=== PATIENT | female | born 1945 | race Caucasian/White ===

== ENCOUNTER → 2017-12-19 08:16 | Outpatient (POV) | payer MEDICARE, SELFPAY | PROVIDERS: Visit Provider Physician Assistant | DX: Z00.00 Encounter for general adult medical examination without abnormal findings (principal) ==

== ENCOUNTER → 2018-12-19 09:23 | Outpatient (POV) | payer MEDICARE, SELFPAY | PROVIDERS: Visit Provider Dermatology | DX: Z00.00 Encounter for general adult medical examination without abnormal findings (principal) ==

== ENCOUNTER → 2018-12-22 08:47 | Outpatient (CLI) | payer MEDICARE, SELFPAY ==
--- NOTE | 2018-12-22 08:51 | MM_ITS ---
MM Dig screening mamm BI w/CAD ORDERING PHYSICIAN : Charlotte Batista MD PATIENT AGE: 73 years GENDER: Female COMPARISON: Bilateral digital mammogram July 2017, July 2016 and 1999 film screen mammogram 2004 INDICATION: ITS.REASON: SCREENING TECHNIQUE: Standard CC and MLO images were obtained. R2 CAD reviewed. FINDINGS: A stable asymmetry of the breast. We again see more evident fibroglandular features at the] quadrant of the left breast the right but this is a long-standing seen on multiple exams including film screen study dating back to 2004. Minimal vascular calcifications both breasts. No suspicious calcifications otherwise. . No significant new findings. Either breast IMPRESSION: ... Stable bilateral mammogram. Stable asymmetry No significant new findings either breast Bilateral follow-up one year BI-RADS Category: 1 Negative RECOMMENDED FOLLOW-UP: 1YR 1 YEAR FOLLOW-UP (A letter has been sent to the patient regarding results of the study.)
== END ==
PROVIDERS: PCP Family Medicine; Visit Provider Family Medicine
DX: Z12.31 Encounter for screening mammogram for malignant neoplasm of breast (principal)
CPT/HCPCS: 77067

== ENCOUNTER 2019-01-23 08:00 | Outpatient (RCR) | payer MEDICARE, SELFPAY ==
--- NOTE | 2018-12-18 08:33 | HMH.PTOPEV ---
PT Outpatient Evaluation Rehab PT Outpatient Evaluation Start: 12/18/18 08:19 Freq: Status: Active Protocol: Document 12/18/18 08:19 PAUL (Rec: 12/18/18 08:33 PAUL [id number]) Electronically Signed By Tom Michel, PT 12/18/18 08:19 Outpatient Therapy Subjective History Subjective History Pt reports h/o chronic LBP beginning ~5 yrs ago with exacerbation over the last 2-3 months. Pt reports mostly midline LBP, however, also reports intermittent L LE radicular s/s, avril. in L calf mm. 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 Chief Complaint Pain Stiff Paresthesia Symptom Type Ache Sharp Dull Numbness Tingling Symptoms Relieved By Rest/Positioning Symptoms Aggravated By Bending/Stooping Physical Activity Lifting Prior Functional Limitations Lifting Housework Current Functional Limitations Lifting Housework Standing Walking Symptom Description Constant but Variable Level of pain today (0-10) 8 Pain scale - at its best (0-10) 5 Pain scale - at its worst (0-10) 8 Lumbopelvic Eval Posture Thoracic Spine Posture Standing Position Increased Kyphosis Lumbar Spine Posture Standing Position Increased Lordosis Assistive device Assistive Devices None / NA Gait Observation General Gait Pattern Observation Antalgic Gait Palapation tenderness bilateral thoracic spinal tenderness Yes: 3/4 lumbar spinal tenderness Yes: 3/4 paraspinal tenderness Yes: 3/4 buttock tenderness Yes: 3/4 Lumbar/Sacral Palpation Findings Tenderness Muscle Guarding Accessory Movement T-spine Vertebrae Accessory Movements Central P/A Bowman that Elicit Symptoms T10 bilateral T11 bilateral T12 bilateral L-spine Vertebrae Accessory Movements Central P/A Bowman that Elicit Symptoms L2
== END 2019-01-23 08:05 | disposition home or self-care (01) ==
LOC: PT 08:00
PROVIDERS: Visit Provider Family Medicine
DX: M40.05 Postural kyphosis, thoracolumbar region (principal)
CPT/HCPCS: 97010; 97012; 97014; 97035; 97110; 97163; G0283

== ENCOUNTER → 2019-06-20 12:23 | Outpatient (CLI) | payer MEDICARE, SELFPAY ==
--- NOTE | 2019-06-20 12:32 | XR_ITS ---
PROCEDURE: XR SHOULDER RT MIN 2V CLINICAL INDICATION: ACUTE RT SHOULDER PAIN COMPARISON: No exams were available for comparison FINDINGS: No fracture, dislocation, lytic change, or blastic change evident. No significant degenerative change IMPRESSION: No acute findings. Dictated by: Moose Garvey MD 06/20/2019 13:10 Signed by: <Electronically signed by Moose Garvey MD in [place]> 06/20/2019 13:10
== END ==
PROVIDERS: PCP Family Medicine; Visit Provider Physician Assistant
DX: M25.511 Pain in right shoulder (principal)
CPT/HCPCS: 73030

== ENCOUNTER 2020-03-16 16:51 | Emergency (ER) | payer MEDICARE, SELFPAY ==
[2020-03-16 16:57] VITALS: BP 147/84; PULSE 96; RESP 18; TEMP 36.9; O2SAT 99; BMI 29.0
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
[2020-03-16 17:42] VITALS: BP 147/84; PULSE 96; RESP 18; TEMP 36.9; O2SAT 99
== END 2020-03-16 17:44 | disposition home or self-care (01) ==
PROVIDERS: Emergency Provider Family Medicine; PCP Family Medicine
DX: S06.0X9A Concussion with loss of consciousness of unspecified duration, initial encounter (principal); W22.8XXA Striking against or struck by other objects, initial encounter; Y92.017 Garden or yard in single-family (private) house as the place of occurrence of the external cause; I10 Essential (primary) hypertension; I48.91 Unspecified atrial fibrillation; E03.9 Hypothyroidism, unspecified; E78.5 Hyperlipidemia, unspecified; Z90.49 Acquired absence of other specified parts of digestive tract; Z90.79 Acquired absence of other genital organ(s)
CPT/HCPCS: 70450; 99282

== ENCOUNTER 2020-05-18 16:31 | Emergency (ER) | payer MEDICARE, SELFPAY ==
[2020-05-18 16:42] VITALS: BP 148/80; PULSE 75; RESP 16; TEMP 37.3; O2SAT 98; BMI 29.2
--- NOTE | 2020-05-18 16:44 | XR_ITS ---
PROCEDURE: XR FOOT RT MIN 3V CLINICAL INDICATION: FOREIGN OBJECT COMPARISON: No exams were available for comparison FINDINGS: No fracture or dislocation. No lytic or blastic change. There is normal mineralization. The joint spaces are well-preserved. No significant degenerative/arthritic changes. No erosive changes evident. There is moderate diffuse soft tissue swelling along the medial aspect of the foot and over the 1st metatarsal head. This could be secondary to a bunion although soft tissue swelling from diffuse cellulitis could give this appearance as well. There are no opaque or semi opaque foreign bodies identified. There is a tiny spur of the calcaneus at the insertion of the plantar tendon. Other findings:None. IMPRESSION: Mild diffuse soft tissue swelling of the forefoot and particularly over the MP joint great toe, see discussion above Dictated by: Dr. Tonio Tejeda MD 05/18/2020 19:[address] Tonio Tejeda MD in [place] 05/18/2020 19:18
[2020-05-18 16:48] VITALS: BP 148/80; PULSE 75; RESP 16; TEMP 37.3; O2SAT 98; BMI 29.2
--- NOTE | 2020-05-18 17:06 | HMH.EDUTC ---
[facility] [place] Disposition Clinical Impression: Puncture wound of right foot Qualifiers: Encounter type: initial encounter Qualified Code(s): S91.331A - Puncture wound without foreign body, right foot, initial encounter Disposition: Home, Self-Care Condition on Discharge: Good Instructions: DI for Puncture Wound Additional Instructions: Keep the wound clean and dry. Follow up with your regular doctor. Take the antibiotics as directed and apply the topical antibiotics as directed. Watch the puncture wound for signs of worsening infection, such as worsening redness, drainage, swelling, etc. GO TO THE ER FOR ANY WORSENING SYMPTOMS Prescriptions: Mupirocin [Bactroban 2% Ointment 22gm tube] 1 applicatio TP TID 7 Days #1 tube Transmission Status: Received by [id number] cephALEXin [Keflex 500mg Cap] 500 mg PO Q6H 7 Days #28 cap Transmission Status: Received by [id number] Referrals: Charlotte Batista MD [Primary Care Provider] - Time of Disposition: 17:10 Medical Decision Making - Medical Records Medical records reviewed: No: I reviewed the patient's medical records. - Seth Inquiry Pt receiving controlled substance: No Vital Signs: 05/18/20 16:42 05/18/20 16:48 05/18/20 17:15 Temperature 99.1 F 99.1 F 99.1 F Temperature Source Oral Oral Pulse Rate 75 Pulse Rate [Left Radial] 75 75 Respiratory Rate 16 16 16 Blood Pressure 148/80 H Blood Pressure [Right Arm] 148/80 H 148/80 H Blood Pressure Mean [Right Arm] 102 102 Blood Pressure Source [Right Arm] Automatic Cuff Blood Pressure Position [Right Arm] Sitting Sitting 02 Sat by Pulse Oximetry 98 98 Oxygen Delivery Method Room Air Room Air - Radiology Data #1 Image(s): Foot/Toes Image Reviewed: Yes I reviewed the patient's radiology image - US Data Preliminary Findings: Normal/NAD Findings Narrative: no foreign body identified [facility] [place] HPI - General Stated complaint: Ran needle in r foot, part may still be in there Time Seen by Provider: 05/18/20 16:45 Mode of Arrival: Ambulatory Source of Information: Patient Limitations: No Limitations Description of Symptoms (Recalled from Triage Doc. by RN): PT STATES STEPPED ON A NEEDLE AND WHEN SHE PULLED IT OUT THERE WAS ONLY HALF OF NEEDLE HEENT Symptoms (Recalled from RN notes): No Resp Symptoms (Recalled from RN notes): No Skin Symptoms (Recalled from RN notes): Yes MS Symptoms (Recalled from RN notes): No Functional Status (Recalled from RN notes): WNL - History of Present Illness Provider Complaint: She states that somehow there was a sewing needle in her right shoe. When she put the shoe on earlier, the needle punctured into the front part of the bottom of her foot, just below the base of her big toe. She is concerned that the needle could have broke off in her foot because the needle was broken when she pulled it back out. - Related Data Home Medications Medication Instructions Recorded Confirmed atorvastatin 10 mg tablet PO 90 Days #90 02/27/18 diazepam 10 mg tablet PO 1 Days #1 02/27/18 levothyroxine 25 mcg tablet PO 90 Days #90 02/27/18 lisinopril 10 PO 90 Days #90 02/27/18 mg-hydrochlorothiazide 12.5 mg tablet lisinopril 20 mg tablet PO 90 Days #180 02/27/18 meloxicam 15 mg tablet PO 90 Days #90 02/27/18 potassium chloride 10 mEq PO 30 Days #60 02/27/18 tablet,extended release rivaroxaban 20 mg tablet PO 90 Days #90 02/27/18 sotalol 80 mg tablet PO 90 Days #90 02/27/18 venlafaxine 150 mg PO 90 Days #90 02/27/18 capsule,extended release 24 hr Previous Rx's Medication Instructions Recorded Mupirocin [Bactroban 2% Ointment 1 applicatio TP BID 10 Days #1 tube 10/04/19 22gm tube] Sulfamethoxazole/Trimethoprim 1 each PO BID 14 Days #28 tab 10/04/19 [Bactrim DS tablet] guaiFENesin [Mucinex 600mg tablet] 600 mg PO BID 15 Days #30 10/04/19 tab.er.12h Mupirocin [Bactroban 2% Ointment 1 applicatio TP TID 7
[2020-05-18 17:15] VITALS: BP 148/80; PULSE 75; RESP 16; TEMP 37.3; O2SAT 98
== END 2020-05-18 17:18 | disposition home or self-care (01) ==
PROVIDERS: Emergency Provider Nurse Practitioner Family; PCP Family Medicine
DX: S91.331A Puncture wound without foreign body, right foot, initial encounter (principal); W22.8XXA Striking against or struck by other objects, initial encounter; Y92.019 Unspecified place in single-family (private) house as the place of occurrence of the external cause; I10 Essential (primary) hypertension; I48.91 Unspecified atrial fibrillation; E78.5 Hyperlipidemia, unspecified; E03.9 Hypothyroidism, unspecified; Z88.8 Allergy status to other drugs, medicaments and biological substances; Z90.49 Acquired absence of other specified parts of digestive tract; Z90.79 Acquired absence of other genital organ(s); Z79.899 Other long term (current) drug therapy
CPT/HCPCS: 73630; 99201

== ENCOUNTER → 2020-06-06 14:24 | Outpatient (CLI) | payer MEDICARE, SELFPAY ==
--- NOTE | 2020-06-06 14:31 | CT_ITS ---
PROCEDURE: CT HEAD/BRAIN WO CON CLINICAL INDICATION: MEMORY LOSS, POST CONCUSSIVE SYNDROME, FALLS Confusion COMPARISON: CT CT HEAD/BRAIN WO CON from 03/16/2020 TECHNIQUE: Axial images obtained. All CT scans at the facility use one or more dose reduction, viz: automated exposure control, ma/kV adjustment per patient size (including targeted exams where dose is matched to indication, i.e. head), or iterative reconstruction technique. FINDINGS: No midline shift, mass effect, intracranial hemorrhage, hydrocephalus, or extra-axial fluid collection is evident. The calvarium has an unremarkable appearance. No mastoid effusion. No sinus air-fluid level. There is a small osteoma in the left ethmoid sinus. IMPRESSION: No acute intracranial finding Dictated b Moose Garvey MD 06/06/2020 15:24 Moose Garvey MD in [place] 06/06/2020 15:24
== END ==
PROVIDERS: PCP Physician Assistant; Visit Provider Physician Assistant
DX: F07.81 Postconcussional syndrome (principal); R41.3 Other amnesia; R29.6 Repeated falls
CPT/HCPCS: 70450

== ENCOUNTER → 2020-06-18 14:06 | Outpatient (CLI) | payer MEDICARE, SELFPAY ==
[2020-06-18 14:55] LABS: Basophils % 0.6 % (0.1-2.0); Eosinophils # 0.2 K/mm3 (0.0-0.4); Eosinophils % 3.8 % (0.1-12.0); Hematocrit 29.8 % (37.0-47.0); Hemoglobin 9.7 g/dL (12.2-16.2); Lymphocytes % 25.6 % (10-50); Mean Corpuscular HGB Conc 32.6 g/dL (31.8-35.4); Mean Corpuscular Volume 76.6 fl (81-99); Mean Platelet Volume 8.1 fl (7.4-10.4); Monocytes # 0.3 K/mm3 (0.1-1.0); Monocytes % 7.9 % (1.7-9.3); Neutrophils # 2.4 K/mm3 (1.8-7.8); Neutrophils % 62.1 % (37.0-80.0); Platelet Count 186 K/mm3 (142-424); Red Blood Count 3.88 M/mm3 (4.20-5.40); Red Cell Distribution Width 15.8 % (11.5-17.5); White Blood Count 3.9 K/mm3 (4.8-10.8)
[2020-06-18 15:10] LABS: Chloride 106 mmol/L (98-107); Potassium 4.5 mmoL/L (3.5-5.1); Sodium 140 mmol/L (136-145)
[2020-06-18 15:12] LABS: Blood Urea Nitrogen 16 mg/dl (7-17); Estimated Glomerular Filt Rate 61 ml/min (>60); GFR (African American) 74 ML/MIN (>60)
[2020-06-18 15:13] LABS: Alanine Aminotransferase 16 U/L (12-78); Albumin Level 3.7 g/dl (3.5-5.0); Albumin/Globulin Ratio 1.3 (1.1-1.8); Alkaline Phosphatase 76 U/L (38-126); Anion Gap 13.5 mEq/L (5-15); Aspartate Amino Transferase 26 U/L (14-36); Bilirubin,Total 0.5 mg/dl (0.2-1.3); Calcium 8.9 mg/dl (8.4-10.2); Carbon Dioxide 25 mmol/L (22.0-30.0); Globulin 2.9 g/dL (1.3-3.2); Glucose 111 mg/dl (74-100); Total Protein,Serum 6.6 g/dl (6.3-8.2)
[2020-06-18 15:17] LABS: Erythrocyte Sedimentation Rate 24 mm/hr (0-30)
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
[2020-06-18 15:44] LABS: Thyroid Stimulating Hormone 2.59 uIU/mL (0.465-4.68)
[2020-06-20 10:15] LABS: Vitamin B12 652 pg/mL (232-1245)
[2020-06-20 10:16] LABS: Folate 16.7 ng/mL (>3.0)
[2020-06-20 15:15] LABS: Anti-Centromere B Antibodies <0.2 AI (0.0-0.9); Anti-Jo-1 <0.2 AI (0.0-0.9); Anti-Smith Antibody <0.2 AI (0.0-0.9); Antichromatin Antibodies <0.2 AI (0.0-0.9); Antiscleroderma-70 Antibodies <0.2 AI (0.0-0.9); RNP Antibodies <0.2 AI (0.0-0.9); Sjogren's Anti-SS-A <0.2 AI (0.0-0.9); Sjogren's Anti-SS-B <0.2 AI (0.0-0.9)
[2020-06-21 10:15] LABS: Anti-DNA (DS) Ab Qn <1 IU/mL (0-9)
== END ==
PROVIDERS: PCP Physician Assistant; Visit Provider Nurse Practitioner Family
DX: E53.8 Deficiency of other specified B group vitamins (principal); G47.00 Insomnia, unspecified; G47.30 Sleep apnea, unspecified; M21.371 Foot drop, right foot; R06.83 Snoring; R26.81 Unsteadiness on feet; R41.3 Other amnesia; R51 Headache; R53.83 Other fatigue
CPT/HCPCS: 36415; 70551; 80053; 82607; 82746; 84443; 85025; 85651; 86225; 86235

== ENCOUNTER → 2020-06-30 09:01 | Outpatient (CLI) | payer MEDICARE, SELFPAY ==
[2020-06-30 13:39] LABS: Coronavirus 19 IgG Antibody Negative (Negative); Coronavirus 19 IgM Antibody Negative (Negative)
== END ==
PROVIDERS: Visit Provider Nurse Practitioner Family
DX: Z03.818 Encounter for observation for suspected exposure to other biological agents ruled out (principal)
CPT/HCPCS: 36415; 86328

== ENCOUNTER → 2020-07-01 19:56 | Outpatient (CLI) | payer MEDICARE, SELFPAY | PROVIDERS: PCP Physician Assistant; Visit Provider Nurse Practitioner Family | DX: G47.00 Insomnia, unspecified (principal); G47.19 Other hypersomnia; G47.30 Sleep apnea, unspecified; R06.83 Snoring; R41.3 Other amnesia; R51 Headache; R53.83 Other fatigue; Z68.29 Body mass index [BMI] 29.0-29.9, adult; G47.61 Periodic limb movement disorder | CPT/HCPCS: 95810 ==

== ENCOUNTER → 2020-07-10 09:48 | Outpatient (CLI) | payer MEDICARE, SELFPAY ==
[2020-07-10 10:51] LABS: Hemoglobin A1C 5.7 % (4.0-6.0)
[2020-07-11 17:55] LABS: Albumin 3.4 g/dL (2.9-4.4); Alpha-1-Globulin 0.3 g/dL (0.0-0.4); Alpha-2-Globulin 0.9 g/dL (0.4-1.0); Protein, Total 6.5 g/dL (6.0-8.5)
== END ==
PROVIDERS: Visit Provider Specialist
DX: R73.9 Hyperglycemia, unspecified (principal)
CPT/HCPCS: 36415; 83036; 84155; 84165; 86334

== ENCOUNTER → 2020-08-22 14:09 | Outpatient (CLI) | payer MEDICARE, SELFPAY ==
[2020-08-22 14:33] LABS: Basophils % 0.7 % (0.1-2.0); Eosinophils # 0.2 K/mm3 (0.0-0.4); Eosinophils % 3.7 % (0.1-12.0); Hematocrit 38.5 % (37.0-47.0); Hemoglobin 12.5 g/dL (12.2-16.2); Lymphocytes # 1.2 K/mm3 (0.7-4.5); Lymphocytes % 26.4 % (10-50); Mean Corpuscular HGB Conc 32.4 g/dL (31.8-35.4); Mean Corpuscular Hemoglobin 26.6 pg (27.0-31.2); Mean Platelet Volume 7.6 fl (7.4-10.4); Monocytes # 0.3 K/mm3 (0.1-1.0); Monocytes % 5.6 % (1.7-9.3); Neutrophils # 2.9 K/mm3 (1.8-7.8); Neutrophils % 63.5 % (37.0-80.0); Platelet Count 159 K/mm3 (142-424); Red Cell Distribution Width 17.1 % (11.5-17.5); White Blood Count 4.5 K/mm3 (4.8-10.8)
[2020-08-22 15:42] LABS: Ferritin 19.6 ng/ml (11.1-264)
[2020-08-22 15:59] LABS: Chloride 104 mmol/L (98-107); Potassium 4.1 mmoL/L (3.5-5.1); Sodium 138 mmol/L (136-145)
[2020-08-22 16:01] LABS: Alanine Aminotransferase 15 U/L (12-78); Aspartate Amino Transferase 29 U/L (14-36)
[2020-08-22 16:02] LABS: Albumin Level 4.2 g/dl (3.5-5.0); Albumin/Globulin Ratio 1.5 (1.1-1.8); Alkaline Phosphatase 76 U/L (38-126); Anion Gap 11.1 mEq/L (5-15); Calcium 9.3 mg/dl (8.4-10.2); Carbon Dioxide 27 mmol/L (22.0-30.0); Globulin 2.8 g/dL (1.3-3.2); Glucose 95 mg/dl (74-100)
[2020-08-22 16:12] LABS: Vitamin B12 875 pg/mL (239-931)
[2020-08-22 16:22] LABS: Blood Urea Nitrogen 21 mg/dl (7-17); Estimated Glomerular Filt Rate 49 ml/min (>60); GFR (African American) 59 ML/MIN (>60); Iron 149 ug/dL (37-170)
[2020-08-22 16:32] LABS: Total Iron Binding Capacity 367 ug/dL (265-497)
[2020-08-22 18:12] LABS: Bilirubin,Total 0.4 mg/dl (0.2-1.3)
== END ==
PROVIDERS: Visit Provider Internal Medicine Medical Oncology
DX: D64.9 Anemia, unspecified (principal)
CPT/HCPCS: 36415; 80053; 82607; 82728; 82746; 83540; 83550; 85025

== ENCOUNTER → 2020-09-15 13:40 | Outpatient (POV) | payer MEDICARE, SELFPAY | PROVIDERS: Visit Provider Nurse Practitioner Family | DX: Z00.00 Encounter for general adult medical examination without abnormal findings (principal) ==

== ENCOUNTER → 2020-12-31 14:09 | Outpatient (CLI) | payer MEDICARE, SELFPAY ==
--- NOTE | 2020-12-31 14:22 | XR_ITS ---
PROCEDURE: XR HIP LT 2-3V W/PELVIS CLINICAL INDICATION: LT HIP INJURY,PAIN IN PELVIS COMPARISON: CR BONE3 BONE DENSITOMETRY(HIP:LT SPINE from 07/18/2015 CR BONE3 BONE DENSITOMETRY(HIP:LT SPINE from 08/02/2017 FINDINGS: Mild osteoarthritic changes are present involving both hips as seen on the AP view of the pelvis. No acute fracture or dislocation. No lytic or blastic change. IMPRESSION: Mild osteoarthritis Dictated by: Moose Garvey MD 12/31/2020 15:20 Moose Garvey MD in [place] 12/31/2020 15:20
--- NOTE | 2020-12-31 14:22 | XR_ITS ---
PROCEDURE: XR FEMUR LT 2V CLINICAL INDICATION: Pain COMPARISON: No exams were available for comparison FINDINGS: No fracture or dislocation. No lytic or blastic change. There is normal mineralization. Mild osteoarthritic changes are present at the hip and moderate osteoarthritic changes at the knee. Other findings:None. IMPRESSION: Osteoarthritis otherwise negative Dictated by: Moose Garvey MD 12/31/2020 15:19 Moose Garvey MD in [place] 12/31/2020 15:19
== END ==
PROVIDERS: PCP Physician Assistant; Visit Provider Physician Assistant
DX: S79.912A Unspecified injury of left hip, initial encounter (principal); R10.2 Pelvic and perineal pain
CPT/HCPCS: 73502; 73552

== ENCOUNTER → 2021-01-07 12:31 | Outpatient (CLI) | payer MEDICARE, SELFPAY ==
[2021-01-07 14:14] LABS: Coronavirus 19 IgG Antibody Negative (Negative); Coronavirus 19 IgM Antibody Negative (Negative)
== END ==
PROVIDERS: Visit Provider Internal Medicine Gastroenterology
DX: Z01.812 Encounter for preprocedural laboratory examination (principal)
CPT/HCPCS: 36415; 86328

== ENCOUNTER 2021-01-09 08:41 | Day surgery (SDC) | payer MEDICARE, SELFPAY ==
[2021-01-06 13:54] VITALS: BMI 27.6
[2021-01-09] VITALS (7 sets, daily range): BP systolic 131–152; BP diastolic 67–91; PULSE 48–60; RESP 16–18; TEMP 36.3–36.4; O2SAT 93–100
--- NOTE | 2021-01-09 10:24 | HMH.ANESCL ---
[facility] Anesthesia Checklist - Patient Identification Patient Identification: Arm Band - Structural Data Admitted From: Home Planned Operative Procedure/s: egd/colonoscopy Consent for Planned Operative Procedure(s) Verified: Yes Verified Documents: Surgical Consent, History and Physical - NPO Status Verified Time NPO: 00:00 - Additional verifications Anesthesia Reactions: No - Airway Assessment C-Spine Mobility Assessed: Yes (mp2) TMJ Mobility Assessed: Yes Dentition: Edentulous - Neurological Assessment Level of Consciousness: Awake, Alert - Anesthesia Plan Anesthesia Risk discussed: Yes Anesthesia Plan: Verified ASA Class: III Anesthesia Type: MAC [facility] History I have reviewed the patient's past medical history: Yes Medical History: Reports:: Anxiety, Atrial Fibrillation, Cancer (skin), Depression, Hyperlipidemia, Hypertension, Migraine, Peripheral Vascular Disease Denies:: Diabetes Mellitus Type 1, Diabetes Mellitus Type 2, Internal Pacemaker, MRSA, Seizures *Have you ever received a pneumonia vaccine?: No *Have you received a flu vaccine this season?: No Other Medical History: Reports: Anemia, Arthritis, Hypothyroidism, Thyroid Disease Anesthesia experience/problems:: nac Laterality Cases: Bilateral: Other Other Surgeries: Yes: Cholecystectomy, Hysterectomy-Total, Other. No: Pacemaker Amputation: No Fractures: No - *Social History Smoking Status: Never smoker Alcohol Intake: never Substance Use Type: denies use *Occupational Status:: other Housing: house Household Members: none *Travel in the last 8 weeks: None - Psychiatric History Pschychiatric History:: Reports:: Anxiety, Depression Family Hx:: Heart Attack, Diabetes, Hypertension, Hyperlipidemia
--- NOTE | 2021-01-09 10:36 | HMH.PROC ---
[facility] Procedure Note Procedure Note:: Upper Endoscopy Procedure Report: Esophagogastroduodenoscopy with cold biopsies and TTS balloon dilation Endoscopost: David Chaves II, MD Referring Physician: Lora Benito MD/Luh RAMESH Date of Procedure: January 09, 2021 Equipment: Olympus GIF 190 standard upper endoscope Sedation: MAC sedation Indications: Mrs. Wilson is a 75-year-old female with iron deficiency anemia. Her hemoglobin was 9.7. She reports no melena or hematochezia. She was Hemoccult negative. She is on Xarelto. She does have some intermittent dysphagia. She reports no heartburn or reflux. She has had some constipation. This is her first upper endoscopy. She also takes meloxicam every other day. She had a negative Cologuard test 6 months ago. Procedure: Prior to the procedure, a history and physical exam was performed, and patient's medications and allergies were reviewed. The risks, benefits and alternatives of the sedation and procedure were discussed with the patient. All questions were answered and informed consent was obtained. The patient was brought to the procedure room. Patient identification and proposed procedure were verified by the physician and the nurse. The patient was placed in a left lateral decubitus position and the scope was passed under direct vision. Throughout the procedure, the patient's blood pressure, pulse, and oxygen saturations were monitored continuously. The upper GI endoscopy was accomplished without difficulty. The patient tolerated the procedure well. Findings: The scope was passed directly into the upper esophagus and advanced to the third portion of the duodenum. The post bulbar duodenum and duodenal bulb were normal with normal mucosa and conniventes. There was a single nonbleeding angiodysplasia identified in the duodenal bulb. The scope was withdrawn through the duodenal bulb and normal pylorus into the stomach. There was bile reflux with linear reactive gastropathy of the antrum and a portion of the body. There was also moderate chronic gastritis with some atrophic gastritis of the body and fundus. Upon retroflexion there was a moderate to large 5 cm hiatal hernia. There were no apparent Bryant's erosions. Cold biopsies were taken from the antrum and the lesser curvature and greater curvature to rule out H. pylori or gastric atrophy. The scope was then withdrawn into the esophagus. There was no evidence of reflux esophagitis, Crews's or Schatzki's ring. There were strong tertiary contractions and evidence of moderate esophageal dysmotility and some presbyesophagus. The entire esophagus was dilated to 60 Occitan/20 mm with a TTS hydrostatic balloon. There was some resistance at the cricopharyngeus. The remainder of the esophageal mucosa was normal. Impression: 1. Cricopharyngeal spasm status post dilation to 20 mm 2. Moderate sized hiatal hernia (5 cm) without Bryant's erosions 3. Presbyesophagus 4. Bile reflux with linear reactive gastropathy and moderate chronic gastritis Plan: I will follow-up the biopsies. There was no clear etiology for the patient's iron deficiency anemia. This may be contributed to by some mild gastric atrophy. I will proceed with diagnostic colonoscopy.
--- NOTE | 2021-01-09 11:00 | HMH.PROC ---
[facility] Procedure Note Procedure Note:: Colonoscopy Procedure Report: Colonoscopy with cold snare polypectomy Endoscopist: David Chaves II, MD Referring physician: Lora Benito MD/Luh RAMESH Date of Procedure: January 09, 2021 Equipment: Olympus 190 variable stiffness pediatric colonoscope Sedation: MAC sedation Indication: Mrs. Wilson is a 75-year-old female with iron deficiency anemia. Her hemoglobin was 9.7. The patient has had some fatigue and malaise. She was on Coumadin previously but more recently has been on Xarelto. She reports no bright red rectal bleeding or hematochezia. She was Hemoccult negative. She has had some constipation. Her weight is fluctuating. The patient reports no family history of colon cancer. She does not know all of her family history. This is her first colonoscopy. Procedure: Prior to the procedure, a history and physical exam was performed, and patient's medications and allergies were reviewed. The risks, benefits and alternatives of the sedation and procedure were discussed with the patient. All questions were answered and informed consent was obtained. The patient was brought to the procedure room. Patient identification and proposed procedure were verified by the physician and the nurse. The patient was placed in a left lateral decubitus position and the scope was passed under direct vision. Throughout the procedure, the patient's blood pressure, pulse, and oxygen saturations were monitored continuously. The colonoscopy was accomplished without difficulty. The patient tolerated the procedure well. Findings: On digital rectal examination there was normal rectal tone. There were no external hemorrhoids. The colonoscope was introduced through the anal canal to the rectum and advanced to the cecum. The ileocecal valve and appendiceal orifice were identified. The scope was advanced a short distance into the ileum which appeared grossly normal. The scope was then withdrawn into the colon. The cecum was normal. There was a flat polyp that was 19 to 20 mm in the ascending colon with some surface mucus suggesting serrated adenoma. This was removed via piecemeal resection using cold snare polypectomy. The remainder of the ascending and transverse colon were normal. There were scattered diverticuli throughout the descending and sigmoid colon (LEFT colon). The rectum itself was normal. Upon retroflexion within the rectum there were grade 1-2 internal hemorrhoids. The preparation was excellent throughout with S[place]sey Preparation Score of 9. The cecal time was 12 minutes. Impression: 1. Ascending colon polyp (19 to 20 mm)?rule out serrated adenoma 2. Left-sided diverticulosis 3. Grade 1-2 internal hemorrhoids Plan: Again, there was no source for the patient's iron deficiency anemia. I would recommend Hemoccult testing. If the patient is Hemoccult positive, I would consider video capsule enteroscopy. She does state that her prior Hemoccult testing was negative. I would consider parenteral iron infusion. I will follow up the polyp histology. If the polyp is a serrated adenoma, I would recommend surveillance colonoscopy again in 3 years. I am going to recommend that the patient begin a fiber bowel regimen (combined MiraLAX plus Metamucil) daily.
== END 2021-01-09 11:58 | disposition home or self-care (01) ==
LOC: OUTP 08:44
PROVIDERS: PCP Physician Assistant; Visit Provider Internal Medicine Gastroenterology
PROC: 0DJ08ZZ Inspection of Upper Intestinal Tract, Via Natural or Artificial Opening Endoscopic (ICD-10-PCS; CPT 43235; principal; 2021-01-09 10:00)
DX: J39.2 Other diseases of pharynx (principal); K22.4 Dyskinesia of esophagus; K44.9 Diaphragmatic hernia without obstruction or gangrene; K22.8 Other specified diseases of esophagus; K31.9 Disease of stomach and duodenum, unspecified; K29.50 Unspecified chronic gastritis without bleeding; K63.5 Polyp of colon; K57.30 Diverticulosis of large intestine without perforation or abscess without bleeding; K64.0 First degree hemorrhoids; D50.9 Iron deficiency anemia, unspecified; Z79.01 Long term (current) use of anticoagulants; I10 Essential (primary) hypertension
CPT/HCPCS: 43239; 43249; 45385; 88305; 88342; C1726

== ENCOUNTER 2021-02-25 09:00 | Outpatient (RCR) | payer MEDICARE, SELFPAY ==
--- NOTE | 2021-01-28 09:36 | HMH.PTOPEV ---
PT Outpatient Evaluation Rehab PT Outpatient Evaluation Start: 01/28/21 08:39 Freq: Status: Active Protocol: Document 01/28/21 09:18 KATE (Rec: 01/28/21 09:36 KATE [id number]) Electronically Signed By Zach Lopez, PT 01/28/21 09:18 Outpatient Therapy Subjective History Subjective History Patient is a 75 year old female presenting to outpatient PT with reports of L hip pain starting 1 month ago of insidious onset. Most recent imaging indicates mild L hip OA. Comorbidities include hx of A-fib, OA, HTN, HL and recent diagnosis of Alzheimers. Patient has experienced falls x 3 over the past 3 months. Patient reports that she has followed up with MD after falls involving hitting her head with no resultant problems. Patient also complains of L knee pain. Chief Complaint Pain,Stiff,Swelling Symptom Type Ache Symptoms Relieved By Rest/Positioning,Heat,OTC Meds Symptoms Aggravated By Standing,Physical Activity, Walking Prior Functional Limitations None Current Functional Limitations Housework,Standing,Squatting, Recreation Activity,Walking, Stairs,Balance,Bending/ Stooping Symptom Description Constant but Variable Level of pain today (0-10) 4 Pain scale - at its best (0-10) 4 Pain scale - at its worst (0-10) 9 Hip/Knee Eval Gait Observation General Gait Pattern Observation Antalgic Gait,Decrease Weight Bear (L) Assistive Device Assistive Devices None / NA Palpation Tenderness left Knee Palpation Finding Tenderness Knee Palpation Overall Comment L hip greater trochanteric bursa 3/4 MMT right Hip Flexion Strength Grade 4- Good- Hip Abduction Strength Grade 4- Good- Hip Adduction Strength Grade 4- Good- Hip External Rotation Strength Grade 3+ Fair+ Hip Internal Rotation Strength Grade 3+ Fair+ Knee Extension Strength Grade 4- Good- Knee Flexion Strength Grade 4- Good- left Hip Flexion Strength Grade 3+ Fair+ Hip Abduction Strength Grade 3+ Fair+ Hip Adduction Strength Grade 3+ Fair+ Hip External Rotation Strength Grade 3 Fair Hip Internal Rotati
--- NOTE | 2021-02-25 09:49 | HMH.RHREAS ---
Rehab Reassessment Rehab OP Re-assessment Start: 02/25/21 08:50 Freq: Status: Active Protocol: Document 02/25/21 09:33 KATE (Rec: 02/25/21 09:49 KATE [id number]) Electronically Signed By Zach Lopez, PT 02/25/21 09:33 Rehab Re-assessment Subjective Subjective Patient report 50% improvement since start of care. I'm feeling better. I just really don't want to have surgery. Objective Objective Notes AROM: hip flx 92; abd 45; ext 8; ER 38; IR 15 MMT: LLE hip and thigh mm 4/5 grossly Pain: 2/10 today; 3/10 at worst over past week Neuro: WNL Special tests: - Assessment Progress Assessment Progressing as Expected Assessment Notes Objective improvements as noted above. Compliance with HEP noted. Functional limitations have improved but persist with all standing/ ambulatory activities, especially with stairs. Rx has consisted of LLE hip/thigh mm stretching and modalities for anti-inflammatory/pain reduction purposes. Main complaint most recently is pain in OA distribution of L groin. MMT deficits persist as noted above. Patient goals met STG's, LTG 4,5 Goals Not Met LTG 1,2,3,6,7,8 Revised Goals NA Plan Plan Continue with current POC. Frequency of Therapy 2x/week Duration of therapy 4 weeks Time and Billing Re-Eval Time 15 Re-Eval Billing Units 1 PHYSICIAN CERTIFICATION: I certify the specified therapy services for Karina Wilson are required, authorized, and reviewed every 30 days.
== END 2021-02-25 09:05 | disposition home or self-care (01) ==
LOC: PT 09:00
PROVIDERS: PCP Physician Assistant; Visit Provider Orthopaedic Surgery
DX: M70.62 Trochanteric bursitis, left hip (principal); M16.12 Unilateral primary osteoarthritis, left hip
CPT/HCPCS: 97010; 97014; 97033; 97035; 97110; 97163; 97164; G0283

== ENCOUNTER → 2021-05-18 09:48 | Outpatient (CLI) | payer MEDICARE, SELFPAY ==
[2021-05-18 10:27] LABS: Basophils % 0.5 % (0.1-2.0); Eosinophils # 0.1 K/mm3 (0.0-0.4); Eosinophils % 1.4 % (0.1-12.0); Hematocrit 37.3 % (37.0-47.0); Hemoglobin 12.4 g/dL (12.2-16.2); Lymphocytes # 1.1 K/mm3 (0.7-4.5); Lymphocytes % 16.5 % (10-50); Mean Corpuscular HGB Conc 33.4 g/dL (31.8-35.4); Mean Corpuscular Hemoglobin 28.9 pg (27.0-31.2); Mean Corpuscular Volume 86.7 fl (81-99); Mean Platelet Volume 7.6 fl (7.4-10.4); Monocytes # 0.2 K/mm3 (0.1-1.0); Monocytes % 3.6 % (1.7-9.3); Neutrophils # 5.2 K/mm3 (1.8-7.8); Neutrophils % 77.9 % (37.0-80.0); Platelet Count 178 K/mm3 (142-424); Red Cell Distribution Width 13.6 % (11.5-17.5); White Blood Count 6.7 K/mm3 (4.8-10.8)
[2021-05-18 10:58] LABS: Chloride 108 mmol/L (98-107); Potassium 4.1 mmoL/L (3.5-5.1); Sodium 142 mmol/L (136-145)
[2021-05-18 11:01] LABS: Alanine Aminotransferase 15 U/L (12-78); Albumin Level 3.9 g/dl (3.5-5.0); Albumin/Globulin Ratio 1.4 (1.1-1.8); Alkaline Phosphatase 84 U/L (38-126); Anion Gap 11.1 mEq/L (5-15); Aspartate Amino Transferase 23 U/L (14-36); Bilirubin,Total 0.7 mg/dl (0.2-1.3); Blood Urea Nitrogen 23 mg/dl (7-17); Calcium 9.3 mg/dl (8.4-10.2); Carbon Dioxide 27 mmol/L (22.0-30.0); Estimated Glomerular Filt Rate 61 ml/min (>60); GFR (African American) 74 ML/MIN (>60); Globulin 2.7 g/dL (1.3-3.2); Glucose 155 mg/dl (74-100); Iron 87 ug/dL (37-170); Total Protein,Serum 6.6 g/dl (6.3-8.2)
[2021-05-18 11:10] LABS: Total Iron Binding Capacity 288 ug/dL (265-497)
[2021-05-18 11:35] LABS: Ferritin 50.2 ng/ml (11.1-264)
== END ==
PROVIDERS: Visit Provider Internal Medicine Medical Oncology
DX: D50.9 Iron deficiency anemia, unspecified (principal)
CPT/HCPCS: 36415; 80053; 82728; 83540; 83550; 85025

== ENCOUNTER 2021-07-25 13:14 | Emergency (ER) | payer MEDICARE, SELFPAY ==
--- NOTE | 2021-07-25 13:22 | HMH.EDGENADL ---
ED Disposition Clinical Impression: Anterior epistaxis Disposition: Home, Self-Care Condition on Discharge: Good Instructions: DI for Nosebleed Additional Instructions: Additional instructions for NOSE BLEED: If nosebleed starts again, squeeze your nostrils together with thumb and forefinger for 5 minutes. If unable to stop the bleeding, return to the emergency department. Call Dr. Cárdenas (ENT) to schedule an appointment if you have recurrent nosebleeds. Referrals: Luh Sesay PA [Primary Care Provider] - - Critical Care Critical Care Time: No Attestation: On , the high probability of a clinically significant, sudden or life threatening deterioration of the following system(s) required my full and direct attention, intervention and personal management. The time I documented below is in addition to time spent performing reported procedures but includes the following listed in this critical care notation. Medical Decision Making - Seth Inquiry Pt receiving controlled substance: No Vital Signs: 07/25/21 13:51 07/25/21 14:03 Temperature 98.4 F 98.5 F Temperature Source Oral Oral Pulse Rate 73 Pulse Rate [Apical] 91 H Respiratory Rate 16 16 Blood Pressure 140/88 Blood Pressure [Right Arm] 162/102 H Blood Pressure Mean [Right Arm] 122 Blood Pressure Source Automatic Cuff Blood Pressure Source [Right Arm] Automatic Cuff Blood Pressure Position Sitting Blood Pressure Position [Right Arm] Sitting 02 Sat by Pulse Oximetry 98 98 Oxygen Delivery Method Room Air Room Air Orders (Tests/Meds): ED MEDICATIONS Generic Name Dose Route Start Last Admin Trade Name Freq PRN Reason Stop Dose Admin Silver Nitrate 3 each 07/25/21 13:48 Silver Nitrate Applicator TP 07/25/21 13:49 ONCE ONE Discontinued Medications Generic Name Dose Route Start Last Admin Trade Name Freq PRN Reason Stop Dose Admin Cocaine HCl 4 ml 07/25/21 13:48 07/25/21 13:50 Cocaine 4% Topical Soln 4ml Bottle TP 07/25/21 13:49 4 ml ONCE ONE Administration Oxymetazoline HCl 1 ml 07/25/21 13:49 07/25/21 13:50 Oxymetazoline Nasal [place] 0.05% 15ml NS 07/25/21 13:50 1 spray ONCE ONE Administration - Reevaluation(s) Time: 14:26 Reevaluation #1: no bleeding, BP 140/88 General Adult HPI - General Stated complaint: nose bleed Time Seen by Provider: 07/25/21 13:23 - History of Present Illness HPI narrative: Complains of a right-sided nosebleed that started 10 minutes prior to arrival. The patient is on Xarelto for atrial fibrillation. Prior history of nosebleeds many years ago. None recently. - Related Data Home Medications Medication Instructions Recorded Confirmed cyanocobalamin (vitamin B-12) 1,000 mcg PO DAILY 06/16/20 05/14/21 1,000 mcg capsule sotalol 80 mg tablet 80 mg PO BID PRN 90 Days #180 tab 06/16/20 05/14/21 levothyroxine 25 mcg tablet 25 mcg PO DAILY 90 Days #90 tab 08/07/20 05/14/21 meloxicam 15 mg tablet 15 mg PO DAILY 90 Days #90 tab 08/07/20 05/14/21 venlafaxine 150 mg 150 mg PO DAILY 90 Days #90 cap 08/07/20 05/14/21 capsule,extended release 24 hr valsartan 320 1 tab PO DAILY 08/22/20 05/14/21 mg-hydrochlorothiazide 12.5 mg tablet atorvastatin 10 mg tablet 10 mg PO HS 90 Days #90 tab 11/13/20 05/14/21 rivaroxaban 20 mg tablet 20 mg PO HS 90 Days #90 tab 11/13/20 05/14/21 Clobetasol Propionate [Temovate 1 applic TOPICAL BID 01/06/21 05/14/21 0.05% cream 15gm tube] acetaminophen 500 mg tablet 500 mg PO Q6H PRN 05/14/21 05/14/21 Previous Rx's Medication Instructions Recorded cetirizine 10 mg capsule 10 mg PO DAILY #90 cap 11/13/20 donepezil 10 mg tablet 10 mg PO DAILY #30 tab 05/14/21 memantine 10 mg tablet 10 mg PO BID #60 tab 05/14/21 Allergies Allergy/AdvReac Type Severity Reaction Status Date / Time diphenhydramine Allergy Unknown HYPER Verified 05/14/21 14:54 [From BENADRYL] tuberculin, purified protein Allergy Unknown
[2021-07-25 13:47] VITALS: BMI 24.7
[2021-07-25 13:51] VITALS: BP 162/102; PULSE 91; RESP 16; TEMP 36.9; O2SAT 98; BMI 24.7
[2021-07-25 14:03] VITALS: BP 140/88; PULSE 73; RESP 16; TEMP 36.9; O2SAT 98
[2021-07-25 14:05] VITALS: BP 140/88; PULSE 73; RESP 16; O2SAT 98
[2021-07-25 14:30] VITALS: BP 124/73; PULSE 62; RESP 15; O2SAT 98
[2021-07-25 14:56] VITALS: BP 124/73; PULSE 62; RESP 18; TEMP 36.9; O2SAT 98
== END 2021-07-25 14:58 | disposition home or self-care (01) ==
PROVIDERS: Emergency Provider Emergency Medicine; PCP Physician Assistant
DX: R04.0 Epistaxis (principal); I48.0 Paroxysmal atrial fibrillation; E78.5 Hyperlipidemia, unspecified; I10 Essential (primary) hypertension; F41.8 Other specified anxiety disorders; E03.9 Hypothyroidism, unspecified
CPT/HCPCS: 30901; 99281

== ENCOUNTER → 2021-07-29 09:52 | Outpatient (CLI) | payer MEDICARE, SELFPAY ==
--- NOTE | 2021-07-29 09:59 | XR_ITS ---
PROCEDURE: XR CHEST 2V CLINICAL HISTORY: HX OF HIGH BLOOD PRESSURE, PREOPERATIVE COMPARISON: CR CXREM CHEST - EMPLOYEE from 08/01/2014 CR CXR CHEST(2 VIEWS-NOT PORTABLE) from 10/23/2015 CR XR CHEST AP from 10/04/[address] HEAD/BRAIN WO CON from 03/16/2020 FINDINGS: The cardiomediastinal silhouette and pulmonary vascularity are within normal limits. Small hiatal hernia. The lungs are clear without infiltrates, suspicious nodules, or pleural effusions. Minimal atelectatic or fibrotic change in the left lung base in the retrocardiac region. Kyphosis is present in the lower thoracic spine with multilevel degenerative changes and minimal wedging of the lower thoracic vertebra not significantly changed. There is mild midthoracic scoliosis convex right IMPRESSION: No acute findings. Dictated by: Moose Garvey MD 07/29/2021 12:44 Moose Garvey MD in [place] 07/29/2021 12:44
--- NOTE | 2021-07-29 10:28 | ECG_ITS ---
APPROVED REPORT Exam: Resting ECG HR:61 bpm ECG Measurements Heart Rate 61 AXES AL 180 P 21 QRSd 96 QRS -53 QT 416 T 33 QTc 418 Conclusion Normal sinus rhythm Incomplete right bundle branch block Left anterior fascicular block Abnormal ECG Electronically signed by : Lars Larios MD 07/29/2021 21:08:20
== END ==
PROVIDERS: PCP Physician Assistant; Visit Provider Physician Assistant
DX: Z01.810 Encounter for preprocedural cardiovascular examination (principal)
CPT/HCPCS: 71046; 93005

== ENCOUNTER → 2021-08-01 08:50 | Outpatient (CLI) | payer MEDICARE, SELFPAY ==
[2021-08-01 10:42] LABS: Alanine Aminotransferase 11 U/L (12-78); Albumin Level 3.8 g/dl (3.5-5.0); Alkaline Phosphatase 89 U/L (38-126); Aspartate Amino Transferase 23 U/L (14-36); Bilirubin,Direct 0.1 mg/dl (0.0-0.4); Bilirubin,Indirect 0.5 mg/dL (0.0-0.9); Bilirubin,Total 0.6 mg/dl (0.2-1.3); Bilirubin,Unconjugated 0.4 mg/dL (0.0-1.1); Chol/HDL Ratio 2.4 (1-3.5); Cholesterol 194 mg/dl (140-200); HDL Cholesterol 80 mg/dl (40-60); Total Protein,Serum 6.5 g/dl (6.3-8.2); Triglycerides 86 mg/dl (30-150); VLDL Cholesterol 17 mg/dL (0-40)
[2021-08-01 10:53] LABS: Direct LDL Cholesterol 85.32 mg/dL (100-129)
== END ==
PROVIDERS: Visit Provider Internal Medicine Interventional Cardiology
DX: E78.00 Pure hypercholesterolemia, unspecified (principal)
CPT/HCPCS: 36415; 80061; 80076

== ENCOUNTER → 2021-08-07 13:32 | Outpatient (CLI) | payer MEDICARE, SELFPAY ==
[2021-08-07 13:38] LABS: Microscopic, Urine URINE MICROSCOPIC (MICROSCOPIC)
[2021-08-07 14:16] LABS: Activated Partial Thrombo Time 31.2 seconds (22.8-30.6); INR 1.02 (0.9-1.1); Prothrombin Time 11.5 seconds (10.1-12.5)
[2021-08-07 14:43] LABS: Appearance,Urine CLEAR (Clear); Bilirubin,Urine Negative (Negative); Blood, Urine Negative (Negative); Color,Urine DK YELLOW (Yellow); Glucose,Urine (UA) Negative (Negative); Ketones,Urine TRACE (Negative); Leukocyte Esterase,Urine 1+ (Negative); Nitrate,Urine Negative (Negative); Protein,Urine TRACE (Negative); Specific Gravity, Urine 1.025 (1.005-1.030); Urobilinogen,Urine 0.2 EU/dl (0.2)
[2021-08-07 15:11] LABS: Bacteria,Urine 3+ /lpf; Mucus,Urine 4+ /lpf
[2021-08-07 17:27] LABS: Basophils % 0.7 % (0.1-2.0); Eosinophils # 0.1 K/mm3 (0.0-0.4); Eosinophils % 1.5 % (0.1-12.0); Hematocrit 39.8 % (37.0-47.0); Hemoglobin 12.9 g/dL (12.2-16.2); Lymphocytes % 20.2 % (10-50); Mean Corpuscular HGB Conc 32.4 g/dL (31.8-35.4); Mean Corpuscular Hemoglobin 29.3 pg (27.0-31.2); Mean Corpuscular Volume 90.7 fl (81-99); Mean Platelet Volume 8.4 fl (7.4-10.4); Monocytes # 0.3 K/mm3 (0.1-1.0); Monocytes % 5.2 % (1.7-9.3); Neutrophils # 3.6 K/mm3 (1.8-7.8); Neutrophils % 72.3 % (37.0-80.0); Platelet Count 226 K/mm3 (142-424); Red Blood Count 4.39 M/mm3 (4.20-5.40); Red Cell Distribution Width 14.1 % (11.5-17.5); White Blood Count 4.9 K/mm3 (4.8-10.8)
== END ==
PROVIDERS: Visit Provider Physician Assistant
DX: Z01.818 Encounter for other preprocedural examination (principal); R79.1 Abnormal coagulation profile; N39.0 Urinary tract infection, site not specified
CPT/HCPCS: 36415; 81001; 85025; 85610; 85730; 87086

== ENCOUNTER 2021-09-07 10:13 | Emergency (ER) | payer MEDICARE, SELFPAY ==
[2021-09-07 11:20] VITALS: BP 148/86; PULSE 61; RESP 19; TEMP 36.8; O2SAT 98; BMI 23.9
--- NOTE | 2021-09-07 11:55 | HMH.EDUTC ---
[facility] Disposition <Sofi Dent - Last Filed: 09/07/21 15:58> Condition on Discharge: Good Time of Disposition: 12:06 <Ailyn Oneal E - Last Filed: 09/07/21 21:33> Clinical Impression: Nailbed injury Disposition: Home, Self-Care Prescriptions: Amoxicillin/Potassium Clav [Augmentin 875-125 Tablet] 1 tab PO Q12H #20 tab Transmission Status: Received by [id number] Referrals: Charlotte Batista MD [Primary Care Provider] - Barrie Light MD [Staff Physician] - Medical Decision Making - Seth Inquiry Pt receiving controlled substance: No Seth was queried for this patient: No <Ailyn Oneal E - Last Filed: 09/07/21 21:33> Vital Signs: 09/07/21 11:20 09/07/21 12:08 09/07/21 14:17 Temperature 98.3 F 98.6 F 98 F Temperature Source Oral Oral Oral Pulse Rate 78 Pulse Rate [Right Brachial] 61 78 Respiratory Rate 19 16 18 Blood Pressure 115/78 Blood Pressure [Right Arm] 148/86 H 125/78 Blood Pressure Mean [Right Arm] 106 93 Blood Pressure Source [Right Arm] Automatic Cuff Blood Pressure Position Sitting Blood Pressure Position [Right Arm] Sitting Sitting 02 Sat by Pulse Oximetry 98 98 Oxygen Delivery Method Room Air Room Air Room Air Orders (Tests/Meds): ED MEDICATIONS Discontinued Medications Generic Name Dose Route Start Last Admin Trade Name Freq PRN Reason Stop Dose Admin Amoxicillin/Clavulanate Potassium 1 each 09/07/21 13:26 09/07/21 13:35 Amoxicillin/Pot Clavulan 500mg Tablet PO 09/07/21 13:27 1 each ONCE ONE Administration Medical Decision Narrative: Due to injury involving nailbed and patient reporting tip of finger feeling numb patient to be transferred to the ED for further evaluation and treatment Patient agreed with transfer Patient reports last tetanus has been within last couple of years Called ED spoke with staff and patient was moved to room 7 ([id number]) [facility] HPI <Sofi Dent - Last Filed: 09/07/21 15:58> - General Mode of Arrival: Ambulatory Source of Information: Patient Limitations: No Limitations Description of Symptoms (Recalled from Triage Doc. by RN): PATIENT C/O DOG BITE TO RIGHT HAND AND INDEX FINGER/NAILBED THAT HAPPENED LAST NIGHT HEENT Symptoms (Recalled from RN notes): No Resp Symptoms (Recalled from RN notes): No Skin Symptoms (Recalled from RN notes): Yes MS Symptoms (Recalled from RN notes): Yes Functional Status (Recalled from RN notes): WNL - History of Present Illness Provider Complaint: Patient states that last night her dog a francis gonzales bit her in her right index finger States that the dogs tooth went through her nail and out the other side of her finger States that it ripped her nail out and she has been having swelling and bruising ever since and states that her finger tip feels numb and she cant feel it States that this morning it was still the same so she came in to get it checked Denies any other injury - Worker's Comp Is this a Worker's Comp case?: No <OnealAilyn charles E - Last Filed: 09/07/21 21:33> - General Stated complaint: dog bite Time Seen by Provider: 09/07/21 11:57 - Related Data Home Medications Medication Instructions Recorded Confirmed cyanocobalamin (vitamin B-12) 1,000 mcg PO DAILY 06/16/20 05/14/21 1,000 mcg capsule sotalol 80 mg tablet 80 mg PO BID PRN 90 Days #180 tab 06/16/20 05/14/21 levothyroxine 25 mcg tablet 25 mcg PO DAILY 90 Days #90 tab 08/07/20 05/14/21 meloxicam 15 mg tablet 15 mg PO DAILY 90 Days #90 tab 08/07/20 05/14/21 venlafaxine 150 mg 150 mg PO DAILY 90 Days #90 cap 08/07/20 05/14/21 capsule,extended release 24 hr valsartan 320 1 tab PO DAILY 08/22/20 05/14/21 mg-hydrochlorothiazide 12.5 mg tablet atorvastatin 10 mg tablet 10 mg PO HS 90 Days #90 tab 11/13/20 05/14/21 rivaroxaban 20 mg tablet 20 mg PO HS 90 Days #90 tab 11/13/20 05/14/21 Clobetasol Propionate [Temovate 1 applic TOPICAL BID 01/06/21 05/14/21 0.05% cream 15gm tube] acetaminophen
--- NOTE | 2021-09-07 12:04 | PC.NURSE ---
PATIENT SENT TO ER PER Hilda FLORES APRN FOR FURTHER EVALUATION. REPORT GIVEN TO Zachary HELTON RN
[2021-09-07 12:08] VITALS: BP 125/78; PULSE 78; RESP 16; TEMP 37; O2SAT 98; BMI 23.9
--- NOTE | 2021-09-07 13:05 | XR_ITS ---
PROCEDURE: XR FINGER RT MIN 2V CLINICAL INDICATION: dog bite COMPARISON: CR XR HAND LT MIN 3V from 10/04/2019 FINDINGS: No fracture or dislocation. No lytic or blastic change. There is normal mineralization. Mild osteoarthritic changes. Small extra-articular calcifications along the ulnar aspect of the PIP and DIP of the 2nd digit. Other findings:None. IMPRESSION: No acute findings. Dictated by: Moose Garvey MD 09/07/2021 13:59 Moose Garvey MD in [place] 09/07/2021 13:59
--- NOTE | 2021-09-07 13:39 | HMH.EDGENADL ---
ED Disposition Clinical Impression: Nailbed injury Disposition: Home, Self-Care Condition on Discharge: Good Prescriptions: Amoxicillin/Potassium Clav [Augmentin 875-125 Tablet] 1 tab PO Q12H #20 tab Transmission Status: Received by [id number] Referrals: Charlotte Batista MD [Primary Care Provider] - Barrie Light MD [Staff Physician] - - Critical Care Critical Care Time: No Attestation: On 09/07/21, the high probability of a clinically significant, sudden or life threatening deterioration of the following system(s) required my full and direct attention, intervention and personal management. The time I documented below is in addition to time spent performing reported procedures but includes the following listed in this critical care notation. Medical Decision Making - Medical Records Medical records reviewed: Yes: I reviewed the patient's medical records. - Seth Inquiry Pt receiving controlled substance: No Vital Signs: 09/07/21 11:20 09/07/21 12:08 Temperature 98.3 F 98.6 F Temperature Source Oral Oral Pulse Rate [Right Brachial] 61 78 Respiratory Rate 19 16 Blood Pressure [Right Arm] 148/86 H 125/78 Blood Pressure Mean [Right Arm] 106 93 Blood Pressure Source [Right Arm] Automatic Cuff Blood Pressure Position [Right Arm] Sitting Sitting 02 Sat by Pulse Oximetry 98 98 Oxygen Delivery Method Room Air Room Air Orders (Tests/Meds): ED MEDICATIONS Discontinued Medications Generic Name Dose Route Start Last Admin Trade Name Freq PRN Reason Stop Dose Admin Amoxicillin/Clavulanate Potassium 1 each 09/07/21 13:26 09/07/21 13:35 Amoxicillin/Pot Clavulan 500mg Tablet PO 09/07/21 13:27 1 each ONCE ONE Administration General Adult HPI - General Chief complaint: Animal Bite Stated complaint: dog bite Time Seen by Provider: 09/07/21 11:57 Mode of Arrival: Ambulatory Source of Information: Patient Limitations: No Limitations Description of Symptoms (Recalled from ER Triage Doc. by RN): PATIENT C/O DOG BITE TO RIGHT HAND AND INDEX FINGER/NAILBED THAT HAPPENED LAST NIGHT - History of Present Illness HPI narrative: Patient is a 75-year-old female presenting to the emergency department with plaint of dog bite. Patient states that her little dog began to fight with a larger dog she tried to break it up and she got her index finger of her right hand bitten. She states this happened last night she had a difficult time stopping the bleeding but then came to the emergency department because she was worried about her nail. She states that her dog is up-to-date on rabies vaccination, she has had tdap and she has full sensation distally in the finger. She is denying numbness, tingling. Is any other medical problems, fever, chills, shortness of breath, back pain besides her chronic pain. - Related Data Home Medications Medication Instructions Recorded Confirmed cyanocobalamin (vitamin B-12) 1,000 mcg PO DAILY 06/16/20 05/14/21 1,000 mcg capsule sotalol 80 mg tablet 80 mg PO BID PRN 90 Days #180 tab 06/16/20 05/14/21 levothyroxine 25 mcg tablet 25 mcg PO DAILY 90 Days #90 tab 08/07/20 05/14/21 meloxicam 15 mg tablet 15 mg PO DAILY 90 Days #90 tab 08/07/20 05/14/21 venlafaxine 150 mg 150 mg PO DAILY 90 Days #90 cap 08/07/20 05/14/21 capsule,extended release 24 hr valsartan 320 1 tab PO DAILY 08/22/20 05/14/21 mg-hydrochlorothiazide 12.5 mg tablet atorvastatin 10 mg tablet 10 mg PO HS 90 Days #90 tab 11/13/20 05/14/21 rivaroxaban 20 mg tablet 20 mg PO HS 90 Days #90 tab 11/13/20 05/14/21 Clobetasol Propionate [Temovate 1 applic TOPICAL BID 01/06/21 05/14/21 0.05% cream 15gm tube] acetaminophen 500 mg tablet 500 mg PO Q6H PRN 05/14/21 05/14/21 Previous Rx's Medication Instructions Recorded cetirizine 10 mg capsule 10 mg PO DAILY #90 cap 11/13/20 donepezil 10 mg tablet 10 mg PO DAILY #30 tab 05/14/21 memantine 10 mg tablet 10 mg PO BID #60 tab 04/30
--- NOTE | 2021-09-07 14:16 | PC.NURSE ---
adaptic dressing applied to rt index finger. bumper splint applied
[2021-09-07 14:17] VITALS: BP 115/78; PULSE 78; RESP 18; TEMP 36.6; O2SAT 98
== END 2021-09-07 14:19 | disposition home or self-care (01) ==
LOC: UTC 12:07 → ER 12:07
PROVIDERS: Emergency Provider Emergency Medicine; PCP Family Medicine
DX: S61.350A Open bite of right index finger with damage to nail, initial encounter (principal); W54.0XXA Bitten by dog, initial encounter; Y92.017 Garden or yard in single-family (private) house as the place of occurrence of the external cause; F41.8 Other specified anxiety disorders; I10 Essential (primary) hypertension; E78.5 Hyperlipidemia, unspecified; E03.9 Hypothyroidism, unspecified
CPT/HCPCS: 11730; 11740; 11760; 73140; 99283

== ENCOUNTER → 2021-09-14 09:23 | Outpatient (CLI) | payer MEDICARE, SELFPAY | PROVIDERS: PCP Physician Assistant; Visit Provider Nurse Practitioner | DX: Z20.822 Contact with and (suspected) exposure to COVID-19 (principal) | CPT/HCPCS: C9803; U0003; U0005 ==

== ENCOUNTER → 2021-12-28 11:36 | Outpatient (CLI) | payer MEDICARE, SELFPAY ==
[2021-12-28 12:27] LABS: Basophils % 0.8 % (0.1-2.0); Eosinophils # 0.1 K/mm3 (0.0-0.4); Eosinophils % 2.3 % (0.1-12.0); Hematocrit 37.4 % (37.0-47.0); Hemoglobin 12.3 g/dL (12.2-16.2); Lymphocytes # 1.1 K/mm3 (0.7-4.5); Lymphocytes % 23.1 % (10-50); Mean Corpuscular Hemoglobin 28.7 pg (27.0-31.2); Mean Corpuscular Volume 86.8 fl (81-99); Mean Platelet Volume 8.8 fl (7.4-10.4); Monocytes # 0.3 K/mm3 (0.1-1.0); Monocytes % 6.5 % (1.7-9.3); Neutrophils # 3.1 K/mm3 (1.8-7.8); Neutrophils % 67.3 % (37.0-80.0); Platelet Count 154 K/mm3 (142-424); Red Blood Count 4.31 M/mm3 (4.20-5.40); Red Cell Distribution Width 14.3 % (11.5-17.5); White Blood Count 4.6 K/mm3 (4.8-10.8)
[2021-12-28 13:20] LABS: Iron 58 ug/dL (37-170)
[2021-12-28 13:30] LABS: Total Iron Binding Capacity 317 ug/dL (265-497)
[2021-12-28 13:57] LABS: Ferritin 18.8 ng/ml (11.1-264)
== END ==
PROVIDERS: Visit Provider Internal Medicine Medical Oncology
DX: E61.1 Iron deficiency (principal)
CPT/HCPCS: 36415; 82728; 83540; 83550; 85025

== ENCOUNTER 2022-03-23 15:49 | Emergency (ER) | payer MEDICARE, SELFPAY ==
[2022-03-23 15:50] VITALS: BP 134/70; PULSE 70; RESP 18; TEMP 36.8; O2SAT 98; BMI 24.5
[2022-03-23 15:54] VITALS: BMI 24.5
--- NOTE | 2022-03-23 15:54 | XR_ITS ---
FINAL REPORT CLINICAL HISTORY: dog bite FINDINGS: AP, oblique and lateral views of the right 5th finger were obtained. There is a fracture involving the distal phalanx of the right 5th finger. There is displacement and angulation of the distal fragment. Soft tissue defect and soft tissue air are present. No convincing foreign body is identified. IMPRESSION: Fracture of the distal phalanx of the right 5th finger. Reviewed, Interpreted and Dictated by Pari Monteiro MD Transcribed by Urvashi Cross Authenticated by Pari Monteiro MD on 03/23/2022 04:35:01 PM [facility]
--- NOTE | 2022-03-23 15:58 | HMH.EDEXTP ---
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, initial encounter Disposition: Home, Self-Care Condition on Discharge: Good Instructions: DI for Laceration Repair -- Complex Suture, DI for Animal Bites Additional Instructions: follow up [facility] plastic hand surgery on Tuesday, return here for worse Prescriptions: Amoxicillin [Amoxicillin 875MG Tab] 875 mg PO Q12H #20 tab Transmission Status: Pending to [id number] Referrals: Luh Sesay PA [Primary Care Provider] - - Critical Care Critical Care Time: No Attestation: On , the high probability of a clinically significant, sudden or life threatening deterioration of the following system(s) required my full and direct attention, intervention and personal management. The time I documented below is in addition to time spent performing reported procedures but includes the following listed in this critical care notation. Medical Decision Making - Medical Records Medical records reviewed: Yes: I reviewed the patient's medical records. - Seth Inquiry Pt receiving controlled substance: No Vital Signs: 03/23/22 15:50 03/23/22 16:53 Temperature 98.3 F Temperature Source Oral Pulse Rate 72 Pulse Rate [Left Radial] 70 Respiratory Rate 18 16 Blood Pressure 143/77 H Blood Pressure [Left Arm] 134/70 Blood Pressure Mean [Left Arm] 91 Blood Pressure Source [Left Arm] Automatic Cuff Blood Pressure Position [Left Arm] Sitting 02 Sat by Pulse Oximetry 98 92 L Oxygen Delivery Method Room Air Room Air Orders (Tests/Meds): ED MEDICATIONS Discontinued Medications Generic Name Dose Route Start Last Admin Trade Name Freq PRN Reason Stop Dose Admin Ceftriaxone Sodium 1 gm 03/23/22 16:42 03/23/22 17:05 Ceftriaxone 1gm Vial IM 03/23/22 16:43 1 gm ONCE ONE Administration Lidocaine HCl 10 ml 03/23/22 15:57 03/23/22 16:26 Lidocaine 2% 20ml Vial SQ 03/23/22 15:58 10 ml ONCE ONE Administration Lidocaine HCl 0 ml 03/23/22 16:42 03/23/22 17:05 Lidocaine 1% 5ml Pf Vial IM 03/23/22 16:43 2.1 ml ONCE ONE Administration - Physician Consults Physician Consulted: plastics/hand [facility] Comment/Response: discussed with plastic/hand at dog bite partial amp. 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 Consistency: constant Location: right, upper extremity Quality: sharp Radiation: none Relieving factors: immobilization Exacerbating factors: range of motion Associated symptoms: other (nubness) - Related Data Home Medications Medication Instructions Recorded Confirmed cyanocobalamin (vitamin B-12) 1,000 mcg PO DAILY 06/16/20 12/28/21 1,000 mcg capsule sotalol 80 mg tablet 80 mg PO BID PRN 90 Days #180 tab 06/16/20 12/28/21 levothyroxine 25 mcg tablet 25 mcg PO DAILY 90 Days #90 tab 08/07/20 12/28/21 meloxicam 15 mg tablet 15 mg PO DAILY 90 Days #90 tab 08/07/20 12/28/21 venlafaxine 150 mg 150 mg PO DAILY 90 Days #90 cap 08/07/20 12/28/21 capsule,extended release 24 hr valsartan 320 1 tab PO DAILY 08/22/20 12/28/21 mg-hydrochlorothiazide 12.5 mg tablet atorvastatin 10 mg tablet 10 mg PO HS 90 Days #90 tab 11/13/20 12/28/21 rivaroxaban 20 mg tablet 20 mg PO HS 90 Days #90 tab 11/13/20 12/28/21 Clobetasol Propionate [Temovate 1 applic TOPICAL BID 01/06/21 12/28/21 0.05% cream 15gm tube] acetaminophen 500 mg tablet 500 mg PO Q6H PRN 05/14/21 12/28/21 Previous Rx's Medication Instructions Recorded cetirizine 10 mg capsule 10 mg PO DAILY #9
--- NOTE | 2022-03-23 15:58 | PC.NURSE ---
rad at BS
--- NOTE | 2022-03-23 16:06 | PC.NURSE ---
waiting inserter promotional item back from [facility]
--- NOTE | 2022-03-23 16:14 | PC.NURSE ---
pt R hand/pinky finger soaking in hibiclens and saline will continue to monitor
--- NOTE | 2022-03-23 16:51 | PC.NURSE ---
Dr Gilmore talking to [facility] about transfer of patient and having images shared.
[2022-03-23 16:53] VITALS: BP 143/77; PULSE 72; RESP 16; O2SAT 92
--- NOTE | 2022-03-23 16:53 | PC.NURSE ---
contacted radiology to request that they power share pts images to [facility], spoke with alexis
--- NOTE | 2022-03-23 17:11 | PC.NURSE ---
SASKIA FIGUEREDO at
[2022-03-23 17:40] VITALS: BP 160/87; PULSE 66; RESP 16; TEMP 37; O2SAT 99
== END 2022-03-23 17:41 | disposition home or self-care (01) ==
PROVIDERS: Emergency Provider Emergency Medicine; PCP Physician Assistant
DX: S68.626A Partial traumatic transphalangeal amputation of right little finger, initial encounter (principal)
CPT/HCPCS: 11730; 12001; 73140; 96372; 99284; J0696

== ENCOUNTER 2022-05-08 09:30 | Emergency (ER) | payer MEDICARE, SELFPAY ==
[2022-05-08 10:25] VITALS: BP 0/0; PULSE 0; RESP 0; TEMP -17.7; TEMP 0
== END 2022-05-08 10:28 | disposition left against medical advice (07) ==
LOC: UTC 09:33
PROVIDERS: Emergency Provider Physician Assistant; PCP Physician Assistant
DX: R51.9 Headache, unspecified (principal); R07.0 Pain in throat; M79.10 Myalgia, unspecified site; R09.81 Nasal congestion

== ENCOUNTER → 2022-11-24 10:29 | Outpatient (CLI) | payer MEDICARE, SELFPAY ==
--- NOTE | 2022-11-24 10:32 | CT_ITS ---
FINAL REPORT TECHNIQUE: CT exam of the abdomen and pelvis with oral contrast only. This study was performed with techniques to keep radiation doses as low as reasonably achievable (ALARA). Individualized dose reduction techniques using automated exposure control or adjustment of mA and/or kV according to the patient''s size were employed. CLINICAL HISTORY: DIVERTICULITIS oral contrast only COMPARISON: None FINDINGS: Abdomen: Lung bases are clear. Liver, spleen, pancreas, kidneys, and adrenal glands have a normal CT appearance in their limited unenhanced state. There is pneumobilia without biliary ductal dilatation. Status post cholecystectomy. The bowel is unremarkable. Pelvis: The appendix is normal. There is severe diverticular disease of the sigmoid colon without active diverticulitis. No abscess or obstruction. Status post hysterectomy. Bladder is unremarkable. IMPRESSION: Advanced diverticular disease of the sigmoid colon without diverticulitis or abscess. Pneumobilia without biliary ductal dilatation. Reviewed, Interpreted and Dictated by Charlotte Garcia MD Transcribed by Azucena Maradiaga Authenticated and [facility]
== END ==
PROVIDERS: PCP Family Medicine; Visit Provider Family Medicine
DX: K57.92 Diverticulitis of intestine, part unspecified, without perforation or abscess without bleeding (principal)
CPT/HCPCS: 74176

== ENCOUNTER → 2022-12-08 12:37 | Outpatient (CLI) | payer MEDICARE, SELFPAY ==
[2022-12-08 13:27] LABS: Basophils % 0.8 % (0.1-2.0); Eosinophils # 0.1 K/mm3 (0.0-0.4); Eosinophils % 3.1 % (0.1-12.0); Hematocrit 40.3 % (37.0-47.0); Hemoglobin 13.3 g/dL (12.2-16.2); Lymphocytes # 1.5 K/mm3 (0.7-4.5); Mean Corpuscular HGB Conc 32.9 g/dL (31.8-35.4); Mean Corpuscular Hemoglobin 29.1 pg (27.0-31.2); Mean Corpuscular Volume 88.4 fl (81-99); Mean Platelet Volume 7.7 fl (7.4-10.4); Monocytes # 0.3 K/mm3 (0.1-1.0); Neutrophils # 2.6 K/mm3 (1.8-7.8); Neutrophils % 58.1 % (37.0-80.0); Platelet Count 174 K/mm3 (142-424); Red Blood Count 4.56 M/mm3 (4.20-5.40); Red Cell Distribution Width 13.7 % (11.5-17.5); White Blood Count 4.6 K/mm3 (4.8-10.8)
[2022-12-08 13:46] LABS: Alanine Aminotransferase 15 U/L (12-78); Albumin Level 4.1 g/dl (3.5-5.0); Albumin/Globulin Ratio 1.5 (1.1-1.8); Alkaline Phosphatase 101 U/L (38-126); Anion Gap 9.1 mEq/L (5-15); Aspartate Amino Transferase 27 U/L (14-36); Bilirubin,Total 0.9 mg/dl (0.2-1.3); Blood Urea Nitrogen 14 mg/dl (7-17); Carbon Dioxide 28 mmol/L (22.0-30.0); Chloride 107 mmol/L (98-107); Estimated Glomerular Filt Rate 61 ml/min (>60); GFR (African American) 73 ML/MIN (>60); Globulin 2.7 g/dL (1.3-3.2); Glucose 94 mg/dl (74-100); Potassium 4.1 mmoL/L (3.5-5.1); Sodium 140 mmol/L (136-145); Total Protein,Serum 6.8 g/dl (6.3-8.2)
== END ==
PROVIDERS: PCP Family Medicine; Visit Provider Specialist
DX: K92.1 Melena (principal); Z91.81 History of falling
CPT/HCPCS: 36415; 80053; 85025

== ENCOUNTER → 2022-12-13 09:46 | Outpatient (CLI) | payer MEDICARE, SELFPAY | PROVIDERS: PCP Family Medicine; Visit Provider Nurse Practitioner Family | DX: I48.0 Paroxysmal atrial fibrillation (principal); R00.2 Palpitations; R06.02 Shortness of breath; R07.9 Chest pain, unspecified | CPT/HCPCS: 93270 ==

== ENCOUNTER 2022-12-22 12:24 | Day surgery (SDC) | payer MEDICARE, SELFPAY ==
[2022-12-06 11:43] VITALS: BMI 24.0
[2022-12-22] VITALS (8 sets, daily range): BP systolic 92–129; BP diastolic 52–82; PULSE 75–89; RESP 14–18; TEMP 36.2–36.9; O2SAT 95–99
--- NOTE | 2022-12-22 13:07 | P.PN_ITS ---
[facility] Disclaimer: The information contained in this section may have been updated after the patient was seen, as this information can be updated by other users. Medical History Atrial fibrillation Chest pain Dementia History of anemia Hyperlipidemia Hypertension Hypothyroid Osteoarthritis Palpitations Schizophrenia Sinus bradycardia Skin cancer SOB (shortness of breath) on exertion Uterine cancer Surgical History History of cholecystectomy History of hysterectomy Hx of dilation and curettage Hx of melanoma excision Family History Other Family history of diabetes mellitus type II Family history of hypertension Family history of myocardial infarction Social History Smoking Status: Never smoker alcohol intake: never substance use type: denies use current occupational status: other Travel in the last 8 weeks: None household members: none housing: house lives independently: Yes marital status: education level: high school current occupational exposures/hazards: No caffeine: No in current or past relationships, have you been: made to feel afraid do you feel safe at home: Yes victim of physical abuse: No victim of emotional abuse: No victim of sexual abuse: No would you like helpful sources: No [facility] Anesthesia Checklist Patient Identification Patient Identification: Arm Band Structural Data Admitted From: Home Planned Operative Procedure/s: Colonoscopy Consent for Planned Operative Procedure(s) Verified: Yes NPO Status Verified Time NPO: 11:00 (Prep) Additional verifications Anesthesia Reactions: No Airway Assessment C-Spine Mobility Assessed: Yes TMJ Mobility Assessed: Yes Dentition: Poor Dentition Neurological Assessment Level of Consciousness: Awake Hx Seizures: No Numbness or tingling in extremities: No Anesthesia Plan Anesthesia Risk discussed: Yes Anesthesia Plan: Verified ASA Class: III Anesthesia Type: MAC
--- NOTE | 2022-12-22 13:45 | HMH.SCOPE ---
Procedure: Date: 12/22/22 Patient Date of :: 1945 Procedure Performed:: Colonoscopy Indications:: Blood in stools Performing Provider:: Cristóbal Quan MD Referring Provider:: Akhil Brown MD Sedation:: See RN records Procedure:: After placing the patient in the left lateral decubitus position, the colonoscopy was gently inserted into the rectum and under direct visualization advanced to the cecum which was identified by transillumination in the right lower quadrant, identification of the ileocecal valve, appendiceal orifice, and cecal strap. Color, texture, mucosa, and anatomy of the colon were carefully examined with the scope. Findings:: Anal canal: normal Rectum: internal hemorrhoids Sigmoid colon: Diverticulosis Descending colon: Diverticulosis Splenic flexure: normal Transverse colon: normal without polyps or inflammatory changes Hepatic flexure: normal Ascending colon: fair preparation Cecum: fair preparation Terminal ileum: not visualized Impression: Hemorrhoids Diverticulosis Recommendations:: Recommend fiber intake to ensure up to 25 gm of fiber daily Stool softeners as needed Hydrocortisone suppository x 10 days Complications:: None Estimated blood obtained (mL): 0
== END 2022-12-22 14:30 | disposition home or self-care (01) ==
PROVIDERS: PCP Family Medicine; Visit Provider Internal Medicine
PROC: 0DJD8ZZ Inspection of Lower Intestinal Tract, Via Natural or Artificial Opening Endoscopic (ICD-10-PCS; CPT 45378; principal; 2022-12-22 13:30)
DX: K92.1 Melena (principal); K57.30 Diverticulosis of large intestine without perforation or abscess without bleeding; K64.8 Other hemorrhoids; D64.9 Anemia, unspecified
CPT/HCPCS: 45378

== ENCOUNTER → 2022-12-23 07:18 | Outpatient (CLI) | payer MEDICARE, SELFPAY ==
--- NOTE | 2022-12-23 07:20 | CA_ITS ---
APPROVED REPORT EXAM: Comprehensive 2D, Doppler, and color-flow Echocardiogram Yarding Engineer: Lesly Santana CRT Ht: 5 ft 10 in Wt: 165lbs BSA: 1.92 BP: 175/88 mmHg Indications: Chest Pain, Dyspnea, Hyperlipidemia, Hypertension/HDD, dementia 2D Dimensions LVOT 1.95 cm (M/F) 1.5-2.5 LA Volume 47.80 mL LA Volume Index 24.30 mL/m2 (M/F) 16-34 M-Mode Dimensions RVDd 3.65 cm (0.9-2.6) LA Diam 4.18 cm (1.9-4.0) LVDd 3.94 cm (3.5-5.7) Ao Diam 3.90 cm (2.0-3.7) LVDs 1.82 cm (3.5-5.7) IVSd 1.93 cm (0.6-1.1) PWd 0.86 cm (0.6-1.1) EF (Teich) 85.20% FS 53.80% EDV (Teich) 67.50 mL TAPSE 2.83 (<1.7) ESV (Teich) 10.00 mL LV Diastology E Decel Time 197.00 (160-240 msec) E/A Ratio 0.63 MED E' 7.40 (< 7 cm/sec) MED A' 10.90 cm/s E'/MED E' Ratio 7.64 (>14) LAT E' 9.40 (<10 cm/sec) LAT A' 15.70 cm/s E/LAT E' Ratio 6.01 (>14) Aortic Valve AO Peak GR. 9.00 mmHg Mitral Valve MV E Max Phil. 57.00 (40-130 cm/s) MV A Velocity 90.00 (40-130 cm/s) E/A Ratio 0.63 MV Decel. Time 197.00 (160-240 ms) MV PHT 58.00 ms Pulmonary Valve PV Peak Velocity 191.00 (50-150 cm/s) Tricuspid Valve TR P. Velocity 290.00 cm/s RAP Estimate 10.00 mmHg RVSP 43.50 mmHg Left Ventricle Left atrium is mildly enlarged, left ventricle is normal size mild concentric left ventricular hypertrophy, estimated ejection fraction 55% with no regional wall motion abnormality, grade 1 diastolic dysfunction seen without tissue Doppler evidence of trace left atrial pressure. Right Ventricle Right atrium and right ventricular normal size and contractility. Aortic Valve Aortic valve is minimally thickened and fibrosed there is no aortic stenosis or aortic insufficiency. Mitral Valve Mitral valve is grossly normal, there is trace mitral regurgitation. Tricuspid Valve Tricuspid valve grossly normal, there is trace tricuspid regurgitation, tricuspid regurgitation jet velocity is inadequate for calculation of the right ventricular systolic pressure. Pulmonic Valve Pulmonic valve is poorly visualized. Great Vessels Aortic root is normal size. Inferior vena cava is normal size with normal inspiratory collapse. Pericardium No significant pericardial effusion noted. Conclusion 1. Biatrial enlargement, normal left ventricular size, mild concentric left ventricular hypertrophy, estimated ejection fraction 55% with no regional wall motion abnormality, grade 1 diastolic dysfunction seen without tissue Doppler evidence of raise left atrial pressure. 2. Mildly enlarged right ventricle with normal contractility. 3. Trace mitral and tricuspid regurgitation. Calculated right ventricular systolic pressure 35 mmHg. 4. No significant pericardial effusion noted. 5. Inferior vena cava is normal size with normal inspiratory collapse. Electronically signed by : Johnny Richard MD 12/24/2022 15:01:21
--- NOTE | 2022-12-23 07:24 | NM_ITS ---
APPROVED REPORT Exam: Nuclear Stress Test Indication: short of breath..fatigue Patient Location: Outpatient Stress Tech: Marleny España NM Tech:NEO Land RT(R)(N) Ht: 5 ft 10 in Wt: 160 lbs Bra Size: 42c HR: 69 bpm BP: 114/63 mmHg BSA: 1.90 m2 TID: 0.92 BMI: 22.9 History: short of breath..fatigue Procedure: Patient received 0.4 mg of intravenous Lexiscan, resting heart rate 69 bpm, resting blood pressure 114/63 mmHg, with Lexiscan maximum heart rate achieved was 93 bpm which is Less than 85 % of the maximum predicted heart rate and blood pressure was 123/70 mmHg. With Lexiscan, patient denied any complaint of chest pain. Electrocardiogram Resting electrocardiogram shows sinus rhythm, with Lexiscan there is less than 1.[address] segment depression noted from the baseline EKG. The EKG portion of the Lexiscan is nondiagnostic. Cardiac Stress and Resting SPECT Images: Cardiac Stress and Resting SPECT images were obtained using technetium 99m Myoview 31.0 mCi stress and 10.50 mCi at rest. Gated SPECT analysis of segmental wall motion and calculation of the ejection fraction also done. Prone images were also obtained. Cardiac stress and rest respectively show uniform myocardial activity without segmental perfusion abnormality, computer derived ejection fraction is over 65% with no regional wall motion abnormality, right ventricle is mildly enlarged with normal contractility. Conclusion: 1. The EKG portion of the Lexiscan is nondiagnostic. 2. No scintigraphic evidence of reversible ischemia seen, computer derived ejection fraction is over 65% with no regional wall motion abnormality, right ventricle is mildly enlarged with normal contractility. 3. Normal Lexiscan Myoview study. Electronically signed by : Johnny Richard MD 12/24/2022 13:03:05
--- NOTE | 2022-12-23 09:27 | CA_ITS ---
APPROVED REPORT Exam: Pharmacologic Technologist: Ashley España, Ht: 5 ft 10 in Wt: 165 lbs BSA: 1.92 m2 HR: 65 bpm BP: 114/63 mmHg Rhythm: nsr Medical History Medical History: HTN, Hyperlipidemia Medications: Levothyroxine,,,,, Trazadone,,,,, Sotalol,,,,, Atorvastatin,,,,, Tylenol,,,,, MeLOXICAM,,,,, ZYRTEC,,,,, Valsartan,,,,, DONEPEZIL,,,,, Vit B12,,,,, Venlafaxine,,,,, MeMANTINE,,,,, Allergies: diphenhydramine Cardiac Risk Factors: HTN, Hyperlipidemia Stress Test Details Test: LEXISCAN HR Resting HR: 69 bpm Max Heart Rate (APMHR): 143.014205 bpm Max HR Achieved: 93 bpm Target HR (85% APMHR): 121.906380 bpm % of APMHR: 65.04 Recovery HR: 76 bpm BP Resting BP: 114.0/63.0 mmHg Max BP: 123.0/70.0 mmHg Recovery BP: 124.0/72.0 mmHg ECG Resting ECG: nsr Clinical Reason for Termination: Completed Protocol Exercise duration: 04:01 min Highest Stage Achieved: Exercise capacity: 1.0 METs Stress ECG Conclusion DURING INFUSION PATIENT HAD NO SYMPTOMS. NO ARRHYTHMIAS/ECTOPY. <1.5MM ST SEGMENT CHANGES. NON-DIAGNOSTIC Test Summary REST . . . . . . . Sitting REST 13:46 . . 69 . 114/ 63 . . Stage 1 . . . . . . . Myoview Injected Stage 1 01:00 . . 71 . . . . Stage 2 01:00 . . 90 . 118/ 57 . . Stage 3 01:00 . . 84 . 99/ 57 . . Stage 4 01:00 . . 79 . 116/ 72 . . Stage 4 01:01 . . 79 . 116/ 72 . Stop exercise at 04:01 RECOVERY 01:00 . . 77 . . . . RECOVERY 02:00 . . 73 . 123/ 70 . . RECOVERY 03:00 . . 75 . 123/ 70 . . RECOVERY 04:00 . . 72 . 123/ 70 . . RECOVERY 04:08 . . 72 . 119/ 73 . . Electronically signed by : Johnny Richard MD 12/24/2022 13:00:40
== END ==
PROVIDERS: PCP Family Medicine; Visit Provider Nurse Practitioner Family
DX: I48.0 Paroxysmal atrial fibrillation (principal); R00.2 Palpitations; R06.02 Shortness of breath; R07.9 Chest pain, unspecified
CPT/HCPCS: 78452; 93017; 93306; A9502; J2785

== ENCOUNTER → 2023-03-01 14:04 | Outpatient (CLI) | payer MEDICARE, SELFPAY ==
--- NOTE | 2023-03-01 14:13 | XR_ITS ---
FINAL REPORT CLINICAL HISTORY: PAIN FINDINGS: Five views were obtained. There is no acute fracture. There is no malalignment. There are hypertrophic changes of degenerative disc disease at T11-T12, T12-L1, and L1-L2. There is vacuum disc phenomenon at L2-L3. There is moderate facet sclerosis in the lower lumbar spine. IMPRESSION: Multilevel degenerative disc disease. Reviewed, Interpreted and Dictated by Eddie Silverman MD Transcribed by Jose Alfredo Conde Authenticated and [facility]
== END ==
PROVIDERS: PCP Family Medicine; Visit Provider Family Medicine
DX: M54.50 Low back pain, unspecified (principal); W19.XXXA Unspecified fall, initial encounter
CPT/HCPCS: 72110

== ENCOUNTER 2023-11-22 15:13 | Emergency (ER) | payer MEDICARE, SELFPAY ==
[2023-11-22 15:22] VITALS: BP 125/77; PULSE 73; RESP 20; TEMP 36.8; O2SAT 98; BMI 22.9
--- NOTE | 2023-11-22 15:34 | XR_ITS ---
FINAL REPORT TECHNIQUE: AP and lateral views right forearm CLINICAL HISTORY: distal forearm bite - rule out teeth COMPARISON: None FINDINGS: RIGHT FOREARM: 2 views of the right forearm failed to reveal any evidence of fracture. No radiopaque foreign body is identified. No evidence of dislocation is present. IMPRESSION: No fracture or radiopaque foreign body. Reviewed, Interpreted and Dictated by Eddie Silverman MD Transcribed by Shawna Ochoa Authenticated and . [facility]
--- NOTE | 2023-11-22 15:52 | HMH.EDGENADL ---
Discharge Plan Disposition Patient Disposition: Home, Self-Care Prescriptions Prescriptions: New amoxicillin-pot clavulanate 875-125 mg tablet 1 tab PO BID 7 Days Qty: 14 0RF No Action Zyrtec 10 mg capsule 10 mg PO DAILY Qty: 90 3RF enoxaparin [Lovenox] 80 mg/0.8 mL syringe 75 mg SQ BID Qty: 8 0RF levothyroxine 25 mcg tablet 25 mcg PO DAILY 90 Days Qty: 90 meloxicam 15 mg tablet 15 mg PO DAILY 90 Days Qty: 90 venlafaxine 150 mg capsule,extended release 24hr 150 mg PO DAILY 90 Days Qty: 90 atorvastatin 10 mg tablet 10 mg PO HS 90 Days Qty: 90 rivaroxaban 20 mg tablet 20 mg PO HS 90 Days Qty: 90 valsartan-hydrochlorothiazide 320-12.5 mg tablet 1 tab PO DAILY acetaminophen [Tylenol Extra Strength] 500 mg tablet 500 mg PO Q6H PRN (Reason: Pain) memantine 10 mg tablet 10 mg PO BID Qty: 60 11RF donepezil 10 mg tablet 10 mg PO HS Qty: 30 11RF trazodone 50 mg tablet 50 mg PO HS Rx Instructions: Take 1 tablet at 8:30 pm prior to bedtime. sotalol 80 mg tablet 40 mg PO BID Referrals Follow up/Referrals: Akhil Brown MD [Primary Care Provider] - See instructions Activity Restrictions/Add. Instructions Additional Instructions/Restrictions: Be sure to monitor your diet closely over the next 2 to 4 weeks. If dog has mental status changes, seizures, increased aggression, confusion, or any other changes in mental status or behavior, call the interval department and return to the emergency department promptly for rabies vaccination. Call your family doctor to establish care for this visit to the emergency department and schedule follow-up within 48 hours to ensure improvement. If you have any worsening of your condition or any other concerning signs or symptoms, return to the emergency department or your primary care doctor for further evaluation. Augmentin twice daily for 7 days Clinical Impressions Clinical Impression: Dog bite of right arm Instructions Patient Instructions: DI for Laceration Repair Discharge ED Provider: John Warner General Adult HPI General Chief complaint: Wound/Laceration Stated complaint: AO01/24 Dog bite RT wrist Time Seen by Provider: 11/22/23 15:18 Mode of Arrival: Ambulatory Source of Information: Patient Limitations: No Limitations Description of Symptoms (Recalled from ER Triage Doc. by RN): Patient presents to ED with dog bite to the right wrist. Bite happened about 30 minutes ago. History of Present Illness HPI narrative: 78-year-old female with history of A-fib on Xarelto, hypertension, hyperlipidemia presenting with dog bite. Bit her on her right distal forearm laterally. Patient states that bite happened about 30 minutes ago. Last tetanus was in 2019. Patient is not up-to-date on rabies, but is a home dog and does not associate with other animals. Patient states that she is opting to monitor her dog over the next few weeks instead of receiving rabies vaccinations today. Related Data Home Medications Medication Instructions Recorded Confirmed levothyroxine 25 mcg tablet 25 mcg PO DAILY thyroid 90 days 08/07/20 06/22/23 #90 tabs meloxicam 15 mg tablet 15 mg PO DAILY Pain 90 days #90 08/07/20 06/22/23 tabs venlafaxine 150 mg 150 mg PO DAILY mood 90 days #90 08/07/20 06/22/23 capsule,extended release 24 hr caps valsartan 320 1 tab PO DAILY blood pressure 08/22/20 06/22/23 mg-hydrochlorothiazide 12.5 mg tablet atorvastatin 10 mg tablet 10 mg PO HS Cholesterol 90 days 11/13/20 06/22/23 #90 tabs rivaroxaban 20 mg tablet 20 mg PO HS Blood thinner 90 days 11/13/20 06/22/23 #90 tabs acetaminophen 500 mg tablet 500 mg PO Q6H PRN Pain 05/14/21 06/22/23 (Tylenol Extra Strength) sotalol 80 mg tablet 40 mg PO BID bp 12/22/22 06/22/23 trazodone 50 mg tablet 50 mg PO HS Pain 12/22/22 06/22/23 Previous Rx's Medication Instructions Recorded cetirizine 10 mg capsule (Zyrtec) 10 mg PO DAILY allergies #90 caps 11/13/20 donepezil 10 mg tablet 10 mg PO HS memory #30 tabs 12/08/22 memantine 10 mg tablet 10 mg PO BID memory #60 tabs 12/08/22 enoxaparin 80 mg/0.8 mL 75 mg (0.75 mL) SQ BID #8 mL 08/23/23 subcutaneous syringe (Lovenox) amoxicillin 875 mg-potassium 1 tab PO BID 7 days #14 tabs 11/22/23 clavulanate 125 mg tablet Allergies Allergy/AdvReac Type Severity Reaction Status Date / Time diphenhydramine Allergy Unknown HYPER Verified 06/22/23 09:08 [From BENADRYL] tuberculin, purified protein Allergy Unknown I-HIVES Verified 06/22/23 09:08 deriva [TUBERCULIN, PURIFIED PROTEIN DERIVA] [facility] Disclaimer: The information contained in this section may have been updated after the patient was seen, as this information can be updated by other users. Medical History Atrial fibrillation Chest pain Dementia History of anemia Hyperlipidemia Hypertension Hypothyroid Osteoarthritis Palpitations Schizophrenia Sinus bradycardia Skin cancer SOB (shortness of breath) on exertion Uterine cancer Surgical History History of cholecystectomy History of hysterectomy Hx of dilation and curettage Hx of melanoma excision nose right cheek Family History Other Family history of diabetes mellitus type II Family history of hypertension Family history of myocardial infarction Social History Smoking Status: Never smoker alcohol intake: never substance use type: denies use current occupational status: other Travel in the last 8 weeks: None household members: none housing: house lives independently: Yes marital status: education level: high school current occupational exposures/hazards: No caffeine: No in current or past relationships, have you been: made to feel afraid do you feel safe at home: Yes victim of physical abuse: No victim of emotional abuse: No victim of sexual abuse: No would you like helpful sources: No ROS Obtained: Yes All systems reviewed & no additional complaints except as documented Physical Exam General General appearance: alert and in no apparent distress Head Head exam: atraumatic and normocephalic Eye Eye exam: Present normal appearance, PERRL and EOMI ENT ENT exam: Present mucous membranes moist Neck Neck exam: Present normal inspection, full ROM and trachea midline Respiratory Respiratory exam: Absent respiratory distress, wheezes, stridor, accessory muscle use or prolonged expiratory phase Cardiovascular Cardiovascular exam: Present normal rhythm Abdominal Exam Abdominal exam: Present soft; Absent distention, tenderness, guarding, rebound or rigidity Extremities Exam Extremities exam: Present other (3 cm skin tear x 2 representing dog bite distal aspect of right radius. Crepitus proximally on dorsal aspect of arm. No obvious foreign body. Hemostatic. Neurovascularly intact with range of motion intact); Absent edema Neurological Exam Neurological exam: Present alert, oriented X3, CN II-XII intact and normal gait; Absent motor sensory deficit Skin Skin exam: Present warm and dry; Absent diaphoresis or erythema Medical Decision Making Medical Records Medical records reviewed: Yes I reviewed the patient's medical records. Seth Inquiry Pt receiving controlled substance: No Seth was queried for this patient: No Vital Signs: 11/22/23 15:22 Temperature 98.2 F Temperature Source Oral Pulse Rate [Left Radial] 73 Respiratory Rate 20 Blood Pressure [Left Arm] 125/77 Blood Pressure Mean [Left Arm] 93 Blood Pressure Source [Left Arm] Automatic Cuff Blood Pressure Position [Left Arm] Sitting 02 Sat by Pulse Oximetry 98 Oxygen Delivery Method Room Air Orders (Tests/Meds): ORDERS Category Date Time Status Forearm XR right 2 views [XR forearm RT 2V] Stat Exams 11/22/23 15:34 Taken Medical Decision Narrative: 78-year-old female with history of A-fib on Xarelto, hypertension, hyperlipidemia presenting with dog bite. Bit her on her right distal forearm laterally. Patient states that bite happened about 30 minutes ago. Last tetanus was in 2019. Patient is not up-to-date on rabies, but is a home dog and does not associate with other animals. Patient states that she is opting to monitor her dog over the next few weeks instead of receiving rabies vaccinations today. History was obtained via conversation with patient. On arrival, patient hemodynamically stable, alert, oriented x4, appropriate, GCS 15, moving all extremities spontaneously, pupils equal and reactive to light. Full physical exam performed and significant for dog bite right distal forearm. Small amount of crepitus proximally. Neurovascularly intact, functionally intact and hemostatic. Differential includes uncomplicated dog bite, foreign body, among others. Patient was given copious irrigation under tap water for symptomatic management and correction of underlying abnormalities. Workup independently interpreted and significant for no acute foreign body including teeth. See radiology read for full review of final results. On reevaluation, patient resting comfortably bed, wounds were dressed. Given patient presentation, workup, history, this most likely represents uncomplicated dog bite of known dog. Because patient at baseline without signs or symptoms of clinical decompensation, deemed appropriate for discharge. Results were relayed to patient who voiced understanding and were agreeable to outpatient management and follow up. At the time of discharge the patient was hemodynamically stable, tolerating PO, and mobilizing appropriately. Critical Care Critical Care Time Critical Care Time: No
--- NOTE | 2023-11-22 15:57 | PC.NURSE ---
pt washed the area with soap and water.
[2023-11-22 16:02] VITALS: BP 125/80; PULSE 80; RESP 20; TEMP 36.8; O2SAT 99
--- NOTE | 2023-11-22 16:04 | PC.NURSE ---
WOUND IRRIGATED AND XEROFORM GAUZE WITH DRESSING APPLIED
== END 2023-11-22 16:09 | disposition home or self-care (01) ==
PROVIDERS: Emergency Provider Emergency Medicine; PCP Family Medicine
DX: S61.551A Open bite of right wrist, initial encounter (principal); I48.91 Unspecified atrial fibrillation; I10 Essential (primary) hypertension; E03.9 Hypothyroidism, unspecified; E78.5 Hyperlipidemia, unspecified; Z79.01 Long term (current) use of anticoagulants; F03.90 Unspecified dementia, unspecified severity, without behavioral disturbance, psychotic disturbance, mood disturbance, and anxiety; W54.0XXA Bitten by dog, initial encounter
CPT/HCPCS: 73090; 99283

== ENCOUNTER 2023-12-10 17:58 | Emergency (ER) | payer MEDICARE, SELFPAY ==
[2023-12-10 17:59] VITALS: BP 151/95; PULSE 89; RESP 20; TEMP 36.7; O2SAT 97; BMI 22.9
--- NOTE | 2023-12-10 18:24 | PC.NURSE ---
Dr. Booker at [facility] for pt eval
--- NOTE | 2023-12-10 18:32 | ED_ITS ---
Discharge Plan Disposition Patient Disposition: Home, Self-Care Prescriptions Prescriptions: New ondansetron 4 mg tablet,disintegrating 4 mg PO Q8H PRN (Reason: nausea and vomiting) 4 Days Qty: 12 0RF No Action Zyrtec 10 mg capsule 10 mg PO DAILY Qty: 90 3RF enoxaparin [Lovenox] 80 mg/0.8 mL syringe 75 mg SQ BID Qty: 8 0RF levothyroxine 25 mcg tablet 25 mcg PO DAILY 90 Days Qty: 90 meloxicam 15 mg tablet 15 mg PO DAILY 90 Days Qty: 90 venlafaxine 150 mg capsule,extended release 24hr 150 mg PO DAILY 90 Days Qty: 90 atorvastatin 10 mg tablet 10 mg PO HS 90 Days Qty: 90 rivaroxaban 20 mg tablet 20 mg PO HS 90 Days Qty: 90 valsartan-hydrochlorothiazide 320-12.5 mg tablet 1 tab PO DAILY acetaminophen [Tylenol Extra Strength] 500 mg tablet 500 mg PO Q6H PRN (Reason: Pain) memantine 10 mg tablet 10 mg PO BID Qty: 60 11RF donepezil 10 mg tablet 10 mg PO HS Qty: 30 11RF trazodone 50 mg tablet 50 mg PO HS Rx Instructions: Take 1 tablet at 8:30 pm prior to bedtime. sotalol 80 mg tablet 40 mg PO BID amoxicillin-pot clavulanate 875-125 mg tablet 1 tab PO BID 7 Days Qty: 14 0RF Referrals Follow up/Referrals: Akhil Brown MD [Primary Care Provider] - See instructions Activity Restrictions/Add. Instructions Additional Instructions/Restrictions: At this time it was felt you are safe to be discharged home. If new or worsening symptoms please do not hesitate to return the emergency department. If symptoms persist please follow-up with your family doctor as you are able. Please take your medication as prescribed. Clinical Impressions Clinical Impression: Vomiting, Diarrhea Instructions Patient Instructions: DI for Diarrhea and Traveler's Diarrhea -- Adult, DI for Diarrhea and Traveler's Diarrhea -- Child, DI for Nausea -- Adult, DI for Nausea -- Child Discharge ED Provider: Arnav Booker General Adult HPI General Chief complaint: Nausea/Vomiting/Diarrhea Stated complaint: V/D, chills, GARCIA Time Seen by Provider: 12/10/23 18:14 Mode of Arrival: Ambulatory Source of Information: Patient and Relative Limitations: No Limitations Description of Symptoms (Recalled from ER Triage Doc. by RN): pt was here recently with sister that had stomach bug and now patient thinks she has it. she complains of n/v/d and headache that started last night History of Present Illness HPI narrative: Patient is a 78-year-old female with past medical history of hypertension, paroxysmal atrial fibrillation who presents emergency department for evaluation of vomiting and diarrhea. Onset was acute, over the last 24 hours. Patient has positive sick contacts at home with similar symptoms. Vomiting and diarrhea is nonbloody, she has a generalized headache. No reports of chest pain. No other acute complaints at this time. Related Data Home Medications Medication Instructions Recorded Confirmed levothyroxine 25 mcg tablet 25 mcg PO DAILY thyroid 90 days 08/07/20 06/22/23 #90 tabs meloxicam 15 mg tablet 15 mg PO DAILY Pain 90 days #90 08/07/20 06/22/23 tabs venlafaxine 150 mg 150 mg PO DAILY mood 90 days #90 08/07/20 06/22/23 capsule,extended release 24 hr caps valsartan 320 1 tab PO DAILY blood pressure 08/22/20 06/22/23 mg-hydrochlorothiazide 12.5 mg tablet atorvastatin 10 mg tablet 10 mg PO HS Cholesterol 90 days 11/13/20 06/22/23 #90 tabs rivaroxaban 20 mg tablet 20 mg PO HS Blood thinner 90 days 11/13/20 06/22/23 #90 tabs acetaminophen 500 mg tablet 500 mg PO Q6H PRN Pain 05/14/21 06/22/23 (Tylenol Extra Strength) sotalol 80 mg tablet 40 mg PO BID bp 12/22/22 06/22/23 trazodone 50 mg tablet 50 mg PO HS Pain 12/22/22 06/22/23 Previous Rx's Medication Instructions Recorded cetirizine 10 mg capsule (Zyrtec) 10 mg PO DAILY allergies #90 caps 11/13/20 donepezil 10 mg tablet 10 mg PO HS memory #30 tabs 12/08/22 memantine 10 mg tablet 10 mg PO BID memory #60 tabs 12/08/22 enoxaparin 80 mg/0.8 mL 75 mg (0.75 mL) SQ BID #8 mL 06/22/23 subcutaneous syringe (Lovenox) amoxicillin 875 mg-potassium 1 tab PO BID 7 days #14 tabs 11/22/23 clavulanate 125 mg tablet ondansetron 4 mg disintegrating 4 mg PO Q8H PRN nausea and 12/10/23 tablet vomiting 4 days #12 tabs Allergies Allergy/AdvReac Type Severity Reaction Status Date / Time diphenhydramine Allergy Unknown HYPER Verified 06/22/23 09:08 [From BENADRYL] tuberculin, purified protein Allergy Unknown I-HIVES Verified 06/22/23 09:08 deriva [TUBERCULIN, PURIFIED PROTEIN DERIVA] [facility] Disclaimer: The information contained in this section may have been updated after the patient was seen, as this information can be updated by other users. Medical History Atrial fibrillation Chest pain Dementia History of anemia Hyperlipidemia Hypertension Hypothyroid Osteoarthritis Palpitations Schizophrenia Sinus bradycardia Skin cancer SOB (shortness of breath) on exertion Uterine cancer Surgical History History of cholecystectomy History of hysterectomy Hx of dilation and curettage Hx of melanoma excision nose right cheek Family History Other Family history of diabetes mellitus type II Family history of hypertension Family history of myocardial infarction Social History Smoking Status: Never smoker alcohol intake: never substance use type: denies use current occupational status: other Travel in the last 8 weeks: None household members: none housing: house lives independently: Yes marital status: education level: high school current occupational exposures/hazards: No caffeine: No in current or past relationships, have you been: made to feel afraid do you feel safe at home: Yes victim of physical abuse: No victim of emotional abuse: No victim of sexual abuse: No would you like helpful sources: No ROS Obtained: Yes Systems reviewed as appropriate & no additional complaints except as documented Physical Exam General General appearance: alert and in no apparent distress Head Head exam: atraumatic and normocephalic Eye Eye exam: Present PERRL and EOMI ENT ENT exam: Present normal oropharynx and mucous membranes moist Neck Neck exam: Present normal inspection Chest Chest inspection: Present normal inspection and symmetric chest wall rise Respiratory Respiratory exam: Present normal lung sounds bilaterally; Absent respiratory distress Cardiovascular Cardiovascular exam: Present regular rate and normal rhythm Abdominal Exam Abdominal exam: Present soft and tenderness (Mild, diffuse, no focal tenderness); Absent guarding or rebound Extremities Exam Extremities exam: Present normal inspection Neurological Exam Neurological exam: Present alert and CN II-XII intact; Absent motor sensory deficit Psychiatric Psychiatric exam: Present normal affect Skin Skin exam: Present warm and dry Medical Decision Making Seth Inquiry Pt receiving controlled substance: No Vital Signs: 12/10/23 17:59 12/10/23 19:00 Temperature 98.0 F Temperature Source Oral Pulse Rate 72 Pulse Rate [Right Radial] 89 Respiratory Rate 20 Blood Pressure 134/77 Blood Pressure [Right Arm] 151/95 H Blood Pressure Mean [Right Arm] 113 02 Sat by Pulse Oximetry 97 96 Oxygen Delivery Method Room Air Room Air Lab Data Lab Results 12/10/23 18:34: WBC 7.3, RBC 4.87, Hgb 14.4, Hct 43.2, MCV 88.6, MCH 29.5, MCHC 33.3, RDW 13.9, Plt Count 154, MPV 8.0, Neut % (Auto) 89.9 H, Lymph % (Auto) 5.1 L, Coffee % (Auto) 3.2, Eos % (Auto) 1.7, Baso % (Auto) 0.2, Neut # (Auto) 6.6, Lymph # (Auto) 0.4 L, Coffee # (Auto) 0.2, Eos # (Auto) 0.1, Baso # (Auto) 0.0, Total Counted 100, Neutrophils % (Manual) 93 H, Lymphocytes % (Manual) 5 L, Monocytes % (Manual) 1 L, Eosinophils % (Manual) 1, Platelet Estimate Normal, RBC Morphology Normal, Sodium 139, Potassium 4.0, Chloride 110 H, Carbon Dioxide 22, Anion Gap 11.0, BUN 15, Creatinine 0.90, Estimated Creat Clear 53, Estimated GFR 61, Est GFR ( Amer) 73, Glucose 136 H, Calcium 9.0, Magnesium 2.0, Total Bilirubin 1.1, AST 30, ALT 21, Alkaline Phosphatase 102, Total Protein 6.9, Albumin 4.0, Globulin 2.9, Albumin/Globulin Ratio 1.4, Lipase 60 12/10/23 18:45: SARS-CoV-2 (PCR) Not detected, Influenza A Untype (PCR) Not detected, Influenza Type B (PCR) Not detected 12/10/23 19:20: Urine Color Yellow, Urine Appearance Clear, Urine pH 5.5, Ur Specific [place] >= 1.030, Urine Protein Negative, Urine Glucose (UA) Negative, Urine Ketones Negative, Urine Blood 1+, Urine Nitrate Negative, Urine Bilirubin 1+ A, Urine Urobilinogen 0.2, Ur Leukocyte Esterase Negative, Urine RBC 3-5, Urine WBC 5-10, Ur Squamous Epith Cells 5-10, Amorphous Sediment Trace, Urine Bacteria 1+, Urine Mucus 1+ 12/10/23 18:34 12/10/23 18:34 Orders (Tests/Meds): ED MEDICATIONS Discontinued Medications Generic Name Dose Route Start Last Admin Trade Name Freq PRN Reason Stop Dose Admin Acetaminophen 1,000 mg 12/10/23 18:30 12/10/23 18:42 Acetaminophen 500mg Tab PO 12/10/23 18:31 1,000 mg ONCE ONE Administration Lactated Ringer's 1,000 mls @ 999 mls/hr 12/10/23 18:30 12/10/23 18:42 Lactated Ringer's 1000 Ml Bag IV 12/10/23 19:30 999 mls/hr .Q1H1M ONE Administration Ondansetron HCl 4 mg 12/10/23 18:30 12/10/23 18:42 Ondansetron 4mg/2ml Vial IV 12/10/23 18:31 4 mg ONCE ONE Administration ORDERS Category Date Time Status CBC w/Auto Diff [Complete Blood Count Auto Diff] Stat Lab 12/10/23 18:34 Completed CMP [Comprehensive Metabolic Panel] Stat Lab 12/10/23 18:34 Completed Lipase Stat Lab 12/10/23 18:34 Completed MG [Magnesium] Stat Lab 12/10/23 18:34 Completed Rapid PCR Covid and Flu A/B Stat Lab 12/10/23 18:45 Completed UA [Urinalysis and Microscopic] Stat Lab 12/10/23 19:20 Completed Medical Decision Narrative: In summary patient is 78-year-old female past medical history described above who presents emergency department for evaluation of vomiting and diarrhea with sick contacts. Patient is hemodynamically stable nontoxic-appearing upon arrival, afebrile. History is strongly consistent with viral syndrome. Differential includes influenza, pancreatitis, UTI among others. Open we conducted with hematologic labs screening for acute derangements in the setting of inability to tolerate p.o. with diarrhea. Patient has a nonfocal neurologic exam. Viral swab and urinalysis will be obtained. Initial interventions include crystalloid bolus, Zofran, Tylenol, p.o. challenge. Workup with imaging was considered however given the patient has mild tenderness throughout, no foc al findings, no vital sign derangements will be deferred. Initial workup reviewed by me, hematologic labs are nonactionable, urinalysis interpreted by me and not consistent with infection, viral swab negative. Upon repeat evaluation patient was tolerating p.o. at bedside. I suspect patient has viral syndrome and is appropriate for discharge at this time. Patient was given return precautions and verbalized understanding. Critical Care Critical Care Time Critical Care Time: No
[2023-12-10] MEDS: ONDANSETRON 4MG/2ML VIAL 4 MG IV (18:42)
[2023-12-10] MEDS: ACETAMINOPHEN 500MG TAB 1000 MG PO (18:42)
[2023-12-10] MEDS: LACTATED RINGERS 1000ML 1,000 ML 999 ML IV (18:42)
[2023-12-10 18:45] LABS: Basophils % 0.2 % (0.1-2.0); Eosinophils # 0.1 K/mm3 (0.0-0.4); Eosinophils % 1.7 % (0.1-12.0); Hematocrit 43.2 % (37.0-47.0); Hemoglobin 14.4 g/dL (12.2-16.2); Lymphocytes # 0.4 K/mm3 (0.7-4.5); Lymphocytes % 5.1 % (10-50); Mean Corpuscular HGB Conc 33.3 g/dL (31.8-35.4); Mean Corpuscular Hemoglobin 29.5 pg (27.0-31.2); Mean Corpuscular Volume 88.6 fl (81-99); Monocytes # 0.2 K/mm3 (0.1-1.0); Monocytes % 3.2 % (1.7-9.3); Neutrophils # 6.6 K/mm3 (1.8-7.8); Neutrophils % 89.9 % (37.0-80.0); Platelet Count 154 K/mm3 (142-424); Red Blood Count 4.87 M/mm3 (4.20-5.40); Red Cell Distribution Width 13.9 % (11.5-17.5); White Blood Count 7.3 K/mm3 (4.8-10.8)
[2023-12-10 18:48] LABS: Coronavirus 19, PCR Not Detected (NotDetected); Influenza A, PCR Not Detected (NotDetected); Influenza B, PCR Not Detected (NotDetected)
[2023-12-10 18:48] LABS: MANUAL DIFFERENTIAL MANUAL DIFFERENTIAL (MANUAL DIFF)
[2023-12-10 18:50] LABS: Chloride 110 mmol/L (98-107); Sodium 139 mmol/L (136-145)
[2023-12-10 18:52] LABS: Alanine Aminotransferase 21 U/L (12-78); Aspartate Amino Transferase 30 U/L (14-36); Blood Urea Nitrogen 15 mg/dl (7-17); Carbon Dioxide 22 mmol/L (22.0-30.0); Creatinine Clearance Estimated 53 mL/min (50-200); Estimated Glomerular Filt Rate 61 ml/min (>60); GFR (African American) 73 ML/MIN (>60)
[2023-12-10 18:53] LABS: Albumin/Globulin Ratio 1.4 (1.1-1.8); Alkaline Phosphatase 102 U/L (38-126); Bilirubin,Total 1.1 mg/dl (0.2-1.3); Globulin 2.9 g/dL (1.3-3.2); Glucose 136 mg/dl (74-100); Lipase 60 U/L (23-300); Total Protein,Serum 6.9 g/dl (6.3-8.2)
[2023-12-10 19:00] VITALS: BP 134/77; PULSE 72; O2SAT 96
[2023-12-10 19:11] LABS: Eosinophils % 1 % (0-3); Lymphocytes % 5 % (10-50); Monocytes % 1 % (2-9); Neutrophils % 93 % (42-76); Platelet Estimate Normal; RBC Morphology Normal; Total Cells Counted 100
--- NOTE | 2023-12-10 19:20 | PC.NURSE ---
urine collected and sent to lab
--- NOTE | 2023-12-10 19:21 | PC.NURSE ---
Assumed care and rounded on pt at this time. Pt assisted to bathroom. UA sent. Pt voices no other needs.
[2023-12-10 19:26] LABS: Appearance,Urine CLEAR (Clear); Blood, Urine 1+ (Negative); Color,Urine YELLOW (Yellow); Glucose,Urine (UA) Negative (Negative); Ketones,Urine Negative (Negative); Leukocyte Esterase,Urine Negative (Negative); Microscopic, Urine URINE MICROSCOPIC (MICROSCOPIC); Nitrate,Urine Negative (Negative); PH,Urine 5.5 (5.0-8.5); Protein,Urine Negative (Negative); Specific Gravity, Urine >= 1.030 (1.005-1.030); Urobilinogen,Urine 0.2 EU/dl (0.2)
[2023-12-10 19:34] LABS: Bilirubin,Urine 1+ (Negative)
[2023-12-10 19:41] LABS: Amorphous Sediment,Urine Trace /lpf; Bacteria,Urine 1+ /lpf; Mucus,Urine 1+ /lpf
[2023-12-10 20:01] VITALS: BP 121/70; PULSE 73; RESP 16; TEMP 36.8; O2SAT 98
== END 2023-12-10 20:03 | disposition home or self-care (01) ==
PROVIDERS: Emergency Provider Emergency Medicine; PCP Family Medicine
DX: R11.10 Vomiting, unspecified (principal); R19.7 Diarrhea, unspecified; R51.9 Headache, unspecified; I10 Essential (primary) hypertension; I48.0 Paroxysmal atrial fibrillation; E78.5 Hyperlipidemia, unspecified; E03.9 Hypothyroidism, unspecified; F03.90 Unspecified dementia, unspecified severity, without behavioral disturbance, psychotic disturbance, mood disturbance, and anxiety; F20.9 Schizophrenia, unspecified; Z85.42 Personal history of malignant neoplasm of other parts of uterus
CPT/HCPCS: 80053; 81001; 83690; 83735; 85007; 85025; 87636; 96361; 96374; 99285; J2405

== ENCOUNTER 2024-03-14 13:29 | Outpatient (CLI) | payer MEDICARE, SELFPAY ==
--- NOTE | 2024-03-14 13:32 | MR_ITS ---
FINAL REPORT CLINICAL HISTORY: MEMORY LOSS FINDINGS: Multiplanar MR imaging of the brain was performed without contrast. There is mild age-appropriate atrophy. There are scattered foci of increased T2 signal in the cerebral white matter that have a nonspecific appearance but likely represent mild chronic ischemic/gliotic changes. There is no evidence of intracranial hemorrhage or mass. No abnormal ventricular dilatation is identified. No abnormal extra-axial fluid collection is seen. No abnormality is seen on the diffusion weighted images. The posterior fossa and brainstem are unremarkable. Normal major vessel vascular flow voids are seen. IMPRESSION: Age-appropriate atrophy and mild chronic ischemic/gliotic changes. No acute intracranial abnormality. Authenticated and ERN
== END 2024-03-14 23:59 | disposition home or self-care (01) ==
LOC: RAD 13:30
PROVIDERS: PCP Family Medicine; Visit Provider Nurse Practitioner
DX: R41.3 Other amnesia (principal)
CPT/HCPCS: 70551

== ENCOUNTER 2024-03-27 10:32 | Day surgery (SDC) | payer MEDICARE, SELFPAY ==
[2024-03-22 13:06] VITALS: BMI 22.1
[2024-03-27] VITALS (7 sets, daily range): BP systolic 145–168; BP diastolic 70–99; PULSE 49–66; RESP 16–18; TEMP 36.6; O2SAT 96–99
[2024-03-27] MEDS: CYCLOPENTOLATE 2% OPHTH SOLN 2ML BOTTLE OP ×3 (12:40→12:50)
[2024-03-27] MEDS: PHENYLEPHRINE 2.5% OPHTH SOLN 2ML OP ×3 (12:40→12:50)
[2024-03-27] MEDS: SODIUM CHLORIDE 0.9% 10ML FLUSH SYRINGE 10 ML IV ×2 (12:40→14:02)
[2024-03-27] MEDS: TETRACAINE 0.5% OPTH SOL 15ML OP ×3 (12:40→12:49)
[2024-03-27] MEDS: MIDAZOLAM 2MG/2ML VIAL 1 MG IV (13:55)
[2024-03-27] MEDS: TIMOLOL 0.5% OPTH SOLN 5ML OP (14:02)
[2024-03-27] MEDS: LIDOCAINE 1% PF 2ML AMPULE 2 ML IJ (14:02)
[2024-03-27] MEDS: TOBRAMYCIN/DEX OPTH SUSP 2.5ML OP (14:02)
--- NOTE | 2024-04-10 13:27 | P.PCN_ITS ---
[facility] Procedure Note Date: 03/27/24 Time: 13:27 Procedure Note:: Preoperative Diagnosis: Cataract combined NS Cortical Complex [Right] Eye Postop diagnosis: same Operation: Microscopic phacoemulsification with intraocular lens implant [Right] Eye Specimen: None Blood Loss: None The patient was examined in the office with a complaint of poor vision in the [right] eye. The patient reports that this interferes with ADLs such as reading, watching TV and/or driving or the vision is like looking through a foggy haze and is very troubling. The patient was examined and found to have a visually significant cataract with best corrected vision of [20/400] by refraction and/or glare testing. Treatment options, risks and benefits were explained and the patient elected to have cataract surgery in an attempt to improve their vision. The patient had the eye anesthetized with topical tetracaine, the eye ways prepped and draped in the usual fashion for cataract surgery. A paracentesis and a temporal keratotomy were made. 0.2cc of 1% lidocaine PF was placed into the anterior chamber. And aqueous/viscoelastic exchange was done and a 360 degree capsulorexis was performed. Through hydrodissection and delineation with BSS on a cannula was done. The lens nucleus was phecoemulsified with CDE of [7.18 ]. Residual cortical material was removed using automated I&A The capsular bag was deepened with viscoelastica and a PCIOL was placed in the capsular bag with good centration and stability. Residual viscoelastic was removed using automated I&A. The keratotomy incision was hydrated with BSS on a cannula. The wound were checked and found to be water tight. IOP was checked digitally and adjusted as needed so as not to be too high. 1 drop of timolol 0.5%, ofloxacin, prednisolone acetate and ketorolac was instilled and eye shield taped over the eye. The patient was taken to recovery in good condition and will be seen postoperatively.
== END 2024-03-27 14:34 | disposition home or self-care (01) ==
PROVIDERS: PCP Family Medicine; Visit Provider Ophthalmology
PROC: (CPT 66984; principal; 2024-03-27 14:30)
DX: H25.11 Age-related nuclear cataract, right eye (principal); H53.8 Other visual disturbances
CPT/HCPCS: 66984; V2632

== ENCOUNTER 2024-04-10 07:04 | Day surgery (SDC) | payer MEDICARE, SELFPAY ==
[2024-04-06 13:50] VITALS: BMI 22.2
[2024-04-10] MEDS: CYCLOPENTOLATE 2% OPHTH SOLN 2ML BOTTLE OP ×3 (08:00→08:10)
[2024-04-10] MEDS: TETRACAINE 0.5% OPTH SOL 15ML OP ×3 (08:00→08:10)
[2024-04-10] MEDS: PHENYLEPHRINE 2.5% OPHTH SOLN 2ML OP ×3 (08:00→08:10)
[2024-04-10 08:12] VITALS: BP 151/87; PULSE 63; RESP 16; TEMP 36.2; O2SAT 97
[2024-04-10] MEDS: SODIUM CHLORIDE 0.9% 10ML FLUSH SYRINGE 10 ML IV ×2 (08:22→09:35)
[2024-04-10 09:35] VITALS: BP 160/74; PULSE 56; RESP 18; TEMP 36.6; O2SAT 100
[2024-04-10] MEDS: MIDAZOLAM 2MG/2ML VIAL 1 MG IV (09:35)
[2024-04-10 09:40] VITALS: BP 155/73; PULSE 55; RESP 18; TEMP 36.6; O2SAT 99
[2024-04-10] MEDS: LIDOCAINE 1% PF 2ML AMPULE 2 ML IJ (09:44)
[2024-04-10] MEDS: TOBRAMYCIN/DEX OPTH SUSP 2.5ML OP (09:44)
[2024-04-10 09:45] VITALS: BP 148/74; PULSE 55; RESP 18; TEMP 36.6; O2SAT 98
[2024-04-10] MEDS: TIMOLOL 0.5% OPTH SOLN 5ML OP (09:45)
[2024-04-10 09:50] VITALS: BP 147/67; PULSE 55; RESP 18; TEMP 36.6; O2SAT 99
[2024-04-10 09:57] VITALS: BP 143/86; PULSE 60; RESP 16; TEMP 36.2; O2SAT 95
--- NOTE | 2024-04-10 13:02 | HMH.PROCNOTE ---
[facility] Procedure Note Date: 04/10/24 Time: 13:02 Procedure Note:: Preoperative Diagnosis: Cataract combined NS Cortical Complex [Left] Eye Postop diagnosis: same Operation: Microscopic phacoemulsification with intraocular lens implant [Left] Eye Specimen: None Blood Loss: None The patient was examined in the office with a complaint of poor vision in the [left] eye. The patient reports that this interferes with ADLs such as reading, watching TV and/or driving or the vision is like looking through a foggy haze and is very troubling. The patient was examined and found to have a visually significant cataract with best corrected vision of [20/400] by refraction and/or glare testing. Treatment options, risks and benefits were explained and the patient elected to have cataract surgery in an attempt to improve their vision. The patient had the eye anesthetized with topical tetracaine, the eye ways prepped and draped in the usual fashion for cataract surgery. A paracentesis and a temporal keratotomy were made. 0.2cc of 1% lidocaine PF was placed into the anterior chamber. And aqueous/viscoelastic exchange was done and a 360 degree capsulorexis was performed. Through hydrodissection and delineation with BSS on a cannula was done. The lens nucleus was phecoemulsified with CDE of [7.54]. Residual cortical material was removed using automated I&A The capsular bag was deepened with viscoelastica and a PCIOL was placed in the capsular bag with good centration and stability. Residual viscoelastic was removed using automated I&A. The keratotomy incision was hydrated with BSS on a cannula. The wound were checked and found to be water tight. IOP was checked digitally and adjusted as needed so as not to be too high. 1 drop of timolol 0.5%, ofloxacin, prednisolone acetate and ketorolac was instilled and eye shield taped over the eye. The patient was taken to recovery in good condition and will be seen postoperatively.
== END 2024-04-10 10:03 | disposition home or self-care (01) ==
PROVIDERS: PCP Family Medicine; Visit Provider Ophthalmology
PROC: (CPT 66984; principal; 2024-04-10 09:30)
DX: H25.12 Age-related nuclear cataract, left eye (principal); H53.8 Other visual disturbances
CPT/HCPCS: 66984; J2250; V2632

== ENCOUNTER 2024-09-06 20:19 | Day surgery (SDC) | payer MEDICARE, SELFPAY ==
[2024-09-06] VITALS (8 sets, daily range): BP systolic 115–191; BP diastolic 70–103; PULSE 55–77; RESP 16–20; TEMP 36.6; O2SAT 94–100; BMI 28.3; BMI 22.6
--- NOTE | 2024-09-06 20:26 | XR_ITS ---
PROCEDURE INFORMATION: Exam: XR Soft Tissue Neck Exam date and time: 09/06/2024 8:20 PM Age: 78 years old Clinical indication: Other: Choking on food; Additional info: Foodstuff in esophagus, choked on sandwich TECHNIQUE: Imaging protocol: Radiologic exam of the soft tissues of the neck. COMPARISON: CT CERVICAL SPINE WO CON 10/04/2019 7:41 PM FINDINGS: Airway: Normal. No abnormal narrowing. Soft tissues: Normal. Normal epiglottis. Bones/joints: Unremarkable. IMPRESSION: No acute findings.
--- NOTE | 2024-09-06 20:56 | ED_ITS ---
Discharge Plan Disposition Patient Disposition: Admitted Prescriptions Prescriptions: No Action levothyroxine [Synthroid] 25 mcg tablet 25 mcg PO DAILY 90 Days Qty: 90 meloxicam 15 mg tablet 15 mg PO DAILY 90 Days Qty: 90 venlafaxine [Effexor XR] 150 mg capsule,extended release 24hr 150 mg PO DAILY 90 Days Qty: 90 atorvastatin [Lipitor] 10 mg tablet 10 mg PO HS 90 Days Qty: 90 Xarelto 20 mg tablet 20 mg PO HS 90 Days Qty: 90 valsartan-hydrochlorothiazide [Diovan HCT] 320-12.5 mg tablet 1 tab PO DAILY acetaminophen [Tylenol Extra Strength] 500 mg tablet 500 mg PO Q6H PRN (Reason: Pain) sotalol [Betapace] 80 mg tablet 40 mg PO BID Referrals Follow up/Referrals: Akhil Brown MD [Primary Care Provider] - See instructions Clinical Impressions Clinical Impression: Food bolus obstruction of intestine Print Language Print Language: Uzbek Discharge ED Provider: John Warner General Adult HPI General Chief complaint: Recheck/Abnormal Lab/Rx Stated complaint: Something cought in throat Time Seen by Provider: 09/06/24 20:22 Mode of Arrival: Ambulatory Source of Information: Patient Limitations: No Limitations Description of Symptoms (Recalled from ER Triage Doc. by RN): Pt reports to ED with cc of food bolus. Pt reports eating a sandwich when it got stuck. Pt states not being able to swallow and feels like she is choking. History of Present Illness HPI narrative: Please note that above description of symptoms, in this electronic medical record under categorization of recalled from ER triage doctor by RN are reflective of an initial nursing assessment, however, is not reflective of my full history and physical exam that was personally taken and clarified. Consequentially, this preceding description of symptoms, which may include the patient's categorized chief complaint in the EMR, do not reflect my personal clinical impression, and the ultimate description of history of present illness and patient stated complaints should be deferred to this section of the note. Unless stated otherwise or congruent with this section of the note, additional signs, symptoms, or incongruence should be interpreted as inaccurate with my clinical impression. Related Data Home Medications ?Medication ?Instructions ?Recorded ?Confirmed levothyroxine 25 mcg tablet 25 mcg PO DAILY thyroid 90 days 10/08/20 06/11/24 (Synthroid) #90 tabs meloxicam 15 mg tablet 15 mg PO DAILY Pain 90 days #90 08/07/20 04/10/24 tabs venlafaxine 150 mg 150 mg PO DAILY mood 90 days #90 08/07/20 04/10/24 capsule,extended release 24 hr caps (Effexor XR) valsartan 320 1 tab PO DAILY blood pressure 08/22/20 04/10/24 mg-hydrochlorothiazide 12.5 mg tablet (Diovan HCT) atorvastatin 10 mg tablet (Lipitor) 10 mg PO HS Cholesterol 90 days 11/13/20 04/10/24 #90 tabs rivaroxaban 20 mg tablet (Xarelto) 20 mg PO HS Blood thinner 90 days 11/13/20 04/10/24 #90 tabs acetaminophen 500 mg tablet 500 mg PO Q6H PRN Pain 05/14/21 04/10/24 (Tylenol Extra Strength) sotalol 80 mg tablet (Betapace) 40 mg PO BID bp 12/22/22 04/10/24 Allergies Allergy/AdvReac Type Severity Reaction Status Date / Time venom-honey bee Allergy Intermediate Unknown Verified 04/10/24 08:10 allergy reaction venom-wasp Allergy Intermediate Unknown Verified 04/10/24 08:10 allergy reaction diphenhydramine Allergy Unknown HYPER Verified 04/10/24 08:10 [From BENADRYL] tuberculin, purified protein Allergy Unknown I-HIVES Verified 04/10/24 08:10 deriva [TUBERCULIN, PURIFIED PROTEIN DERIVA] COVID-19 (SARS-CoV-2) Allergy Unknown Verified 04/10/24 08:10 vaccine, olga allergy reaction [facility] Disclaimer: The information contained in this section may have been updated after the patient was seen, as this information can be updated by other users. Medical History (Updated 09/06/24 @ 21:57 by John Warner MD) History of cataract Palpitations SOB (shortness of breath) on exertion Chest pain Dementia Schizophrenia Hyperlipidemia Sinus bradycardia Osteoarthritis Hypothyroid Hypertension Atrial fibrillation History of anemia Uterine cancer Skin cancer Surgical History Hx of melanoma excision Hx of dilation and curettage History of hysterectomy History of cholecystectomy Family History Other Family history of diabetes mellitus type II Family history of hypertension Family history of myocardial infarction Social History Smoking Status: Never smoker alcohol intake: never substance use type: denies use current occupational status: retired Travel in the last 8 weeks: None household members: none housing: house lives independently: Yes marital status: education level: high school current occupational exposures/hazards: No caffeine: No in current or past relationships, have you been: made to feel afraid do you feel safe at home: Yes victim of physical abuse: No victim of emotional abuse: No victim of sexual abuse: No would you like helpful sources: No Other Medical History Have you received the Flu Vaccine for this season: No Have you received the Pneumonia Vaccine: Yes ROS Obtained: Yes All systems reviewed & no additional complaints except as documented Physical Exam General General appearance: alert and in distress (Secondary to discomfort) Head Head exam: atraumatic and normocephalic Eye Eye exam: Present normal appearance, PERRL and EOMI Neck Neck exam: Present normal inspection, full ROM and trachea midline Respiratory Respiratory exam: Present normal lung sounds bilaterally; Absent respiratory distress, wheezes, stridor, accessory muscle use or prolonged expiratory phase Cardiovascular Cardiovascular exam: Present other (Pulses equal symmetric in upper and lower extremities) Abdominal Exam Abdominal exam: Present soft; Absent distention, tenderness, guarding, rebound or pulsatile mass Extremities Exam Extremities exam: Absent edema Neurological Exam Neurological exam: Present alert, oriented X3 and CN II-XII intact; Absent motor sensory deficit Skin Skin exam: Present warm and dry; Absent diaphoresis or erythema Medical Decision Making Medical Records Medical records reviewed: Yes I reviewed the patient's medical records. Screening: Per USPSTF and CDC recommendations, given the prevalence of disease in our region, it is our hospital?s policy to screen for HIV and viral Hepatitis for all patients aged 18 and over and those with ongoing risk factors. Seth Inquiry Pt receiving controlled substance: No Seth was queried for this patient: No Vital Signs: 09/06/24 20:31 09/06/24 20:39 09/06/24 20:43 Temperature 97.9 F 97.9 F Temperature Source Oral Oral Pulse Rate 67 Pulse Rate [Left Radial] 77 77 Respiratory Rate 20 20 Blood Pressure 154/83 H Blood Pressure [Right Arm] 191/103 H 191/103 H Blood Pressure Mean Blood Pressure Mean [Right Arm] 132 132 Blood Pressure Source [Right Arm] Automatic Cuff Automatic Cuff Blood Pressure Position [Right Arm] Sitting Sitting 02 Sat by Pulse Oximetry 99 98 99 Oxygen Delivery Method Room Air Room Air 09/06/24 21:00 09/06/24 22:00 09/06/24 22:30 Temperature Temperature Source Pulse Rate 60 58 L 55 L Pulse Rate [Left Radial] Respiratory Rate Blood Pressure 158/79 H 150/70 H 150/82 H Blood Pressure [Right Arm] Blood Pressure Mean 108 Blood Pressure Mean [Right Arm] Blood Pressure Source [Right Arm] Blood Pressure Position [Right Arm] 02 Sat by Pulse Oximetry 98 97 94 L Oxygen Delivery Method Lab Data Lab Results 09/06/24 20:28: HIV 1&2 Antibody Rapid Nonreactive Orders (Tests/Meds): ED MEDICATIONS Discontinued Medications Generic Name Dose Route Start Last Admin Trade Name Freq PRN Reason Stop Dose Admin Glucagon 1 mg 09/06/24 20:48 09/06/24 21:26 Glucagon 1 Mg/Ml Vial IV 09/06/24 20:49 1 mg ONCE ONE Administration ORDERS Category Date Time Status XR soft tissue neck Stat Exams 09/06/24 20:26 Completed HIV (1&2) Antibody Rapid Stat Lab 09/06/24 20:28 Completed Hep C Ab with Reflex to RNA Stat Lab 09/06/24 20:28 Received Medical Decision Narrative: 78-year-old female history of hypertension, hyperlipidemia, A-fib on Xarelto, presenting with food bolus sensation. Patient states that she was eating about an hour prior to arrival, swallowed bologna sandwich and it got stuck. Unable to swallow or tolerate any food since. No pain, just discomfort near suprasternal notch. No respiratory distress or concerns. History was obtained via conversation with patient and family. On arrival, patient hemodynamically stable, alert, oriented x4, appropriate, GCS 15, moving all extremities spontaneously, pupils equal and reactive to light. Full physical exam performed and significant for patient appears to be in mild distress secondary to discomfort. Unable to tolerate secretions. Swallow test attempted, patient spit out fluid. Lungs are clear to auscultation, no evidence of stridor. Full range of motion of neck. Patient speaking full sentences with full range of motion of neck. Differential includes food bolus, oropharyngeal bolus, among others. Patient placed on continuous cardiac monitoring and continuous pulse ox with initial blood pressure 191/103, heart rate 77, saturation 99% on room. On independent interpretation of imaging, no obvious foreign body in the throat. Patient states that she feels that it is lower. Swallow test attempted, patient unable to tolerate fluids. 1 mg glucagon was given IV, this had no effect. Unable to tolerate any p.o. intake and at this point unwilling because she states it hurts too bad to swallow. Given this, general surgery was contacted and case was discussed, patient to be taken to operating room for scope. Because patient high risk for clinical decompensation, deemed appropriate for inpatient admission. Results were relayed to patient who voiced understanding and patient was agreeable to inpatient admission and management. Patient was admitted to the hospital for further definitive management. Horse Stud Manager disclaimer Much of this encounter note is an electronic cook pickled meat spoken language to printed text. Electronic cook pickled meat of the spoken language may permit errors. Although I have reviewed the note, some errors may still exist. Critical Care Critical Care Time Critical Care Time: No
[2024-09-06] MEDS: GLUCAGON 1 MG/ML VIAL IV (21:26)
[2024-09-06 22:07] LABS: HIV (1&2) Antibody Rapid NONREACTIVE (NONREACTIVE)
--- NOTE | 2024-09-06 22:52 | PC.NURSE ---
Telecommunications Equipment Installer Kristofer Glynn had registration page the airborne operations manager surgeon to ext. [phone]
--- NOTE | 2024-09-06 23:27 | P.PNANES_ITS ---
[facility] Disclaimer: The information contained in this section may have been updated after the patient was seen, as this information can be updated by other users. Medical History History of cataract Palpitations SOB (shortness of breath) on exertion Chest pain Dementia Schizophrenia Hyperlipidemia Sinus bradycardia Osteoarthritis Hypothyroid Hypertension Atrial fibrillation History of anemia Uterine cancer Skin cancer Surgical History Hx of melanoma excision Hx of dilation and curettage History of hysterectomy History of cholecystectomy Family History Other Family history of diabetes mellitus type II Family history of hypertension Family history of myocardial infarction Social History Smoking Status: Never smoker alcohol intake: never substance use type: denies use current occupational status: retired Travel in the last 8 weeks: None household members: none housing: house lives independently: Yes marital status: education level: high school current occupational exposures/hazards: No caffeine: No in current or past relationships, have you been: made to feel afraid do you feel safe at home: Yes victim of physical abuse: No victim of emotional abuse: No victim of sexual abuse: No would you like helpful sources: No [facility] Anesthesia Checklist Patient Identification Patient Identification: Arm Band and Verbal (Name & ) Structural Data Admitted From: Emergency Dept Planned Operative Procedure/s: EGD Consent for Planned Operative Procedure(s) Verified: Yes Verified Documents: Surgical Consent and History and Physical NPO Status Verified Time NPO: 20:00 Additional verifications Anesthesia Reactions: No Airway Assessment Mallampati Score:: Class II C-Spine Mobility Assessed: Yes TMJ Mobility Assessed: Yes Dentition: Poor Dentition (Only lower teeth remaining) Neurological Assessment Level of Consciousness: Awake Hx Seizures: No Numbness or tingling in extremities: No Anesthesia Plan Anesthesia Risk discussed: Yes Anesthesia Plan: Verified ASA Class: III (E) Anesthesia Type: MAC
--- NOTE | 2024-09-06 23:33 | EXP.SURG.CON ---
History of Present Illness *Admission Date: 09/06/24 *Reason for visit:: Unable to swallow *History of present illness: Patient is a 78-year-old female with history of dementia, hyperlipidemia, schizophrenia, osteoarthritis, hypothyroidism, hypertension, atrial fibrillation, uterine cancer, melanoma on meloxicam and Xarelto who presented to the emergency department approximately 8 PM after she had been eating a bologna sandwich and felt as though it became lodged. She subsequently has been unable to swallow. She describes discomfort continuous at the suprasternal notch with a dyne aphasia. Attempted oral intake was performed in the emergency department without success. She had been given glucagon with no relief. Surgical consultation was obtained. [facility] Disclaimer: The information contained in this section may have been updated after the patient was seen, as this information can be updated by other users. Medical History History of cataract Palpitations SOB (shortness of breath) on exertion Chest pain Dementia Schizophrenia Hyperlipidemia Sinus bradycardia Osteoarthritis Hypothyroid Hypertension Atrial fibrillation History of anemia Uterine cancer Skin cancer Surgical History Hx of melanoma excision Hx of dilation and curettage History of hysterectomy History of cholecystectomy Family History Other Family history of diabetes mellitus type II Family history of hypertension Family history of myocardial infarction Social History Smoking Status: Never smoker alcohol intake: never substance use type: denies use current occupational status: retired Travel in the last 8 weeks: None household members: none housing: house lives independently: Yes marital status: education level: high school current occupational exposures/hazards: No caffeine: No in current or past relationships, have you been: made to feel afraid do you feel safe at home: Yes victim of physical abuse: No victim of emotional abuse: No victim of sexual abuse: No would you like helpful sources: No Meds Home Medications and Allergies Home Medications ?Medication ?Instructions ?Recorded ?Confirmed ?Type levothyroxine 25 mcg tablet 25 mcg PO DAILY thyroid 90 days 08/07/20 04/10/24 History (Synthroid) #90 tabs meloxicam 15 mg tablet 15 mg PO DAILY Pain 90 days #90 08/07/20 04/10/24 History tabs venlafaxine 150 mg 150 mg PO DAILY mood 90 days #90 08/07/20 04/10/24 History capsule,extended release 24 hr caps (Effexor XR) valsartan 320 1 tab PO DAILY blood pressure 08/22/20 04/10/24 History mg-hydrochlorothiazide 12.5 mg tablet (Diovan HCT) atorvastatin 10 mg tablet (Lipitor) 10 mg PO HS Cholesterol 90 days 11/13/20 04/10/24 History #90 tabs rivaroxaban 20 mg tablet (Xarelto) 20 mg PO HS Blood thinner 90 days 11/13/20 04/10/24 History #90 tabs acetaminophen 500 mg tablet 500 mg PO Q6H PRN Pain 05/14/21 04/10/24 History (Tylenol Extra Strength) sotalol 80 mg tablet (Betapace) 40 mg PO BID bp 12/22/22 04/10/24 History New Prescriptions to Start Prescriptions: Allergies Allergy/AdvReac Type Severity Reaction Status Date / Time venom-honey bee Allergy Intermediate Unknown Verified 04/10/24 08:10 allergy reaction venom-wasp Allergy Intermediate Unknown Verified 04/10/24 08:10 allergy reaction diphenhydramine Allergy Unknown HYPER Verified 04/10/24 08:10 [From BENADRYL] tuberculin, purified protein Allergy Unknown I-HIVES Verified 04/10/24 08:10 deriva [TUBERCULIN, PURIFIED PROTEIN DERIVA] COVID-19 (SARS-CoV-2) Allergy Unknown Verified 04/10/24 08:10 vaccine, olga allergy reaction Exam (Inpt) Vital signs and Labs for Last 24 Hours: Temp Pulse Resp BP Pulse Ox O2 Del Method 97.9 F 60 20 156/83 H 97 Room Air 09/06/24 20:43 09/06/24 23:00 09/06/24 20:43 09/06/24 23:00 09/06/24 23:00 09/06/24 20:43 Laboratory Results - last 24 hr 09/06/24 20:28: HIV 1&2 Antibody Rapid Nonreactive I & O for Labs for Last 24 Hours: Intake & Output 09/04/24 09/05/24 09/06/24 09/07/24 11:59 11:59 11:59 11:59 Weight 153 lb Constitutional: no acute distress Comment:: Patient somewhat uncomfortable Head: Present normocephalic Neck: Present normal inspection Respiratory: Present CTA bilaterally Cardiac: Present S1/S2 GI: Present soft Rectal (female): Present deferred (female): Present deferred Results Labs Labs: Laboratory Results - last 24 hr 09/06/24 20:28: HIV 1&2 Antibody Rapid Nonreactive Assessment and Plan *Assessment and plan (1) Food bolus obstruction of intestine: Status: Acute Category: Medical Code(s): K56.699 - Other intestinal obstruction unspecified as to partial versus complete obstruction; [id number].F3XA - Food entering into or through a natural orifice, initial encounter Plan Plan to proceed with emergent upper endoscopy for food impaction.
--- NOTE | 2024-09-06 23:59 | HMH.SCOPE ---
Procedure: Date: 09/06/24 Patient Date of :: 1945 Procedure Performed:: Esophagogastroduodenoscopy Indications:: Patient is a 78-year-old female who had presented to the emergency department with symptoms consistent with esophageal obstruction secondary to food impaction after she had been eating a bologna sandwich. Symptoms were persistent despite medical management with glucagon. She was unable to tolerate oral intake and surgical consultation was obtained for emergent EGD. Performing Provider:: David Camp MD Referring Provider:: . Sedation:: MAC sedation Procedure:: Patient history was obtained and appropriate physical examination was performed. Patient's medications and allergies were reviewed. Informed consent was obtained after explaining the benefits, alternatives, and risks of the procedure including, but not limited to, bleeding, perforation, missed lesions, and adverse reaction to anesthesia medications. Patient was transported to endoscopy procedure room. Patient was connected to monitoring devices. Throughout the procedure the patient's blood pressure, pulse, and oxygen saturations were monitored continuously. Patient identification and planned procedure were verified by the staff. Patient was positioned in lateral decubitus position. Olympus endoscope was inserted via the oropharynx. Esophagus was cannulated. There was some tortuosity to the esophagus consistent with esophageal dysmotility. There was no evidence of any secretions or excessive saliva usually seen with esophageal obstruction. Gastroesophageal junction was encountered at approximately 35 cm from the incisors. There was no evidence of any stricture. Endoscope was withdrawn. There appeared to be a moderately large sliding hiatal hernia with some food material. Endoscope was able to be advanced into the gastric lumen and retroflexion revealed a moderately large approximately 5 cm sliding hiatal hernia. There are findings of possible mild diffuse nonerosive gastritis. Pylorus was not obstructed but the endoscope was not advanced into the duodenum. Stomach was desufflated and the scope was withdrawn. Findings:: Findings consistent with esophageal dysmotility Gastroesophageal junction at 35 cm Moderate sliding hiatal hernia Nonerosive gastritis No obstruction secondary to food impaction Recommendations:: Recommend limit to full liquids for 24 hours and avoid meats and breads Complications:: None immediately apparent Estimated blood obtained (mL): 0 Colonoscopy Component Colonoscopy Component Was a colonoscopy performed during today's procedure?: No
[2024-09-07 00:13] VITALS: BP 121/81; PULSE 70; RESP 16; TEMP 36.6; O2SAT 98
[2024-09-07 00:20] VITALS: BP 156/83; PULSE 60; RESP 20; TEMP 36.9; O2SAT 97
[2024-09-07 00:28] VITALS: BP 115/79; PULSE 69; RESP 16; TEMP 36.6; O2SAT 98
[2024-09-08 08:22] LABS: HCV Ab Non Reactive (Non Reactive)
== END 2024-09-07 00:28 | disposition home or self-care (01) ==
LOC: ER 09-07 00:22 → SDC 09-07 00:24
PROVIDERS: Emergency Provider Emergency Medicine; PCP Family Medicine; Visit Provider Surgery
PROC: 0DJ08ZZ Inspection of Upper Intestinal Tract, Via Natural or Artificial Opening Endoscopic (ICD-10-PCS; CPT 43235; principal; 2024-09-06 23:30)
DX: K22.4 Dyskinesia of esophagus (principal); K56.699 Other intestinal obstruction unspecified as to partial versus complete obstruction; K44.9 Diaphragmatic hernia without obstruction or gangrene; K29.70 Gastritis, unspecified, without bleeding; W44.F3XA Food entering into or through a natural orifice, initial encounter
CPT/HCPCS: 43235; 70360; 86803; 87389; J1611

== ENCOUNTER 2024-11-19 10:41 | Outpatient (CLI) | payer MEDICARE, SELFPAY ==
--- NOTE | 2024-11-19 10:43 | FL_ITS ---
FINAL REPORT CLINICAL HISTORY: dysphagia 3.29 min 18.37 mgy 299.03 dap feels like foods get stuck in her throat FINDINGS: FLUOROSCOPY LESS THAN 1 HOUR HISTORY: Fluoroscopy guidance. FINDINGS: Fluoroscopic guidance was provided for barium swallow. A total of 3.29 minutes of fluoroscopy time were used. DAP: 18.37 mGy IMPRESSION: As above. Reviewed, Interpreted and Dictated by Eddie Silverman MD Transcribed by Azucena Maradiaga Authenticated and [facility]
--- NOTE | 2024-11-19 14:19 | HMH.SLMBS2 ---
Speech & Language Evaluation Speech/Language Mod Barium Swallow Start: 11/19/24 13:52 Freq: once Status: Complete Protocol: Document 11/19/24 13:52 [facility] (Rec: 11/19/24 14:18 [facility] laptop) Co-signed By [facility] General Information General Current Food Consistancy Regular,Thin Liquids Dentition Poor Dentition Oxygen Status Room Air Facial Symmetry Symmetrical Patient Orientation Person,Place,Time,Situation Ability to Follow Directions Excellent Communication Ability No Impairment MBS Recommendations Diet Dietary Recommendations Regular,Thin Liquids Treatment/Strategies Strategy/Precaution Recommend Sitting Upright (90 deg),Small Bites and Sips,Alternate Liquids/Solids Referrals/Other Recommended Referrals GI Consult,ENT Consult Mod Barium Swallow Impressions Summary and Impressions Oral Phase Impression Minimal Impairment Oral Phase Summary Minimal impairment of the oral phase of swallow. Pt was observed to have adequate labial seal on all consistencies trialed. Pt was observed to have minimal oral residue on pudding, mechanical soft, and regular food trials , which was cleared with subsequent swallow. Pt's lingual movement was WFL on all consistencies trialed. Pt had slightly slowed/prolonged mastication and manipulation of bolus on regular food trial . During second barium tablet trial, pt was u/a to propel barium tablet into oropharynx and had to expectorate barium tablet. Barium tablet was cleared into esophagus when presented in puree trial. Pharyngeal Phase Impression Minimal Impairment Pharyngeal Phase Summary Minimal impairment of pharyngeal phase of swallow. No aspiration observed on any consistency trialed. No A/P propulsion spills were observed on any consistency trialed. Hyolaryngeal excursion and elevation and base of tongue retraction were observed to be WFL. Pt was observed to have minimal pyriform sinus residue on puree trials, which was cleared with subsequent swallow. Pt had difficulty swallowing barium tablet. FINANCIAL OPERATIONS ANALYST presented barium tablet in puree and barium tablet was able to be cleared into esophagus. Speech/Language MBS Assessment/Goals/Plan Assessment Date of Evaluation: 11/19/24 Evaluation Type Initial Certification Assessment/Problems dysphagia per MD order Does Patient Qualify for Service No Qualify/Failure Comment Based on clinical observations made throughout instrumental assessment (MBSS) and pt interview, further skilled speech therapy services are not warranted at this time d/t safe/efficient swallow function and adequate mastication and manipulation of bolus on all consistencies trialed. Recommendations PHYSICIAN CERTIFICATION: The specified therapy services are required, authorized, and reviewed every 30 days. Diet Recommendations Normal Liquid Type Recommendations Normal/Thin SL Swallow Guidelines Standard Aspiration Prec.,Eat at slow rate,Oral Care Education,Reflux precautions Dysphagia Swallow Precautions/Strategies Sitting Upright (90 deg),Small Bites and Sips,Alternate Liquids/Solids Comment Consults recommended for GI and ENT d/t pt reported globus sensation and pain during swallows. Pt was observed to grimace/grab throat during swallows. Plan Pt/Guardian verbally ack understanding Yes of dx/prognosis/goals G -code Required No Education Instructions provided FINANCIAL OPERATIONS ANALYST discussed clinical observations made throughout instrumental assessment, diet recommendations, compensatory strategies/aspiration precautions, and recommended consults with pt who expressed understanding. Pt/Caregiver able to recall information Able to recall/restate Reinforcement needed No Mod Barium Swallow Setup Exam Setup Radiologist David Stone Level of Consciousness Awake,Alert,Appropriate, Follows Commands Mod Barium Swallow-Lat View Textures Lateral View Food Presentation Thin Liquid via Cup,Thin Liquid via Straw,Pureed Food- Thick,Mech. Soft Food- Regular ,Barium Tablet,Regular Food, Pudding Comment All bolus presentations administered x2 to assess for consistency and fatigue. Oral Phase Labial Closure No Impairment (WFL) Bolus Formation Pooling L/R No Impairment (WFL) Bolus Formation under Tongue No Impairment (WFL) Bolus Formation Scattered Loss No Impairment (WFL) Mastication Rotary Chew Minimal Impairment Mastication Munching Minimal Impairment Mastication Lateralization Minimal Impairment Lingual Movement No Impairment (WFL) Residue Clearing Minimal Impairment Pharyngeal Phase A/P Lingual Propulsion Spills No Impairment (WFL) Swallow Response Delay No Impairment (WFL) Base of Tongue No Impairment (WFL) Epiglottic Coverage No Impairment (WFL) Laryngeal Elevation No Impairment (WFL) Vallecular Retention Clearing No Impairment (WFL) Pharyn. Wall Residue Clearing No Impairment (WFL) Piriform Sinus Retention Minimal Impairment Aspiration? No Silent aspiration? No Mod Barium Swallow-AP View Performed Mod Barium Swallow A/P View Test Not Applicable/Performed PHYSICIAN CERTIFICATION: I certify the specified therapy services for Karina Wilson are required, authorized, and reviewed every 30 days.
== END 2024-11-19 23:59 | disposition home or self-care (01) ==
LOC: RAD 10:43
PROVIDERS: PCP Family Medicine; Visit Provider Surgery
DX: R13.10 Dysphagia, unspecified (principal)
CPT/HCPCS: 74230; 92611

== ENCOUNTER 2025-01-08 12:43 | Outpatient (CLI) | payer MEDICARE, SELFPAY ==
--- NOTE | 2025-01-08 12:43 | US_ITS ---
FINAL REPORT CLINICAL HISTORY: Right sided lymphdenopathy COMPARISON: None FINDINGS: Limited sonographic images were obtained of the soft tissues in the neck at the area of interest. The submandibular gland is unremarkable. The parotid gland is unremarkable. There are small lymph nodes bilaterally measuring less than 1 cm. These have a benign appearance. IMPRESSION: Benign appearing lymph nodes. Reviewed, Interpreted and Dictated by Eddie Silverman MD Transcribed by Adelaida Contreras Authenticated and [facility]
--- NOTE | 2025-01-08 12:43 | US_ITS ---
FINAL REPORT TECHNIQUE: Sonographic images of the thyroid were obtained. CLINICAL HISTORY: enlarged thyroid COMPARISON: None FINDINGS: THYROID ULTRASOUND The left thyroid gland measures 4.9 x 1.4 x 1.5 cm. The right thyroid gland measures 2.3 x 1.3 x 1.4 cm cm. The parenchyma shows normal echogenicity. The most dominant nodule is on the left measuring 1.4 cm, TI-RADS 3. There is a small nodule in the isthmus measuring 0.5 cm, TI-RADS 3. The right dominant structure is a cystic focus measuring 0.9 cm. IMPRESSION: Multiple nodules bilaterally. The largest is on the left, TI-RADS 3, measuring 1.4 cm. No follow-up required. Reviewed, Interpreted and Dictated by Eddie Silverman MD Transcribed by Adelaida Contreras Authenticated and [facility]
== END 2025-01-08 23:59 | disposition home or self-care (01) ==
LOC: RAD 12:43
PROVIDERS: PCP Family Medicine; Visit Provider Nurse Practitioner
DX: E01.0 Iodine-deficiency related diffuse (endemic) goiter (principal); R59.1 Generalized enlarged lymph nodes
CPT/HCPCS: 76536

== ENCOUNTER 2025-02-15 17:52 | Observation (INO) | payer MEDICARE, SELFPAY ==
[2025-02-15] VITALS (11 sets, daily range): BP systolic 158–190; BP diastolic 88–104; PULSE 60–84; RESP 18–20; TEMP 36.8; O2SAT 97–99; BMI 25.7
--- OUTSIDE RECORDS SUMMARY | 2025-02-15 18:06 | XMS_ITS | Clinical Summary ---
Author Organization [facility] , [facility] Address [address] [place] [address] Phone Care Team Providers Care Commercial Lawn Specialist Name Role Phone Lázaro ISIDRO, Luh Unavailable [phone] Lia FIGUEREDO, Pernell Unavailable [phone] IGNACIO FIGUEREDO, HIRAM Unavailable [phone] Reason for Visit and Chief Complaint The Chief Complaint is: Right hip pov Problems Includes: Problems addressed during this encounter and other active Problems All Visits Onset Date Resolved Date Provider Condition S tatus Joint Pain in the Left Hip 03/27/2021 Pernell marshall MD Active Last Documented On 8:21AM ; [facility] Plan of Treatment Fall Risk Assessment: This patient has been identified as a fall risk. Balance/gait along with postural blood pressure, vision and home fall hazards have been assessed. Medications have been reviewed, and recommendations made with regard to contributing factors for future falls. Plan of care: Consideration of vitamin D supplementation along with balance and strength training with consideration for formal physical therapy has been discussed with the patient. - Last Documented On 07/27/2023 12:15PM ; [facility] Patient was seen by myself Robert Hayward PA-C. Patient will follow up [address] Fitzgerald patient would like to try outpatient physical therapy we will set her up to do this and then see her back with him in 3 weeks. - Last Documented On 07/27/2023 12:15PM ; [facility] Assessments Includes: Assessments from this encounter Findings Left total hip revision 07/01/2023 - Last Documented On 07/27/2023 12:15PM ; [facility], [facility] Medical Equipment - Implanted Devices Includes: Current Devices No Medical Equipment Recorded Medications Includes: Medications discussed during this encounter and other current Medications Current Medications (continue as prescribed) Ondansetron 4 MG Oral Tablet Disintegrating 12/12/2023 Provider: Diagnosis: Last Documented On 4 9:22AM By Albania Darby ; [facility], [facility] Sotalol HCl 80 MG Oral Tablet 12/07/2023 Provider: HIRAM PIERRE MD Diagnosis: Last Documented On 4 9:22AM By Albania Darby ; [facility], [facility] Levothyroxine Sodium 25 MCG Oral Tablet 12/02/2023 Coni mitchell: HIRAM PIERRE MD Diagnosis: Last Documented On 4 9:22AM By Albania Darby ; [facility], [facility] Valsartan-hydroCHLOROthiazid e 320-12.5 MG Oral Tablet 12/02/2023 Provider: HIRAM PIERRE MD Diagnosis: Last Documented On 4 9:22AM By Albania Darby ; [facility], [facility] Venlafaxine HCl ER 150 MG Or al Capsule Extended Release 24 Hour 12/02/2023 Provider: HIRAM PIERRE MD Diagnosis: Last Documented On 4 9:22AM By Albania Darby ; [facility], [facility] Amoxicillin-Pot Clavulanate 875-125 MG Oral Tablet Provider: Diagnosis: Last Documented On 4 9:22AM By Albania Darby ; [facility], [facility] Cetirizine HCl 10 MG Oral Capsule 03/27/2021 Provide r: Diagnosis: Last Documented On 1 9:12AM By Ami Dickerson ; [facility], [facility] Tetracycline HCl 500 MG Oral Capsule 01/22/2021 Prov ider: CARLA RUIZ II, MD Diagnosis: Last Documented On 1 8:45AM By Pam Valencia ; [facility], [facility] Omeprazole 20 MG Oral Capsul e Delayed Release 01/22/2021 Provider: CARLA RUIZ II, MD Diagnosis: Last Documented On 1 8:45AM By Pam Valencia ; [facility], [facility] metroNIDAZOLE 250 MG Oral Tablet 01/22/2021 Provider : CARLA RUIZ II, MD Diagnosis: Last Documented On 1 8:45AM By Pam Valencia ; [facility] FeroSul 325 (65 Fe) MG Oral Tablet 12/22/2020 Provid er: Diagnosis: Last Documented On 1 8:45AM By Pam Valencia ; [facility] Xarelto 20 MG Oral Tablet 12/08/2020 Provider: Diagnosis: Last Documented On 1 8:45AM By Pam Valencia ; [facility] Donepezil HCl 10 MG Oral Tablet 11/13/2020 Provider: TONY CARRERA MD (N) Diagnosis: Last Documented On 1 8:45AM By Pam Valencia ; [facility] Meloxicam 15 MG Oral Tablet 09/06/2020 Provider: Diagnosis: Last Documented On 1 9:12AM By Ami Dickerson ; [facility], [facility] Atorvastatin Calcium 10 MG Oral Tablet 06/06/2020 Pr ovider: Diagnosis: Last Documented On 1 9:12AM By Ami Dickerson ; [facility], [facility] Past Medications on file oxyCODONE HCl 5 MG Oral Tablet 06/28/2023 - 07/03/2023 Provider: Pernell Fitzgerald MD Diagnosis: 1-2 p o q 6-8h for post op pain Last Documented On 3 8:44AM By Pernell Fitzgerald ; [facility], [facility] Meloxicam 15 MG Oral Tablet 06/28/2023 - 07/28/2023 Pr ovider: Pernell Fitzgerald MD Diagnosis: once a day Last Documented On 3 8:44AM By Pernell Fitzgerald ; [facility], [facility] Cefadroxil 500 MG Oral Capsule 06/28/2023 - 07/01/2023 Provider: Pernell Fitzgerald MD Diagnosis: twice a day Last Documented On 3 8:44AM By Pernell Fitzgerald ; [facility], [facility] traMADol HCl 50 MG Oral Tablet 06/28/2023 - 07/13/2023 Provider: Pernell Fitzgerald MD Diagnosis: 1-2 p o q 6-8h for breakthrough post op pain Last Documented On 3 8:44AM By Pernell Fitzgerald ; [facility], [facility] Acetaminophen 500 MG Oral Tablet 06/28/2023 - 07/28/20 Provider: Pernell Fitzgerald MD Diagnosis: 2 three times a day , AFTER SURGERY Last Documented On 3 8:29AM By Pernell Fitzgerald ; [facility], [facility] Colace 100 MG Oral Capsule 06/28/2023 - 07/28/2023 Pro vider: Pernell Fitzgerald MD Diagnosis: 1-2 tabs daily as needed, AFTER SURGERY Last Documented On 3 8:44AM By Pernell Fitzgerald ; [facility], [facility] Ondansetron HCl 4 MG Oral Tablet 06/28/2023 - 07/12/20 Provider: Pernell Fitzgerald MD Diagnosis: 1-2 p o q 6-8h as needed for nausea Last Documented On 3 8:44AM By Pernell Fitzgerald ; [facility], [facility] Mupirocin 2% External Ointment 06/23/2023 - 06/28/2023 Provider: Pernell Fitzgerald MD Diagnosis: as directed Apply to each no stril with a q tip once a day for 5 days prior to surgery Last Documented On 3 3:24PM By Laurie Pablo ; [facility], [facility] Mupirocin 2% External Ointment 06/08/2023 - 06/13/2023 Provider: Pernell Fitzgerald MD Diagnosis: as directed Apply to each no stril with a q tip once a day for 5 days prior to surgery Last Documented On 3 1:53PM By Laurie Pablo ; [facility], [facility] Cefadroxil 500 MG Oral Capsule 09/17/2021 - 09/20/2021 Provider: Pernell Fitzgerald MD Diagnosis: twice a day Last Documented On 1 2:48PM By Haley Allen ; [facility], [facility] Colace 100 MG Oral Capsule 09/17/2021 - 10/17/2021 Pro vider: Pernell Fitzgerald MD Diagnosis: 1-2 tablets daily, as needed, AFTER SURGERY Last Documented On 1 2:48PM By Haley Allen ; [facility], [facility] Zofran 4 MG Oral Tablet 09/17/2021 - 10/17/2021 Provid er: Pernell Fitzgerald MD Diagnosis: take 1 tablet every 6-8hrs for nausea, AFTER ZAIDA ANA Last Documented On 1 2:49PM By Haley Allen ; [facility] oxyCODONE HCl 5 MG Oral Tablet 09/17/2021 - 10/17/2021 Provider: Pernell Fitzgerald MD Diagnosis: take 1-2 tablets every 4-6hrs for post op pain Last Documented On 1 3:02PM By Pernell Fitzgerald ; [facility] Ultram 50 MG Oral Tablet 09/17/2021 - 10/17/2021 Provi fausto: Pernell Fitzgerald MD Diagnosis: 1-2 tablets every 6-8 hours for breakthrough pos t op pain Last Documented On 1 3:02PM By Pernell Fitzgerald ; [facility], [facility] Aspirin Adult Low Strength 8 1 MG Oral Tablet Delayed Release 09/17/2021 - 11/01/2021 Provider: Pernell Fitzgerald MD Diagnosis: twice a day Last Documented On 1 2:47PM By Haley Allen ; [facility] Acetaminophen 500 MG Oral Tablet 09/17/2021 - 10/17/20 21 Provider: Pernell Fitzgerald MD Diagnosis: take 2 tablets 3 times daily, AFTER SURGERY Last Documented On 1 2:47PM By Haley Allen ; [facility] oxyCODONE HCl 5 MG Oral Tablet 09/14/2021 - 10/14/2021 Provider: Pernell Fitzgerald MD Diagnosis: take 1-2 tablets every 4-6hrs for post op pain Last Documented On 1 4:52PM By Pernell Fitzgerald ; [facility] Ultram 50 MG Oral Tablet 07/31/2021 - 08/30/2021 Provi fausto: Pernell Fitzgerald MD Diagnosis: 1-2 po q6h prn pain Last Documented On 1 2:44PM By Pernell Fitzgerald ; [facility] Ultram 50 MG Oral Tablet 06/02/2021 - 07/02/2021 Provi fausto: Pernell Fitzgerald MD Diagnosis: 1-2 po q6h prn pain Last Documented On 1 12:40PM By Pernell Fitzgerald ; [facility], [facility] Medications Administered Includes: Administered Medications from this encounter No Administered Medications Recorded Results Includes: Results discussed during this encounter No Results Recorded For Specified Dates History of Present Illness Includes: History of Present Illness from this encounter HPI Karina Wilson is a 77 year old female. - Allergy list reviewed - Problem list reviewed - Medication reconciliation performed - Medication list reviewed - Medication list reviewed with patient - Patient pain level from 1-10: 3 Patient is here today for follow-up on her Left total hip revision Surgery date was 07/01/2023. She has not had any formal physical therapy she says no one is come out of the house she had. She is feeling better but still has some pain with this left hip Social History Description Last Updated Tobacco non-user 12/27/2023 Last Documented On 3 2:26PM ; [facility], [facility] No recent change in diet 12/27/2023 Last Documented On 3 2:26PM ; [facility], [facility] Not a current smoker. 12/27/2023 Last Documented On 3 2:26PM ; [facility] Caffeine use 12/21/2022 Last Documented On 3 2:26PM ; [facility], [facility] Not exercising regularly 12/21/2022 Last Documented On 3 2:26PM ; [facility] Non-smoker 03/27/2021 Last Documented On 3 2:26PM ; [facility], [facility] No recent change in diet 03/27/2021 Last Documented On 3 2:26PM ; [facility], [facility] Not a current smoker. 03/27/2021 Last Documented On 3 2:26PM ; [facility] Not using alcohol 03/27/2021 Last Documented On 3 2:26PM ; [facility], [facility] Not using drugs 03/27/2021 Last Document[facility] 3 2:26PM ; [facility] Smoking Status Unknown Procedures and Surgical History Includes: Procedures from this encounter Procedures Code Diagnosis Performing Provider Service L ocation Service Date use of tobacco assessment performed 1000F Last Documented On 3 2:26PM ; [facility]HAEL, [facility] patient screened for future fall risk: documentation of any fall with injury in past year 1100F Last Documented On 3 2:26PM ; [facility] review of medications documented 1160F Last Documented On 3 2:26PM ; [facility], [facility] Surgical History Last Updated History of History of Gallbladder 2022 Last Documented On 3 2:26PM ; [facility], [facility] History of hysterectomy 12/21/2022 Last Documented On 3 2:26PM ; [facility] ROMERO, [facility] History of total hip replacement 023 Last Documented On 3 2:26PM ; [facility] Medical History Includes: Medical History addressed during this encounter Description Last Updated History of arthritis 12/21/2022 Last Documented On 3 2:26PM ; [facility], [facility] History of depression 12/21/2022 Last Documented On 3 2:26PM ; [facility] History of heart disease 12/21/2022 Last Documented On 3 2:26PM ; [facility], [facility] History of Heartburn / Acid Reflux 12/21 Last Documented On 3 2:26PM ; [facility] History of Hypertension 12/21/2022 Last Documented On 3 2:26PM ; [facility], [facility] History of Irregular Heartbeat 3 Last Documented On 3 2:26PM ; [facility] Recent immunization for flu 07/31/2021 1 12/28/2020 Last Documented On 3 2:26PM ; [facility] No recent immunization for pneumococcal pneumonia 03/27/2021 Last Documented On 3 2:26PM ; [facility] Family History Includes: Family History addressed during this encounter Description Last Updated Diabetes mellitus 12/21/2022 Last Documented On 3 2:26PM ; [facility] Family history of heart disease 12/21/19 23 Last Documented On 3 2:26PM ; [facility] Family history of osteoporosis 3 Last Documented On 3 2:26PM ; [facility] Family history of rheumatoid arthritis 0 12/21/2022 Last Documented On 3 2:26PM ; [facility] Review of Systems Includes: Review of Systems from this encounter Systemic: Feeling tired and recent weight loss. No recent weight gain. Head: Headache. No sinus pain. Eyes: No vision problems and no Cataracts. Glasses/Contacts. No Glaucoma. Otolaryngeal: No hearing loss. Tinnitus. Cardiovascular: No chest pain or discomfort. Palpitations. No Hypertension and no High Cholesterol. Pulmonary: No daytime asthma symptoms and no chronic cough. No wheezing. Gastrointestinal: Heartburn. No abdominal pain. No Indigestion. Acid Reflux. No Peptic Ulcer, no GI Stomach Bleed, and no Ulcers. Endocrine: No hot flashes, no muscle weakness, no Diabetes, no Hypothyroid, and no Hyperthyroid. Hematologic: Easy bleeding. No tendency for easy bruising. Anemia. Musculoskeletal: No Arthritis. Lower back pain. No soft tissue swelling. Pain localized to one or more joints. Neurological: No dizziness, no convulsions, and no numbness. Psychological: Anxiety. No emotional lability. Depression, insomnia, and crying for no reason. Skin: No dry skin. No Ulcers. Scars. No rash. Allergic and Immunologic: No complaint of seasonal allergic reaction. Mental Status Includes: Mental Status from this encounter Description Anxiety Functional Status Includes: Functional Status from this encounter No Functional Status Recorded Physical Exam Includes: Physical Exam from this encounter Allergies Includes: Active Allergies Substance Type Reaction Onset Date Resolved Date Statu s Benadryl Allergy 08/23/2023 Active Last Documented On 4 10:44AM ; [facility] Note: hyper Encounters Encounter Provider Location Date Check-In Time Check- Out Time Diagnosis Follow Up Robert Hayward PA-C [facility] 3 1:50PM 3:25PM Insurance Includes: Active Insurance Policies Plan Name Member ID Group # Subscriber Relationship Effect elena Dates 1 - Medicare Part B [facility] [id number] Karina Wilson Self 05/31/2013 - Unknown 2 - [facility] [employer] [id number] Karina Wilson Self 10/31/19 21 - Unknown Clinical Notes Includes: Clinical Notes from this encounter * Progress note Date Encounter Last Documented by 07/26/2023 Follow Up Last documented on 07/27/2023; 12:15 PM, Robert Obando; [facility], [facility] Active Problems & Conditions - Joint Pain in the Left Hip Chief Complaint The Chief Complaint is: Right hip pov. Referred Here Referred by pcp. History of Present Illness Karina Wilson is a 77 year old female. - Allergy list reviewed - Problem list reviewed - Medication reconciliation performed - Medication list reviewed - Medication list reviewed with patient - Patient pain level from 1-10: 3 Patient is here today for follow-up on her Left total hip revision Surgery date was 07/01/2023. She has not had any formal physical therapy she says no one is come out of the house she had. She is feeling better but still has some pain with this left hip Current Medication - Acetaminophen 500 MG Oral Tablet 2 three times a day , AFTER SURGERY, 10 days, 2 refills - Atorvastatin Calcium 10 MG Oral Tablet 90 days, 0 refills - Cetirizine HCl 10 MG Oral Capsule take as directed 0 days, 0 refills - Colace 100 MG Oral Capsule 1-2 tabs daily as needed, AFTER SURGERY, 30 days, 0 refills - Donepezil HCl 10 MG Oral Tablet 90 days, 0 refills - FeroSul 325 (65 Fe) MG Oral Tablet 30 days, 0 refills - Meloxicam 15 MG Oral Tablet 90 days, 0 refills - Meloxicam 15 MG Oral Tablet once a day, 30 days, 0 refills - metroNIDAZOLE 250 MG Oral Tablet 10 days, 0 refills - Omeprazole 20 MG Oral Capsule Delayed Release 10 days, 0 refills - Sotalol HCl 80 MG Oral Tablet 90 days, 0 refills - Tetracycline HCl 500 MG Oral Capsule 10 days, 0 refills - Valsartan-hydroCHLOROthiazide 320-12.5 MG Oral Tablet 90 days, 0 refills - Venlafaxine HCl ER 150 MG Oral Capsule Extended Release 24 Hour 90 days, 0 refills - Xarelto 20 MG Oral Tablet 30 days, 0 refills Past Medical/Surgical History Reported: Immunization History: Recent immunization for flu 07/31/2021. No recent immunization for pneumococcal pneumonia. Diagnoses: Heart disease. Irregular Heartbeat Heartburn / Acid Reflux Hypertension. Arthritis. Depression Procedural: - History of Gallbladder Surgical: - Hysterectomy - Total hip replacement Social History Not a current smoker. Not a current smoker. Current diet: No recent change in diet. No recent change in diet. Caffeine use: Caffeine use. Tobacco use: Tobacco non-user and non-smoker. Alcohol: Not using alcohol. Drug Use: Not using drugs. Habits: Not exercising regularly. Allergies - No Known Allergies Family History Heart disease Diabetes mellitus Osteoporosis Rheumatoid arthritis Review Of Systems Systemic: Feeling tired and recent weight loss. No recent weight gain. Head: Headache. No sinus pain. Eyes: No vision problems and no Cataracts. Glasses/Contacts. No Glaucoma. Otolaryngeal: No hearing loss. Tinnitus. Cardiovascular: No chest pain or discomfort. Palpitations. No Hypertension and no High Cholesterol. Pulmonary: No daytime asthma symptoms and no chronic cough. No wheezing. Gastrointestinal: Heartburn. No abdominal pain. No Indigestion. Acid Reflux. No Peptic Ulcer, no GI Stomach Bleed, and no Ulcers. Endocrine: No hot flashes, no muscle weakness, no Diabetes, no Hypothyroid, and no Hyperthyroid. Hematologic: Easy bleeding. No tendency for easy bruising. Anemia. Musculoskeletal: No Arthritis. Lower back pain. No soft tissue swelling. Pain localized to one or more joints. Neurological: No dizziness, no convulsions, and no numbness. Psychological: Anxiety. No emotional lability. Depression, insomnia, and crying for no reason. Skin: No dry skin. No Ulcers. Scars. No rash. Allergic and Immunologic: No complaint of seasonal allergic reaction. Physical Findings Her incisions look clean dry intact no sign of any infection she is using a walker to walk with Tests Two views left hip shows in good position July 27, 2023 Assessment Left total hip revision 07/01/2023 Plan Fall Risk Assessment: This patient has been identified as a fall risk. Balance/gait along with postural blood pressure, vision and home fall hazards have been assessed. Medications have been reviewed, and recommendations made with regard to contributing factors for future falls. Plan of care: Consideration of vitamin D supplementation along with balance and strength training with consideration for formal physical therapy has been discussed with the patient. Patient was seen by myself Robert Hayward PA-C. Patient will follow up [address] Fitzgerald patient would like to try outpatient physical therapy we will set her up to do this and then see her back with him in 3 weeks. Notes This dictation was done with voice recognition software and may contain errors and omissions. Practice Management Use of tobacco assessment performed and patient screened for future fall risk documentation of any fall with injury in past year Review of medications documented. Care Team - HIRAM PIERRE MD - DRUG ABUSE SOCIAL WORKER - Luh Sesay PA-C
--- OUTSIDE RECORDS SUMMARY | 2025-02-15 18:06 | XMS_ITS | Clinical Summary ---
Author Organization [facility] , [facility] Address [address] [place] [address] Phone Care Team Providers Care Predictive Maintenance Specialist Name Role Phone Lázaro ISIDRO, Luh Unavailable [phone] Lia FIGUEREDO, Pernell Unavailable [phone] IGNACIO FIGUEREDO, HIRAM Unavailable [phone] Reason for Visit and Chief Complaint The Chief Complaint is: left hip pain Problems Includes: Problems addressed during this encounter and other active Problems All Visits Onset Date Resolved Date Provider Condition S tatus Joint Pain in the Left Hip 03/27/2021 Pernell marshall MD Active Last Documented On 8:21AM ; [facility] Plan of Treatment Fall Risk Assessment: This [...] with the patient. - Last Documented On 08/25/2023 1:29PM ; [facility] Patient was seen by myself and Dr. Fitzgerald. Robert Hayward PA-C Patient will follow- up 3 months repeat x-rays of her left hip. 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 - Last Documented On 08/25/2023 1:29PM ; [facility] Medical Equipment - Implanted Devices Includes: Current Devices No Medical Equipment Recorded Medications Includes: Medications discussed during this encounter and other current Medications Current Medications (continue as prescribed) Ondansetron 4 MG Oral Tablet Disintegrating 12/12/2023 Provider: Diagnosis: Last Documented On 4 9:22AM By Albania Darby ; [facility], [facility] Sotalol HCl 80 MG Oral Tablet 12/07/2023 Provider: HIRAM PIERRE MD Diagnosis: Last Documented On 4 9:22AM By [place]ia Darby ; [facility], [facility] Levothyroxine Sodium 25 MCG Oral Tablet 12/02/2023 Coni mitchell: HIRAM PIERRE MD Diagnosis: Last Documented On 4 9:22AM By Albania Darby ; [facility] Valsartan-hydroCHLOROthiazid e 320-12.5 MG Oral Tablet 12/02/2023 Provider: HIRAM PIERRE MD Diagnosis: Last Documented On 4 9:22AM By Albania Darby ; [facility] Venlafaxine HCl ER 150 MG Or al Capsule Extended Release 24 Hour 12/02/2023 Provider: HIRAM PIERRE MD Diagnosis: Last Documented On 4 9:22AM By Albania Darby ; [facility], [facility] Amoxicillin-Pot Clavulanate 875-125 MG Oral Tablet Provider: Diagnosis: Last Documented On 4 9:22AM By Albania Darby ; [facility] Cetirizine HCl 10 MG Oral Capsule 03/27/2021 Provide r: Diagnosis: Last Documented On 1 9:12AM By Ami Dickerson ; [facility] Tetracycline HCl 500 MG Oral Capsule 01/22/2021 Prov ider: CARLA RUIZ II, MD Diagnosis: Last Documented On 1 8:45AM By Pam Valencia ; [facility] Omeprazole 20 MG Oral Capsul e Delayed Release 01/22/2021 Provider: CARLA RUIZ II, MD Diagnosis: Last Documented On 1 8:45AM By Pam Valencia ; [facility] metroNIDAZOLE 250 MG Oral Tablet 01/22/2021 Provider : CARLA RUIZ II, MD Diagnosis: Last Documented On 1 8:45AM By Pam Valencia ; [facility] FeroSul 325 (65 Fe) MG Oral Tablet 12/22/2020 Provid er: Diagnosis: Last Documented On 1 8:45AM By Pam Valencia ; [facility] Xarelto 20 MG Oral Tablet 12/08/2020 Provider: Diagnosis: Last Documented On 1 8:45AM By Pam Valencia ; [facility] Donepezil HCl 10 MG Oral Tablet 11/13/2020 Provider: TONY CARRERA MD (N) Diagnosis: Last Documented On 1 8:45AM By Pam Valencia ; [facility] Meloxicam 15 MG Oral Tablet 09/06/2020 Provider: Diagnosis: Last Documented On 1 9:12AM By Ami Dickerson ; [facility] Atorvastatin Calcium 10 MG Oral Tablet 06/06/2020 Pr ovider: Diagnosis: Last Documented On 1 9:12AM By Ami Dickerson ; [facility], [facility] Past Medications on file oxyCODONE HCl 5 MG Oral Tablet 06/28/2023 - 07/03/2023 Provider: Pernell Fitzgerald MD Diagnosis: 1-2 p o q 6-8h for post op pain Last Documented On 3 8:44AM By Pernell Fitzgerald ; [facility] Meloxicam 15 MG Oral Tablet 06/28/2023 - 07/28/2023 Pr ovider: Pernell Fitzgerald MD Diagnosis: once a day Last Documented On 3 8:44AM By Pernell Fitzgerald ; [facility] Cefadroxil 500 MG Oral Capsule 06/28/2023 - 07/01/2023 Provider: Pernell Fitzgerald MD Diagnosis: twice a day Last Documented On 3 8:44AM By Pernell Fitzgerald ; [facility] traMADol HCl 50 MG Oral Tablet 06/28/2023 - 07/13/2023 Provider: Pernell Fitzgerald MD Diagnosis: 1-2 p o q 6-8h for breakthrough post op pain Last Documented On 3 8:44AM By Pernell Fitzgerald ; [facility], [facility] Acetaminophen 500 MG Oral Tablet 06/28/2023 - 07/28/20 Provider: Pernell Fitzgerald MD Diagnosis: 2 three times a day , AFTER SURGERY Last Documented On 3 8:29AM By Pernell Fitzgerald ; [facility], [facility] Colace 100 MG Oral Capsule 06/28/2023 - 07/28/2023 Pro vider: Pernell Fitzgerald MD Diagnosis: 1-2 tabs daily as needed, AFTER SURGERY Last Documented On 3 8:44AM By Pernell Fitzgerald ; [facility], [facility] Ondansetron HCl 4 MG Oral Tablet 06/28/2023 - 07/12/20 Provider: Pernell Fitzgerald MD Diagnosis: 1-2 p o q 6-8h as needed for nausea Last Documented On 3 8:44AM By Pernell Fitzgerald ; [facility], [facility] Mupirocin 2% External Ointment 06/23/2023 - 06/28/2023 Provider: Pernell Fitzgerald MD Diagnosis: as directed Apply to each no stril with a q tip once a day for 5 days prior to surgery Last Documented On 3 3:24PM By Laurie Pablo ; [facility], [facility] Mupirocin 2% External Ointment 06/08/2023 - 06/13/2023 Provider: Pernell Fitzgerald MD Diagnosis: as directed Apply to each no stril with a q tip once a day for 5 days prior to surgery Last Documented On 3 1:53PM By Laurie Pablo ; [facility], [facility] Cefadroxil 500 MG Oral Capsule 09/17/2021 - 09/20/2021 Provider: Pernell Fitzgerald MD Diagnosis: twice a day Last Documented On 1 2:48PM By Haley Allen ; [facility], [facility] Colace 100 MG Oral Capsule 09/17/2021 - 10/17/2021 Pro vider: Pernell Fitzgerald MD Diagnosis: 1-2 tablets daily, as needed, AFTER SURGERY Last Documented On 1 2:48PM By Haley Allen ; [facility], [facility] Zofran 4 MG Oral Tablet 09/17/2021 - 10/17/2021 Provid er: Pernell Fitzgerald MD Diagnosis: take 1 tablet every 6-8hrs for nausea, AFTER ZAIDA ANA Last Documented On 1 2:49PM By Haley Allen ; [facility] oxyCODONE HCl 5 MG Oral Tablet 09/17/2021 - 10/17/2021 Provider: Pernell Fitzgerald MD Diagnosis: take 1-2 tablets every 4-6hrs for post op pain Last Documented On 1 3:02PM By Pernell Fitzgerald ; [facility] Ultram 50 MG Oral Tablet 09/17/2021 - 10/17/2021 Provi fausto: Pernell Fitzgerald MD Diagnosis: 1-2 tablets every 6-8 hours for breakthrough pos t op pain Last Documented On 1 3:02PM By Pernell Fitzgerald ; [facility], [facility] Aspirin Adult Low Strength 8 1 MG Oral Tablet Delayed Release 09/17/2021 - 11/01/2021 Provider: Pernell Fitzgerald MD Diagnosis: twice a day Last Documented On 1 2:47PM By Haley Allen ; [facility], [facility] Acetaminophen 500 MG Oral Tablet 09/17/2021 - 10/17/20 21 Provider: Pernell Fitzgerald MD Diagnosis: take 2 tablets 3 times daily, AFTER SURGERY Last Documented On 1 2:47PM By Haley Allen ; [facility], [facility] oxyCODONE HCl 5 MG Oral Tablet 09/14/2021 - 10/14/2021 Provider: Pernell Fitzgerald MD Diagnosis: take 1-2 tablets every 4-6hrs for post op pain Last Documented On 1 4:52PM By Pernell Fitzgerald ; [facility] Ultram 50 MG Oral Tablet 07/31/2021 - 08/30/2021 Provi fausto: Pernell Fitzgerald MD Diagnosis: 1-2 po q6h prn pain Last Documented On 1 2:44PM By Pernell Fitzgerald ; [facility] Ultram 50 MG Oral Tablet 06/02/2021 - 07/02/2021 Provi fausto: Pernell Fitzgerald MD Diagnosis: 1-2 po q6h prn pain Last Documented On 1 12:40PM By Pernell Fitzgerald ; [facility], [facility] Medications Administered Includes: Administered Medications from this encounter No Administered Medications Recorded Vital Signs Includes: Vital Signs from this encounter Vital Name 08/23/2023 10:29A Height (in) 68 Weight (lb) 162 Body Mass Index 24.6 Body Surface Area 1.9 Note: lc Last Documented: On 08/23/2023 10:29A M ; [facility] Results Includes: Results discussed during this encounter No Results Recorded For Specified Dates History of Present Illness Includes: History of Present Illness from this encounter HPI Karina Wilson is a 77 year old female. - Allergy list reviewed - Problem list reviewed - Medication reconciliation performed - Medication list reviewed Follow-up on her left hip revision 08/23/2023 doing well at this point time she is off her walker she has been walking not having any significant pain symptoms that she was having last visit have resolved after a little slip injury that she had. Social History Description Last Updated Tobacco non-user 12/27/2023 Last Documented On 3 10:04AM ; [facility] No recent change in diet 12/27/2023 Last Documented On 3 10:04AM ; [facility] Not a current smoker. 12/27/2023 Last Documented On 3 10:04AM ; [facility] Caffeine use 12/21/2022 Last Documented On 3 10:04AM ; [facility] Not exercising regularly 12/21/2022 Last Documented On 3 10:04AM ; [facility] Non-smoker 03/27/2021 Last Documented On 3 10:04AM ; [facility] No recent change in diet 03/27/2021 Last Documented On 3 10:04AM ; [facility] Not a current smoker. 03/27/2021 Last Documented On 3 10:04AM ; [facility] Not using alcohol 03/27/2021 Last Documented On 3 10:04AM ; [facility] Not using drugs 03/27/2021 Last Documented On 3 10:04AM ; [facility] Smoking Status Unknown Procedures and Surgical History Includes: Procedures from this encounter Procedures Code Diagnosis Performing Provider Service L ocation Service Date use of tobacco assessment performed 1000F Last Documented On 3 10:04AM ; [facility], [facility] patient screened for future fall risk: documentation of any fall with injury in past year 1100F Last Documented On 3 10:04AM ; [facility], [facility] review of medications documented 1160F Last Documented On 3 10:04AM ; [facility], [facility] Surgical History Last Updated History of History of Gallbladder 2022 Last Documented On 3 10:04AM ; [facility] History of hysterectomy 12/21/2022 Last Documented On 3 10:04AM ; [facility] History of total hip replacement 023 Last Documented On 3 10:04AM ; [facility] Medical History Includes: Medical History addressed during this encounter Description Last Updated History of arthritis 12/21/2022 Last Documented On 3 10:04AM ; [facility] History of depression 12/21/2022 Last Documented On 3 10:04AM ; [facility] History of heart disease 12/21/2022 Last Documented On 3 10:04AM ; [facility], [facility] History of Heartburn / Acid Reflux 12/21 Last Documented On 3 10:04AM ; [facility], [facility] History of Hypertension 12/21/2022 Last Documented On 3 10:04AM ; [facility], [facility] History of Irregular Heartbeat 3 Last Documented On 3 10:04AM ; [facility] Recent immunization for flu 07/31/2021 1 12/28/2020 Last Documented On 3 10:04AM ; [facility], [facility] No recent immunization for pneumococcal pneumonia 03/27/2021 Last Documented On 3 10:04AM ; [facility] Family History Includes: Family History addressed during this encounter Description Last Updated Diabetes mellitus 12/21/2022 Last Documented On 3 10:04AM ; [facility] Family history of heart disease 12/21/19 23 Last Documented On 3 10:04AM ; [facility] Family history of osteoporosis 3 Last Documented On 3 10:04AM ; [facility] Family history of rheumatoid arthritis 0 12/21/2022 Last Documented On 3 10:04AM ; [facility] Review of Systems Includes: Review of Systems [...] Active Last Documented On 4 10:44AM ; [facility] Note: hyper Encounters Encounter Provider Location Date Check-In Time Check- Out Time Diagnosis Follow Up Pernell Fitzgerald [facility] 3 10:02AM 10:52AM Insurance Includes: Active Insurance Policies Plan Name Member ID Group # Subscriber Relationship Effect elena Dates 1 - Medicare Part B [facility] [id number] Karina Wilson Self 05/31/2013 - Unknown 2 - [facility] [employer] [id number] Karina Wilson Self 10/31/19 21 - Unknown Clinical Notes Includes: Clinical Notes from this encounter * Progress note Date Encounter Last Documented by 08/23/2023 Follow Up Last documented on 08/25/2023; 1:29 PM, Pernell Fitzgerald MD; [facility], [facility] Active Problems & Conditions - Joint Pain in the Left Hip Chief Complaint The Chief Complaint is: Left hip pain. Referred Here Referred by pcp. History of Present Illness Karina Wilson is a 77 year old female. - Allergy list reviewed - Problem list reviewed - Medication reconciliation performed - Medication list reviewed Follow-up on her left hip revision 08/23/2023 doing well at this point time she is off her walker she has been walking not having any significant pain symptoms that she was having last visit have resolved after a little slip injury that she had. Current Medication - Atorvastatin Calcium 10 MG Oral Tablet 90 days, 0 refills - Cetirizine HCl 10 MG Oral Capsule take as directed 0 days, 0 refills - Donepezil HCl 10 MG Oral Tablet 90 days, 0 refills - FeroSul 325 (65 Fe) MG Oral Tablet 30 days, 0 refills - Meloxicam 15 MG Oral Tablet 90 days, 0 refills - metroNIDAZOLE 250 MG [...] Heartburn / Acid Reflux Hypertension. Arthritis. Depression Surgical: - Hysterectomy - History of Gallbladder - Total hip replacement Social History Not a current smoker. Not a current smoker. Current diet: No recent change in diet. No recent change in diet. Caffeine use: Caffeine use. Tobacco use: Tobacco non-user and non-smoker. Alcohol: Not using alcohol. Drug Use: Not using drugs. Habits: Not exercising regularly. Allergies - Benadryl Family History Heart disease Diabetes mellitus Osteoporosis [...] complaint of seasonal allergic reaction. 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 Patient was seen by myself and Dr. Fitzgerald. Robert Hayward PA-C Patient will follow- up 3 months repeat x-rays of her left hip. Notes This dictation was done with voice recognition software and may contain errors and omissions. Practice Management Use of tobacco assessment performed and patient screened for future fall risk documentation of any fall with injury in past year Review of medications documented. Care Team - HIRAM PIERRE MD - CASTING OPERATOR - Luh Sesay PA-C
--- OUTSIDE RECORDS SUMMARY | 2025-02-15 18:06 | XMS_ITS ---
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 Name Role Phone Lázaro ISIDRO, Luh Unavailable [phone] Lia FIGUEREDO, Pernell Unavailable [phone] IGNACIO FIGUEREDO, HIRAM Unavailable [phone] Reason for Referral Date Encounter Description Provider Reason for Referral 10/27/21 Post Op Pernell Fitzgerald MD Referral To Physician - See PCp for BP 09/29/21 Post Op Pernell Fitzgerald MD Referral To Physician - See PCp for BP 06/02/21 Follow Up Pernell Fitzgerald MD Referral To Physician - see pcp for bp Problems Includes: Active, inactive, and resolved Problems All Visits Onset Date Resolved Date Provider Condition S tatus Joint Pain in the Left Hip 03/27/2021 Pernell marshall MD Active Last Documented On 1 8:21AM ; [facility], [facility] Plan of Treatment Findings Encounter Date Patient screened for future fall risk: documentation of any fall with injury in past year Follow Up with Pernell Fitzgerald MD 05/08/2024 Last Documented On 4 3:41PM ; [facility], [facility] Instructions to patient Lose weight Last Documented On 3 9:58AM ; [facility], [facility] Lose weight Last Documented On 3 9:52AM ; [facility], [facility] Lose weight Last Documented On 2 9:10AM ; [facility], [facility] Assessments Includes: Assessments for all patient encounters No Assessments Recorded Instructions Includes: Instructions for all patient encounters Instructions to patient Lose weight Last Documented On 3 9:58AM ; [facility], [facility] Lose weight Last Documented On 3 9:52AM ; [facility], [facility] Lose weight Last Documented On 2 9:10AM ; [facility], [facility] Medical Equipment - Implanted Devices Includes: Current and historical Devices No Medical Equipment Recorded Medications Includes: Current and historical Medications Current Medications (continue as prescribed) Ondansetron 4 MG Oral Tablet Disintegrating 12/12/2023 Provider: Diagnosis: Last Documented On 4 9:22AM By Albania Darby ; [facility], [facility] Sotalol HCl 80 MG Oral Tablet 12/07/2023 Provider: HIRAM PIERRE MD Diagnosis: Last Documented On 4 9:22AM By Albania Darby ; [facility], [facility] Levothyroxine Sodium 25 MCG Oral Tablet 12/02/2023 Coni mitchell: HIRAM PIERRE MD Diagnosis: Last Documented On 4 9:22AM By Albania Darby ; [facility] Valsartan-hydroCHLOROthiazid e 320-12.5 MG Oral Tablet 12/02/2023 Provider: HIRAM PIERRE MD Diagnosis: Last Documented On 4 9:22AM By Albania Darby ; [facility], [facility] Venlafaxine HCl ER 150 MG Or al Capsule Extended Release 24 Hour 12/02/2023 Provider: HIRAM PIERRE MD Diagnosis: Last Documented On 4 9:22AM By Albania Darby ; [facility], [facility] Amoxicillin-Pot Clavulanate 875-125 MG Oral Tablet Provider: Diagnosis: Last Documented On 4 9:22AM By Albania Darby ; [facility], [facility] Cetirizine HCl 10 MG Oral Capsule 03/27/2021 Provide r: Diagnosis: Last Documented On 1 9:12AM By Ami Dickerson ; [facility], [facility] Tetracycline HCl 500 MG Oral Capsule 01/22/2021 Prov ider: CARLA RUIZ II, MD Diagnosis: Last Documented On 1 8:45AM By Pam Valencia ; [facility], [facility] Omeprazole 20 MG Oral Capsul e Delayed Release 01/22/2021 Provider: CARLA RUIZ II, MD Diagnosis: Last Documented On 1 8:45AM By Pam Valencia ; [facility] metroNIDAZOLE 250 MG Oral Tablet 01/22/2021 Provider : CARLA RUIZ II, MD Diagnosis: Last Documented On 1 8:45AM By Pam Valencia ; [facility] FeroSul 325 (65 Fe) MG Oral Tablet 12/22/2020 Provid er: Diagnosis: Last Documented On 1 8:45AM By Pam Valencia ; [facility], [facility] Xarelto 20 MG Oral Tablet 12/08/2020 Provider: Diagnosis: Last Documented On 1 8:45AM By Pam Valencia ; [facility] Donepezil HCl 10 MG Oral Tablet 11/13/2020 Provider: TONY CARRERA MD (N) Diagnosis: Last Documented On 1 8:45AM By Pam Valencia ; [facility], [facility] Meloxicam 15 MG Oral Tablet 09/06/2020 Provider: Diagnosis: Last Documented On 1 9:12AM By Ami Dickerson ; [facility], [facility] Atorvastatin Calcium 10 MG Oral Tablet 06/06/2020 Pr ovider: Diagnosis: Last Documented On 1 9:12AM By Ami Dickerson ; [facility], [facility] Past Medications on file oxyCODONE HCl 5 MG Oral Tablet 06/28/2023 - 07/03/2023 Provider: Pernell Fitzgerald MD Diagnosis: 1-2 p o q 6-8h for post op pain Last Documented On 3 8:44AM By Pernell Fitzgerald ; [facility], [facility] Meloxicam 15 MG Oral Tablet 06/28/2023 - 07/28/2023 Pr ovider: Pernell Fitzgerald MD Diagnosis: once a day Last Documented On 3 8:44AM By Pernell Fitzgerald ; [facility], [facility] Cefadroxil 500 MG Oral Capsule 06/28/2023 - 07/01/2023 Provider: Pernell Fitzgerald MD Diagnosis: twice a day Last Documented On 3 8:44AM By Pernell Fitzgerald ; [facility], [facility] traMADol HCl 50 MG Oral Tablet 06/28/2023 - 07/13/2023 Provider: Pernell Fitzgerald MD Diagnosis: 1-2 p o q 6-8h for breakthrough post op pain Last Documented On 3 8:44AM By Pernell Fitzgerald ; [facility], [facility] Acetaminophen 500 MG Oral Tablet 06/28/2023 - 07/28/20 23 Provider: Pernell Fitzgerald MD Diagnosis: 2 three times a day , AFTER SURGERY Last Documented On 3 8:29AM By Pernell Fitzgerald ; [facility], [facility] Colace 100 MG Oral Capsule 06/28/2023 - 07/28/2023 Pro vider: Pernell Fitzgerald MD Diagnosis: 1-2 tabs daily as needed, AFTER SURGERY Last Documented On 3 8:44AM By Pernell Fitzgerald ; [facility], [facility] Ondansetron HCl 4 MG Oral Tablet 06/28/2023 - 07/12/20 Provider: Pernell Fitzgerald MD Diagnosis: 1-2 p o q 6-8h as needed for nausea Last Documented On 3 8:44AM By Pernell Fitzgerald ; [facility], [facility] Mupirocin 2% External Ointment 06/23/2023 - 06/28/2023 Provider: Pernell Fitzgerald MD Diagnosis: as directed Apply to each no stril with a q tip once a day for 5 days prior to surgery Last Documented On 3 3:24PM By Laurie Pablo ; [facility], [facility] Mupirocin 2% External Ointment 06/08/2023 - 06/13/2023 Provider: Pernell Fitzgerald MD Diagnosis: as directed Apply to each no stril with a q tip once a day for 5 days prior to surgery Last Documented On 3 1:53PM By Laurie Pablo ; [facility], [facility] Cefadroxil 500 MG Oral Capsule 09/17/2021 - 09/20/2021 Provider: Pernell Fitzgerald MD Diagnosis: twice a day Last Documented On 1 2:48PM By Haley Allen ; [facility] Colace 100 MG Oral Capsule 09/17/2021 - 10/17/2021 Pro vider: Pernell Fitzgerald MD Diagnosis: 1-2 tablets daily, as needed, AFTER SURGERY Last Documented On 1 2:48PM By Haley Allen ; [facility] Zofran 4 MG Oral Tablet 09/17/2021 - 10/17/2021 Provid er: Pernell Fitzgerald MD Diagnosis: take 1 tablet every 6-8hrs for nausea, AFTER ZAIDA ANA Last Documented On 1 2:49PM By Haley Allen ; [facility] oxyCODONE HCl 5 MG Oral Tablet 09/17/2021 - 10/17/2021 Provider: Pernell Fitzgerald MD Diagnosis: take 1-2 tablets every 4-6hrs for post op pain Last Documented On 1 3:02PM By Pernell Fitzgerald ; [facility] Ultram 50 MG Oral Tablet 09/17/2021 - 10/17/2021 Provi fausto: Pernell Fitzgerald MD Diagnosis: 1-2 tablets every 6-8 hours for breakthrough pos t op pain Last Documented On 1 3:02PM By Pernell Fitzgerald ; [facility] Aspirin Adult Low Strength 8 1 MG Oral Tablet Delayed Release 09/17/2021 - 11/01/2021 Provider: Pernell Fitzgerald MD Diagnosis: twice a day Last Documented On 1 2:47PM By Haley Allen ; [facility] Acetaminophen 500 MG Oral Tablet 09/17/2021 - 10/17/20 21 Provider: Pernell Fitzgerald MD Diagnosis: take 2 tablets 3 times daily, AFTER SURGERY Last Documented On 1 2:47PM By Haley Allen ; [facility] oxyCODONE HCl 5 MG Oral Tablet 09/14/2021 - 10/14/2021 Provider: Pernell Fitzgerald MD Diagnosis: take 1-2 tablets every 4-6hrs for post op pain Last Documented On 1 4:52PM By Pernell Fitzgerald ; [facility] Ultram 50 MG Oral Tablet 07/31/2021 - 08/30/2021 Provi fausto: Pernell Fitzgerald MD Diagnosis: 1-2 po q6h prn pain Last Documented On 1 2:44PM By Pernell Fitzgerald ; [facility] Ultram 50 MG Oral Tablet 06/02/2021 - 07/02/2021 Provi fausto: Pernell Fitzgerald MD Diagnosis: 1-2 po q6h prn pain Last Documented On 1 12:40PM By Pernell Fitzgerald ; [facility] Valsartan-hydroCHLOROthiazid e 320-12.5 MG Oral Tablet 09/09/2020 - 12/27/2023 Provider: Diagnosis: Last Documented On 4 12:06PM By Lissette De ; [facility] Venlafaxine HCl ER 150 MG Or al Capsule Extended Release 24 Hour 09/06/2020 - 12/27/2023 Provider: Diagnosis: Last Documented On 4 12:06PM By Lissette [facility] Sotalol HCl 80 MG Oral Tablet 06/06/2020 - 12/27/2023 Provider: Diagnosis: Last Documented On 4 12:06PM By Lissette De ; [facility] Medications Administered Includes: Administered Medications in patient's chart No Administered Medications Recorded Vital Signs Includes: Vital Signs from 02/16/2024 through 02/15/2025 Vital Name 05/08/2024 10:52A Height (in) 68 Weight (lb) 154.3 Body Mass Index 23.5 Body Surface Area 1.8 Pain Level 8 Last Documented: On 05/08/2024 10:53A M ; [facility] Results Includes: Results from 02/16/2024 through 02/15/2025 No Results Recorded For Specified Dates History of Present Illness History of Present Illness not supported for this document type No History of Present Illness Recorded Social History Description Last Updated Tobacco non-user 12/27/2023 Last Documented On 4 8:48AM ; [facility] No recent change in diet 12/27/2023 Last Documented On 4 8:48AM ; [facility] Not a current smoker. 12/27/2023 Last Documented On 4 8:48AM ; [facility], [facility] Caffeine use 12/21/2022 Last Documented On 3 10:34AM ; [facility], [facility] Not exercising regularly 12/21/2022 Last Documented On 3 10:34AM ; [facility], [facility] Non-smoker 03/27/2021 Last Documented On 1 3:32PM ; [facility], [facility] No recent change in diet 03/27/2021 Last Documented On 1 3:32PM ; [facility], [facility] Not a current smoker. 03/27/2021 Last Documented On 1 3:32PM ; [facility], [facility] Not using alcohol 03/27/2021 Last Documented On 1 3:32PM ; [facility], [facility] Not using drugs 03/27/2021 Last Documented On 1 3:32PM ; [facility], [facility] Smoking Status Unknown Procedures and Surgical History Includes: Procedures from 02/16/2024 through 02/15/2025 Procedures Code Diagnosis Performing Provider Service Location Service Date X-RAY EXAM OF KNEE 1 OR 2 VIEWS (RIGHT) 34786 Unilateral primary osteoarthritis, right knee Pernell Fitzgerald MD [facility] 05/08/2024 Last Documented On 4 4:26PM ; [facility] Surgical History Last Updated History of History of Gallbladder 2022 Last Documented On 3 10:34AM ; [facility], [facility] History of hysterectomy 12/21/2022 Last Documented On 3 10:34AM ; [facility] History of total hip replacement 023 Last Documented On 3 10:34AM ; [facility], [facility] Medical History Includes: Medical History in patient's chart Description Last Updated History of arthritis 12/21/2022 Last Documented On 3 10:34AM ; [facility] History of depression 12/21/2022 Last Documented On 3 10:34AM ; [facility], [facility] History of heart disease 12/21/2022 Last Documented On 3 10:34AM ; [facility] History of Heartburn / Acid Reflux 12/21 Last Documented On 3 10:34AM ; [facility] History of Hypertension 12/21/2022 Last Documented On 3 10:34AM ; [facility] History of Irregular Heartbeat 3 Last Documented On 3 10:34AM ; [facility] Recent immunization for flu 07/31/2021 1 12/28/2020 Last Documented On 2 4:22PM ; [facility] No recent immunization for pneumococcal pneumonia 03/27/2021 Last Documented On 1 3:32PM ; [facility] Family History Includes: Family History in patient's chart Description Last Updated Diabetes mellitus 12/21/2022 Last Documented On 3 10:34AM ; [facility] Family history of heart disease 12/21/19 23 Last Documented On 3 10:34AM ; [facility] Family history of osteoporosis 3 Last Documented On 3 10:34AM ; [facility] Family history of rheumatoid arthritis 0 12/21/2022 Last Documented On 3 10:34AM ; [facility] Review of Systems Review of Systems not supported for this document type No Review of Systems Recorded Mental Status Description Anxiety Functional Status No Functional Status Recorded Physical Exam Physical Exam not supported for this document type No Physical Exam Recorded Allergies Includes: Active, inactive, and resolved Allergies Substance Type Reaction Onset Date Resolved Date Statu s Benadryl Allergy 08/23/2023 Active Last Documented On 4 10:44AM ; [facility] Note: hyper Encounters Includes: Encounters from 02/16/2024 through 02/15/2025 Encounter Provider Location Date Check-In Time Check- Out Time Diagnosis Follow Up Pernell Fitzgerald MD [facility] 4 10:03AM 11:14AM Insurance Includes: Active Insurance Policies Plan Name Member ID Group # Subscriber Relationship Effect elena Dates 1 - Medicare Part B [facility] [id number] Karina Wilson Self 05/31/2013 - Unknown 2 - [employer] [facility] [employer] [id number] Karina Wilson Self 10/31/19 21 - Unknown Clinical Notes Includes: Signed Clinical Notes starting from 10/14/2022 * Progress note Date Encounter Last Documented by 05/08/2024 Follow Up Last documented on 05/09/2024; 3:41 PM, Pernell Fitzgerald MD; [facility], [facility] Active Problems & Conditions - Joint Pain in the Left Hip Chief Complaint The Chief Complaint is: Left hip pain. Referred Here Referred by pcp. History of Present Illness Karina Wilson is a 78 year old female. - Allergy list reviewed - Problem list reviewed - Medication list reviewed - - Review of medications documented Patient follow up 1 year for left hip replacement she has doing well no complaints except that she does have some neurologic issues and had a brain MRI but never had follow up with a neurologist she would like us to refer her to Neurology for just a general neurologic neurologic exam and review of her MRI findings Current Medication - Amoxicillin-Pot Clavulanate 875-125 MG Oral Tablet 7 days, 0 refills - Atorvastatin Calcium 10 MG Oral Tablet 90 days, 0 refills - Cetirizine HCl 10 MG Oral Capsule Capsule, conventional take as directed 0 days, 0 refills - Donepezil HCl 10 MG Oral Tablet 90 days, 0 refills - FeroSul 325 (65 Fe) MG Oral Tablet 30 days, 0 refills - Levothyroxine Sodium 25 MCG Oral Tablet 90 days, 0 refills - Meloxicam 15 MG Oral Tablet 90 days, 0 refills - metroNIDAZOLE 250 MG Oral Tablet 10 days, 0 refills - Omeprazole 20 MG Oral Capsule Delayed Release Capsule, delayed-release 10 days, 0 refills - Ondansetron 4 MG Oral Tablet Disintegrating 4 days, 0 refills - Sotalol HCl 80 MG Oral Tablet 85 days, 0 refills - Tetracycline HCl 500 MG Oral Capsule Capsule, conventional 10 days, 0 refills - Valsartan-hydroCHLOROthiazide 320-12.5 MG Oral Tablet 90 days, 0 refills - Venlafaxine HCl ER 150 MG Oral Capsule Extended Release 24 Hour Capsule, extended-release 24 hour 90 days, 0 refills - Xarelto 20 MG Oral Tablet 30 days, 0 refills Past Medical/Surgical History Reported: Immunization History: Recent immunization for flu 07/31/2021. No recent immunization for pneumococcal pneumonia. Diagnoses: Heart disease. Irregular Heartbeat Heartburn / Acid Reflux Hypertension. Arthritis. Depression Surgical: - Hysterectomy - History of Gallbladder - Total hip replacement Social History Not a current smoker. Current diet: No recent change in diet. Caffeine use: Caffeine use. Tobacco use: Tobacco non-user. Alcohol: Not using alcohol. Drug Use: Not [...] wheezing. Gastrointestinal: Heartburn. No abdominal pain. No Indigestion, no Peptic Ulcer, no GI Stomach Bleed, and no Ulcers. Acid Reflux. Endocrine: No hot flashes, no muscle weakness, [...] allergic reaction. Physical Findings - Vitals taken 05/08/2024 10:52 am Height 68 in 59 - 78 Weight 154 lbs 4.8 oz 95 - 175 Body Mass Index 23.5 kg/m2 Body Surface Area 1.8 m2 Pain Level 8 Left hip motion is excellent leg lengths are equal she has a normal gait Tests Two views left hip show the implant in good position 12/27/2023 Assessment 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, 2023 Counseling/Education - Tobacco non-user - Use of tobacco assessment performed Plan - Patient screened for future fall risk: documentation of any fall with injury in past year Fall Risk Assessment: This patient has been [...] therapy has been discussed with the patient. Three-view x-ray of the left hip shows good alignment of implants no problems patient will be referred to Neurology for interpretation of her MRI brain results in overall neurologic exam screening exam we will see her back every 5 years for routine surveillance x-rays of the hip or sooner if needed Notes This dictation was done with voice recognition software and may contain errors and omissions. Practice Management Use of tobacco assessment performed and patient screened for future fall risk documentation of any fall with injury in past year Review of medications documented. Care Team - HIRAM PIERRE MD - [employer] - Luh Sesay PA-C
--- OUTSIDE RECORDS SUMMARY | 2025-02-15 18:06 | XMS_ITS | Clinical Summary ---
Author Organization [facility] Address [address] [address] Phone Care Team Providers Care Merchant Banker Name Role Phone Lázaro ISIDRO, Luh Unavailable [phone] Lia FIGUEREDO, Pernell Unavailable [phone] IGNACIO FIGUEREDO, HIRAM Unavailable [phone] Reason for Visit and Chief Complaint The Chief Complaint is: left hip pain Problems Includes: Problems addressed during this encounter and other active Problems All Visits Onset Date Resolved Date Provider Condition S tatus Joint Pain in the Left Hip 03/27/2021 Pernell marshall MD Active Last Documented On 8:21AM ; [facility] Plan of Treatment - Patient screened for future fall risk: documentation of any fall with injury in past year - Last Documented On 05/09/2024 3:41PM ; [facility] Fall Risk Assessment: This patient has been [...] with the patient. 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, 2023 - Last Documented On 05/09/2024 3:41PM ; [facility] Medical Equipment - Implanted Devices Includes: Current Devices No Medical Equipment Recorded Medications Includes: Medications discussed during this encounter and other current Medications Current Medications (continue as prescribed) Ondansetron 4 MG Oral Tablet Disintegrating 12/12/2023 Provider: Diagnosis: Last Documented On 4 9:22AM By Albania Darby ; [facility] Sotalol HCl 80 MG Oral Tablet 12/07/2023 Provider: HIRAM PIERRE MD Diagnosis: Last Documented On 4 9:22AM By Albania Darby ; [facility] Levothyroxine Sodium 25 MCG Oral Tablet 12/02/2023 Coni mitchell: HIRAM PIERRE MD Diagnosis: Last Documented On 4 9:22AM By Albania Darby ; [facility] Valsartan-hydroCHLOROthiazid e 320-12.5 MG Oral Tablet 12/02/2023 Provider: HIRAM PIERRE MD Diagnosis: Last Documented On 4 9:22AM By Albania Darby ; [facility] Venlafaxine HCl ER 150 MG Or al Capsule Extended Release 24 Hour 12/02/2023 Provider: HIRAM PIERRE MD Diagnosis: Last Documented On 4 9:22AM By Albania Darby ; [facility] Amoxicillin-Pot Clavulanate 875-125 MG Oral Tablet Provider: Diagnosis: Last Documented On 4 9:22AM By Albania Darby ; [facility] Cetirizine HCl 10 MG Oral Capsule 03/27/2021 Provide r: Diagnosis: Last Documented On 1 9:12AM By Ami Dickerson ; [facility] Tetracycline HCl 500 MG Oral Capsule 01/22/2021 Prov ider: CARLA RUIZ II, MD Diagnosis: Last Documented On 1 8:45AM By Pam Valencia ; [facility] Omeprazole 20 MG Oral Capsul e Delayed Release 01/22/2021 Provider: CARLA RUIZ II, MD Diagnosis: Last Documented On 1 8:45AM By Pam Valencia ; [facility] metroNIDAZOLE 250 MG Oral Tablet 01/22/2021 Provider : CARLA RUIZ II, MD Diagnosis: Last Documented On 1 8:45AM By Pam Valencia ; [facility] FeroSul 325 (65 Fe) MG Oral Tablet 12/22/2020 Provid er: Diagnosis: Last Documented On 1 8:45AM By Pam Valencia ; [facility] Xarelto 20 MG Oral Tablet 12/08/2020 Provider: Diagnosis: Last Documented On 1 8:45AM By Pam Valencia ; [facility] Donepezil HCl 10 MG Oral Tablet 11/13/2020 Provider: TONY CARRERA MD (N) Diagnosis: Last Documented On 1 8:45AM By Pam Valencia ; [facility] Meloxicam 15 MG Oral Tablet 09/06/2020 Provider: Diagnosis: Last Documented On 1 9:12AM By Ami Dickerson ; [facility] Atorvastatin Calcium 10 MG Oral Tablet 06/06/2020 Pr ovider: Diagnosis: Last Documented On 1 9:12AM By Ami Dickerson ; [facility] Past Medications on file oxyCODONE HCl 5 MG Oral Tablet 06/28/2023 - 07/03/2023 Provider: Pernell Fitzgerald MD Diagnosis: 1-2 p o q 6-8h for post op pain Last Documented On 3 8:44AM By Pernell Fitzgerald ; [facility] Meloxicam 15 MG Oral Tablet 06/28/2023 - 07/28/2023 Pr ovider: Pernell Fitzgerald MD Diagnosis: once a day Last Documented On 3 8:44AM By Pernell Fitzgerald ; [facility] Cefadroxil 500 MG Oral Capsule 06/28/2023 - 07/01/2023 Provider: Pernell Fitzgerald MD Diagnosis: twice a day Last Documented On 3 8:44AM By Pernell Fitzgerald ; [facility] traMADol HCl 50 MG Oral Tablet 06/28/2023 - 07/13/2023 Provider: Pernell Fitzgerald MD Diagnosis: 1-2 p o q 6-8h for breakthrough post op pain Last Documented On 3 8:44AM By Pernell Fitzgerald ; [facility] Acetaminophen 500 MG Oral Tablet 06/28/2023 - 07/28/20 23 Provider: Pernell Fitzgerald MD Diagnosis: 2 three times a day , AFTER SURGERY Last Documented On 3 8:29AM By Pernell Fitzgerald ; [facility] Colace 100 MG Oral Capsule 06/28/2023 - 07/28/2023 Pro vider: Pernell Fitzgerald MD Diagnosis: 1-2 tabs daily as needed, AFTER SURGERY Last Documented On 3 8:44AM By Pernell Fitzgerald ; [facility] Ondansetron HCl 4 MG Oral Tablet 06/28/2023 - 07/12/20 23 Provider: Pernell Fitzgerald MD Diagnosis: 1-2 p o q 6-8h as needed for nausea Last Documented On 3 8:44AM By Pernell Fitzgerald ; [facility] Mupirocin 2% External Ointment 06/23/2023 - 06/28/2023 Provider: Pernell Fitzgerald MD Diagnosis: as directed Apply to each no stril with a q tip once a day for 5 days prior to surgery Last Documented On 3 3:24PM By Laurie Pablo ; [facility] Mupirocin 2% External Ointment 06/08/2023 - 06/13/2023 Provider: Pernell Fitzgerald MD Diagnosis: as directed Apply to each no stril with a q tip once a day for 5 days prior to surgery Last Documented On 3 1:53PM By Laurie Pablo ; [facility] Cefadroxil 500 MG Oral Capsule 09/17/2021 - 09/20/2021 Provider: Pernell Fitzgerald MD Diagnosis: twice a day Last Documented On 1 2:48PM By Haley Allen ; [facility] Colace 100 MG Oral Capsule 09/17/2021 - 10/17/2021 Pro vider: Pernell Fitzgerald MD Diagnosis: 1-2 tablets daily, as needed, AFTER SURGERY Last Documented On 1 2:48PM By Haley Allen ; [facility] Zofran 4 MG Oral Tablet 09/17/2021 - 10/17/2021 Provid er: Pernell Fitzgerald MD Diagnosis: take 1 tablet every 6-8hrs for nausea, AFTER ZAIDA ANA Last Documented On 1 2:49PM By Haley Allen ; [facility] oxyCODONE HCl 5 MG Oral Tablet 09/17/2021 - 10/17/2021 Provider: Pernell Fitzgerald MD Diagnosis: take 1-2 tablets every 4-6hrs for post op pain Last Documented On 1 3:02PM By Pernell Fitzgerald ; [facility] Ultram 50 MG Oral Tablet 09/17/2021 - 10/17/2021 Provi fausto: Pernell Fitzgerald MD Diagnosis: 1-2 tablets every 6-8 hours for breakthrough pos t op pain Last Documented On 1 3:02PM By Pernell Fitzgerald ; [facility] Aspirin Adult Low Strength 8 1 MG Oral Tablet Delayed Release 09/17/2021 - 11/01/2021 Provider: Pernell Fitzgerald MD Diagnosis: twice a day Last Documented On 1 2:47PM By Haley Allen ; [facility] Acetaminophen 500 MG Oral Tablet 09/17/2021 - 10/17/20 21 Provider: Pernell Fitzgerald MD Diagnosis: take 2 tablets 3 times daily, AFTER SURGERY Last Documented On 1 2:47PM By Haley Allen ; [facility] oxyCODONE HCl 5 MG Oral Tablet 09/14/2021 - 10/14/2021 Provider: Pernell Fitzgerald MD Diagnosis: take 1-2 tablets every 4-6hrs for post op pain Last Documented On 1 4:52PM By Pernell Fitzgerald ; [facility] Ultram 50 MG Oral Tablet 07/31/2021 - 08/30/2021 Provi fasuto: Pernell Fitzgerald MD Diagnosis: 1-2 po q6h prn pain Last Documented On 1 2:44PM By Pernell Fitzgerald ; [facility] Ultram 50 MG Oral Tablet 06/02/2021 - 07/02/2021 Provi fausto: Pernell Fitzgerald MD Diagnosis: 1-2 po q6h prn pain Last Documented On 1 12:40PM By Pernell Fitzgerald ; [facility] Medications Administered Includes: Administered Medications from this encounter No Administered Medications Recorded Vital Signs Includes: Vital Signs from this encounter Vital Name 05/08/2024 10:52A Height (in) 68 Weight (lb) 154.3 Body Mass Index 23.5 Body Surface Area 1.8 Pain Level 8 Last Documented: On 05/08/2024 10:53A M ; [facility] Results Includes: Results discussed during this encounter No Results Recorded For Specified Dates History of Present Illness Includes: History of Present Illness from this encounter LILLI Wilson is a 78 year old female. [...] exam and review of her MRI findings Social History Description Last Updated Tobacco non-user 12/27/2023 Last Documented On 4 10:44AM ; [facility] Caffeine use 12/21/2022 Last Documented On 4 10:44AM ; [facility] Not exercising regularly 12/21/2022 Last Documented On 4 10:44AM ; [facility] No recent change in diet 03/27/2021 Last Documented On 4 10:44AM ; [facility] Not a current smoker. 03/27/2021 Last Documented On 4 10:44AM ; [facility] Not using alcohol 03/27/2021 Last Documented On 4 10:44AM ; [facility] Not using drugs 03/27/2021 Last Documented On 4 10:44AM ; [facility] Smoking Status Unknown Procedures and Surgical History Includes: Procedures from this encounter Procedures Code Diagnosis Performing Provider Service Location Service Date X-RAY EXAM OF KNEE 1 OR 2 VIEWS (RIGHT) 88515 Unilateral primary osteoarthritis, right knee Pernell Fitzgerald MD [facility] 05/08/2024 Last Documented On 4 4:26PM ; [facility] use of tobacco assessment performed 1000F Last Documented On 4 10:44AM ; [facility] patient screened for future fall risk: documentation of any fall with injury in past year 1100F Last Documented On 4 10:44AM ; [facility] review of medications documented 1160F Last Documented On 4 10:44AM ; [facility] Surgical History Last Updated History of History of Gallbladder 2022 Last Documented On 4 10:44AM ; [facility] History of hysterectomy 12/21/2022 Last Documented On 4 10:44AM ; [facility] History of total hip replacement 023 Last Documented On 4 10:44AM ; [facility] Medical History Includes: Medical History addressed during this encounter Description Last Updated History of arthritis 12/21/2022 Last Documented On 4 10:44AM ; [facility] History of depression 12/21/2022 Last Documented On 4 10:44AM ; [facility] History of heart disease 12/21/2022 Last Documented On 4 10:44AM ; [facility] History of Heartburn / Acid Reflux 12/21 Last Documented On 4 10:44AM ; [facility] History of Hypertension 12/21/2022 Last Documented On 4 10:44AM ; [facility] History of Irregular Heartbeat 3 Last Documented On 4 10:44AM ; [facility] Recent immunization for flu 07/31/2021 1 12/28/2020 Last Documented On 4 10:44AM ; [facility] No recent immunization for pneumococcal pneumonia 03/27/2021 Last Documented On 4 10:44AM ; [facility] Family History Includes: Family History addressed during this encounter Description Last Updated Diabetes mellitus 12/21/2022 Last Documented On 4 10:44AM ; [facility] Family history of heart disease 12/21/19 23 Last Documented On 4 10:44AM ; [facility] Family history of osteoporosis 3 Last Documented On 4 10:44AM ; [facility] Family history of rheumatoid arthritis 0 12/21/2022 Last Documented On 4 10:44AM ; [facility] Review of Systems Includes: Review of Systems [...] Active Last Documented On 4 10:44AM ; [facility] Note: hyper Encounters Encounter Provider Location Date Check-In Time Check- Out Time Diagnosis Follow Up Pernell Fitzgerald MD [facility] [place] 4 10:03AM 11:14AM Insurance Includes: Active Insurance Policies Plan Name Member ID Group # Subscriber Relationship Effect elena Dates 1 - Medicare Part B [facility] [id number] Karina Wilson Self 05/31/2013 - Unknown 2 - [facility] [employer] [id number] Karina Wilson Self 10/31/19 21 - Unknown Clinical Notes Includes: Clinical Notes from this encounter * Progress note Date Encounter Last Documented by 05/08/2024 Follow Up Last documented on 05/09/2024; 3:41 PM, Pernell Fitzgerald MD; [facility] Active Problems & Conditions - [...] Care Team - HIRAM PIERRE MD - 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
--- OUTSIDE RECORDS SUMMARY | 2025-02-15 18:06 | XMS_ITS | Clinical Summary ---
Author Organization [facility] Address [address] [place] [address] Phone Care Team Providers Care Air Traffic Coordinator Name Role Phone Lázaro ISIDRO, Luh Unavailable [phone] Lia FIGUEREDO, Pernell Unavailable [phone] IGNACIO FIGUEREDO, HIRAM Unavailable [phone] Reason for Visit and Chief Complaint The Chief Complaint is: left hip pain Problems Includes: Problems addressed during this encounter and other active Problems All Visits Onset Date Resolved Date Provider Condition S tatus Joint Pain in the Left Hip 03/27/2021 Pernell marshall MD Active Last Documented On 8:21AM ; [facility] Plan of Treatment Fall Risk [...] with the patient. - Last Documented On 08/09/2023 2:05PM ; [facility] Patient was seen by myself Robert Hayward PA-C. Patient will follow up [address] Ackerman she was scheduled for next week I think we can push it off for a week did offer physical therapy but she does not want to do that. Recommend continue with just conservative care rest and Tylenol. - Last Documented On 08/09/2023 2:05PM ; [facility] Assessments Includes: Assessments from this encounter Findings Left total hip revision - Last Documented On 08/09/2023 2:05PM ; [facility] left hip strain and gastroc strain - Last Documented On 08/09/2023 2:05PM ; [facility] Medical Equipment - Implanted Devices Includes: Current Devices No Medical Equipment Recorded Medications Includes: Medications discussed during this encounter and other current Medications Current Medications (continue as prescribed) Ondansetron 4 MG Oral Tablet Disintegrating 12/12/2023 Provider: Diagnosis: Last Documented On 4 9:22AM By Albania Darby ; [facility] Sotalol HCl 80 MG Oral Tablet 12/07/2023 Provider: HIRAM PIERRE MD Diagnosis: Last Documented On 4 9:22AM By Albania Darby ; [facility] Levothyroxine Sodium 25 MCG Oral Tablet 12/02/2023 Coni mitchell: HIRAM PIERRE MD Diagnosis: Last Documented On 4 9:22AM By Albania Darby ; [facility] Valsartan-hydroCHLOROthiazid e 320-12.5 MG Oral Tablet 12/02/2023 Provider: HIRAM PIERRE MD Diagnosis: Last Documented On 4 9:22AM By Albania Darby ; [facility] Venlafaxine HCl ER 150 MG Or al Capsule Extended Release 24 Hour 12/02/2023 Provider: HIRAM PIERRE MD Diagnosis: Last Documented On 4 9:22AM By Albania Darby ; [facility] Amoxicillin-Pot Clavulanate 875-125 MG Oral Tablet Provider: Diagnosis: Last Documented On 4 9:22AM By Albania Darby ; [facility] Cetirizine HCl 10 MG Oral Capsule 03/27/2021 Provide r: Diagnosis: Last Documented On 1 9:12AM By Ami Dickerson ; [facility] Tetracycline HCl 500 MG Oral Capsule 01/22/2021 Prov ider: CARLA RUIZ II, MD Diagnosis: Last Documented On 1 8:45AM By Pam Valencia ; [facility] Omeprazole 20 MG Oral Capsul e Delayed Release 01/22/2021 Provider: CARLA RUIZ II, MD Diagnosis: Last Documented On 1 8:45AM By Pam Valencia ; [facility] metroNIDAZOLE 250 MG Oral Tablet 01/22/2021 Provider : CARLA RUIZ II, MD Diagnosis: Last Documented On 1 8:45AM By Pam Valencia ; [facility] FeroSul 325 (65 Fe) MG Oral Tablet 12/22/2020 Provid er: Diagnosis: Last Documented On 1 8:45AM By Pam Valencia ; [facility] Xarelto 20 MG Oral Tablet 12/08/2020 Provider: Diagnosis: Last Documented On 8:45AM By Pam Valencia ; [facility] Donepezil HCl 10 MG Oral Tablet 11/13/2020 Provider: TONY CARRERA MD (N) Diagnosis: Last Documented On 8:45AM By Pam Valencia ; [facility] Meloxicam 15 MG Oral Tablet 09/06/2020 Provider: Diagnosis: Last Documented On 1 9:12AM By Ami Dickerson ; [facility] Atorvastatin Calcium 10 MG Oral Tablet 06/06/2020 Pr ovider: Diagnosis: Last Documented On 1 9:12AM By Ami Dickerson ; [facility] Past Medications on file oxyCODONE HCl 5 MG Oral Tablet 06/28/2023 - 07/03/2023 Provider: Pernell Fitzgerald MD Diagnosis: 1-2 p o q 6-8h for post op pain Last Documented On 3 8:44AM By Pernell Fitzgerald ; [facility] Meloxicam 15 MG Oral Tablet 06/28/2023 - 07/28/2023 Pr ovider: Pernell Fitzgerald MD Diagnosis: once a day Last Documented On 3 8:44AM By Pernell Fitzgerald ; [facility] Cefadroxil 500 MG Oral Capsule 06/28/2023 - 07/01/2023 Provider: Pernell Fitzgerald MD Diagnosis: twice a day Last Documented On 3 8:44AM By Pernell Fitzgerald ; [facility] traMADol HCl 50 MG Oral Tablet 06/28/2023 - 07/13/2023 Provider: Pernell Fitzgerald MD Diagnosis: 1-2 p o q 6-8h for breakthrough post op pain Last Documented On 3 8:44AM By Pernell Fitzgerald ; [facility] Acetaminophen 500 MG Oral Tablet 06/28/2023 - 07/28/20 Provider: Pernell Fitzgerald MD Diagnosis: 2 three times a day , AFTER SURGERY Last Documented On 3 8:29AM By Pernell Fitzgerald ; [facility] Colace 100 MG Oral Capsule 06/28/2023 - 07/28/2023 Pro vider: Pernell Fitzgerald MD Diagnosis: 1-2 tabs daily as needed, AFTER SURGERY Last Documented On 3 8:44AM By Pernell Fitzgerald ; [facility] Ondansetron HCl 4 MG Oral Tablet 06/28/2023 - 07/12/20 Provider: Pernell Fitzgerald MD Diagnosis: 1-2 p o q 6-8h as needed for nausea Last Documented On 3 8:44AM By Pernell Fitzgerald ; [facility] Mupirocin 2% External Ointment 06/23/2023 - 06/28/2023 Provider: Pernell Fitzgerald MD Diagnosis: as directed Apply to each no stril with a q tip once a day for 5 days prior to surgery Last Documented On 3 3:24PM By Laurie Pablo ; [facility] Mupirocin 2% External Ointment 06/08/2023 - 06/13/2023 Provider: Pernell Fitzgerald MD Diagnosis: as directed Apply to each no stril with a q tip once a day for 5 days prior to surgery Last Documented On 3 1:53PM By Laurie Palbo ; [facility] Cefadroxil 500 MG Oral Capsule 09/17/2021 - 09/20/2021 Provider: Pernell Fitzgerald MD Diagnosis: twice a day Last Documented On 1 2:48PM By Haley Allen ; [facility] Colace 100 MG Oral Capsule 09/17/2021 - 10/17/2021 Pro vider: Pernell Fitzgerald MD Diagnosis: 1-2 tablets daily, as needed, AFTER SURGERY Last Documented On 1 2:48PM By Haley Allen ; [facility] Zofran 4 MG Oral Tablet 09/17/2021 - 10/17/2021 Provid er: Pernell Fitzgerald MD Diagnosis: take 1 tablet every 6-8hrs for nausea, AFTER ZAIDA ANA Last Documented On 1 2:49PM By Haley Allen ; [facility] oxyCODONE HCl 5 MG Oral Tablet 09/17/2021 - 10/17/2021 Provider: Pernell Fitzgerald MD Diagnosis: take 1-2 tablets every 4-6hrs for post op pain Last Documented On 1 3:02PM By Pernell Fitzgerald ; [facility] Ultram 50 MG Oral Tablet 09/17/2021 - 10/17/2021 Provi fausto: Pernell Fitzgerald MD Diagnosis: 1-2 tablets every 6-8 hours for breakthrough pos t op pain Last Documented On 1 3:02PM By Pernell Fitzgerald ; [facility] Aspirin Adult Low Strength 8 1 MG Oral Tablet Delayed Release 09/17/2021 - 11/01/2021 Provider: Pernell Fitzgerald MD Diagnosis: twice a day Last Documented On 1 2:47PM By Haley Allen ; [facility] Acetaminophen 500 MG Oral Tablet 09/17/2021 - 10/17/20 21 Provider: Pernell Fitzgerald MD Diagnosis: take 2 tablets 3 times daily, AFTER SURGERY Last Documented On 1 2:47PM By Haley Allen ; [facility] oxyCODONE HCl 5 MG Oral Tablet 09/14/2021 - 10/14/2021 Provider: Pernell Fitzgerald MD Diagnosis: take 1-2 tablets every 4-6hrs for post op pain Last Documented On 1 4:52PM By Pernell Fitzgerald ; [facility] Ultram 50 MG Oral Tablet 07/31/2021 - 08/30/2021 Provi fausto: Pernell Fitzgerald MD Diagnosis: 1-2 po q6h prn pain Last Documented On 1 2:44PM By Pernell Fitzgerald ; [facility] Ultram 50 MG Oral Tablet 06/02/2021 - 07/02/2021 Provi fausto: Pernell Fitzgerald MD Diagnosis: 1-2 po q6h prn pain Last Documented On 1 12:40PM By Pernell Fitzgerald ; [facility] Medications Administered Includes: Administered Medications from this encounter No Administered Medications Recorded Vital Signs Includes: Vital Signs from this encounter Vital Name 08/09/2023 01:37P Height (in) 68 Weight (lb) 162 Body Mass Index 24.6 Body Surface Area 1.9 Note: lc Last Documented: On 08/09/2023 1:38PM ; [facility] Results Includes: Results discussed during this encounter No Results Recorded For Specified Dates History of Present Illness Includes: History of Present Illness from this encounter HPI Karina Wilson is a 77 year old female. - Allergy list reviewed - Medication reconciliation performed - Medication list reviewed Patient had a revision total hip 07/01/2023 she was doing well and on Tuesday, August 04, 2023 she slipped at home on some dog urine and hit her left leg a lot in front of her she did not fall on the hip. Since then she is complaining some pain over the left ischial tuberosity pain in the left gastroc she said prior to that she was doing well she has not done any formal physical therapy as she does not want to do that presently. She said she is just walking on her own she is using a walker to walk with Social History Description Last Updated Tobacco non-user 12/27/2023 Last Documented On 3 1:35PM ; [facility] No recent change in diet 12/27/2023 Last Documented On 3 1:35PM ; [facility] Not a current smoker. 12/27/2023 Last Documented On 3 1:35PM ; [facility] Caffeine use 12/21/2022 Last Documented On 3 1:35PM ; [facility] Not exercising regularly 12/21/2022 Last Documented On 3 1:35PM ; [facility] Non-smoker 03/27/2021 Last Documented On 3 1:35PM ; [facility] No recent change in diet 03/27/2021 Last Documented On 3 1:35PM ; [facility] Not a current smoker. 03/27/2021 Last Documented On 3 1:35PM ; [facility] Not using alcohol 03/27/2021 Last Documented On 3 1:35PM ; [facility] Not using drugs 03/27/2021 Last Documented On 3 1:35PM ; [facility] Smoking Status Unknown Procedures and Surgical History Includes: Procedures from this encounter Procedures Code Diagnosis Performing Provider Service L ocation Service Date use of tobacco assessment performed 1000F Last Documented On 3 1:36PM ; [facility] patient screened for future fall risk: documentation of any fall with injury in past year 1100F Last Documented On 3 1:36PM ; [facility] review of medications documented 1160F Last Documented On 3 1:36PM ; [facility] Surgical History Last Updated History of History of Gallbladder 2022 Last Documented On 3 1:35PM ; [facility] History of hysterectomy 12/21/2022 Last Documented On 3 1:35PM ; [facility] History of total hip replacement 023 Last Documented On 3 1:35PM ; [facility] Medical History Includes: Medical History addressed during this encounter Description Last Updated History of arthritis 12/21/2022 Last Documented On 3 1:35PM ; [facility] History of depression 12/21/2022 Last Documented On 3 1:35PM ; [facility] History of heart disease 12/21/2022 Last Documented On 3 1:35PM ; [facility] History of Heartburn / Acid Reflux 12/21 Last Documented On 3 1:35PM ; [facility] History of Hypertension 12/21/2022 Last Documented On 3 1:35PM ; [facility] History of Irregular Heartbeat 3 Last Documented On 3 1:35PM ; [facility] Recent immunization for flu 07/31/2021 1 12/28/2020 Last Documented On 3 1:35PM ; [facility] No recent immunization for pneumococcal pneumonia 03/27/2021 Last Documented On 3 1:35PM ; [facility] Family History Includes: Family History addressed during this encounter Description Last Updated Diabetes mellitus 12/21/2022 Last Documented On 3 1:35PM ; [facility] Family history of heart disease 12/21/19 23 Last Documented On 3 1:35PM ; [facility] Family history of osteoporosis 3 Last Documented On 3 1:35PM ; [facility] Family history of rheumatoid arthritis 0 12/21/2022 Last Documented On 3 1:35PM ; [facility] Review of Systems Includes: Review [...] Active Last Documented On 4 10:44AM ; [facility] Note: hyper Encounters Encounter Provider Location Date Check-In Time Check- Out Time Diagnosis Follow Up Robert Hayward PA-C [facility] 3 1:31PM 2:03PM Insurance Includes: Active Insurance Policies Plan Name Member ID Group # Subscriber Relationship Effect elena Dates 1 - Medicare Part B [facility] [id number] Karina Wilson Self 05/31/2013 - Unknown 2 - [facility] [employer] [id number] Karina Wilson Self 10/31/19 21 - Unknown Clinical Notes Includes: Clinical Notes from this encounter * Progress note Date Encounter Last Documented by 08/09/2023 Follow Up Last documented on 08/09/2023; 2:05 PM, Robert Hayward PA-C; [facility] Active Problems & Conditions - Joint Pain in the Left Hip Chief Complaint The Chief Complaint is: Left hip pain. Referred Here Referred by pcp. History of Present Illness Karina Wilson is a 77 year old female. - Allergy list reviewed - Medication reconciliation performed - Medication list reviewed Patient had a revision total hip 07/01/2023 she was doing well and on Tuesday, August 04, 2023 she slipped at home on some dog urine and hit her left leg a lot in front of her she did not fall on the hip. Since then she is complaining some pain over the left ischial tuberosity pain in the left gastroc she said prior to that she was doing well she has not done any formal physical therapy as she does not want to do that presently. She said she is just walking on her own she is using a walker to walk with Current Medication - Atorvastatin Calcium 10 MG [...] allergic reaction. Physical Findings - Vitals taken 08/09/2023 01:37 pm lc Height 68 in Weight 162 lbs Body Mass Index 24.6 kg/m2 Body Surface Area 1.9 m2 She is tender over the left ischial tuberosity and tender in her left gastroc she is able to do a bilateral toe raise standing holding onto her walker she little bit of pain with left hip range of motion for flexion internal/external rotation left hip was nontender vision look clean dry intact with some scabbing Tests 2 views left hip 08/09/2023 show the implant in good position Assessment Left total hip revision left hip strain and gastroc strain Previous Tests Available previous imaging studies were reviewed Available previous history reviewed Plan Fall Risk Assessment: This patient has [...] Robert Hayward PA-C. Patient will follow up [address] Ackerman she was scheduled for next week I think we can push it off for a week did offer physical therapy but she does not want to do that. Recommend continue with just conservative care rest and Tylenol. Notes This dictation was done with voice recognition software and may contain errors and omissions. Practice Management Use of tobacco assessment performed and patient screened for future fall risk documentation of any fall with injury in past year Review of medications documented. Care Team - HIRAM PIERRE MD - EDUCATION LIAISON - Luh Sesay PA-C
--- OUTSIDE RECORDS SUMMARY | 2025-02-15 18:06 | XMS_ITS | Clinical Summary ---
Author Organization [facility] , [facility] Address [address] [place] [address] Phone Care Team Providers Care Patrol Sergeant Name Role Phone Lázaro ISIDRO, Luh Unavailable [phone] Lia FIGUERDEO, Pernell Unavailable [phone] IGNACIO FIGUEREDO, HIRAM Unavailable [phone] Reason for Visit and Chief Complaint The Chief Complaint is: left hip pain Problems Includes: Problems addressed during this encounter and other active Problems All Visits Onset Date Resolved Date Provider Condition S tatus Joint Pain in the Left Hip 03/27/2021 Pernell marshall MD Active Last Documented On 8:21AM ; [facility] Plan of Treatment Fall Risk Assessment: [...] with the patient. - Last Documented On 12/28/2023 8:48AM ; [facility] Patient was seen by myself Robert Hayward PA-C and Dr Fitzgerald. Patient will follow up 6 months repeat x-rays left hip recommend referral to Neurology for the Alzheimer's evaluation since she is seen 1 before an was diagnosed with that and really did not like that person. In terms of the loss of taste and no appetite the we told her possibly could be related to COVID and could refer to ENT for possible with the taste bud retraining her sister thinks maybe this is part of the Alzheimer's they would prefer to see Neurology 1st before seeing an ENT. 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, 2023 - Last Documented On 12/28/2023 8:48AM ; [facility] Medical Equipment - Implanted Devices Includes: Current Devices No Medical Equipment Recorded Medications Includes: Medications discussed during this encounter and other current Medications Discontinued / Stopped on this date on 09/09/2020 Valsartan-hydroCHLOROthiazide 320-12.5 MG Oral Tablet Provider: Diagnosis: Last Documented On 4 12:06PM By Lissette De ; [facility], [facility] Venlafaxine HCl ER 150 MG Or al Capsule Extended Release 24 Hour Provider: Diagnosis: Last Documented On 4 12:06PM By Lissette De ; [facility], [facility] Sotalol HCl 80 MG Oral Tablet Provider: Diagnosis: Last Documented On 4 12:06PM By Lissette De ; [facility], [facility] Current Medications (continue as prescribed) Ondansetron 4 MG Oral Tablet Disintegrating 12/12/2023 Provider: Diagnosis: Last Documented On 4 9:22AM By Albania Darby ; [facility], [facility] Sotalol HCl 80 MG Oral Tablet 12/07/2023 Provider: HIRAM PIERRE MD Diagnosis: Last Documented On 4 9:22AM By Albania Darby ; [facility], [facility] Levothyroxine Sodium 25 MCG Oral Tablet 12/02/2023 Coni mitchell: HIRAM PIERRE MD Diagnosis: Last Documented On 4 9:22AM By Albania Darby ; [facility] Valsartan-hydroCHLOROthiazid e 320-12.5 MG Oral Tablet 12/02/2023 Provider: HIRAM PIERRE MD Diagnosis: Last Documented On 4 9:22AM By Albania Darby ; [facility], [facility] Venlafaxine HCl ER 150 MG Or al Capsule Extended Release 24 Hour 12/02/2023 Provider: HIRAM PIERRE MD Diagnosis: Last Documented On 4 9:22AM By Albania Darby ; [facility], [facility] Amoxicillin-Pot Clavulanate 875-125 MG Oral Tablet Provider: Diagnosis: Last Documented On 4 9:22AM By Albania Darby ; [facility] Cetirizine HCl 10 MG Oral Capsule 03/27/2021 Provide r: Diagnosis: Last Documented On 1 9:12AM By Ami Dickerson ; [facility] Tetracycline HCl 500 MG Oral Capsule 01/22/2021 Prov ider: CARLA RUIZ II, MD Diagnosis: Last Documented On 1 8:45AM By Pam Valencia ; [facility] Omeprazole 20 MG Oral Capsul e Delayed Release 01/22/2021 Provider: CARLA RUIZ II, MD Diagnosis: Last Documented On 8:45AM By Pam Valencia ; [facility] metroNIDAZOLE 250 MG Oral Tablet 01/22/2021 Provider : CARLA RUIZ II, MD Diagnosis: Last Documented On 1 8:45AM By Pam Valencia ; [facility] FeroSul 325 (65 Fe) MG Oral Tablet 12/22/2020 Provid er: Diagnosis: Last Documented On 1 8:45AM By Pam Valencia ; [facility] Xarelto 20 MG Oral Tablet 12/08/2020 Provider: Diagnosis: Last Documented On 1 8:45AM By Pam Valencia ; [facility] Donepezil HCl 10 MG Oral Tablet 11/13/2020 Provider: TONY CARRERA MD (N) Diagnosis: Last Documented On 1 8:45AM By Pam Valencia ; [facility] Meloxicam 15 MG Oral Tablet 09/06/2020 Provider: Diagnosis: Last Documented On 1 9:12AM By Ami Dickerson ; [facility], [facility] Atorvastatin Calcium 10 MG Oral Tablet 06/06/2020 Pr ovider: Diagnosis: Last Documented On 1 9:12AM By Ami Dickerson ; [facility], [facility] Past Medications on file oxyCODONE HCl 5 MG Oral Tablet 06/28/2023 - 07/03/2023 Provider: ePrnell Fitzgerald MD Diagnosis: 1-2 p o q 6-8h for post op pain Last Documented On 3 8:44AM By Pernell Fitzgerald ; [facility], [facility] Meloxicam 15 MG Oral Tablet 06/28/2023 - 07/28/2023 Pr ovider: Pernell Fitzgerald MD Diagnosis: once a day Last Documented On 3 8:44AM By Pernell Fitzgerald ; [facility], [facility] Cefadroxil 500 MG Oral Capsule 06/28/2023 - 07/01/2023 Provider: Pernell Fitzgerald MD Diagnosis: twice a day Last Documented On 3 8:44AM By Pernell Fitzgerald ; [facility] traMADol HCl 50 MG Oral Tablet 06/28/2023 - 07/13/2023 Provider: Pernell Fitzgerald MD Diagnosis: 1-2 p o q 6-8h for breakthrough post op pain Last Documented On 3 8:44AM By Pernell Fitzgerald ; [facility] Acetaminophen 500 MG Oral Tablet 06/28/2023 - 07/28/20 Provider: Pernell Fitzgerald MD Diagnosis: 2 three times a day , AFTER SURGERY Last Documented On 3 8:29AM By Gimenezshannan Fitzgerald ; [facility], [facility] Colace 100 MG Oral Capsule 06/28/2023 - 07/28/2023 Pro vider: Pernell Fitzgerald MD Diagnosis: 1-2 tabs daily as needed, AFTER SURGERY Last Documented On 3 8:44AM By Pernell Fitzgerald [facility], [facility] Ondansetron HCl 4 MG Oral Tablet 06/28/2023 - 07/12/20 Provider: Pernell Fitzgerald MD Diagnosis: 1-2 p o q 6-8h as needed for nausea Last Documented On 3 8:44AM By Pernell Fitzgerald ; [facility], [facility] Mupirocin 2% External Ointment 06/23/2023 - 06/28/2023 Provider: Pernell Fitzgerald MD Diagnosis: as directed Apply to each no stril with a q tip once a day for 5 days prior to surgery Last Documented On 3 3:24PM By Laurie Pablo ; [facility] Mupirocin 2% External Ointment 06/08/2023 - 06/13/2023 Provider: Pernell Fitzgerald MD Diagnosis: as directed Apply to each no stril with a q tip once a day for 5 days prior to surgery Last Documented On 3 1:53PM By Laurie Pablo ; [facility], [facility] Cefadroxil 500 MG Oral Capsule 09/17/2021 - 09/20/2021 Provider: Pernell Fitzgerald MD Diagnosis: twice a day Last Documented On 1 2:48PM By Haley Allen ; [facility], [facility] Colace 100 MG Oral Capsule 09/17/2021 - 10/17/2021 Pro vider: Pernell Fitzgerald MD Diagnosis: 1-2 tablets daily, as needed, AFTER SURGERY Last Documented On 1 2:48PM By Haley Allen ; [facility], [facility] Zofran 4 MG Oral Tablet 09/17/2021 - 10/17/2021 Provid er: Pernell Fitzgerald MD Diagnosis: take 1 tablet every 6-8hrs for nausea, AFTER ZAIDA ANA Last Documented On 1 2:49PM By Haley Allen ; [facility], [facility] oxyCODONE HCl 5 MG Oral Tablet 09/17/2021 - 10/17/2021 Provider: Pernell Fitzgerald MD Diagnosis: take 1-2 tablets every 4-6hrs for post op pain Last Documented On 1 3:02PM By Pernell Fitzgerald ; [facility], [facility] Ultram 50 MG Oral Tablet 09/17/2021 - 10/17/2021 Provi fausto: Pernell Fitzgerald MD Diagnosis: 1-2 tablets every 6-8 hours for breakthrough pos t op pain Last Documented On 1 3:02PM By Pernell Fitzgerald ; [facility], [facility] Aspirin Adult Low Strength 8 1 MG Oral Tablet Delayed Release 09/17/2021 - 11/01/2021 Provider: Pernell Fitzgerald MD Diagnosis: twice a day Last Documented On 1 2:47PM By Haley Allen ; [facility], [facility] Acetaminophen 500 MG Oral Tablet 09/17/2021 - 10/17/20 21 Provider: Pernell Fitzgerald MD Diagnosis: take 2 tablets 3 times daily, AFTER SURGERY Last Documented On 1 2:47PM By aHley Allen ; [facility], [facility] oxyCODONE HCl 5 MG Oral Tablet 09/14/2021 - 10/14/2021 Provider: Pernell Fitzgerald MD Diagnosis: take 1-2 tablets every 4-6hrs for post op pain Last Documented On 1 4:52PM By Pernell Fitzegrald ; [facility], [facility] Ultram 50 MG Oral Tablet 07/31/2021 - 08/30/2021 Provi fausto: Pernell Fitzgerald MD Diagnosis: 1-2 po q6h prn pain Last Documented On 1 2:44PM By Pernell Fitzgerald ; [facility], [facility] Ultram 50 MG Oral Tablet 06/02/2021 - 07/02/2021 Provi fausto: Pernell Fitzgerald MD Diagnosis: 1-2 po q6h prn pain Last Documented On 1 12:40PM By Pernell Fitzgerald ; [facility], [facility] Medications Administered Includes: Administered Medications from this encounter No Administered Medications Recorded Vital Signs Includes: Vital Signs from this encounter Vital Name 12/27/2023 09:42A Height (in) 68 Weight (lb) 162 Body Mass Index 24.6 Body Surface Area 1.9 Pain Level 4 Note: Last Documented: On 12/27/2023 9:42AM ; [facility], [facility] Results Includes: Results discussed during this encounter No Results Recorded For Specified Dates History of Present Illness Includes: History of Present Illness from this encounter HPI Karina Wilson is a 78 year old female. - Allergy list reviewed - Problem list reviewed - Medication reconciliation performed - Medication list reviewed Follow up her left hip revision for total hip 08/23/2023 she says her hips doing okay. She says she has been knows that she is just has not lost appetite there has not been eating she is lost about 60 lb she is believe she possibly did have COVID but she has not sure she also says she just does can taste things. Her sister who is with her today says that the had seen him previous neurologist in [place] it was diagnosed with Alzheimer's but she is failed to follow back up with that person she really did not connect with her well. Social History Description Last Updated Tobacco non-user 12/27/2023 Last Documented On 4 8:48AM ; [facility] No recent change in diet 12/27/2023 Last Documented On 4 8:48AM ; [facility] Not a current smoker. 12/27/2023 Last Documented On 4 8:48AM ; [facility] Caffeine use 12/21/2022 Last Documented On 4 9:22AM ; [facility] Not exercising regularly 12/21/2022 Last Documented On 4 9:22AM ; [facility] Not using alcohol 03/27/2021 Last Documented On 4 9:22AM ; [facility] Not using drugs 03/27/2021 Last Documented On 4 9:22AM ; [facility] Smoking Status Unknown Procedures and Surgical History Includes: Procedures from this encounter Procedures Code Diagnosis Performing Provider Service L ocation Service Date use of tobacco assessment performed 1000F Last Documented On 4 9:22AM ; [facility] patient screened for future fall risk: documentation of any fall with injury in past year 1100F Last Documented On 4 9:22AM ; [facility] review of medications documented 1160F Last Documented On 4 9:22AM ; [facility] Surgical History Last Updated History of History of Gallbladder 2022 Last Documented On 4 9:22AM ; [facility] History of hysterectomy 12/21/2022 Last Documented On 4 9:22AM ; [facility] History of total hip replacement 023 Last Documented On 4 9:22AM ; [facility] Medical History Includes: Medical History addressed during this encounter Description Last Updated History of arthritis 12/21/2022 Last Documented On 4 9:22AM ; [facility] History of depression 12/21/2022 Last Documented On 4 9:22AM ; [facility] History of heart disease 12/21/2022 Last Documented On 4 9:22AM ; [facility], [facility] History of Heartburn / Acid Reflux 12/21 Last Documented On 4 9:22AM ; [facility], [facility] History of Hypertension 12/21/2022 Last Documented On 4 9:22AM ; [facility], [facility] History of Irregular Heartbeat 3 Last Documented On 4 9:22AM ; [facility], [facility] Recent immunization for flu 07/31/2021 1 12/28/2020 Last Documented On 4 9:22AM ; [facility], [facility] No recent immunization for pneumococcal pneumonia 03/27/2021 Last Documented On 4 9:22AM ; [facility], [facility] Family History Includes: Family History addressed during this encounter Description Last Updated Diabetes mellitus 12/21/2022 Last Documented On 4 9:22AM ; [facility], [facility] Family history of heart disease 12/21/19 23 Last Documented On 4 9:22AM ; [facility], [facility] Family history of osteoporosis 3 Last Documented On 4 9:22AM ; [facility], [facility] Family history of rheumatoid arthritis 0 12/21/2022 Last Documented On 4 9:22AM ; [facility], [facility] Review of Systems Includes: Review of [...] Active Last Documented On 4 10:44AM ; [facility], [facility] Note: hyper Encounters Encounter Provider Location Date Check-In Time Check- Out Time Diagnosis Follow Up Pernell Fitzgerald MD [facility] 4 9:13AM 10:08AM Insurance Includes: Active Insurance Policies Plan Name Member ID Group # Subscriber Relationship Effect elena Dates 1 - Medicare Part B [facility] [id number] Karina Wilson Self 05/31/2013 - Unknown 2 - [facility] [employer] [id number] Karina Wilson Self 10/31/19 21 - Unknown Clinical Notes Includes: Clinical Notes from this encounter * Progress note Date Encounter Last Documented by 12/27/2023 Follow Up Last documented on 12/28/2023; 8:48 AM, Pernell Fitzgerald MD; [facility] Active Problems & Conditions - Joint Pain in the Left Hip Chief Complaint The Chief Complaint is: Left hip pain. Referred Here Referred by pcp. History of Present Illness Karina Wilson is a 78 year old female. - Allergy list reviewed - Problem list reviewed - Medication reconciliation performed - Medication list reviewed Follow up her left hip revision for total hip 08/23/2023 she says her hips doing okay. She says she has been knows that she is just has not lost appetite there has not been eating she is lost about 60 lb she is believe she possibly did have COVID but she has not sure she also says she just does can taste things. Her sister who is with her today says that the had seen him previous neurologist in [facility] [place] it was diagnosed with Alzheimer's but she is failed to follow back up with that person she really did not connect with her well. Current Medication - Amoxicillin-Pot Clavulanate 875-125 MG [...] Delayed Release 10 days, 0 refills - Ondansetron 4 [...] allergic reaction. 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 Patient will follow up 6 months repeat x-rays left hip recommend referral to Neurology for the Alzheimer's evaluation since she is seen 1 before an was diagnosed with that and really did not like that person. In terms of the loss of taste and no appetite the we told her possibly could be related to COVID and could refer to ENT for possible with the taste bud retraining her sister thinks maybe this is part of the Alzheimer's they would prefer to see Neurology 1st before seeing an ENT. Notes This dictation was done with voice recognition software and may contain errors and omissions. Practice Management Use of tobacco assessment performed and patient screened for future fall risk documentation of any fall with injury in past year Review of medications documented. Care Team - HIRAM PIERRE MD - [employer] - Luh Sesay PA-C
--- NOTE | 2025-02-15 18:09 | ED_ITS ---
Discharge Plan Disposition Patient Disposition: Admitted Clinical Impressions Clinical Impression: Hallucinations, Suicidal intent, Urinary tract infection, Elevated troponin Discharge ED Provider: Ashleigh Wu General Adult HPI <ALEJANDRO Tavarez - Last Filed: 02/15/25 21:40> General Chief complaint: Psychiatric Symptoms Stated complaint: scared of family,wants to harm herself Time Seen by Provider: 02/15/25 18:09 History of Present Illness HPI narrative: Patient presents for evaluation of suicidal ideation. Patient reports that she has had people breaking into her house and stealing things, she has had arguments with her family and feels that they are stealing from me . She cannot elucidate why. Patient is oriented to person place but not the year. She reports feeling pursued by unknown pursuance. Patient also states that she feels like it would be better to just ended all. She has a very specific plan of overdosing on saved up medications. She has not attempted thus far. Patient is agreeable for psychiatric evaluation at the moment voluntarily. She denies current thoughts of homicidal ideations. She denies chest pain shortness of breath fever chills hemoptysis hematochezia melena nausea vomit diarrhea. Related Data Home Medications ?Medication ?Instructions ?Recorded ?Confirmed levothyroxine 25 mcg tablet 25 mcg PO DAILY thyroid 90 days 08/07/20 12/18/24 (Synthroid) #90 tabs meloxicam 15 mg tablet 15 mg PO DAILY Pain 90 days #90 08/07/20 12/18/24 tabs venlafaxine 150 mg 150 mg PO DAILY mood 90 days #90 08/07/20 12/18/24 capsule,extended release 24 hr caps (Effexor XR) valsartan 320 1 tab PO DAILY blood pressure 08/22/20 12/18/24 mg-hydrochlorothiazide 12.5 mg tablet (Diovan HCT) atorvastatin 10 mg tablet (Lipitor) 10 mg PO HS Cholesterol 90 days 11/13/20 12/18/24 #90 tabs rivaroxaban 20 mg tablet (Xarelto) 20 mg PO HS Blood thinner 90 days 11/13/20 12/18/24 #90 tabs acetaminophen 500 mg tablet 500 mg PO Q6H PRN Pain 05/14/21 12/18/24 (Tylenol Extra Strength) sotalol 80 mg tablet (Betapace) 40 mg PO BID bp 12/22/22 12/18/24 Previous Rx's ?Medication ?Instructions ?Recorded sulfamethoxazole 800 1 tab PO BID 5 days #10 tabs 02/15/25 mg-trimethoprim 160 mg tablet (Bactrim DS) Allergies Allergy/AdvReac Type Severity Reaction Status Date / Time venom-honey bee Allergy Intermediate Unknown Verified 12/18/24 09:06 allergy reaction venom-wasp Allergy Intermediate Unknown Verified 12/18/24 09:06 allergy reaction diphenhydramine (From Allergy Unknown HYPER Verified 12/18/24 09:06 BENADRYL) tuberculin, purified protein Allergy Unknown I-HIVES Verified 12/18/24 09:06 deriva (TUBERCULIN, PURIFIED PROTEIN DERIVA) COVID-19 (SARS-CoV-2) Allergy Unknown Verified 12/18/24 09:06 vaccine, olga allergy reaction [facility] <ALEJANDRO Tavarez - Last Filed: 02/15/25 21:40> [facility] Disclaimer: The information contained in this section may have been updated after the patient was seen, as this information can be updated by other users. Medical History (Updated 02/15/25 @ 23:55 by JD Mancia) Thyromegaly Lymphadenopathy History of cataract Palpitations SOB (shortness of breath) on exertion Chest pain Dementia Schizophrenia Hyperlipidemia Sinus bradycardia Osteoarthritis Hypothyroid Hypertension Atrial fibrillation History of anemia Uterine cancer Skin cancer Surgical History Hx of melanoma excision Hx of dilation and curettage History of hysterectomy History of cholecystectomy Family History Other Family history of diabetes mellitus type II Family history of hypertension Family history of myocardial infarction Social History Smoking Status: Never smoker alcohol intake: never substance use type: denies use current occupational status: retired Travel in the last 8 weeks: None household members: none housing: house lives independently: Yes marital status: education level: high school current occupational exposures/hazards: No caffeine: No in current or past relationships, have you been: made to feel afraid do you feel safe at home: Yes victim of physical abuse: No victim of emotional abuse: No victim of sexual abuse: No would you like helpful sources: No Have you lived/traveled outside [place] in past 30 days?: No Contact w/someone who lives/traveled outside US past 30 days?: No Exposure to someone with infectious disease in past 14 days?: No Do you have a fever (greater than 100.4 F or 38 C)?: No Have you tested positive for COVID-19: No Exposed to someone with COVID-19 in past 14 days?: No Do you have a sore throat?: No Do you have a cough?: No Do you have any weakness?: No Do you have any diarrhea?: No Are you experiencing any unusual bleeding?: No Do you have any muscle aches/pain?: No Do you have any abdominal pain?: No Are you experiencing loss of taste or smell?: No Other Medical History Have you received the Flu Vaccine for this season: No Have you received the Pneumonia Vaccine: Yes <ALEJANDRO Tavarez - Last Filed: 02/15/25 21:40> ROS Obtained: Yes Systems reviewed as appropriate & no additional complaints except as documented Physical Exam <ALEJANDRO Tavarez - Last Filed: 02/15/25 21:40> General General appearance: alert and in no apparent distress Respiratory Respiratory exam: Present normal lung sounds bilaterally Cardiovascular Cardiovascular exam: Present regular rate Neurological Exam Neurological exam: Present alert; Absent oriented X3 (Person place but not the year) Medical Decision Making <ALEJANDRO Tavarez - Last Filed: 02/15/25 21:40> Medical Records Medical records reviewed: Yes I reviewed the patient's medical records. Screening: Per USPSTF and CDC recommendations, given the prevalence of disease in our region, it is our hospital?s policy to screen for HIV and viral Hepatitis for all patients aged 18 and over and those with ongoing risk factors. Seth Inquiry Pt receiving controlled substance: No Vital Signs: 02/15/25 17:58 02/15/25 19:00 02/15/25 19:30 Temperature 98.2 F Temperature Source Oral Pulse Rate 74 70 Pulse Rate [Right] 84 Respiratory Rate 19 Blood Pressure 158/104 H 185/101 H Blood Pressure [Right Arm] 168/101 H Blood Pressure Mean [Right Arm] 123 Blood Pressure Source Blood Pressure Source [Right Arm] Automatic Cuff Blood Pressure Position 02 Sat by Pulse Oximetry 98 99 98 Oxygen Delivery Method Room Air 02/15/25 20:00 02/15/25 20:30 02/15/25 21:00 Temperature Temperature Source Pulse Rate 67 65 64 Pulse Rate [Right] Respiratory Rate Blood Pressure 181/100 H 190/102 H 181/88 H Blood Pressure [Right Arm] Blood Pressure Mean [Right Arm] Blood Pressure Source Blood Pressure Source [Right Arm] Blood Pressure Position 02 Sat by Pulse Oximetry 98 98 99 Oxygen Delivery Method 02/15/25 21:31 02/15/25 22:00 02/15/25 22:30 Temperature Temperature Source Pulse Rate 67 61 61 Pulse Rate [Right] Respiratory Rate Blood Pressure 181/100 H 166/90 H 184/104 H Blood Pressure [Right Arm] Blood Pressure Mean [Right Arm] Blood Pressure Source Blood Pressure Source [Right Arm] Blood Pressure Position 02 Sat by Pulse Oximetry 97 98 98 Oxygen Delivery Method 02/15/25 23:34 Temperature 98.2 F Temperature Source Oral Pulse Rate 60 Pulse Rate [Right] Respiratory Rate 20 Blood Pressure 160/90 H Blood Pressure [Right Arm] Blood Pressure Mean [Right Arm] Blood Pressure Source Automatic Cuff Blood Pressure Source [Right Arm] Blood Pressure Position Sitting 02 Sat by Pulse Oximetry Oxygen Delivery Method Room Air Lab Data Lab results reviewed: Yes I reviewed the patient's lab results. Lab Results 02/15/25 18:30: Urine Color Yellow, Urine Appearance Clear, Urine pH 6.0, Ur Specific Clark 1.026, Urine Protein 1+ A, Urine Glucose (UA) Negative, Urine Ketones Trace, Urine Blood Negative, Urine Nitrate Negative, Urine Bilirubin 1+ A, Urine Urobilinogen 0.2, Ur Leukocyte Esterase 1+ A, Urine RBC None, Urine WBC 10-20, Ur Squamous Epith Cells 3-5, Urine Bacteria 4+, Urine Opiates Screen Negative, Urine Methadone Screen Negative, Ur Barbituates Screen Negative, Ur Phencyclidine Scrn Negative, Ur Amphetamines Screen Negative, U Benzodiazepines Scrn Negative, Urine Cocaine Screen Negative, U Marijuana (THC) Screen Negative 02/15/25 19:30: WBC 4.5 L, RBC 4.21, Hgb 12.4, Hct 37.4, MCV 88.8, MCH 29.5, MCHC 33.2, RDW 13.4, Plt Count 134 L, MPV 10.4, Neut % (Auto) 71.9, Lymph % (Auto) 20.2, [place] % (Auto) 6.4, Eos % (Auto) 0.9, Baso % (Auto) 0.4, Neut # (Auto) 3.2, Lymph # (Auto) 0.9, [place] # (Auto) 0.3, Eos # (Auto) 0.0, Baso # (Auto) 0.0, Sodium 140, Potassium 3.6, Chloride 109 H, Carbon Dioxide 29, Anion Gap 5.6, BUN 18 H, Creatinine 0.80, Estimated Creat Clear 51, Estimated GFR 69, Est GFR ( Amer) 84, Glucose 130 H, Calcium 8.9, Magnesium 1.8, Total Bilirubin 0.6, AST 25, ALT 16, Alkaline Phosphatase 64, Troponin I 0.11 H, Total Protein 6.6, Albumin 3.7, Globulin 2.9, Albumin/Globulin Ratio 1.3, TSH 2.78, F ree T4 Index 2.9 L, Thyroxine (T4) 8.0, T3 Uptake 36, Salicylates < 1.0 L, A cetaminophen < 10 L, Plasma/Serum Alcohol < 10 02/15/25 21:30: Troponin I 0.12 H 02/15/25 19:30 02/15/25 19:30 Orders (Tests/Meds): ED MEDICATIONS Generic Name Dose Route Start Last Admin Trade Name Freq PRN Reason Stop Dose Admin Acetaminophen 650 mg 02/15/25 23:14 Acetaminophen 325mg Tab PO 03/17/25 23:13 Q4HP PRN Fever or Mild Pain (1-3) Sodium Chloride 1,000 mls @ 75 mls/hr 02/15/25 23:15 02/15/25 23:50 Sod Chlor 0.9% 1000ml Bag IV 03/17/25 23:14 75 mls/hr .[id number] MONA Administration Ceftriaxone Sodium 2 gm/ 100 mls @ 200 mls/hr 02/15/25 23:30 02/15/25 23:50 Sodium Chloride IV 02/25/25 23:29 200 mls/hr Q24H MONA Administration Ondansetron HCl 4 mg 02/15/25 23:14 Ondansetron 4mg/2ml Vial IV 03/17/25 23:13 Q8HP PRN Nausea Sodium Chloride 10 ml 02/15/25 23:14 Sodium Chloride 0.9% 10ml Flush Syringe IV 03/17/25 23:13 NEEDED PRN Maintain IV Site Discontinued Medications Generic Name Dose Route Start Last Admin Trade Name Josh PRN Reason Stop Dose Admin Trimethoprim/Sulfamethoxazole 1 each 02/15/25 19:44 02/15/25 19:51 Sulfa/Trimethoprim 1 Tablet PO 02/15/25 19:45 1 each ONCE ONE Administration ORDERS Category Date Time Status Consult to Behavioral Health [CONS] Stat Cons 02/15/25 19:18 Active Acetaminophen Stat Lab 02/15/25 19:30 Completed Blood alcohol [Ethyl Alcohol] Stat Lab 02/15/25 19:30 Completed CBC w/Auto Diff [Complete Blood Count Auto Diff] Stat Lab 02/15/25 19:30 Completed CMP [Comprehensive Metabolic Panel] Stat Lab 02/15/25 19:30 Completed Magnesium Stat Lab 02/15/25 19:30 Completed Salicylate Stat Lab 02/15/25 19:30 Completed Thyroid Panel Stat Lab 02/15/25 19:30 Completed Trop I [Troponin I] Stat Lab 02/15/25 19:30 Completed Troponin I Q3H Lab 02/15/25 21:30 Completed Troponin I Q3H Lab 02/16/25 00:30 Ordered UA [Urinalysis and Microscopic] Stat Lab 02/15/25 18:30 Completed UDS [Drug Screen,Urine] Stat Lab 02/15/25 18:30 Completed Urine Culture Stat Micro 02/15/25 18:30 Received Medical Decision Narrative: In summary patient is a 79-year-old female who presents to the emergency department for evaluation of suicidal ideations and hallucinations.. Patient is hemodynamically stable upon arrival, afebrile. Physical exam is remarkable for a well-nourished well-developed 79-year-old female who currently is in no acute distress. Breath sounds clear and equal bilaterally to the bases with adventitious sounds heart sounds S1-S2 regular rate and rhythm with normal sinus rhythm on the bedside monitor abdomen soft nontender no rebound or guarding no rigidity. Patient moves all 4 extremities has no focal neurologic deficits. Patient does however on interview give history of feeling like there are unknown people entering her house and stealing things, changing her locks feels afraid of her family. She does clearly state that she has a plan to harm herself by taking an overdose of saved medications.. Differential diagnosis includes suicidal ideations versus sundowning versus organic brain disease versus occult infection etc. Initial workup will be conducted with twelve-lead EKG urine drug screen Tylenol salicylate level urinalysis. Initial interventions were considered however patient currently has no complaints thus deferred for now. Patient has been placed on one-to-one due to her clear suicidal threat. Initial workup reviewed by me and her hematologic labs significant for a positive for troponin of 0.11 despite no cardiac history and cardiac complaints otherwise they are nonactionable and urinalysis is consistent with a urinary tract infection for which I will treat her with Bactrim with first dose given here. I have contacted Teresa Magallon for mental health evaluation and we await response at 2014. The patient was placed in observation status at 2014. Medical necessity for observational status is suicidal ideation and mental health evaluation and elevated first troponin. The patient was provided serial reevaluations tenuous cardiac monitoring and pulse oximetry. Care transitioned to Dr. Wu at 2200 hrs. while awaiting placement decision and second troponin. Total time in observation was [total time]. <Ashleigh Wu, DO - Last Filed: 02/15/25 23:59> Vital Signs: 02/15/25 17:58 02/15/25 19:00 02/15/25 19:30 Temperature 98.2 F Temperature Source Oral Pulse Rate 74 70 Pulse Rate [Right] 84 Respiratory Rate 19 Blood Pressure 158/104 H 185/101 H Blood Pressure [Right Arm] 168/101 H Blood Pressure Mean [Right Arm] 123 Blood Pressure Source Blood Pressure Source [Right Arm] Automatic Cuff Blood Pressure Position 02 Sat by Pulse Oximetry 98 99 98 Oxygen Delivery Method Room Air 02/15/25 20:00 02/15/25 20:30 02/15/25 21:00 Temperature Temperature Source Pulse Rate 67 65 64 Pulse Rate [Right] Respiratory Rate Blood Pressure 181/100 H 190/102 H 181/88 H Blood Pressure [Right Arm] Blood Pressure Mean [Right Arm] Blood Pressure Source Blood Pressure Source [Right Arm] Blood Pressure Position 02 Sat by Pulse Oximetry 98 98 99 Oxygen Delivery Method 02/15/25 21:31 02/15/25 22:00 02/15/25 22:30 Temperature Temperature Source Pulse Rate 67 61 61 Pulse Rate [Right] Respiratory Rate Blood Pressure 181/100 H 166/90 H 184/104 H Blood Pressure [Right Arm] Blood Pressure Mean [Right Arm] Blood Pressure Source Blood Pressure Source [Right Arm] Blood Pressure Position 02 Sat by Pulse Oximetry 97 98 98 Oxygen Delivery Method 02/15/25 23:34 Temperature 98.2 F Temperature Source Oral Pulse Rate 60 Pulse Rate [Right] Respiratory Rate 20 Blood Pressure 160/90 H Blood Pressure [Right Arm] Blood Pressure Mean [Right Arm] Blood Pressure Source Automatic Cuff Blood Pressure Source [Right Arm] Blood Pressure Position Sitting 02 Sat by Pulse Oximetry Oxygen Delivery Method Room Air Lab Data Lab Results 02/15/25 18:30: Urine Color Yellow, Urine Appearance Clear, Urine pH 6.0, Ur Specific [place] 1.026, Urine Protein 1+ A, Urine Glucose (UA) Negative, Urine Ketones Trace, Urine Blood Negative, Urine Nitrate Negative, Urine Bilirubin 1+ A, Urine Urobilinogen 0.2, Ur Leukocyte Esterase 1+ A, Urine RBC None, Urine WBC 10-20, Ur Squamous Epith Cells 3-5, Urine Bacteria 4+, Urine Opiates Screen Negative, Urine Methadone Screen Negative, Ur Barbituates Screen Negative, Ur Phencyclidine Scrn Negative, Ur Amphetamines Screen Negative, U Benzodiazepines Scrn Negative, Urine Cocaine Screen Negative, U Marijuana (THC) Screen Negative 02/15/25 19:30: WBC 4.5 L, RBC 4.21, Hgb 12.4, Hct 37.4, MCV 88.8, MCH 29.5, MCHC 33.2, RDW 13.4, Plt Count 134 L, MPV 10.4, Neut % (Auto) 71.9, Lymph % (Auto) 20.2, [place] % (Auto) 6.4, Eos % (Auto) 0.9, Baso % (Auto) 0.4, Neut # (Auto) 3.2, Lymph # (Auto) 0.9, [place] # (Auto) 0.3, Eos # (Auto) 0.0, Baso # (Auto) 0.0, Sodium 140, Potassium 3.6, Chloride 109 H, Carbon Dioxide 29, Anion Gap 5.6, BUN 18 H, Creatinine 0.80, Estimated Creat Clear 51, Estimated GFR 69, Est GFR ( Amer) 84, Glucose 130 H, Calcium 8.9, Magnesium 1.8, Total Bilirubin 0.6, AST 25, ALT 16, Alkaline Phosphatase 64, Troponin I 0.11 H, Total Protein 6.6, Albumin 3.7, Globulin 2.9, Albumin/Globulin Ratio 1.3, TSH 2.78, F ree T4 Index 2.9 L, Thyroxine (T4) 8.0, T3 Uptake 36, Salicylates < 1.0 L, A cetaminophen < 10 L, Plasma/Serum Alcohol < 10 02/15/25 21:30: Troponin I 0.12 H Orders (Tests/Meds): ED MEDICATIONS Generic Name Dose Route Start Last Admin Trade Name Haoq PRN Reason Stop Dose Admin Acetaminophen 650 mg 02/15/25 23:14 Acetaminophen 325mg Tab PO 03/17/25 23:13 Q4HP PRN Fever or Mild Pain (1-3) Sodium Chloride 1,000 mls @ 75 mls/hr 02/15/25 23:15 02/15/25 23:50 Sod Chlor 0.9% 1000ml Bag IV 03/17/25 23:14 75 mls/hr .[id number] MONA Administration Ceftriaxone Sodium 2 gm/ 100 mls @ 200 mls/hr 02/15/25 23:30 02/15/25 23:50 Sodium Chloride IV 02/25/25 23:29 200 mls/hr Q24H MONA Administration Ondansetron HCl 4 mg 02/15/25 23:14 Ondansetron 4mg/2ml Vial IV 03/17/25 23:13 Q8HP PRN Nausea Sodium Chloride 10 ml 02/15/25 23:14 Sodium Chloride 0.9% 10ml Flush Syringe IV 03/17/25 23:13 NEEDED PRN Maintain IV Site Discontinued Medications Generic Name Dose Route Start Last Admin Trade Name Josh PRN Reason Stop Dose Admin Trimethoprim/Sulfamethoxazole 1 each 02/15/25 19:44 02/15/25 19:51 Sulfa/Trimethoprim 1 Tablet PO 02/15/25 19:45 1 each ONCE ONE Administration ORDERS Category Date Time Status Consult to Behavioral Health [CONS] Stat Cons 02/15/25 19:18 Active Acetaminophen Stat Lab 02/15/25 19:30 Completed Blood alcohol [Ethyl Alcohol] Stat Lab 02/15/25 19:30 Completed CBC w/Auto Diff [Complete Blood Count Auto Diff] Stat Lab 02/15/25 19:30 Completed CMP [Comprehensive Metabolic Panel] Stat Lab 02/15/25 19:30 Completed Magnesium Stat Lab 02/15/25 19:30 Completed Salicylate Stat Lab 02/15/25 19:30 Completed Thyroid Panel Stat Lab 02/15/25 19:30 Completed Trop I [Troponin I] Stat Lab 02/15/25 19:30 Completed Troponin I Q3H Lab 02/15/25 21:30 Completed Troponin I Q3H Lab 02/16/25 00:30 Ordered UA [Urinalysis and Microscopic] Stat Lab 02/15/25 18:30 Completed UDS [Drug Screen,Urine] Stat Lab 02/15/25 18:30 Completed Urine Culture Stat Micro 02/15/25 18:30 Received ECG Data Tracing #1: I reviewed this ECG and interpreted as documented below: Normal sinus rhythm with ventricular to [address] changes concerning for STEMI. Normal axis and intervals ECG initial impression date: 02/15/25 ECG initial impression time: 18:48 Medical Decision Narrative: In summary patient is a 79-year-old female who presents to the emergency department for evaluation of suicidal ideations and hallucinations.. Patient is hemodynamically stable upon arrival, afebrile. Physical exam is remarkable for a well-nourished well-developed 79-year-old female who currently is in no acute distress. Breath sounds clear and equal bilaterally to the bases with adventitious sounds heart sounds S1-S2 regular rate and rhythm with normal sinus rhythm on the bedside monitor abdomen soft nontender no rebound or guarding no rigidity. Patient moves all 4 extremities has no focal neurologic deficits. Patient does however on interview give history of feeling like there are unknown people entering her house and stealing things, changing her locks feels afraid of her family. She does clearly state that she has a plan to harm herself by taking an overdose of saved medications.. Differential diagnosis includes suicidal ideations versus sundowning versus organic brain disease versus occult infection etc. Initial workup will be conducted with twelve-lead EKG urine drug screen Tylenol salicylate level urinalysis. Initial interventions were considered however patient currently has no complaints thus deferred for now. Patient has been placed on one-to-one due to her clear suicidal threat. Initial workup reviewed by me and her hematologic labs significant for a positive for troponin of 0.11 despite no cardiac history and cardiac complaints otherwise they are nonactionable and urinalysis is consistent with a urinary tract infection for which I will treat her with Bactrim with first dose given here. I have contacted Teresa Magallon for mental health evaluation and we await response at 2014. The patient was placed in observation status at 2014. Medical necessity for observational status is suicidal ideation and mental health evaluation and elevated first troponin. The patient was provided serial reevaluations tenuous cardiac monitoring and pulse oximetry. Care transitioned to Dr. Wu at 2200 hrs. while awaiting placement decision and second troponin. DO Bryce: I was consulted by the LOC, and we discussed the complexity of the problems being addressed. I approved the treatment and management plan for this patient's care in the emergency department, thus performing a substantive portion of the medical decision making. Patient has UTI and elevated troponins concerning for metabolic cause of her psychiatric disturbance. She does have baseline schizophrenia. I had interactive discussions with Teresa Magallon as well as with Dr. Hart and [facility] psychiatry provider, however patient is not appropriate for psychiatric inpatient evaluation at this time until she is medically cleared. Given this, I called PCP Dr. Batista and had interactive discussion who advised that the patient should be admitted to the hospitalist for assessment. Given this, had an interactive discussion with the hospitalist who admitted the patient in stable condition for further evaluation and management. Ashleigh Wu DO total time in observation was 1 hour. Critical Care <ALEJANDRO Tavarez - Last Filed: 02/15/25 21:40> Critical Care Time Critical Care Time: No <Ashleigh Wu DO - Last Filed: 02/15/25 23:59> Critical Care Time Critical Care Time: Yes Attestation: On 02/15/25, the high probability of a clinically significant, sudden or life threatening deterioration of the following system(s) required my full and direct attention, intervention and personal management. The time I documented below is in addition to time spent performing reported procedures but includes the following listed in this critical care notation. Total Time Total Critical Care Time: 35
[2025-02-15 18:40] LABS: Microscopic, Urine URINE MICROSCOPIC (MICROSCOPIC)
[2025-02-15 18:43] LABS: Appearance,Urine CLEAR (Clear); Blood, Urine Negative (Negative); Color,Urine YELLOW (Yellow); Glucose,Urine (UA) Negative (Negative); Ketones,Urine TRACE (Negative); Leukocyte Esterase,Urine 1+ (Negative); Nitrate,Urine Negative (Negative); Protein,Urine 1+ (Negative); Urobilinogen,Urine 0.2 EU/dl (0.2)
[2025-02-15 18:48] LABS: Bilirubin,Urine 1+ (Negative); Specific Gravity, Urine 1.026 (1.005-1.030)
[2025-02-15 18:55] LABS: Amphetamine/Metha Screen,Urine Negative ng/ml (<1000)
[2025-02-15 18:56] LABS: Barbiturates Screen,Urine Negative ng/ml (<200); Benzodiazepines Screen,Urine Negative ng/ml (<200)
[2025-02-15 18:58] LABS: Cannabinoid Screen,Urine Negative ng/ml (<50); Cocaine Screen,Urine Negative ng/ml (<300)
[2025-02-15 18:59] LABS: Methadone Screen,Urine Negative ng/ml (<300)
[2025-02-15 19:00] LABS: Opiate Screen,Urine Negative ng/ml (<300); Phencyclidine Screen,Urine Negative ng/ml (<25)
--- NOTE | 2025-02-15 19:21 | PC.NURSE ---
doctor is talking to patient about possibly therapy options, patient is willing to learn and is calm (at 1922).
--- NOTE | 2025-02-15 19:23 | PC.NURSE ---
Report received from Louise RN Pt awake and alert Skin pink warm and dry REsp full and easy Sitter at bedside Speech clear and appropriate at times
--- NOTE | 2025-02-15 19:25 | PC.NURSE ---
nurse came in to check on patient and draw labs [id number]
[2025-02-15 19:30] LABS: Bacteria,Urine 4+ /lpf
--- NOTE | 2025-02-15 19:33 | PC.NURSE ---
Pt's sister at bedside
[2025-02-15 19:39] LABS: Basophils % 0.4 % (0.1-2.0); Eosinophils % 0.9 % (0.1-12.0); Hematocrit 37.4 % (37.0-47.0); Hemoglobin 12.4 g/dL (12.2-16.2); Lymphocytes # 0.9 K/mm3 (0.7-4.5); Lymphocytes % 20.2 % (10-50); Mean Corpuscular HGB Conc 33.2 g/dL (31.8-35.4); Mean Corpuscular Hemoglobin 29.5 pg (27.0-31.2); Mean Corpuscular Volume 88.8 fl (81-99); Mean Platelet Volume 10.4 fl (7.4-10.4); Monocytes # 0.3 K/mm3 (0.1-1.0); Monocytes % 6.4 % (1.7-9.3); Neutrophils # 3.2 K/mm3 (1.8-7.8); Neutrophils % 71.9 % (37.0-80.0); Nucleated Red Blood Cells # 0 10^3/uL; Nucleated Red Blood Cells % 0 %; Platelet Count 134 K/mm3 (142-424); Red Blood Count 4.21 M/mm3 (4.20-5.40); Red Cell Distribution Width 13.4 % (11.5-17.5); Red Cell Distribution Width-SD 43.8 fL; White Blood Count 4.5 K/mm3 (4.8-10.8)
[2025-02-15 19:41] LABS: Albumin Level 3.7 g/dl (3.5-5.0); Chloride 109 mmol/L (98-107); Potassium 3.6 mmoL/L (3.5-5.1); Sodium 140 mmol/L (136-145)
[2025-02-15 19:43] LABS: Blood Urea Nitrogen 18 mg/dl (7-17); Creatinine Clearance Estimated 51 mL/min (50-200); Estimated Glomerular Filt Rate 69 ml/min (>60); GFR (African American) 84 ML/MIN (>60)
[2025-02-15 19:44] LABS: Alanine Aminotransferase 16 U/L (12-78); Albumin/Globulin Ratio 1.3 (1.1-1.8); Alkaline Phosphatase 64 U/L (38-126); Anion Gap 5.6 mEq/L (5-15); Aspartate Amino Transferase 25 U/L (14-36); Bilirubin,Total 0.6 mg/dl (0.2-1.3); Calcium 8.9 mg/dl (8.4-10.2); Carbon Dioxide 29 mmol/L (22.0-30.0); Globulin 2.9 g/dL (1.3-3.2); Glucose 130 mg/dl (74-100); Magnesium 1.8 mg/dl (1.6-2.3); Total Protein,Serum 6.6 g/dl (6.3-8.2)
[2025-02-15 19:49] LABS: Acetaminophen < 10 ug/ml (10-30); Salicylate < 1.0 mg/dL (2.0-20.0)
[2025-02-15] MEDS: SULFA/TRIMETHOPRIM 1 TABLET 1 EACH PO (19:51)
--- NOTE | 2025-02-15 19:52 | PC.NURSE ---
nurse came back in to reiterate that patient (NS) will be able to talk to therapy later after results come back .Urine sample came back; nurse administered antibiotics before leaving the room [id number].
[2025-02-15 19:56] LABS: Troponin I 0.11 ng/ml (0.00-0.034)
[2025-02-15 20:02] LABS: Ethyl Alcohol < 10 mg/dl (0-10)
[2025-02-15 20:06] LABS: Free Thyroxine Index 2.9 ug/dL (5.93-13.13); Triiodothryronine (T3) Uptake 36 % (23.5-40.5)
[2025-02-15 20:20] LABS: Thyroid Stimulating Hormone 2.78 uIU/mL (0.465-4.68)
--- NOTE | 2025-02-15 20:37 | PC.NURSE ---
[facility] Magall[facility] has been called. Labs and EKG have been faxed.
--- NOTE | 2025-02-15 20:48 | PC.NURSE ---
Pt resting quietly in bed Awaiting psych facility to consult
--- NOTE | 2025-02-15 21:10 | PC.NURSE ---
Pt on the phone for consultation with Teresa fried
--- NOTE | 2025-02-15 21:23 | PC.NURSE ---
patient on the phone with therapy [phone]. patient reports to me that daughter or family wants me gone.
--- NOTE | 2025-02-15 21:36 | PC.NURSE ---
Repeat troponin drawn and sent to lab
--- NOTE | 2025-02-15 21:54 | PC.NURSE ---
transfer center called for Crispin Pretty. Waiting for call back.
[2025-02-15 22:00] LABS: Troponin I 0.12 ng/ml (0.00-0.034)
--- NOTE | 2025-02-15 22:40 | PC.NURSE ---
Pt aware of plans for admission
--- NOTE | 2025-02-15 22:41 | PC.NURSE ---
nurse came in to talk to patient about admission to the hospital. [id number]
--- NOTE | 2025-02-15 22:51 | PC.NURSE ---
CONSTRUCTION PROJECT ADMINISTRATOR came to talk to patient about suicidal thoughts and admission. [id number]
--- NOTE | 2025-02-15 23:06 | PC.NURSE ---
Report called to Rosanna KESSLER Pt transported to inpatient unit via wheelchair.
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
[2025-02-15] MEDS: CEFTRIAXONE SODIUM 2 GM in 0.9 % SODIUM CHLORIDE 100 ML IV (23:50)
[2025-02-15] MEDS: 0.9 % SODIUM CHLORIDE 1000ML 1,000 ML 75 ML IV (23:50)
[2025-02-16] VITALS: BP 190/109; PULSE 64; RESP 18; TEMP 36.8; O2SAT 98
[2025-02-16 00:06] VITALS: BMI 21.4
--- NOTE | 2025-02-16 00:08 | INFXCTL.NOTE ---
patient's blood pressure was high in ER, and elevated on the floor for 00:00 Q4H vitals as well. nurse is aware
[2025-02-16 02:53] LABS: Troponin I 0.11 ng/ml (0.00-0.034)
--- NOTE | 2025-02-16 03:20 | PC.NURSE ---
Ms Karina Wilson was newly admitted this shift on behalf of the following documented diagnoses: UTI, altered mental status, schizophrenia, and depression disorder. Admission assessments and home medication reconciliation were completed by me. PT, OT, and case management consults were ordered per admission criteria. Behavioral health consult ordered by ER ALEJANDRO. Home medications are locked in the [facility]. The patient stated that she lives alone at home with two puppies and a cat. However, she also stated that she has felt quite depressed and isolated from others for as long as she can remember, never felt right, and cries a lot during the night at home. She reported that her sleep pattern has not been very efficient because of this. Patient stated upon assessment that she feels like [I'd] be better off . She also indicated that her relationships with her daughters is strained, and she has had enough of their poor behaviors toward her. She denied any physical harm or verbal abuse from anyone. One-on-one observation was initiated this shift due to suicidal ideation, as well as altered mental status. Patient has not exhibited apparent distress nor any harmful behaviors to herself or staff members this shift; she has remained pleasant. Denies pain, nausea, dizziness. Patient was alert and oriented x4 and seems to be able to recall long-term memories, is very conversational, but is repetitive with her speech. Patient denied any hallucinations (audible or visible) at this time. She reports being quite independent at home, can mow [my] own lawn, but stated that she does have frequent falls. A large bruise was noted on the inner side of her right knee. Other abrasions noted on her upper extremities. Diminished lung sounds were heard upon auscultation; heart sounds and bowel sounds within normal findings. She stated that she has been having urgency/frequency with urination lately. Urine appearance was assessed; it was noted to be cloudy and yellow this shift. Denies dysuria. Patient ambulates with standby assistance in her room/to the bathroom due to a slightly unsteady gait; however, the patient has expressed desires for autonomy and dignity. Normal saline continues to infuse at 75 mL/hr. Ceftriaxone was given per MAR as well. SCDs in place for VTE prophylaxis. Patient stated that she has not had an adequate appetite at home. Crackers were given for a bedtime snack, and she was encouraged to consume them. Patient verbalized understanding of the need for nutritional/fluid intake. Blood pressures have been elevated. At this time, the patient is resting in bed with eyes closed, and respirations are even/unlabored. She has not had any further complaints this shift. Bed alarm on. Call light within reach. One-on-one observation ongoing.
[2025-02-16 04:00] VITALS: BP 135/78; PULSE 55; RESP 18; TEMP 36.6; O2SAT 96; BMI 21.3
--- NOTE | 2025-02-16 06:45 | PC.NURSE ---
phlebotomy has arrived to draw blood for troponin at 0645.
[2025-02-16 07:41] LABS: Basophils % 0.4 % (0.1-2.0); Eosinophils # 0.1 Kmm3 (0.0-0.4); Eosinophils % 1.5 % (0.1-12.0); Hematocrit 34.8 % (37.0-47.0); Hemoglobin 11.5 g/dL (12.2-16.2); Lymphocytes % 20.6 % (10-50); Mean Corpuscular Hemoglobin 29.1 pg (27.0-31.2); Mean Corpuscular Volume 88.1 fl (81-99); Mean Platelet Volume 10.8 fl (7.4-10.4); Monocytes # 0.3 K/mm3 (0.1-1.0); Neutrophils # 3.3 K/mm3 (1.8-7.8); Neutrophils % 71.5 % (37.0-80.0); Nucleated Red Blood Cells # 0 10^3/uL; Nucleated Red Blood Cells % 0 %; Platelet Count 140 K/mm3 (142-424); Red Blood Count 3.95 M/mm3 (4.20-5.40); Red Cell Distribution Width 13.3 % (11.5-17.5); Red Cell Distribution Width-SD 43.3 fL; White Blood Count 4.7 K/mm3 (4.8-10.8)
[2025-02-16 07:55] VITALS: BP 146/60; PULSE 72; RESP 18; TEMP 36.6; O2SAT 97
[2025-02-16 08:02] LABS: Troponin I 0.09 ng/ml (0.00-0.034)
[2025-02-16 08:22] LABS: Chloride 111 mmol/L (98-107); Sodium 140 mmol/L (136-145)
[2025-02-16 08:23] LABS: Potassium 3.4 mmoL/L (3.5-5.1)
[2025-02-16 08:26] LABS: Anion Gap 6.4 mEq/L (5-15); Blood Urea Nitrogen 12 mg/dl (7-17); Calcium 8.4 mg/dl (8.4-10.2); Carbon Dioxide 26 mmol/L (22.0-30.0); Creatinine Clearance Estimated 49 mL/min (50-200); Estimated Glomerular Filt Rate 81 ml/min (>60); GFR (African American) 98 ML/MIN (>60); Glucose 83 mg/dl (74-100)
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
--- NOTE | 2025-02-18 14:49 | EXP.EVENT.NO ---
Urine culture positive for ESBL E. coli UTI sensitive to carbapenems. Case management reached out to patient but no answer. Will try again later today and tomorrow.
--- NOTE | 2025-02-19 13:10 | SW/DCPLANNER ---
Spoke with patient on the phone. Patient stated that she is doing better. Patient stated that she is aware of her upcoming appointments. Patient stated that she has no concerns or questions. Scheduled car a van to get patient and bring her to her appointment. Shreya Perez
== END 2025-02-16 13:40 | disposition home or self-care (01) ==
LOC: ER 22:39 → 2ND 02-16 01:50
PROVIDERS: Nurse Practitioner Acute Care; Physician Assistant; Admitting Provider Internal Medicine Adolescent Medicine; Emergency Provider Emergency Medicine; PCP Family Medicine; Visit Provider Internal Medicine Adolescent Medicine
DX: N39.0 Urinary tract infection, site not specified (principal); F41.9 Anxiety disorder, unspecified; F32.A Depression, unspecified; F20.9 Schizophrenia, unspecified; F39 Unspecified mood [affective] disorder; Z79.01 Long term (current) use of anticoagulants; I48.0 Paroxysmal atrial fibrillation; E03.9 Hypothyroidism, unspecified; I10 Essential (primary) hypertension; Z91.030 Bee allergy status; Z88.7 Allergy status to serum and vaccine; Z88.8 Allergy status to other drugs, medicaments and biological substances; R45.851 Suicidal ideations; G93.41 Metabolic encephalopathy; I21.4 Non-ST elevation (NSTEMI) myocardial infarction
CPT/HCPCS: 36415; 80048; 80053; 80307; 80320; 80329; 81001; 83735; 84436; 84443; 84479; 84484; 85025; 87086; 87088; 87186; 99291; G0378; J0696; J7030

== ENCOUNTER 2025-02-19 13:44 | Outpatient (CLI) | payer MEDICARE, SELFPAY ==
--- OUTSIDE RECORDS SUMMARY | 2025-02-19 13:46 | XMS_ITS | Clinical Summary ---
Author Organization [facility] Address [address] [place] [address] Phone Care Team Providers Care B2B Sales Professional Name Role Phone Lázaro ISIDRO, Luh Unavailable [phone] Lia FIGUEREDO, Pernell Unavailable [phone] IGNACIO FIGUEREDO, HIRAM Unavailable [phone] Reason for Visit and Chief Complaint The Chief Complaint is: Right hip pov Problems Includes: Problems addressed during this encounter and other active Problems All Visits Onset Date Resolved Date Provider Condition S tatus Joint Pain in the Left Hip 03/27/2021 Pernell marshall MD Active Last Documented On 8:21AM ; [facility] Plan of Treatment Fall Risk [...] - Last Documented On 07/27/2023 12:15PM ; [facility] Patient was seen by myself Robert Hayward PA-C. Patient will follow up [address] Fitzgerald patient would like to try outpatient physical therapy we will set her up to do this and then see her back with him in 3 weeks. - Last Documented On 07/27/2023 12:15PM ; [facility] Assessments Includes: Assessments from this encounter Findings Left total hip revision 07/01/2023 - Last Documented On 07/27/2023 12:15PM ; [facility] Medical Equipment - Implanted Devices Includes: Current Devices No Medical Equipment Recorded Medications Includes: Medications discussed during this encounter and other current Medications Current Medications (continue as prescribed) Ondansetron 4 MG Oral Tablet Disintegrating 12/12/2023 Provider: Diagnosis: Last Documented On 4 9:22AM By Albania Darby ; [facility] Sotalol HCl 80 MG Oral Tablet 12/07/2023 Provider: HIRAM PIERRE MD Diagnosis: Last Documented On 4 9:22AM By Albania Darby ; [facility] Levothyroxine Sodium 25 MCG Oral Tablet 12/02/2023 Coni mitchell: HIRAM PIERRE MD Diagnosis: Last Documented On 4 9:22AM By Albania Darby ; [facility] Valsartan-hydroCHLOROthiazid e 320-12.5 MG Oral Tablet 12/02/2023 Provider: HIRAM PIERRE MD Diagnosis: Last Documented On 4 9:22AM By Albania Darby ; [facility] Venlafaxine HCl ER 150 MG Or al Capsule Extended Release 24 Hour 12/02/2023 Provider: HIRAM PIERRE MD Diagnosis: Last Documented On 4 9:22AM By Albania Darby ; [facility] Amoxicillin-Pot Clavulanate 875-125 MG Oral Tablet Provider: Diagnosis: Last Documented On 4 9:22AM By Albania Darby ; [facility] Cetirizine HCl 10 MG Oral Capsule 03/27/2021 Provide r: Diagnosis: Last Documented On 1 9:12AM By Ami Dickerson ; [facility] Tetracycline HCl 500 MG Oral Capsule 01/22/2021 Prov ider: CARLA RUIZ II, MD Diagnosis: Last Documented On 1 8:45AM By Pam Valencia ; [facility] Omeprazole 20 MG Oral Capsul e Delayed Release 01/22/2021 Provider: CARLA RUIZ II, MD Diagnosis: Last Documented On 1 8:45AM By Pam Valencia ; [facility] metroNIDAZOLE 250 MG Oral Tablet 01/22/2021 Provider : CARLA RUIZ II, MD Diagnosis: Last Documented On 1 8:45AM By Pam Valencia ; [facility] FeroSul 325 (65 Fe) MG Oral Tablet 12/22/2020 Provid er: Diagnosis: Last Documented On 1 8:45AM By Pam Valencia ; [facility] Xarelto 20 MG Oral Tablet 12/08/2020 Provider: Diagnosis: Last Documented On 1 8:45AM By Pam Valencia ; [facility] Donepezil HCl 10 MG Oral Tablet 11/13/2020 Provider: TONY CARRERA MD (N) Diagnosis: Last Documented On 1 8:45AM By Pam Valencia ; [facility] Meloxicam 15 MG Oral Tablet 09/06/2020 Provider: Diagnosis: Last Documented On 1 9:12AM By Ami Dickerson ; [facility] Atorvastatin Calcium 10 MG Oral Tablet 06/06/2020 Pr ovider: Diagnosis: Last Documented On 1 9:12AM By Ami Dickerson ; [facility] Past Medications on file oxyCODONE HCl 5 MG Oral Tablet 06/28/2023 - 07/03/2023 Provider: Pernell Fitzgerald MD Diagnosis: 1-2 p o q 6-8h for post op pain Last Documented On 3 8:44AM By Pernell Fitzgerald ; [facility] Meloxicam 15 MG Oral Tablet 06/28/2023 - 07/28/2023 Pr ovider: Pernell Fitzgerald MD Diagnosis: once a day Last Documented On 3 8:44AM By Pernell Fitzgerald ; [facility] Cefadroxil 500 MG Oral Capsule 06/28/2023 - 07/01/2023 Provider: Pernell Fitzgerald MD Diagnosis: twice a day Last Documented On 3 8:44AM By Pernell Fitzgerald ; [facility] traMADol HCl 50 MG Oral Tablet 06/28/2023 - 07/13/2023 Provider: Pernell Fitzgerald MD Diagnosis: 1-2 p o q 6-8h for breakthrough post op pain Last Documented On 3 8:44AM By Pernell Fitzgerald ; [facility] Acetaminophen 500 MG Oral Tablet 06/28/2023 - 07/28/20 Provider: Pernell Fitzgerald MD Diagnosis: 2 three times a day , AFTER SURGERY Last Documented On 3 8:29AM By Pernell Fitzgerald ; [facility] Colace 100 MG Oral Capsule 06/28/2023 - 07/28/2023 Pro vider: Pernell Fitzgerald MD Diagnosis: 1-2 tabs daily as needed, AFTER SURGERY Last Documented On 3 8:44AM By Pernell Fitzgerald ; [facility] Ondansetron HCl 4 MG Oral Tablet 06/28/2023 - 07/12/20 Provider: Pernell Fitzgerald MD Diagnosis: 1-2 p o q 6-8h as needed for nausea Last Documented On 3 8:44AM By Pernell Fitzgerald ; [facility] Mupirocin 2% External Ointment 06/23/2023 - 06/28/2023 Provider: Pernell Fitzgerald MD Diagnosis: as directed Apply to each no stril with a q tip once a day for 5 days prior to surgery Last Documented On 3 3:24PM By Laurie Pablo ; [facility] Mupirocin 2% External Ointment 06/08/2023 - 06/13/2023 Provider: Pernell Fitzgerald MD Diagnosis: as directed Apply to each no stril with a q tip once a day for 5 days prior to surgery Last Documented On 3 1:53PM By Laurie Pablo ; [facility] Cefadroxil 500 MG Oral Capsule 09/17/2021 - 09/20/2021 Provider: Pernell Fitzgerald MD Diagnosis: twice a day Last Documented On 1 2:48PM By Haley Allen ; [facility] Colace 100 MG Oral Capsule 09/17/2021 - 10/17/2021 Pro vider: Pernell Fitzgerald MD Diagnosis: 1-2 tablets daily, as needed, AFTER SURGERY Last Documented On 1 2:48PM By Haley Allen ; [facility] Zofran 4 MG Oral Tablet 09/17/2021 - 10/17/2021 Provid er: Pernell Fitzgerald MD Diagnosis: take 1 tablet every 6-8hrs for nausea, AFTER ZAIDA ANA Last Documented On 1 2:49PM By Haley Allen ; [facility] oxyCODONE HCl 5 MG Oral Tablet 09/17/2021 - 10/17/2021 Provider: Pernell Fitzgerald MD Diagnosis: take 1-2 tablets every 4-6hrs for post op pain Last Documented On 1 3:02PM By Pernell Fitzgerald ; [facility] Ultram 50 MG Oral Tablet 09/17/2021 - 10/17/2021 Provi fausto: Pernell Fitzgerald MD Diagnosis: 1-2 tablets every 6-8 hours for breakthrough pos t op pain Last Documented On 1 3:02PM By Pernell Fitzgerald ; [facility] Aspirin Adult Low Strength 8 1 MG Oral Tablet Delayed Release 09/17/2021 - 11/01/2021 Provider: Pernell Fitzgerald MD Diagnosis: twice a day Last Documented On 1 2:47PM By Haley Allen ; [facility] Acetaminophen 500 MG Oral Tablet 09/17/2021 - 10/17/20 21 Provider: Pernell Fitzgerald MD Diagnosis: take 2 tablets 3 times daily, AFTER SURGERY Last Documented On 1 2:47PM By Haley Allen ; [facility] oxyCODONE HCl 5 MG Oral Tablet 09/14/2021 - 10/14/2021 Provider: Pernell Fitzgerald MD Diagnosis: take 1-2 tablets every 4-6hrs for post op pain Last Documented On 1 4:52PM By Pernell Fitzgerald ; [facility] Ultram 50 MG Oral Tablet 07/31/2021 - 08/30/2021 Provi fausto: Pernell Fitzgerald MD Diagnosis: 1-2 po q6h prn pain Last Documented On 1 2:44PM By Pernell Fitzgerald ; [facility] Ultram 50 MG Oral Tablet 06/02/2021 - 07/02/2021 Provi fausto: Pernell Fitzgerald MD Diagnosis: 1-2 po q6h prn pain Last Documented On 1 12:40PM By Pernell Fitzgerald ; [facility] Medications Administered Includes: Administered Medications from [...] 12/27/2023 Last Documented On 3 2:26PM ; [facility] No recent change in diet 12/27/2023 Last Documented On 3 2:26PM ; [facility] Not a current smoker. 12/27/2023 Last Documented On 3 2:26PM ; [facility] Caffeine use 12/21/2022 Last Documented On 3 2:26PM ; [facility] Not exercising regularly 12/21/2022 Last Documented On 3 2:26PM ; [facility] Non-smoker 03/27/2021 Last Documented On 3 2:26PM ; [facility] No recent change in diet 03/27/2021 Last Documented On 3 2:26PM ; [facility] Not a current smoker. 03/27/2021 Last Documented On 3 2:26PM ; [facility] Not using alcohol 03/27/2021 Last Documented On 3 2:26PM ; [facility] Not using drugs 03/27/2021 Last Documented On 3 2:26PM ; [facility] Smoking Status Unknown Procedures and Surgical History Includes: Procedures from this encounter Procedures Code Diagnosis Performing Provider Service L ocation Service Date use of tobacco assessment performed 1000F Last Documented On 3 2:26PM ; [facility], [facility] patient screened for future fall risk: documentation of any fall with injury in past year 1100F Last Documented On 3 2:26PM ; [facility] review of medications documented 1160F Last Documented On 3 2:26PM ; [facility] Surgical History Last Updated History of History of Gallbladder 2022 Last Documented On 3 2:26PM ; [facility], [facility] History of hysterectomy 12/21/2022 Last Documented On 3 2:26PM ; [facility], [facility] History of total hip replacement 023 Last Documented On 3 2:26PM ; [facility] Medical History Includes: Medical History addressed during this encounter Description Last Updated History of arthritis 12/21/2022 Last Documented On 3 2:26PM ; [facility] History of depression 12/21/2022 Last Documented On 3 2:26PM ; [facility] History of heart disease 12/21/2022 Last Documented On 3 2:26PM ; [facility] History of Heartburn / Acid Reflux 12/21 Last Documented On 3 2:26PM ; [facility] History of Hypertension 12/21/2022 Last Documented On 3 2:26PM ; [facility], [facility] History of Irregular Heartbeat 3 Last Documented On 3 2:26PM ; [facility] Recent immunization for flu 07/31/2021 1 12/28/2020 Last Documented On 3 2:26PM ; [facility] No recent immunization for pneumococcal pneumonia 03/27/2021 Last Documented On 3 2:26PM ; [facility] Family History Includes: Family History addressed during this encounter Description Last Updated Diabetes mellitus 12/21/2022 Last Documented On 3 2:26PM ; [facility] Family history of heart disease 12/21/19 23 Last Documented On 3 2:26PM ; [facility] Family history of osteoporosis 3 Last Documented On 3 2:26PM ; [facility] Family history of rheumatoid arthritis 0 12/21/2022 Last Documented On 3 2:26PM ; [facility] Review of Systems Includes: Review of [...] Active Last Documented On 4 10:44AM ; [facility] Note: hyper Encounters Encounter Provider Location Date Check-In Time Check- Out Time Diagnosis Follow Up Robert Hayward PA-C [facility] 3 1:50PM 3:25PM Insurance Includes: Active Insurance Policies Plan Name Member ID Group # Subscriber Relationship Effect elena Dates 1 - Medicare Part B [facility] [id number] Karina Wilson Self 05/31/2013 - Unknown 2 - [facility] [employer] [id number] Karina Wilson Self 10/31/19 21 - Unknown Clinical Notes Includes: Clinical Notes from this encounter * Progress note Date Encounter Last Documented by 07/26/2023 Follow Up Last documented on 07/27/2023; 12:15 PM, Robert Obando; [facility] Active Problems & Conditions - Joint [...] Review of medications documented. Care Team - HIARM PIERRE MD - [employer] - Luh Sesay PA-C
--- OUTSIDE RECORDS SUMMARY | 2025-02-19 13:46 | XMS_ITS | Clinical Summary ---
Author Organization [facility] , [facility] Address [address] [place] [address] Phone Care Team Providers Care Php Engineer Name Role Phone Lázaro ISIDRO, Luh Unavailable [phone] Lia FIGUEREDO, Pernell Unavailable [phone] IGNACIO FIGUEREDO, HIRAM Unavailable [phone] Reason for Visit and Chief Complaint The Chief Complaint is: left hip pain Problems Includes: Problems addressed during this encounter and other active Problems All Visits Onset Date Resolved Date Provider Condition S tatus Joint Pain in the Left Hip 03/27/2021 Pernell marshall MD Active Last Documented On 8:21AM ; [facility] Plan of Treatment Fall Risk [...] - Last Documented On 12/28/2023 8:48AM ; [facility] Patient was seen by myself [...] - Last Documented On 12/28/2023 8:48AM ; [facility], [facility] Assessments Includes: Assessments from this encounter Findings 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, 2023 - Last Documented On 12/28/2023 8:48AM ; [facility], [facility] Medical Equipment - Implanted Devices Includes: Current Devices No Medical Equipment Recorded Medications Includes: Medications discussed during this encounter and other current Medications Discontinued / Stopped on this date on 09/09/2020 Valsartan-hydroCHLOROthiazide 320-12.5 MG Oral Tablet Provider: Diagnosis: Last Documented On 4 12:06PM By Lissette De ; [facility], [facility] Venlafaxine HCl ER 150 MG Or al Capsule Extended Release 24 Hour Provider: Diagnosis: Last Documented On 4 12:06PM By Lissette De ; [facility], [facility] Sotalol HCl 80 MG Oral Tablet Provider: Diagnosis: Last Documented On 4 12:06PM By Lissette De ; [facility], [facility] Current Medications (continue as prescribed) Ondansetron 4 MG Oral Tablet Disintegrating 12/12/2023 Provider: Diagnosis: Last Documented On 4 9:22AM By Albania Darby ; [facility], [facility] Sotalol HCl 80 MG Oral Tablet 12/07/2023 Provider: HIRAM PIERRE MD Diagnosis: Last Documented On 4 9:22AM By Albania Darby ; [facility], [facility] Levothyroxine Sodium 25 MCG Oral Tablet 12/02/2023 Coni mitchell: HIRAM PIERRE MD Diagnosis: Last Documented On 4 9:22AM By Albania Darby ; [facility], [facility] Valsartan-hydroCHLOROthiazid e 320-12.5 MG Oral Tablet 12/02/2023 Provider: HIRAM PIERRE MD Diagnosis: Last Documented On 4 9:22AM By Albania Darby ; [facility], [facility] Venlafaxine HCl ER 150 MG Or al Capsule Extended Release 24 Hour 12/02/2023 Provider: HIRAM PIERRE MD Diagnosis: Last Documented On 4 9:22AM By Albania Darby ; [facility], [facility] Amoxicillin-Pot Clavulanate 875-125 MG Oral Tablet Provider: Diagnosis: Last Documented On 4 9:22AM By Albania Darby ; [facility] Cetirizine HCl 10 MG Oral Capsule 03/27/2021 Provide r: Diagnosis: Last Documented On 1 9:12AM By Ami Dickerson ; [facility] Tetracycline HCl 500 MG Oral Capsule 01/22/2021 Prov ider: CARLA RUIZ II, MD Diagnosis: Last Documented On 1 8:45AM By Pam Valencia ; [facility] Omeprazole 20 MG Oral Capsul e Delayed Release 01/22/2021 Provider: CARLA RUIZ II, MD Diagnosis: Last Documented On 8:45AM By Pam Valencia ; [facility] metroNIDAZOLE 250 MG Oral Tablet 01/22/2021 Provider : CARLA RUIZ II, MD Diagnosis: Last Documented On 1 8:45AM By Pam Valencia ; [facility], [facility] FeroSul 325 (65 Fe) MG Oral Tablet 12/22/2020 Provid er: Diagnosis: Last Documented On 1 8:45AM By Pam Valencia ; [facility], [facility] Xarelto 20 MG Oral Tablet 12/08/2020 Provider: Diagnosis: Last Documented On 1 8:45AM By Pam Valencia ; [facility], [facility] Donepezil HCl 10 MG Oral Tablet 11/13/2020 Provider: TONY CARRERA MD (N) Diagnosis: Last Documented On 1 8:45AM By Pam Valencia ; [facility] Meloxicam 15 MG Oral Tablet 09/06/2020 Provider: Diagnosis: Last Documented On 1 9:12AM By Ami Dickerson ; [facility], [facility] Atorvastatin Calcium 10 MG Oral Tablet 06/06/2020 Pr ovider: Diagnosis: Last Documented On 1 9:12AM By Ami Dickerson ; [facility], [facility] Past Medications on file oxyCODONE HCl 5 MG Oral Tablet 06/28/2023 - 07/03/2023 Provider: Pernell Fitzgerald MD Diagnosis: 1-2 p o q 6-8h for post op pain Last Documented On 3 8:44AM By Pernell Fitzgerald ; [facility], [facility] Meloxicam 15 MG Oral Tablet 06/28/2023 - 07/28/2023 Pr ovider: Pernell Fitzgerald MD Diagnosis: once a day Last Documented On 3 8:44AM By Pernell Fitzgerald ; [facility], [facility] Cefadroxil 500 MG Oral Capsule 06/28/2023 - 07/01/2023 Provider: Pernell Fitzgerald MD Diagnosis: twice a day Last Documented On 3 8:44AM By Pernell Fitzgerald ; [facility] traMADol HCl 50 MG Oral Tablet 06/28/2023 - 07/13/2023 Provider: Pernell Fitzgerald MD Diagnosis: 1-2 p o q 6-8h for breakthrough post op pain Last Documented On 3 8:44AM By Pernell Fitzgerald ; [facility] Acetaminophen 500 MG Oral Tablet 06/28/2023 - 07/28/20 Provider: Pernell Fitzgerald MD Diagnosis: 2 three times a day , AFTER SURGERY Last Documented On 3 8:29AM By Gimenezshannan Fitzgerald ; [facility], [facility] Colace 100 MG Oral Capsule 06/28/2023 - 07/28/2023 Pro vider: Pernell Fitzgerald MD Diagnosis: 1-2 tabs daily as needed, AFTER SURGERY Last Documented On 3 8:44AM By Pernell Fitzgerald [facility], [facility] Ondansetron HCl 4 MG Oral Tablet 06/28/2023 - 07/12/20 Provider: Pernell Fitzgerald MD Diagnosis: 1-2 p o q 6-8h as needed for nausea Last Documented On 3 8:44AM By Pernell Fitzgerald ; [facility], [facility] Mupirocin 2% External Ointment 06/23/2023 - 06/28/2023 Provider: Pernell Fitzgerald MD Diagnosis: as directed Apply to each no stril with a q tip once a day for 5 days prior to surgery Last Documented On 3 3:24PM By Laurie Pablo ; [facility], [facility] Mupirocin 2% External Ointment 06/08/2023 - 06/13/2023 Provider: Pernell Fitzgerald MD Diagnosis: as directed Apply to each no stril with a q tip once a day for 5 days prior to surgery Last Documented On 3 1:53PM By Laurie Pablo ; [facility], [facility] Cefadroxil 500 MG Oral Capsule 09/17/2021 - 09/20/2021 Provider: Pernell Fitzgerald MD Diagnosis: twice a day Last Documented On 1 2:48PM By Haley Allen ; [facility], [facility] Colace 100 MG Oral Capsule 09/17/2021 - 10/17/2021 Pro vider: Pernell Fitzgerald MD Diagnosis: 1-2 tablets daily, as needed, AFTER SURGERY Last Documented On 1 2:48PM By Haley Allen ; [facility], [facility] Zofran 4 MG Oral Tablet 09/17/2021 - 10/17/2021 Provid er: Pernell Fitzgerald MD Diagnosis: take 1 tablet every 6-8hrs for nausea, AFTER ZAIDA ANA Last Documented On 1 2:49PM By Haley Allen ; [facility], [facility] oxyCODONE HCl 5 MG Oral Tablet 09/17/2021 - 10/17/2021 Provider: Pernell Fitzgerald MD Diagnosis: take 1-2 tablets every 4-6hrs for post op pain Last Documented On 1 3:02PM By Pernell Fitzgerald ; [facility], [facility] Ultram 50 MG Oral Tablet 09/17/2021 - 10/17/2021 Provi fausto: Pernell Fitzgerald MD Diagnosis: 1-2 tablets every 6-8 hours for breakthrough pos t op pain Last Documented On 1 3:02PM By Pernell Fitzgerald ; [facility], [facility] Aspirin Adult Low Strength 8 1 MG Oral Tablet Delayed Release 09/17/2021 - 11/01/2021 Provider: Pernell Fitzgerald MD Diagnosis: twice a day Last Documented On 1 2:47PM By Haley Allen ; [facility], [facility] Acetaminophen 500 MG Oral Tablet 09/17/2021 - 10/17/20 21 Provider: Pernell Fitzgerald MD Diagnosis: take 2 tablets 3 times daily, AFTER SURGERY Last Documented On 1 2:47PM By Haley Allen ; [facility], [facility] oxyCODONE HCl 5 MG Oral Tablet 09/14/2021 - 10/14/2021 Provider: Pernell Fitzgerald MD Diagnosis: take 1-2 tablets every 4-6hrs for post op pain Last Documented On 1 4:52PM By Pernell Fitzgerald ; [facility], [facility] Ultram 50 MG Oral Tablet 07/31/2021 - 08/30/2021 Provi fausto: Pernell Fitzgerald MD Diagnosis: 1-2 po q6h prn pain Last Documented On 1 2:44PM By Pernell Fitzgerald ; [facility], [facility] Ultram 50 MG Oral Tablet 06/02/2021 - 07/02/2021 Provi fausto: Pernell Fitzgerald MD Diagnosis: 1-2 po q6h prn pain Last Documented On 1 12:40PM By Pernell Fitzgerald ; [facility], [facility] Medications Administered Includes: Administered Medications from this encounter No Administered Medications Recorded Vital Signs Includes: Vital Signs from this encounter Vital Name 12/27/2023 09:42A Height (in) 68 Weight (lb) 162 Body Mass Index 24.6 Body Surface Area 1.9 Pain Level 4 Note: Last Documented: On 12/27/2023 9:42AM ; [facility], [facility] Results Includes: Results discussed during this [...] Last Documented On 4 8:48AM ; [facility], [facility] No recent change in diet 12/27/2023 Last Documented On 4 8:48AM ; [facility], [facility] Not a current smoker. 12/27/2023 Last Documented On 4 8:48AM ; [facility] Caffeine use 12/21/2022 Last Documented On 4 9:22AM ; [facility], [facility] Not exercising regularly 12/21/2022 Last Documented On 4 9:22AM ; [facility], [facility] Not using alcohol 03/27/2021 Last Documented On 4 9:22AM ; [facility], [facility] Not using drugs 03/27/2021 Last Documented On 4 9:22AM ; [facility] Smoking Status Unknown Procedures and Surgical History Includes: Procedures from this encounter Procedures Code Diagnosis Performing Provider Service L ocation Service Date use of tobacco assessment performed 1000F Last Documented On 4 9:22AM ; [facility], [facility] patient screened for future fall risk: documentation of any fall with injury in past year 1100F Last Documented On 4 9:22AM ; [facility] review of medications documented 1160F Last Documented On 4 9:22AM ; [facility] Surgical History Last Updated History of History of Gallbladder 2022 Last Documented On 4 9:22AM ; [facility], [facility] History of hysterectomy 12/21/2022 Last Documented On 4 9:22AM ; [facility], [facility] History of total hip replacement 023 Last Documented On 4 9:22AM ; [facility] Medical History Includes: Medical History addressed during this encounter Description Last Updated History of arthritis 12/21/2022 Last Documented On 4 9:22AM ; [facility], [facility] History of depression 12/21/2022 Last Documented On 4 9:22AM ; [facility], [facility] History of heart disease 12/21/2022 Last Documented On 4 9:22AM ; [facility], [facility] History of Heartburn / Acid Reflux 12/21 Last Documented On 4 9:22AM ; [facility], [facility] History of Hypertension 12/21/2022 Last Documented On 4 9:22AM ; [facility], [facility] History of Irregular Heartbeat 3 Last Documented On 4 9:22AM ; [facility], [facility] Recent immunization for flu 07/31/2021 1 12/28/2020 Last Documented On 4 9:22AM ; [facility], [facility] No recent immunization for pneumococcal pneumonia 03/27/2021 Last Documented On 4 9:22AM ; [facility], [facility] Family History Includes: Family History addressed during this encounter Description Last Updated Diabetes mellitus 12/21/2022 Last Documented On 4 9:22AM ; [facility], [facility] Family history of heart disease 12/21/19 23 Last Documented On 4 9:22AM ; [facility], [facility] Family history of osteoporosis 3 Last Documented On 4 9:22AM ; [facility], [facility] Family history of rheumatoid arthritis 0 12/21/2022 Last Documented On 4 9:22AM ; [facility], [facility] Review of Systems Includes: Review of [...] Active Last Documented On 4 10:44AM ; [facility], [facility] Note: hyper Encounters Encounter Provider Location Date Check-In Time Check- Out Time Diagnosis Follow Up Pernell Fitzgerald MD [facility] 4 9:13AM 10:08AM Insurance Includes: Active Insurance Policies Plan Name Member ID Group # Subscriber Relationship Effect elena Dates 1 - Medicare Part B [facility] [id number] Karina Wilson Self 05/31/2013 - Unknown 2 - [facility] [employer] [id number] Karina Wilson Self 10/31/19 21 - Unknown Clinical Notes Includes: Clinical Notes from this encounter * Progress note Date Encounter Last Documented by 12/27/2023 Follow Up Last documented on 12/28/2023; 8:48 AM, Pernell Fitzgerald MD; [facility] Active Problems & Conditions [...] the had seen him previous neurologist in [facility] [place] it was diagnosed with Alzheimer's but [...] Care Team - HIRAM PIERRE MD - SURGERY TECHNICIAN - Luh Sesay PA-C
--- OUTSIDE RECORDS SUMMARY | 2025-02-19 13:46 | XMS_ITS | Clinical Summary ---
Author Organization [facility] Address [address] [place] [address] Phone Care Team Providers Care Clinical Recruiter Name Role Phone Lázaro ISIDRO, Luh Unavailable [phone] Lia FIGUEREDO, Pernell Unavailable [phone] IGNACIO FIGUEREDO, HIRAM Unavailable [phone] Reason for Visit and Chief Complaint The Chief Complaint is: left hip pain Problems Includes: Problems addressed during this encounter and other active Problems All Visits Onset Date Resolved Date Provider Condition S tatus Joint Pain in the Left Hip 03/27/2021 Pernell marshall MD Active Last Documented On 8:21AM ; [facility] Plan of Treatment Fall Risk Assessment: [...] - Last Documented On 08/09/2023 2:05PM ; [facility] Patient was seen by myself Robert Hayward PA-C. Patient will follow up [address] Ackerman she was scheduled for next week I think we can push it off for a week did offer physical therapy but she does not want to do that. Recommend continue with just conservative care rest and Tylenol. - Last Documented On 08/09/2023 2:05PM ; [facility] Assessments Includes: Assessments from this encounter Findings Left total hip revision - Last Documented On 08/09/2023 2:05PM ; [facility] left hip strain and gastroc strain - Last Documented On 08/09/2023 2:05PM ; [facility] Medical Equipment - Implanted Devices Includes: Current Devices No Medical Equipment Recorded Medications Includes: Medications discussed during this encounter and other current Medications Current Medications (continue as prescribed) Ondansetron 4 MG Oral Tablet Disintegrating 12/12/2023 Provider: Diagnosis: Last Documented On 4 9:22AM By Albania Darby ; [facility] Sotalol HCl 80 MG Oral Tablet 12/07/2023 Provider: HIRAM PIERRE MD Diagnosis: Last Documented On 4 9:22AM By Albania Darby ; [facility] Levothyroxine Sodium 25 MCG Oral Tablet 12/02/2023 Coni mitchell: HIRAM PIERRE MD Diagnosis: Last Documented On 4 9:22AM By Albania Darby ; [facility] Valsartan-hydroCHLOROthiazid e 320-12.5 MG Oral Tablet 12/02/2023 Provider: HIRAM PIERRE MD Diagnosis: Last Documented On 4 9:22AM By Albania Darby ; [facility] Venlafaxine HCl ER 150 MG Or al Capsule Extended Release 24 Hour 12/02/2023 Provider: HIRAM PIERRE MD Diagnosis: Last Documented On 4 9:22AM By Albania Darby ; [facility] Amoxicillin-Pot Clavulanate 875-125 MG Oral Tablet Provider: Diagnosis: Last Documented On 4 9:22AM By Albania Darby ; [facility] Cetirizine HCl 10 MG Oral Capsule 03/27/2021 Provide r: Diagnosis: Last Documented On 1 9:12AM By Ami Dickerson ; [facility] Tetracycline HCl 500 MG Oral Capsule 01/22/2021 Prov ider: CARLA RUIZ II, MD Diagnosis: Last Documented On 1 8:45AM By Pam Valencia ; [facility] Omeprazole 20 MG Oral Capsul e Delayed Release 01/22/2021 Provider: CARLA RUIZ II, MD Diagnosis: Last Documented On 1 8:45AM By Pam Valencia ; [facility] metroNIDAZOLE 250 MG Oral Tablet 01/22/2021 Provider : CARLA RUIZ II, MD Diagnosis: Last Documented On 1 8:45AM By Pam Valencia ; [facility] FeroSul 325 (65 Fe) MG Oral Tablet 12/22/2020 Provid er: Diagnosis: Last Documented On 1 8:45AM By Pam Valencia ; [facility] Xarelto 20 MG Oral Tablet 12/08/2020 Provider: Diagnosis: Last Documented On 8:45AM By Pam Valencia ; [facility] Donepezil HCl 10 MG Oral Tablet 11/13/2020 Provider: TONY CARRERA MD (N) Diagnosis: Last Documented On 8:45AM By Pam Valencia ; [facility] Meloxicam 15 MG Oral Tablet 09/06/2020 Provider: Diagnosis: Last Documented On 1 9:12AM By Ami Dickerson ; [facility] Atorvastatin Calcium 10 MG Oral Tablet 06/06/2020 Pr ovider: Diagnosis: Last Documented On 1 9:12AM By Ami Dickerson ; [facility] Past Medications on file oxyCODONE HCl 5 MG Oral Tablet 06/28/2023 - 07/03/2023 Provider: Pernell Fitzgerald MD Diagnosis: 1-2 p o q 6-8h for post op pain Last Documented On 3 8:44AM By Pernell Fitzgerald ; [facility] Meloxicam 15 MG Oral Tablet 06/28/2023 - 07/28/2023 Pr ovider: Pernell Fitzgerald MD Diagnosis: once a day Last Documented On 3 8:44AM By Pernell Fitzgerald ; [facility] Cefadroxil 500 MG Oral Capsule 06/28/2023 - 07/01/2023 Provider: Pernell Fitzgerald MD Diagnosis: twice a day Last Documented On 3 8:44AM By Pernell Fitzgerald ; [facility] traMADol HCl 50 MG Oral Tablet 06/28/2023 - 07/13/2023 Provider: Pernell Fitzgerald MD Diagnosis: 1-2 p o q 6-8h for breakthrough post op pain Last Documented On 3 8:44AM By Pernell Fitzgerald ; [facility] Acetaminophen 500 MG Oral Tablet 06/28/2023 - 07/28/20 Provider: Pernell Fitzgerald MD Diagnosis: 2 three times a day , AFTER SURGERY Last Documented On 3 8:29AM By Pernell Fitzgerald ; [facility] Colace 100 MG Oral Capsule 06/28/2023 - 07/28/2023 Pro vider: Pernell Fitzgerald MD Diagnosis: 1-2 tabs daily as needed, AFTER SURGERY Last Documented On 3 8:44AM By Pernell Fitzgerald ; [facility] Ondansetron HCl 4 MG Oral Tablet 06/28/2023 - 07/12/20 Provider: Pernell Fitzgerald MD Diagnosis: 1-2 p o q 6-8h as needed for nausea Last Documented On 3 8:44AM By Pernell Fitzgerald ; [facility] Mupirocin 2% External Ointment 06/23/2023 - 06/28/2023 Provider: Pernell Fitzgerald MD Diagnosis: as directed Apply to each no stril with a q tip once a day for 5 days prior to surgery Last Documented On 3 3:24PM By Laurie Pablo ; [facility] Mupirocin 2% External Ointment 06/08/2023 - 06/13/2023 Provider: Pernell Fitzgerald MD Diagnosis: as directed Apply to each no stril with a q tip once a day for 5 days prior to surgery Last Documented On 3 1:53PM By Laurie Pablo ; [facility] Cefadroxil 500 MG Oral Capsule 09/17/2021 - 09/20/2021 Provider: Pernell Fitzgerald MD Diagnosis: twice a day Last Documented On 1 2:48PM By Haley Allen ; [facility] Colace 100 MG Oral Capsule 09/17/2021 - 10/17/2021 Pro vider: Pernell Fitzgerald MD Diagnosis: 1-2 tablets daily, as needed, AFTER SURGERY Last Documented On 1 2:48PM By Haley Allen ; [facility] Zofran 4 MG Oral Tablet 09/17/2021 - 10/17/2021 Provid er: Pernell Fitzgerald MD Diagnosis: take 1 tablet every 6-8hrs for nausea, AFTER ZAIDA ANA Last Documented On 1 2:49PM By Haley Allen ; [facility] oxyCODONE HCl 5 MG Oral Tablet 09/17/2021 - 10/17/2021 Provider: Pernell Fitzgerald MD Diagnosis: take 1-2 tablets every 4-6hrs for post op pain Last Documented On 1 3:02PM By Pernell Fitzgerald ; [facility] Ultram 50 MG Oral Tablet 09/17/2021 - 10/17/2021 Provi fausto: Pernell Fitzgerald MD Diagnosis: 1-2 tablets every 6-8 hours for breakthrough pos t op pain Last Documented On 1 3:02PM By Pernell Fitzgerald ; [facility] Aspirin Adult Low Strength 8 1 MG Oral Tablet Delayed Release 09/17/2021 - 11/01/2021 Provider: Pernell Fitzgerald MD Diagnosis: twice a day Last Documented On 1 2:47PM By Haley Allen ; [facility] Acetaminophen 500 MG Oral Tablet 09/17/2021 - 10/17/20 21 Provider: Pernell Fitzgerald MD Diagnosis: take 2 tablets 3 times daily, AFTER SURGERY Last Documented On 1 2:47PM By Haley Allen ; [facility] oxyCODONE HCl 5 MG Oral Tablet 09/14/2021 - 10/14/2021 Provider: Pernell Fitzgerald MD Diagnosis: take 1-2 tablets every 4-6hrs for post op pain Last Documented On 1 4:52PM By Pernell Fitzgerald ; [facility] Ultram 50 MG Oral Tablet 07/31/2021 - 08/30/2021 Provi fausto: Pernell Fitzgerald MD Diagnosis: 1-2 po q6h prn pain Last Documented On 1 2:44PM By Pernell Fitzgerald ; [facility] Ultram 50 MG Oral Tablet 06/02/2021 [...] of Present Illness from this encounter HPI aKrina Wilson is a 77 year old female. [...] Documented On 3 1:35PM ; [facility] No recent change in diet 12/27/2023 Last Documented On 3 1:35PM ; [facility] Not a current smoker. 12/27/2023 Last Documented On 3 1:35PM ; [facility] Caffeine use 12/21/2022 Last Documented On 3 1:35PM ; [facility] Not exercising regularly 12/21/2022 Last Documented On 3 1:35PM ; [facility] Non-smoker 03/27/2021 Last Documented On 3 1:35PM ; [facility] No recent change in diet 03/27/2021 Last Documented On 3 1:35PM ; [facility] Not a current smoker. 03/27/2021 Last Documented On 3 1:35PM ; [facility] Not using alcohol 03/27/2021 Last Documented On 3 1:35PM ; [facility] Not using drugs 03/27/2021 Last Documented On 3 1:35PM ; [facility] Smoking Status Unknown Procedures and Surgical History Includes: Procedures from this encounter Procedures Code Diagnosis Performing Provider Service L ocation Service Date use of tobacco assessment performed 1000F Last Documented On 3 1:36PM ; [facility] patient screened for future fall risk: documentation of any fall with injury in past year 1100F Last Documented On 3 1:36PM ; [facility] review of medications documented 1160F Last Documented On 3 1:36PM ; [facility] Surgical History Last Updated History of History of Gallbladder 2022 Last Documented On 3 1:35PM ; [facility] History of hysterectomy 12/21/2022 Last Documented On 3 1:35PM ; [facility] History of total hip replacement 023 Last Documented On 3 1:35PM ; [facility] Medical History Includes: Medical History addressed during this encounter Description Last Updated History of arthritis 12/21/2022 Last Documented On 3 1:35PM ; [facility] History of depression 12/21/2022 Last Documented On 3 1:35PM ; [facility] History of heart disease 12/21/2022 Last Documented On 3 1:35PM ; [facility] History of Heartburn / Acid Reflux 12/21 Last Documented On 3 1:35PM ; [facility] History of Hypertension 12/21/2022 Last Documented On 3 1:35PM ; [facility] History of Irregular Heartbeat 3 Last Documented On 3 1:35PM ; [facility] Recent immunization for flu 07/31/2021 1 12/28/2020 Last Documented On 3 1:35PM ; [facility] No recent immunization for pneumococcal pneumonia 03/27/2021 Last Documented On 3 1:35PM ; [facility] Family History Includes: Family History addressed during this encounter Description Last Updated Diabetes mellitus 12/21/2022 Last Documented On 3 1:35PM ; [facility] Family history of heart disease 12/21/19 23 Last Documented On 3 1:35PM ; [facility] Family history of osteoporosis 3 Last Documented On 3 1:35PM ; [facility] Family history of rheumatoid arthritis 0 12/21/2022 Last Documented On 3 1:35PM ; [facility] Review of Systems Includes: Review of [...] Active Last Documented On 4 10:44AM ; [facility] Note: hyper Encounters Encounter Provider Location Date Check-In Time Check- Out Time Diagnosis Follow Up Robert Hayward PA-C [facility] 3 1:31PM 2:03PM Insurance Includes: Active Insurance Policies Plan Name Member ID Group # Subscriber Relationship Effect elena Dates 1 - Medicare Part B [facility] [id number] Karina Wilson Self 05/31/2013 - Unknown 2 - [facility] [employer] [id number] Karina Wilson Self 10/31/19 21 - Unknown Clinical Notes Includes: Clinical Notes from this encounter * Progress note Date Encounter Last Documented by 08/09/2023 Follow Up Last documented on 08/09/2023; 2:05 PM, Robert Hayward PA-C; [facility] Active Problems & Conditions - Joint [...] Care Team - HIRAM PIERRE MD - [facility] - Luh Sesay PA-C
--- OUTSIDE RECORDS SUMMARY | 2025-02-19 13:46 | XMS_ITS ---
Care Plan - [facility] Created on: February 19, 2025 Karina Wilson : 1945 Sex: Female Author Organization [facility] Address [address] [place] [address] Phone Care Team Providers Care Tracer Lathe Set Up Operator Name Role Phone Lázaro ISIDRO, Luh Unavailable [phone] Lia FIGUEREDO, Pernell Unavailable [phone] IGNACIO FIGUEREDO, HIRAM Unavailable [phone]
--- OUTSIDE RECORDS SUMMARY | 2025-02-19 13:47 | XMS_ITS ---
Author Organization [facility] , [facility] Address [address] [place] [address] Phone Care Team Providers Care Vulcanizer Operator Name Role Phone Lázaro ISIDRO, Luh Unavailable [phone] Lia FIGUEREDO, Pernell Unavailable [phone] IGNACIO FIGUEREDO, HIRAM Unavailable [phone] [...] Last Documented On 1 8:21AM ; [facility], [facility] Plan of Treatment Findings Encounter Date Patient screened for future fall risk: documentation of any fall with injury in past year Follow Up with Pernell Fitzgerald MD 05/08/2024 Last Documented On 4 3:41PM ; [facility], [facility] Instructions to patient Lose weight Last Documented On 3 9:58AM ; [facility], [facility] Lose weight Last Documented On 3 9:52AM ; [facility], [facility] Lose weight Last Documented On 2 9:10AM ; [facility], [facility] Assessments Includes: Assessments for all patient encounters No Assessments Recorded Instructions Includes: Instructions for all patient encounters Instructions to patient Lose weight Last Documented On 3 9:58AM ; [facility], [facility] Lose weight Last Documented On 3 9:52AM ; [facility], [facility] Lose weight Last Documented On 2 9:10AM ; [facility], [facility] Medical Equipment - Implanted Devices Includes: Current and historical Devices No Medical Equipment Recorded Medications Includes: Current and historical Medications Current Medications (continue as prescribed) Ondansetron 4 MG Oral Tablet Disintegrating 12/12/2023 Provider: Diagnosis: Last Documented On 4 9:22AM By Albania Darby ; [facility], [facility] Sotalol HCl 80 MG Oral Tablet 12/07/2023 Provider: HIRAM PIERRE MD Diagnosis: Last Documented On 4 9:22AM By Albania Darby ; [facility], [facility] Levothyroxine Sodium 25 MCG Oral Tablet 12/02/2023 Coni mitchell: HIRAM PIERRE MD Diagnosis: Last Documented On 4 9:22AM By Albania Darby ; [facility] Valsartan-hydroCHLOROthiazid e 320-12.5 MG Oral Tablet 12/02/2023 Provider: HIRAM PIERRE MD Diagnosis: Last Documented On 4 9:22AM By Albania Darby ; [facility], [facility] Venlafaxine HCl ER 150 MG Or al Capsule Extended Release 24 Hour 12/02/2023 Provider: HIRAM PIERRE MD Diagnosis: Last Documented On 4 9:22AM By Albania Darby ; [facility], [facility] Amoxicillin-Pot Clavulanate 875-125 MG Oral Tablet Provider: Diagnosis: Last Documented On 4 9:22AM By Albania Darby ; [facility], [facility] Cetirizine HCl 10 MG Oral Capsule 03/27/2021 Provide r: Diagnosis: Last Documented On 1 9:12AM By Ami Dickerson ; [facility], [facility] Tetracycline HCl 500 MG Oral Capsule 01/22/2021 Prov ider: CARLA RUIZ II, MD Diagnosis: Last Documented On 1 8:45AM By Pam Valencia ; [facility], [facility] Omeprazole 20 MG Oral Capsul e Delayed Release 01/22/2021 Provider: CARLA RUIZ II, MD Diagnosis: Last Documented On 1 8:45AM By Pam Valencia ; [facility] metroNIDAZOLE 250 MG Oral Tablet 01/22/2021 Provider : CARLA RUIZ II, MD Diagnosis: Last Documented On 1 8:45AM By Pam Valencia ; [facility] FeroSul 325 (65 Fe) MG Oral Tablet 12/22/2020 Provid er: Diagnosis: Last Documented On 1 8:45AM By Pam Valencia ; [facility], [facility] Xarelto 20 MG Oral Tablet 12/08/2020 Provider: Diagnosis: Last Documented On 1 8:45AM By Pam Valencia ; [facility], [facility] Donepezil HCl 10 MG Oral Tablet 11/13/2020 Provider: TONY CARRERA MD (N) Diagnosis: Last Documented On 1 8:45AM By Pam Valencia ; [facility], [facility] Meloxicam 15 MG Oral Tablet 09/06/2020 Provider: Diagnosis: Last Documented On 1 9:12AM By Ami Dickerson ; [facility], [facility] Atorvastatin Calcium 10 MG Oral Tablet 06/06/2020 Pr ovider: Diagnosis: Last Documented On 1 9:12AM By Ami Dickerson ; [facility], [facility] Past Medications on file oxyCODONE HCl 5 MG Oral Tablet 06/28/2023 - 07/03/2023 Provider: Pernell Fitzgerald MD Diagnosis: 1-2 p o q 6-8h for post op pain Last Documented On 3 8:44AM By Pernell Fitzgerald ; [facility], [facility] Meloxicam 15 MG Oral Tablet 06/28/2023 - 07/28/2023 Pr ovider: Pernell Fitzgerald MD Diagnosis: once a day Last Documented On 3 8:44AM By Pernell Fitzgerald ; [facility], [facility] Cefadroxil 500 MG Oral Capsule 06/28/2023 - 07/01/2023 Provider: Pernell Fitzgerald MD Diagnosis: twice a day Last Documented On 3 8:44AM By Pernell Fitzgerald ; [facility], [facility] traMADol HCl 50 MG Oral Tablet 06/28/2023 - 07/13/2023 Provider: Pernell Fitzgerald MD Diagnosis: 1-2 p o q 6-8h for breakthrough post op pain Last Documented On 3 8:44AM By Pernell Fitzgerald ; [facility], [facility] Acetaminophen 500 MG Oral Tablet 06/28/2023 - 07/28/20 23 Provider: Pernell Fitzgerald MD Diagnosis: 2 three times a day , AFTER SURGERY Last Documented On 3 8:29AM By Pernell Fitzgerald ; [facility], [facility] Colace 100 MG Oral Capsule 06/28/2023 - 07/28/2023 Pro vider: Pernell Fitzgerald MD Diagnosis: 1-2 tabs daily as needed, AFTER SURGERY Last Documented On 3 8:44AM By Pernell Fitzgerald ; [facility], [facility] Ondansetron HCl 4 MG Oral Tablet 06/28/2023 - 07/12/20 Provider: Pernell Fitzgerald MD Diagnosis: 1-2 p o q 6-8h as needed for nausea Last Documented On 3 8:44AM By Pernell Fitzgerald ; [facility], [facility] Mupirocin 2% External Ointment 06/23/2023 - 06/28/2023 Provider: Pernell Fitzgerald MD Diagnosis: as directed Apply to each no stril with a q tip once a day for 5 days prior to surgery Last Documented On 3 3:24PM By Laurie Pablo ; [facility], [facility] Mupirocin 2% External Ointment 06/08/2023 - 06/13/2023 Provider: Pernell Fitzgerald MD Diagnosis: as directed Apply to each no stril with a q tip once a day for 5 days prior to surgery Last Documented On 3 1:53PM By Laurie Pablo ; [facility], [facility] Cefadroxil 500 MG Oral Capsule 09/17/2021 - 09/20/2021 Provider: Pernell Fitzgerald MD Diagnosis: twice a day Last Documented On 1 2:48PM By Haley Allen ; [facility] Colace 100 MG Oral Capsule 09/17/2021 - 10/17/2021 Pro vider: Pernell Fitzgerald MD Diagnosis: 1-2 tablets daily, as needed, AFTER SURGERY Last Documented On 1 2:48PM By Haley Allen ; [facility] Zofran 4 MG Oral Tablet 09/17/2021 - 10/17/2021 Provid er: Pernell Fitzgerald MD Diagnosis: take 1 tablet every 6-8hrs for nausea, AFTER ZAIDA ANA Last Documented On 1 2:49PM By Haley Allen ; [facility] oxyCODONE HCl 5 MG Oral Tablet 09/17/2021 - 10/17/2021 Provider: Pernell Fitzgerald MD Diagnosis: take 1-2 tablets every 4-6hrs for post op pain Last Documented On 1 3:02PM By Pernell Fitzgerald ; [facility] Ultram 50 MG Oral Tablet 09/17/2021 - 10/17/2021 Provi fausto: Pernell Fitzgerald MD Diagnosis: 1-2 tablets every 6-8 hours for breakthrough pos t op pain Last Documented On 1 3:02PM By Pernell Fitzgerald ; [facility] Aspirin Adult Low Strength 8 1 MG Oral Tablet Delayed Release 09/17/2021 - 11/01/2021 Provider: Pernell Fitzgerald MD Diagnosis: twice a day Last Documented On 1 2:47PM By Haley Allen ; [facility] Acetaminophen 500 MG Oral Tablet 09/17/2021 - 10/17/20 21 Provider: Pernell Fitzgerald MD Diagnosis: take 2 tablets 3 times daily, AFTER SURGERY Last Documented On 1 2:47PM By Haley Allen ; [facility] oxyCODONE HCl 5 MG Oral Tablet 09/14/2021 - 10/14/2021 Provider: Pernell Fitzgerald MD Diagnosis: take 1-2 tablets every 4-6hrs for post op pain Last Documented On 1 4:52PM By Pernell Fitzgerald ; [facility] Ultram 50 MG Oral Tablet 07/31/2021 - 08/30/2021 Provi fausto: Pernell Fitzgerald MD Diagnosis: 1-2 po q6h prn pain Last Documented On 1 2:44PM By Pernell Fitzgerald ; [facility] Ultram 50 MG Oral Tablet 06/02/2021 - 07/02/2021 Provi fausto: Pernell Fitzgerald MD Diagnosis: 1-2 po q6h prn pain Last Documented On 1 12:40PM By Pernell Fitzgerald ; [facility] Valsartan-hydroCHLOROthiazid e 320-12.5 MG Oral Tablet 09/09/2020 - 12/27/2023 Provider: Diagnosis: Last Documented On 4 12:06PM By Lissette De ; [facility] Venlafaxine HCl ER 150 MG Or al Capsule Extended Release 24 Hour 09/06/2020 - 12/27/2023 Provider: Diagnosis: Last Documented On 4 12:06PM By Lissette MICHAEL [facility] Sotalol HCl 80 MG Oral Tablet 06/06/2020 - 12/27/2023 Provider: Diagnosis: Last Documented On 4 12:06PM By Lissette De ; [facility] Medications Administered Includes: Administered Medications in patient's chart No Administered Medications Recorded Vital Signs Includes: Vital Signs from 02/20/2024 through 02/19/2025 Vital Name 05/08/2024 10:52A Height (in) 68 Weight (lb) 154.3 Body Mass Index 23.5 Body Surface Area 1.8 Pain Level 8 Last Documented: On 05/08/2024 10:53A M ; [facility] Results Includes: Results from 02/20/2024 through 02/19/2025 No Results Recorded For Specified Dates History of Present Illness History of Present Illness not supported for this document type No History of Present Illness Recorded Social History Description Last Updated Tobacco non-user 12/27/2023 Last Documented On 4 8:48AM ; [facility] No recent change in diet 12/27/2023 Last Documented On 4 8:48AM ; [facility] Not a current smoker. 12/27/2023 Last Documented On 4 8:48AM ; [facility], [facility] Caffeine use 12/21/2022 Last Documented On 3 10:34AM ; [facility], [facility] Not exercising regularly 12/21/2022 Last Documented On 3 10:34AM ; [facility], [facility] Non-smoker 03/27/2021 Last Documented On 1 3:32PM ; [facility], [facility] No recent change in diet 03/27/2021 Last Documented On 1 3:32PM ; [facility], [facility] Not a current smoker. 03/27/2021 Last Documented On 1 3:32PM ; [facility], [facility] Not using alcohol 03/27/2021 Last Documented On 1 3:32PM ; [facility], [facility] Not using drugs 03/27/2021 Last Documented On 1 3:32PM ; [facility], [facility] Smoking Status Unknown Procedures and Surgical History Includes: Procedures from 02/20/2024 through 02/19/2025 Procedures Code Diagnosis Performing Provider Service Location Service Date X-RAY EXAM OF KNEE 1 OR 2 VIEWS (RIGHT) 89602 Unilateral primary osteoarthritis, right knee Pernell Fitzgerald MD [facility] 05/08/2024 Last Documented On 4 4:26PM ; [facility] Surgical History Last Updated History of History of Gallbladder 2022 Last Documented On 3 10:34AM ; [facility], [facility] History of hysterectomy 12/21/2022 Last Documented On 3 10:34AM ; [facility] History of total hip replacement 023 Last Documented On 3 10:34AM ; [facility], [facility] Medical History Includes: Medical History in patient's chart Description Last Updated History of arthritis 12/21/2022 Last Documented On 3 10:34AM ; [facility] History of depression 12/21/2022 Last Documented On 3 10:34AM ; [facility], [facility] History of heart disease 12/21/2022 Last Documented On 3 10:34AM ; [facility] History of Heartburn / Acid Reflux 12/21 Last Documented On 3 10:34AM ; [facility] History of Hypertension 12/21/2022 Last Documented On 3 10:34AM ; [facility] History of Irregular Heartbeat 3 Last Documented On 3 10:34AM ; [facility] Recent immunization for flu 07/31/2021 1 12/28/2020 Last Documented On 2 4:22PM ; [facility] No recent immunization for pneumococcal pneumonia 03/27/2021 Last Documented On 1 3:32PM ; [facility] Family History Includes: Family History in patient's chart Description Last Updated Diabetes mellitus 12/21/2022 Last Documented On 3 10:34AM ; [facility] Family history of heart disease 12/21/19 23 Last Documented On 3 10:34AM ; [facility] Family history of osteoporosis 3 Last Documented On 3 10:34AM ; [facility] Family history of rheumatoid arthritis 0 12/21/2022 Last Documented On 3 10:34AM ; [facility] Review of Systems Review of Systems [...] Active Last Documented On 4 10:44AM ; [facility] Note: hyper Encounters Includes: Encounters from 02/20/2024 through 02/19/2025 Encounter Provider Location Date Check-In Time Check- Out Time Diagnosis Follow Up Pernell Fitzgerald MD [facility] 4 10:03AM 11:14AM Insurance Includes: Active Insurance Policies Plan Name Member ID Group # Subscriber Relationship Effect elena Dates 1 - Medicare Part B [facility] [id number] Karina Wilson Self 05/31/2013 - Unknown 2 - [employer] [facility] [employer] [id number] Karina Wilson Self 10/31/19 21 - Unknown Clinical Notes Includes: Signed Clinical Notes starting from 10/14/2022 * Progress note Date Encounter Last Documented by 05/08/2024 Follow Up Last documented on 05/09/2024; 3:41 PM, Pernell Fitzgerald MD; [facility], [facility] Active Problems & Conditions - Joint [...] Care Team - HIRAM PIERRE MD - SCREEDMAN/LABORER - Luh Sesay PA-C
--- OUTSIDE RECORDS SUMMARY | 2025-02-19 13:47 | XMS_ITS | Clinical Summary ---
Author Organization [facility] , [facility] Address [address] [place] [address] Phone Care Team Providers Care Stone Banker Name Role Phone Lázaro ISIDRO, Luh Unavailable [phone] Lia FIGUEREDO, Pernell Unavailable [phone] IGNACIO FIGUEREDO, HIRAM Unavailable [phone] Reason for Visit and Chief Complaint The Chief Complaint is: left hip pain Problems Includes: Problems addressed during this encounter and other active Problems All Visits Onset Date Resolved Date Provider Condition S tatus Joint Pain in the Left Hip 03/27/2021 Pernell marshall MD Active Last Documented On 8:21AM ; [facility] Plan of Treatment Fall Risk Assessment: [...] - Last Documented On 08/25/2023 1:29PM ; [facility] Patient was seen by myself and Dr. Fitzgerald. Robert Hayward PA-C Patient will follow- up 3 months repeat x-rays of her left hip. - Last Documented On 08/25/2023 1:29PM ; [facility] Assessments Includes: Assessments from this encounter Findings Left total hip revision 07/01/2023 - Last Documented On 08/25/2023 1:29PM ; [facility] Medical Equipment - Implanted Devices Includes: Current Devices No Medical Equipment Recorded Medications Includes: Medications discussed during this encounter and other current Medications Current Medications (continue as prescribed) Ondansetron 4 MG Oral Tablet Disintegrating 12/12/2023 Provider: Diagnosis: Last Documented On 4 9:22AM By Albania Darby ; [facility], [facility] Sotalol HCl 80 MG Oral Tablet 12/07/2023 Provider: HIRAM PIERRE MD Diagnosis: Last Documented On 4 9:22AM By Albania Darby ; [facility], [facility] Levothyroxine Sodium 25 MCG Oral Tablet 12/02/2023 Coni mitchell: HIRAM PIERRE MD Diagnosis: Last Documented On 4 9:22AM By Albania Darby ; [facility], [facility] Valsartan-hydroCHLOROthiazid e 320-12.5 MG Oral Tablet 12/02/2023 Provider: HIRAM PIERRE MD Diagnosis: Last Documented On 4 9:22AM By Albania Darby ; [facility], [facility] Venlafaxine HCl ER 150 MG Or al Capsule Extended Release 24 Hour 12/02/2023 Provider: HIRAM PIERRE MD Diagnosis: Last Documented On 4 9:22AM By Albania Darby ; [facility], [facility] Amoxicillin-Pot Clavulanate 875-125 MG Oral Tablet Provider: Diagnosis: Last Documented On 4 9:22AM By Albania Darby ; [facility], [facility] Cetirizine HCl 10 MG Oral Capsule 03/27/2021 Provide r: Diagnosis: Last Documented On 1 9:12AM By Ami Dickerson ; [facility], [facility] Tetracycline HCl 500 MG Oral Capsule 01/22/2021 Prov ider: CARLA RUIZ II, MD Diagnosis: Last Documented On 1 8:45AM By Pam Valencia ; [facility], [facility] Omeprazole 20 MG Oral Capsul e Delayed Release 01/22/2021 Provider: CARLA RUIZ II, MD Diagnosis: Last Documented On 1 8:45AM By Pam Valencia ; [facility], [facility] metroNIDAZOLE 250 MG Oral Tablet 01/22/2021 Provider : CARLA RUIZ II, MD Diagnosis: Last Documented On 1 8:45AM By Pam Valencia ; [facility] FeroSul 325 (65 Fe) MG Oral Tablet 12/22/2020 Provid er: Diagnosis: Last Documented On 1 8:45AM By Pam Valencia ; [facility] Xarelto 20 MG Oral Tablet 12/08/2020 Provider: Diagnosis: Last Documented On 1 8:45AM By Pam Valencia ; [facility] Donepezil HCl 10 MG Oral Tablet 11/13/2020 Provider: TONY CARRERA MD (N) Diagnosis: Last Documented On 1 8:45AM By Pam Valencia ; [facility] Meloxicam 15 MG Oral Tablet 09/06/2020 Provider: Diagnosis: Last Documented On 1 9:12AM By Ami Dickerson ; [facility] Atorvastatin Calcium 10 MG Oral Tablet 06/06/2020 Pr ovider: Diagnosis: Last Documented On 1 9:12AM By Ami Dickerson ; [facility], [facility] Past Medications on file oxyCODONE HCl 5 MG Oral Tablet 06/28/2023 - 07/03/2023 Provider: Pernell Fitzgerald MD Diagnosis: 1-2 p o q 6-8h for post op pain Last Documented On 3 8:44AM By Pernell Fitzgerald ; [facility] Meloxicam 15 MG Oral Tablet 06/28/2023 - 07/28/2023 Pr ovider: Pernell Fitzgerald MD Diagnosis: once a day Last Documented On 3 8:44AM By Pernell Fitzgerald ; [facility] Cefadroxil 500 MG Oral Capsule 06/28/2023 - 07/01/2023 Provider: Pernell Fitzgerald MD Diagnosis: twice a day Last Documented On 3 8:44AM By Pernell Fitzgerald ; [facility] traMADol HCl 50 MG Oral Tablet 06/28/2023 - 07/13/2023 Provider: Pernell Fitzgerald MD Diagnosis: 1-2 p o q 6-8h for breakthrough post op pain Last Documented On 3 8:44AM By Pernell Fitzgerald ; [facility], [facility] Acetaminophen 500 MG Oral Tablet 06/28/2023 - 07/28/20 Provider: Pernell Fitzgerald MD Diagnosis: 2 three times a day , AFTER SURGERY Last Documented On 3 8:29AM By Pernell Fitzgerald ; [facility], [facility] Colace 100 MG Oral Capsule 06/28/2023 - 07/28/2023 Pro vider: Pernell Fitzgerald MD Diagnosis: 1-2 tabs daily as needed, AFTER SURGERY Last Documented On 3 8:44AM By Pernell Fitzgerald ; [facility], [facility] Ondansetron HCl 4 MG Oral Tablet 06/28/2023 - 07/12/20 Provider: Pernell Fitzgerald MD Diagnosis: 1-2 p o q 6-8h as needed for nausea Last Documented On 3 8:44AM By Pernell Fitzgerald ; [facility], [facility] Mupirocin 2% External Ointment 06/23/2023 - 06/28/2023 Provider: Pernell Fitzgerald MD Diagnosis: as directed Apply to each no stril with a q tip once a day for 5 days prior to surgery Last Documented On 3 3:24PM By Laurie Pablo ; [facility], [facility] Mupirocin 2% External Ointment 06/08/2023 - 06/13/2023 Provider: Pernell Fitzgerald MD Diagnosis: as directed Apply to each no stril with a q tip once a day for 5 days prior to surgery Last Documented On 3 1:53PM By Laurie Pablo ; [facility], [facility] Cefadroxil 500 MG Oral Capsule 09/17/2021 - 09/20/2021 Provider: Pernell Fitzgerald MD Diagnosis: twice a day Last Documented On 1 2:48PM By Haley Allen ; [facility], [facility] Colace 100 MG Oral Capsule 09/17/2021 - 10/17/2021 Pro vider: Pernell Fitzgerald MD Diagnosis: 1-2 tablets daily, as needed, AFTER SURGERY Last Documented On 1 2:48PM By Haley Allen ; [facility], [facility] Zofran 4 MG Oral Tablet 09/17/2021 - 10/17/2021 Provid er: Pernell Fitzgerald MD Diagnosis: take 1 tablet every 6-8hrs for nausea, AFTER ZAIDA ANA Last Documented On 1 2:49PM By Haley Allen ; [facility] oxyCODONE HCl 5 MG Oral Tablet 09/17/2021 - 10/17/2021 Provider: Pernell Fitzgerald MD Diagnosis: take 1-2 tablets every 4-6hrs for post op pain Last Documented On 1 3:02PM By Pernell Fitzgerald ; [facility] Ultram 50 MG Oral Tablet 09/17/2021 - 10/17/2021 Provi fausto: Pernell Fitzgerald MD Diagnosis: 1-2 tablets every 6-8 hours for breakthrough pos t op pain Last Documented On 1 3:02PM By Pernell Fitzgerald ; [facility], [facility] Aspirin Adult Low Strength 8 1 MG Oral Tablet Delayed Release 09/17/2021 - 11/01/2021 Provider: Pernell Fitzgerald MD Diagnosis: twice a day Last Documented On 1 2:47PM By Haley Allen ; [facility], [facility] Acetaminophen 500 MG Oral Tablet 09/17/2021 - 10/17/20 21 Provider: Pernell Fitzgerald MD Diagnosis: take 2 tablets 3 times daily, AFTER SURGERY Last Documented On 1 2:47PM By Haley Allen ; [facility], [facility] oxyCODONE HCl 5 MG Oral Tablet 09/14/2021 - 10/14/2021 Provider: Pernell Fitzgerald MD Diagnosis: take 1-2 tablets every 4-6hrs for post op pain Last Documented On 1 4:52PM By Pernell Fitzgerald ; [facility] Ultram 50 MG Oral Tablet 07/31/2021 - 08/30/2021 Provi fausto: Pernell Fitzgerald MD Diagnosis: 1-2 po q6h prn pain Last Documented On 1 2:44PM By Pernell Fitzgerald ; [facility] Ultram 50 MG Oral Tablet 06/02/2021 - 07/02/2021 Provi fausto: Pernell Fitzgerald MD Diagnosis: 1-2 po q6h prn pain Last Documented On 1 12:40PM By Pernell Fitzgerald ; [facility], [facility] Medications Administered Includes: Administered Medications from this [...] 3 10:04AM ; [facility] Not exercising regularly 12/21/2022 Last [...] Last Documented On 3 10:04AM ; [facility] Smoking Status Unknown Procedures and Surgical History Includes: Procedures from this encounter Procedures Code Diagnosis Performing Provider Service L ocation Service Date use of tobacco assessment performed 1000F Last Documented On 3 10:04AM ; [facility], [facility] patient screened for future fall risk: documentation of any fall with injury in past year 1100F Last Documented On 3 10:04AM ; [facility], [facility] review of medications documented 1160F Last Documented On 3 10:04AM ; [facility], [facility] Surgical History Last Updated History of History of Gallbladder 2022 Last Documented On 3 10:04AM ; [facility] History of hysterectomy 12/21/2022 Last Documented On 3 10:04AM ; [facility] History of total hip replacement 023 Last Documented On 3 10:04AM ; [facility], [facility] Medical History Includes: Medical History addressed during this encounter Description Last Updated History of arthritis 12/21/2022 Last Documented On 3 10:04AM ; [facility] History of depression 12/21/2022 Last Documented On 3 10:04AM ; [facility] History of heart disease 12/21/2022 Last Documented On 3 10:04AM ; [facility] History of Heartburn / Acid Reflux 12/21 Last Documented On 3 10:04AM ; [facility], [facility] History of Hypertension 12/21/2022 Last Documented On 3 10:04AM ; [facility], [facility] History of Irregular Heartbeat 3 Last Documented On 3 10:04AM ; [facility] Recent immunization for flu 07/31/2021 1 12/28/2020 Last Documented On 3 10:04AM ; [facility] No recent immunization for pneumococcal pneumonia 03/27/2021 Last Documented On 3 10:04AM ; [facility] Family History Includes: Family History addressed during this encounter Description Last Updated Diabetes mellitus 12/21/2022 Last Documented On 3 10:04AM ; [facility] Family history of heart disease 12/21/19 23 Last Documented On 3 10:04AM ; [facility] Family history of osteoporosis 3 Last Documented On 3 10:04AM ; [facility] Family history of rheumatoid arthritis 0 12/21/2022 Last Documented On 3 10:04AM ; [facility] Review of Systems Includes: Review of [...] Active Last Documented On 4 10:44AM ; [facility] Note: hyper Encounters Encounter Provider Location Date Check-In Time Check- Out Time Diagnosis Follow Up Pernell Fitzgerald MD [facility] 3 10:02AM 10:52AM Insurance Includes: Active Insurance Policies Plan Name Member ID Group # Subscriber Relationship Effect elena Dates 1 - Medicare Part B [facility] [id number] Karina Wilson Self 05/31/2013 - Unknown 2 - [facility] [employer] [id number] Karina Wilson Self 10/31/19 21 - Unknown Clinical Notes Includes: Clinical Notes from this encounter * Progress note Date Encounter Last Documented by 08/23/2023 Follow Up Last documented on 08/25/2023; 1:29 PM, Pernell Fitzgerald MD; [facility], [facility] Active Problems & Conditions - Joint Pain [...] Care Team - HIRAM PIERRE MD - [facility] - Luh Sesay PA-C
--- OUTSIDE RECORDS SUMMARY | 2025-02-19 13:47 | XMS_ITS | Clinical Summary ---
Author Organization [facility] Address [address] [place] [address] Phone Care Team Providers Care Fire Prevention Research Engineer Name Role Phone Lázaro ISIDRO, Luh Unavailable [phone] Lia FIGUEREDO, Pernell Unavailable [phone] IGNACIO FIGUEREDO, HIRAM Unavailable [phone] Reason for Visit and Chief Complaint The Chief Complaint is: left hip pain Problems Includes: Problems addressed during this encounter and other active Problems All Visits Onset Date Resolved Date Provider Condition S tatus Joint Pain in the Left Hip 03/27/2021 Pernell marshall MD Active Last Documented On 8:21AM ; [facility] Plan of Treatment - Patient screened for future fall risk: documentation of any fall with injury in past year - Last Documented On 05/09/2024 3:41PM ; [facility] Fall Risk Assessment: This patient has been [...] - Last Documented On 05/09/2024 3:41PM ; [facility] Three-view x-ray of the left hip shows good alignment of implants no problems patient will be referred to Neurology for interpretation of her MRI brain results in overall neurologic exam screening exam we will see her back every 5 years for routine surveillance x-rays of the hip or sooner if needed - Last Documented On 05/09/2024 3:41PM ; [facility] Assessments Includes: Assessments from this encounter Findings 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, 2023 - Last Documented On 05/09/2024 3:41PM ; [facility] Medical Equipment - Implanted Devices Includes: Current Devices No Medical Equipment Recorded Medications Includes: Medications discussed during this encounter and other current Medications Current Medications (continue as prescribed) Ondansetron 4 MG Oral Tablet Disintegrating 12/12/2023 Provider: Diagnosis: Last Documented On 4 9:22AM By Albania Darby ; [facility] Sotalol HCl 80 MG Oral Tablet 12/07/2023 Provider: HIRAM PIERRE MD Diagnosis: Last Documented On 4 9:22AM By Albania Darby ; [facility] Levothyroxine Sodium 25 MCG Oral Tablet 12/02/2023 Coni mitchell: HIRAM PIERRE MD Diagnosis: Last Documented On 4 9:22AM By Albania Darby ; [facility] Valsartan-hydroCHLOROthiazid e 320-12.5 MG Oral Tablet 12/02/2023 Provider: HIRAM PIERRE MD Diagnosis: Last Documented On 4 9:22AM By Albania Darby ; [facility] Venlafaxine HCl ER 150 MG Or al Capsule Extended Release 24 Hour 12/02/2023 Provider: HIRAM PIERRE MD Diagnosis: Last Documented On 4 9:22AM By Albania Darby ; [facility] Amoxicillin-Pot Clavulanate 875-125 MG Oral Tablet Provider: Diagnosis: Last Documented On 4 9:22AM By Albania Darby ; [facility] Cetirizine HCl 10 MG Oral Capsule 03/27/2021 Provide r: Diagnosis: Last Documented On 1 9:12AM By Ami Dickerson ; [facility] Tetracycline HCl 500 MG Oral Capsule 01/22/2021 Prov ider: CARLA RUIZ II, MD Diagnosis: Last Documented On 1 8:45AM By Pam Valencia ; [facility] Omeprazole 20 MG Oral Capsul e Delayed Release 01/22/2021 Provider: CARLA RUIZ II, MD Diagnosis: Last Documented On 1 8:45AM By Pam Valencia ; [facility] metroNIDAZOLE 250 MG Oral Tablet 01/22/2021 Provider : CARLA RUIZ II, MD Diagnosis: Last Documented On 1 8:45AM By Pam Valencia ; [facility] FeroSul 325 (65 Fe) MG Oral Tablet 12/22/2020 Provid er: Diagnosis: Last Documented On 1 8:45AM By Pam Valencia ; [facility] Xarelto 20 MG Oral Tablet 12/08/2020 Provider: Diagnosis: Last Documented On 1 8:45AM By Pam Valencia ; [facility] Donepezil HCl 10 MG Oral Tablet 11/13/2020 Provider: TONY CARRERA MD (N) Diagnosis: Last Documented On 1 8:45AM By Pam Valencia ; [facility] Meloxicam 15 MG Oral Tablet 09/06/2020 Provider: Diagnosis: Last Documented On 1 9:12AM By Ami Dickerson ; [facility] Atorvastatin Calcium 10 MG Oral Tablet 06/06/2020 Pr ovider: Diagnosis: Last Documented On 1 9:12AM By Ami Dickerson ; [facility] Past Medications on file oxyCODONE HCl 5 MG Oral Tablet 06/28/2023 - 07/03/2023 Provider: Pernell Fitzgerald MD Diagnosis: 1-2 p o q 6-8h for post op pain Last Documented On 3 8:44AM By Pernell Fitzgerald ; [facility] Meloxicam 15 MG Oral Tablet 06/28/2023 - 07/28/2023 Pr ovider: Pernell Fitzgerald MD Diagnosis: once a day Last Documented On 3 8:44AM By Pernell Fitzgerald ; [facility] Cefadroxil 500 MG Oral Capsule 06/28/2023 - 07/01/2023 Provider: Pernell Fitzgerald MD Diagnosis: twice a day Last Documented On 3 8:44AM By Pernell Fitzgerald ; [facility] traMADol HCl 50 MG Oral Tablet 06/28/2023 - 07/13/2023 Provider: Pernell Fitzgerald MD Diagnosis: 1-2 p o q 6-8h for breakthrough post op pain Last Documented On 3 8:44AM By Pernell Fitzgerald ; [facility] Acetaminophen 500 MG Oral Tablet 06/28/2023 - 07/28/20 23 Provider: Pernell Fitzgerald MD Diagnosis: 2 three times a day , AFTER SURGERY Last Documented On 3 8:29AM By Pernell Fitzgerald ; [facility] Colace 100 MG Oral Capsule 06/28/2023 - 07/28/2023 Pro vider: Pernell Fitzgerald MD Diagnosis: 1-2 tabs daily as needed, AFTER SURGERY Last Documented On 3 8:44AM By Pernell Fitzgerald ; [facility] Ondansetron HCl 4 MG Oral Tablet 06/28/2023 - 07/12/20 23 Provider: Pernell Fitzgerald MD Diagnosis: 1-2 p o q 6-8h as needed for nausea Last Documented On 3 8:44AM By Pernell Fitzgerald ; [facility] Mupirocin 2% External Ointment 06/23/2023 - 06/28/2023 Provider: Pernell Fitzgerald MD Diagnosis: as directed Apply to each no stril with a q tip once a day for 5 days prior to surgery Last Documented On 3 3:24PM By Laurie Pablo ; [facility] Mupirocin 2% External Ointment 06/08/2023 - 06/13/2023 Provider: Pernell Fitzgerald MD Diagnosis: as directed Apply to each no stril with a q tip once a day for 5 days prior to surgery Last Documented On 3 1:53PM By Laurie Pablo ; [facility] Cefadroxil 500 MG Oral Capsule 09/17/2021 - 09/20/2021 Provider: Pernell Fitzgerald MD Diagnosis: twice a day Last Documented On 1 2:48PM By Haley Allen ; [facility] Colace 100 MG Oral Capsule 09/17/2021 - 10/17/2021 Pro vider: Pernell Fitzgerald MD Diagnosis: 1-2 tablets daily, as needed, AFTER SURGERY Last Documented On 1 2:48PM By Haley Allen ; [facility] Zofran 4 MG Oral Tablet 09/17/2021 - 10/17/2021 Provid er: Pernell Fitzgerald MD Diagnosis: take 1 tablet every 6-8hrs for nausea, AFTER ZAIDA ANA Last Documented On 1 2:49PM By Haley Allen ; [facility] oxyCODONE HCl 5 MG Oral Tablet 09/17/2021 - 10/17/2021 Provider: Pernell Fitzgerald MD Diagnosis: take 1-2 tablets every 4-6hrs for post op pain Last Documented On 1 3:02PM By Pernell Fitzgerald ; [facility] Ultram 50 MG Oral Tablet 09/17/2021 - 10/17/2021 Provi fausto: Pernell Fitzgerald MD Diagnosis: 1-2 tablets every 6-8 hours for breakthrough pos t op pain Last Documented On 1 3:02PM By Pernell Fitzgerald ; [facility] Aspirin Adult Low Strength 8 1 MG Oral Tablet Delayed Release 09/17/2021 - 11/01/2021 Provider: Pernell Fitzgerald MD Diagnosis: twice a day Last Documented On 1 2:47PM By Haley Allen ; [facility] Acetaminophen 500 MG Oral Tablet 09/17/2021 - 10/17/20 21 Provider: Pernell Fitzgerald MD Diagnosis: take 2 tablets 3 times daily, AFTER SURGERY Last Documented On 1 2:47PM By Haley Allen ; [facility] oxyCODONE HCl 5 MG Oral Tablet 09/14/2021 - 10/14/2021 Provider: Pernell Fitzgerald MD Diagnosis: take 1-2 tablets every 4-6hrs for post op pain Last Documented On 1 4:52PM By Pernell Fitzgerald ; [facility] Ultram 50 MG Oral Tablet [...] 03/27/2021 Last Documented On 4 10:44AM ; [facility] Smoking Status Unknown Procedures and Surgical History Includes: Procedures from this encounter Procedures Code Diagnosis Performing Provider Service Location Service Date X-RAY EXAM OF KNEE 1 OR 2 VIEWS (RIGHT) 20043 Unilateral primary osteoarthritis, right knee Pernell Fitzgerald MD [facility] 05/08/2024 Last Documented On 4 4:26PM ; [facility] use of tobacco assessment performed 1000F Last Documented On 4 10:44AM ; [facility] patient screened for future fall risk: documentation of any fall with injury in past year 1100F Last Documented On 4 10:44AM ; [facility] review of medications documented 1160F Last Documented On 4 10:44AM ; [facility] Surgical History Last Updated History of History of Gallbladder 2022 Last Documented On 4 10:44AM ; [facility] History of hysterectomy 12/21/2022 Last Documented On 4 10:44AM ; [facility] History of total hip replacement 023 Last Documented On 4 10:44AM ; [facility] Medical History Includes: Medical History addressed during this encounter Description Last Updated History of arthritis 12/21/2022 Last Documented On 4 10:44AM ; [facility] History of depression 12/21/2022 Last Documented On 4 10:44AM ; [facility] History of heart disease 12/21/2022 Last Documented On 4 10:44AM ; [facility] History of Heartburn / Acid Reflux 12/21 Last Documented On 4 10:44AM ; [facility] History of Hypertension 12/21/2022 Last Documented On 4 10:44AM ; [facility] History of Irregular Heartbeat 3 Last Documented On 4 10:44AM ; [facility] Recent immunization for flu 07/31/2021 1 12/28/2020 Last Documented On 4 10:44AM ; [facility] No recent immunization for pneumococcal pneumonia 03/27/2021 Last Documented On 4 10:44AM ; [facility] Family History Includes: Family History addressed during this encounter Description Last Updated Diabetes mellitus 12/21/2022 Last Documented On 4 10:44AM ; [facility] Family history of heart disease 12/21/19 23 Last Documented On 4 10:44AM ; [facility] Family history of osteoporosis 3 Last Documented On 4 10:44AM ; [facility] Family history of rheumatoid arthritis 0 12/21/2022 Last Documented On 4 10:44AM ; [facility] Review of Systems Includes: Review of [...] Active Last Documented On 4 10:44AM ; [facility] Note: hyper Encounters Encounter Provider Location Date Check-In Time Check- Out Time Diagnosis Follow Up Pernell Fitzgerald MD [facility] 4 10:03AM 11:14AM Insurance Includes: Active Insurance Policies Plan Name Member ID Group # Subscriber Relationship Effect elena Dates 1 - Medicare Part B [facility] [id number] Karina Wilson Self 05/31/2013 - Unknown 2 - [facility] [employer] [id number] Karina Wilson Self 10/31/19 21 - Unknown Clinical Notes Includes: Clinical Notes from this encounter * Progress note Date Encounter Last Documented by 05/08/2024 Follow Up Last documented on 05/09/2024; 3:41 PM, Pernell Fitzgerald MD; [facility] Active Problems & Conditions - [...] Care Team - HIRAM PIERRE MD - CLINICAL ORTHOPTIST - Luh Sesay PA-C
[2025-02-19 14:39] VITALS: BP 129/85; PULSE 76; RESP 16; TEMP 36.6; O2SAT 98
[2025-02-19] MEDS: ERTAPENEM SODIUM 1 GM VIAL IM (14:39)
[2025-02-19 15:00] VITALS: BP 132/78; PULSE 74; RESP 16; TEMP 36.6; O2SAT 98
== END 2025-02-19 15:05 | disposition home or self-care (01) ==
LOC: INF 13:44
PROVIDERS: PCP Family Medicine; Visit Provider Student in an Organized Health Care Education/Training Program
DX: N30.00 Acute cystitis without hematuria (principal)
CPT/HCPCS: 96372; J1335

== ENCOUNTER 2025-02-20 12:05 | Outpatient (CLI) | payer MEDICARE, SELFPAY ==
[2025-02-20 12:35] VITALS: BP 121/72; PULSE 70; RESP 18; TEMP 36.7; O2SAT 98
[2025-02-20] MEDS: ERTAPENEM SODIUM 1 GM VIAL IM (12:35)
== END 2025-02-20 12:50 | disposition home or self-care (01) ==
LOC: INF 12:06
PROVIDERS: PCP Family Medicine; Visit Provider Student in an Organized Health Care Education/Training Program
DX: R59.1 Generalized enlarged lymph nodes (principal)
CPT/HCPCS: 96372; J1335

== ENCOUNTER 2025-02-21 12:10 | Outpatient (CLI) | payer MEDICARE, SELFPAY ==
--- OUTSIDE RECORDS SUMMARY | 2025-02-21 12:13 | XMS_ITS | Clinical Summary ---
Author Organization [facility] , [facility] Address [address] [place] [address] Phone Care Team Providers Care Stars Coordinator Name Role Phone Lázaro ISIDRO, Luh Unavailable [phone] Lia FIGUEREDO, Pernell Unavailable [phone] IGNACIO FIGUEREDO, HIRAM Unavailable [phone] Reason for Visit and [...] - Last Documented On 08/09/2023 2:05PM ; [facility] Patient was seen [...] - Last Documented On 08/09/2023 2:05PM ; [facility] Assessments Includes: Assessments from this encounter Findings Left total hip revision - Last Documented On 08/09/2023 2:05PM ; [facility] left hip strain and gastroc strain - Last Documented On 08/09/2023 2:05PM ; [facility], [facility] Medical Equipment - Implanted Devices Includes: Current Devices No Medical Equipment Recorded Medications Includes: Medications discussed during this encounter and other current Medications Current Medications (continue as prescribed) Ondansetron 4 MG Oral Tablet Disintegrating 12/12/2023 Provider: Diagnosis: Last Documented On 4 9:22AM By Albania Darby ; [facility], [facility] Sotalol HCl 80 MG Oral Tablet 12/07/2023 Provider: HIRAM PIERRE MD Diagnosis: Last Documented On 4 9:22AM By Albania Darby ; [facility], [facility] Levothyroxine Sodium 25 MCG Oral Tablet 12/02/2023 Coni mitchell: HIRAM PIERRE MD Diagnosis: Last Documented On 4 9:22AM By Albania Darby ; [facility], [facility] Valsartan-hydroCHLOROthiazid e 320-12.5 MG Oral Tablet 12/02/2023 Provider: HIRAM PIERRE MD Diagnosis: Last Documented On 4 9:22AM By Albania Darby ; [facility], [facility] Venlafaxine HCl ER 150 MG Or al Capsule Extended Release 24 Hour 12/02/2023 Provider: HIRAM PIERRE MD Diagnosis: Last Documented On 4 9:22AM By Albania Darby ; [facility], [facility] Amoxicillin-Pot Clavulanate 875-125 MG Oral Tablet Provider: Diagnosis: Last Documented On 4 9:22AM By Albania Darby ; [facility], [facility] Cetirizine HCl 10 MG Oral Capsule 03/27/2021 Provide r: Diagnosis: Last Documented On 1 9:12AM By Ami Dickerson ; [facility], [facility] Tetracycline HCl 500 MG Oral Capsule 01/22/2021 Prov ider: CARLA RUIZ II, MD Diagnosis: Last Documented On 1 8:45AM By Pam Valencia ; [facility], [facility] Omeprazole 20 MG Oral Capsul e Delayed Release 01/22/2021 Provider: CARLA RUIZ II, MD Diagnosis: Last Documented On 1 8:45AM By Pam Valencia ; [facility] metroNIDAZOLE 250 MG Oral Tablet 01/22/2021 Provider : CARLA RUIZ II, MD Diagnosis: Last Documented On 1 8:45AM By Pam Valencia ; [facility] FeroSul 325 (65 Fe) MG Oral Tablet 12/22/2020 Provid er: Diagnosis: Last Documented On 1 8:45AM By Pam Valencia ; [facility] Xarelto 20 MG Oral Tablet 12/08/2020 Provider: Diagnosis: Last Documented On 8:45AM By Pam Valencia ; [facility] Donepezil HCl 10 MG Oral Tablet 11/13/2020 Provider: TONY CARRERA MD (N) Diagnosis: Last Documented On 8:45AM By Pam Valencia ; [facility] Meloxicam 15 MG Oral Tablet 09/06/2020 Provider: Diagnosis: Last Documented On 1 9:12AM By Ami Dickerson ; [facility] Atorvastatin Calcium 10 MG Oral Tablet 06/06/2020 Pr ovider: Diagnosis: Last Documented On 1 9:12AM By Ami Dickerson ; [facility] Past Medications on file oxyCODONE HCl 5 MG Oral Tablet 06/28/2023 - 07/03/2023 Provider: Pernell Fitzgerald MD Diagnosis: 1-2 p o q 6-8h for post op pain Last Documented On 3 8:44AM By Pernell Fitzgerald ; [facility] Meloxicam 15 MG Oral Tablet 06/28/2023 - 07/28/2023 Pr ovider: Pernell Fitzgerald MD Diagnosis: once a day Last Documented On 3 8:44AM By Pernell Fitzgerald ; [facility] Cefadroxil 500 MG Oral Capsule 06/28/2023 - 07/01/2023 Provider: Pernell Fitzgerald MD Diagnosis: twice a day Last Documented On 3 8:44AM By Pernell Fitzgerald ; [facility] traMADol HCl 50 MG Oral Tablet 06/28/2023 - 07/13/2023 Provider: Pernell Fitzgerald MD Diagnosis: 1-2 p o q 6-8h for breakthrough post op pain Last Documented On 3 8:44AM By Pernell Fitzgerald ; [facility] Acetaminophen 500 MG Oral Tablet 06/28/2023 - 07/28/20 Provider: Pernell Fitzgerald MD Diagnosis: 2 three times a day , AFTER SURGERY Last Documented On 3 8:29AM By Pernell Fitzgerald ; [facility] Colace 100 MG Oral Capsule 06/28/2023 - 07/28/2023 Pro vider: Pernell Fitzgerald MD Diagnosis: 1-2 tabs daily as needed, AFTER SURGERY Last Documented On 3 8:44AM By Pernell Fitzgerald ; [facility] Ondansetron HCl 4 MG Oral Tablet 06/28/2023 - 07/12/20 Provider: Pernell Fitzgerald MD Diagnosis: 1-2 p o q 6-8h as needed for nausea Last Documented On 3 8:44AM By Pernell Fitzgerald ; [facility] Mupirocin 2% External Ointment 06/23/2023 - 06/28/2023 Provider: Pernell Fitzgerald MD Diagnosis: as directed Apply to each no stril with a q tip once a day for 5 days prior to surgery Last Documented On 3 3:24PM By Laurie Pablo ; [facility] Mupirocin 2% External Ointment 06/08/2023 - 06/13/2023 Provider: Pernell Fitzgerald MD Diagnosis: as directed Apply to each no stril with a q tip once a day for 5 days prior to surgery Last Documented On 3 1:53PM By Laurie Pablo ; [facility] Cefadroxil 500 MG Oral Capsule 09/17/2021 - 09/20/2021 Provider: Pernell Fitzgerald MD Diagnosis: twice a day Last Documented On 1 2:48PM By Haley Allen ; [facility] Colace 100 MG Oral Capsule 09/17/2021 - 10/17/2021 Pro vider: Pernell Fitzgerald MD Diagnosis: 1-2 tablets daily, as needed, AFTER SURGERY Last Documented On 1 2:48PM By Haley Allen ; [facility] Zofran 4 MG Oral Tablet 09/17/2021 - 10/17/2021 Provid er: Pernell Fitzgerald MD Diagnosis: take 1 tablet every 6-8hrs for nausea, AFTER ZAIDA ANA Last Documented On 1 2:49PM By Haley Allen ; [facility] oxyCODONE HCl 5 MG Oral Tablet 09/17/2021 - 10/17/2021 Provider: Pernell Fitzgerald MD Diagnosis: take 1-2 tablets every 4-6hrs for post op pain Last Documented On 1 3:02PM By Pernell Fitzgerald ; [facility] Ultram 50 MG Oral Tablet 09/17/2021 - 10/17/2021 Provi fausto: Pernell Fitzgerald MD Diagnosis: 1-2 tablets every 6-8 hours for breakthrough pos t op pain Last Documented On 1 3:02PM By Pernell Fitzgerald ; [facility] Aspirin Adult Low Strength 8 1 MG Oral Tablet Delayed Release 09/17/2021 - 11/01/2021 Provider: Pernell Fitzgerald MD Diagnosis: twice a day Last Documented On 1 2:47PM By Haley Allen ; [facility] Acetaminophen 500 MG Oral Tablet 09/17/2021 - 10/17/20 21 Provider: Pernell Fitzgerald MD Diagnosis: take 2 tablets 3 times daily, AFTER SURGERY Last Documented On 1 2:47PM By Haley Allen ; [facility] oxyCODONE HCl 5 MG Oral Tablet 09/14/2021 - 10/14/2021 Provider: Pernell Fitzgerald MD Diagnosis: take 1-2 tablets every 4-6hrs for post op pain Last Documented On 1 4:52PM By Pernell Ftizgerald ; [facility] Ultram 50 MG Oral Tablet 07/31/2021 - 08/30/2021 Provi fausto: Pernell Fitzgerald MD Diagnosis: 1-2 po q6h prn pain Last Documented On 1 2:44PM By Pernell Fitzgerald ; [facility] Ultram 50 MG Oral Tablet 06/02/2021 - [...] On 3 1:35PM ; [facility] No recent change in diet 12/27/2023 Last Documented On 3 1:35PM ; [facility] Not a current smoker. 12/27/2023 Last Documented On 3 1:35PM ; [facility] Caffeine use 12/21/2022 Last Documented On 3 1:35PM ; [facility] Not exercising regularly 12/21/2022 Last Documented On 3 1:35PM ; [facility] Non-smoker 03/27/2021 Last Documented On 3 1:35PM ; [facility] No recent change in diet 03/27/2021 Last Documented On 3 1:35PM ; [facility] Not a current smoker. 03/27/2021 Last Documented On 3 1:35PM ; [facility] Not using alcohol 03/27/2021 Last Documented On 3 1:35PM ; [facility], [facility] Not using drugs 03/27/2021 Last Documented On 3 1:35PM ; [facility], [facility] Smoking Status Unknown Procedures and Surgical History Includes: Procedures from this encounter Procedures Code Diagnosis Performing Provider Service L ocation Service Date use of tobacco assessment performed 1000F Last Documented On 3 1:36PM ; [facility] patient screened for future fall risk: documentation of any fall with injury in past year 1100F Last Documented On 3 1:36PM ; [facility], [facility] review of medications documented 1160F Last Documented On 3 1:36PM ; [facility], [facility] Surgical History Last Updated History of History of Gallbladder 2022 Last Documented On 3 1:35PM ; [facility], [facility] History of hysterectomy 12/21/2022 Last Documented On 3 1:35PM ; [facility] History of total hip replacement 023 Last Documented On 3 1:35PM ; [facility], [facility] Medical History Includes: Medical History addressed during this encounter Description Last Updated History of arthritis 12/21/2022 Last Documented On 3 1:35PM ; [facility] History of depression 12/21/2022 Last Documented On 3 1:35PM ; [facility] History of heart disease 12/21/2022 Last Documented On 3 1:35PM ; [facility] History of Heartburn / Acid Reflux 12/21 Last Documented On 3 1:35PM ; [facility] History of Hypertension 12/21/2022 Last Documented On 3 1:35PM ; [facility] History of Irregular Heartbeat 3 Last Documented On 3 1:35PM ; [facility] Recent immunization for flu 07/31/2021 1 12/28/2020 Last Documented On 3 1:35PM ; [facility] No recent immunization for pneumococcal pneumonia 03/27/2021 Last Documented On 3 1:35PM ; [facility] Family History Includes: Family History addressed during this encounter Description Last Updated Diabetes mellitus 12/21/2022 Last Documented On 3 1:35PM ; [facility] Family history of heart disease 12/21/19 23 Last Documented On 3 1:35PM ; [facility] Family history of osteoporosis 3 Last Documented On 3 1:35PM ; [facility] Family history of rheumatoid arthritis 0 12/21/2022 Last Documented On 3 1:35PM ; [facility] Review of Systems [...] Active Last Documented On 4 10:44AM ; [facility] Note: hyper Encounters Encounter Provider Location Date Check-In Time Check- Out Time Diagnosis Follow Up Robert Hayward PA-C [facility] 3 1:31PM 2:03PM Insurance Includes: Active Insurance Policies Plan Name Member ID Group # Subscriber Relationship Effect elena Dates 1 - Medicare Part B [facility] [id number] Karina Wilson Self 05/31/2013 - Unknown 2 - [facility] [employer] [id number] Karina Wilson Self 10/31/19 21 - Unknown Clinical Notes Includes: Clinical Notes from this encounter * Progress note Date Encounter Last Documented by 08/09/2023 Follow Up Last documented on 08/09/2023; 2:05 PM, Robert Hayward PA-C; [facility], [facility] Active Problems & Conditions - Joint Pain [...] Care Team - HIRAM PIERRE MD - [employer] - Luh Sesay PA-C
--- OUTSIDE RECORDS SUMMARY | 2025-02-21 12:13 | XMS_ITS | Clinical Summary ---
Author Organization [facility] Address [address] [place] [address] Phone Care Team Providers Care Reading Aide Name Role Phone Lázaro ISIDRO, Luh Unavailable [phone] Lia FIGUEREDO, Pernell Unavailable [phone] IGNACIO FIGUEREDO, HIRAM Unavailable [phone] Reason for Visit and Chief Complaint The Chief Complaint is: left hip pain Problems Includes: Problems addressed during this encounter and other active Problems All Visits Onset Date Resolved Date Provider Condition S tatus Joint Pain in the Left Hip 03/27/2021 Pernell marshall MD Active Last Documented On 8:21AM ; [facility] Plan of Treatment Fall Risk Assessment: [...] - Last Documented On 12/28/2023 8:48AM ; [facility] Patient was seen by myself Robert [...] - Last Documented On 12/28/2023 8:48AM ; [facility], [facility] Assessments Includes: Assessments from this encounter Findings 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, 2023 - Last Documented On 12/28/2023 8:48AM ; [facility] Medical Equipment - Implanted Devices Includes: Current Devices No Medical Equipment Recorded Medications Includes: Medications discussed during this encounter and other current Medications Discontinued / Stopped on this date on 09/09/2020 Valsartan-hydroCHLOROthiazide 320-12.5 MG Oral Tablet Provider: Diagnosis: Last Documented On 4 12:06PM By Lissette De ; [facility], [facility] Venlafaxine HCl ER 150 MG Or al Capsule Extended Release 24 Hour Provider: Diagnosis: Last Documented On 4 12:06PM By Lissette De ; [facility], [facility] Sotalol HCl 80 MG Oral Tablet Provider: Diagnosis: Last Documented On 4 12:06PM By Lissette De ; [facility], [facility] Current Medications (continue as prescribed) Ondansetron 4 MG Oral Tablet Disintegrating 12/12/2023 Provider: Diagnosis: Last Documented On 4 9:22AM By Albania Darby ; [facility], [facility] Sotalol HCl 80 MG Oral Tablet 12/07/2023 Provider: HIRAM PIERRE MD Diagnosis: Last Documented On 4 9:22AM By Albania Darby ; [facility], [facility] Levothyroxine Sodium 25 MCG Oral Tablet 12/02/2023 Coni mitchell: HIRAM PIERRE MD Diagnosis: Last Documented On 4 9:22AM By Albania Darby ; [facility], [facility] Valsartan-hydroCHLOROthiazid e 320-12.5 MG Oral Tablet 12/02/2023 Provider: HIRAM PIERRE MD Diagnosis: Last Documented On 4 9:22AM By Albania Darby ; [facility], [facility] Venlafaxine HCl ER 150 MG Or al Capsule Extended Release 24 Hour 12/02/2023 Provider: HIRAM PIERRE MD Diagnosis: Last Documented On 4 9:22AM By Albania Darby ; [facility] Amoxicillin-Pot Clavulanate 875-125 MG Oral Tablet Provider: Diagnosis: Last Documented On 4 9:22AM By Albania Darby ; [facility] Cetirizine HCl 10 MG Oral Capsule 03/27/2021 Provide r: Diagnosis: Last Documented On 1 9:12AM By Ami Dickerson ; [facility] Tetracycline HCl 500 MG Oral Capsule 01/22/2021 Prov ider: CARLA RUIZ II, MD Diagnosis: Last Documented On 1 8:45AM By Pam Valencia ; [facility] Omeprazole 20 MG Oral Capsul e Delayed Release 01/22/2021 Provider: CARLA RUIZ II, MD Diagnosis: Last Documented On 8:45AM By Pam Valencia ; [facility] metroNIDAZOLE 250 MG Oral Tablet 01/22/2021 Provider : CARLA RUIZ II, MD Diagnosis: Last Documented On 1 8:45AM By Pam Valencia ; [facility] FeroSul 325 (65 Fe) MG Oral Tablet 12/22/2020 Provid er: Diagnosis: Last Documented On 1 8:45AM By Pam Valencia ; [facility] Xarelto 20 MG Oral Tablet 12/08/2020 Provider: Diagnosis: Last Documented On 1 8:45AM By Pam Valencia ; [facility] Donepezil HCl 10 MG Oral Tablet 11/13/2020 Provider: TONY CARRERA MD (N) Diagnosis: Last Documented On 1 8:45AM By Pam Valencia ; [facility] Meloxicam 15 MG Oral Tablet 09/06/2020 Provider: Diagnosis: Last Documented On 1 9:12AM By Ami Dickerson ; [facility] Atorvastatin Calcium 10 MG Oral Tablet 06/06/2020 Pr ovider: Diagnosis: Last Documented On 1 9:12AM By Ami Dickerson ; [facility] Past Medications on file oxyCODONE HCl 5 MG Oral Tablet 06/28/2023 - 07/03/2023 Provider: Pernell Fitzgerald MD Diagnosis: 1-2 p o q 6-8h for post op pain Last Documented On 3 8:44AM By Pernell Fitzgerald ; [facility], [facility] Meloxicam 15 MG Oral Tablet 06/28/2023 - 07/28/2023 Pr ovider: Pernell Fitzgerald MD Diagnosis: once a day Last Documented On 3 8:44AM By Pernell Fitzgerald ; [facility], [facility] Cefadroxil 500 MG Oral Capsule 06/28/2023 - 07/01/2023 Provider: Pernell Fitzgerald MD Diagnosis: twice a day Last Documented On 3 8:44AM By Pernell Fitzgerald ; [facility] traMADol HCl 50 MG Oral Tablet 06/28/2023 - 07/13/2023 Provider: Pernell Fitzgerald MD Diagnosis: 1-2 p o q 6-8h for breakthrough post op pain Last Documented On 3 8:44AM By Pernell Fitzgerald ; [facility] Acetaminophen 500 MG Oral Tablet 06/28/2023 - 07/28/20 Provider: Pernell Fitzgerald MD Diagnosis: 2 three times a day , AFTER SURGERY Last Documented On 3 8:29AM By Gimenezshannan Fitzgerald ; [facility], [facility] Colace 100 MG Oral Capsule 06/28/2023 - 07/28/2023 Pro vider: Pernell Fitzgerald MD Diagnosis: 1-2 tabs daily as needed, AFTER SURGERY Last Documented On 3 8:44AM By Pernell Fitzgerald [facility], [facility] Ondansetron HCl 4 MG Oral Tablet 06/28/2023 - 07/12/20 Provider: Pernell Fitzgerald MD Diagnosis: 1-2 p o q 6-8h as needed for nausea Last Documented On 3 8:44AM By Pernell Fitzgerald ; [facility], [facility] Mupirocin 2% External Ointment 06/23/2023 - 06/28/2023 Provider: Pernell Fitzgerald MD Diagnosis: as directed Apply to each no stril with a q tip once a day for 5 days prior to surgery Last Documented On 3 3:24PM By Laurie Pablo ; [facility] Mupirocin 2% External Ointment 06/08/2023 - 06/13/2023 Provider: Pernell Fitzgerald MD Diagnosis: as directed Apply to each no stril with a q tip once a day for 5 days prior to surgery Last Documented On 3 1:53PM By Laurie Pablo ; [facility], [facility] Cefadroxil 500 MG Oral Capsule 09/17/2021 - 09/20/2021 Provider: Pernell Fitzgerald MD Diagnosis: twice a day Last Documented On 1 2:48PM By Haley Allen ; [facility], [facility] Colace 100 MG Oral Capsule 09/17/2021 - 10/17/2021 Pro vider: Pernell Fitzgerald MD Diagnosis: 1-2 tablets daily, as needed, AFTER SURGERY Last Documented On 1 2:48PM By Haley Allen ; [facility], [facility] Zofran 4 MG Oral Tablet 09/17/2021 - 10/17/2021 Provid er: Pernell Fitzgerald MD Diagnosis: take 1 tablet every 6-8hrs for nausea, AFTER ZAIDA ANA Last Documented On 1 2:49PM By Haley Allen ; [facility], [facility] oxyCODONE HCl 5 MG Oral Tablet 09/17/2021 - 10/17/2021 Provider: Pernell Fitzgerald MD Diagnosis: take 1-2 tablets every 4-6hrs for post op pain Last Documented On 1 3:02PM By Pernell Fitzgerald ; [facility], [facility] Ultram 50 MG Oral Tablet 09/17/2021 - 10/17/2021 Provi fausto: Pernell Fitzgerald MD Diagnosis: 1-2 tablets every 6-8 hours for breakthrough pos t op pain Last Documented On 1 3:02PM By Pernell Fitzgerald ; [facility], [facility] Aspirin Adult Low Strength 8 1 MG Oral Tablet Delayed Release 09/17/2021 - 11/01/2021 Provider: Pernell Fitzgerald MD Diagnosis: twice a day Last Documented On 1 2:47PM By Haley Allen ; [facility], [facility] Acetaminophen 500 MG Oral Tablet 09/17/2021 - 10/17/20 21 Provider: Pernell Fitzgerald MD Diagnosis: take 2 tablets 3 times daily, AFTER SURGERY Last Documented On 1 2:47PM By Haley Allen ; [facility], [facility] oxyCODONE HCl 5 MG Oral Tablet 09/14/2021 - 10/14/2021 Provider: Pernell Fitzgerald MD Diagnosis: take 1-2 tablets every 4-6hrs for post op pain Last Documented On 1 4:52PM By Pernell Fitzgerald ; [facility], [facility] Ultram 50 MG Oral Tablet 07/31/2021 - 08/30/2021 Provi fausto: Pernell Fitzgerald MD Diagnosis: 1-2 po q6h prn pain Last Documented On 1 2:44PM By Pernell Fitzgerald ; [facility], [facility] Ultram 50 MG Oral Tablet 06/02/2021 - 07/02/2021 Provi fausto: Pernell Fitzgerald MD Diagnosis: 1-2 po q6h prn pain Last Documented On 1 12:40PM By Pernell Fitzgerald ; [facility], [facility] Medications Administered Includes: Administered Medications from this encounter No Administered Medications Recorded Vital Signs Includes: Vital Signs from this encounter Vital Name 12/27/2023 09:42A Height (in) 68 Weight (lb) 162 Body Mass Index 24.6 Body Surface Area 1.9 Pain Level 4 Note: Last Documented: On 12/27/2023 9:42AM ; [facility], [facility] Results Includes: Results discussed during this [...] Last Documented On 4 8:48AM ; [facility] No recent change in diet 12/27/2023 Last Documented On 4 8:48AM ; [facility] Not a current smoker. 12/27/2023 Last Documented On 4 8:48AM ; [facility] Caffeine use 12/21/2022 Last Documented On 4 9:22AM ; [facility] Not exercising regularly 12/21/2022 Last Documented On 4 9:22AM ; [facility] Not using alcohol 03/27/2021 Last Documented On 4 9:22AM ; [facility] Not using drugs 03/27/2021 Last Documented On 4 9:22AM ; [facility] Smoking Status Unknown Procedures and Surgical History Includes: Procedures from this encounter Procedures Code Diagnosis Performing Provider Service L ocation Service Date use of tobacco assessment performed 1000F Last Documented On 4 9:22AM ; [facility] patient screened for future fall risk: documentation of any fall with injury in past year 1100F Last Documented On 4 9:22AM ; [facility] review of medications documented 1160F Last Documented On 4 9:22AM ; [facility] Surgical History Last Updated History of History of Gallbladder 2022 Last Documented On 4 9:22AM ; [facility] History of hysterectomy 12/21/2022 Last Documented On 4 9:22AM ; [facility] History of total hip replacement 023 Last Documented On 4 9:22AM ; [facility] Medical History Includes: Medical History addressed during this encounter Description Last Updated History of arthritis 12/21/2022 Last Documented On 4 9:22AM ; [facility] History of depression 12/21/2022 Last Documented On 4 9:22AM ; [facility] History of heart disease 12/21/2022 Last Documented On 4 9:22AM ; [facility], [facility] History of Heartburn / Acid Reflux 12/21 Last Documented On 4 9:22AM ; [facility], [facility] History of Hypertension 12/21/2022 Last Documented On 4 9:22AM ; [facility] History of Irregular Heartbeat 3 Last Documented On 4 9:22AM ; [facility] Recent immunization for flu 07/31/2021 1 12/28/2020 Last Documented On 4 9:22AM ; [facility], [facility] No recent immunization for pneumococcal pneumonia 03/27/2021 Last Documented On 4 9:22AM ; [facility], [facility] Family History Includes: Family History addressed during this encounter Description Last Updated Diabetes mellitus 12/21/2022 Last Documented On 4 9:22AM ; [facility] Family history of heart disease 12/21/19 23 Last Documented On 4 9:22AM ; [facility], [facility] Family history of osteoporosis 3 Last Documented On 4 9:22AM ; [facility] Family history of rheumatoid arthritis 0 12/21/2022 Last Documented On 4 9:22AM ; [facility], [facility] Review of Systems Includes: Review [...] Active Last Documented On 4 10:44AM ; [facility], [facility] Note: hyper Encounters Encounter Provider Location Date Check-In Time Check- Out Time Diagnosis Follow Up Pernell Fitzgerald MD [facility] 4 9:13AM 10:08AM Insurance Includes: Active Insurance Policies Plan Name Member ID Group # Subscriber Relationship Effect elena Dates 1 - Medicare Part B [facility] [id number] Karina Wilson Self 05/31/2013 - Unknown 2 - [facility] [employer] [id number] Karina Wilson Self 10/31/19 21 - Unknown Clinical Notes Includes: Clinical Notes from this encounter * Progress note Date Encounter Last Documented by 12/27/2023 Follow Up Last documented on 12/28/2023; 8:48 AM, Pernell Fitzgerald MD; [facility] Active Problems & Conditions - Joint [...] the had seen him previous neurologist in [facility] [place] it was diagnosed with Alzheimer's but [...] Care Team - HIRAM PIERRE MD - [employer] - Luh Sesay PA-C
--- OUTSIDE RECORDS SUMMARY | 2025-02-21 12:13 | XMS_ITS | Clinical Summary ---
Author Organization [facility] , [facility] Address [address] [place] [address] Phone Care Team Providers Care Child Study Team Director Name Role Phone Lázaro ISIDRO, Luh Unavailable [phone] Lia FIGUEREDO, Pernell Unavailable [phone] IGNACIO FIGUEREDO, HIRAM Unavailable [phone] Reason for Visit and Chief Complaint The Chief Complaint is: Right hip pov Problems Includes: Problems addressed during this encounter and other active Problems All Visits Onset Date Resolved Date Provider Condition S tatus Joint Pain in the Left Hip 03/27/2021 Pernell marshall MD Active Last Documented On 8:21AM ; [facility] Plan of Treatment Fall Risk [...] - Last Documented On 07/27/2023 12:15PM ; [facility] Patient was seen by myself Robert Hayward PA-C. Patient will follow up [address] Fitzgerald patient would like to try outpatient physical therapy we will set her up to do this and then see her back with him in 3 weeks. 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/2023 - Last Documented On 07/27/2023 12:15PM ; [facility], [facility] Medical Equipment - Implanted Devices Includes: Current Devices No Medical Equipment Recorded Medications Includes: Medications discussed during this encounter and other current Medications Current Medications (continue as prescribed) Ondansetron 4 MG Oral Tablet Disintegrating 12/12/2023 Provider: Diagnosis: Last Documented On 4 9:22AM By Albania Darby ; [facility], [facility] Sotalol HCl 80 MG Oral Tablet 12/07/2023 Provider: HIRAM PIERRE MD Diagnosis: Last Documented On 4 9:22AM By Albania Darby ; [facility], [facility] Levothyroxine Sodium 25 MCG Oral Tablet 12/02/2023 Coni mitchell: HIRAM PIERRE MD Diagnosis: Last Documented On 4 9:22AM By Albania Darby ; [facility], [facility] Valsartan-hydroCHLOROthiazid e 320-12.5 MG Oral Tablet 12/02/2023 Provider: HIRAM PIERRE MD Diagnosis: Last Documented On 4 9:22AM By Albania Darby ; [facility], [facility] Venlafaxine HCl ER 150 MG Or al Capsule Extended Release 24 Hour 12/02/2023 Provider: HIRAM PIERRE MD Diagnosis: Last Documented On 4 9:22AM By Albania Darby ; [facility], [facility] Amoxicillin-Pot Clavulanate 875-125 MG Oral Tablet Provider: Diagnosis: Last Documented On 4 9:22AM By Albania Darby ; [facility], [facility] Cetirizine HCl 10 MG Oral Capsule 03/27/2021 Provide r: Diagnosis: Last Documented On 1 9:12AM By Ami Dickerson ; [facility], [facility] Tetracycline HCl 500 MG Oral Capsule 01/22/2021 Prov ider: CARLA RUIZ II, MD Diagnosis: Last Documented On 1 8:45AM By Pam Valencia ; [facility], [facility] Omeprazole 20 MG Oral Capsul e Delayed Release 01/22/2021 Provider: CARLA RUIZ II, MD Diagnosis: Last Documented On 1 8:45AM By Pam Valencia ; [facility], [facility] metroNIDAZOLE 250 MG Oral Tablet 01/22/2021 [...] Dickerson ; [facility], [facility] Atorvastatin Calcium 10 MG Oral Tablet 06/06/2020 Pr ovider: Diagnosis: Last Documented On 1 9:12AM By Ami Dickerson ; [facility], [facility] Past Medications on file oxyCODONE HCl 5 MG Oral Tablet 06/28/2023 - 07/03/2023 Provider: Pernell Fitzgerald MD Diagnosis: 1-2 p o q 6-8h for post op pain Last Documented On 3 8:44AM By Pernell Fitzgerald ; [facility], [facility] Meloxicam 15 MG Oral Tablet 06/28/2023 - 07/28/2023 Pr ovider: Pernell Fitzgerald MD Diagnosis: once a day Last Documented On 3 8:44AM By Pernell Fitzgerald ; [facility], [facility] Cefadroxil 500 MG Oral Capsule 06/28/2023 - 07/01/2023 Provider: Pernell Fitzgerald MD Diagnosis: twice a day Last Documented On 3 8:44AM By Pernell Fitzgerald ; [facility], [facility] traMADol HCl 50 MG Oral Tablet 06/28/2023 - 07/13/2023 Provider: Pernell Fitzgerald MD Diagnosis: 1-2 p o q 6-8h for breakthrough post op pain Last Documented On 3 8:44AM By Pernell Fitzgerald ; [facility], [facility] Acetaminophen 500 MG Oral Tablet 06/28/2023 - 07/28/20 Provider: Pernell Fitzgerald MD Diagnosis: 2 three times a day , AFTER SURGERY Last Documented On 3 8:29AM By Pernell Fitzgerald ; [facility], [facility] Colace 100 MG Oral Capsule 06/28/2023 - 07/28/2023 Pro vider: Pernell Fitzgerald MD Diagnosis: 1-2 tabs daily as needed, AFTER SURGERY Last Documented On 3 8:44AM By Pernell Fitzgerald ; [facility], [facility] Ondansetron HCl 4 MG Oral Tablet 06/28/2023 - 07/12/20 Provider: Pernell Fitzgerald MD Diagnosis: 1-2 p o q 6-8h as needed for nausea Last Documented On 3 8:44AM By Pernell Fitzgerald ; [facility], [facility] Mupirocin 2% External Ointment 06/23/2023 - 06/28/2023 Provider: Pernell Fitzgerald MD Diagnosis: as directed Apply to each no stril with a q tip once a day for 5 days prior to surgery Last Documented On 3 3:24PM By Laurie Pablo ; [facility], [facility] Mupirocin 2% External Ointment 06/08/2023 - 06/13/2023 Provider: Pernell Fitzgerald MD Diagnosis: as directed Apply to each no stril with a q tip once a day for 5 days prior to surgery Last Documented On 3 1:53PM By Laurie Pablo ; [facility], [facility] Cefadroxil 500 MG Oral Capsule 09/17/2021 - 09/20/2021 Provider: Pernell Fitzgerald MD Diagnosis: twice a day Last Documented On 1 2:48PM By Haley Allen ; [facility], [facility] Colace 100 MG Oral Capsule 09/17/2021 - 10/17/2021 Pro vider: Pernell Fitzgerald MD Diagnosis: 1-2 tablets daily, as needed, AFTER SURGERY Last Documented On 1 2:48PM By Haley Allen ; [facility], [facility] Zofran 4 MG Oral Tablet 09/17/2021 [...] Fitzgerald ; [facility], [facility] Aspirin Adult Low Strength 8 1 MG Oral Tablet Delayed Release 09/17/2021 - 11/01/2021 Provider: Pernell Fitzgerald MD Diagnosis: twice a day Last Documented On 1 2:47PM By Haley Allen ; [facility] Acetaminophen 500 MG Oral Tablet [...] pain Last Documented On 1 4:52PM By Perenll Fitzgerald ; [facility] Ultram 50 MG Oral Tablet 07/31/2021 - 08/30/2021 Provi fausto: Pernell Fitzgerald MD Diagnosis: 1-2 po q6h prn pain Last Documented On 1 2:44PM By Pernell Fitzgerald ; [facility] Ultram 50 MG Oral Tablet 06/02/2021 - 07/02/2021 Provi fausto: Pernell Fitzgerald MD Diagnosis: 1-2 po q6h prn pain Last Documented On 1 12:40PM By Pernell Fitzgerald ; [facility], [facility] Medications Administered Includes: Administered Medications from [...] 12/27/2023 Last Documented On 3 2:26PM ; [facility], [facility] No recent change in diet 12/27/2023 Last Documented On 3 2:26PM ; [facility], [facility] Not a current smoker. 12/27/2023 Last Documented On 3 2:26PM ; [facility] Caffeine use 12/21/2022 Last Documented On 3 2:26PM ; [facility], [facility] Not exercising regularly 12/21/2022 Last Documented On 3 2:26PM ; [facility] Non-smoker 03/27/2021 Last Documented On 3 2:26PM ; [facility], [facility] No recent change in diet 03/27/2021 Last Documented On 3 2:26PM ; [facility], [facility] Not a current smoker. 03/27/2021 Last Documented On 3 2:26PM ; [facility] Not using alcohol 03/27/2021 Last Documented On 3 2:26PM ; [facility], [facility] Not using drugs 03/27/2021 Last Documented On 3 2:26PM ; [facility] Smoking Status Unknown Procedures and Surgical History Includes: Procedures from this encounter Procedures Code Diagnosis Performing Provider Service L ocation Service Date use of tobacco assessment performed 1000F Last Documented On 3 2:26PM ; [facility], [facility] patient screened for future fall risk: documentation of any fall with injury in past year 1100F Last Documented On 3 2:26PM ; [facility] review of medications documented 1160F Last Documented On 3 2:26PM ; [facility], [facility] Surgical History Last Updated History of History of Gallbladder 2022 Last Documented On 3 2:26PM ; [facility] History of hysterectomy 12/21/2022 Last Documented On 3 2:26PM ; [facility], [facility] History of total hip replacement 023 Last Documented On 3 2:26PM ; [facility] Medical History Includes: Medical History addressed during this encounter Description Last Updated History of arthritis 12/21/2022 Last Documented On 3 2:26PM ; [facility] History of depression 12/21/2022 Last Documented On 3 2:26PM ; [facility] History of heart disease 12/21/2022 Last Documented On 3 2:26PM ; [facility] History of Heartburn / Acid Reflux 12/21 Last Documented On 3 2:26PM ; [facility] History of Hypertension 12/21/2022 Last Documented On 3 2:26PM ; [facility], [facility] History of Irregular Heartbeat 3 Last Documented On 3 2:26PM ; [facility] Recent immunization for flu 07/31/2021 1 12/28/2020 Last Documented On 3 2:26PM ; [facility] No recent immunization for pneumococcal pneumonia 03/27/2021 Last Documented On 3 2:26PM ; [facility] Family History Includes: Family History addressed during this encounter Description Last Updated Diabetes mellitus 12/21/2022 Last Documented On 3 2:26PM ; [facility] Family history of heart disease 12/21/19 23 Last Documented On 3 2:26PM ; [facility] Family history of osteoporosis 3 Last Documented On 3 2:26PM ; [facility] Family history of rheumatoid arthritis 0 12/21/2022 Last Documented On 3 2:26PM ; [facility] Review of Systems Includes: Review [...] Active Last Documented On 4 10:44AM ; [facility] Note: hyper Encounters Encounter Provider Location Date Check-In Time Check- Out Time Diagnosis Follow Up Robert Hayward PA-C [facility] 3 1:50PM 3:25PM Insurance Includes: Active Insurance Policies Plan Name Member ID Group # Subscriber Relationship Effect elena Dates 1 - Medicare Part B [facility] [id number] Karina Wilson Self 05/31/2013 - Unknown 2 - [facility] [employer] [id number] Karina Wilson Self 10/31/19 21 - Unknown Clinical Notes Includes: Clinical Notes from this encounter * Progress note Date Encounter Last Documented by 07/26/2023 Follow Up Last documented on 07/27/2023; 12:15 PM, Robert Obando; [facility], [facility] Active Problems & Conditions - Joint [...] Care Team - HIRAM PIERRE MD - [employer] ATTENDANT - Luh Sesay PA-C
--- OUTSIDE RECORDS SUMMARY | 2025-02-21 12:13 | XMS_ITS | Clinical Summary ---
Author Organization [facility] , [facility] Address [address] [place] [address] Phone Care Team Providers Care Assembly Machine Tender Name Role Phone Lázaro ISIDRO, Luh Unavailable [phone] Lia FIGUEREDO, Pernell Unavailable [phone] IGNACIO FIGUEREDO, HIRAM Unavailable [phone] Reason for Visit and Chief Complaint The Chief Complaint is: left hip pain Problems Includes: Problems addressed during this encounter and other active Problems All Visits Onset Date Resolved Date Provider Condition S tatus Joint Pain in the Left Hip 03/27/2021 Pernell marshall MD Active Last Documented On 8:21AM ; [facility] Plan of Treatment Fall Risk Assessment: [...] - Last Documented On 08/25/2023 1:29PM ; [facility] Patient was seen by myself and Dr. Fitzgerald. Robert Hayward PA-C Patient will follow- up 3 months repeat x-rays of her left hip. 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/2023 - Last Documented On 08/25/2023 1:29PM ; [facility] Medical Equipment - Implanted Devices Includes: Current Devices No Medical Equipment Recorded Medications Includes: Medications discussed during this encounter and other current Medications Current Medications (continue as prescribed) Ondansetron 4 MG Oral Tablet Disintegrating 12/12/2023 Provider: Diagnosis: Last Documented On 4 9:22AM By Albania Darby ; [facility], [facility] Sotalol HCl 80 MG Oral Tablet 12/07/2023 Provider: HIRAM PIERRE MD Diagnosis: Last Documented On 4 9:22AM By Albania Darby ; [facility], [facility] Levothyroxine Sodium 25 MCG Oral Tablet 12/02/2023 Coni mitchell: HIRAM PIERRE MD Diagnosis: Last Documented On 4 9:22AM By Albania Darby ; [facility], [facility] Valsartan-hydroCHLOROthiazid e 320-12.5 MG Oral Tablet 12/02/2023 Provider: HIRAM PIERRE MD Diagnosis: Last Documented On 4 9:22AM By Albania Darby ; [facility], [facility] Venlafaxine HCl ER 150 MG Or al Capsule Extended Release 24 Hour 12/02/2023 Provider: HIRAM PIERRE MD Diagnosis: Last Documented On 4 9:22AM By Albania Darby ; [facility], [facility] Amoxicillin-Pot Clavulanate 875-125 MG Oral Tablet Provider: Diagnosis: Last Documented On 4 9:22AM By Albania Darby ; [facility], [facility] Cetirizine HCl 10 MG Oral Capsule 03/27/2021 Provide r: Diagnosis: Last Documented On 1 9:12AM By Ami Dickerson ; [facility], [facility] Tetracycline HCl 500 MG Oral Capsule 01/22/2021 Prov ider: CARLA RUIZ II, MD Diagnosis: Last Documented On 1 8:45AM By Pam Valencia ; [facility], [facility] Omeprazole 20 MG Oral Capsul e Delayed Release 01/22/2021 Provider: CARLA RUIZ II, MD Diagnosis: Last Documented On 1 8:45AM By Pam Valencia ; [facility] metroNIDAZOLE 250 MG Oral Tablet 01/22/2021 Provider : CARLA RUIZ II, MD Diagnosis: Last Documented On 1 8:45AM By Pam Valencia ; [facility] FeroSul 325 (65 Fe) MG Oral Tablet 12/22/2020 Provid er: Diagnosis: Last Documented On 1 8:45AM By Pam Valencia ; [facility] Xarelto 20 MG Oral Tablet 12/08/2020 Provider: Diagnosis: Last Documented On 1 8:45AM By Pam Valencia ; [facility] Donepezil HCl 10 MG Oral Tablet 11/13/2020 Provider: TONY CARRERA MD (N) Diagnosis: Last Documented On 1 8:45AM By Pam Valencia ; [facility] Meloxicam 15 MG Oral Tablet 09/06/2020 Provider: Diagnosis: Last Documented On 1 9:12AM By Ami Dickerson ; [facility] Atorvastatin Calcium 10 MG Oral Tablet 06/06/2020 Pr ovider: Diagnosis: Last Documented On 1 9:12AM By Ami Dickerson ; [facility], [facility] Past Medications on file oxyCODONE HCl 5 MG Oral Tablet 06/28/2023 - 07/03/2023 Provider: Pernell Fitzgerald MD Diagnosis: 1-2 p o q 6-8h for post op pain Last Documented On 3 8:44AM By Pernell Fitzgerald ; [facility] Meloxicam 15 MG Oral Tablet 06/28/2023 - 07/28/2023 Pr ovider: Pernell Fitzgerald MD Diagnosis: once a day Last Documented On 3 8:44AM By Pernell Fitzgerald ; [facility] Cefadroxil 500 MG Oral Capsule 06/28/2023 - 07/01/2023 Provider: Pernell Fitzgerald MD Diagnosis: twice a day Last Documented On 3 8:44AM By Pernell Fitzgerald ; [facility] traMADol HCl 50 MG Oral Tablet 06/28/2023 - 07/13/2023 Provider: Pernell Fitzgerald MD Diagnosis: 1-2 p o q 6-8h for breakthrough post op pain Last Documented On 3 8:44AM By Pernell Fitzgerald ; [facility] Acetaminophen 500 MG Oral Tablet 06/28/2023 - 07/28/20 Provider: Pernell Fitzgerald MD Diagnosis: 2 three times a day , AFTER SURGERY Last Documented On 3 8:29AM By Pernell Fitzgerald ; [facility], [facility] Colace 100 MG Oral Capsule 06/28/2023 - 07/28/2023 Pro vider: Pernell Fitzgerald MD Diagnosis: 1-2 tabs daily as needed, AFTER SURGERY Last Documented On 3 8:44AM By Pernell Fitzgerald ; [facility] Ondansetron HCl 4 MG Oral Tablet 06/28/2023 - 07/12/20 Provider: Pernell Fitzgerald MD Diagnosis: 1-2 p o q 6-8h as needed for nausea Last Documented On 3 8:44AM By Pernell Fitzgerald ; [facility] Mupirocin 2% External Ointment 06/23/2023 - 06/28/2023 Provider: Pernell Fitzgerald MD Diagnosis: as directed Apply to each no stril with a q tip once a day for 5 days prior to surgery Last Documented On 3 3:24PM By Laurie Pablo ; [facility] Mupirocin 2% External Ointment 06/08/2023 - 06/13/2023 Provider: Pernell Fitzgerald MD Diagnosis: as directed Apply to each no stril with a q tip once a day for 5 days prior to surgery Last Documented On 3 1:53PM By Laurie Pablo ; [facility] Cefadroxil 500 MG Oral Capsule 09/17/2021 - 09/20/2021 Provider: Pernell Fitzgerald MD Diagnosis: twice a day Last Documented On 1 2:48PM By Haley Allen ; [facility] Colace 100 MG Oral Capsule 09/17/2021 - 10/17/2021 Pro vider: Pernell Fitzgerald MD Diagnosis: 1-2 tablets daily, as needed, AFTER SURGERY Last Documented On 1 2:48PM By Haley Allen ; [facility] Zofran 4 MG Oral Tablet 09/17/2021 - 10/17/2021 Provid er: Pernell Fitzgerald MD Diagnosis: take 1 tablet every 6-8hrs for nausea, AFTER ZAIDA ANA Last Documented On 1 2:49PM By Haley Allen ; [facility] oxyCODONE HCl 5 MG Oral Tablet 09/17/2021 - 10/17/2021 Provider: Pernell Fitzgerald MD Diagnosis: take 1-2 tablets every 4-6hrs for post op pain Last Documented On 1 3:02PM By Pernell Fitzgerald ; [facility] Ultram 50 MG Oral Tablet 09/17/2021 - 10/17/2021 Provi fausto: Pernell Fitzgerald MD Diagnosis: 1-2 tablets every 6-8 hours for breakthrough pos t op pain Last Documented On 1 3:02PM By Pernell Fitzgerald ; [facility] Aspirin Adult Low Strength 8 1 MG Oral Tablet Delayed Release 09/17/2021 - 11/01/2021 Provider: Pernell Fitzgerald MD Diagnosis: twice a day Last Documented On 1 2:47PM By Haley Allen ; [facility] Acetaminophen 500 MG Oral Tablet 09/17/2021 - 10/17/20 21 Provider: Pernell Fitzgerald MD Diagnosis: take 2 tablets 3 times daily, AFTER SURGERY Last Documented On 1 2:47PM By Haley Allen ; [facility] oxyCODONE HCl 5 MG Oral Tablet 09/14/2021 - 10/14/2021 Provider: Pernell Fitzgerald MD Diagnosis: take 1-2 tablets every 4-6hrs for post op pain Last Documented On 1 4:52PM By Pernell Fitzgerald ; [facility] Ultram 50 MG Oral Tablet 07/31/2021 - 08/30/2021 Provi fausto: Pernell Fitzgerald MD Diagnosis: 1-2 po q6h prn pain Last Documented On 1 2:44PM By Pernell Fitzgerald ; [facility] Ultram 50 MG Oral Tablet 06/02/2021 - 07/02/2021 Provi fausto: Pernell Fitzgerald MD Diagnosis: 1-2 po q6h prn pain Last Documented On 1 12:40PM By Pernell Fitzgerald ; [facility] Medications Administered Includes: Administered Medications from this [...] Last Documented On 3 10:04AM ; [facility] Smoking Status Unknown Procedures and Surgical History Includes: Procedures from this encounter Procedures Code Diagnosis Performing Provider Service L ocation Service Date use of tobacco assessment performed 1000F Last Documented On 3 10:04AM ; [facility] patient screened for future fall risk: documentation of any fall with injury in past year 1100F Last Documented On 3 10:04AM ; [facility], [facility] review of medications documented 1160F Last Documented On 3 10:04AM ; [facility], [facility] Surgical History Last Updated History of History of Gallbladder 2022 Last Documented On 3 10:04AM ; [facility] History of hysterectomy 12/21/2022 Last Documented On 3 10:04AM ; [facility] History of total hip replacement 023 Last Documented On 3 10:04AM ; [facility], [facility] Medical History Includes: Medical History addressed during this encounter Description Last Updated History of arthritis 12/21/2022 Last Documented On 3 10:04AM ; [facility] History of depression 12/21/2022 Last Documented On 3 10:04AM ; [facility] History of heart disease 12/21/2022 Last Documented On 3 10:04AM ; [facility] History of Heartburn / Acid Reflux 12/21 Last Documented On 3 10:04AM ; [facility], [facility] History of Hypertension 12/21/2022 Last Documented On 3 10:04AM ; [facility] History of Irregular Heartbeat 3 Last Documented On 3 10:04AM ; [facility] Recent immunization for flu 07/31/2021 1 12/28/2020 Last Documented On 3 10:04AM ; [facility] No recent immunization for pneumococcal pneumonia 03/27/2021 Last Documented On 3 10:04AM ; [facility] Family History Includes: Family History addressed during this encounter Description Last Updated Diabetes mellitus 12/21/2022 Last Documented On 3 10:04AM ; [facility] Family history of heart disease 12/21/19 23 Last Documented On 3 10:04AM ; [facility] Family history of osteoporosis 3 Last Documented On 3 10:04AM ; [facility] Family history of rheumatoid arthritis 0 12/21/2022 Last Documented On 3 10:04AM ; [facility] Review of Systems Includes: Review of [...] Active Last Documented On 4 10:44AM ; [facility] Note: hyper Encounters Encounter Provider Location Date Check-In Time Check- Out Time Diagnosis Follow Up Pernell Fitzgerald MD [facility] 3 10:02AM 10:52AM Insurance Includes: Active Insurance Policies Plan Name Member ID Group # Subscriber Relationship Effect elena Dates 1 - Medicare Part B [facility] [id number] Karina Wilson Self 05/31/2013 - Unknown 2 - [facility] [id number] Karina Wilson Self 10/31/19 21 - Unknown Clinical Notes Includes: Clinical Notes from this encounter * Progress note Date Encounter Last Documented by 08/23/2023 Follow Up Last documented on 08/25/2023; 1:29 PM, Pernell Fitzgerald MD; [facility] Active Problems & Conditions - Joint Pain [...] Care Team - HIRAM PIERRE MD - CYLINDER BATCHER - Luh Sesay PA-C
--- OUTSIDE RECORDS SUMMARY | 2025-02-21 12:13 | XMS_ITS ---
Care Plan - [facility], [facility] Created on: February 21, 2025 Karina Wilson : 1945 Sex: Female Author Organization [facility] Address [address] [place] [address] Phone Care Team Providers Care Pie Baker Name Role Phone Lázaro ISIDRO, Luh Unavailable [phone] Lia FIGUEREDO, Pernell Unavailable [phone] IGNACIO FIGUEREDO, HIRAM Unavailable [phone]
--- OUTSIDE RECORDS SUMMARY | 2025-02-21 12:14 | XMS_ITS | Clinical Summary ---
Author Organization [facility] , [facility] Address [address] [place] [address] Phone Care Team Providers Care Airport Operations Specialist Name Role Phone Lázaro ISIDRO, Luh Unavailable [phone] Lia FIGUEREDO, Pernell Unavailable [phone] IGNACIO FIGUEREDO, HIRAM Unavailable [phone] Reason for Visit and Chief Complaint The Chief Complaint is: left hip pain Problems Includes: Problems addressed during this encounter and other active Problems All Visits Onset Date Resolved Date Provider Condition S tatus Joint Pain in the Left Hip 03/27/2021 Pernell marshall MD Active Last Documented On 8:21AM ; [facility] Plan of Treatment - Patient screened for future fall risk: documentation of any fall with injury in past year - Last Documented On 05/09/2024 3:41PM ; [facility] Fall Risk Assessment: This patient has [...] - Last Documented On 05/09/2024 3:41PM ; [facility] Three-view x-ray of the left hip shows good alignment of implants no problems patient will be referred to Neurology for interpretation of her MRI brain results in overall neurologic exam screening exam we will see her back every 5 years for routine surveillance x-rays of the hip or sooner if needed - Last Documented On 05/09/2024 3:41PM ; [facility], [facility] Assessments Includes: Assessments from this encounter Findings 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, 2023 - Last Documented On 05/09/2024 3:41PM ; [facility], [facility] Medical Equipment - Implanted Devices Includes: Current Devices No Medical Equipment Recorded Medications Includes: Medications discussed during this encounter and other current Medications Current Medications (continue as prescribed) Ondansetron 4 MG Oral Tablet Disintegrating 12/12/2023 Provider: Diagnosis: Last Documented On 4 9:22AM By Albania Darby ; [facility], [facility] Sotalol HCl 80 MG Oral Tablet 12/07/2023 Provider: HIRAM PIERRE MD Diagnosis: Last Documented On 4 9:22AM By Albania Darby ; [facility], [facility] Levothyroxine Sodium 25 MCG Oral Tablet 12/02/2023 Coni mitchell: HIRAM PIERRE MD Diagnosis: Last Documented On 4 9:22AM By Albania Darby ; [facility], [facility] Valsartan-hydroCHLOROthiazid e 320-12.5 MG Oral Tablet 12/02/2023 Provider: HIRAM PIERRE MD Diagnosis: Last Documented On 4 9:22AM By Albania Darby ; [facility], [facility] Venlafaxine HCl ER 150 MG Or al Capsule Extended Release 24 Hour 12/02/2023 Provider: HIRAM PIERRE MD Diagnosis: Last Documented On 4 9:22AM By Albania Darby ; [facility], [facility] Amoxicillin-Pot Clavulanate 875-125 MG Oral Tablet Provider: Diagnosis: Last Documented On 4 9:22AM By Albania Darby ; [facility], [facility] Cetirizine HCl 10 MG Oral Capsule 03/27/2021 Provide r: Diagnosis: Last Documented On 1 9:12AM By Ami Dickerson ; [facility], [facility] Tetracycline HCl 500 MG Oral Capsule 01/22/2021 Prov ider: CARLA RUIZ II, MD Diagnosis: Last Documented On 1 8:45AM By Pam Valencia ; [facility] Omeprazole 20 MG Oral Capsul e Delayed Release 01/22/2021 Provider: CARLA RUIZ II, MD Diagnosis: Last Documented On 1 8:45AM By Pam Valencia ; [facility] metroNIDAZOLE 250 MG Oral Tablet 01/22/2021 Provider : CARLA RUIZ II, MD Diagnosis: Last Documented On 1 8:45AM By Pam Valencia ; [facility] FeroSul 325 (65 Fe) MG Oral Tablet 12/22/2020 Provid er: Diagnosis: Last Documented On 1 8:45AM By Pam Valencia ; [facility] Xarelto 20 MG Oral Tablet 12/08/2020 Provider: Diagnosis: Last Documented On 1 8:45AM By Pam Valencia ; [facility] Donepezil HCl 10 MG Oral Tablet 11/13/2020 Provider: TONY CARRERA MD (N) Diagnosis: Last Documented On 1 8:45AM By Pam Valencia ; [facility], [facility] Meloxicam 15 MG Oral Tablet 09/06/2020 Provider: Diagnosis: Last Documented On 1 9:12AM By Ami Dickerson ; [facility] Atorvastatin Calcium 10 MG Oral Tablet 06/06/2020 Pr ovider: Diagnosis: Last Documented On 1 9:12AM By Ami Dickerson ; [facility], [facility] Past Medications on file oxyCODONE HCl 5 MG Oral Tablet 06/28/2023 - 07/03/2023 Provider: Pernell Fitzgerald MD Diagnosis: 1-2 p o q 6-8h for post op pain Last Documented On 3 8:44AM By Pernell Fitzgerald ; [facility] Meloxicam 15 MG Oral Tablet 06/28/2023 - 07/28/2023 Pr ovider: Pernell Fitzgerald MD Diagnosis: once a day Last Documented On 3 8:44AM By Pernell Fitzgerald ; [facility] Cefadroxil 500 MG Oral Capsule 06/28/2023 - 07/01/2023 Provider: Pernell Fitzgerald MD Diagnosis: twice a day Last Documented On 3 8:44AM By Pernell Fitzgerald ; [facility] traMADol HCl 50 MG Oral Tablet 06/28/2023 - 07/13/2023 Provider: Pernell Fitzgerald MD Diagnosis: 1-2 p o q 6-8h for breakthrough post op pain Last Documented On 3 8:44AM By Pernell Fitzgerald ; [facility] Acetaminophen 500 MG Oral Tablet 06/28/2023 - 07/28/20 23 Provider: Pernell Fitzgerald MD Diagnosis: 2 three times a day , AFTER SURGERY Last Documented On 3 8:29AM By Pernell Fitzgerald ; [facility] Colace 100 MG Oral Capsule 06/28/2023 - 07/28/2023 Pro vider: Pernell Fitzgerald MD Diagnosis: 1-2 tabs daily as needed, AFTER SURGERY Last Documented On 3 8:44AM By Pernell Fitzgerald ; [facility], [facility] Ondansetron HCl 4 MG Oral Tablet 06/28/2023 - 07/12/20 23 Provider: Pernell Fitzgerald MD Diagnosis: 1-2 p o q 6-8h as needed for nausea Last Documented On 3 8:44AM By Pernell Fitzgerald ; [facility], [facility] Mupirocin 2% External Ointment 06/23/2023 - 06/28/2023 Provider: Pernell Fitzgerald MD Diagnosis: as directed Apply to each no stril with a q tip once a day for 5 days prior to surgery Last Documented On 3 3:24PM By Laurie Pablo ; [facility], [facility] Mupirocin 2% External Ointment 06/08/2023 - 06/13/2023 Provider: Pernell Fitzegrald MD Diagnosis: as directed Apply to each no stril with a q tip once a day for 5 days prior to surgery Last Documented On 3 1:53PM By Laurie Pablo ; [facility] Cefadroxil 500 MG Oral Capsule 09/17/2021 - 09/20/2021 Provider: Pernell Fitzgerald MD Diagnosis: twice a day Last Documented On 1 2:48PM By Haley Allen ; [facility] Colace 100 MG Oral Capsule 09/17/2021 - 10/17/2021 Pro vider: Pernell Fitzgerald MD Diagnosis: 1-2 tablets daily, as needed, AFTER SURGERY Last Documented On 1 2:48PM By Haley Allen ; [facility] Zofran 4 MG Oral Tablet 09/17/2021 - 10/17/2021 Provid er: Pernell Fitzgerald MD Diagnosis: take 1 tablet every 6-8hrs for nausea, AFTER ZAIDA ANA Last Documented On 1 2:49PM By Haley Allen ; [facility] oxyCODONE HCl 5 MG Oral Tablet 09/17/2021 - 10/17/2021 Provider: Pernell Fitzgerald MD Diagnosis: take 1-2 tablets every 4-6hrs for post op pain Last Documented On 1 3:02PM By Pernell Fitzgerald ; [facility] Ultram 50 MG Oral Tablet 09/17/2021 - 10/17/2021 Provi fausto: Pernell Fitzgerald MD Diagnosis: 1-2 tablets every 6-8 hours for breakthrough pos t op pain Last Documented On 1 3:02PM By Pernell Fitzgerald ; [facility] Aspirin Adult Low Strength 8 1 MG Oral Tablet Delayed Release 09/17/2021 - 11/01/2021 Provider: Pernell Fitzgerald MD Diagnosis: twice a day Last Documented On 1 2:47PM By aHley Allen ; [facility] Acetaminophen 500 MG Oral Tablet 09/17/2021 - 10/17/20 21 Provider: Pernell Fitzgerald MD Diagnosis: take 2 tablets 3 times daily, AFTER SURGERY Last Documented On 1 2:47PM By Haley Allen ; [facility] oxyCODONE HCl 5 MG Oral Tablet 09/14/2021 - 10/14/2021 Provider: Pernell Fitzgerald MD Diagnosis: take 1-2 tablets every 4-6hrs for post op pain Last Documented On 1 4:52PM By Pernell Fitzgerald ; [facility] Ultram 50 MG Oral [...] 03/27/2021 Last Documented On 4 10:44AM ; [facility], [facility] Smoking Status Unknown Procedures and Surgical History Includes: Procedures from this encounter Procedures Code Diagnosis Performing Provider Service Location Service Date X-RAY EXAM OF KNEE 1 OR 2 VIEWS (RIGHT) 13381 Unilateral primary osteoarthritis, right knee Pernell Fitzgerald MD [facility] 05/08/2024 Last Documented On 4 4:26PM ; [facility], [facility] use of tobacco assessment performed 1000F Last Documented On 4 10:44AM ; [facility], [facility] patient screened for future fall risk: documentation of any fall with injury in past year 1100F Last Documented On 4 10:44AM ; [facility], [facility] review of medications documented 1160F Last Documented On 4 10:44AM ; [facility], [facility] Surgical History Last Updated History of History of Gallbladder 2022 Last Documented On 4 10:44AM ; [facility], [facility] History of hysterectomy 12/21/2022 Last Documented On 4 10:44AM ; [facility] History of total hip replacement 023 Last Documented On 4 10:44AM ; [facility], [facility] Medical History Includes: Medical History addressed during this encounter Description Last Updated History of arthritis 12/21/2022 Last Documented On 4 10:44AM ; [facility], [facility] History of depression 12/21/2022 Last Documented On 4 10:44AM ; [facility], [facility] History of heart disease 12/21/2022 Last Documented On 4 10:44AM ; [facility], [facility] History of Heartburn / Acid Reflux 12/21 Last Documented On 4 10:44AM ; [facility], [facility] History of Hypertension 12/21/2022 Last Documented On 4 10:44AM ; [facility], [facility] History of Irregular Heartbeat 3 Last Documented On 4 10:44AM ; [facility], [facility] Recent immunization for flu 07/31/2021 1 12/28/2020 Last Documented On 4 10:44AM ; [facility] No recent immunization for pneumococcal pneumonia 03/27/2021 Last Documented On 4 10:44AM ; [facility] Family History Includes: Family History addressed during this encounter Description Last Updated Diabetes mellitus 12/21/2022 Last Documented On 4 10:44AM ; [facility] Family history of heart disease 12/21/19 23 Last Documented On 4 10:44AM ; [facility] Family history of osteoporosis 3 Last Documented On 4 10:44AM ; [facility] Family history of rheumatoid arthritis 0 12/21/2022 Last Documented On 4 10:44AM ; [facility] Review of Systems Includes: Review [...] Active Last Documented On 4 10:44AM ; [facility], [facility] Note: hyper Encounters Encounter Provider Location Date Check-In Time Check- Out Time Diagnosis Follow Up Pernell Fitzgerald MD [facility] [place] 4 10:03AM 11:14AM Insurance Includes: Active Insurance Policies Plan Name Member ID Group # Subscriber Relationship Effect elena Dates 1 - Medicare Part B [facility] [id number] Karina Wilson Self 05/31/2013 - Unknown 2 - [facility] [facility] [id number] Karina Wilson Self 10/31/19 21 - Unknown Clinical Notes Includes: Clinical Notes from this encounter * Progress note Date Encounter Last Documented by 05/08/2024 Follow Up Last documented on 05/09/2024; 3:41 PM, Pernell Fitzgerald MD; [facility], [facility] Active Problems & [...] Care Team - HIRAM PIERRE MD - [employer] - Luh Sesay PA-C
--- OUTSIDE RECORDS SUMMARY | 2025-02-21 12:14 | XMS_ITS ---
Author Organization [facility] , [facility] Address [address] [place] [address] Phone Care Team Providers Care Skein Washer Name Role Phone Lázaro ISIDRO, Luh Unavailable [phone] Lia FIGUEREDO, Pernell Unavailable [phone] IGNACIO FIGUEREDO, HIRAM Unavailable [phone] [...] Last Documented On 1 8:21AM ; [facility], [facility] Plan of Treatment Findings Encounter Date Patient screened for future fall risk: documentation of any fall with injury in past year Follow Up with Pernell Fitzgerald MD 05/08/2024 Last Documented On 4 3:41PM ; [facility], [facility] Instructions to patient Lose weight Last Documented On 3 9:58AM ; [facility], [facility] Lose weight Last Documented On 3 9:52AM ; [facility], [facility] Lose weight Last Documented On 2 9:10AM ; [facility], [facility] Assessments Includes: Assessments for all patient encounters No Assessments Recorded Instructions Includes: Instructions for all patient encounters Instructions to patient Lose weight Last Documented On 3 9:58AM ; [facility], [facility] Lose weight Last Documented On 3 9:52AM ; [facility], [facility] Lose weight Last Documented On 2 9:10AM ; [facility], [facility] Medical Equipment - Implanted Devices Includes: Current and historical Devices No Medical Equipment Recorded Medications Includes: Current and historical Medications Current Medications (continue as prescribed) Ondansetron 4 MG Oral Tablet Disintegrating 12/12/2023 Provider: Diagnosis: Last Documented On 4 9:22AM By Albania Darby ; [facility], [facility] Sotalol HCl 80 MG Oral Tablet 12/07/2023 Provider: HIRAM PIERRE MD Diagnosis: Last Documented On 4 9:22AM By Albania Darby ; [facility], [facility] Levothyroxine Sodium 25 MCG Oral Tablet 12/02/2023 Coni mitchell: HIRAM PIERRE MD Diagnosis: Last Documented On 4 9:22AM By Albania Darby ; [facility] Valsartan-hydroCHLOROthiazid e 320-12.5 MG Oral Tablet 12/02/2023 Provider: HIRAM PIERRE MD Diagnosis: Last Documented On 4 9:22AM By Albania Darby ; [facility], [facility] Venlafaxine HCl ER 150 MG Or al Capsule Extended Release 24 Hour 12/02/2023 Provider: HIRAM PIERRE MD Diagnosis: Last Documented On 4 9:22AM By Albania Darby ; [facility], [facility] Amoxicillin-Pot Clavulanate 875-125 MG Oral Tablet Provider: Diagnosis: Last Documented On 4 9:22AM By Albania Darby ; [facility], [facility] Cetirizine HCl 10 MG Oral Capsule 03/27/2021 Provide r: Diagnosis: Last Documented On 1 9:12AM By Ami Dickerson ; [facility], [facility] Tetracycline HCl 500 MG Oral Capsule 01/22/2021 Prov ider: CARLA RUIZ II, MD Diagnosis: Last Documented On 1 8:45AM By Pam Valencia ; [facility], [facility] Omeprazole 20 MG Oral Capsul e Delayed Release 01/22/2021 Provider: CARLA RUIZ II, MD Diagnosis: Last Documented On 1 8:45AM By Pam Valencia ; [facility] metroNIDAZOLE 250 MG Oral Tablet 01/22/2021 Provider : CARLA RUIZ II, MD Diagnosis: Last Documented On 1 8:45AM By Pam Valencia ; [facility] FeroSul 325 (65 Fe) MG Oral Tablet 12/22/2020 Provid er: Diagnosis: Last Documented On 1 8:45AM By Pam Valencia ; [facility], [facility] Xarelto 20 MG Oral Tablet 12/08/2020 Provider: Diagnosis: Last Documented On 1 8:45AM By Pam Valencia ; [facility], [facility] Donepezil HCl 10 MG Oral Tablet 11/13/2020 Provider: TONY CARRERA MD (N) Diagnosis: Last Documented On 1 8:45AM By Pam Valencia ; [facility], [facility] Meloxicam 15 MG Oral Tablet 09/06/2020 Provider: Diagnosis: Last Documented On 1 9:12AM By Ami Dickerson ; [facility], [facility] Atorvastatin Calcium 10 MG Oral Tablet 06/06/2020 Pr ovider: Diagnosis: Last Documented On 1 9:12AM By Ami Dickerson ; [facility], [facility] Past Medications on file oxyCODONE HCl 5 MG Oral Tablet 06/28/2023 - 07/03/2023 Provider: Pernell Fitzgerald MD Diagnosis: 1-2 p o q 6-8h for post op pain Last Documented On 3 8:44AM By Pernell Fitzgerald ; [facility], [facility] Meloxicam 15 MG Oral Tablet 06/28/2023 - 07/28/2023 Pr ovider: Pernell Fitzgerald MD Diagnosis: once a day Last Documented On 3 8:44AM By Pernell Fitzgerald ; [facility], [facility] Cefadroxil 500 MG Oral Capsule 06/28/2023 - 07/01/2023 Provider: Pernell Fitzgerald MD Diagnosis: twice a day Last Documented On 3 8:44AM By Pernell Fitzgerald ; [facility], [facility] traMADol HCl 50 MG Oral Tablet 06/28/2023 - 07/13/2023 Provider: Pernell Fitzgerald MD Diagnosis: 1-2 p o q 6-8h for breakthrough post op pain Last Documented On 3 8:44AM By Pernell Fitzgerald ; [facility], [facility] Acetaminophen 500 MG Oral Tablet 06/28/2023 - 07/28/20 23 Provider: Pernell Fitzgerald MD Diagnosis: 2 three times a day , AFTER SURGERY Last Documented On 3 8:29AM By Pernell Fitzgerald ; [facility], [facility] Colace 100 MG Oral Capsule 06/28/2023 - 07/28/2023 Pro vider: Pernell Fitzgerald MD Diagnosis: 1-2 tabs daily as needed, AFTER SURGERY Last Documented On 3 8:44AM By Pernell Fitzgerald ; [facility], [facility] Ondansetron HCl 4 MG Oral Tablet 06/28/2023 - 07/12/20 Provider: Pernell Fitzgerald MD Diagnosis: 1-2 p o q 6-8h as needed for nausea Last Documented On 3 8:44AM By Pernell Fitzgerald ; [facility], [facility] Mupirocin 2% External Ointment 06/23/2023 - 06/28/2023 Provider: Pernell Fitzgerald MD Diagnosis: as directed Apply to each no stril with a q tip once a day for 5 days prior to surgery Last Documented On 3 3:24PM By Laurie Pablo ; [facility], [facility] Mupirocin 2% External Ointment 06/08/2023 - 06/13/2023 Provider: Pernell Fitzgerald MD Diagnosis: as directed Apply to each no stril with a q tip once a day for 5 days prior to surgery Last Documented On 3 1:53PM By Laurie Pablo ; [facility], [facility] Cefadroxil 500 MG Oral Capsule 09/17/2021 - 09/20/2021 Provider: Pernell Fitzgerald MD Diagnosis: twice a day Last Documented On 1 2:48PM By Haley Allen ; [facility] Colace 100 MG Oral Capsule 09/17/2021 - 10/17/2021 Pro vider: Pernell Fitzgerald MD Diagnosis: 1-2 tablets daily, as needed, AFTER SURGERY Last Documented On 1 2:48PM By Haley Allen ; [facility] Zofran 4 MG Oral Tablet 09/17/2021 - 10/17/2021 Provid er: Pernell Fitzgerald MD Diagnosis: take 1 tablet every 6-8hrs for nausea, AFTER ZAIDA ANA Last Documented On 1 2:49PM By Haley Allen ; [facility] oxyCODONE HCl 5 MG Oral Tablet 09/17/2021 - 10/17/2021 Provider: Pernell Fitzgerald MD Diagnosis: take 1-2 tablets every 4-6hrs for post op pain Last Documented On 1 3:02PM By Pernell Fitzgerald ; [facility] Ultram 50 MG Oral Tablet 09/17/2021 - 10/17/2021 Provi fausto: Pernell Fitzgerald MD Diagnosis: 1-2 tablets every 6-8 hours for breakthrough pos t op pain Last Documented On 1 3:02PM By Pernell Fitzgerald ; [facility] Aspirin Adult Low Strength 8 1 MG Oral Tablet Delayed Release 09/17/2021 - 11/01/2021 Provider: Pernell Fitzgerald MD Diagnosis: twice a day Last Documented On 1 2:47PM By Haley Allen ; [facility] Acetaminophen 500 MG Oral Tablet 09/17/2021 - 10/17/20 21 Provider: Pernell Fitzgerald MD Diagnosis: take 2 tablets 3 times daily, AFTER SURGERY Last Documented On 1 2:47PM By Haley Allen ; [facility] oxyCODONE HCl 5 MG Oral Tablet 09/14/2021 - 10/14/2021 Provider: Pernell Fitzgerald MD Diagnosis: take 1-2 tablets every 4-6hrs for post op pain Last Documented On 1 4:52PM By Pernell Fitzgerald ; [facility] Ultram 50 MG Oral Tablet 07/31/2021 - 08/30/2021 Provi fausto: Pernell Fitzgerald MD Diagnosis: 1-2 po q6h prn pain Last Documented On 1 2:44PM By Pernell Fitzgerald ; [facility] Ultram 50 MG Oral Tablet 06/02/2021 - 07/02/2021 Provi fausto: Pernell Fitzgerald MD Diagnosis: 1-2 po q6h prn pain Last Documented On 1 12:40PM By Pernell Fitzgerald ; [facility] Valsartan-hydroCHLOROthiazid e 320-12.5 MG Oral Tablet 09/09/2020 - 12/27/2023 Provider: Diagnosis: Last Documented On 4 12:06PM By Lissette De ; [facility] Venlafaxine HCl ER 150 MG Or al Capsule Extended Release 24 Hour 09/06/2020 - 12/27/2023 Provider: Diagnosis: Last Documented On 4 12:06PM By Lissette [facility] Sotalol HCl 80 MG Oral Tablet 06/06/2020 - 12/27/2023 Provider: Diagnosis: Last Documented On 4 12:06PM By Lissette De ; [facility] Medications Administered Includes: Administered Medications in patient's chart No Administered Medications Recorded Vital Signs Includes: Vital Signs from 02/22/2024 through 02/21/2025 Vital Name 05/08/2024 10:52A Height (in) 68 Weight (lb) 154.3 Body Mass Index 23.5 Body Surface Area 1.8 Pain Level 8 Last Documented: On 05/08/2024 10:53A M ; [facility] Results Includes: Results from 02/22/2024 through 02/21/2025 No Results Recorded For Specified Dates History of Present Illness History of Present Illness not supported for this document type No History of Present Illness Recorded Social History Description Last Updated Tobacco non-user 12/27/2023 Last Documented On 4 8:48AM ; [facility] No recent change in diet 12/27/2023 Last Documented On 4 8:48AM ; [facility] Not a current smoker. 12/27/2023 Last Documented On 4 8:48AM ; [facility], [facility] Caffeine use 12/21/2022 Last Documented On 3 10:34AM ; [facility], [facility] Not exercising regularly 12/21/2022 Last Documented On 3 10:34AM ; [facility], [facility] Non-smoker 03/27/2021 Last Documented On 1 3:32PM ; [facility], [facility] No recent change in diet 03/27/2021 Last Documented On 1 3:32PM ; [facility], [facility] Not a current smoker. 03/27/2021 Last Documented On 1 3:32PM ; [facility], [facility] Not using alcohol 03/27/2021 Last Documented On 1 3:32PM ; [facility], [facility] Not using drugs 03/27/2021 Last Documented On 1 3:32PM ; [facility], [facility] Smoking Status Unknown Procedures and Surgical History Includes: Procedures from 02/22/2024 through 02/21/2025 Procedures Code Diagnosis Performing Provider Service Location Service Date X-RAY EXAM OF KNEE 1 OR 2 VIEWS (RIGHT) 76513 Unilateral primary osteoarthritis, right knee Pernell Fitzgerald MD [facility] 05/08/2024 Last Documented On 4 4:26PM ; [facility] Surgical History Last Updated History of History of Gallbladder 2022 Last Documented On 3 10:34AM ; [facility], [facility] History of hysterectomy 12/21/2022 Last Documented On 3 10:34AM ; [facility] History of total hip replacement 023 Last Documented On 3 10:34AM ; [facility], [facility] Medical History Includes: Medical History in patient's chart Description Last Updated History of arthritis 12/21/2022 Last Documented On 3 10:34AM ; [facility] History of depression 12/21/2022 Last Documented On 3 10:34AM ; [facility] History of heart disease 12/21/2022 Last Documented On 3 10:34AM ; [facility] History of Heartburn / Acid Reflux 12/21 Last Documented On 3 10:34AM ; [facility] History of Hypertension 12/21/2022 Last Documented On 3 10:34AM ; [facility] History of Irregular Heartbeat 3 Last Documented On 3 10:34AM ; [facility] Recent immunization for flu 07/31/2021 1 12/28/2020 Last Documented On 2 4:22PM ; [facility] No recent immunization for pneumococcal pneumonia 03/27/2021 Last Documented On 1 3:32PM ; [facility] Family History Includes: Family History in patient's chart Description Last Updated Diabetes mellitus 12/21/2022 Last Documented On 3 10:34AM ; [facility] Family history of heart disease 12/21/19 23 Last Documented On 3 10:34AM ; [facility] Family history of osteoporosis 3 Last Documented On 3 10:34AM ; [facility] Family history of rheumatoid arthritis 0 12/21/2022 Last Documented On 3 10:34AM ; [facility] Review of Systems Review of [...] Active Last Documented On 4 10:44AM ; [facility] Note: hyper Encounters Includes: Encounters from 02/22/2024 through 02/21/2025 Encounter Provider Location Date Check-In Time Check- Out Time Diagnosis Follow Up Pernell Fitzgerald MD [facility] 4 10:03AM 11:14AM Insurance Includes: Active Insurance Policies Plan Name Member ID Group # Subscriber Relationship Effect elena Dates 1 - Medicare Part B [facility] [id number] Karina Wilson Self 05/31/2013 - Unknown 2 - [employer] [facility] [employer] [id number] Karina Wilson Self 10/31/19 21 - Unknown Clinical Notes Includes: Signed Clinical Notes starting from 10/14/2022 * Progress note Date Encounter Last Documented by 05/08/2024 Follow Up Last documented on 05/09/2024; 3:41 PM, Pernell Fitzgerald MD; [facility] Active Problems & Conditions - Joint [...] Care Team - HIRAM PIERRE MD - COMPENSATION ADVISOR - Luh Sesay PA-C
[2025-02-21 12:35] VITALS: BP 129/63; PULSE 81; RESP 20; TEMP 36.4; O2SAT 99
[2025-02-21] MEDS: ERTAPENEM SODIUM 1 GM VIAL IM (12:35)
== END 2025-02-21 12:55 | disposition home or self-care (01) ==
LOC: INF 12:12
PROVIDERS: PCP Family Medicine; Visit Provider Student in an Organized Health Care Education/Training Program
DX: N39.0 Urinary tract infection, site not specified (principal)
CPT/HCPCS: 96372; J1335

== ENCOUNTER 2025-02-22 12:34 | Outpatient (CLI) | payer MEDICARE, SELFPAY ==
--- OUTSIDE RECORDS SUMMARY | 2025-02-22 12:36 | XMS_ITS | Clinical Summary ---
Author Organization [facility] , [facility] Address [address] [place] [address] Phone Care Team Providers Care Quiller Operator Name Role Phone Lázaro ISIDRO, Luh Unavailable [phone] Lia FIGUEREDO, Pernell Unavailable [phone] IGNACIO FIGUEREDO, HIRAM Unavailable [phone] Reason for Visit and Chief Complaint The Chief Complaint is: Right hip pov Problems Includes: Problems addressed during this encounter and other active Problems All Visits Onset Date Resolved Date Provider Condition S tatus Joint Pain in the Left Hip 03/27/2021 Pernell marshall MD Active Last Documented On 8:21AM ; [facility] Plan of Treatment Fall Risk Assessment: [...] - Last Documented On 07/27/2023 12:15PM ; [facility] Patient was seen by myself Robert Hayward PA-C. Patient will follow up [address] Fitzgerald patient would like to try outpatient physical therapy we will set her up to do this and then see her back with him in 3 weeks. - Last Documented On 07/27/2023 12:15PM ; [facility] Assessments Includes: Assessments from this encounter Findings Left total hip revision 07/01/2023 - Last Documented On 07/27/2023 12:15PM ; [facility], [facility] Medical Equipment - Implanted Devices Includes: Current Devices No Medical Equipment Recorded Medications Includes: Medications discussed during this encounter and other current Medications Current Medications (continue as prescribed) Ondansetron 4 MG Oral Tablet Disintegrating 12/12/2023 Provider: Diagnosis: Last Documented On 4 9:22AM By Albania Darby ; [facility], [facility] Sotalol HCl 80 MG Oral Tablet 12/07/2023 Provider: HIRAM PIERRE MD Diagnosis: Last Documented On 4 9:22AM By Albania Darby ; [facility], [facility] Levothyroxine Sodium 25 MCG Oral Tablet 12/02/2023 Coni mitchell: HIRAM PIERRE MD Diagnosis: Last Documented On 4 9:22AM By Albania Darby ; [facility], [facility] Valsartan-hydroCHLOROthiazid e 320-12.5 MG Oral Tablet 12/02/2023 Provider: HIRAM PIERRE MD Diagnosis: Last Documented On 4 9:22AM By Albania Darby ; [facility], [facility] Venlafaxine HCl ER 150 MG Or al Capsule Extended Release 24 Hour 12/02/2023 Provider: HIRAM PIERRE MD Diagnosis: Last Documented On 4 9:22AM By Albania Darby ; [facility], [facility] Amoxicillin-Pot Clavulanate 875-125 MG Oral Tablet Provider: Diagnosis: Last Documented On 4 9:22AM By Albania Darby ; [facility], [facility] Cetirizine HCl 10 MG Oral Capsule 03/27/2021 Provide r: Diagnosis: Last Documented On 1 9:12AM By Ami Dickerson ; [facility], [facility] Tetracycline HCl 500 MG Oral Capsule 01/22/2021 Prov ider: CARLA RUIZ II, MD Diagnosis: Last Documented On 1 8:45AM By Pam Valencia ; [facility], [facility] Omeprazole 20 MG Oral Capsul e Delayed Release 01/22/2021 Provider: CARLA RUIZ II, MD Diagnosis: Last Documented On 1 8:45AM By Pam Valencia ; [facility], [facility] metroNIDAZOLE 250 MG Oral Tablet 01/22/2021 Provider : CARLA RUIZ II, MD Diagnosis: Last Documented On 1 8:45AM By Pam Valencia ; [facility] FeroSul 325 (65 Fe) MG Oral Tablet 12/22/2020 Provid er: Diagnosis: Last Documented On 1 8:45AM By Pam Valencia ; [facility] Xarelto 20 MG Oral Tablet 12/08/2020 Provider: Diagnosis: Last Documented On 1 8:45AM By Pam Valencia ; [facility] Donepezil HCl 10 MG Oral Tablet 11/13/2020 Provider: TONY CARRERA MD (N) Diagnosis: Last Documented On 1 8:45AM By Pam Valencia ; [facility] Meloxicam 15 MG Oral Tablet 09/06/2020 Provider: Diagnosis: Last Documented On 1 9:12AM By Ami Dickerson ; [facility], [facility] Atorvastatin Calcium 10 MG Oral Tablet 06/06/2020 Pr ovider: Diagnosis: Last Documented On 1 9:12AM By Ami Dickerson ; [facility], [facility] Past Medications on file oxyCODONE HCl 5 MG Oral Tablet 06/28/2023 - 07/03/2023 Provider: Pernell Fitzgerald MD Diagnosis: 1-2 p o q 6-8h for post op pain Last Documented On 3 8:44AM By Pernell Fitzgerald ; [facility], [facility] Meloxicam 15 MG Oral Tablet 06/28/2023 - 07/28/2023 Pr ovider: Pernell Fitzgerald MD Diagnosis: once a day Last Documented On 3 8:44AM By Pernell Fitzgerald ; [facility], [facility] Cefadroxil 500 MG Oral Capsule 06/28/2023 - 07/01/2023 Provider: Pernell Fitzgerald MD Diagnosis: twice a day Last Documented On 3 8:44AM By Pernell Fitzgerald ; [facility], [facility] traMADol HCl 50 MG Oral Tablet 06/28/2023 - 07/13/2023 Provider: Pernell Fitzgerald MD Diagnosis: 1-2 p o q 6-8h for breakthrough post op pain Last Documented On 3 8:44AM By Pernell Fitzgerald ; [facility], [facility] Acetaminophen 500 MG Oral Tablet 06/28/2023 - 07/28/20 Provider: Pernell Fitzgerald MD Diagnosis: 2 three times a day , AFTER SURGERY Last Documented On 3 8:29AM By Pernell Fitzgerald ; [facility], [facility] Colace 100 MG Oral Capsule 06/28/2023 - 07/28/2023 Pro vider: Pernell Fitzgerald MD Diagnosis: 1-2 tabs daily as needed, AFTER SURGERY Last Documented On 3 8:44AM By Pernell Fitzgerald ; [facility], [facility] Ondansetron HCl 4 MG Oral Tablet 06/28/2023 - 07/12/20 Provider: Pernell Fitzgerald MD Diagnosis: 1-2 p o q 6-8h as needed for nausea Last Documented On 3 8:44AM By Pernell Fitzgerald ; [facility], [facility] Mupirocin 2% External Ointment 06/23/2023 - 06/28/2023 Provider: Pernell Fitzgerald MD Diagnosis: as directed Apply to each no stril with a q tip once a day for 5 days prior to surgery Last Documented On 3 3:24PM By Laurie Pablo ; [facility], [facility] Mupirocin 2% External Ointment 06/08/2023 - 06/13/2023 Provider: Pernell Fitzgerald MD Diagnosis: as directed Apply to each no stril with a q tip once a day for 5 days prior to surgery Last Documented On 3 1:53PM By Laurie Pablo ; [facility], [facility] Cefadroxil 500 MG Oral Capsule 09/17/2021 - 09/20/2021 Provider: Pernell Fitzgerald MD Diagnosis: twice a day Last Documented On 1 2:48PM By Haley Allen ; [facility], [facility] Colace 100 MG Oral Capsule 09/17/2021 - 10/17/2021 Pro vider: Pernell Fitzgerald MD Diagnosis: 1-2 tablets daily, as needed, AFTER SURGERY Last Documented On 1 2:48PM By Haley Allen ; [facility], [facility] Zofran 4 MG Oral Tablet 09/17/2021 - 10/17/2021 Provid er: Pernell Fitzgerald MD Diagnosis: take 1 tablet every 6-8hrs for nausea, AFTER ZAIDA ANA Last Documented On 1 2:49PM By Haley Allen ; [facility] oxyCODONE HCl 5 MG Oral Tablet 09/17/2021 - 10/17/2021 Provider: Pernell Fitzgerald MD Diagnosis: take 1-2 tablets every 4-6hrs for post op pain Last Documented On 1 3:02PM By Pernell Fitzgerald ; [facility] Ultram 50 MG Oral Tablet 09/17/2021 - 10/17/2021 Provi fausto: Pernell Fitzgerald MD Diagnosis: 1-2 tablets every 6-8 hours for breakthrough pos t op pain Last Documented On 1 3:02PM By Pernell Fitzgerald ; [facility], [facility] Aspirin Adult Low Strength 8 1 MG Oral Tablet Delayed Release 09/17/2021 - 11/01/2021 Provider: Pernell Fitzgerald MD Diagnosis: twice a day Last Documented On 1 2:47PM By Haley Allen ; [facility] Acetaminophen 500 MG Oral Tablet 09/17/2021 - 10/17/20 21 Provider: Pernell Fitzgerald MD Diagnosis: take 2 tablets 3 times daily, AFTER SURGERY Last Documented On 1 2:47PM By Haley Allen ; [facility] oxyCODONE HCl 5 MG Oral Tablet 09/14/2021 - 10/14/2021 Provider: Pernell Fitzgerald MD Diagnosis: take 1-2 tablets every 4-6hrs for post op pain Last Documented On 1 4:52PM By Pernell Fitzgerald ; [facility] Ultram 50 MG Oral Tablet 07/31/2021 - 08/30/2021 Provi fausto: Pernell Fitzgerald MD Diagnosis: 1-2 po q6h prn pain Last Documented On 1 2:44PM By Pernell Fitzgerald ; [facility] Ultram 50 MG Oral Tablet 06/02/2021 - 07/02/2021 Provi fausto: Pernell Fitzgerald MD Diagnosis: 1-2 po q6h prn pain Last Documented On 1 12:40PM By Pernell Fitzgerald ; [facility], [facility] Medications Administered Includes: Administered Medications [...] 12/27/2023 Last Documented On 3 2:26PM ; [facility], [facility] No recent change in diet 12/27/2023 Last Documented On 3 2:26PM ; [facility], [facility] Not a current smoker. 12/27/2023 Last Documented On 3 2:26PM ; [facility] Caffeine use 12/21/2022 Last Documented On 3 2:26PM ; [facility], [facility] Not exercising regularly 12/21/2022 Last Documented On 3 2:26PM ; [facility] Non-smoker 03/27/2021 Last Documented On 3 2:26PM ; [facility], [facility] No recent change in diet 03/27/2021 Last Documented On 3 2:26PM ; [facility], [facility] Not a current smoker. 03/27/2021 Last Documented On 3 2:26PM ; [facility] Not using alcohol 03/27/2021 Last Documented On 3 2:26PM ; [facility], [facility] Not using drugs 03/27/2021 Last Documented On 3 2:26PM ; [facility], [facility] Smoking Status Unknown Procedures and Surgical History Includes: Procedures from this encounter Procedures Code Diagnosis Performing Provider Service L ocation Service Date use of tobacco assessment performed 1000F Last Documented On 3 2:26PM ; [facility] MICHAEL, [facility] patient screened for future fall risk: documentation of any fall with injury in past year 1100F Last Documented On 3 2:26PM ; [facility] review of medications documented 1160F Last Documented On 3 2:26PM ; [facility], [facility] Surgical History Last Updated History of History of Gallbladder 2022 Last Documented On 3 2:26PM ; [facility], [facility] History of hysterectomy 12/21/2022 Last Documented On 3 2:26PM ; [facility]INA ROMERO, [facility] History of total hip replacement 023 Last Documented On 3 2:26PM ; [facility] Medical History Includes: Medical History addressed during this encounter Description Last Updated History of arthritis 12/21/2022 Last Documented On 3 2:26PM ; [facility], [facility] History of depression 12/21/2022 Last Documented On 3 2:26PM ; [facility] History of heart disease 12/21/2022 Last Documented On 3 2:26PM ; [facility], [facility] History of Heartburn / Acid Reflux 12/21 Last Documented On 3 2:26PM ; [facility] History of Hypertension 12/21/2022 Last Documented On 3 2:26PM ; [facility], [facility] History of Irregular Heartbeat 3 Last Documented On 3 2:26PM ; [facility] Recent immunization for flu 07/31/2021 1 12/28/2020 Last Documented On 3 2:26PM ; [facility] No recent immunization for pneumococcal pneumonia 03/27/2021 Last Documented On 3 2:26PM ; [facility] Family History Includes: Family History addressed during this encounter Description Last Updated Diabetes mellitus 12/21/2022 Last Documented On 3 2:26PM ; [facility] Family history of heart disease 12/21/19 23 Last Documented On 3 2:26PM ; [facility] Family history of osteoporosis 3 Last Documented On 3 2:26PM ; [facility] Family history of rheumatoid arthritis 0 12/21/2022 Last Documented On 3 2:26PM ; [facility] Review of Systems Includes: Review of [...] Active Last Documented On 4 10:44AM ; [facility] Note: hyper Encounters Encounter Provider Location Date Check-In Time Check- Out Time Diagnosis Follow Up Robert Hayward PA-C [facility] 3 1:50PM 3:25PM Insurance Includes: Active Insurance Policies Plan Name Member ID Group # Subscriber Relationship Effect elena Dates 1 - Medicare Part B [facility] [id number] Karina Wilson Self 05/31/2013 - Unknown 2 - [facility] [employer] [facility] [id number] Karina Wilson Self 10/31/19 21 - Unknown Clinical Notes Includes: Clinical Notes from this encounter * Progress note Date Encounter Last Documented by 07/26/2023 Follow Up Last documented on 07/27/2023; 12:15 PM, Robert Obando; [facility], [facility] Active Problems & Conditions - [...] Care Team - HIRAM PIERRE MD - COMPUTER AIDED DRAFTER - Luh Sesay PA-C
--- OUTSIDE RECORDS SUMMARY | 2025-02-22 12:36 | XMS_ITS | Clinical Summary ---
Author Organization [facility] Address [address] [place] [address] Phone Care Team Providers Care Car Distributor Name Role Phone áLzaro ISIDRO, Luh Unavailable [phone] Lia FIGUEREDO, Pernell Unavailable [phone] IGNACIO FIGUEREDO, HIRAM Unavailable [phone] Reason for Visit and Chief Complaint The Chief Complaint is: left hip pain Problems Includes: Problems addressed during this encounter and other active Problems All Visits Onset Date Resolved Date Provider Condition S tatus Joint Pain in the Left Hip 03/27/2021 Pernell marshall MD Active Last Documented On 8:21AM ; [facility] Plan of Treatment Fall Risk Assessment: [...] - Last Documented On 08/09/2023 2:05PM ; [facility] Patient was seen by myself Robert Hayward PA-C. Patient will follow up [address] Ackerman she was scheduled for next week I think we can push it off for a week did offer physical therapy but she does not want to do that. Recommend continue with just conservative care rest and Tylenol. - Last Documented On 08/09/2023 2:05PM ; [facility] Assessments Includes: Assessments from this encounter Findings Left total hip revision - Last Documented On 08/09/2023 2:05PM ; [facility] left hip strain and gastroc strain - Last Documented On 08/09/2023 2:05PM ; [facility] Medical Equipment - Implanted Devices Includes: Current Devices No Medical Equipment Recorded Medications Includes: Medications discussed during this encounter and other current Medications Current Medications (continue as prescribed) Ondansetron 4 MG Oral Tablet Disintegrating 12/12/2023 Provider: Diagnosis: Last Documented On 4 9:22AM By Albania Darby ; [facility] Sotalol HCl 80 MG Oral Tablet 12/07/2023 Provider: HIRAM PIERRE MD Diagnosis: Last Documented On 4 9:22AM By Albania Darby ; [facility] Levothyroxine Sodium 25 MCG Oral Tablet 12/02/2023 Coni mitchell: HIRAM PIERRE MD Diagnosis: Last Documented On 4 9:22AM By Albania Darby ; [facility] Valsartan-hydroCHLOROthiazid e 320-12.5 MG Oral Tablet 12/02/2023 Provider: HIRAM PIERRE MD Diagnosis: Last Documented On 4 9:22AM By Albania Darby ; [facility] Venlafaxine HCl ER 150 MG Or al Capsule Extended Release 24 Hour 12/02/2023 Provider: HIRAM PIERRE MD Diagnosis: Last Documented On 4 9:22AM By Albania Darby ; [facility] Amoxicillin-Pot Clavulanate 875-125 MG Oral Tablet Provider: Diagnosis: Last Documented On 4 9:22AM By Albania Darby ; [facility] Cetirizine HCl 10 MG Oral Capsule 03/27/2021 Provide r: Diagnosis: Last Documented On 1 9:12AM By Ami Dickerson ; [facility] Tetracycline HCl 500 MG Oral Capsule 01/22/2021 Prov ider: CARLA RUIZ II, MD Diagnosis: Last Documented On 1 8:45AM By Pam Valencia ; [facility] Omeprazole 20 MG Oral Capsul e Delayed Release 01/22/2021 Provider: CARLA RUIZ II, MD Diagnosis: Last Documented On 1 8:45AM By Pam Valencia ; [facility] metroNIDAZOLE 250 MG Oral Tablet 01/22/2021 Provider : CARLA RUIZ II, MD Diagnosis: Last Documented On 1 8:45AM By Pam Valencia ; [facility] FeroSul 325 (65 Fe) MG Oral Tablet 12/22/2020 Provid er: Diagnosis: Last Documented On 1 8:45AM By Pam Valencia ; [facility] Xarelto 20 MG Oral Tablet 12/08/2020 Provider: Diagnosis: Last Documented On 8:45AM By Pam Valencia ; [facility] Donepezil HCl 10 MG Oral Tablet 11/13/2020 Provider: TONY CARRERA MD (N) Diagnosis: Last Documented On 8:45AM By Pam Valencia ; [facility] Meloxicam 15 MG Oral Tablet 09/06/2020 Provider: Diagnosis: Last Documented On 1 9:12AM By Ami Dickerson ; [facility] Atorvastatin Calcium 10 MG Oral Tablet 06/06/2020 Pr ovider: Diagnosis: Last Documented On 1 9:12AM By Ami Dickerson ; [facility] Past Medications on file oxyCODONE HCl 5 MG Oral Tablet 06/28/2023 - 07/03/2023 Provider: Pernell Fitzgerald MD Diagnosis: 1-2 p o q 6-8h for post op pain Last Documented On 3 8:44AM By Pernell Fitzgerald ; [facility] Meloxicam 15 MG Oral Tablet 06/28/2023 - 07/28/2023 Pr ovider: Pernell Fitzgerald MD Diagnosis: once a day Last Documented On 3 8:44AM By Pernell Fitzgerald ; [facility] Cefadroxil 500 MG Oral Capsule 06/28/2023 - 07/01/2023 Provider: Pernell Fitzgerald MD Diagnosis: twice a day Last Documented On 3 8:44AM By Pernell Fitzgerald ; [facility] traMADol HCl 50 MG Oral Tablet 06/28/2023 - 07/13/2023 Provider: Pernell Fitzgerald MD Diagnosis: 1-2 p o q 6-8h for breakthrough post op pain Last Documented On 3 8:44AM By Pernell Fitzgerald ; [facility] Acetaminophen 500 MG Oral Tablet 06/28/2023 - 07/28/20 Provider: Pernell Fitzgerald MD Diagnosis: 2 three times a day , AFTER SURGERY Last Documented On 3 8:29AM By Pernell Fitzgerald ; [facility] Colace 100 MG Oral Capsule 06/28/2023 - 07/28/2023 Pro vider: Pernell Fitzgerald MD Diagnosis: 1-2 tabs daily as needed, AFTER SURGERY Last Documented On 3 8:44AM By Pernell Fitzgerald ; [facility] Ondansetron HCl 4 MG Oral Tablet 06/28/2023 - 07/12/20 Provider: Pernell Fitzgerald MD Diagnosis: 1-2 p o q 6-8h as needed for nausea Last Documented On 3 8:44AM By Pernell Fitzgerald ; [facility] Mupirocin 2% External Ointment 06/23/2023 - 06/28/2023 Provider: Pernell Fitzgerald MD Diagnosis: as directed Apply to each no stril with a q tip once a day for 5 days prior to surgery Last Documented On 3 3:24PM By Laruie Pablo ; [facility] Mupirocin 2% External Ointment 06/08/2023 - 06/13/2023 Provider: Pernell Fitzgerald MD Diagnosis: as directed Apply to each no stril with a q tip once a day for 5 days prior to surgery Last Documented On 3 1:53PM By Laurie Pablo ; [facility] Cefadroxil 500 MG Oral Capsule 09/17/2021 - 09/20/2021 Provider: Pernell Fitzgerald MD Diagnosis: twice a day Last Documented On 1 2:48PM By Haley Allen ; [facility] Colace 100 MG Oral Capsule 09/17/2021 - 10/17/2021 Pro vider: Pernell Fitzgerald MD Diagnosis: 1-2 tablets daily, as needed, AFTER SURGERY Last Documented On 1 2:48PM By Haley Allen ; [facility] Zofran 4 MG Oral Tablet 09/17/2021 - 10/17/2021 Provid er: Pernell Fitzgerald MD Diagnosis: take 1 tablet every 6-8hrs for nausea, AFTER ZAIDA ANA Last Documented On 1 2:49PM By Haley Allen ; [facility] oxyCODONE HCl 5 MG Oral Tablet 09/17/2021 - 10/17/2021 Provider: Pernell Fitzgerald MD Diagnosis: take 1-2 tablets every 4-6hrs for post op pain Last Documented On 1 3:02PM By Pernell Fitzgerald ; [facility] Ultram 50 MG Oral Tablet 09/17/2021 - 10/17/2021 Provi fausto: Pernell Fitzgerald MD Diagnosis: 1-2 tablets every 6-8 hours for breakthrough pos t op pain Last Documented On 1 3:02PM By Pernell Fitzgerald ; [facility] Aspirin Adult Low Strength 8 1 MG Oral Tablet Delayed Release 09/17/2021 - 11/01/2021 Provider: Pernell Fitzgerald MD Diagnosis: twice a day Last Documented On 1 2:47PM By Haley Allen ; [facility] Acetaminophen 500 MG Oral Tablet 09/17/2021 - 10/17/20 21 Provider: Pernell Fitzgerald MD Diagnosis: take 2 tablets 3 times daily, AFTER SURGERY Last Documented On 1 2:47PM By Haley Allen ; [facility] oxyCODONE HCl 5 MG Oral Tablet 09/14/2021 - 10/14/2021 Provider: Pernell Fitzgerald MD Diagnosis: take 1-2 tablets every 4-6hrs for post op pain Last Documented On 1 4:52PM By Pernell Fitzgerald ; [facility] Ultram 50 MG Oral Tablet 07/31/2021 - 08/30/2021 Provi fausto: Pernell Fitzgerald MD Diagnosis: 1-2 po q6h prn pain Last Documented On 1 2:44PM By Pernell Fitzgerald ; [facility] Ultram 50 MG Oral Tablet [...] Documented On 3 1:35PM ; [facility] No recent change in diet 12/27/2023 Last Documented On 3 1:35PM ; [facility] Not a current smoker. 12/27/2023 Last Documented On 3 1:35PM ; [facility] Caffeine use 12/21/2022 Last Documented On 3 1:35PM ; [facility] Not exercising regularly 12/21/2022 Last Documented On 3 1:35PM ; [facility] Non-smoker 03/27/2021 Last Documented On 3 1:35PM ; [facility] No recent change in diet 03/27/2021 Last Documented On 3 1:35PM ; [facility] Not a current smoker. 03/27/2021 Last Documented On 3 1:35PM ; [facility] Not using alcohol 03/27/2021 Last Documented On 3 1:35PM ; [facility] Not using drugs 03/27/2021 Last Documented On 3 1:35PM ; [facility] Smoking Status Unknown Procedures and Surgical History Includes: Procedures from this encounter Procedures Code Diagnosis Performing Provider Service L ocation Service Date use of tobacco assessment performed 1000F Last Documented On 3 1:36PM ; [facility] patient screened for future fall risk: documentation of any fall with injury in past year 1100F Last Documented On 3 1:36PM ; [facility] review of medications documented 1160F Last Documented On 3 1:36PM ; [facility] Surgical History Last Updated History of History of Gallbladder 2022 Last Documented On 3 1:35PM ; [facility] History of hysterectomy 12/21/2022 Last Documented On 3 1:35PM ; [facility] History of total hip replacement 023 Last Documented On 3 1:35PM ; [facility] Medical History Includes: Medical History addressed during this encounter Description Last Updated History of arthritis 12/21/2022 Last Documented On 3 1:35PM ; [facility] History of depression 12/21/2022 Last Documented On 3 1:35PM ; [facility] History of heart disease 12/21/2022 Last Documented On 3 1:35PM ; [facility] History of Heartburn / Acid Reflux 12/21 Last Documented On 3 1:35PM ; [facility] History of Hypertension 12/21/2022 Last Documented On 3 1:35PM ; [facility] History of Irregular Heartbeat 3 Last Documented On 3 1:35PM ; [facility] Recent immunization for flu 07/31/2021 1 12/28/2020 Last Documented On 3 1:35PM ; [facility] No recent immunization for pneumococcal pneumonia 03/27/2021 Last Documented On 3 1:35PM ; [facility] Family History Includes: Family History addressed during this encounter Description Last Updated Diabetes mellitus 12/21/2022 Last Documented On 3 1:35PM ; [facility] Family history of heart disease 12/21/19 23 Last Documented On 3 1:35PM ; [facility] Family history of osteoporosis 3 Last Documented On 3 1:35PM ; [facility] Family history of rheumatoid arthritis 0 12/21/2022 Last Documented On 3 1:35PM ; [facility] Review of Systems Includes: Review of [...] Active Last Documented On 4 10:44AM ; [facility] Note: hyper Encounters Encounter Provider Location Date Check-In Time Check- Out Time Diagnosis Follow Up Robert Hayward PA-C [facility] 3 1:31PM 2:03PM Insurance Includes: Active Insurance Policies Plan Name Member ID Group # Subscriber Relationship Effect elena Dates 1 - Medicare Part B [facility] [id number] Karina Wilson Self 05/31/2013 - Unknown 2 - [facility] [employer] [id number] Karina Wilson Self 10/31/19 21 - Unknown Clinical Notes Includes: Clinical Notes from this encounter * Progress note Date Encounter Last Documented by 08/09/2023 Follow Up Last documented on 08/09/2023; 2:05 PM, Robert Hayward PA-C; [facility] Active Problems & Conditions - [...] Care Team - HIRAM PIERRE MD - [facility] - Luh Sesay PA-C
--- OUTSIDE RECORDS SUMMARY | 2025-02-22 12:36 | XMS_ITS | Clinical Summary ---
Author Organization [facility] , [facility] Address [address] [place] [address] Phone Care Team Providers Care Publication Designer Name Role Phone Lázaro ISIDRO, Luh Unavailable [phone] Lia FIGUEREDO, Pernell Unavailable [phone] IGNACIO FIGUEREDO, HIRAM Unavailable [phone] Reason for Visit and [...] - Last Documented On 12/28/2023 8:48AM ; [facility] Patient was seen [...] - Last Documented On 12/28/2023 8:48AM ; [facility], [facility] Assessments Includes: Assessments from this encounter Findings 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, 2023 - Last Documented On 12/28/2023 8:48AM ; [facility], [facility] Medical Equipment - Implanted Devices Includes: Current Devices No Medical Equipment Recorded Medications Includes: Medications discussed during this encounter and other current Medications Discontinued / Stopped on this date on 09/09/2020 Valsartan-hydroCHLOROthiazide 320-12.5 MG Oral Tablet Provider: Diagnosis: Last Documented On 4 12:06PM By Lissette De ; [facility], [facility] Venlafaxine HCl ER 150 MG Or al Capsule Extended Release 24 Hour Provider: Diagnosis: Last Documented On 4 12:06PM By Lissette De ; [facility], [facility] Sotalol HCl 80 MG Oral Tablet Provider: Diagnosis: Last Documented On 4 12:06PM By Lissette De ; [facility], [facility] Current Medications (continue as prescribed) Ondansetron 4 MG Oral Tablet Disintegrating 12/12/2023 Provider: Diagnosis: Last Documented On 4 9:22AM By Albania Darby ; [facility], [facility] Sotalol HCl 80 MG Oral Tablet 12/07/2023 Provider: HIRAM PIERRE MD Diagnosis: Last Documented On 4 9:22AM By Albania Darby ; [facility], [facility] Levothyroxine Sodium 25 MCG Oral Tablet 12/02/2023 Coni mitchell: HIRAM PIERRE MD Diagnosis: Last Documented On 4 9:22AM By Albania Darby ; [facility], [facility] Valsartan-hydroCHLOROthiazid e 320-12.5 MG Oral Tablet 12/02/2023 Provider: HIRAM PIERRE MD Diagnosis: Last Documented On 4 9:22AM By Albania Darby ; [facility], [facility] Venlafaxine HCl ER 150 MG Or al Capsule Extended Release 24 Hour 12/02/2023 Provider: HIRAM PIERRE MD Diagnosis: Last Documented On 4 9:22AM By Albania Darby ; [facility], [facility] Amoxicillin-Pot Clavulanate 875-125 MG Oral Tablet Provider: Diagnosis: Last Documented On 4 9:22AM By Albania Darby ; [facility] Cetirizine HCl 10 MG Oral Capsule 03/27/2021 Provide r: Diagnosis: Last Documented On 1 9:12AM By Ami Dickerson ; [facility] Tetracycline HCl 500 MG Oral Capsule 01/22/2021 Prov ider: CARLA RUIZ II, MD Diagnosis: Last Documented On 1 8:45AM By Pam Valencia ; [facility] Omeprazole 20 MG Oral Capsul e Delayed Release 01/22/2021 Provider: CARLA RUIZ II, MD Diagnosis: Last Documented On 8:45AM By Pam Valencia ; [facility] metroNIDAZOLE 250 MG Oral Tablet 01/22/2021 Provider : CARLA RUIZ II, MD Diagnosis: Last Documented On 1 8:45AM By Pam Valencia ; [facility], [facility] FeroSul 325 (65 Fe) MG Oral Tablet 12/22/2020 Provid er: Diagnosis: Last Documented On 1 8:45AM By Pam Valencia ; [facility], [facility] Xarelto 20 MG Oral Tablet 12/08/2020 Provider: Diagnosis: Last Documented On 1 8:45AM By Pam Valencia ; [facility], [facility] Donepezil HCl 10 MG Oral Tablet 11/13/2020 Provider: TONY CARRERA MD (N) Diagnosis: Last Documented On 1 8:45AM By Pam Valencia ; [facility] Meloxicam 15 MG Oral Tablet 09/06/2020 Provider: Diagnosis: Last Documented On 1 9:12AM By Ami Dickerson ; [facility], [facility] Atorvastatin Calcium 10 MG Oral Tablet 06/06/2020 Pr ovider: Diagnosis: Last Documented On 1 9:12AM By Ami Dickerson ; [facility], [facility] Past Medications on file oxyCODONE HCl 5 MG Oral Tablet 06/28/2023 - 07/03/2023 Provider: Pernell Fitzgerald MD Diagnosis: 1-2 p o q 6-8h for post op pain Last Documented On 3 8:44AM By Pernell Fitzgerald ; [facility], [facility] Meloxicam 15 MG Oral Tablet 06/28/2023 - 07/28/2023 Pr ovider: Pernell Fitzgerald MD Diagnosis: once a day Last Documented On 3 8:44AM By Pernell Fitzgerald ; [facility], [facility] Cefadroxil 500 MG Oral Capsule 06/28/2023 - 07/01/2023 Provider: Pernell Fitzgerald MD Diagnosis: twice a day Last Documented On 3 8:44AM By Pernell Fitzgerald ; [facility] traMADol HCl 50 MG Oral Tablet 06/28/2023 - 07/13/2023 Provider: Pernell Fitzgerald MD Diagnosis: 1-2 p o q 6-8h for breakthrough post op pain Last Documented On 3 8:44AM By Pernell Fitzgerald ; [facility] Acetaminophen 500 MG Oral Tablet 06/28/2023 - 07/28/20 Provider: Pernell Fitzgerald MD Diagnosis: 2 three times a day , AFTER SURGERY Last Documented On 3 8:29AM By Gimenezshannan Fitzgerald ; [facility], [facility] Colace 100 MG Oral Capsule 06/28/2023 - 07/28/2023 Pro vider: Pernell Fitzgerald MD Diagnosis: 1-2 tabs daily as needed, AFTER SURGERY Last Documented On 3 8:44AM By Pernell Fitzgerald [facility], [facility] Ondansetron HCl 4 MG Oral Tablet 06/28/2023 - 07/12/20 Provider: Pernell Fitzgerald MD Diagnosis: 1-2 p o q 6-8h as needed for nausea Last Documented On 3 8:44AM By Pernell Fitzgerald ; [facility], [facility] Mupirocin 2% External Ointment 06/23/2023 - 06/28/2023 Provider: Pernell Fitzgerald MD Diagnosis: as directed Apply to each no stril with a q tip once a day for 5 days prior to surgery Last Documented On 3 3:24PM By Laurie Pablo ; [facility], [facility] Mupirocin 2% External Ointment 06/08/2023 - 06/13/2023 Provider: Pernell Fitzgerald MD Diagnosis: as directed Apply to each no stril with a q tip once a day for 5 days prior to surgery Last Documented On 3 1:53PM By Laurie Pablo ; [facility], [facility] Cefadroxil 500 MG Oral Capsule 09/17/2021 - 09/20/2021 Provider: Pernell Fitzgerald MD Diagnosis: twice a day Last Documented On 1 2:48PM By Haley Allen ; [facility], [facility] Colace 100 MG Oral Capsule 09/17/2021 - 10/17/2021 Pro vider: Pernell Fitzgerald MD Diagnosis: 1-2 tablets daily, as needed, AFTER SURGERY Last Documented On 1 2:48PM By Haley Allen ; [facility], [facility] Zofran 4 MG Oral Tablet 09/17/2021 - 10/17/2021 Provid er: Pernell Fitzgerald MD Diagnosis: take 1 tablet every 6-8hrs for nausea, AFTER ZAIDA ANA Last Documented On 1 2:49PM By Haley Allen ; [facility], [facility] oxyCODONE HCl 5 MG Oral Tablet 09/17/2021 - 10/17/2021 Provider: Pernell Fitzgerald MD Diagnosis: take 1-2 tablets every 4-6hrs for post op pain Last Documented On 1 3:02PM By Pernell Fitzgerald ; [facility], [facility] Ultram 50 MG Oral Tablet 09/17/2021 - 10/17/2021 Provi fausto: Pernell Fitzgerald MD Diagnosis: 1-2 tablets every 6-8 hours for breakthrough pos t op pain Last Documented On 1 3:02PM By Pernell Fitzgerald ; [facility], [facility] Aspirin Adult Low Strength 8 1 MG Oral Tablet Delayed Release 09/17/2021 - 11/01/2021 Provider: Pernell Fitzgerald MD Diagnosis: twice a day Last Documented On 1 2:47PM By Haley Allen ; [facility], [facility] Acetaminophen 500 MG Oral Tablet 09/17/2021 - 10/17/20 21 Provider: Pernell Fitzgerald MD Diagnosis: take 2 tablets 3 times daily, AFTER SURGERY Last Documented On 1 2:47PM By Haley Allen ; [facility], [facility] oxyCODONE HCl 5 MG Oral Tablet 09/14/2021 - 10/14/2021 Provider: Penrell Fitzgerald MD Diagnosis: take 1-2 tablets every 4-6hrs for post op pain Last Documented On 1 4:52PM By Pernell Fitzgerald ; [facility], [facility] Ultram 50 MG Oral Tablet 07/31/2021 - 08/30/2021 Provi fausto: Pernell Fitzgerald MD Diagnosis: 1-2 po q6h prn pain Last Documented On 1 2:44PM By Pernell Fitzgerald ; [facility], [facility] Ultram 50 MG Oral Tablet 06/02/2021 - 07/02/2021 Provi fausto: Pernell Fitzgerald MD Diagnosis: 1-2 po q6h prn pain Last Documented On 1 12:40PM By Pernell Fitzgerald ; [facility], [facility] Medications Administered Includes: Administered Medications from this encounter No Administered Medications Recorded Vital Signs Includes: Vital Signs from this encounter Vital Name 12/27/2023 09:42A Height (in) 68 Weight (lb) 162 Body Mass Index 24.6 Body Surface Area 1.9 Pain Level 4 Note: Last Documented: On 12/27/2023 9:42AM ; [facility], [facility] Results Includes: Results discussed during this [...] Last Documented On 4 8:48AM ; [facility], [facility] No recent change in diet 12/27/2023 Last Documented On 4 8:48AM ; [facility], [facility] Not a current smoker. 12/27/2023 Last Documented On 4 8:48AM ; [facility] Caffeine use 12/21/2022 Last Documented On 4 9:22AM ; [facility], [facility] Not exercising regularly 12/21/2022 Last Documented On 4 9:22AM ; [facility] Not using alcohol 03/27/2021 Last Documented On 4 9:22AM ; [facility] Not using drugs 03/27/2021 Last Documented On 4 9:22AM ; [facility] Smoking Status Unknown Procedures and Surgical History Includes: Procedures from this encounter Procedures Code Diagnosis Performing Provider Service L ocation Service Date use of tobacco assessment performed 1000F Last Documented On 4 9:22AM ; [facility], [facility] patient screened for future fall risk: documentation of any fall with injury in past year 1100F Last Documented On 4 9:22AM ; [facility] review of medications documented 1160F Last Documented On 4 9:22AM ; [facility] Surgical History Last Updated History of History of Gallbladder 2022 Last Documented On 4 9:22AM ; [facility], [facility] History of hysterectomy 12/21/2022 Last Documented On 4 9:22AM ; [facility], [facility] History of total hip replacement 023 Last Documented On 4 9:22AM ; [facility] Medical History Includes: Medical History addressed during this encounter Description Last Updated History of arthritis 12/21/2022 Last Documented On 4 9:22AM ; [facility], [facility] History of depression 12/21/2022 Last Documented On 4 9:22AM ; [facility], [facility] History of heart disease 12/21/2022 Last Documented On 4 9:22AM ; [facility], [facility] History of Heartburn / Acid Reflux 12/21 Last Documented On 4 9:22AM ; [facility], [facility] History of Hypertension 12/21/2022 Last Documented On 4 9:22AM ; [facility], [facility] History of Irregular Heartbeat 3 Last Documented On 4 9:22AM ; [facility], [facility] Recent immunization for flu 07/31/2021 1 12/28/2020 Last Documented On 4 9:22AM ; [facility], [facility] No recent immunization for pneumococcal pneumonia 03/27/2021 Last Documented On 4 9:22AM ; [facility], [facility] Family History Includes: Family History addressed during this encounter Description Last Updated Diabetes mellitus 12/21/2022 Last Documented On 4 9:22AM ; [facility], [facility] Family history of heart disease 12/21/19 23 Last Documented On 4 9:22AM ; [facility], [facility] Family history of osteoporosis 3 Last Documented On 4 9:22AM ; [facility], [facility] Family history of rheumatoid arthritis 0 12/21/2022 Last Documented On 4 9:22AM ; [facility], [facility] Review of Systems Includes: Review [...] Active Last Documented On 4 10:44AM ; [facility], [facility] Note: hyper Encounters Encounter Provider Location Date Check-In Time Check- Out Time Diagnosis Follow Up Pernell Fitzgerald MD [facility] 4 9:13AM 10:08AM Insurance Includes: Active Insurance Policies Plan Name Member ID Group # Subscriber Relationship Effect elena Dates 1 - Medicare Part B [facility] [id number] Karina Wilson Self 05/31/2013 - Unknown 2 - [facility] [employer] [id number] Karina Wilson Self 10/31/19 21 - Unknown Clinical Notes Includes: Clinical Notes from this encounter * Progress note Date Encounter Last Documented by 12/27/2023 Follow Up Last documented on 12/28/2023; 8:48 AM, Pernell Fitzgerald MD; [facility] Active Problems & Conditions - Joint [...] the had seen him previous neurologist in [facility] [place] it was diagnosed with Alzheimer's [...] Care Team - HIRAM PIERRE MD - [employer] - Luh Sesay PA-C
--- OUTSIDE RECORDS SUMMARY | 2025-02-22 12:36 | XMS_ITS ---
Care Plan - [facility], [facility] Created on: February 22, 2025 Karina Wilson : 1945 Sex: Female Author Organization [facility] , [facility] Address [address] [place] [address] Phone Care Team Providers Care Dust Mop Maker Name Role Phone Lázaro ISIDRO, Luh Unavailable [phone] Lia FIGUEREDO, Pernell Unavailable [phone] IGNACIO FIGUEREDO, HIRAM Unavailable [phone]
--- OUTSIDE RECORDS SUMMARY | 2025-02-22 12:37 | XMS_ITS ---
Author Organization [facility] , [facility] Address [address] [place] [address] Phone Care Team Providers Care Interior Design Program Chair Name Role Phone Lázaro ISIDRO, Luh Unavailable [phone] Lia FIGUEREDO, Pernell Unavailable [phone] IGNACIO FIGUEREDO, HIRAM Unavailable [phone] [...] Last Documented On 1 8:21AM ; [facility], [facility] Plan of Treatment Findings Encounter Date Patient screened for future fall risk: documentation of any fall with injury in past year Follow Up with Pernell Fitzgerald MD 05/08/2024 Last Documented On 4 3:41PM ; [facility], [facility] Instructions to patient Lose weight Last Documented On 3 9:58AM ; [facility], [facility] Lose weight Last Documented On 3 9:52AM ; [facility], [facility] Lose weight Last Documented On 2 9:10AM ; [facility], [facility] Assessments Includes: Assessments for all patient encounters No Assessments Recorded Instructions Includes: Instructions for all patient encounters Instructions to patient Lose weight Last Documented On 3 9:58AM ; [facility], [facility] Lose weight Last Documented On 3 9:52AM ; [facility], [facility] Lose weight Last Documented On 2 9:10AM ; [facility], [facility] Medical Equipment - Implanted Devices Includes: Current and historical Devices No Medical Equipment Recorded Medications Includes: Current and historical Medications Current Medications (continue as prescribed) Ondansetron 4 MG Oral Tablet Disintegrating 12/12/2023 Provider: Diagnosis: Last Documented On 4 9:22AM By Albania Darby ; [facility], [facility] Sotalol HCl 80 MG Oral Tablet 12/07/2023 Provider: HIRAM PIERRE MD Diagnosis: Last Documented On 4 9:22AM By Albania Darby ; [facility], [facility] Levothyroxine Sodium 25 MCG Oral Tablet 12/02/2023 Coni mitchell: HIRAM PIERRE MD Diagnosis: Last Documented On 4 9:22AM By Albania Darby ; [facility] Valsartan-hydroCHLOROthiazid e 320-12.5 MG Oral Tablet 12/02/2023 Provider: HIRAM PIERRE MD Diagnosis: Last Documented On 4 9:22AM By Albania Darby ; [facility], [facility] Venlafaxine HCl ER 150 MG Or al Capsule Extended Release 24 Hour 12/02/2023 Provider: HIRAM PIERRE MD Diagnosis: Last Documented On 4 9:22AM By Albania Darby ; [facility], [facility] Amoxicillin-Pot Clavulanate 875-125 MG Oral Tablet Provider: Diagnosis: Last Documented On 4 9:22AM By Albania Darby ; [facility], [facility] Cetirizine HCl 10 MG Oral Capsule 03/27/2021 Provide r: Diagnosis: Last Documented On 1 9:12AM By Ami Dickerson ; [facility], [facility] Tetracycline HCl 500 MG Oral Capsule 01/22/2021 Prov ider: CARLA RUIZ II, MD Diagnosis: Last Documented On 1 8:45AM By Pam Valencia ; [facility], [facility] Omeprazole 20 MG Oral Capsul e Delayed Release 01/22/2021 Provider: CARLA RUIZ II, MD Diagnosis: Last Documented On 1 8:45AM By Pam Valencia ; [facility] metroNIDAZOLE 250 MG Oral Tablet 01/22/2021 Provider : CARLA RUIZ II, MD Diagnosis: Last Documented On 1 8:45AM By Pam Valencia ; [facility] FeroSul 325 (65 Fe) MG Oral Tablet 12/22/2020 Provid er: Diagnosis: Last Documented On 1 8:45AM By Pam Valencia ; [facility], [facility] Xarelto 20 MG Oral Tablet 12/08/2020 Provider: Diagnosis: Last Documented On 1 8:45AM By Pam Valencia ; [facility], [facility] Donepezil HCl 10 MG Oral Tablet 11/13/2020 Provider: TONY CARRERA MD (N) Diagnosis: Last Documented On 1 8:45AM By Pam Valencia ; [facility], [facility] Meloxicam 15 MG Oral Tablet 09/06/2020 Provider: Diagnosis: Last Documented On 1 9:12AM By Ami Dickerson ; [facility], [facility] Atorvastatin Calcium 10 MG Oral Tablet 06/06/2020 Pr ovider: Diagnosis: Last Documented On 1 9:12AM By Ami Dickerson ; [facility], [facility] Past Medications on file oxyCODONE HCl 5 MG Oral Tablet 06/28/2023 - 07/03/2023 Provider: Pernell Fitzgerald MD Diagnosis: 1-2 p o q 6-8h for post op pain Last Documented On 3 8:44AM By Pernell Fitzgerald ; [facility], [facility] Meloxicam 15 MG Oral Tablet 06/28/2023 - 07/28/2023 Pr ovider: Pernell Fitzgerald MD Diagnosis: once a day Last Documented On 3 8:44AM By Pernell Fitzgerald ; [facility], [facility] Cefadroxil 500 MG Oral Capsule 06/28/2023 - 07/01/2023 Provider: Pernell Fitzgerald MD Diagnosis: twice a day Last Documented On 3 8:44AM By Pernell Fitzgerald ; [facility], [facility] traMADol HCl 50 MG Oral Tablet 06/28/2023 - 07/13/2023 Provider: Pernell Fitzgerald MD Diagnosis: 1-2 p o q 6-8h for breakthrough post op pain Last Documented On 3 8:44AM By Pernell Fitzgerald ; [facility], [facility] Acetaminophen 500 MG Oral Tablet 06/28/2023 - 07/28/20 23 Provider: Pernell Fitzgerald MD Diagnosis: 2 three times a day , AFTER SURGERY Last Documented On 3 8:29AM By Pernell Fitzgerald ; [facility], [facility] Colace 100 MG Oral Capsule 06/28/2023 - 07/28/2023 Pro vider: Pernell Fitzgerald MD Diagnosis: 1-2 tabs daily as needed, AFTER SURGERY Last Documented On 3 8:44AM By Pernell Fitzgerald ; [facility], [facility] Ondansetron HCl 4 MG Oral Tablet 06/28/2023 - 07/12/20 Provider: Pernell Fitzgerald MD Diagnosis: 1-2 p o q 6-8h as needed for nausea Last Documented On 3 8:44AM By Pernell Fitzgerald ; [facility], [facility] Mupirocin 2% External Ointment 06/23/2023 - 06/28/2023 Provider: Pernell Fitzgerald MD Diagnosis: as directed Apply to each no stril with a q tip once a day for 5 days prior to surgery Last Documented On 3 3:24PM By Laurie Pablo ; [facility], [facility] Mupirocin 2% External Ointment 06/08/2023 - 06/13/2023 Provider: Pernell Fitzgerald MD Diagnosis: as directed Apply to each no stril with a q tip once a day for 5 days prior to surgery Last Documented On 3 1:53PM By Laurie Pablo ; [facility], [facility] Cefadroxil 500 MG Oral Capsule 09/17/2021 - 09/20/2021 Provider: Pernell Fitzgerald MD Diagnosis: twice a day Last Documented On 1 2:48PM By Haley Allen ; [facility] Colace 100 MG Oral Capsule 09/17/2021 - 10/17/2021 Pro vider: Pernell Fitzgerald MD Diagnosis: 1-2 tablets daily, as needed, AFTER SURGERY Last Documented On 1 2:48PM By Haley Allen ; [facility] Zofran 4 MG Oral Tablet 09/17/2021 - 10/17/2021 Provid er: Pernell Fitzgerald MD Diagnosis: take 1 tablet every 6-8hrs for nausea, AFTER ZAIDA ANA Last Documented On 1 2:49PM By Haley Allen ; [facility] oxyCODONE HCl 5 MG Oral Tablet 09/17/2021 - 10/17/2021 Provider: Pernell Fitzgerald MD Diagnosis: take 1-2 tablets every 4-6hrs for post op pain Last Documented On 1 3:02PM By Pernell Fitzgerald ; [facility] Ultram 50 MG Oral Tablet 09/17/2021 - 10/17/2021 Provi fausto: Pernell Fitzgerald MD Diagnosis: 1-2 tablets every 6-8 hours for breakthrough pos t op pain Last Documented On 1 3:02PM By Pernell Fitzgerald ; [facility] Aspirin Adult Low Strength 8 1 MG Oral Tablet Delayed Release 09/17/2021 - 11/01/2021 Provider: Pernell Fitzgerald MD Diagnosis: twice a day Last Documented On 1 2:47PM By Haley Allen ; [facility] Acetaminophen 500 MG Oral Tablet 09/17/2021 - 10/17/20 21 Provider: Pernell Fitzgerald MD Diagnosis: take 2 tablets 3 times daily, AFTER SURGERY Last Documented On 1 2:47PM By Haley Allen ; [facility] oxyCODONE HCl 5 MG Oral Tablet 09/14/2021 - 10/14/2021 Provider: Pernell Fitzgerald MD Diagnosis: take 1-2 tablets every 4-6hrs for post op pain Last Documented On 1 4:52PM By Pernell Fitzgerald ; [facility] Ultram 50 MG Oral Tablet 07/31/2021 - 08/30/2021 Provi fausto: Pernell Fitzgerald MD Diagnosis: 1-2 po q6h prn pain Last Documented On 1 2:44PM By Pernell Fitzgerald ; [facility] Ultram 50 MG Oral Tablet 06/02/2021 - 07/02/2021 Provi fausto: Pernell Fitzgerald MD Diagnosis: 1-2 po q6h prn pain Last Documented On 1 12:40PM By Pernell Fitzgerald ; [facility] Valsartan-hydroCHLOROthiazid e 320-12.5 MG Oral Tablet 09/09/2020 - 12/27/2023 Provider: Diagnosis: Last Documented On 4 12:06PM By Lissette De ; [facility] Venlafaxine HCl ER 150 MG Or al Capsule Extended Release 24 Hour 09/06/2020 - 12/27/2023 Provider: Diagnosis: Last Documented On 4 12:06PM By Lissette MICHAEL [facility] Sotalol HCl 80 MG Oral Tablet 06/06/2020 - 12/27/2023 Provider: Diagnosis: Last Documented On 4 12:06PM By Lissette De ; [facility] Medications Administered Includes: Administered Medications in patient's chart No Administered Medications Recorded Vital Signs Includes: Vital Signs from 02/23/2024 through 02/22/2025 Vital Name 05/08/2024 10:52A Height (in) 68 Weight (lb) 154.3 Body Mass Index 23.5 Body Surface Area 1.8 Pain Level 8 Last Documented: On 05/08/2024 10:53A M ; [facility] Results Includes: Results from 02/23/2024 through 02/22/2025 No Results Recorded For Specified Dates History of Present Illness History of Present Illness not supported for this document type No History of Present Illness Recorded Social History Description Last Updated Tobacco non-user 12/27/2023 Last Documented On 4 8:48AM ; [facility] No recent change in diet 12/27/2023 Last Documented On 4 8:48AM ; [facility] Not a current smoker. 12/27/2023 Last Documented On 4 8:48AM ; [facility], [facility] Caffeine use 12/21/2022 Last Documented On 3 10:34AM ; [facility], [facility] Not exercising regularly 12/21/2022 Last Documented On 3 10:34AM ; [facility], [facility] Non-smoker 03/27/2021 Last Documented On 1 3:32PM ; [facility], [facility] No recent change in diet 03/27/2021 Last Documented On 1 3:32PM ; [facility], [facility] Not a current smoker. 03/27/2021 Last Documented On 1 3:32PM ; [facility], [facility] Not using alcohol 03/27/2021 Last Documented On 1 3:32PM ; [facility], [facility] Not using drugs 03/27/2021 Last Documented On 1 3:32PM ; [facility], [facility] Smoking Status Unknown Procedures and Surgical History Includes: Procedures from 02/23/2024 through 02/22/2025 Procedures Code Diagnosis Performing Provider Service Location Service Date X-RAY EXAM OF KNEE 1 OR 2 VIEWS (RIGHT) 23065 Unilateral primary osteoarthritis, right knee Pernell Fitzgerald MD [facility] 05/08/2024 Last Documented On 4 4:26PM ; [facility] Surgical History Last Updated History of History of Gallbladder 2022 Last Documented On 3 10:34AM ; [facility], [facility] History of hysterectomy 12/21/2022 Last Documented On 3 10:34AM ; [facility] History of total hip replacement 023 Last Documented On 3 10:34AM ; [facility], [facility] Medical History Includes: Medical History in patient's chart Description Last Updated History of arthritis 12/21/2022 Last Documented On 3 10:34AM ; [facility] History of depression 12/21/2022 Last Documented On 3 10:34AM ; [facility], [facility] History of heart disease 12/21/2022 Last Documented On 3 10:34AM ; [facility] History of Heartburn / Acid Reflux 12/21 Last Documented On 3 10:34AM ; [facility] History of Hypertension 12/21/2022 Last Documented On 3 10:34AM ; [facility] History of Irregular Heartbeat 3 Last Documented On 3 10:34AM ; [facility] Recent immunization for flu 07/31/2021 1 12/28/2020 Last Documented On 2 4:22PM ; [facility] No recent immunization for pneumococcal pneumonia 03/27/2021 Last Documented On 1 3:32PM ; [facility] Family History Includes: Family History in patient's chart Description Last Updated Diabetes mellitus 12/21/2022 Last Documented On 3 10:34AM ; [facility] Family history of heart disease 12/21/19 23 Last Documented On 3 10:34AM ; [facility] Family history of osteoporosis 3 Last Documented On 3 10:34AM ; [facility] Family history of rheumatoid arthritis 0 12/21/2022 Last Documented On 3 10:34AM ; [facility] Review of Systems Review of Systems not [...] Active Last Documented On 4 10:44AM ; [facility] Note: hyper Encounters Includes: Encounters from 02/23/2024 through 02/22/2025 Encounter Provider Location Date Check-In Time Check- Out Time Diagnosis Follow Up Pernell Fitzgerald MD [facility] 4 10:03AM 11:14AM Insurance Includes: Active Insurance Policies Plan Name Member ID Group # Subscriber Relationship Effect elena Dates 1 - Medicare Part B [facility] [id number] Karina Wilson Self 05/31/2013 - Unknown 2 - [employer] [facility] [employer] [id number] Karina Wilson Self 10/31/19 21 - Unknown Clinical Notes Includes: Signed Clinical Notes starting from 10/14/2022 * Progress note Date Encounter Last Documented by 05/08/2024 Follow Up Last documented on 05/09/2024; 3:41 PM, Pernell Fitzgerald MD; [facility], [facility] Active Problems & Conditions - Joint Pain [...] Care Team - HIRAM PIERRE MD - PUFFER TENDER - Luh Sesay PA-C
--- OUTSIDE RECORDS SUMMARY | 2025-02-22 12:37 | XMS_ITS | Clinical Summary ---
Author Organization [facility] , [facility] Address [address] [address] Phone Care Team Providers Care Anatomy And Physiology Instructor Name Role Phone Lázaro ISIDRO, Luh Unavailable [phone] Lia FIGUEREDO, Pernell Unavailable [phone] IGNACIO FIGUEREDO, HIRAM Unavailable [phone] Reason for Visit and Chief Complaint The Chief Complaint is: left hip pain Problems Includes: Problems addressed during this encounter and other active Problems All Visits Onset Date Resolved Date Provider Condition S tatus Joint Pain in the Left Hip 03/27/2021 Pernell marshall MD Active Last Documented On 8:21AM ; [facility] Plan of Treatment Fall Risk [...] - Last Documented On 08/25/2023 1:29PM ; [facility] Patient was seen by myself and Dr. Fitzgerald. Robert Hayward PA-C Patient will follow- up 3 months repeat x-rays of her left hip. - Last Documented On 08/25/2023 1:29PM ; [facility] Assessments Includes: Assessments from this encounter Findings Left total hip revision 07/01/2023 - Last Documented On 08/25/2023 1:29PM ; [facility] Medical Equipment - Implanted Devices Includes: Current Devices No Medical Equipment Recorded Medications Includes: Medications discussed during this encounter and other current Medications Current Medications (continue as prescribed) Ondansetron 4 MG Oral Tablet Disintegrating 12/12/2023 Provider: Diagnosis: Last Documented On 4 9:22AM By Albania Darby ; [facility] Sotalol HCl 80 MG Oral Tablet 12/07/2023 Provider: HIRAM PIERRE MD Diagnosis: Last Documented On 4 9:22AM By Albania Darby ; [facility], [facility] Levothyroxine Sodium 25 MCG Oral Tablet 12/02/2023 Coni mitchell: HIRAM PIERRE MD Diagnosis: Last Documented On 4 9:22AM By Albania Darby ; [facility], [facility] Valsartan-hydroCHLOROthiazid e 320-12.5 MG Oral Tablet 12/02/2023 Provider: HIRAM PIERRE MD Diagnosis: Last Documented On 4 9:22AM By Albania Darby ; [facility], [facility] Venlafaxine HCl ER 150 MG Or al Capsule Extended Release 24 Hour 12/02/2023 Provider: HIRAM PIERRE MD Diagnosis: Last Documented On 4 9:22AM By Albania Darby ; [facility], [facility] Amoxicillin-Pot Clavulanate 875-125 MG Oral Tablet Provider: Diagnosis: Last Documented On 4 9:22AM By Albania Darby ; [facility], [facility] Cetirizine HCl 10 MG Oral Capsule 03/27/2021 Provide r: Diagnosis: Last Documented On 1 9:12AM By Ami Dickerson ; [facility], [facility] Tetracycline HCl 500 MG Oral Capsule 01/22/2021 Prov ider: CARLA RUIZ II, MD Diagnosis: Last Documented On 1 8:45AM By Pam Valencia ; [facility], [facility] Omeprazole 20 MG Oral Capsul e Delayed Release 01/22/2021 Provider: CARLA RUIZ II, MD Diagnosis: Last Documented On 1 8:45AM By Pam Valencia ; [facility], [facility] metroNIDAZOLE 250 MG Oral Tablet 01/22/2021 Provider : CARLA RUIZ II, MD Diagnosis: Last Documented On 1 8:45AM By Pam Valencia ; [facility] FeroSul 325 (65 Fe) MG Oral Tablet 12/22/2020 Provid er: Diagnosis: Last Documented On 1 8:45AM By Pam Valencia ; [facility] Xarelto 20 MG Oral Tablet 12/08/2020 Provider: Diagnosis: Last Documented On 1 8:45AM By Pam Valencia ; [facility] Donepezil HCl 10 MG Oral Tablet 11/13/2020 Provider: TONY CARRERA MD (N) Diagnosis: Last Documented On 1 8:45AM By Pam Valencia ; [facility] Meloxicam 15 MG Oral Tablet 09/06/2020 Provider: Diagnosis: Last Documented On 1 9:12AM By Ami Dickerson ; [facility] Atorvastatin Calcium 10 MG Oral Tablet 06/06/2020 Pr ovider: Diagnosis: Last Documented On 1 9:12AM By Ami Dickerson ; [facility], [facility] Past Medications on file oxyCODONE HCl 5 MG Oral Tablet 06/28/2023 - 07/03/2023 Provider: Pernell Fitzgerald MD Diagnosis: 1-2 p o q 6-8h for post op pain Last Documented On 3 8:44AM By Pernell Fitzgerald ; [facility] Meloxicam 15 MG Oral Tablet 06/28/2023 - 07/28/2023 Pr ovider: Pernell Fitzgerald MD Diagnosis: once a day Last Documented On 3 8:44AM By Pernell Fitzgerald ; [facility] Cefadroxil 500 MG Oral Capsule 06/28/2023 - 07/01/2023 Provider: Pernell Fitzgerald MD Diagnosis: twice a day Last Documented On 3 8:44AM By Pernell Fitzgerald ; [facility] traMADol HCl 50 MG Oral Tablet 06/28/2023 - 07/13/2023 Provider: Pernell Fitzgerald MD Diagnosis: 1-2 p o q 6-8h for breakthrough post op pain Last Documented On 3 8:44AM By Pernell Fitzgerald ; [facility], [facility] Acetaminophen 500 MG Oral Tablet 06/28/2023 - 07/28/20 Provider: Pernell Fitzgerald MD Diagnosis: 2 three times a day , AFTER SURGERY Last Documented On 3 8:29AM By Pernell Fitzgerald ; [facility], [facility] Colace 100 MG Oral Capsule 06/28/2023 - 07/28/2023 Pro vider: Pernell Fitzgerald MD Diagnosis: 1-2 tabs daily as needed, AFTER SURGERY Last Documented On 3 8:44AM By Pernell Fitzgerald ; [facility], [facility] Ondansetron HCl 4 MG Oral Tablet 06/28/2023 - 07/12/20 Provider: Pernell Fitzgerald MD Diagnosis: 1-2 p o q 6-8h as needed for nausea Last Documented On 3 8:44AM By Pernell Fitzgerald ; [facility], [facility] Mupirocin 2% External Ointment 06/23/2023 - 06/28/2023 Provider: Pernell Fitzgerald MD Diagnosis: as directed Apply to each no stril with a q tip once a day for 5 days prior to surgery Last Documented On 3 3:24PM By Laurie Pablo ; [facility], [facility] Mupirocin 2% External Ointment 06/08/2023 - 06/13/2023 Provider: Pernell Fitzgerald MD Diagnosis: as directed Apply to each no stril with a q tip once a day for 5 days prior to surgery Last Documented On 3 1:53PM By Laurie Pablo ; [facility], [facility] Cefadroxil 500 MG Oral Capsule 09/17/2021 - 09/20/2021 Provider: Pernell Fitzgerald MD Diagnosis: twice a day Last Documented On 1 2:48PM By Haley Allen ; [facility], [facility] Colace 100 MG Oral Capsule 09/17/2021 - 10/17/2021 Pro vider: Pernell Fitzgerald MD Diagnosis: 1-2 tablets daily, as needed, AFTER SURGERY Last Documented On 1 2:48PM By Haley Allen ; [facility] Zofran 4 MG Oral Tablet 09/17/2021 - 10/17/2021 Provid er: Pernell Fitzgerald MD Diagnosis: take 1 tablet every 6-8hrs for nausea, AFTER ZAIDA ANA Last Documented On 1 2:49PM By Haley Allen ; [facility] oxyCODONE HCl 5 MG Oral Tablet 09/17/2021 - 10/17/2021 Provider: Pernell Fitzgerald MD Diagnosis: take 1-2 tablets every 4-6hrs for post op pain Last Documented On 1 3:02PM By Pernell Fitzgerald ; [facility] Ultram 50 MG Oral Tablet 09/17/2021 - 10/17/2021 Provi fausto: Pernell Fitzgerald MD Diagnosis: 1-2 tablets every 6-8 hours for breakthrough pos t op pain Last Documented On 1 3:02PM By Pernell Fitzgerald ; [facility], [facility] Aspirin Adult Low Strength 8 1 MG Oral Tablet Delayed Release 09/17/2021 - 11/01/2021 Provider: Pernell Fitzgerald MD Diagnosis: twice a day Last Documented On 1 2:47PM By Haley Allen ; [facility], [facility] Acetaminophen 500 MG Oral Tablet 09/17/2021 - 10/17/20 21 Provider: Pernell Fitzgerald MD Diagnosis: take 2 tablets 3 times daily, AFTER SURGERY Last Documented On 1 2:47PM By Haley Allen ; [facility], [facility] oxyCODONE HCl 5 MG Oral Tablet 09/14/2021 - 10/14/2021 Provider: Pernell Fitzgerald MD Diagnosis: take 1-2 tablets every 4-6hrs for post op pain Last Documented On 1 4:52PM By Pernell Fitzgerald ; [facility] Ultram 50 MG Oral Tablet 07/31/2021 - 08/30/2021 Provi fausto: Pernell Fitzgerald MD Diagnosis: 1-2 po q6h prn pain Last Documented On 1 2:44PM By Pernell Fitzgerald ; [facility] Ultram 50 MG Oral Tablet 06/02/2021 - 07/02/2021 Provi fausto: Pernell Fitzgerald MD Diagnosis: 1-2 po q6h prn pain Last Documented On 1 12:40PM By Pernlel Fitzgerald ; [facility], [facility] Medications Administered Includes: Administered Medications from this [...] Last Documented On 3 10:04AM ; [facility] Smoking Status Unknown Procedures and Surgical History Includes: Procedures from this encounter Procedures Code Diagnosis Performing Provider Service L ocation Service Date use of tobacco assessment performed 1000F Last Documented On 3 10:04AM ; [facility] patient screened for future fall risk: documentation of any fall with injury in past year 1100F Last Documented On 3 10:04AM ; [facility], [facility] review of medications documented 1160F Last Documented On 3 10:04AM ; [facility], [facility] Surgical History Last Updated History of History of Gallbladder 2022 Last Documented On 3 10:04AM ; [facility] History of hysterectomy 12/21/2022 Last Documented On 3 10:04AM ; [facility] History of total hip replacement 023 Last Documented On 3 10:04AM ; [facility], [facility] Medical History Includes: Medical History addressed during this encounter Description Last Updated History of arthritis 12/21/2022 Last Documented On 3 10:04AM ; [facility] History of depression 12/21/2022 Last Documented On 3 10:04AM ; [facility] History of heart disease 12/21/2022 Last Documented On 3 10:04AM ; [facility] History of Heartburn / Acid Reflux 12/21 Last Documented On 3 10:04AM ; [facility], [facility] History of Hypertension 12/21/2022 Last Documented On 3 10:04AM ; [facility], [facility] History of Irregular Heartbeat 3 Last Documented On 3 10:04AM ; [facility] Recent immunization for flu 07/31/2021 1 12/28/2020 Last Documented On 3 10:04AM ; [facility] No recent immunization for pneumococcal pneumonia 03/27/2021 Last Documented On 3 10:04AM ; [facility] Family History Includes: Family History addressed during this encounter Description Last Updated Diabetes mellitus 12/21/2022 Last Documented On 3 10:04AM ; [facility] Family history of heart disease 12/21/19 23 Last Documented On 3 10:04AM ; [facility] Family history of osteoporosis 3 Last Documented On 3 10:04AM ; [facility] Family history of rheumatoid arthritis 0 12/21/2022 Last Documented On 3 10:04AM ; [facility] Review of Systems Includes: Review [...] Active Last Documented On 4 10:44AM ; [facility] Note: hyper Encounters Encounter Provider Location Date Check-In Time Check- Out Time Diagnosis Follow Up Pernell Fitzgerald MD [facility] 3 10:02AM 10:52AM Insurance Includes: Active Insurance Policies Plan Name Member ID Group # Subscriber Relationship Effect elena Dates 1 - Medicare Part B [facility] [id number] Karina Wilson Self 05/31/2013 - Unknown 2 - [facility] [employer] [id number] Karina Wilson Self 10/31/19 21 - Unknown Clinical Notes Includes: Clinical Notes from this encounter * Progress note Date Encounter Last Documented by 08/23/2023 Follow Up Last documented on 08/25/2023; 1:29 PM, Pernell Fitzgerald MD; [facility], [facility] Active Problems & Conditions - Joint Pain [...] Care Team - HIRAM PIERRE MD - COMPTROLLER - Luh Sesay PA-C
--- OUTSIDE RECORDS SUMMARY | 2025-02-22 12:37 | XMS_ITS | Clinical Summary ---
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, 2023 - Last Documented On 05/09/2024 3:41PM ; [facility] Medical Equipment - Implanted Devices Includes: Current Devices No Medical Equipment Recorded Medications Includes: Medications discussed during this encounter and other current Medications Current Medications (continue as prescribed) Ondansetron 4 MG Oral Tablet Disintegrating 12/12/2023 Provider: Diagnosis: Last Documented On 4 9:22AM By Albania Darby ; [facility] Sotalol HCl 80 MG Oral Tablet 12/07/2023 Provider: HIRAM PIERRE MD Diagnosis: Last Documented On 4 9:22AM By Albania Darby ; [facility] Levothyroxine Sodium 25 MCG Oral Tablet 12/02/2023 Coni mitchell: HIRAM PIERRE MD Diagnosis: Last Documented On 4 9:22AM By Albania Darby ; [facility] Valsartan-hydroCHLOROthiazid e 320-12.5 MG Oral Tablet 12/02/2023 Provider: HIRAM PIERRE MD Diagnosis: Last Documented On 4 9:22AM By Albania Darby ; [facility] Venlafaxine HCl ER 150 MG Or al Capsule Extended Release 24 Hour 12/02/2023 Provider: HIRAM PIERRE MD Diagnosis: Last Documented On 4 9:22AM By Albania Darby ; [facility] Amoxicillin-Pot Clavulanate 875-125 MG Oral Tablet Provider: Diagnosis: Last Documented On 4 9:22AM By Albania Darby ; [facility] Cetirizine HCl 10 MG Oral Capsule 03/27/2021 Provide r: Diagnosis: Last Documented On 1 9:12AM By Ami Dickerson ; [facility] Tetracycline HCl 500 MG Oral Capsule 01/22/2021 Prov ider: CARLA RUIZ II, MD Diagnosis: Last Documented On 1 8:45AM By Pam Valencia ; [facility] Omeprazole 20 MG Oral Capsul e Delayed Release 01/22/2021 Provider: CARLA RUIZ II, MD Diagnosis: Last Documented On 1 8:45AM By Pam Valencia ; [facility] metroNIDAZOLE 250 MG Oral Tablet 01/22/2021 Provider : CALRA RUIZ II, MD Diagnosis: Last Documented On 1 8:45AM By Pam Valencia ; [facility] FeroSul 325 (65 Fe) MG Oral Tablet 12/22/2020 Provid er: Diagnosis: Last Documented On 1 8:45AM By Pam Valencia ; [facility] Xarelto 20 MG Oral Tablet 12/08/2020 Provider: Diagnosis: Last Documented On 1 8:45AM By Pam Valencia ; [facility] Donepezil HCl 10 MG Oral Tablet 11/13/2020 Provider: TONY CARRERA MD (N) Diagnosis: Last Documented On 1 8:45AM By Pam Valencia ; [facility] Meloxicam 15 MG Oral Tablet 09/06/2020 Provider: Diagnosis: Last Documented On 1 9:12AM By Ami Dickerson ; [facility] Atorvastatin Calcium 10 MG Oral Tablet 06/06/2020 Pr ovider: Diagnosis: Last Documented On 1 9:12AM By Ami Dickerson ; [facility] Past Medications on file oxyCODONE HCl 5 MG Oral Tablet 06/28/2023 - 07/03/2023 Provider: Pernell Fitzgerald MD Diagnosis: 1-2 p o q 6-8h for post op pain Last Documented On 3 8:44AM By Pernell Fitzgerald ; [facility] Meloxicam 15 MG Oral Tablet 06/28/2023 - 07/28/2023 Pr ovider: Pernell Fitzgerald MD Diagnosis: once a day Last Documented On 3 8:44AM By Pernell Fitzgerald ; [facility] Cefadroxil 500 MG Oral Capsule 06/28/2023 - 07/01/2023 Provider: Pernell Fitzgerald MD Diagnosis: twice a day Last Documented On 3 8:44AM By Pernell Fitzgerald ; [facility] traMADol HCl 50 MG Oral Tablet 06/28/2023 - 07/13/2023 Provider: Pernell Fitzgerald MD Diagnosis: 1-2 p o q 6-8h for breakthrough post op pain Last Documented On 3 8:44AM By Pernell Fitzgerald ; [facility] Acetaminophen 500 MG Oral Tablet 06/28/2023 - 07/28/20 23 Provider: Pernell Fitzgerald MD Diagnosis: 2 three times a day , AFTER SURGERY Last Documented On 3 8:29AM By Pernell Fitzgerald ; [facility] Colace 100 MG Oral Capsule 06/28/2023 - 07/28/2023 Pro vider: Pernell Fitzgerald MD Diagnosis: 1-2 tabs daily as needed, AFTER SURGERY Last Documented On 3 8:44AM By Pernell Fitzgerald ; [facility] Ondansetron HCl 4 MG Oral Tablet 06/28/2023 - 07/12/20 23 Provider: Pernell Fitzgerald MD Diagnosis: 1-2 p o q 6-8h as needed for nausea Last Documented On 3 8:44AM By Pernell Fitzgerald ; [facility] Mupirocin 2% External Ointment 06/23/2023 - 06/28/2023 Provider: Pernell Fitzgerald MD Diagnosis: as directed Apply to each no stril with a q tip once a day for 5 days prior to surgery Last Documented On 3 3:24PM By Laurie Pablo ; [facility] Mupirocin 2% External Ointment 06/08/2023 - 06/13/2023 Provider: Pernell Fitzgerald MD Diagnosis: as directed Apply to each no stril with a q tip once a day for 5 days prior to surgery Last Documented On 3 1:53PM By Laurie Pablo ; [facility] Cefadroxil 500 MG Oral Capsule 09/17/2021 - 09/20/2021 Provider: Pernell Fitzgerald MD Diagnosis: twice a day Last Documented On 1 2:48PM By Haley Allen ; [facility] Colace 100 MG Oral Capsule 09/17/2021 - 10/17/2021 Pro vider: Pernell Fitzgerald MD Diagnosis: 1-2 tablets daily, as needed, AFTER SURGERY Last Documented On 1 2:48PM By Haley Allen ; [facility] Zofran 4 MG Oral Tablet 09/17/2021 - 10/17/2021 Provid er: Pernell Fitzgerald MD Diagnosis: take 1 tablet every 6-8hrs for nausea, AFTER ZAIDA ANA Last Documented On 1 2:49PM By Haley Allen ; [facility] oxyCODONE HCl 5 MG Oral Tablet 09/17/2021 - 10/17/2021 Provider: Pernell Fitzgerald MD Diagnosis: take 1-2 tablets every 4-6hrs for post op pain Last Documented On 1 3:02PM By Pernell Fitzgerald ; [facility] Ultram 50 MG Oral Tablet 09/17/2021 - 10/17/2021 Provi fausto: Pernell Fitzgerald MD Diagnosis: 1-2 tablets every 6-8 hours for breakthrough pos t op pain Last Documented On 1 3:02PM By Pernell Fitzgerald ; [facility] Aspirin Adult Low Strength 8 1 MG Oral Tablet Delayed Release 09/17/2021 - 11/01/2021 Provider: Pernell Fitzgerald MD Diagnosis: twice a day Last Documented On 1 2:47PM By Haley Allen ; [facility] Acetaminophen 500 MG Oral Tablet 09/17/2021 - 10/17/20 21 Provider: Pernell Fitzgerald MD Diagnosis: take 2 tablets 3 times daily, AFTER SURGERY Last Documented On 1 2:47PM By Haley Allen ; [facility] oxyCODONE HCl 5 MG Oral Tablet 09/14/2021 - 10/14/2021 Provider: Pernell Fitzgerald MD Diagnosis: take 1-2 tablets every 4-6hrs for post op pain Last Documented On 1 4:52PM By Pernell Fitzgerald ; [facility] Ultram 50 MG Oral [...] 03/27/2021 Last Documented On 4 10:44AM ; [facility] Smoking Status Unknown Procedures and Surgical History Includes: Procedures from this encounter Procedures Code Diagnosis Performing Provider Service Location Service Date X-RAY EXAM OF KNEE 1 OR 2 VIEWS (RIGHT) 34415 Unilateral primary osteoarthritis, right knee Pernell Fitzgerald MD [facility] 05/08/2024 Last Documented On 4 4:26PM ; [facility] use of tobacco assessment performed 1000F Last Documented On 4 10:44AM ; [facility] patient screened for future fall risk: documentation of any fall with injury in past year 1100F Last Documented On 4 10:44AM ; [facility] review of medications documented 1160F Last Documented On 4 10:44AM ; [facility] Surgical History Last Updated History of History of Gallbladder 2022 Last Documented On 4 10:44AM ; [facility] History of hysterectomy 12/21/2022 Last Documented On 4 10:44AM ; [facility] History of total hip replacement 023 Last Documented On 4 10:44AM ; [facility] Medical History Includes: Medical History addressed during this encounter Description Last Updated History of arthritis 12/21/2022 Last Documented On 4 10:44AM ; [facility] History of depression 12/21/2022 Last Documented On 4 10:44AM ; [facility] History of heart disease 12/21/2022 Last Documented On 4 10:44AM ; [facility] History of Heartburn / Acid Reflux 12/21 Last Documented On 4 10:44AM ; [facility] History of Hypertension 12/21/2022 Last Documented On 4 10:44AM ; [facility] History of Irregular Heartbeat 3 Last Documented On 4 10:44AM ; [facility] Recent immunization for flu 07/31/2021 1 12/28/2020 [...] Active Last Documented On 4 10:44AM ; [facility] Note: hyper Encounters Encounter Provider Location Date Check-In Time Check- Out Time Diagnosis Follow Up Pernell Fitzgerald MD [facility] [place] 4 10:03AM 11:14AM Insurance Includes: Active Insurance Policies Plan Name Member ID Group # Subscriber Relationship Effect elena Dates 1 - Medicare Part B [facility] [id number] Karina Wilson Self 05/31/2013 - Unknown 2 - [facility] [employer] [id number] Karina Wilson Self 10/31/19 21 - Unknown Clinical Notes Includes: Clinical Notes from this encounter * Progress note Date Encounter Last Documented by 05/08/2024 Follow Up Last documented on 05/09/2024; 3:41 PM, Pernell Fitzgerald MD; [facility] Active Problems & Conditions - Joint Pain [...] Care Team - HIRAM PIERRE MD - COVER MACHINE OPERATOR - Luh Sesay PA-C
[2025-02-22 12:55] VITALS: BP 130/83; PULSE 75; RESP 18; TEMP 36.6; O2SAT 98
[2025-02-22] MEDS: ERTAPENEM SODIUM 1 GM VIAL IM (12:55)
== END 2025-02-22 13:00 | disposition home or self-care (01) ==
LOC: INF 12:35
PROVIDERS: PCP Family Medicine; Visit Provider Student in an Organized Health Care Education/Training Program
DX: N39.0 Urinary tract infection, site not specified (principal)
CPT/HCPCS: 96372; J1335

== ENCOUNTER 2025-02-24 17:29 | Emergency (ER) | payer MEDICARE, SELFPAY ==
[2025-02-24 17:32] VITALS: BP 171/92; PULSE 71; RESP 18; TEMP 36.6; O2SAT 99; BMI 24.5
[2025-02-24 17:45] VITALS: BP 155/91; PULSE 68; O2SAT 98
[2025-02-24 17:46] LABS: Microscopic, Urine URINE MICROSCOPIC (MICROSCOPIC)
--- OUTSIDE RECORDS SUMMARY | 2025-02-24 17:46 | XMS_ITS | Clinical Summary ---
Author Organization [facility] Address [address] [place] [address] Phone Care Team Providers Care Computational Sciences Professor Name Role Phone Lázaro ISIDRO, Luh Unavailable [phone] Lia FIGUEREDO, Pernell Unavailable [phone] IGNACIO FIGUEREDO, HIRAM Unavailable [phone] Reason for Visit and Chief Complaint The Chief Complaint is: left hip pain Problems Includes: Problems addressed during this encounter and other active Problems All Visits Onset Date Resolved Date Provider Condition S tatus Joint Pain in the Left Hip 03/27/2021 Pernell marshall MD Active Last Documented On 8:21AM ; [facility] Plan of Treatment Fall Risk [...] - Last Documented On 12/28/2023 8:48AM ; [facility] Patient was seen by myself [...] - Last Documented On 12/28/2023 8:48AM ; [facility], [facility] Assessments Includes: Assessments from this encounter Findings 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, 2023 - Last Documented On 12/28/2023 8:48AM ; [facility] Medical Equipment - Implanted Devices Includes: Current Devices No Medical Equipment Recorded Medications Includes: Medications discussed during this encounter and other current Medications Discontinued / Stopped on this date on 09/09/2020 Valsartan-hydroCHLOROthiazide 320-12.5 MG Oral Tablet Provider: Diagnosis: Last Documented On 4 12:06PM By Lissette De ; [facility], [facility] Venlafaxine HCl ER 150 MG Or al Capsule Extended Release 24 Hour Provider: Diagnosis: Last Documented On 4 12:06PM By Lissette De ; [facility] Sotalol HCl 80 MG Oral Tablet Provider: Diagnosis: Last Documented On 4 12:06PM By Lissette De ; [facility] Current Medications (continue as prescribed) Ondansetron 4 MG Oral Tablet Disintegrating 12/12/2023 Provider: Diagnosis: Last Documented On 4 9:22AM By Albania Darby ; [facility] Sotalol HCl 80 MG Oral Tablet 12/07/2023 Provider: HIRAM PIERRE MD Diagnosis: Last Documented On 4 9:22AM By Albania Darby ; [facility] Levothyroxine Sodium 25 MCG Oral Tablet 12/02/2023 Coni mitchell: HIRAM PIERRE MD Diagnosis: Last Documented On 4 9:22AM By Albania Darby ; [facility] Valsartan-hydroCHLOROthiazid e 320-12.5 MG Oral Tablet 12/02/2023 Provider: HIRAM PIERRE MD Diagnosis: Last Documented On 4 9:22AM By Albania Darby ; [facility] Venlafaxine HCl ER 150 MG Or al Capsule Extended Release 24 Hour 12/02/2023 Provider: HIRAM PIERRE MD Diagnosis: Last Documented On 4 9:22AM By Albania Darby ; [facility] Amoxicillin-Pot Clavulanate 875-125 MG Oral Tablet Provider: Diagnosis: Last Documented On 4 9:22AM By Albania Darby ; [facility] Cetirizine HCl 10 MG Oral Capsule 03/27/2021 Provide r: Diagnosis: Last Documented On 1 9:12AM By Ami Dickerson ; [facility] Tetracycline HCl 500 MG Oral Capsule 01/22/2021 Prov ider: CARLA RUIZ II, MD Diagnosis: Last Documented On 1 8:45AM By Pam Valencia ; [facility] Omeprazole 20 MG Oral Capsul e Delayed Release 01/22/2021 Provider: CARLA RUIZ II, MD Diagnosis: Last Documented On 8:45AM By Pam Valencia ; [facility] metroNIDAZOLE 250 MG Oral Tablet 01/22/2021 Provider : CARLA RUIZ II, MD Diagnosis: Last Documented On 1 8:45AM By Pam Valencia ; [facility] FeroSul 325 (65 Fe) MG Oral Tablet 12/22/2020 Provid er: Diagnosis: Last Documented On 1 8:45AM By Pam Valencia ; [facility] Xarelto 20 MG Oral Tablet 12/08/2020 Provider: Diagnosis: Last Documented On 1 8:45AM By Pam Valencia ; [facility] Donepezil HCl 10 MG Oral Tablet 11/13/2020 Provider: TONY CARRERA MD (N) Diagnosis: Last Documented On 1 8:45AM By Pam Valencia ; [facility] Meloxicam 15 MG Oral Tablet 09/06/2020 Provider: Diagnosis: Last Documented On 1 9:12AM By Ami Dickerson ; [facility] Atorvastatin Calcium 10 MG Oral Tablet 06/06/2020 Pr ovider: Diagnosis: Last Documented On 1 9:12AM By Ami Dickerson ; [facility] Past Medications on file oxyCODONE HCl 5 MG Oral Tablet 06/28/2023 - 07/03/2023 Provider: Pernell Fitzgerald MD Diagnosis: 1-2 p o q 6-8h for post op pain Last Documented On 3 8:44AM By Pernell Fitzgerald ; [facility] Meloxicam 15 MG Oral Tablet 06/28/2023 - 07/28/2023 Pr ovider: Pernell Fitzgerald MD Diagnosis: once a day Last Documented On 3 8:44AM By Pernell Fitzgerald ; [facility] Cefadroxil 500 MG Oral Capsule 06/28/2023 - 07/01/2023 Provider: Pernell Fitzgerald MD Diagnosis: twice a day Last Documented On 3 8:44AM By Pernell Fitzgerald ; [facility] traMADol HCl 50 MG Oral Tablet 06/28/2023 - 07/13/2023 Provider: Pernell Fitzgerald MD Diagnosis: 1-2 p o q 6-8h for breakthrough post op pain Last Documented On 3 8:44AM By Pernell Fitzgerald ; [facility] Acetaminophen 500 MG Oral Tablet 06/28/2023 - 07/28/20 Provider: Pernell Fitzgerald MD Diagnosis: 2 three times a day , AFTER SURGERY Last Documented On 3 8:29AM By Gimenezshannan Fitzgerald ; [facility] Colace 100 MG Oral Capsule 06/28/2023 - 07/28/2023 Pro vider: Pernell Fitzgerald MD Diagnosis: 1-2 tabs daily as needed, AFTER SURGERY Last Documented On 3 8:44AM By Pernell Fitzgerald [facility] Ondansetron HCl 4 MG Oral Tablet 06/28/2023 - 07/12/20 Provider: Pernell Fitzgerald MD Diagnosis: 1-2 p o q 6-8h as needed for nausea Last Documented On 3 8:44AM By Pernell Fitzgerald ; [facility] Mupirocin 2% External Ointment 06/23/2023 - 06/28/2023 Provider: Pernell Fitzgerald MD Diagnosis: as directed Apply to each no stril with a q tip once a day for 5 days prior to surgery Last Documented On 3 3:24PM By Laurie Pablo ; [facility] Mupirocin 2% External Ointment 06/08/2023 - 06/13/2023 Provider: Pernell Fitzgerald MD Diagnosis: as directed Apply to each no stril with a q tip once a day for 5 days prior to surgery Last Documented On 3 1:53PM By Laurie Pablo ; [facility] Cefadroxil 500 MG Oral Capsule 09/17/2021 - 09/20/2021 Provider: Pernell Fitzgerald MD Diagnosis: twice a day Last Documented On 1 2:48PM By Haley Allen ; [facility] Colace 100 MG Oral Capsule 09/17/2021 - 10/17/2021 Pro vider: Pernell Fitzgerald MD Diagnosis: 1-2 tablets daily, as needed, AFTER SURGERY Last Documented On 1 2:48PM By Haley Allen ; [facility] Zofran 4 MG Oral Tablet 09/17/2021 - 10/17/2021 Provid er: Pernell Fitzgerald MD Diagnosis: take 1 tablet every 6-8hrs for nausea, AFTER ZAIDA ANA Last Documented On 1 2:49PM By Haley Allen ; [facility] oxyCODONE HCl 5 MG Oral Tablet 09/17/2021 - 10/17/2021 Provider: Pernell Fitzgerald MD Diagnosis: take 1-2 tablets every 4-6hrs for post op pain Last Documented On 1 3:02PM By Pernell Fitzgerald ; [facility] Ultram 50 MG Oral Tablet 09/17/2021 - 10/17/2021 Provi fausto: Pernell Fitzgerald MD Diagnosis: 1-2 tablets every 6-8 hours for breakthrough pos t op pain Last Documented On 1 3:02PM By Pernell Fitzgerald ; [facility] Aspirin Adult Low Strength 8 1 MG Oral Tablet Delayed Release 09/17/2021 - 11/01/2021 Provider: Pernell Fitzgerald MD Diagnosis: twice a day Last Documented On 1 2:47PM By Haley Allen ; [facility] Acetaminophen 500 MG Oral Tablet 09/17/2021 - 10/17/20 21 Provider: Pernell Fitzgerald MD Diagnosis: take 2 tablets 3 times daily, AFTER SURGERY Last Documented On 1 2:47PM By Haley Allen ; [facility] oxyCODONE HCl 5 MG Oral Tablet 09/14/2021 - 10/14/2021 Provider: Pernell Fitzgerald MD Diagnosis: take 1-2 tablets every 4-6hrs for post op pain Last Documented On 1 4:52PM By Pernell Fitzgerald ; [facility] Ultram 50 MG Oral Tablet 07/31/2021 - 08/30/2021 Provi fausto: Pernell Fitzgerald MD Diagnosis: 1-2 po q6h prn pain Last Documented On 1 2:44PM By Pernell Fitzgerald ; [facility] Ultram 50 MG Oral Tablet 06/02/2021 - 07/02/2021 Provi fausto: Pernell Fitzgerald MD Diagnosis: 1-2 po q6h prn pain Last Documented On 1 12:40PM By Pernell Fitzgerald ; [facility] Medications Administered Includes: Administered Medications from this encounter No Administered Medications Recorded Vital Signs Includes: Vital Signs from this encounter Vital Name 12/27/2023 09:42A Height (in) 68 Weight (lb) 162 Body Mass Index 24.6 Body Surface Area 1.9 Pain Level 4 Note: Last Documented: On 12/27/2023 9:42AM ; [facility] Results Includes: Results discussed during this encounter [...] Last Documented On 4 8:48AM ; [facility] No recent change in diet 12/27/2023 Last Documented On 4 8:48AM ; [facility] Not a current smoker. 12/27/2023 Last Documented On 4 8:48AM ; [facility] Caffeine use 12/21/2022 Last Documented On 4 9:22AM ; [facility] Not exercising regularly 12/21/2022 Last Documented On 4 9:22AM ; [facility] Not using alcohol 03/27/2021 Last Documented On 4 9:22AM ; [facility] Not using drugs 03/27/2021 Last Documented On 4 9:22AM ; [facility] Smoking Status Unknown Procedures and Surgical History Includes: Procedures from this encounter Procedures Code Diagnosis Performing Provider Service L ocation Service Date use of tobacco assessment performed 1000F Last Documented On 4 9:22AM ; [facility] patient screened for future fall risk: documentation of any fall with injury in past year 1100F Last Documented On 4 9:22AM ; [facility] review of medications documented 1160F Last Documented On 4 9:22AM ; [facility] Surgical History Last Updated History of History of Gallbladder 2022 Last Documented On 4 9:22AM ; [facility] History of hysterectomy 12/21/2022 Last Documented On 4 9:22AM ; [facility] History of total hip replacement 023 Last Documented On 4 9:22AM ; [facility] Medical History Includes: Medical History addressed during this encounter Description Last Updated History of arthritis 12/21/2022 Last Documented On 4 9:22AM ; [facility] History of depression 12/21/2022 Last Documented On 4 9:22AM ; [facility] History of heart disease 12/21/2022 Last Documented On 4 9:22AM ; [facility] History of Heartburn / Acid Reflux 12/21 Last Documented On 4 9:22AM ; [facility] History of Hypertension 12/21/2022 Last Documented On 4 9:22AM ; [facility] History of Irregular Heartbeat 3 Last Documented On 4 9:22AM ; [facility] Recent immunization for flu 07/31/2021 1 12/28/2020 Last Documented On 4 9:22AM ; [facility] No recent immunization for pneumococcal pneumonia 03/27/2021 Last Documented On 4 9:22AM ; [facility] Family History Includes: Family History addressed during this encounter Description Last Updated Diabetes mellitus 12/21/2022 Last Documented On 4 9:22AM ; [facility] Family history of heart disease 12/21/19 23 Last Documented On 4 9:22AM ; [facility] Family history of osteoporosis 3 Last Documented On 4 9:22AM ; [facility] Family history of rheumatoid arthritis 0 12/21/2022 Last Documented On 4 9:22AM ; [facility] Review of Systems Includes: Review of Systems [...] Last Documented On 4 10:44AM ; [facility] Note: hyper Encounters Encounter Provider Location Date Check-In Time Check- Out Time Diagnosis Follow Up Pernell Fitzgerald MD [facility] 4 9:13AM 10:08AM Insurance Includes: Active Insurance Policies Plan Name Member ID Group # Subscriber Relationship Effect elena Dates 1 - Medicare Part B [facility] [id number] Karina Wilson Self 05/31/2013 - Unknown 2 - [facility] [employer] [id number] Karina Wilson Self 10/31/19 21 - Unknown Clinical Notes Includes: Clinical Notes from this encounter * Progress note Date Encounter Last Documented by 12/27/2023 Follow Up Last documented on 12/28/2023; 8:48 AM, Pernell Fitzgerald MD; [facility] Active Problems & Conditions - [...] Care Team - HIRAM PIERRE MD - [employer] - Luh Sesay PA-C
--- OUTSIDE RECORDS SUMMARY | 2025-02-24 17:47 | XMS_ITS | Clinical Summary ---
Author Organization [facility] [place] Address [address] [place] [address] Phone Care Team Providers Care Casino Gaming Inspector Name Role Phone Lázaro ISIDRO, Luh Unavailable [phone] Lia FIGUEREDO, Pernell Unavailable [phone] IGNACIO FIGUEREDO, HIRAM Unavailable [phone] Reason for Visit and Chief Complaint The Chief Complaint is: Right hip pov Problems Includes: Problems addressed during this encounter and other active Problems All Visits Onset Date Resolved Date Provider Condition S tatus Joint Pain in the Left Hip 03/27/2021 Pernell marshall MD Active Last Documented On 8:21AM ; [facility] Plan of Treatment Fall Risk Assessment: [...] - Last Documented On 07/27/2023 12:15PM ; [facility] Patient was seen by myself Robert Hayward PA-C. Patient will follow up [address] Fitzgerald patient would like to try outpatient physical therapy we will set her up to do this and then see her back with him in 3 weeks. - Last Documented On 07/27/2023 12:15PM ; [facility] Assessments Includes: Assessments from this encounter Findings Left total hip revision 07/01/2023 - Last Documented On 07/27/2023 12:15PM ; [facility] [place] Medical Equipment - Implanted Devices Includes: Current Devices No Medical Equipment Recorded Medications Includes: Medications discussed during this encounter and other current Medications Current Medications (continue as prescribed) Ondansetron 4 MG Oral Tablet Disintegrating 12/12/2023 Provider: Diagnosis: Last Documented On 4 9:22AM By Albania Darby ; [facility] [place] Sotalol HCl 80 MG Oral Tablet 12/07/2023 Provider: HIRAM PIERRE MD Diagnosis: Last Documented On 4 9:22AM By Albania Darby ; [facility] [place] Levothyroxine Sodium 25 MCG Oral Tablet 12/02/2023 Coni mitchell: HIRAM PIERRE MD Diagnosis: Last Documented On 4 9:22AM By Albania Darby ; [facility] [place] Valsartan-hydroCHLOROthiazid e 320-12.5 MG Oral Tablet 12/02/2023 Provider: HIRAM PIERRE MD Diagnosis: Last Documented On 4 9:22AM By Albania Darby ; [facility] [place] Venlafaxine HCl ER 150 MG Or al Capsule Extended Release 24 Hour 12/02/2023 Provider: HIRAM PIERRE MD Diagnosis: Last Documented On 4 9:22AM By Albania Darby ; [facility] [place] Amoxicillin-Pot Clavulanate 875-125 MG Oral Tablet Provider: Diagnosis: Last Documented On 4 9:22AM By Albania Darby ; [facility] [place] Cetirizine HCl 10 MG Oral Capsule 03/27/2021 Provide r: Diagnosis: Last Documented On 1 9:12AM By Ami Dickerson ; [facility] [place] Tetracycline HCl 500 MG Oral Capsule 01/22/2021 Prov ider: CARLA RUIZ II, MD Diagnosis: Last Documented On 1 8:45AM By Pam Valencia ; [facility] [place] Omeprazole 20 MG Oral Capsul e Delayed Release 01/22/2021 Provider: CARLA RUIZ II, MD Diagnosis: Last Documented On 1 8:45AM By Pam Valencia ; [facility] [place] metroNIDAZOLE 250 MG Oral Tablet 01/22/2021 Provider : CARLA RUIZ II, MD Diagnosis: Last Documented On 1 8:45AM By Pam Valencia ; [facility] FeroSul 325 (65 Fe) MG Oral Tablet 12/22/2020 Provid er: Diagnosis: Last Documented On 1 8:45AM By Pam Valencia ; [facility] Xarelto 20 MG Oral Tablet 12/08/2020 Provider: Diagnosis: Last Documented On 1 8:45AM By Pam Valencia ; [facility] Donepezil HCl 10 MG Oral Tablet 11/13/2020 Provider: TONY CARRERA MD (N) Diagnosis: Last Documented On 1 8:45AM By Pam Valencia ; [facility] Meloxicam 15 MG Oral Tablet 09/06/2020 Provider: Diagnosis: Last Documented On 1 9:12AM By Ami Dickerson ; [facility] [place] Atorvastatin Calcium 10 MG Oral Tablet 06/06/2020 Pr ovider: Diagnosis: Last Documented On 1 9:12AM By Ami Dickerson ; [facility] [place] Past Medications on file oxyCODONE HCl 5 MG Oral Tablet 06/28/2023 - 07/03/2023 Provider: Pernell Fitzgerald MD Diagnosis: 1-2 p o q 6-8h for post op pain Last Documented On 3 8:44AM By Pernell Fitzgerald ; [facility] [place] Meloxicam 15 MG Oral Tablet 06/28/2023 - 07/28/2023 Pr ovider: Pernell Fitzgerald MD Diagnosis: once a day Last Documented On 3 8:44AM By Pernell Fitzgerald ; [facility] [place] Cefadroxil 500 MG Oral Capsule 06/28/2023 - 07/01/2023 Provider: Pernell Fitzgerald MD Diagnosis: twice a day Last Documented On 3 8:44AM By Pernell Fitzgerald ; [facility] [place] traMADol HCl 50 MG Oral Tablet 06/28/2023 - 07/13/2023 Provider: Pernell Fitzgerald MD Diagnosis: 1-2 p o q 6-8h for breakthrough post op pain Last Documented On 3 8:44AM By Pernell Fitzgerald ; [facility] [place] Acetaminophen 500 MG Oral Tablet 06/28/2023 - 07/28/20 Provider: Pernell Fitzgerald MD Diagnosis: 2 three times a day , AFTER SURGERY Last Documented On 3 8:29AM By Pernell Fitzgerald ; [facility] [place] Colace 100 MG Oral Capsule 06/28/2023 - 07/28/2023 Pro vider: Pernell Fitzgerald MD Diagnosis: 1-2 tabs daily as needed, AFTER SURGERY Last Documented On 3 8:44AM By Pernell Fitzgerald ; [facility] [place] Ondansetron HCl 4 MG Oral Tablet 06/28/2023 - 07/12/20 Provider: Pernell Fitzgerald MD Diagnosis: 1-2 p o q 6-8h as needed for nausea Last Documented On 3 8:44AM By Pernell Fitzgerald ; [facility] [place] Mupirocin 2% External Ointment 06/23/2023 - 06/28/2023 Provider: Pernell Fitzgerald MD Diagnosis: as directed Apply to each no stril with a q tip once a day for 5 days prior to surgery Last Documented On 3 3:24PM By Laurie Pablo ; [facility] [place] Mupirocin 2% External Ointment 06/08/2023 - 06/13/2023 Provider: Pernell Fitzgerald MD Diagnosis: as directed Apply to each no stril with a q tip once a day for 5 days prior to surgery Last Documented On 3 1:53PM By Laurie Pablo ; [facility] [place] Cefadroxil 500 MG Oral Capsule 09/17/2021 - 09/20/2021 Provider: Pernell Fitzgerald MD Diagnosis: twice a day Last Documented On 1 2:48PM By Haley Allen ; [facility] [place] Colace 100 MG Oral Capsule 09/17/2021 - 10/17/2021 Pro vider: Pernell Fitzgerald MD Diagnosis: 1-2 tablets daily, as needed, AFTER SURGERY Last Documented On 1 2:48PM By Haley Allen ; [facility] [place] Zofran 4 MG Oral Tablet 09/17/2021 - 10/17/2021 Provid er: Pernell Fitzgerald MD Diagnosis: take 1 tablet every 6-8hrs for nausea, AFTER ZAIDA ANA Last Documented On 1 2:49PM By Haley Allen ; [facility] oxyCODONE HCl 5 MG Oral Tablet 09/17/2021 - 10/17/2021 Provider: Pernell Fitzgerald MD Diagnosis: take 1-2 tablets every 4-6hrs for post op pain Last Documented On 1 3:02PM By Pernell Fitzgerald ; [facility] Ultram 50 MG Oral Tablet 09/17/2021 - 10/17/2021 Provi fausto: Pernell Fitzgerald MD Diagnosis: 1-2 tablets every 6-8 hours for breakthrough pos t op pain Last Documented On 1 3:02PM By Pernell Fitzgerald ; [facility] [place] Aspirin Adult Low Strength 8 1 MG Oral Tablet Delayed Release 09/17/2021 - 11/01/2021 Provider: Pernell Fitzgerald MD Diagnosis: twice a day Last Documented On 1 2:47PM By Haley Allen ; [facility] Acetaminophen 500 MG Oral Tablet 09/17/2021 - 10/17/20 21 Provider: Pernell Fitzgerald MD Diagnosis: take 2 tablets 3 times daily, AFTER SURGERY Last Documented On 1 2:47PM By Haley Allen ; [facility] oxyCODONE HCl 5 MG Oral Tablet 09/14/2021 - 10/14/2021 Provider: Pernell Fitzgerald MD Diagnosis: take 1-2 tablets every 4-6hrs for post op pain Last Documented On 1 4:52PM By Pernell Fitzgerald ; [facility] Ultram 50 MG Oral Tablet 07/31/2021 - 08/30/2021 Provi fausto: Pernell Fitzgerald MD Diagnosis: 1-2 po q6h prn pain Last Documented On 1 2:44PM By Pernell Fitzgerald ; [facility] Ultram 50 MG Oral Tablet 06/02/2021 - 07/02/2021 Provi fausto: Pernell Fitzgerald MD Diagnosis: 1-2 po q6h prn pain Last Documented On 1 12:40PM By Pernell Fitzgerald ; [facility] [place] Medications Administered Includes: Administered Medications from this [...] 12/27/2023 Last Documented On 3 2:26PM ; [facility] [place] No recent change in diet 12/27/2023 Last Documented On 3 2:26PM ; [facility] [place] Not a current smoker. 12/27/2023 Last Documented On 3 2:26PM ; [facility] Caffeine use 12/21/2022 Last Documented On 3 2:26PM ; [facility] [place] Not exercising regularly 12/21/2022 Last Documented On 3 2:26PM ; [facility] Non-smoker 03/27/2021 Last Documented On 3 2:26PM ; [facility] [place] No recent change in diet 03/27/2021 Last Documented On 3 2:26PM ; [facility] [place] Not a current smoker. 03/27/2021 Last Documented On 3 2:26PM ; [facility] Not using alcohol 03/27/2021 Last Documented On 3 2:26PM ; [facility] [place] Not using drugs 03/27/2021 Last Documented On 3 2:26PM ; [facility] [place] Smoking Status Unknown Procedures and Surgical History Includes: Procedures from this encounter Procedures Code Diagnosis Performing Provider Service L ocation Service Date use of tobacco assessment performed 1000F Last Documented On 3 2:26PM ; [facility] [place] patient screened for future fall risk: documentation of any fall with injury in past year 1100F Last Documented On 3 2:26PM ; [facility] [place] review of medications documented 1160F Last Documented On 3 2:26PM ; [facility] [place] Surgical History Last Updated History of History of Gallbladder 2022 Last Documented On 3 2:26PM ; [facility] [place] History of hysterectomy 12/21/2022 Last Documented On 3 2:26PM ; [facility], [place] History of total hip replacement 023 Last Documented On 3 2:26PM ; [facility] [place] Medical History Includes: Medical History addressed during this encounter Description Last Updated History of arthritis 12/21/2022 Last Documented On 3 2:26PM ; [facility] [place] History of depression 12/21/2022 Last Documented On 3 2:26PM ; [facility] [place] History of heart disease 12/21/2022 Last Documented On 3 2:26PM ; [facility] [place] History of Heartburn / Acid Reflux 12/21 Last Documented On 3 2:26PM ; [facility] [place] History of Hypertension 12/21/2022 Last Documented On 3 2:26PM ; [facility] [place] History of Irregular Heartbeat 3 Last Documented On 3 2:26PM ; [facility] [place] Recent immunization for flu 07/31/2021 1 12/28/2020 Last Documented On 3 2:26PM ; [facility] [place] No recent immunization for pneumococcal pneumonia 03/27/2021 Last Documented On 3 2:26PM ; [facility] [place] Family History Includes: Family History addressed during this encounter Description Last Updated Diabetes mellitus 12/21/2022 Last Documented On 3 2:26PM ; [facility] Family history of heart disease 12/21/19 23 Last Documented On 3 2:26PM ; [facility] Family history of osteoporosis 3 Last Documented On 3 2:26PM ; [facility] Family history of rheumatoid arthritis 0 12/21/2022 Last Documented On 3 2:26PM ; [facility] Review of Systems Includes: Review of [...] Active Last Documented On 4 10:44AM ; [facility] Note: hyper Encounters Encounter Provider Location Date Check-In Time Check- Out Time Diagnosis Follow Up Robert Hayward PA-C [id number] 1:50PM 3:25PM Insurance Includes: Active Insurance Policies Plan Name Member ID Group # Subscriber Relationship Effect elena Dates 1 - Medicare Part B [facility] [id number] Karina Wilson Self 05/31/2013 - Unknown 2 - [facility] [employer] [id number] Karina Wilson Self 10/31/19 21 - Unknown Clinical Notes Includes: Clinical Notes from this encounter * Progress note Date Encounter Last Documented by 07/26/2023 Follow Up Last documented on 07/27/2023; 12:15 PM, Robert Obando; [facility] [place] Active Problems & Conditions - Joint Pain [...] Care Team - HIRAM PIERRE MD - ENTRY LEVEL PROGRAMMER - Luh Sesay PA-C
--- OUTSIDE RECORDS SUMMARY | 2025-02-24 17:47 | XMS_ITS ---
Care Plan - [facility] Created on: February 24, 2025 Karina Wilson : 1945 Sex: Female Author Organization [facility] Address [address] [place] [address] Phone Care Team Providers Care Diesel Trailer Mechanic Name Role Phone Lázaro ISIDRO, Luh Unavailable [phone] Lia FIGUEREDO, Pernell Unavailable [phone] IGNACIO FIGUEREDO, HIRAM Unavailable [phone]
--- OUTSIDE RECORDS SUMMARY | 2025-02-24 17:47 | XMS_ITS | Clinical Summary ---
Author Organization [facility] Address [address] [place] [address] Phone Care Team Providers Care Global Expansion Sales Director Name Role Phone Lázaro ISIDRO, Luh Unavailable [phone] Lia FIGUEREDO, Pernell Unavailable [phone] IGNACIO FIGUEREDO, HIRAM Unavailable [phone] Reason for Visit and Chief Complaint The Chief Complaint is: left hip pain Problems Includes: Problems addressed during this encounter and other active Problems All Visits Onset Date Resolved Date Provider Condition S tatus Joint Pain in the Left Hip 03/27/2021 Pernell marshall MD Active Last Documented On 8:21AM ; [facility] Plan of Treatment - Patient screened for future fall risk: documentation of any fall with injury in past year - Last Documented On 05/09/2024 3:41PM ; [facility] Fall Risk Assessment: This patient [...] - Last Documented On 05/09/2024 3:41PM ; [facility] Three-view x-ray of the left hip shows good alignment of implants no problems patient will be referred to Neurology for interpretation of her MRI brain results in overall neurologic exam screening exam we will see her back every 5 years for routine surveillance x-rays of the hip or sooner if needed - Last Documented On 05/09/2024 3:41PM ; [facility] Assessments Includes: Assessments from this encounter Findings 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, 2023 - Last Documented On 05/09/2024 3:41PM ; [facility] Medical Equipment - Implanted Devices Includes: Current Devices No Medical Equipment Recorded Medications Includes: Medications discussed during this encounter and other current Medications Current Medications (continue as prescribed) Ondansetron 4 MG Oral Tablet Disintegrating 12/12/2023 Provider: Diagnosis: Last Documented On 4 9:22AM By Albania Darby ; [facility] Sotalol HCl 80 MG Oral Tablet 12/07/2023 Provider: HIRAM PIERRE MD Diagnosis: Last Documented On 4 9:22AM By Albania Darby ; [facility] Levothyroxine Sodium 25 MCG Oral Tablet 12/02/2023 Coni mitchell: HIRAM PIERRE MD Diagnosis: Last Documented On 4 9:22AM By Albania Darby ; [facility] Valsartan-hydroCHLOROthiazid e 320-12.5 MG Oral Tablet 12/02/2023 Provider: HIRAM PIERRE MD Diagnosis: Last Documented On 4 9:22AM By Albania Darby ; [facility] Venlafaxine HCl ER 150 MG Or al Capsule Extended Release 24 Hour 12/02/2023 Provider: HIRAM PIERRE MD Diagnosis: Last Documented On 4 9:22AM By Albania Darby ; [facility] Amoxicillin-Pot Clavulanate 875-125 MG Oral Tablet Provider: Diagnosis: Last Documented On 4 9:22AM By Albania Darby ; [facility] Cetirizine HCl 10 MG Oral Capsule 03/27/2021 Provide r: Diagnosis: Last Documented On 1 9:12AM By Ami Dickerson ; [facility] Tetracycline HCl 500 MG Oral Capsule 01/22/2021 Prov ider: CARLA RUIZ II, MD Diagnosis: Last Documented On 1 8:45AM By Pam Valencia ; [facility] Omeprazole 20 MG Oral Capsul e Delayed Release 01/22/2021 Provider: CARLA RUIZ II, MD Diagnosis: Last Documented On 1 8:45AM By Pam Valencia ; [facility] metroNIDAZOLE 250 MG Oral Tablet 01/22/2021 Provider : CARLA RUIZ II, MD Diagnosis: Last Documented On 1 8:45AM By Pam Valencia ; [facility] FeroSul 325 (65 Fe) MG Oral Tablet 12/22/2020 Provid er: Diagnosis: Last Documented On 1 8:45AM By Pam Valencia ; [facility] Xarelto 20 MG Oral Tablet 12/08/2020 Provider: Diagnosis: Last Documented On 1 8:45AM By Pam Valencia ; [facility] Donepezil HCl 10 MG Oral Tablet 11/13/2020 Provider: TONY CARRERA MD (N) Diagnosis: Last Documented On 1 8:45AM By Pam Valencia ; [facility] Meloxicam 15 MG Oral Tablet 09/06/2020 Provider: Diagnosis: Last Documented On 1 9:12AM By Ami Dickerson ; [facility] Atorvastatin Calcium 10 MG Oral Tablet 06/06/2020 Pr ovider: Diagnosis: Last Documented On 1 9:12AM By Ami Dickerson ; [facility] Past Medications on file oxyCODONE HCl 5 MG Oral Tablet 06/28/2023 - 07/03/2023 Provider: Pernell Fitzgerald MD Diagnosis: 1-2 p o q 6-8h for post op pain Last Documented On 3 8:44AM By Pernell Fitzgerald ; [facility] Meloxicam 15 MG Oral Tablet 06/28/2023 - 07/28/2023 Pr ovider: Pernell Fitzgerald MD Diagnosis: once a day Last Documented On 3 8:44AM By Pernell Fitzgerald ; [facility] Cefadroxil 500 MG Oral Capsule 06/28/2023 - 07/01/2023 Provider: Pernell Fitzgerald MD Diagnosis: twice a day Last Documented On 3 8:44AM By Pernell Fitzgerald ; [facility] traMADol HCl 50 MG Oral Tablet 06/28/2023 - 07/13/2023 Provider: Pernell Fitzgerald MD Diagnosis: 1-2 p o q 6-8h for breakthrough post op pain Last Documented On 3 8:44AM By Pernell Fitzgerald ; [facility] Acetaminophen 500 MG Oral Tablet 06/28/2023 - 07/28/20 23 Provider: Pernell Fitzgerald MD Diagnosis: 2 three times a day , AFTER SURGERY Last Documented On 3 8:29AM By Pernell Fitzgerald ; [facility] Colace 100 MG Oral Capsule 06/28/2023 - 07/28/2023 Pro vider: Pernell Fitzgerald MD Diagnosis: 1-2 tabs daily as needed, AFTER SURGERY Last Documented On 3 8:44AM By Pernell Fitzgerald ; [facility] Ondansetron HCl 4 MG Oral Tablet 06/28/2023 - 07/12/20 23 Provider: Pernell Fitzgerald MD Diagnosis: 1-2 p o q 6-8h as needed for nausea Last Documented On 3 8:44AM By Pernell Fitzgerald ; [facility] Mupirocin 2% External Ointment 06/23/2023 - 06/28/2023 Provider: Pernell Fitzgerald MD Diagnosis: as directed Apply to each no stril with a q tip once a day for 5 days prior to surgery Last Documented On 3 3:24PM By Laurie Pablo ; [facility] Mupirocin 2% External Ointment 06/08/2023 - 06/13/2023 Provider: Pernell Fitzgerald MD Diagnosis: as directed Apply to each no stril with a q tip once a day for 5 days prior to surgery Last Documented On 3 1:53PM By Laurie Pablo ; [facility] Cefadroxil 500 MG Oral Capsule 09/17/2021 - 09/20/2021 Provider: Pernell Fitzgerald MD Diagnosis: twice a day Last Documented On 1 2:48PM By Haley Allen ; [facility] Colace 100 MG Oral Capsule 09/17/2021 - 10/17/2021 Pro vider: Pernell Fitzgerald MD Diagnosis: 1-2 tablets daily, as needed, AFTER SURGERY Last Documented On 1 2:48PM By Haley Allen ; [facility] Zofran 4 MG Oral Tablet 09/17/2021 - 10/17/2021 Provid er: Pernell Fitzgerald MD Diagnosis: take 1 tablet every 6-8hrs for nausea, AFTER ZAIDA ANA Last Documented On 1 2:49PM By Haley Allen ; [facility] oxyCODONE HCl 5 MG Oral Tablet 09/17/2021 - 10/17/2021 Provider: Pernell Fitzgerald MD Diagnosis: take 1-2 tablets every 4-6hrs for post op pain Last Documented On 1 3:02PM By Pernell Fitzgerald ; [facility] Ultram 50 MG Oral Tablet 09/17/2021 - 10/17/2021 Provi fausto: Pernell Fitzgerald MD Diagnosis: 1-2 tablets every 6-8 hours for breakthrough pos t op pain Last Documented On 1 3:02PM By Pernell Fitzgerald ; [facility] Aspirin Adult Low Strength 8 1 MG Oral Tablet Delayed Release 09/17/2021 - 11/01/2021 Provider: Pernell Fitzgerald MD Diagnosis: twice a day Last Documented On 1 2:47PM By Haley Allen ; [facility] Acetaminophen 500 MG Oral Tablet 09/17/2021 - 10/17/20 21 Provider: Pernell Fitzgerald MD Diagnosis: take 2 tablets 3 times daily, AFTER SURGERY Last Documented On 1 2:47PM By Haley Allen ; [facility] oxyCODONE HCl 5 MG Oral Tablet 09/14/2021 - 10/14/2021 Provider: Pernell Fitzgerald MD Diagnosis: take 1-2 tablets every 4-6hrs for post op pain Last Documented On 1 4:52PM By Pernell Fitzgerald ; [facility] Ultram 50 MG Oral [...] 03/27/2021 Last Documented On 4 10:44AM ; [facility] Smoking Status Unknown Procedures and Surgical History Includes: Procedures from this encounter Procedures Code Diagnosis Performing Provider Service Location Service Date X-RAY EXAM OF KNEE 1 OR 2 VIEWS (RIGHT) 69914 Unilateral primary osteoarthritis, right knee Pernell Fitzgerald MD [facility] 05/08/2024 Last Documented On 4 4:26PM ; [facility] use of tobacco assessment performed 1000F Last Documented On 4 10:44AM ; [facility] patient screened for future fall risk: documentation of any fall with injury in past year 1100F Last Documented On 4 10:44AM ; [facility] review of medications documented 1160F Last Documented On 4 10:44AM ; [facility] Surgical History Last Updated History of History of Gallbladder 2022 Last Documented On 4 10:44AM ; [facility] History of hysterectomy 12/21/2022 Last Documented On 4 10:44AM ; [facility] History of total hip replacement 023 Last Documented On 4 10:44AM ; [facility] Medical History Includes: Medical History addressed during this encounter Description Last Updated History of arthritis 12/21/2022 Last Documented On 4 10:44AM ; [facility] History of depression 12/21/2022 Last Documented On 4 10:44AM ; [facility] History of heart disease 12/21/2022 Last Documented On 4 10:44AM ; [facility] History of Heartburn / Acid Reflux 12/21 Last Documented On 4 10:44AM ; [facility] History of Hypertension 12/21/2022 Last Documented On 4 10:44AM ; [facility] History of Irregular Heartbeat 3 Last Documented On 4 10:44AM ; [facility] Recent immunization for flu 07/31/2021 1 12/28/2020 Last Documented On 4 10:44AM ; [facility] No recent immunization for pneumococcal pneumonia 03/27/2021 Last Documented On 4 10:44AM ; [facility] Family History Includes: Family History addressed during this encounter Description Last Updated Diabetes mellitus 12/21/2022 Last Documented On 4 10:44AM ; [facility] Family history of heart disease 12/21/19 23 Last Documented On 4 10:44AM ; [facility] Family history of osteoporosis 3 Last Documented On 4 10:44AM ; [facility] Family history of rheumatoid arthritis 0 12/21/2022 Last Documented On 4 10:44AM ; [facility] Review of Systems Includes: Review [...] Active Last Documented On 4 10:44AM ; [facility] Note: hyper Encounters Encounter Provider Location Date Check-In Time Check- Out Time Diagnosis Follow Up Pernell Fitzgerald MD [facility] [place] 4 10:03AM 11:14AM Insurance Includes: Active Insurance Policies Plan Name Member ID Group # Subscriber Relationship Effect elena Dates 1 - Medicare Part B [facility] [id number] Karina Wilson Self 05/31/2013 - Unknown 2 - [facility] [employer] [id number] Karina Wilson Self 10/31/19 21 - Unknown Clinical Notes Includes: Clinical Notes from this encounter * Progress note Date Encounter Last Documented by 05/08/2024 Follow Up Last documented on 05/09/2024; 3:41 PM, Pernell Fitzgerald MD; [facility] Active Problems & Conditions - [...] Care Team - HIRAM PIERRE MD - FIELD EVIDENCE TECHNICIAN - Luh Sesay PA-C
--- OUTSIDE RECORDS SUMMARY | 2025-02-24 17:47 | XMS_ITS ---
Author Organization [facility] , [facility] Address [address] [place] [address] Phone Care Team Providers Care Analytic Manager Name Role Phone Lázaro ISIDRO, Luh Unavailable [phone] Lia FIGUEREDO, Pernell Unavailable [phone] IGNACIO FIGUEREDO, HIRAM Unavailable [phone] [...] Last Documented On 1 8:21AM ; [facility], [facility] Plan of Treatment Findings Encounter Date Patient screened for future fall risk: documentation of any fall with injury in past year Follow Up with Pernell Fitzgerald MD 05/08/2024 Last Documented On 4 3:41PM ; [facility], [facility] Instructions to patient Lose weight Last Documented On 3 9:58AM ; [facility], [facility] Lose weight Last Documented On 3 9:52AM ; [facility], [facility] Lose weight Last Documented On 2 9:10AM ; [facility], [facility] Assessments Includes: Assessments for all patient encounters No Assessments Recorded Instructions Includes: Instructions for all patient encounters Instructions to patient Lose weight Last Documented On 3 9:58AM ; [facility], [facility] Lose weight Last Documented On 3 9:52AM ; [facility], [facility] Lose weight Last Documented On 2 9:10AM ; [facility], [facility] Medical Equipment - Implanted Devices Includes: Current and historical Devices No Medical Equipment Recorded Medications Includes: Current and historical Medications Current Medications (continue as prescribed) Ondansetron 4 MG Oral Tablet Disintegrating 12/12/2023 Provider: Diagnosis: Last Documented On 4 9:22AM By Albania Darby ; [facility], [facility] Sotalol HCl 80 MG Oral Tablet 12/07/2023 Provider: HIRAM PIERRE MD Diagnosis: Last Documented On 4 9:22AM By Albania Darby ; [facility], [facility] Levothyroxine Sodium 25 MCG Oral Tablet 12/02/2023 Coin mitchell: HIRAM PIERRE MD Diagnosis: Last Documented On 4 9:22AM By Albania Darby ; [facility] Valsartan-hydroCHLOROthiazid e 320-12.5 MG Oral Tablet 12/02/2023 Provider: HIRAM PIERRE MD Diagnosis: Last Documented On 4 9:22AM By Albania Darby ; [facility], [facility] Venlafaxine HCl ER 150 MG Or al Capsule Extended Release 24 Hour 12/02/2023 Provider: HIRAM PIERRE MD Diagnosis: Last Documented On 4 9:22AM By Albania Darby ; [facility], [facility] Amoxicillin-Pot Clavulanate 875-125 MG Oral Tablet Provider: Diagnosis: Last Documented On 4 9:22AM By Albania Darby ; [facility], [facility] Cetirizine HCl 10 MG Oral Capsule 03/27/2021 Provide r: Diagnosis: Last Documented On 1 9:12AM By Ami Dickerson ; [facility], [facility] Tetracycline HCl 500 MG Oral Capsule 01/22/2021 Prov ider: CARLA RUIZ II, MD Diagnosis: Last Documented On 1 8:45AM By Pam Valencia ; [facility], [facility] Omeprazole 20 MG Oral Capsul e Delayed Release 01/22/2021 Provider: CARLA RUIZ II, MD Diagnosis: Last Documented On 1 8:45AM By Pam Valencia ; [facility] metroNIDAZOLE 250 MG Oral Tablet 01/22/2021 Provider : CARLA RUIZ II, MD Diagnosis: Last Documented On 1 8:45AM By Pam Valencia ; [facility] FeroSul 325 (65 Fe) MG Oral Tablet 12/22/2020 Provid er: Diagnosis: Last Documented On 1 8:45AM By Pam Valencia ; [facility], [facility] Xarelto 20 MG Oral Tablet 12/08/2020 Provider: Diagnosis: Last Documented On 1 8:45AM By Pam Valencia ; [facility], [facility] Donepezil HCl 10 MG Oral Tablet 11/13/2020 Provider: TONY CARRERA MD (N) Diagnosis: Last Documented On 1 8:45AM By Pam Valencia ; [facility], [facility] Meloxicam 15 MG Oral Tablet 09/06/2020 Provider: Diagnosis: Last Documented On 1 9:12AM By Ami Dickerson ; [facility], [facility] Atorvastatin Calcium 10 MG Oral Tablet 06/06/2020 Pr ovider: Diagnosis: Last Documented On 1 9:12AM By Ami Dickerson ; [facility], [facility] Past Medications on file oxyCODONE HCl 5 MG Oral Tablet 06/28/2023 - 07/03/2023 Provider: Pernell Fitzgerald MD Diagnosis: 1-2 p o q 6-8h for post op pain Last Documented On 3 8:44AM By Pernell Fitzgerald ; [facility], [facility] Meloxicam 15 MG Oral Tablet 06/28/2023 - 07/28/2023 Pr ovider: Pernell Fitzgerald MD Diagnosis: once a day Last Documented On 3 8:44AM By Pernell Fitzgerald ; [facility], [facility] Cefadroxil 500 MG Oral Capsule 06/28/2023 - 07/01/2023 Provider: Pernell Fitzgerald MD Diagnosis: twice a day Last Documented On 3 8:44AM By Pernell Fitzgerald ; [facility], [facility] traMADol HCl 50 MG Oral Tablet 06/28/2023 - 07/13/2023 Provider: Pernell Fitzgerald MD Diagnosis: 1-2 p o q 6-8h for breakthrough post op pain Last Documented On 3 8:44AM By Pernell Fitzgerald ; [facility], [facility] Acetaminophen 500 MG Oral Tablet 06/28/2023 - 07/28/20 23 Provider: Pernell Fitzgerald MD Diagnosis: 2 three times a day , AFTER SURGERY Last Documented On 3 8:29AM By Pernell Fitzgerald ; [facility], [facility] Colace 100 MG Oral Capsule 06/28/2023 - 07/28/2023 Pro vider: Pernell Fitzgerald MD Diagnosis: 1-2 tabs daily as needed, AFTER SURGERY Last Documented On 3 8:44AM By Pernell Fitzgerald ; [facility], [facility] Ondansetron HCl 4 MG Oral Tablet 06/28/2023 - 07/12/20 Provider: Pernell Fitzgerald MD Diagnosis: 1-2 p o q 6-8h as needed for nausea Last Documented On 3 8:44AM By Pernell Fitzgerald ; [facility], [facility] Mupirocin 2% External Ointment 06/23/2023 - 06/28/2023 Provider: Pernell Fitzgerald MD Diagnosis: as directed Apply to each no stril with a q tip once a day for 5 days prior to surgery Last Documented On 3 3:24PM By Laurie Pablo ; [facility], [facility] Mupirocin 2% External Ointment 06/08/2023 - 06/13/2023 Provider: Pernell Fitzgerald MD Diagnosis: as directed Apply to each no stril with a q tip once a day for 5 days prior to surgery Last Documented On 3 1:53PM By Laurie Pablo ; [facility], [facility] Cefadroxil 500 MG Oral Capsule 09/17/2021 - 09/20/2021 Provider: Pernell Fitzgerald MD Diagnosis: twice a day Last Documented On 1 2:48PM By Haley Allne ; [facility] Colace 100 MG Oral Capsule 09/17/2021 - 10/17/2021 Pro vider: Pernell Fitzgerald MD Diagnosis: 1-2 tablets daily, as needed, AFTER SURGERY Last Documented On 1 2:48PM By Haley Allen ; [facility] Zofran 4 MG Oral Tablet 09/17/2021 - 10/17/2021 Provid er: Pernell Fitzgerald MD Diagnosis: take 1 tablet every 6-8hrs for nausea, AFTER ZAIDA ANA Last Documented On 1 2:49PM By Haley Allen ; [facility] oxyCODONE HCl 5 MG Oral Tablet 09/17/2021 - 10/17/2021 Provider: Pernell Fitzgerald MD Diagnosis: take 1-2 tablets every 4-6hrs for post op pain Last Documented On 1 3:02PM By Pernell Fitzgerald ; [facility] Ultram 50 MG Oral Tablet 09/17/2021 - 10/17/2021 Provi fausto: Pernell Fitzgerald MD Diagnosis: 1-2 tablets every 6-8 hours for breakthrough pos t op pain Last Documented On 1 3:02PM By Pernell Fitzgerald ; [facility] Aspirin Adult Low Strength 8 1 MG Oral Tablet Delayed Release 09/17/2021 - 11/01/2021 Provider: Pernell Fitzgerald MD Diagnosis: twice a day Last Documented On 1 2:47PM By Haley Allen ; [facility] Acetaminophen 500 MG Oral Tablet 09/17/2021 - 10/17/20 21 Provider: Pernell Fitzgerald MD Diagnosis: take 2 tablets 3 times daily, AFTER SURGERY Last Documented On 1 2:47PM By Haley Allen ; [facility] oxyCODONE HCl 5 MG Oral Tablet 09/14/2021 - 10/14/2021 Provider: Pernell Fitzgerald MD Diagnosis: take 1-2 tablets every 4-6hrs for post op pain Last Documented On 1 4:52PM By Pernell Fitzgerald ; [facility] Ultram 50 MG Oral Tablet 07/31/2021 - 08/30/2021 Provi fausto: Pernell Fitzgerald MD Diagnosis: 1-2 po q6h prn pain Last Documented On 1 2:44PM By Pernell Fitzgerald ; [facility] Ultram 50 MG Oral Tablet 06/02/2021 - 07/02/2021 Provi fausto: Pernell Fitzgerald MD Diagnosis: 1-2 po q6h prn pain Last Documented On 1 12:40PM By Pernell Fitzgerald ; [facility] Valsartan-hydroCHLOROthiazid e 320-12.5 MG Oral Tablet 09/09/2020 - 12/27/2023 Provider: Diagnosis: Last Documented On 4 12:06PM By Lissette De ; [facility] Venlafaxine HCl ER 150 MG Or al Capsule Extended Release 24 Hour 09/06/2020 - 12/27/2023 Provider: Diagnosis: Last Documented On 4 12:06PM By Lissette [facility] Sotalol HCl 80 MG Oral Tablet 06/06/2020 - 12/27/2023 Provider: Diagnosis: Last Documented On 4 12:06PM By Lissette De ; [facility] Medications Administered Includes: Administered Medications in patient's chart No Administered Medications Recorded Vital Signs Includes: Vital Signs from 02/25/2024 through 02/24/2025 Vital Name 05/08/2024 10:52A Height (in) 68 Weight (lb) 154.3 Body Mass Index 23.5 Body Surface Area 1.8 Pain Level 8 Last Documented: On 05/08/2024 10:53A M ; [facility] Results Includes: Results from 02/25/2024 through 02/24/2025 No Results Recorded For Specified Dates History of Present Illness History of Present Illness not supported for this document type No History of Present Illness Recorded Social History Description Last Updated Tobacco non-user 12/27/2023 Last Documented On 4 8:48AM ; [facility] No recent change in diet 12/27/2023 Last Documented On 4 8:48AM ; [facility] Not a current smoker. 12/27/2023 Last Documented On 4 8:48AM ; [facility], [facility] Caffeine use 12/21/2022 Last Documented On 3 10:34AM ; [facility], [facility] Not exercising regularly 12/21/2022 Last Documented On 3 10:34AM ; [facility], [facility] Non-smoker 03/27/2021 Last Documented On 1 3:32PM ; [facility], [facility] No recent change in diet 03/27/2021 Last Documented On 1 3:32PM ; [facility], [facility] Not a current smoker. 03/27/2021 Last Documented On 1 3:32PM ; [facility], [facility] Not using alcohol 03/27/2021 Last Documented On 1 3:32PM ; [facility], [facility] Not using drugs 03/27/2021 Last Documented On 1 3:32PM ; [facility], [facility] Smoking Status Unknown Procedures and Surgical History Includes: Procedures from 02/25/2024 through 02/24/2025 Procedures Code Diagnosis Performing Provider Service Location Service Date X-RAY EXAM OF KNEE 1 OR 2 VIEWS (RIGHT) 12094 Unilateral primary osteoarthritis, right knee Pernell Fitzgerald MD [facility] 05/08/2024 Last Documented On 4 4:26PM ; [facility] Surgical History Last Updated History of History of Gallbladder 2022 Last Documented On 3 10:34AM ; [facility], [facility] History of hysterectomy 12/21/2022 Last Documented On 3 10:34AM ; [facility] History of total hip replacement 023 Last Documented On 3 10:34AM ; [facility], [facility] Medical History Includes: Medical History in patient's chart Description Last Updated History of arthritis 12/21/2022 Last Documented On 3 10:34AM ; [facility] History of depression 12/21/2022 Last Documented On 3 10:34AM ; [facility], [facility] History of heart disease 12/21/2022 Last Documented On 3 10:34AM ; [facility] History of Heartburn / Acid Reflux 12/21 Last Documented On 3 10:34AM ; [facility] History of Hypertension 12/21/2022 Last Documented On 3 10:34AM ; [facility] History of Irregular Heartbeat 3 Last Documented On 3 10:34AM ; [facility] Recent immunization for flu 07/31/2021 1 12/28/2020 Last Documented On 2 4:22PM ; [facility] No recent immunization for pneumococcal pneumonia 03/27/2021 Last Documented On 1 3:32PM ; [facility] Family History Includes: Family History in patient's chart Description Last Updated Diabetes mellitus 12/21/2022 Last Documented On 3 10:34AM ; [facility] Family history of heart disease 12/21/19 23 Last Documented On 3 10:34AM ; [facility] Family history of osteoporosis 3 Last Documented On 3 10:34AM ; [facility] Family history of rheumatoid arthritis 0 12/21/2022 Last Documented On 3 10:34AM ; [facility] Review of Systems Review of [...] Active Last Documented On 4 10:44AM ; [facility] Note: hyper Encounters Includes: Encounters from 02/25/2024 through 02/24/2025 Encounter Provider Location Date Check-In Time Check- Out Time Diagnosis Follow Up Pernell Fitzgerald MD [facility] 4 10:03AM 11:14AM Insurance Includes: Active Insurance Policies Plan Name Member ID Group # Subscriber Relationship Effect elena Dates 1 - Medicare Part B [facility] [id number] Karina Wilson Self 05/31/2013 - Unknown 2 - [employer] [facility] [employer] [id number] Karina Wilson Self 10/31/19 21 - Unknown Clinical Notes Includes: Signed Clinical Notes starting from 10/14/2022 * Progress note Date Encounter Last Documented by 05/08/2024 Follow Up Last documented on 05/09/2024; 3:41 PM, Pernell Fitzgerald MD; [facility], [facility] Active Problems & Conditions [...] Care Team - HIRAM PIERRE MD - [employer] - Luh Sesay PA-C
--- OUTSIDE RECORDS SUMMARY | 2025-02-24 17:47 | XMS_ITS | Clinical Summary ---
Author Organization [facility] Address [address] [place] [address] Phone Care Team Providers Care Draw Frame Tender Name Role Phone Lázaro ISIDRO, Luh Unavailable [phone] Lia FIGUEREDO, Pernell Unavailable [phone] IGNACIO FIGUEREDO, HIRAM Unavailable [phone] Reason for Visit and Chief Complaint The Chief Complaint is: left hip pain Problems Includes: Problems addressed during this encounter and other active Problems All Visits Onset Date Resolved Date Provider Condition S tatus Joint Pain in the Left Hip 03/27/2021 Pernell marshall MD Active Last Documented On 8:21AM ; [facility] Plan of Treatment Fall Risk Assessment: [...] - Last Documented On 08/25/2023 1:29PM ; [facility] Patient was seen by myself and Dr. Fitzgerald. Robert Hayward PA-C Patient will follow- up 3 months repeat x-rays of her left hip. - Last Documented On 08/25/2023 1:29PM ; [facility] Assessments Includes: Assessments from this encounter Findings Left total hip revision 07/01/2023 - Last Documented On 08/25/2023 1:29PM ; [facility] Medical Equipment - Implanted Devices Includes: Current Devices No Medical Equipment Recorded Medications Includes: Medications discussed during this encounter and other current Medications Current Medications (continue as prescribed) Ondansetron 4 MG Oral Tablet Disintegrating 12/12/2023 Provider: Diagnosis: Last Documented On 4 9:22AM By Albania Darby ; [facility] Sotalol HCl 80 MG Oral Tablet 12/07/2023 Provider: HIRAM PIERRE MD Diagnosis: Last Documented On 4 9:22AM By Albania Darby ; [facility] Levothyroxine Sodium 25 MCG Oral Tablet 12/02/2023 Coni mitchell: HIRAM PIERRE MD Diagnosis: Last Documented On 4 9:22AM By Albania Darby ; [facility] Valsartan-hydroCHLOROthiazid e 320-12.5 MG Oral Tablet 12/02/2023 Provider: HIRAM PIERRE MD Diagnosis: Last Documented On 4 9:22AM By Albania Darby ; [facility] Venlafaxine HCl ER 150 MG Or al Capsule Extended Release 24 Hour 12/02/2023 Provider: HIRAM PIERRE MD Diagnosis: Last Documented On 4 9:22AM By Albania Darby ; [facility] Amoxicillin-Pot Clavulanate 875-125 MG Oral Tablet Provider: Diagnosis: Last Documented On 4 9:22AM By Albania Darby ; [facility] Cetirizine HCl 10 MG Oral Capsule 03/27/2021 Provide r: Diagnosis: Last Documented On 1 9:12AM By Ami Dickerson ; [facility] Tetracycline HCl 500 MG Oral Capsule 01/22/2021 Prov ider: CARLA RUIZ II, MD Diagnosis: Last Documented On 1 8:45AM By Pam Valencia ; [facility] Omeprazole 20 MG Oral Capsul e Delayed Release 01/22/2021 Provider: CARLA RUIZ II, MD Diagnosis: Last Documented On 1 8:45AM By Pam Valencia ; [facility] metroNIDAZOLE 250 MG Oral Tablet 01/22/2021 Provider : CARLA RUIZ II, MD Diagnosis: Last Documented On 1 8:45AM By Pam Valencia ; [facility] FeroSul 325 (65 Fe) MG Oral Tablet 12/22/2020 Provid er: Diagnosis: Last Documented On 1 8:45AM By Pam Valencia ; [facility] Xarelto 20 MG Oral Tablet 12/08/2020 Provider: Diagnosis: Last Documented On 1 8:45AM By Pam Valencia ; [facility] Donepezil HCl 10 MG Oral Tablet 11/13/2020 Provider: TONY CARRERA MD (N) Diagnosis: Last Documented On 1 8:45AM By Pam Valencia ; [facility] Meloxicam 15 MG Oral Tablet 09/06/2020 Provider: Diagnosis: Last Documented On 1 9:12AM By Ami Dickerson ; [facility] Atorvastatin Calcium 10 MG Oral Tablet 06/06/2020 Pr ovider: Diagnosis: Last Documented On 1 9:12AM By Ami Dickerson ; [facility] Past Medications on file oxyCODONE HCl 5 MG Oral Tablet 06/28/2023 - 07/03/2023 Provider: Pernell Fitzgerald MD Diagnosis: 1-2 p o q 6-8h for post op pain Last Documented On 3 8:44AM By Pernell Fitzgerald ; [facility] Meloxicam 15 MG Oral Tablet 06/28/2023 - 07/28/2023 Pr ovider: Pernell Fitzgerald MD Diagnosis: once a day Last Documented On 3 8:44AM By Pernell Fitzgerald ; [facility] Cefadroxil 500 MG Oral Capsule 06/28/2023 - 07/01/2023 Provider: Pernell Fitzgerald MD Diagnosis: twice a day Last Documented On 3 8:44AM By Pernell Fitzgerald ; [facility] traMADol HCl 50 MG Oral Tablet 06/28/2023 - 07/13/2023 Provider: Pernell Fitzgerald MD Diagnosis: 1-2 p o q 6-8h for breakthrough post op pain Last Documented On 3 8:44AM By Pernell Fitzgerald ; [facility] Acetaminophen 500 MG Oral Tablet 06/28/2023 - 07/28/20 Provider: Pernell Fitzgerald MD Diagnosis: 2 three times a day , AFTER SURGERY Last Documented On 3 8:29AM By Pernell Fitzgerald ; [facility] Colace 100 MG Oral Capsule 06/28/2023 - 07/28/2023 Pro vider: Pernell Fitzgerald MD Diagnosis: 1-2 tabs daily as needed, AFTER SURGERY Last Documented On 3 8:44AM By Pernell Fitzgerald ; [facility] Ondansetron HCl 4 MG Oral Tablet 06/28/2023 - 07/12/20 Provider: Pernell Fitzgerald MD Diagnosis: 1-2 p o q 6-8h as needed for nausea Last Documented On 3 8:44AM By Pernell Fitzgerald ; [facility] Mupirocin 2% External Ointment 06/23/2023 - 06/28/2023 Provider: Pernell Fitzgerald MD Diagnosis: as directed Apply to each no stril with a q tip once a day for 5 days prior to surgery Last Documented On 3 3:24PM By Laurie Pablo ; [facility] Mupirocin 2% External Ointment 06/08/2023 - 06/13/2023 Provider: Pernell Fitzgerald MD Diagnosis: as directed Apply to each no stril with a q tip once a day for 5 days prior to surgery Last Documented On 3 1:53PM By Laurie Pablo ; [facility] Cefadroxil 500 MG Oral Capsule 09/17/2021 - 09/20/2021 Provider: Pernell Fitzgerald MD Diagnosis: twice a day Last Documented On 1 2:48PM By Haley Allen ; [facility] Colace 100 MG Oral Capsule 09/17/2021 - 10/17/2021 Pro vider: Pernell Fitzgerald MD Diagnosis: 1-2 tablets daily, as needed, AFTER SURGERY Last Documented On 1 2:48PM By Haley Allen ; [facility] Zofran 4 MG Oral Tablet 09/17/2021 - 10/17/2021 Provid er: Pernell Fitzgerald MD Diagnosis: take 1 tablet every 6-8hrs for nausea, AFTER ZAIDA ANA Last Documented On 1 2:49PM By Haley Allen ; [facility] oxyCODONE HCl 5 MG Oral Tablet 09/17/2021 - 10/17/2021 Provider: Pernell Fitzgerald MD Diagnosis: take 1-2 tablets every 4-6hrs for post op pain Last Documented On 1 3:02PM By Pernell Fitzgerald ; [facility] Ultram 50 MG Oral Tablet 09/17/2021 - 10/17/2021 Provi fausto: Pernell Fitzgerald MD Diagnosis: 1-2 tablets every 6-8 hours for breakthrough pos t op pain Last Documented On 1 3:02PM By Pernell Fitzgerald ; [facility] Aspirin Adult Low Strength 8 1 MG Oral Tablet Delayed Release 09/17/2021 - 11/01/2021 Provider: Pernell Fitzgerald MD Diagnosis: twice a day Last Documented On 1 2:47PM By Haley Allen ; [facility] Acetaminophen 500 MG Oral Tablet 09/17/2021 - 10/17/20 21 Provider: Pernell Fitzgerald MD Diagnosis: take 2 tablets 3 times daily, AFTER SURGERY Last Documented On 1 2:47PM By Haley Allen ; [facility] oxyCODONE HCl 5 MG Oral Tablet 09/14/2021 - 10/14/2021 Provider: Pernell Fitzgerald MD Diagnosis: take 1-2 tablets every 4-6hrs for post op pain Last Documented On 1 4:52PM By Pernell Fitzgerald ; [facility] Ultram 50 MG Oral Tablet 07/31/2021 - 08/30/2021 Provi fausto: Pernell Fitzgerald MD Diagnosis: 1-2 po q6h prn pain Last Documented On 1 2:44PM By Pernell Fitzgerald ; [facility] Ultram 50 MG Oral Tablet 06/02/2021 - 07/02/2021 Provi fausto: Pernell Fitzgerald MD Diagnosis: 1-2 po q6h prn pain Last Documented On 1 12:40PM By Pernell Fitzgerald ; [facility] Medications Administered Includes: Administered Medications from this [...] Last Documented On 3 10:04AM ; [facility] Smoking Status Unknown Procedures and Surgical History Includes: Procedures from this encounter Procedures Code Diagnosis Performing Provider Service L ocation Service Date use of tobacco assessment performed 1000F Last Documented On 3 10:04AM ; [facility] patient screened for future fall risk: documentation of any fall with injury in past year 1100F Last Documented On 3 10:04AM ; [facility] review of medications documented 1160F Last Documented On 3 10:04AM ; [facility] Surgical History Last Updated History of History of Gallbladder 2022 Last Documented On 3 10:04AM ; [facility] History of hysterectomy 12/21/2022 Last Documented On 3 10:04AM ; [facility] History of total hip replacement 023 Last Documented On 3 10:04AM ; [facility] Medical History Includes: Medical History addressed during this encounter Description Last Updated History of arthritis 12/21/2022 Last Documented On 3 10:04AM ; [facility] History of depression 12/21/2022 Last Documented On 3 10:04AM ; [facility] History of heart disease 12/21/2022 Last Documented On 3 10:04AM ; [facility] History of Heartburn / Acid Reflux 12/21 Last Documented On 3 10:04AM ; [facility] History of Hypertension 12/21/2022 Last Documented On 3 10:04AM ; [facility] History of Irregular Heartbeat 3 Last Documented On 3 10:04AM ; [facility] Recent immunization for flu 07/31/2021 1 12/28/2020 Last Documented On 3 10:04AM ; [facility] No recent immunization for pneumococcal pneumonia 03/27/2021 Last Documented On 3 10:04AM ; [facility] Family History Includes: Family History addressed during this encounter Description Last Updated Diabetes mellitus 12/21/2022 Last Documented On 3 10:04AM ; [facility] Family history of heart disease 12/21/19 23 Last Documented On 3 10:04AM ; [facility] Family history of osteoporosis 3 Last Documented On 3 10:04AM ; [facility] Family history of rheumatoid arthritis 0 12/21/2022 Last Documented On 3 10:04AM ; [facility] Review of Systems Includes: Review of [...] [facility] Note: hyper Encounters Encounter Provider Location Date Check-In Time Check- Out Time Diagnosis Follow Up Pernell Fitzgerald MD [facility] 3 10:02AM 10:52AM Insurance Includes: Active Insurance Policies Plan Name Member ID Group # Subscriber Relationship Effect elena Dates 1 - Medicare Part B [facility] [id number] Karina Wilson Self 05/31/2013 - Unknown 2 - [facility] [employer] [id number] Karina Wilson Self 10/31/19 21 - Unknown Clinical Notes Includes: Clinical Notes from this encounter * Progress note Date Encounter Last Documented by 08/23/2023 Follow Up Last documented on 08/25/2023; 1:29 PM, Pernell Fitzgerald MD; [facility] Active Problems & Conditions - Joint Pain [...] Care Team - HIRAM PIERRE MD - VOLCANOLOGIST - Luh Sesay PA-C
--- OUTSIDE RECORDS SUMMARY | 2025-02-24 17:47 | XMS_ITS | Clinical Summary ---
Author Organization [facility] , [facility] Address [address] [place] [address] Phone Care Team Providers Care Fisher Trap Name Role Phone Lázaro ISIDRO, Luh Unavailable [phone] Lia FIGUEREDO, Pernell Unavailable [phone] IGNACIO FIGUEREDO, HIRAM Unavailable [phone] Reason for Visit and Chief Complaint The Chief Complaint is: left hip pain Problems Includes: Problems addressed during this encounter and other active Problems All Visits Onset Date Resolved Date Provider Condition S tatus Joint Pain in the Left Hip 03/27/2021 Pernell marshall MD Active Last Documented On 8:21AM ; [facility] Plan of Treatment Fall Risk [...] - Last Documented On 08/09/2023 2:05PM ; [facility] Patient was seen by myself Robert Hayward PA-C. Patient will follow up [address] Ackerman she was scheduled for next week I think we can push it off for a week did offer physical therapy but she does not want to do that. Recommend continue with just conservative care rest and Tylenol. - Last Documented On 08/09/2023 2:05PM ; [facility] Assessments Includes: Assessments from this encounter Findings Left total hip revision - Last Documented On 08/09/2023 2:05PM ; [facility], [facility] left hip strain and gastroc strain - Last Documented On 08/09/2023 2:05PM ; [facility], [facility] Medical Equipment - Implanted Devices Includes: Current Devices No Medical Equipment Recorded Medications Includes: Medications discussed during this encounter and other current Medications Current Medications (continue as prescribed) Ondansetron 4 MG Oral Tablet Disintegrating 12/12/2023 Provider: Diagnosis: Last Documented On 4 9:22AM By Albania Darby ; [facility], [facility] Sotalol HCl 80 MG Oral Tablet 12/07/2023 Provider: HIRAM PIERRE MD Diagnosis: Last Documented On 4 9:22AM By Albania Darby ; [facility], [facility] Levothyroxine Sodium 25 MCG Oral Tablet 12/02/2023 Coni mitchell: HIRAM PIERRE MD Diagnosis: Last Documented On 4 9:22AM By Albania Darby ; [facility], [facility] Valsartan-hydroCHLOROthiazid e 320-12.5 MG Oral Tablet 12/02/2023 Provider: HIRAM PIERRE MD Diagnosis: Last Documented On 4 9:22AM By Albania Darby ; [facility], [facility] Venlafaxine HCl ER 150 MG Or al Capsule Extended Release 24 Hour 12/02/2023 Provider: HIRAM PIERRE MD Diagnosis: Last Documented On 4 9:22AM By Albania Darby ; [facility], [facility] Amoxicillin-Pot Clavulanate 875-125 MG Oral Tablet Provider: Diagnosis: Last Documented On 4 9:22AM By Albania Darby ; [facility], [facility] Cetirizine HCl 10 MG Oral Capsule 03/27/2021 Provide r: Diagnosis: Last Documented On 1 9:12AM By Ami Dickerson ; [facility], [facility] Tetracycline HCl 500 MG Oral Capsule 01/22/2021 Prov ider: CARLA RUIZ II, MD Diagnosis: Last Documented On 1 8:45AM By Pam Valencia ; [facility], [facility] Omeprazole 20 MG Oral Capsul e Delayed Release 01/22/2021 Provider: CARLA RUIZ II, MD Diagnosis: Last Documented On 1 8:45AM By Pam Valencia ; [facility], [facility] metroNIDAZOLE 250 MG Oral [...] Documented On 8:45AM By Pam Valencia ; [facility] Donepezil HCl 10 MG Oral Tablet 11/13/2020 Provider: TONY CARRERA MD (N) Diagnosis: Last Documented On 8:45AM By Pam Valencia ; [facility], [facility] Meloxicam 15 MG Oral Tablet 09/06/2020 Provider: Diagnosis: Last Documented On 1 9:12AM By Ami Dickerson ; [facility], [facility] Atorvastatin Calcium 10 MG Oral Tablet 06/06/2020 Pr ovider: Diagnosis: Last Documented On 1 9:12AM By Ami Dickerson ; [facility], [facility] Past Medications on [...] ; [facility] traMADol HCl 50 MG Oral Tablet 06/28/2023 - 07/13/2023 Provider: Pernell Fitzgerald MD Diagnosis: 1-2 p o q 6-8h for breakthrough post op pain Last Documented On 3 8:44AM By Pernell Fitzgerald ; [facility] Acetaminophen 500 MG Oral Tablet 06/28/2023 - 07/28/20 Provider: Pernell Fitzgerald MD Diagnosis: 2 three times a day , AFTER SURGERY Last Documented On 3 8:29AM By Pernell Fitzgerald ; [facility] Colace 100 MG Oral Capsule 06/28/2023 - 07/28/2023 Pro vider: Pernell Fitzgerald MD Diagnosis: 1-2 tabs daily as needed, AFTER SURGERY Last Documented On 3 8:44AM By Pernell Fitzgerald ; [facility] Ondansetron HCl 4 MG Oral Tablet 06/28/2023 - 07/12/20 Provider: Pernell Fitzgerald MD Diagnosis: 1-2 p o q 6-8h as needed for nausea Last Documented On 3 8:44AM By Pernell Fitzgerald ; [facility], [facility] Mupirocin 2% External Ointment 06/23/2023 - 06/28/2023 Provider: Pernell Fitzgerald MD Diagnosis: as directed Apply to each no stril with a q tip once a day for 5 days prior to surgery Last Documented On 3 3:24PM By Laurie Pablo ; [facility], [facility] Mupirocin 2% External Ointment 06/08/2023 - 06/13/2023 Provider: Pernell Fitzgerald MD Diagnosis: as directed Apply to each no stril with a q tip once a day for 5 days prior to surgery Last Documented On 3 1:53PM By Laurie Pablo ; [facility] Cefadroxil 500 MG Oral Capsule [...] Allen ; [facility], [facility] Zofran 4 MG [...] Fitzgerald ; [facility], [facility] Aspirin Adult Low Strength 8 1 MG Oral Tablet Delayed Release 09/17/2021 - 11/01/2021 Provider: Pernell Fitzgerald MD Diagnosis: twice a day Last Documented On 1 2:47PM By Haley Allen ; [facility], [facility] Acetaminophen 500 MG Oral Tablet 09/17/2021 - 10/17/20 21 Provider: Pernell Fitzgerald MD Diagnosis: take 2 tablets 3 times daily, AFTER SURGERY Last Documented On 1 2:47PM By Haley Allen ; [facility], [facility] oxyCODONE HCl 5 MG Oral Tablet 09/14/2021 - 10/14/2021 Provider: Pernell Fitzgerald MD Diagnosis: take 1-2 tablets every 4-6hrs for post op pain Last Documented On 1 4:52PM By Pernell Fitzgerlad ; [facility] Ultram 50 MG Oral Tablet 07/31/2021 - 08/30/2021 Provi fausto: Pernell Fitzgerald MD Diagnosis: 1-2 po q6h prn pain Last Documented On 1 2:44PM By Pernell Fitzgerald ; [facility] Ultram 50 MG Oral Tablet 06/02/2021 - [...] Documented On 3 1:35PM ; [facility], [facility] No recent change in diet 12/27/2023 Last Documented On 3 1:35PM ; [facility] Not a current smoker. 12/27/2023 Last Documented On 3 1:35PM ; [facility] Caffeine use 12/21/2022 Last Documented On 3 1:35PM ; [facility], [facility] Not exercising regularly 12/21/2022 Last Documented On 3 1:35PM ; [facility] Non-smoker 03/27/2021 Last Documented On 3 1:35PM ; [facility] No recent change in diet 03/27/2021 Last Documented On 3 1:35PM ; [facility], [facility] Not a current smoker. 03/27/2021 Last Documented On 3 1:35PM ; [facility], [facility] Not using alcohol 03/27/2021 Last Documented On 3 1:35PM ; [facility], [facility] Not using drugs 03/27/2021 Last Documented On 3 1:35PM ; [facility], [facility] Smoking Status Unknown Procedures and Surgical History Includes: Procedures from this encounter Procedures Code Diagnosis Performing Provider Service L ocation Service Date use of tobacco assessment performed 1000F Last Documented On 3 1:36PM ; [facility], [facility] patient screened for future fall risk: documentation of any fall with injury in past year 1100F Last Documented On 3 1:36PM ; [facility], [facility] review of medications documented 1160F Last Documented On 3 1:36PM ; [facility], [facility] Surgical History Last Updated History of History of Gallbladder 2022 Last Documented On 3 1:35PM ; [facility], [facility] History of hysterectomy 12/21/2022 Last Documented On 3 1:35PM ; [facility] History of total hip replacement 023 Last Documented On 3 1:35PM ; [facility], [facility] Medical History Includes: Medical History addressed during this encounter Description Last Updated History of arthritis 12/21/2022 Last Documented On 3 1:35PM ; [facility] History of depression 12/21/2022 Last Documented On 3 1:35PM ; [facility] History of heart disease 12/21/2022 Last Documented On 3 1:35PM ; [facility] History of Heartburn / Acid Reflux 12/21 Last Documented On 3 1:35PM ; [facility], [facility] History of Hypertension 12/21/2022 Last Documented On 3 1:35PM ; [facility] History of Irregular Heartbeat 3 Last Documented On 3 1:35PM ; [facility] Recent immunization for flu 07/31/2021 1 12/28/2020 Last Documented On 3 1:35PM ; [facility] No recent immunization for pneumococcal pneumonia 03/27/2021 Last Documented On 3 1:35PM ; [facility] Family History Includes: Family History addressed during this encounter Description Last Updated Diabetes mellitus 12/21/2022 Last Documented On 3 1:35PM ; [facility] Family history of heart disease 12/21/19 23 Last Documented On 3 1:35PM ; [facility] Family history of osteoporosis 3 Last Documented On 3 1:35PM ; [facility] Family history of rheumatoid arthritis 0 12/21/2022 Last Documented On 3 1:35PM ; [facility] Review of Systems Includes: Review [...] Active Last Documented On 4 10:44AM ; [facility] Note: hyper Encounters Encounter Provider Location Date Check-In Time Check- Out Time Diagnosis Follow Up Robert Hayward PA-C [facility] 3 1:31PM 2:03PM Insurance Includes: Active Insurance Policies Plan Name Member ID Group # Subscriber Relationship Effect elena Dates 1 - Medicare Part B [facility] [id number] Karina Wilson Self 05/31/2013 - Unknown 2 - [employer] [id number] Karina Wilson Self 10/31/19 21 - Unknown Clinical Notes Includes: Clinical Notes from this encounter * Progress note Date Encounter Last Documented by 08/09/2023 Follow Up Last documented on 08/09/2023; 2:05 PM, Robert Hayward PA-C; [facility], [facility] Active Problems & Conditions [...] Care Team - HIRAM PIERRE MD - [employer]ATOR - Luh Sesay PA-C
[2025-02-24 17:48] LABS: Appearance,Urine CLEAR (Clear); Bilirubin,Urine Negative (Negative); Blood, Urine Negative (Negative); Color,Urine YELLOW (Yellow); Glucose,Urine (UA) Negative (Negative); Ketones,Urine Negative (Negative); Leukocyte Esterase,Urine TRACE (Negative); Nitrate,Urine Negative (Negative); Protein,Urine TRACE (Negative); Specific Gravity, Urine 1.025 (1.005-1.030); Urobilinogen,Urine 0.2 EU/dl (0.2)
--- NOTE | 2025-02-24 17:53 | HMH.EDGENADL ---
Discharge Plan Disposition Patient Disposition: Home, Self-Care Condition: Good Prescriptions Prescriptions: New lidocaine 5 % adhesive patch,medicated 1 patch topical DAILY PRN (Reason: back pain) 30 Days Qty: 30 0RF Rx Instructions: leave on most painful area for up to 12 hrs No Action levothyroxine [Synthroid] 25 mcg tablet 25 mcg PO DAILY 90 Days Qty: 90 meloxicam 15 mg tablet 15 mg PO DAILY 90 Days Qty: 90 venlafaxine [Effexor XR] 150 mg capsule,extended release 24hr 150 mg PO DAILY 90 Days Qty: 90 atorvastatin [Lipitor] 10 mg tablet 10 mg PO HS 90 Days Qty: 90 Xarelto 20 mg tablet 20 mg PO HS 90 Days Qty: 90 valsartan-hydrochlorothiazide [Diovan HCT] 320-12.5 mg tablet 1 tab PO DAILY acetaminophen [Tylenol Extra Strength] 500 mg tablet 500 mg PO Q6H PRN (Reason: Pain) sotalol [Betapace] 80 mg tablet 40 mg PO BID PRN (Reason: Blood Pressure) cefdinir 300 mg capsule 300 mg PO BID 5 Days Qty: 10 0RF Referrals Follow up/Referrals: Akhil Brown MD [Primary Care Provider] - See instructions Activity Restrictions/Add. Instructions Additional Instructions/Restrictions: As we discussed, your CT scan and your labs including your kidney function and white blood cell count are reassuring. Your previous urine culture grew out E. coli which is resistant to many antibiotics. This is the reason why you were receiving the intramuscular antibiotics. You have received that same antibiotic today. I have prescribed a medication to help with the pain in your sides. Please return with any new or worsening symptoms. Please continue to receive your antibiotics as scheduled. Please follow-up with your primary care doctor Clinical Impressions Clinical Impression: Urinary tract infection Print Language Print Language: Latvian Discharge ED Provider: Roman Pendleton Adult HPI General Chief complaint: PAIN Stated complaint: Lower back pain,UTI,fever Time Seen by Provider: 02/24/25 17:53 Mode of Arrival: Ambulatory Source of Information: Patient Description of Symptoms (Recalled from ER Triage Doc. by RN): PT presents for evaluation of pain in her lower back that is a 7/10. Pt is on abx for a uti that was diagnosed last week. Family states patient is having a fever but did not check her temp states she just feels hot History of Present Illness HPI narrative: Patient presents for bilateral flank and back pain, chills, gradual in onset starting over the past 4 days, constant, stable in course, upon further questioning he has been on intramuscular antibiotics for treatment of UTI, pyelonephritis. Patient has otherwise been in her normal state of health. Denies any recorded fevers nausea vomiting abdominal pain. Pain is diffuse throughout her lower back and not localized Please note that above description of symptoms, in this electronic medical record under categorization of recalled from ER triage doctor by RN are reflective of an initial nursing assessment, however, is not reflective of my full history and physical exam that was personally taken and clarified. Consequentially, this preceding description of symptoms, which may include the patient's categorized chief complaint in the EMR, do not reflect my personal clinical impression, and the ultimate description of history of present illness and patient stated complaints should be deferred to this section of the note. Unless stated otherwise or congruent with this section of the note, additional signs, symptoms, or incongruence should be interpreted as inaccurate with my clinical impression. Related Data Home Medications ?Medication ?Instructions ?Recorded ?Confirmed levothyroxine 25 mcg tablet 25 mcg PO DAILY thyroid 90 days 08/07/20 02/22/25 (Synthroid) #90 tabs meloxicam 15 mg tablet 15 mg PO DAILY Pain 90 days #90 08/07/20 02/22/25 tabs venlafaxine 150 mg 150 mg PO DAILY mood 90 days #90 08/07/20 02/22/25 capsule,extended release 24 hr caps (Effexor XR) valsartan 320 1 tab PO DAILY blood pressure 08/22/20 02/22/25 mg-hydrochlorothiazide 12.5 mg tablet (Diovan HCT) atorvastatin 10 mg tablet (Lipitor) 10 mg PO HS Cholesterol 90 days 11/13/20 02/22/25 #90 tabs rivaroxaban 20 mg tablet (Xarelto) 20 mg PO HS Blood thinner 90 days 11/13/20 02/22/25 #90 tabs acetaminophen 500 mg tablet 500 mg PO Q6H PRN Pain 05/14/21 02/22/25 (Tylenol Extra Strength) sotalol 80 mg tablet (Betapace) 40 mg PO BID PRN Blood Pressure 02/22/23 04/25/25 Previous Rx's ?Medication ?Instructions ?Recorded cefdinir 300 mg capsule 300 mg PO BID 5 days #10 caps 02/16/25 lidocaine 5 % topical patch 1 patch topical DAILY PRN back 02/24/25 pain 30 days #30 ea Allergies Allergy/AdvReac Type Severity Reaction Status Date / Time venom-honey bee Allergy Intermediate Unknown Verified 02/22/25 13:41 allergy reaction venom-wasp Allergy Intermediate Unknown Verified 02/22/25 13:41 allergy reaction diphenhydramine (From Allergy Unknown HYPER Verified 02/22/25 13:41 BENADRYL) tuberculin, purified protein Allergy Unknown I-HIVES Verified 02/22/25 13:41 deriva (TUBERCULIN, PURIFIED PROTEIN DERIVA) COVID-19 (SARS-CoV-2) Allergy Unknown Verified 02/22/25 13:41 vaccine, olga allergy reaction [facility] Disclaimer: The information contained in this section may have been updated after the patient was seen, as this information can be updated by other users. Medical History (Updated 02/24/25 @ 20:10 by Roman Pendleton MD) Schizophrenia Thyromegaly Lymphadenopathy History of cataract Palpitations SOB (shortness of breath) on exertion Chest pain Dementia Schizophrenia Hyperlipidemia Sinus bradycardia Osteoarthritis Hypothyroid Hypertension Atrial fibrillation History of anemia Uterine cancer Skin cancer Surgical History Hx of melanoma excision Hx of dilation and curettage History of hysterectomy History of cholecystectomy Family History Other Family history of diabetes mellitus type II Family history of hypertension Family history of myocardial infarction Social History (Updated 02/22/25 @ 13:39 by Marcello Benitez RN) Smoking Status: Never smoker alcohol intake: never substance use type: denies use current occupational status: retired Travel in the last 8 weeks?: None household members: none housing: house lives independently: Yes marital status: education level: high school current occupational exposures/hazards: No caffeine: No in current or past relationships, have you been: made to feel afraid do you feel safe at home: Yes victim of physical abuse: No victim of emotional abuse: No victim of sexual abuse: No would you like helpful sources: No Have you lived/traveled outside [place] in past 30 days?: No Contact w/someone who lives/traveled outside US past 30 days?: No Exposure to someone with infectious disease in past 14 days?: No Do you have a fever (greater than 100.4 F or 38 C)?: No Have you tested positive for COVID-19?: No Exposed to someone with COVID-19 in past 14 days?: No Do you have a sore throat?: No Do you have a cough?: No Do you have any weakness?: No Do you have any diarrhea?: No Are you experiencing any unusual bleeding?: No Do you have any muscle aches/pain?: No Do you have any abdominal pain?: No Are you experiencing loss of taste or smell?: No Other Medical History Have you received the Flu Vaccine for this season: No Have you received the Pneumonia Vaccine: No ROS Obtained: Yes other As per HPI Physical Exam General General appearance: alert and in no apparent distress Head Head exam: atraumatic and normocephalic Eye Eye exam: Present normal appearance Neck Neck exam: Present normal inspection Chest Chest inspection: Present normal inspection and symmetric chest wall rise Respiratory Respiratory exam: Present normal lung sounds bilaterally; Absent respiratory distress Cardiovascular Cardiovascular exam: Present regular rate and normal rhythm Abdominal Exam Abdominal exam: Present soft Neurological Exam Neurological exam: Present alert and oriented X3 Psychiatric Psychiatric exam: Present normal affect and normal mood Skin Skin exam: Present warm and dry Medical Decision Making Medical Records Medical records reviewed: Yes I reviewed the patient's medical records. Screening: Per USPSTF and CDC recommendations, given the prevalence of disease in our region, it is our hospital?s policy to screen for HIV and viral Hepatitis for all patients aged 18 and over and those with ongoing risk factors. Seth Inquiry Pt receiving controlled substance: No Vital Signs: 02/24/25 17:32 02/24/25 17:45 02/24/25 18:00 Temperature 97.9 F Temperature Source Oral Pulse Rate 68 74 Pulse Rate [Right] 71 Respiratory Rate 18 Blood Pressure 155/91 H 155/96 H Blood Pressure [Right Arm] 171/92 H Blood Pressure Mean [Right Arm] 118 Blood Pressure Source [Right Arm] Automatic Cuff Blood Pressure Position [Right Arm] Sitting 02 Sat by Pulse Oximetry 99 98 99 Oxygen Delivery Method Room Air Room Air 02/24/25 18:30 02/24/25 20:21 Temperature 98.9 F Temperature Source Pulse Rate 66 86 Pulse Rate [Right] Respiratory Rate 18 Blood Pressure 157/82 H 146/95 H Blood Pressure [Right Arm] Blood Pressure Mean [Right Arm] Blood Pressure Source [Right Arm] Blood Pressure Position [Right Arm] 02 Sat by Pulse Oximetry 99 Oxygen Delivery Method Room Air Room Air Lab Data Lab Results 02/24/25 17:43: Urine Color Yellow, Urine Appearance Clear, Urine pH 6.0, Ur Specific [place] 1.025, Urine Protein Trace, Urine Glucose (UA) Negative, Urine Ketones Negative, Urine Blood Negative, Urine Nitrate Negative, Urine Bilirubin Negative, Urine Urobilinogen 0.2, Ur Leukocyte Esterase Trace, Urine RBC None, Urine WBC 3-5, Ur Squamous Epith Cells 3-5, Urine Bacteria Trace 02/24/25 17:45: WBC 4.5 L, RBC 4.47, Hgb 13.2, Hct 40.1, MCV 89.7, MCH 29.5, MCHC 32.9, RDW 13.4, Plt Count 146, MPV 10.5 H, Neut % (Auto) 72.5, Lymph % (Auto) 18.6, [place] % (Auto) 7.2, Eos % (Auto) 1.3, Baso % (Auto) 0.2, Neut # (Auto) 3.2, Lymph # (Auto) 0.8, [place] # (Auto) 0.3, Eos # (Auto) 0.1, Baso # (Auto) 0.0, Sodium 142, Potassium 3.8, Chloride 107, Carbon Dioxide 29, Anion Gap 9.8, BUN 13, Creatinine 0.90, Estimated Creat Clear 51, Estimated GFR 60, Est GFR ( Amer) 73, Glucose 106 H, Calcium 9.3, Total Bilirubin 0.7, AST 35, ALT 21, Alkaline Phosphatase 71, Total Creatine Kinase 68, Total Protein 7.2, Albumin 4.3, Globulin 2.9, Albumin/Globulin Ratio 1.5, Lipase 246 02/24/25 17:45 02/24/25 17:45 Orders (Tests/Meds): ED MEDICATIONS Discontinued Medications Generic Name Dose Route Start Last Admin Trade Name Freq PRN Reason Stop Dose Admin Ertapenem 1 gm/ Sodium 50 mls @ 100 mls/hr 02/24/25 19:32 02/24/25 19:42 Chloride IV 02/24/25 19:33 100 mls/hr ONCE STA Administration ORDERS Category Date Time Status CT abdomen pelvis wo con Stat Cat Scan 02/24/25 18:03 Completed CBC w/Auto Diff [Complete Blood Count Auto Diff] Stat Lab 02/24/25 17:45 Completed CK [Creatine Kinase] Stat Lab 02/24/25 17:45 Completed CMP [Comprehensive Metabolic Panel] Stat Lab 02/24/25 17:45 Completed Lipase Stat Lab 02/24/25 17:45 Completed Urinalysis and Microscopic Stat Lab 02/24/25 17:43 Completed Medical Decision Narrative: Patient with history and exam per above presenting for evaluation of bilateral flank pain Diagnoses considered include pyelonephritis, musculoskeletal pain, no clinical evidence to suggest fracture, referred pain from intra-abdominal pathology such as aortic aneurysm, no clinical evidence to suggest spinal epidural abscess. No focal neurologic deficits ED workup and treatment included: ED MEDICATIONS Discontinued Medications Generic Name Dose Route Start Last Admin Trade Name Freq PRN Reason Stop Dose Admin Ertapenem 1 gm/ Sodium 50 mls @ 100 mls/hr 02/24/25 19:32 02/24/25 19:42 Chloride IV 02/24/25 19:33 100 mls/hr ONCE STA Administration ORDERS Category Date Time Status CT abdomen pelvis wo con Stat Cat Scan 02/24/25 18:03 Completed CBC w/Auto Diff [Complete Blood Count Auto Diff] Stat Lab 02/24/25 17:45 Completed CK [Creatine Kinase] Stat Lab 02/24/25 17:45 Completed CMP [Comprehensive Metabolic Panel] Stat Lab 02/24/25 17:45 Completed Lipase Stat Lab 02/24/25 17:45 Completed Urinalysis and Microscopic Stat Lab 02/24/25 17:43 Completed Labs were independently interpreted by me, significant for no acute findings Imaging was independently visualized and interpreted by me, significant for no acute findings Please refer to radiology report for full details. I discussed my clinical impression with patient and answered all questions. At this time, the evidence for any other entities in the differential is insufficient to warrant any further testing or ED observation. This was explained to the patient. The patient was advised that persistent or worsening symptoms require further evaluation. Critical Care Critical Care Time Critical Care Time: No
[2025-02-24 18:00] VITALS: BP 155/96; PULSE 74; O2SAT 99
--- NOTE | 2025-02-24 18:03 | CT_ITS ---
PROCEDURE INFORMATION: Exam: CT Abdomen And Pelvis Without Contrast Exam date and time: 02/24/2025 6:12 PM Age: 79 years old Clinical indication: Abdominal pain; Flank; Other: Bilateral; Additional info: Bilateral flank pain, HX urolithiasis TECHNIQUE: Imaging protocol: Computed tomography of the abdomen and pelvis without contrast. Total images: 314 Radiation optimization: All CT scans at this facility use at least one of these dose optimization techniques: automated exposure control; mA and/or kV adjustment per patient size (includes targeted exams where dose is matched to clinical indication); or iterative reconstruction. COMPARISON: CT ABDOMEN PELVIS WO CON 11/24/2022 10:36 AM FINDINGS: Lungs: Fine linear bibasilar scarring. No acute infiltrate. Heart: Normal heart size. Small pericardial effusion, similar to October 2022. Diaphragm: Tiny hiatal hernia. Liver: Normal. No mass. Gallbladder and biliary ducts: Status post cholecystectomy. No biliary ductal dilatation. Stable pneumobilia. Pancreas: Normal. No ductal dilation. Spleen: Calcified splenic granuloma. No splenomegaly. Adrenal glands: Normal. No mass. Kidneys and ureters: No hydronephrosis, nephrolithiasis, or discrete renal mass. Duplicated left kidney. Stomach and bowel: Mild gastric wall thickening most likely from incomplete distension. Mild wall thickening the duodenum and proximal small bowel. No ileus or bowel obstruction. Unremarkable distal small bowel and terminal ileum. Severe diverticulosis of the sigmoid colon without acute diverticulitis. Unremarkable rectum. Appendix: No evidence for appendicitis. Intraperitoneal space: Unremarkable. No free air. No significant fluid collection. Vasculature: Mild atherosclerotic vascular disease. Nonaneurysmal abdominal aorta. Lymph nodes: Unremarkable. No enlarged lymph nodes. Urinary bladder: Bladder is obscured by metallic artifact. Reproductive: Prior hysterectomy. Bones/joints: Osteopenia. Moderate to severe multilevel degenerative changes of the thoracolumbar spine. Minor anterolisthesis of L4 with respect L3 and L5 is most likely degenerative. Bilateral total hip arthroplasty. No acute osseous abnormality. Soft tissues: Unremarkable. IMPRESSION: 1. No nephrolithiasis or obstructive uropathy. 2. Subjective mild wall thickening the stomach and proximal small bowel may reflect a nonspecific enteritis. No complicating features. 3. Chronic small pericardial effusion 4. Chronic mild pneumobilia 5. Severe sigmoid diverticulosis without diverticulitis.
[2025-02-24 18:15] LABS: Basophils % 0.2 % (0.1-2.0); Eosinophils # 0.1 Kmm3 (0.0-0.4); Eosinophils % 1.3 % (0.1-12.0); Hematocrit 40.1 % (37.0-47.0); Hemoglobin 13.2 g/dL (12.2-16.2); Lymphocytes # 0.8 K/mm3 (0.7-4.5); Lymphocytes % 18.6 % (10-50); Mean Corpuscular HGB Conc 32.9 g/dL (31.8-35.4); Mean Corpuscular Hemoglobin 29.5 pg (27.0-31.2); Mean Corpuscular Volume 89.7 fl (81-99); Mean Platelet Volume 10.5 fl (7.4-10.4); Monocytes # 0.3 K/mm3 (0.1-1.0); Monocytes % 7.2 % (1.7-9.3); Neutrophils # 3.2 K/mm3 (1.8-7.8); Neutrophils % 72.5 % (37.0-80.0); Nucleated Red Blood Cells # 0 10^3/uL; Nucleated Red Blood Cells % 0 %; Platelet Count 146 K/mm3 (142-424); Red Blood Count 4.47 M/mm3 (4.20-5.40); Red Cell Distribution Width 13.4 % (11.5-17.5); Red Cell Distribution Width-SD 44.4 fL; White Blood Count 4.5 K/mm3 (4.8-10.8)
--- NOTE | 2025-02-24 18:15 | PC.NURSE ---
PT RETURNED FROM CT, WARM BLANKET PROVIDED
[2025-02-24 18:25] LABS: Albumin Level 4.3 g/dl (3.5-5.0); Chloride 107 mmol/L (98-107); Potassium 3.8 mmoL/L (3.5-5.1); Sodium 142 mmol/L (136-145)
[2025-02-24 18:27] LABS: Bacteria,Urine Trace /lpf
[2025-02-24 18:28] LABS: Alanine Aminotransferase 21 U/L (12-78); Albumin/Globulin Ratio 1.5 (1.1-1.8); Alkaline Phosphatase 71 U/L (38-126); Anion Gap 9.8 mEq/L (5-15); Aspartate Amino Transferase 35 U/L (14-36); Bilirubin,Total 0.7 mg/dl (0.2-1.3); Blood Urea Nitrogen 13 mg/dl (7-17); Calcium 9.3 mg/dl (8.4-10.2); Carbon Dioxide 29 mmol/L (22.0-30.0); Creatine Kinase 68 U/L (30-135); Creatinine Clearance Estimated 51 mL/min (50-200); Estimated Glomerular Filt Rate 60 ml/min (>60); GFR (African American) 73 ML/MIN (>60); Globulin 2.9 g/dL (1.3-3.2); Glucose 106 mg/dl (74-100); Total Protein,Serum 7.2 g/dl (6.3-8.2)
[2025-02-24 18:30] VITALS: BP 157/82; PULSE 66; O2SAT 99
[2025-02-24 18:37] LABS: Lipase 246 U/L (23-300)
[2025-02-24] MEDS: ERTAPENEM SODIUM 1 GM in 0.9 % SODIUM CHLORIDE 50 ML IV (19:42)
[2025-02-24 20:21] VITALS: BP 146/95; PULSE 86; RESP 18; TEMP 37.2; O2SAT 98
== END 2025-02-24 20:22 | disposition home or self-care (01) ==
PROVIDERS: Emergency Provider Emergency Medicine; PCP Family Medicine
DX: N39.0 Urinary tract infection, site not specified (principal); M54.59 Other low back pain
CPT/HCPCS: 74176; 80053; 81001; 82550; 83690; 85025; 96374; 99284; J1335

== ENCOUNTER 2025-06-13 09:48 | Emergency (ER) | payer MEDICARE, SELFPAY ==
--- OUTSIDE RECORDS SUMMARY | 2023-12-27 11:15 | XMS_ITS ---
Author Organization [facility] Address [address] [place] [id number] Care Team Providers Care Donor Services Technician Name Role Phone Nina Batista Primary Care Provider Linda Vivar Unavailable [phone] Allergies Allergen (clinical drug ingredient) Drug/Non Drug Allergy documented on EMR Reaction Allergy Type Onset Date Status diphenhydramine Benadryl Allergy hyper Drug Allergy Active Wasp Venom hives Drug Allergy Active REASON FOR VISIT blood shot eye Medications Medication SIG (Take, Route, Frequency, Duration) Notes Start Date End Date Status Bactrim DS 800-160 MG 1 tablet Orally bi d; Duration: 7 day(s) 12/27/2023 Active Sotalol HCl 80 MG 1/2 orally 2 times a day as needed; Duration: 90 days Active Ofloxacin 0.3 % as directed Ophthalm ic every 12 hrs; Duration: 7 days 12/27/2023 Active Venlafaxine HCl ER 150 MG 1 cap(s) orall y once a day; Duration: 90 days Active Diovan HCT 320-12.5 MG 1 tab(s) orally o nce a day; Duration: 90 days Active Meloxicam 15 MG 1 tab(s) orally once a day; Duration: 90 Active B-12 1000 MCG 1 tab(s) orally once a day; Duration: 90 Active Cetirizine HCl 10 MG 1 tab(s) orally onc e a day; Duration: 90 days Active Xarelto 20 MG 1 tab(s) orally once a day (in the evening); Duration: 90 days Active Euthyrox 25 MCG Take 1 tablet by once daily; Duration: 90 days Active Donepezil HCl 10 MG 1 tab(s) orally once a day (at bedtime) Not-Taking Atorvastatin Calcium 10 MG 1 tab(s) orally once a day Active traZODone HCl 50 MG 1 tablet at bedtime as needed Orally Once a day; Duration: 30 day(s) Not-Taking Memantine HCl 10 MG 1 tab(s) orally 2 ti mes a day Not-Taking Vital Signs Blood pressure systolic 140 mm Hg 12/27/19 24 Blood pressure diastolic 72 mm Hg 024 Heart Rate 65 /min 12/27/2023 Height 69 in 12/27/2023 Weight 167.8 lbs 12/27/2023 BMI 24.78 kg/m2 12/27/2023 Encounters Encounter Location Date Provider Diagnosis [facility] [address] [place], [place] [phone] 12/27/2023 Linda Vivar Conjunctivitis H10.9 and Cellulitis L03.90 Assessments Encounter Date Diagnosis (ICD Code) Assessment Notes Treatment Notes Treatment Clinical Notes Section Notes 12/27/2023 Conjunctivitis (ICD-10 - H10.9) Heat compress as needed. Do not scratch eye. Do not use same wash cloth or towel on other parts of body. 12/27/2023 Cellulitis (ICD-10 - L03.90) Educated on buying antibacterial soap over the counter. Do not scratch scabs. Change wash clothes/towel and clothes to avoid cross contamination. Plan Of Treatment Medication Medication Name Sig Start Date Stop Date Notes Bactrim DS 800-160 MG 1 tablet Orally bi d; Duration: 7 day(s) 12/27/2023 Ofloxacin 0.3 % as directed Ophthalm ic every 12 hrs; Duration: 7 days 12/27/2023 Treatment Notes Assessment Notes Conjunctivitis Heat compress as nee ded. Do not scratch eye. Do not use same wash cloth or towel on other parts of body. Cellulitis Educated on buying a ntibacterial soap over the counter. Do not scratch scabs. Change wash clothes/towel and clothes to avoid cross contamination. Next Appt Details Follow Up: prn, Reason: Progress Notes * DELMIS HENDRICKS SDOB: [birth year] (79 yo F)Acc No.[id number]:12/27/2023 Progress Notes Patient: DELMIS FATIMA Provider: DOMITILA Hood :1945 A ge:78 Y S ex:Female Date:12/27/2023 Address:[address] [place] [address] ARAM YOUNG [id number] Pcp:Nina Batista Subjective: * Chief Complaints: * 1 . Blood shot eye. * HPI: O pthalmology: The patient is here today with c/o bleeding in the right eye. Pt states she first noticed this yesterday. Pt states the eye is itchy but denies any pain. Pt states the past 3-4 days she has had some crusting of the right eye. Pt also c/o a red sore on the right shoulder. Pt states she first noticed this about 3 days ago after getting her pneumonia vaccine. Pt states she had a similar reaction to her flu vaccine in the left arm. 78 year old female presents with c/o redness r ight eye.? c/o drainage. Denies : blurring of vision. D enies : eye pain. redeye for 3-4 days. D ermatology: c/o skin lesion r shoulder. c/o redness. c/o itching. * ROS: D ERMATOLOGY: no R cody. n o H boris. G ASTROENTEROLOGY: no N ausea. n o V omiting. n o D iarrhea.? U ROLOGY: no D ifficulty urinating. n o B lood in urine. * Medical History: o steoarthritis, IBS, Migraines, 12/30/2008 echo EF>55%, concentric LVH, atrial fib-followed by Dr. Gordon q 6 months, Hypothyroidism, Hypertension, Microcytic anemia and Leukopenia followed by Dr. Jameson, Anxiety and depression, Hyperlipidemia, PVD, Mild cognitive impairment with memory loss followed by Dr. Benito, Polyneuropathy with right foot drop, B12 deficiency. * Surgical History: h ysterectomy , gallbladder removal , left breast surgery-removal of gland , Both eyes brow lift 02/2015, Removal of skin cancer from Nose 07/2017, Both Eyelid Lifts 04/2015, Vein ablation right leg - Dr. Gordon at [facility] 11/01/2017, Colonoscopy/Dr. Chaves/polyps and left-sided diverticulosis 01/09/2021, EGD/Dr. Chaves/ large hiatal hernia 01/09/2021, Right NORMAN , C-scope/ [facility]/ diverticulosis and hemorrhoids 12/2022, Left total Hip Redo/ Dr. Fitzgerald 07/01/2023. * Hospitalization/Major Diagno stic Procedure: P alpitations 12/30/2008, [facility] - fell 09/2019. * Family History: F ather: . M other: . P aternal Grand Father: . P aternal Grand Mother: . M aternal Grand Father: . M aternal Grand Mother: .?1 brother(s) , 1 sister(s) . 1 son(s) , 2 daughter(s) . . HLP, HTN,CAD, DM. * Social History: C URRENT TOBACCO USE S moking Status: Patient does NOT smoke. C affeine: yes, frequency:. Exercise: no. Home smoke detector use: yes. Marital Status: Single. New since last visit: none. Past smoking status: no, Smoking status: Does not smoke. Occup. exposure: none. Recreational drug use: no. Alcohol: no. Sexually active: no.. Travel ouside [place]: no. * Medications: T aking Meloxicam 15 MG Tablet 1 tab(s) orally once a day , Taking B-12 1000 MCG Tablet 1 tab(s) orally once a day , Taking Cetirizine HCl 10 MG Tablet 1 tab(s) orally once a day , Taking Xarelto 20 MG Tablet 1 tab(s) orally once a day (in the evening) , Taking Euthyrox 25 MCG Tablet Take 1 tablet by mouth once daily , Taking Venlafaxine HCl ER 150 MG Capsule Extended Release 24 Hour 1 cap(s) orally once a day , Taking Diovan HCT 320-12.5 MG Tablet 1 tab(s) orally once a day , Taking Sotalol HCl 80 MG Tablet 1/2 orally 2 times a day as needed , Taking Atorvastatin Calcium 10 MG Tablet 1 tab(s) orally once a day , Not-Taking traZODone HCl 50 MG Tablet 1 tablet at bedtime as needed Orally Once a day , Not-Taking Memantine HCl 10 MG Tablet 1 tab(s) orally 2 times a day , Not-Taking Donepezil HCl 10 MG Tablet 1 tab(s) orally once a day (at bedtime) , Medication List reviewed and reconciled with the patient * Allergies: B enadryl Allergy: hyper, Wasp Venom: hives - Allergy. Objective: * Vitals: W t:167.8, Temp:98.1, BP:140/72, HR:65, Nurse:GIUSEPPE, Ht: 69, BMI:24.78. * Examination: G eneral Examination: General Appearance: NAD. H EENT: P ERRLA, R sclera red and conjunctiva, no exudate.. C hest: normal shape and expansion. H eart:? RSR. L ungs: CTAB A&P. S kin: multiple scattered superficial skin lesions on arms scabbed a nd right shoulder lesion edematous and erythematous. ? Assessment: * Assessment: 1. C onjunctivitis - H10.9 (Primary) S pecify :right 2 . C ellulitis - L03.90 Plan: * Treatment: 2. C ellulitis Start Bactrim DS Tablet, 800-160 MG, 1 tablet, Orally, bid, 7 day(s), 14 Tablet. Notes: Educated on buying antibacterial soap over the counter. Do not scratch scabs. Change wash clothes/towel and clothes to avoid cross contamination. * Follow Up: p rn * Images: Billing Information: * Visit Code: 26051 Office Visit, Est Pt., Level 3. * Procedure Codes: * Electronic signature of Radha Vivar APRN on 06/13/2025 at 10:08 AM EDT Sign off status: Pending * Provider: DOMITILA Hood Date: 0 12/27/2023 Generated for Ray miller/John/Oswaldo on: 0 06/13/2025 10:08 AM EDT History and Physical Notes * HPI (History of Present Illness) Category Sub-Category Detail Notes Category Not es Dermatology redness itching skin lesion r shoulder Opthalmology blurring of vision redeye fo r 3-4 days redness right eye drainage eye pain Examination Category Sub-Category Detail Notes Category Not es General Examination HEENT: PERRLA, R sc roger red and conjunctiva, no exudate. Heart: RSR Lungs: CTAB A&P General Appearance: NAD Skin: multiple scattered s uperficial skin lesions on arms scabbed and right shoulder lesion edematous and erythematous Chest: normal shape and exp ansion
--- OUTSIDE RECORDS SUMMARY | 2024-03-22 05:30 | XMS_ITS ---
Author Organization [facility] Address [address] [facility] [address] [place] [id number] Care Team Providers Care General Foundry Worker Name Role Phone Nina Batista Primary Care Provider Linda Vivar Unavailable [phone] Valentino Brown Unavailable [phone] Allergies Allergen (clinical drug ingredient) Drug/Non Drug Allergy documented on EMR Reaction Allergy Type Onset Date Status diphenhydramine Benadryl Allergy hyper Drug Allergy Active Wasp Venom hives Drug Allergy Active REASON FOR VISIT 3 months Medications Medication SIG (Take, Route, Frequency, Duration) Notes Start Date End Date Status traZODone HCl 50 MG 1 tablet at bedtime as needed Orally Once a day; Duration: 30 day(s) Not-Taking Donepezil HCl 10 MG 1 tab(s) orally once a day (at bedtime) Not-Taking Memantine HCl 10 MG 1 tab(s) orally 2 ti mes a day Not-Taking Diovan HCT 320-12.5 MG 1 tab(s) orally o nce a day; Duration: 90 days Active Sotalol HCl 80 MG 1/2 orally 2 times a day as needed; Duration: 90 days Active Euthyrox 25 MCG Take 1 tablet by robbie once daily; Duration: 90 days Active Venlafaxine HCl ER 150 MG 1 cap(s) orall y once a day; Duration: 90 days Active Atorvastatin Calcium 10 MG 1 tab(s) orally once a day Active Meloxicam 15 MG 1 tab(s) orally once a day; Duration: 90 Active B-12 1000 MCG 1 tab(s) orally once a day; Duration: 90 Active Cetirizine HCl 10 MG 1 tab(s) orally onc e a day; Duration: 90 days Active Xarelto 20 MG 1 tab(s) orally once a day (in the evening); Duration: 90 days Active Problems Problem Type SNOMED Code ICD Code Onset Dates Problem Status W/U Status Risk Notes Problem Cataracts, bilateral (H26.9) Active confirmed Vital Signs Blood pressure systolic 136 mm Hg 03/22/20 24 Blood pressure diastolic 84 mm Hg 024 Heart Rate 57 /min 03/22/2024 Height 69 in 03/22/2024 Weight 155.4 lbs 03/22/2024 BMI 22.95 kg/m2 03/22/2024 Encounters Encounter Location Date Provider Diagnosis [facility] [address] [facility] [address] [place] [id number] 03/22/2024 Valentino Brown Cataracts, bilateral H26.9 ; Essential hypertension I10 ; Acquired hypothyroidism E03.9 and Paroxysmal atrial fibrillation I48.0 Assessments Encounter Date Diagnosis (ICD Code) Assessment Notes Treatment Notes Treatment Clinical Notes Section Notes 03/22/2024 Cataracts, bilateral (ICD-10 - H26.9) She is an acceptable medical risk to proceed with cataract surgery. She may stop her Xarelto 3 days prior to the procedure if necessary. 03/22/2024 Essential hypertension (ICD-10 - I10) 03/22/2024 Acquired hypothyroidism (ICD-10 - E03.9) 03/22/2024 Paroxysmal atrial fibrillation (ICD-10 - I48.0) Plan Of Treatment Treatment Notes Assessment Notes Cataracts, bilateral She is an acceptabl e medical risk to proceed with cataract surgery. She may stop her Xarelto 3 days prior to the procedure if necessary. Next Appt Details Follow Up: 3 Months, Reason: Progress Notes * RUTHIEDELMIS SDOB: 6 (79 yo F)Acc No.[id number]:03/22/2024 Progress Notes Patient: DELMIS FATIMA Provider: Valentino Brown M.D. :1945 A ge:78 Y S ex:Female Date:03/22/2024 Address:[address] [place] [address] [id number] Pcp:Nina Batista Subjective: * Chief Complaints: * 1 . 3 months. * HPI: O pthalmology: She comes in for preop evaluation regarding upcoming bilateral cataract surgery by Dr. Rebolledo. She does not know the exact dates of her procedures but is planning to have the right eye done first [employer] left eye 2 weeks later. She denies exertional chest pain, palpitations, or increased shortness of breath. She has had no recent febrile illnesses. No significant cough. She is on Xarelto for paroxysmal atrial fibrillation. No issues with bleeding or bruising. C ardiology: Denies : Chest Pain. D enies : Short of Breath. D enies : Palpitations. D enies : Leg Edema. * ROS: D ERMATOLOGY: no R cody. [...] ablation right leg - Dr. Gordon at [place] [facility] 11/01/2017, Colonoscopy/Dr. Chaves/polyps and left-sided diverticulosis 01/09/2021, EGD/Dr. Chaves/ large hiatal hernia 01/09/2021, Right NORMAN , C-scope/ [facility]/ diverticulosis and hemorrhoids 12/2022, Left total Hip Redo/ Dr. Fitzgerald 07/01/2023. * Hospitalization/Major Diagno stic Procedure: P alpitations 12/30/2008, [facility] - fell 09/2019. * Family History: [...] orally once a day (at bedtime) , Discontinued Bactrim DS 800-160 MG Tablet 1 tablet Orally bid , Discontinued Ofloxacin 0.3 % Solution as directed Ophthalmic every 12 hrs , Medication List reviewed and reconciled with the patient * Allergies: B enadryl Allergy: hyper, Wasp Venom: hives - Allergy. Objective: * Vitals: W t:155.4, Temp:98.4, BP:136/84, HR:57, Nurse:ROSENDA, Ht: 69, BMI:22.95. * Examination: C ardiology: General Appearance: p leasant, NAD. H EENT: bilateral cataracts. Sclera clear. Upper dentures o/w normal. C arotid upstroke: n ormal, no bruits. H eart sounds: R RR, normal S1, S2. M urmur, click , gallop: n one. Lungs: c lear, no rales or wheezes. A bdomen: soft, nontender, positive BS. E xtremities: n o leg edema. Assessment: * Assessment: 1. C ataracts, bilateral - H26.9 (Primary) 2 . E ssential hypertension - I10 3 . A cquired hypothyroidism - E03.9 4 . P aroxysmal atrial fibrillation - I48.0 Plan: * Treatment: * Follow Up: 3 Months * Images: Billing Information: * Visit Code: 74187 Office Visit, Est Pt., Level 3. * Procedure Codes: * Electronic signature of Valentino Brown MD on 06/13/2025 at 10:08 AM EDT Sign off status: Pending * Provider: Valentino Brown M.D. Date: 0 03/22/2024 Generated for Vikii ng/John/eTransmitting on: 0 06/13/2025 10:08 AM EDT History and Physical Notes * HPI (History of Present Illness) Category Sub-Category Detail Notes Category Not es Cardiology Short of Breath Chest Pain Palpitations Leg Edema Opthalmology She is on Xarel to for paroxysmal atrial fibrillation. No issues with bleeding or bruising Examination Category Sub-Category Detail Notes Category Not es Cardiology Lungs: clear, no rales or wheezes HEENT: bilateral cataracts. Sclera clear. Upper dentures o/w normal Heart sounds: RRR, normal S1, S2 Abdomen: soft, nontender, pos itive BS Carotid upstroke: normal, no bruits Extremities: no leg edema Murmur, click , gallop: none General Appearance: pleasant, NAD
--- OUTSIDE RECORDS SUMMARY | 2024-09-06 10:45 | XMS_ITS ---
Author Organization [facility] Address [address] [facility] [address] [facility] [address] [place] [id number] Care Team Providers Care Associate Publisher Name Role Phone Nina Batista Primary Care Provider [phone] Linda Vivar Unavailable [phone] Valentino Brown Unavailable [phone] Allergies Allergen (clinical drug ingredient) Drug/Non Drug Allergy documented on EMR Reaction Allergy Type Onset Date Status diphenhydramine Benadryl Allergy hyper Drug Allergy Active Wasp Venom hives Drug Allergy Active Results Component Value Reference Range Notes CBC Fingerstick (in house) Reviewed date:09/06/2024 02:51:54 PM Interpretation: Performing Lab: Notes/Report: wbc 6.6 3.5 - 10 lym 16.7 15 - 50 mid 4.5 2 - 15 gran 78.8 35 - 80 rbc 4.73 3.5 - 5.5 hgb 13.7 11.5 - 16.5 hct 42.4 35 - 55 mcv 89.5 75 - 100 mch 29.0 25 - 35 mchc 32.4 31 - 38 plat 134 100 - 400 REASON FOR VISIT dainage,throat hurts Medications Medication SIG (Take, Route, Frequency, Duration) Notes Start Date End Date Status Donepezil HCl 10 MG 1 tab(s) orally once a day (at bedtime) Not-Taking Memantine HCl 10 MG 1 tab(s) orally 2 ti mes a day Not-Taking Atorvastatin Calcium 10 MG 1 tab(s) orally once a day; Duration: 90 days Active traZODone HCl 50 MG 1 tablet at bedtime as needed Orally Once a day; Duration: 30 day(s) Not-Taking Euthyrox 25 MCG Take 1 tablet by once daily; Duration: 90 days Active Diovan HCT 320-12.5 MG 1 tab(s) orally o nce a day; Duration: 90 days Active Venlafaxine HCl ER 150 MG 1 cap(s) orall y once a day; Duration: 90 days Active Xarelto 20 MG 1 tab(s) orally once a day (in the evening); Duration: 90 days Active Cetirizine HCl 10 MG 1 tab(s) orally onc e a day; Duration: 90 days Active Sotalol HCl 80 MG 1/2 orally 2 times a day as needed; Duration: 90 days Active Meloxicam 15 MG 1 tab(s) orally once a day; Duration: 90 Active B-12 1000 MCG 1 tab(s) orally once a day; Duration: 90 Active Doxycycline Hyclate 100 MG 1 tablet Orally Two times a day 09/06/2024 Active Promethazine-DM 6.25-15 MG/5ML 5 ml Orally every 6 hrs prn 09/06/2024 Active Vital Signs Blood pressure systolic 150 mm Hg 09/06/20 24 Blood pressure diastolic 96 mm Hg 024 Heart Rate 67 /min 09/06/2024 Height 69 in 09/06/2024 Weight 152.4 lbs 09/06/2024 BMI 22.50 kg/m2 09/06/2024 Encounters Encounter Location Date Provider Diagnosis [facility] [address] [phone] 09/06/2024 Valentino Brown URI (upper respirato ry infection) J06.9 Assessments Encounter Date Diagnosis (ICD Code) Assessment Notes Treatment Notes Treatment Clinical Notes Section Notes 09/06/2024 URI (upper respiratory infection) (ICD-10 - J06.9) Plan Of Treatment Medication Medication Name Sig Start Date Stop Date Notes Doxycycline Hyclate 100 MG 1 tablet Oral ly Two times a day 09/06/2024 Promethazine-DM 6.25-15 MG/5ML 5 ml Orally every 6 hrs prn 09/06/2024 Next Appt Details Follow Up: prn, Reason: Progress Notes * DELMIS HENDRICKS SDOB: [birth year] (79 yo F)Acc No.[id number]:09/06/2024 Progress Notes Patient: DELMIS FATIMA Provider: Valentino Brown M.D. :1945 A ge:78 Y S ex:Female Date:09/06/2024 Address: [id number] Pcp:Nina Batista Subjective: * Chief Complaints: * 1 . Dainage,throat hurts. * HPI: E NT/respiratory: cough P t presents today with c/o nasal drainge, cough w/ some sputum production and pain in the throat on the right side. Pt sts that she has felt bad for three days. * ROS: D ERMATOLOGY: no R cody. [...] ablation right leg - Dr. Gordon at [facility] 11/01/2017, Colonoscopy/Dr. Chaves/polyps and left-sided diverticulosis 01/09/2021, EGD/Dr. Chaves/ large hiatal hernia 01/09/2021, Right [facility] , C-scope/ [facility]/ diverticulosis and hemorrhoids 12/2022, Left total Hip Redo/ Dr. Fitzgerald 07/01/2023. * Hospitalization/Major Diagno stic Procedure: P alpitations 12/30/2008, [facility] ER - fell 09/2019. * Family History: [...] tab(s) orally once a day , Taking Venlafaxine HCl ER 150 MG Capsule Extended Release 24 Hour 1 cap(s) orally once a day , Taking Diovan HCT 320-12.5 MG Tablet 1 tab(s) orally once a day , Taking Xarelto 20 MG Tablet 1 tab(s) orally once a day (in the evening) , Taking Sotalol HCl 80 MG Tablet 1/2 orally 2 times a day as needed , Taking Atorvastatin Calcium 10 MG Tablet 1 tab(s) orally once a day , Taking Euthyrox 25 MCG Tablet Take 1 tablet by mouth once daily , Not-Taking traZODone HCl 50 MG Tablet [...] hives - Allergy. Objective: * Vitals: W t:152.4, Temp:98.8, BP:150/96, HR:67, O2 Sat:98% on RA, Nurse:ROSENDA, Ht: 69, BMI:22.50. * Examination: E NT/Respiratory: General Appearance: N AD. E ars: a uditory canals normal bilaterally, TM's WNL. N ose : n ormal, no lesions, nares patent. O ral cavity :? erythema without exudate on pharynx. H eart : R RR, normal S1 S2, no murmurs. L ungs: c lear to auscultation bilaterally. Assessment: * Assessment: 1. U RI (upper respiratory infection) - J06.9 (Primary) Plan: * Treatment: Value Reference Range w bc 6.6 3.5 - 10 * l ym 16.7 15 - 50 * m id 4.5 2 - 15 * g ran 78.8 35 - 80 * r bc 4.73 3.5 - 5.5 * h gb 13.7 11.5 - 16.5 * h ct 42.4 35 - 55 * m cv 89.5 75 - 100 * m ch 29.0 25 - 35 * m chc 32.4 31 - 38 * p lat 134 100 - 400 * Brittany Raymond 09/06/2024 2:51 :47 PM > results reviewed w/ pt in office * Procedure Codes: 9 4760 [place], [address] CAPILLARY BLOOD DRAW, 02407 CBC WITH AUTO DIFF * Follow Up: p rn * Images: Billing Information: * Visit Code: 10779 Office Visit, Est Pt., Level 4. * Procedure Codes: [address] [place]. [address] CAPILLARY BLOOD DRAW. 29631 CBC WITH AUTO DIFF. * Electronic signature of Valentino Brown MD on 06/13/2025 at 10:09 AM EDT Sign off status: Pending * Provider: Valentino Brown M.D. Date: 11/06/2023 Generated for Vikii angela/John/eTransmitting on: 0 06/13/2025 10:09 AM EDT History and Physical Notes * HPI (History of Present Illness) Category Sub-Category Detail Notes Category Not es ENT/respiratory cough Pt presents toda y with c/o nasal drainge, cough w/ some sputum production and pain in the throat on the right side. Pt sts that she has felt bad for three days Examination Category Sub-Category Detail Notes Category Not es ENT/Respiratory Oral cavity : erythema without exudate on pharynx Ears: auditory canals norm al bilaterally, TM's WNL Heart : RRR, normal S1 S2, n o murmurs Lungs: clear to auscultatio n bilaterally General Appearance: NAD Nose : normal, no lesions, nares patent
[2025-06-13 09:59] VITALS: BP 156/115; PULSE 69; RESP 18; TEMP 36.6; O2SAT 98; BMI 25.8
[2025-06-13 10:01] VITALS: BP 167/96; PULSE 68; O2SAT 98
--- OUTSIDE RECORDS SUMMARY | 2025-06-13 10:08 | XMS_ITS ---
Author Organization Unknown Vital Signs BpStanding BpSitting BpSupine Date Temperature HeartRate Weight Hei ght Spo2 Respiration Bmi HeadCircumference FieldCount TimeRecorded NeckCircumferen ce WaistCircumference Pulse 150/96 09/06 00:00 :00 98.8 67 152,6.4 0 5,9 22.5 0 6 05/24/2025 14:45:00
--- OUTSIDE RECORDS SUMMARY | 2025-06-13 10:08 | XMS_ITS | Encounter Summary ---
Author Organization [facility] ([place], [place], [place], [place]) Address [address] [place] [address] Care Team Providers Care Warpman Name Role Phone Akhil Brown MD Primary Care Provider [phone] Encounter Details Date Type Department Care Team (Late st Contact Info) Description 09/10/2021 Transcribed Document [facility] [place] Family Medicine [facility] [place] [address] ProviderNayeli MD [address] [place] [id number] Social History Tobacco Use Types Packs/Day Years Used Date Smoking Tobacco: Never Assessed Comments Unknown Sex and Gender Information Value Date Recorded Sex Assigned at Not on file Legal Sex Female 3:37 PM CDT Gender Identity Not on file Sexual Orientation Not on file documented as of this encounter Miscellaneous Notes * [employer]ner Conversion Note - Nayeli Nava MD - 09/10/2021 2:56 PM [employer] [employer] Meds to Bed Enrollment Entered On: 09/10/2021 14:56 EST Performed On: 09/10/2021 14:56 EST by Janie Chawla RN Meds to Bed Enrollment Patient Enrollment Decision: : Yes/enroll in meds to bed program Janie Chawla RN - 09/10/2021 14:56 EST documented in this encounter Plan of Treatment Not on file documented as of this encounter Visit Diagnoses Not on filedocumented in this encounter Care Teams Warpman Relationship Specialty Start Date End Date Akhil Brown MD [address] [place] [id number] PCP - General Family Medicine 06/09/23 documented as of this encounter
--- OUTSIDE RECORDS SUMMARY | 2025-06-13 10:08 | XMS_ITS | Encounter Summary ---
Author Organization [employer] ([place], [place], [place], [place]) Address [address] [place] [address] Care Team Providers Care Web Consultant Name Role Phone Akhil Brown MD Primary Care Provider +1- [phone] Encounter Details Date Type Department Care Team (Late st Contact Info) Description 09/10/2021 Transcribed Document [facility] [place] Family Medicine [address] [place] [address] ProviderNayeli MD [address] [place] [address] Social History Tobacco Use Types Packs/Day Years Used Date Smoking Tobacco: Never Assessed Comments Unknown Sex and Gender Information Value Date Recorded Sex Assigned at Not on file Legal Sex Female 3:37 PM CDT Gender Identity Not on file Sexual Orientation Not on file documented as of this encounter Miscellaneous Notes * Cerner Conversion Note - Nayeli Nava MD - 09/10/2021 1:46 PM ARTICULATION OFFICER Patient: KARINA WILSON Age: 75 Years Sex: Female : 1945 Chief Complaint Right Hip Pain Primary Care Provider ELLIOT LOPEZ JR, JR, MD-ORT History of Present Illness This patient is a pleasant 75 yo WF who presents with Right Hip Pain. The pain has been going on for 6 months but has gotten progressively worse. She describes it as an aching pain. It is now to the point that it is affecting her ADLs. She has tried NSAIDs without relief of her pain. She has fallen. She has used a walker as an assistive device. She was seen at Dr Lopez's office and evaluated and it was determined that she has severe DJD affecting the right hip. Pt was offered a Right Anterior vs Posterior Total Hip Arthroplasty and agreed to the procedure. Pt denies a h/o DVT/PE. No trouble with anesthesia in the past. No respiratory conditions including COPD/FREDA/asthma. Review of Systems Constitutional: Neg for fevers or chills. Eyes: Neg for blurry vision or change in vision. ENT: Neg for sore throat, ear pain, or dizziness. Cardiac: Neg for chest pain or dyspnea on exertion. Respiratory: Neg for shortness of breath. Gastrointestinal: Neg for nausea, vomiting, diarrhea, or constipation. Musculoskeletal: Pos for right hip pain. Neurologic: Neg for headaches or seizures. Psychiatric: Neg for anxiety and depression. Integumentary: Neg for rash. Vital Signs T: 36.6 ??C HR: 67(Peripheral) RR: 16 BP: 163/87 SpO2: 97% HT: 177.8 cm WT: 75.91 kg BMI: 24 Oxygen Settings (Last) Oxygen Therapy Mode: Room air (09/10/21 15:22:00) Physical Exam Constitutional: This is a pleasant 75 yo WF in no acute distress. HEENT: Normocephalic, atraumatic. PEERLA. Extraocular muscles intact. Conjunctiva pink without exudate. Oropharynx pink and moist. Neck supple. No JVD. Cardiac: SI, S2. RRR. No M/R/G. Respiratory: Lungs CTA bilaterally. No wheezes, rales, or rhonchi. Abdomen: Soft, nontender, nondistended. Active bowel sounds. No visible masses. Musculoskeletal: Bilateral LE without clubbing, cyanosis or edema. Integumentary: Skin is pink, warm and dry. No rashes. Neurologic: CN II-XII grossly intact. Psychiatric: Judgment and affect appropriate. Assessment/Plan 1. Preoperative Evaluation- Pt underwent preoperative laboratory workup and diagnostic studies. 2. Hypertension- Continue Sotalol and Valsartan/HCTZ. 3. Hypothyroidism- Continue Synthroid. 4. Atrial Fib- Pt received cardiac clearance from Dr Gordon. Continue Sotalol. Xarelto on hold 3 days prior to surgery. 5. Hyperlipidemia- Continue Atorvastatin. 6. Memory Loss- Continue Namenda and Aricept. 7. Depression- Continue Venlafaxine. 8. Right Hip Pain secondary to DJD- Proceed with surgery as scheduled with Dr Lopez on 09/16/2021. BASED ON THIS INFORMATION, I FEEL THAT THIS PATIENT SHOULD REQUIRE OUTPATIENT HOSPITALIZATION UNLESS DEEMED OTHERWISE APPROPRIATE BY THE ORTHOPEDIC SURGEON GIVEN THE COMPLEXITY OF THE OPERATION. BASED ON HER ADVANCED AGE WITH MULTIPLE COMORBIDITIES, I RECOMMEND THAT SHE STAY OVERNIGHT. Problem List/Past Medical History Ongoing At risk for sleep apnea Atrial fibrillation Depression Hyperlipidemia Hypertension Hypothyroid Memory deficit Seasonal allergies Procedure/Surgical History ignacia eye surg, cholecystectomy, hysterectomy. Home Medications (7) Active amoxicillin-clavulanate 875 mg-125 mg oral tablet 1 Tab, Oral, Q12H Effexor XR 150 mg, Oral, Daily hydroCHLOROthiazide-valsartan 12.5 mg-320 mg oral tablet 1 Tab, Oral, Daily levothyroxine 25 mcg, Oral, Daily meloxicam 15 mg oral tablet 15 mg = 1 Tab, Oral, Daily sotalol 40 mg, Oral, BID Vitamin B12 1000 mcg oral tablet 1,000 mcg = 1 Tab, Oral, Daily Allergies Benadryl (hyper) Social History Alcohol Alcohol Use History No. Use in Last 12 Months: No. Nutrition/Health Regular Substance Abuse Drug Use Hx: No. Use in Last 12 Months: No. Tobacco Never (less than 100 in lifetime) Smoking Status. Never Smokeless Tobacco Status. Family History Pt mother in her 30s from an aneurysm. Pt father at 83 from COPD. Diagnostic Results EKG- NSR, 61 CXR- NAD Lab Results Test Name Test Result Date/Time Sodium Level 144 mmol/L 09/10/2021 14:45 EST Potassium Level 3.6 mmol/L 09/10/2021 14:45 EST Chloride Level 111 mmol/L 09/10/2021 14:45 EST Carbon Dioxide Level 27 mmol/L 09/10/2021 14:45 EST Anion Gap 10 09/10/2021 14:45 EST Glucose Level 90 mg/dL 09/10/2021 14:45 EST Blood Urea Nitrogen 11 mg/dL 09/10/2021 14:45 EST Creatinine Level 0.76 mg/dL 09/10/2021 14:45 EST eGFR >60 mL/min/1.73m2 09/10/2021 14:45 EST eGFR NonAfrican >60 mL/min/1.73m2 09/10/2021 14:45 EST Bun/Creatinine 14.5 09/10/2021 14:45 EST Calcium Level 9.2 mg/dL 09/10/2021 14:45 EST Protein Total 6.9 Gram/dL 09/10/2021 14:45 EST Albumin Level 3.5 Gram/dL 09/10/2021 14:45 EST Globulin 3.4 Gram/dL 09/10/2021 14:45 EST A/G Ratio 1.0 (Low) 09/10/2021 14:45 EST Bilirubin Total 0.7 mg/dL 09/10/2021 14:45 EST Alk Phos 98 Units/Liter 09/10/2021 14:45 EST AST 18 Units/Liter 09/10/2021 14:45 EST ALT 16 Units/Liter 09/10/2021 14:45 EST Hgb A1C 5.00 % 09/10/2021 14:45 EST eAVG Glucose 97 mg/dL 09/10/2021 14:45 EST WBC 5.2 K/uL 09/10/2021 14:45 EST RBC 4.13 Million/uL 09/10/2021 14:45 EST Hgb 12.0 Gram/dL 09/10/2021 14:45 EST Hct 37.0 % 09/10/2021 14:45 EST MCV 89.6 fL 09/10/2021 14:45 EST MCH 29.1 pg 09/10/2021 14:45 EST MCHC 32.4 Gram/dL 09/10/2021 14:45 EST Platelet Count 169 K/uL 09/10/2021 14:45 EST MPV 10.4 fL 09/10/2021 14:45 EST RDW 12.8 % 09/10/2021 14:45 EST Neut % 68.7 % 09/10/2021 14:45 EST Neut # 3.61 K/uL 09/10/2021 14:45 EST Lymph % 22.7 % 09/10/2021 14:45 EST Lymph # 1.19 K/uL 09/10/2021 14:45 EST [place] % 6.7 % 09/10/2021 14:45 EST [place] # 0.35 K/uL 09/10/2021 14:45 EST Eos % 1.3 % 09/10/2021 14:45 EST Eos # 0.07 K/uL 09/10/2021 14:45 EST Baso % 0.4 % 09/10/2021 14:45 EST Baso # 0.02 K/uL 09/10/2021 14:45 EST Slide Review No 09/10/2021 14:45 EST IG# 0 x10(3)/uL 09/10/2021 14:45 EST IG% 0 % 09/10/2021 14:45 EST PT 10.2 Second(s) 09/10/2021 14:45 EST INR 1.0 09/10/2021 14:45 EST PTT 30.3 Second(s) 09/10/2021 14:45 EST Urine Type. U CleanCatch 09/10/2021 14:45 EST Urine Color YELLOW2 09/10/2021 14:45 EST Urine Appearance CLEAR2 09/10/2021 14:45 EST Urine Specific [place] 1.015 09/10/2021 14:45 EST Urine pH Dipstick 7.0 09/10/2021 14:45 EST Urine Leukocyte Esterase NEGATIVE2 09/10/2021 14:45 EST Urine Nitrite NEGATIVE2 09/10/2021 14:45 EST Urine Protein Dipstick NEGATIVE2 09/10/2021 14:45 EST Urine Glucose Dipstick NEGATIVE2 09/10/2021 14:45 EST Urine Ketones Dipstick NEGATIVE2 09/10/2021 14:45 EST Urine Urobilinogen Dipstick 1.0 09/10/2021 14:45 EST Urine Bilirubin Dipstick NEGATIVE2 09/10/2021 14:45 EST Urine Blood Dipstick NEGATIVE2 09/10/2021 14:45 EST Urine Culture if Indicated Not Indicated 09/10/2021 14:45 EST Electronically signed by [facility] Conversion Crankshaft Balancer Cerner at 02/14/2023 9:15 AM CDT documented in this encounter Plan of Treatment Not on file documented as of this encounter Visit Diagnoses Not on filedocumented in this encounter Care Teams Web Consultant Relationship Specialty Start Date End Date Akhil Brown MD [address] [place] [id number] PCP - General Family Medicine 06/09/23 documented as of this encounter
--- OUTSIDE RECORDS SUMMARY | 2025-06-13 10:08 | XMS_ITS | Encounter Summary ---
Author Organization [employer] ([place], [place], [place], [place]) Address [address] [place] [address] Care Team Providers Care Cafe Server Name Role Phone Akhil Brown MD Primary Care Provider +1- [phone] Encounter Details Date Type Department Care Team (Late st Contact Info) Description 09/16/2021 Transcribed Document [facility] [place] [facility] [place] [facility] [place] [address] ProviderNayeli MD [address] [place] [address] Social History Tobacco Use Types Packs/Day Years Used Date Smoking Tobacco: Never Assessed Comments Unknown Sex and Gender Information Value Date Recorded Sex Assigned at Not on file Legal Sex Female 3:37 PM CDT Gender Identity Not on file Sexual Orientation Not on file documented as of this encounter Miscellaneous Notes * Cerner Conversion Note - Nayeli Nava MD - 09/16/2021 2:34 PM FLAG FOOTBALL COACH Patient: KARINA WILSON Age: 75 years Sex: Female : 1945 Associated Diagnoses: None Author: Derick Lin, Pharmacist Pharmacy verified patient's allergies and home medication list with the patient and their home pharmacy. Records are as follows: Home Medications (7) Active Effexor XR 150 mg, Oral, Daily hydroCHLOROthiazide-valsartan 12.5 mg-320 mg oral tablet 1 Tab, Oral, Daily levothyroxine 25 mcg, Oral, Daily meloxicam 15 mg oral tablet 15 mg = 1 Tab, Oral, Daily Namenda 10 mg oral tablet 10 mg = 1 Tab, Oral, BID sotalol 40 mg, Oral, BID Vitamin B12 1000 mcg oral tablet 1,000 mcg = 1 Tab, Oral, Daily Allergies (1) Active Reaction Benadryl hyper Thank you, Deanna MackenzieD documented in this encounter Plan of Treatment Not on file documented as of this encounter Visit Diagnoses Not on filedocumented in this encounter Care Teams Cafe Server Relationship Specialty Start Date End Date Akhil Brown MD [address] [place] [id number] PCP - General Family Medicine 06/09/23 documented as of this encounter
--- OUTSIDE RECORDS SUMMARY | 2025-06-13 10:08 | XMS_ITS | Encounter Summary ---
Author Organization [email or web address] ([place], [place], [place], [place]) Address [address] [place] [address] Care Team Providers Care Charge Lpn Name Role Phone Akhil Brown MD Primary Care Provider +1- [phone] Encounter Details Date Type Department Care Team (Late st Contact Info) Description 09/10/2021 Transcribed Document [facility] [place] [facility] [place] [address] ProviderNayeli MD [address] [place] [address] Social History Tobacco Use Types Packs/Day Years Used Date Smoking Tobacco: Never Assessed Comments Unknown Sex and Gender Information Value Date Recorded Sex Assigned at Not on file Legal Sex Female 3:37 PM CDT Gender Identity Not on file Sexual Orientation Not on file documented as of this encounter Miscellaneous Notes * Cerner Conversion Note - Nayeli ProviderMD - 09/10/2021 3:20 PM STITCHER SPECIAL MACHINE Event Note Entered On: 09/10/2021 15:21 EST Performed On: 09/10/2021 15:20 EST by Janie Chawla RN Event Note Event Date/Time : 09/10/2021 15:00 EST Description of Event : Pt was bitten by a dog on09/06/21 , was seen in the ER following day had finger nail removed and was placed on antibiotics. Coni Grace notified and pictures sent. Janie Chawla RN - 09/10/2021 15:20 EST Electronically signed by Grace [facility] Conversion Welt Sewer Cerner at 02/14/2023 9:14 AM CDT documented in this encounter Plan of Treatment Not on file documented as of this encounter Visit Diagnoses Not on filedocumented in this encounter Care Teams Charge Lpn Relationship Specialty Start Date End Date Akhil Brown MD [address] [place] [phone] PCP - General Family Medicine 06/09/23 documented as of this encounter
--- OUTSIDE RECORDS SUMMARY | 2025-06-13 10:09 | XMS_ITS | Encounter Summary ---
Author Organization [employer] ([place], [place], [place], [place]) Address [address] [place] [address] Care Team Providers Care Ict Managers Name Role Phone Akhil Brown MD Primary Care Provider +1- [phone] Encounter Details Date Type Department Care Team (Late st Contact Info) Description 09/16/2021 Transcribed Document [facility] [place] [address] ProviderNayeli MD [address] [place] [address] Social History Tobacco Use Types Packs/Day Years Used Date Smoking Tobacco: Never Assessed Comments Unknown Sex and Gender Information Value Date Recorded Sex Assigned at Not on file Legal Sex Female 3:37 PM CDT Gender Identity Not on file Sexual Orientation Not on file documented as of this encounter Miscellaneous Notes * Cerner Conversion Note - Nayeli ProviderMD - 09/16/2021 10:43 AM TRANSMISSION SUPERINTENDENT Evaluation, Physical Therapy Entered On: 09/16/2021 11:44 EST Performed On: 09/16/2021 11:15 EST by DERIC HIGUERA, PT General Information, PT Visit Type, PT : Initial evaluation Patient Orders : Order Date Order Ordering 09/16/2021 10:43 PT Evaluation and Treatment Ordered By: ELLIOT LOPEZ JR, JR, MD-ORT Active Diagnoses : No Qualifying Diagnoses Therapy Diagnosis, PT : aftercare following RTHA-anterior Admission Date : 09/16/2021 04:46 Assisted by, PT : Occupational Therapist Personal Devices : Personal Devices No Devices Recorded Assistive Devices : Assistive Devices No Devices Recorded DERIC HIGUERA, PT - 09/16/2021 11:40 EST General Status Patient Received Status : Supine in bed, Bed alarm activated Treatment Start Time : 09/16/2021 11:15 EST Patient Left Status : Up in chair, Chair alarm activated, RN/PCT informed, Family/Visitors at bedside, Communication board completed, All needs met and within reach RN/PCT Informed Comment : Yes, RN approved pt for PT eval and pt agreeable Treatment End Time : 09/16/2021 11:31 EST Treatment Time : 16 Minute(s) DERIC HIGUERA, PT - 09/16/2021 11:40 EST History and Environment Living Situation, Therapy : Home Patient Lives With : Alone Persons Assisting Patient at Home : Family member(s) Professional Skilled Services : None Persons Providing Information : Patient, Family member(s) Home Equipment Therapy, PT : Walker Walker : Walker, standard Home Setup : One story Stairs : No Ramp : Yes DERIC HIGUERA, PT - 09/16/2021 11:40 EST Prior Level of Function PT GRID Prior LOF Ambulation, Household : Independent Prior LOF Ambulation, Community : Independent Prior LOF Bed Mobility : Independent Prior LOF Toileting : Independent Prior LOF Transfer : Independent DERIC HIGUERA, PT - 09/16/2021 11:40 EST Upper Extremity Upper Extremity Dominance : Right Right UE Active ROM : WFL Right UE Strength : WFL Left UE Active ROM : WFL Left UE Strength : WFL Right UE Strength : WFL Left UE Strength : WFL DERIC HIGUERA, PT - 09/16/2021 11:40 EST Lower Extremity RLE Active ROM : Impaired Right LE Active Assist ROM : Impaired RLE Passive ROM : Impaired Right LE Strength : Impaired LLE Active ROM : WFL Left LE Strength : WFL Lower Extremity Comment : RLE is impaired secondary to surgery, 4/5 grossly assessed DERIC HIGUERA, PT - 09/16/2021 11:40 EST Functional Mobility Mobility Grid Bed Scooting : Rehab Minimal assistance Supine to Sit : Rehab Minimal assistance Sit to Stand : Rehab Minimal assistance Bed to Chair : Rehab Minimal assistance Stand to Sit : Rehab Minimal assistance DERIC HIGUERA, PT - 09/16/2021 11:40 EST Gait Training/Assessment, PT Weight Bearing Status : As tolerated Gait Assistance Level : Assist, minimal Walking Distance : 40 feet with RWX, min assist x1, WBAT, verbal cues for correct gait sequence and for safety Ambulatory Devices : Gait belt, Walker, front wheel Gait Deviations : Yes Gait Training Comment : see above Stair(s) Ascend/Descend Training : No DERIC HIGUERA, PT - 09/16/2021 11:40 EST Neuromuscular Reeducation, PT Balance Comment : good sitting and standing DERIC HIGUERA, PT - 09/16/2021 11:52 EST Neurological/Sensory Overall Sensory Response : Intact Response to Pain : Intact DERIC HIGUERA, PT - 09/16/2021 11:52 EST Activity Tolerance, PT Activity Comment : DERIC Archer, PT - 09/16/2021 11:52 EST Cognition Assessment, PT Orientation : Oriented x 4 Attention Assessment : Present DERIC HIGUERA, PT - 09/16/2021 11:52 EST Edu Topics Physical Therapy Education Grid Bed Mobility Training : Verbalizes understanding, Returns demonstration, Needs further teaching Gait Training : Verbalizes understanding, Returns demonstration, Needs further teaching Safety : Verbalizes understanding, Returns demonstration Transfer Training : Verbalizes understanding, Returns demonstration, Needs further teaching Use of Assistive Device : Verbalizes understanding, Returns demonstration, Needs further teaching DERIC HIGUERA, PT - 09/16/2021 11:52 EST Indication Assesessment, PT Physical Therapy Indicated : Yes Interdisciplinary Consultation(s) Needed : Yes Interdisciplinary Consult : Occupational Therapy PT Problem List : Impaired, bed mobility, Impaired, gait, Impaired, stair mobility, Impaired, strength, Impaired, transfers Potential Barriers To Therapy : Acuity of Illness Rehabilitation Potential : DERIC Archer, PT - 09/16/2021 11:52 EST Plan of Care, PT PT Tx Plan/Goals Established w Patient : Yes PT Frequency Rehab : Daily, twice (bid) Other PT Treatment Provided This Date : gait PT Duration Rehab : Seven Days PT Treatments Planned : Bed mobility training, Gait training, Safety education, Stair training, Therapeutic exercises, Transfer training Plan of Care Comment, PT : see above DERIC HIGUERA, PT - 09/16/2021 11:52 EST Terrazzo Finisher Goals Other PT LTG Grid Goal #1 Goal #2 Goal #3 Other : Pt will be able to ascend and descend a platform step with min assist x1 in order for her to safely navigate a curb/threshold Pt will be able to ambulate 100 feet or greater with min assist x1 in order for her to safely navigate her home Pt will participate in therapeutic exercise training and be issued a written HEP in order to increase strength for improved gait and provide carryover into the home environment Date to Meet : 09/23/2021 EST 09/23/2021 EST 09/23/2021 EST Goal Status : Initial goal Initial goal Initial goal DERIC HIGUERA, PT - 09/16/2021 11:52 EST DERIC HIGUERA, PT - 09/16/2021 11:52 EST DERIC HIGUERA, PT - 09/16/2021 11:52 EST Treatment Note Subjective Comment : agreeable Patient's Response to Treatment : good Additional Objective Information : see eval Assessment : Pt would benefit from continued skilled PT services in the acute care setting to improve her level of mobility and assist her to return to her PLOF Plan for Treatment : continue per eval POC DERIC HIGUERA, PT - 09/16/2021 11:52 EST Pain Assessment Pain Scaled Used : 0-10 Pain scale Pain Score Pre-Intervention : 4 Pain Score Post-Intervention. : 4 DERIC HIGUERA, PT - 09/16/2021 11:52 EST Image 1 - Images currently included in the form version of this document have not been included in the text rendition version of the form. Anticipated Discharge Needs, OT/PT Anticipated Discharge to : Unit, rehabilitation DERIC HIGUERA, PT - 09/16/2021 11:52 EST [facility]vo PT Charges Gait Training Each 15 Min : 1 PT Eval Low Complexity : 1 DERIC HIGUERA, PT - 09/16/2021 11:52 EST Electronically signed by Grace [facility] Conversion Media Consultant Cerner at 02/14/2023 9:26 AM CDT documented in this encounter Plan of Treatment Not on file documented as of this encounter Visit Diagnoses Not on filedocumented in this encounter Care Teams Ict Managers Relationship Specialty Start Date End Date Akhil Brown MD [address] [place] [phone] PCP - General Family Medicine 06/09/23 documented as of this encounter
--- OUTSIDE RECORDS SUMMARY | 2025-06-13 10:09 | XMS_ITS | Encounter Summary ---
Author Organization [employer] ([place], [place], [place], [place]) Address [address] [place] [address] Care Team Providers Care Dairy Farmer Name Role Phone Akhil Brown MD Primary Care Provider [phone]- [phone] Encounter Details Date Type Department Care Team (Late st Contact Info) Description 09/17/2021 Transcribed Document [facility] [place] [facility] [place] [address] ProviderNayeli MD [address] [place] [address] Social History Tobacco Use Types Packs/Day Years Used Date Smoking Tobacco: Never Assessed Comments Unknown Sex and Gender Information Value Date Recorded Sex Assigned at Not on file Legal Sex Female 3:37 PM CDT Gender Identity Not on file Sexual Orientation Not on file documented as of this encounter Miscellaneous Notes * Cerner Conversion Note - Nayeli Nava MD - 09/17/2021 12:06 PM BOX ATTACHER Final Discharge Planning Entered On: 09/17/2021 12:09 EST Performed On: 09/17/2021 12:06 EST by JARROD EMERSON RN Final Discharge Planning Discharge Arrangements : Patient Post-Acute Information Patient Name: KARINA WILSON Gender: Female : [birth year] Age: 75 Years Mae Referral(s): Service: Organization: Business Address: Phone Number: Senior Living Facility [facility] [address] [place] [address] [address], [id number] Patient Offered Choice/Affiliations Explained : Yes Designation of Choice Signed : Yes Important Medicare Message Reviewed With : Patient Important Medicare Message Reviewed D/T : 09/17/2021 12:08 EST Transportation Needs : Wheelchair van Follow Up Appointment Scheduled : Yes Is Patient High/Moderate Readmission Risk? : No Patient/Family Notified of Plan : Yes Support Person/Pt Rep Notified of Plan : Yes Is Patient Ready for Discharge? : Yes Physician Notified Patient is Ready for Discharge? : Yes Discharge To Care Management : [facility] JARROD EMERSON RN - 09/17/2021 12:06 EST Final Narrative Note Final Narrative Note : Patient has been accepted to [facility]. Patient notified. Discharge summary done per Dr. Dent and faxed over to Heather. Deng arranged for 3pm Reservation # [id number]. Patient and primary nurse Akhil notified. No further CM needs identified. JARROD EMRESON RN - 09/17/2021 12:06 EST Electronically signed by [facility] Conversion Editor Farm [employer] Cerner at 02/14/2023 9:19 AM CDT documented in this encounter Plan of Treatment Not on file documented as of this encounter Visit Diagnoses Not on filedocumented in this encounter Care Teams Dairy Farmer Relationship Specialty Start Date End Date Akhil Brown MD [address] [place] [phone] PCP - General Family Medicine 06/09/23 documented as of this encounter
--- OUTSIDE RECORDS SUMMARY | 2025-06-13 10:09 | XMS_ITS | Encounter Summary ---
Author Organization [employer] ([place], [place], [place], [place]) Address [address] [place] [address] Care Team Providers Care International Exchange Coordinator Name Role Phone Akhil Brown MD Primary Care Provider +1- [phone] Encounter Details Date Type Department Care Team (Late st Contact Info) Description 09/16/2021 Transcribed Document [facility] [place] Family Medicine [facility] [place] [address] ProviderNayeli MD [address] [place] [address] Social History Tobacco Use Types Packs/Day Years Used Date Smoking Tobacco: Never Assessed Comments Unknown Sex and Gender Information Value Date Recorded Sex Assigned at Not on file Legal Sex Female 3:37 PM CDT Gender Identity Not on file Sexual Orientation Not on file documented as of this encounter Miscellaneous Notes * Cerner Conversion Note - Nayeli ProviderMD - 09/16/2021 12:07 PM TOWBOAT PILOT Treatment Intervention, PT Entered On: 09/17/2021 13:15 EST Performed On: 09/17/2021 10:42 EST by SYLVIA WILLAMS, FURNACE INSTALLER HELPER General Information, PT Visit Type, PT : Treatment Note Patient Orders : Order Date Order Ordering 09/16/2021 10:43 PT Evaluation and Treatment Ordered By: ELLIOT LOPEZ JR, JR, MD-ORT 09/16/2021 12:07 PT Additional Treatment Ordered By: DERIC HIGUERA, PT Active Diagnoses : 09/16/2021 12:00 Essential (primary) hypertension 09/16/2021 12:00 Hyperlipidemia, unspecified 09/16/2021 12:00 Hypothyroidism, unspecified 09/16/2021 12:00 Other amnesia 09/16/2021 12:00 Other specified personal risk factors, not elsewhere classified 09/16/2021 12:00 Pain in right hip 09/16/2021 12:00 Presence of right artificial hip joint 09/16/2021 12:00 Unilateral primary osteoarthritis, right hip 09/16/2021 12:00 Unspecified atrial fibrillation Therapy Diagnosis, PT : aftercare following RTHA-anterior Admission Date : 09/16/2021 04:46 Assisted by, PT : Other: FURNACE INSTALLER HELPER Student Personal Devices : Personal Devices No Devices Recorded Assistive Devices : Assistive Devices No Devices Recorded Precautions in Place : Fall prevention measures SYLVIA WILLAMS PTA - 09/17/2021 12:59 EST General Status Patient Received Status : Up in chair, Other: IV, needs in reach Treatment Start Time : 09/17/2021 10:15 EST Patient Left Status : Up in chair, Chair alarm activated, RN/PCT informed, All needs met and within reach, Other: TECHNICAL SOLUTIONS ENGINEER/PCT Informed Comment : CHECO gonzales pt for therapy session Treatment End Time : 09/17/2021 10:42 EST Treatment Time : 27 Minute(s) SYLVIA WILLAMS PTA - 09/17/2021 12:59 EST Edu Topics Physical Therapy Education Grid Bed Mobility Training : Verbalizes understanding, Returns demonstration Gait Training : Verbalizes understanding, Returns demonstration Home Program/Exercises : Verbalizes understanding, Returns demonstration Safety : Verbalizes understanding, Returns demonstration Therapeutic Exercises : Verbalizes understanding, Returns demonstration Transfer Training : Verbalizes understanding, Returns demonstration Use of Assistive Device : Verbalizes understanding, Returns demonstration SYLVIA WILLAMS PTA - 09/17/2021 12:59 EST Plan of Care, PT PT Tx Plan/Goals Established w Patient : Yes SYLVIA WILLAMS PTA - 09/17/2021 12:59 EST Half-Way Goals Other PT LTG Grid Goal #1 [...] 09/23/2021 EST 09/23/2021 EST Goal Status : Goal met Goal met Goal met Date Met : 09/17/2021 EST 09/17/2021 EST 09/17/2021 EST SYLVIA WILLAMS, FURNACE INSTALLER HELPER - 09/17/2021 12:59 EST SYLVIA WILLAMS, FURNACE INSTALLER HELPER - 09/17/2021 12:59 EST SYLVIA WILLAMS, FURNACE INSTALLER HELPER - 09/17/2021 12:59 EST Treatment Note Subjective Comment : Pt agreeable to physical therapy. Patient's Response to Treatment : Good. Additional Objective Information : - chair to stand CGA with RWx - cues for proper hand placement - amb ~ 150' CGA with RWx - demonstrated slow pace, reciprocal gait, uneven candice, foot flat, narrow MACEY, no LOB - cues for heel toe walking, wider MACEY - pt educated on stair training, verbalized understanding - pt safely ascended/descended 1 step Miguel with RWx - stand pivot to sit in chair CGA with RWx - BLE ther ex x20 AROM/AAROM while UIC: LAQ, seated heel slides, ankle pumps, quad set, gluteal set, hip abduction, SAQ - cues for proper return of exercises Gait Trainin minutes Ther Ex: 12 minutes Assessment : Pt has met 3/3 acute therapy goals. She had some unsteadiness during gait training but no true LOB. Pt would benefit from rehab placement to improve LE strength, gait training, balance training, and maximize recovery from right anterior hip. Plan for Treatment : [place] [facility] [place] SYLVIA WILLAMS, FURNACE INSTALLER HELPER - 09/17/2021 12:59 EST Pain Assessment Pain Scaled Used : 0-10 Pain scale Pain Score Pre-Intervention : 0 SYLVIA WILLAMS PTA - 09/17/2021 12:59 EST Image 1 - Images currently included in the form version of this document have not been included in the text rendition version of the form. [place] PT Charges FURNACE INSTALLER HELPER PT Therap. Exercise 15 min-FURNACE INSTALLER HELPER : 1 Gait Training Each 15 Min-FURNACE INSTALLER HELPER : 1 SYLVIA WILLAMS, FURNACE INSTALLER HELPER - 09/17/2021 12:59 EST Electronically signed by Grace [facility] Conversion Guest Services Lead Cerner at 02/14/2023 9:24 AM CDT documented in this encounter Plan of Treatment Not on file documented as of this encounter Visit Diagnoses Not on filedocumented in this encounter Care Teams International Exchange Coordinator Relationship Specialty Start Date End Date Akhil Brown MD [address] [place] [phone] PCP - General Family Medicine 06/09/23 documented as of this encounter
--- OUTSIDE RECORDS SUMMARY | 2025-06-13 10:09 | XMS_ITS | Encounter Summary ---
Author Organization [employer] ([place], [place], [place], [place]) Address [address] [place] [address] Care Team Providers Care Portal Administrator Name Role Phone Akhil Brown MD Primary Care Provider [phone]- [phone] Encounter Details Date Type Department Care Team (Late st Contact Info) Description 09/17/2021 Transcribed Document [facility] [place] [address] [place] [address] ProviderNayeli MD [address] [place] [address] Social History Tobacco Use Types Packs/Day Years Used Date Smoking Tobacco: Never Assessed Comments Unknown Sex and Gender Information Value Date Recorded Sex Assigned at Not on file Legal Sex Female 3:37 PM CDT Gender Identity Not on file Sexual Orientation Not on file documented as of this encounter Miscellaneous Notes * Cerner Conversion Note - Nayeli Nava MD - 09/17/2021 9:34 AM AUTOMATIC RIVETING MACHINE OPERATOR Patient: KARINA WILSON Age: 75 years Sex: Female : 1945 Associated Diagnoses: Unilateral primary osteoarthritis, right hip; Status post total hip replacement, right; Right hip pain; Atrial fibrillation; Hypertension; Hyperlipidemia; Hypothyroid; At risk for sleep apnea; Memory deficit Author: ROBB GRACE MD-INT Basic Information awake alert comfortable, No chest pain or trouble breathing No nausea or vomiting No trouble with urination No BM Patient has no support at home and wants to go to rehab Review of Systems Constitutional: No fever, No chills. Eye: No discharge, No blurring, No double vision, No visual disturbances. Ear/Nose/Mouth/Throat: No nasal congestion, No sore throat. Respiratory: No shortness of breath, No cough. Cardiovascular: No chest pain, No palpitations. Gastrointestinal: No nausea, No vomiting. Genitourinary: No change in urine stream. Musculoskeletal: Negative. Integumentary: No rash, No pruritus. Neurologic: Alert and oriented X4. Health Status Allergies: Allergies (1) Active Reaction Benadryl hyper Current medications: (Selected) Inpatient Medications Ordered Ancef + Sodium Chloride 0.9% intravenous solution 50 mL: 1 Gram, IV Piggyback, Inj, 1-Time, infuse over 30 Minute(s), Start 09/16/21 11:00:00 EST, Stop 09/16/21 11:00:00 EST, 100 mL/Hr, Indication: Surgical Prophylaxis Benadryl: 25 mg, Oral, Tab, On-CALL, PRN for Other (See Comment), Routine, Start 09/16/21 13:04:00 EST, 09/16/21 13:04:00 EST Chloraseptic Menthol 1.4% topical spray: 5 Wilton, Oral, Wil[place], Q2H, PRN for Sore Throat, Routine, Start 09/16/21 13:04:00 EST Dextrose 5% in Lactated Ringers intravenous solution 1,000 mL: 1,000 mL, Bag Volume (mL) = 1,000, IntraVENous, start date 09/16/21 11:13:00 EST, Routine, mL/Hr100, 1.94, m2 Diovan: 320 mg, Oral, Tab, Daily, Start 09/17/21 9:00:00 EST Dulcolax Laxative: 10 mg, Rectal, Supp, Daily, PRN for Constipation, Routine, Start 09/16/21 13:04:00 EST, 09/16/21 13:04:00 EST DuoNeb 0.5 mg-2.5 mg/3 mL inhalation solution: 3 mL, Nebulized Inhalation, Inh, Q4H, PRN for Wheezing, Routine, Start 09/16/21 13:04:00 EST Effexor XR: 150 mg, Oral, XR Cap, Daily, Routine, Start 09/16/21 13:04:00 EST, 09/16/21 13:04:00 EST Flexeril: 5 mg, Oral, Tab, TID, PRN for Muscle Spasms, Start 09/16/21 13:13:00 EST HYDROmorphone: 0.5 mg, IV Push, Inj, Q3H, PRN for Pain (Severe 7-10), Routine, Start 09/16/21 11:13:00 EST, 09/16/21 11:13:00 EST Keflex: 500 mg, Oral, Cap, Q6H, order duration: 3 Day(s), Routine, Start 09/16/21 18:00:00 EST, Stop 09/19/21 17:59:00 EST, Indication: Surgical Prophylaxis Milk of Magnesia 8% oral suspension: 15 mL, Oral, Liquid, Q6H, PRN for Constipation, Routine, Start 09/16/21 13:04:00 EST Mylanta: 30 mL, Oral, Liquid, Q6H, PRN for Indigestion, Routine, Start 09/16/21 13:04:00 EST Normal Saline Flush: 10 mL, IV Push, Inj, Q12H, Routine, Start 09/16/21 11:13:00 EST Normal Saline Flush: 10 mL, IV Push, Inj, See Comment, PRN for Other (See Comment), Routine, Start 09/16/21 11:13:00 EST Phenergan: 12.5 mg, IV Push, Inj, Q6H, PRN for Nausea, Routine, Start 09/16/21 13:04:00 EST, 09/16/21 13:04:00 EST Phenergan: 12.5 mg, Oral, Tab, Q6H, PRN for Nausea, Routine, Start 09/16/21 13:04:00 EST, 09/16/21 13:04:00 EST Vitamin B12: 1,000 mcg, Oral, Tab, Daily, Routine, Start 09/16/21 13:04:00 EST, 09/16/21 13:04:00 EST Zofran: 4 mg, IV Push, Inj, Q4H, PRN for Nausea, Routine, Start 09/16/21 13:04:00 EST, 09/16/21 13:04:00 EST acetaminophen: 500 mg, Oral, Tab, Q6H, PRN for Pain (Mild 1-3), Routine, Start 09/16/21 11:13:00 EST, 09/16/21 11:13:00 EST aspirin: 81 mg, Oral, EC Tab, BID, Routine, Start 09/16/21 21:00:00 EST, 09/16/21 11:13:00 EST docusate calcium: 240 mg, Oral, Cap, Daily, PRN for Constipation, Routine, Start 09/16/21 13:04:00 EST, 09/16/21 13:04:00 EST gabapentin: 300 mg, Oral, Cap, At Bedtime, Routine, Start 09/16/21 21:00:00 EST, 09/16/21 11:13:00 EST hydroCHLOROthiazide: 12.5 mg, Oral, Tab, Daily, Start 09/17/21 9:00:00 EST ketorolac: IntraLesional, Inj, 1-Time, Start 09/16/21 14:00:00 EST, Stop 09/16/21 14:00:00 EST, 3000 mL/Hr, Infuse Over: 1 Minute(s) levothyroxine: 25 mcg, Oral, Tab, Daily, Routine, Start 09/17/21 6:30:00 EST, 09/16/21 13:04:00 EST ondansetron: 4 mg, Oral, Tab, Q6H, PRN for Nausea/Vomiting, Routine, Start 09/16/21 11:13:00 EST, 09/16/21 11:13:00 EST oxyCODONE: 10 mg, Oral, Tab, Q4H, PRN for Pain (Severe 7-10), Routine, Start 09/16/21 11:13:00 EST, 09/16/21 11:13:00 EST oxyCODONE: 5 mg, Oral, Tab, Q4H, PRN for Pain (Moderate 4-6), Routine, Start 09/16/21 11:13:00 EST, 09/16/21 11:13:00 EST promethazine: 12.5 mg, IV Push, Inj, Q6H, PRN for Nausea/Vomiting, Routine, Start 09/16/21 11:13:00 EST, 09/16/21 11:13:00 EST sotalol: 40 mg, Oral, Tab, BID, Routine, Start 09/16/21 20:00:00 EST, 09/16/21 13:04:00 EST traZODone: 50 mg, Oral, Tab, At Bedtime, PRN for Insomnia, Routine, Start 09/16/21 13:04:00 EST, 09/16/21 13:04:00 EST Pending Complete tranexamic acid: 1 Gram 10 mL, IV Piggyback, Inj, Q2HInt, order duration: 2 Time(s), STAT, Start 09/16/21 6:26:00 EST, Stop 09/16/21 8:26:00 EST, 220 mL/Hr, Infuse Over: 30 Minute(s), 09/16/21 6:26:00 EST Documented Medications Documented Effexor XR: 150 mg, Oral, Daily, 0 Refill(s) Namenda 10 mg oral tablet: 1 Tab, Oral, Tab, BID, # 60 Tab, 0 Refill(s) Vitamin B12 1000 mcg oral tablet: 1 Tab, Oral, Daily, 0 Refill(s) hydroCHLOROthiazide-valsartan 12.5 mg-320 mg oral tablet: 1 Tab, Oral, Tab, Daily, # 90 Tab, 0 Refill(s) levothyroxine: 25 mcg, Oral, Daily, 0 Refill(s) meloxicam 15 mg oral tablet: 1 Tab, Oral, Daily, 0 Refill(s) sotalol: 40 mg, Oral, BID, 0 Refill(s), Medications (32) Active Scheduled: (12) #NaCl 0.9% *FLUSH* inj 10 mL 10 mL, IV Push, Q12H aspirin EC 81 mg tab 81 mg 1 Tab, Oral, BID ceFAZolin *ADV* + NaCl 0.9% *ADV* 50 mL 1 Gram, IV Piggyback, 1-Time cephalexin 250 mg cap 500 mg 2 Cap, Oral, Q6H cyanocobalamin 1,000 mcg tab 1,000 mcg 1 Tab, Oral, Daily gabapentin 300 mg cap 300 mg 1 Cap, Oral, At Bedtime hydrochlorothiazide 25 mg tab 12.5 mg 0.5 Tab, Oral, Daily ketorolac 30 mg 1 mL, IntraLesional, 1-Time levothyroxine 25 mcg tab 25 mcg 1 Tab, Oral, Daily sotalol 80 mg tab 40 mg 0.5 Tab, Oral, BID valsartan 160 mg tab 320 mg 2 Tab, Oral, Daily venlafaxine XR 150 mg cap 150 mg 1 Cap, Oral, Daily Continuous: (1) D5/LR 1,000 mL 1,000 mL, IntraVENous PRN: (19) #NaCl 0.9% *FLUSH* inj 10 mL 10 mL, IV Push, See Comment acetaminophen 500 mg tab 500 mg 1 Tab, Oral, Q6H al hydrox/mag hydrox/simeth 30 mL liq 30 mL, Oral, Q6H albuterol-ipratropium inh 3 mL 3 mL, Nebulized Inhalation, Q4H bisacodyl 10 mg supp 10 mg 1 Supp, Rectal, Daily cyclobenzaprine 10 mg tab 5 mg 0.5 Tab, Oral, TID diphenhydrAMINE 25 mg tab 25 mg 1 Tab, Oral, On-CALL docusate calcium 240 mg cap 240 mg 1 Cap, Oral, Daily HYDROmorphone 1 mg/1 mL inj 0.5 mg 0.5 mL, IV Push, Q3H magnesium hydroxide 8% liq 30 mL 15 mL, Oral, Q6H ondansetron 4 mg tab 4 mg 1 Tab, Oral, Q6H ondansetron 4 mg/2 mL inj 4 mg 2 mL, IV Push, Q4H oxyCODONE 5 mg tab 5 mg 1 Tab, Oral, Q4H oxyCODONE 5 mg tab 10 mg 2 Tab, Oral, Q4H phenol 1.4% throat spray 5 Wil[place], Oral, Q2H promethazine 25 mg tab 12.5 mg 0.5 Tab, Oral, Q6H promethazine 25 mg/1 mL inj 12.5 mg 0.5 mL, IV Push, Q6H promethazine 25 mg/1 mL inj 12.5 mg 0.5 mL, IV Push, Q6H traZODone 50 mg tab 50 mg 1 Tab, Oral, At Bedtime Problem list: Active Problems (13) At risk for sleep apnea At risk for sleep apnea Atrial fibrillation Depression Hyperlipidemia Hypertension Hypothyroid Memory deficit Osteoarthritis of hip Right hip pain Seasonal allergies Status post total hip replacement, right Unilateral primary osteoarthritis, right hip Physical Examination VS/Measurements Vital Measurements 09/17/2021 5:51 EST Systolic Blood Pressure 125 mmHg Diastolic Blood Pressure 52 mmHg LOW Mean Arterial Pressure (MAP)-BMDI 68 Temperature Source Oral Temperature Mode Fahrenheit Heart Rate Monitored 67 bpm Oxygen Saturation 96 % Oxygen Therapy Mode Room air General: Alert and oriented, No acute distress. Eye: Pupils are equal, round and reactive to light, Extraocular movements are intact. HENT: Oral mucosa is moist. Neck: Supple, No carotid bruit, No jugular venous distention, No lymphadenopathy, No thyromegaly. Respiratory: Lungs are clear to auscultation, Breath sounds are equal. Cardiovascular: Normal rate, Regular rhythm, No murmur. Gastrointestinal: Soft, Non-tender, Normal bowel sounds, No organomegaly. Genitourinary: No costovertebral angle tenderness, No inguinal tenderness. Lymphatics: No lymphadenopathy neck, axilla, groin. Musculoskeletal: Normal strength, No swelling. Integumentary: Warm, Intact, No rash, WOUND STABLE. Neurologic: Alert, Oriented, No focal deficits. Psychiatric: Cooperative, Appropriate mood & affect. Review / Management Results review: All Results 09/17/2021 3:46 EST Sodium Level 143 mmol/L Potassium Level 3.9 mmol/L Chloride Level 110 mmol/L Carbon Dioxide Level 28 mmol/L Anion Gap 9 Glucose Level 103 mg/dL Blood Urea Nitrogen 13 mg/dL Creatinine Level 0.75 mg/dL eGFR >60 mL/min/1.73m2 eGFR NonAfrican >60 mL/min/1.73m2 Bun/Creatinine 17.3 Calcium Level 8.4 mg/dL LOW Hgb 9.7 Gram/dL LOW Hct 29.6 % LOW . Impression and Plan Diagnosis Unilateral primary osteoarthritis, right hip - Admitting, Medical. Status post total hip replacement, right - Admitting, Medical. Right hip pain - Admitting, Medical. Atrial fibrillation - Discharge, Medical. Hypertension - Discharge, Medical. Hyperlipidemia - Discharge, Medical. Hypothyroid - Discharge, Medical. At risk for sleep apnea - Discharge, Medical. Memory deficit - Discharge, Medical. Course: Plan/ cont. current care, pt/ot, encourage oral fluid intake, nutritional support, encourage use of respirometer, motoring blood pressure, renal function, blood glucose, and urine output. Controlled. DVT prophylax. Close monitoring fluid and electrolytes. Fall risk precautions. Sleep apnea precautions. Stress ulcer prophylaxis. Case management for rehab referral.. documented in this encounter Plan of Treatment Not on file documented as of this encounter Visit Diagnoses Not on filedocumented in this encounter Care Teams Portal Administrator Relationship Specialty Start Date End Date Akhil Brown MD [address] [place] [phone] PCP - General Family Medicine 06/09/23 documented as of this encounter
--- OUTSIDE RECORDS SUMMARY | 2025-06-13 10:09 | XMS_ITS | Encounter Summary ---
Author Organization [employer] ([place], [place], [place], [place]) Address [address] [place] [address] Care Team Providers Care Fountain Worker Name Role Phone Akhil Brown MD Primary Care Provider +1- [phone] Encounter Details Date Type Department Care Team (Late st Contact Info) Description 09/16/2021 Transcribed Document [facility] [place] [facility] [place] [address] ProviderNayeli MD [address] [place] [address] Social History Tobacco Use Types Packs/Day Years Used Date Smoking Tobacco: Never Assessed Comments Unknown Sex and Gender Information Value Date Recorded Sex Assigned at Not on file Legal Sex Female 3:37 PM CDT Gender Identity Not on file Sexual Orientation Not on file documented as of this encounter Miscellaneous Notes * Cerner Conversion Note - Nayeli Nava MD - 09/16/2021 12:00 PM LIGHT RAIL OPERATOR WALTER Main OR PreOp Summary Primary Physician: ELLIOT LOPEZ JR, JR, MD-ORT Finalized Date/Time: 09/16/21 07:24:38 Pt. Name: KARINA WILSON /Sex: 1945 Female Med Rec #: [id number] Physician: ELLIOT LOPEZ JR, JR, MD-ORT Financial #: [id number] Pt. Type: O Room/Bed: [facility] Admit/Disch: 09/16/21 04:46:00 - Institution: [facility] [place] PreOp Case Times Entry 1 In Preop 09/16/21 05:10:00 Ready for Holding n/a Room Patient Ready for 09/16/21 07:23:00 Surgery Patient Out of Preop 09/16/21 07:23:00 Patient Out of 09/16/21 07:23:00 Holding Room Last Modified By: MITCHELL ORTIZ RN 09/16/21 07:23:19 Finalized By: MITCHELL ORTIZ, RN Document Signatures Signed By: MITCHELL ORTIZ RN 09/16/21 07:23 MITCHELL ORTIZ RN 09/16/21 07:24 Unfinalized History Date/Time Username Reason for Unfinalizing Freetext Reason for Unfinalizing 09/16/21 07:24 [email or web address] Correct Documentation Electronically signed by Grace [facility] Conversion Accounts Payable Accountant Cerner at 02/14/2023 9:29 AM CDT documented in this encounter Plan of Treatment Not on file documented as of this encounter Visit Diagnoses Not on filedocumented in this encounter Care Teams Fountain Worker Relationship Specialty Start Date End Date Akhil Brown MD [address] [place] [phone] PCP - General Family Medicine 06/09/23 documented as of this encounter
--- OUTSIDE RECORDS SUMMARY | 2025-06-13 10:09 | XMS_ITS | Encounter Summary ---
Author Organization [employer] ([place], [place], [place], [place]) Address [address] [place] [address] Care Team Providers Care Paper Mill Superintendent Name Role Phone Akhil Brown MD Primary Care Provider [phone]- [phone] Encounter Details Date Type Department Care Team (Late st Contact Info) Description 09/17/2021 Transcribed Document [facility] [place] [facility] [place] [address] ProviderNayeli MD [address] [place] [id number] Social History Tobacco Use Types Packs/Day Years Used Date Smoking Tobacco: Never Assessed Comments Unknown Sex and Gender Information Value Date Recorded Sex Assigned at Not on file Legal Sex Female 3:37 PM CDT Gender Identity Not on file Sexual Orientation Not on file documented as of this encounter Miscellaneous Notes * Cerner Conversion Note - Nayeli Nava MD - 09/17/2021 11:30 AM FINANCIAL WELLNESS COACH Patient Education Materials Follows: What to expect after the Procedure: After the procedure, it is common to have: ?? Pain and swelling. ?? A small amount of blood or clear fluid coming from your incision for up to 7 days ?? It is normal to have a moderate amount of bleeding from the site of the drain that was pulled on the morning after surgery. You can hold pressure on the area for 3-5 minutes and cover with a bandage as needed. Diet: ?? Resume usual diet ?? No alcoholic beverages while taking pain medication ?? Drink 8-10 glasses of water a day to prevent constipation from pain medication ?? Increase fiber to help prevent constipation. Straining can cause increased pressure and pain in your incision area ?? Increase protein to promote healing Driving: ?? Do not drive until your health care provider approves. Ask your health care provider when it is safe to drive if you have an immobilizer on your knee. ?? Do not drive or operate heavy machinery while taking prescription pain medicine. ?? Do not drive for 24 hours if you received a sedative. Activity: ?? Do not lift anything that is heavier than 10 lb (4.5 kg) until your health care provider approves. ?? No strenuous activity ?? Avoid high-impact activities, including running, jumping rope, and jumping jacks. ?? Avoid sitting for a long time without moving. Get up and move around at least every few hours. ?? Keep legs elevated while seated and place surgery leg on 2-3 pillows, this will decrease swelling ?? Continue using walker until cleared by physical therapy Bathing: ?? Do not take baths, swim, or use a hot tub for one month after surgery. ?? May shower on the third day after surgery by covering incision with Glad Brand Press and Seal saran wrap. After showering, dry off completely BEFORE removing saran wrap. ?? Use Press and Seal saran wrap to shower for one month after surgery ?? You must be seated to shower until you are no longer using the walker Other: ?? Use ice therapy for 20-30 minutes at a time and leave off for 20-30 minutes at a time. Always keep a towel or cloth between the ice pack and your skin ?? Continue to use Incentive Spirometer 10 times an hour while awake for one month to help prevent pneumonia ?? Leave Mepilex dressing on until follow-up appointment. ?? ASA 81mg twice a day for 45 days. Contact a health care provider if: ?? You have more redness, swelling, or pain around your incision. ?? You have more fluid or blood coming from your incision. ?? Your incision or drain site feels warm to the touch. ?? You have pus or a bad smell coming from your incision. ?? You have a fever. ?? Your incision breaks open after your health care provider removes your sutures, skin glue, or adhesive tape. ?? Your prosthesis feels loose. ?? You have knee pain that does not go away. Get help right away if you have: ?? Pain or swelling in your calf or thigh ?? Shortness of breath or diffiulty breathing ?? chest pain DVT: Blood Clot Blood clots are a common risk after an orthopedic surgery Symptoms: ?? Swelling of your leg or arm, especially if one side is much worse. ?? Warmth and redness of your leg or arm, especially if one side is much worse. ?? Pain in your arm or leg. If the clot is in your leg, symptoms may be more noticeable or worse when you stand or walk. ?? A feeling of pins and needles, if the clot is in the arm. The symptoms of a DVT that has traveled to the lungs (pulmonary embolism, PE) usually start suddenly and include: ?? Shortness of breath while active or at rest. ?? Coughing or coughing up blood or blood-tinged mucus. ?? Chest pain that is often worse with deep breaths. ?? Rapid or irregular heartbeat. ?? Feeling light-headed or dizzy. ?? Fainting. ?? Feeling anxious. ?? Sweating. There may also be pain and swelling in a leg if that is where the blood clot started. How is this prevented? ?? Exercise regularly. For at least 30 minutes every day, engage in: -Activity that involves moving your arms and legs. -Activity that encourages good blood flow through your body by increasing your heart rate. ?? Exercise your arms and legs every hour during long-distance travel (over 4 hours). ?? Drink plenty of water and avoid drinking alcohol while traveling. ?? Avoid sitting or lying in bed for long periods of time without moving your legs. ?? Maintain a weight that is appropriate for your height. Ask your health care provider what weight is healthy for you. ?? If you are a woman who is over 35 years of age, avoid unnecessary use of medicines that contain estrogen. These include control pills. ?? Do not smoke, especially if you take estrogen medicines. If you need help quitting, ask your health care provider. ?? Wear compression stockings (if told by your health care provider) to help prevent blood clots from forming. High Fiber/High Protein Diet High fiber foods: To prevent constipation Grains Whole-grain breads. Multigrain cereal. Oats and oatmeal. Brown rice. Barley. Bulgur wheat. Millet. Bran muffins. Popcorn. [place] wafer crackers. Vegetables Sweet potatoes. Spinach. Kale. Artichokes. Cabbage. Broccoli. Green peas. Carrots. Squash. Fruits Berries. Pears. Apples. Oranges. Avocados. Prunes and raisins. Dried figs. Meats and Other Protein Sources [place], kidney, simon, and soy beans. Split peas. Lentils. Nuts and seeds. Dairy Fiber-fortified yogurt. Beverages Fiber-fortified soy milk. Fiber-fortified orange juice. Other Fiber bars. High-protein foods: To promote healing High-protein foods contain 4 grams (4 g) or more of protein per serving. They include: ?? Beef, ground sirloin (cooked) ??? 3 oz have 24 g of protein. ?? Cheese (hard) ??? 1 oz has 7 g of protein. ?? Chicken breast, boneless and skinless (cooked) ??? 3 oz have 13.4 g of protein. ?? Cottage cheese ??? 1/2 cup has 13.4 g of protein. ?? Egg ??? 1 egg has 6 g of protein. ?? Fish, filet (cooked) ??? 1 oz has 6???7 g of protein. ?? Garbanzo beans (canned or cooked) ??? 1/2 cup has 6???7 g of protein. ?? Kidney beans (canned or cooked) ??? 1/2 cup has 6???7 g of protein. ?? Brito (cooked) ??? 3 oz has 24 g of protein. ?? Milk ??? 1 cup (8 oz) has 8 g of protein. ?? Nuts (peanuts, pistachios, almonds) ??? 1 oz has 6 g of protein. ?? Peanut butter ??? 1 oz has 7???8 g of protein. ?? Pork tenderloin (cooked) ??? 3 oz has 18.4 g of protein. ?? Pumpkin seeds ??? 1 oz has 8.5 g of protein. ?? Soybeans (roasted) ??? 1 oz has 8 g of protein. ?? Soybeans (cooked) ??? 1/2 cup has 11 g of protein. ?? Soy milk ??? 1 cup (8 oz) has 5???10 g of protein. ?? Soy or vegetable randy ??? 1 randy has 11 g of protein. ?? [place] seeds ??? 1 oz has 5.5 g of protein. ?? Tofu (firm) ??? 1/2 cup has 20 g of protein. ?? Tuna (canned in water) ??? 3 oz has 20 g of protein. ?? Yogurt ??? 6 oz has 8 g of protein. Fall Prevention ?? Use night lights. ?? Install grab bars by the toilet and in the tub and shower. Do not use towel bars as grab bars. ?? Use non-skid mats or decals on the floor of the tub or shower. ?? If you need to sit down while you are in the shower, use a plastic, non-slip stool. ?? Keep the floor dry. Immediately clean up any water that spills on the floor. ?? Remove soap buildup in the tub or shower on a regular basis. ?? Remove throw rugs and other tripping hazards from the floor. ?? Place frequently used items in [id number] places ?? Keep electrical cables out of the way. ?? Do not leave any items on the stairs. ?? Make sure that there are handrails on both sides of the stairs. Fix handrails that are broken or loose. Make sure that handrails are as long as the stairways. ?? Check any carpeting to make sure that it is firmly attached to the stairs. Fix any carpet that is loose or worn. ?? Avoid having throw rugs at the top or bottom of stairways, or secure the rugs with carpet tape to prevent them from moving. ?? Wear closed-toe shoes that fit well and support your feet. Wear shoes that have rubber soles or low heels. ?? Use mobility aids as needed, such as canes, walkers, scooters, and crutches. ?? Turn on lights if it is dark. Replace any light bulbs that burn out. ?? Set up furniture so that there are clear paths. Keep the furniture in the same spot. ?? Be aware of any and all pets. ?? Review your medicines with your healthcare provider. Some medicines can cause dizziness or changes in blood pressure, which increase your risk of falling. Hand Washing You should wash your hands whenever you think they are dirty. You should also wash your hands: ??? After: ?? Working or playing outside. ?? Touching an animal or its toys or leash. ?? Handling livestock. ?? Using the bathroom. ?? Using household bogger operator or toxic chemicals. ?? Touching or taking out the garbage. ?? Touching anything dirty around your home. ?? Handling soiled clothes or rags. ?? Taking care of a sick child. This includes touching used tissues, toys, and clothes. ?? Sneezing, coughing, or blowing your nose. ?? Using public transportation. ?? Shaking hands. ?? Using a phone, including your mobile phone. ?? Touching money. ??? Before and after: ?? Preparing food. ?? Feeding a baby or young child. ?? Eating. ?? Visiting or taking care of someone who is sick. ?? Changing a diaper. ?? Changing a bandage (dressing) or taking care of an injury or wound. ?? Giving or taking medicine. If soap and clean water are not available, use an alcohol-based wipe, spray, or hand gel. Use a hand-sanitizing agent that contains at least 60% alcohol. If you are preparing food, hand sanitizers are not recommended as a substitute for hand washing. Walker Use To Walk With a Front-Wheeled Walker: 1. Slide your front-wheeled walker one step-length in front of you. Your toes should be farther forward than the back legs of your walker. 2. Hold on to the walker for support, and step your weaker (surgery) leg into the middle of the walker. 3. Step your stronger leg forward to land next to your weaker leg. 4. Repeat the process for each step. ?? Always keep both feet within the width of the walker's legs or wheels. ?? When using your walker, you should not feel like you need to lean forward or to the side to keep your hands on the handgrips. ?? Make sure you are following any weight-bearing instructions that your health care provider has given you. ?? Be careful not to let the walker get too far ahead of you as you walk. ?? If your walker does not glide well over carpet, consider cutting an X into two tennis balls and placing the balls over the back legs of your walker. How to use a walker on a curb or step To Use a Walker to Step Up: 1. Put all four legs of the walker on the curb or step. 2. Get your feet as close to the curb or step as you can. 3. Test the steadiness of the walker by pressing down on the handgrips. 4. If the walker is steady, press down on it with your hands as you step up with your stronger leg. 5. Step up with your weaker leg. To Use a Walker to Step Down: 1. Put all four legs of the walker on the surface that is lower than the curb or step. 2. Get your feet as close to the curb or step as you can. 3. Test the steadiness of the walker by pressing down on the handgrips. 4. If the walker is steady, press down on it with your hands as you step down with your weaker leg. 5. Step down with your stronger leg. Pharmacology General Anesthesia, Adult, Care After This sheet gives you information about how to care for yourself after your procedure. Your health care provider may also give you more specific instructions. If you have problems or questions, contact your health care provider. What can I expect after the procedure? After the procedure, the following side effects are common: ??? Pain or discomfort at the IV site. ??? Nausea. ??? Vomiting. ??? Sore throat. ??? Trouble concentrating. ??? Feeling cold or chills. ??? Weak or tired. ??? Sleepiness and fatigue. ??? Soreness and body aches. These side effects can affect parts of the body that were not involved in surgery. Follow these instructions at home: For at least 24 hours after the procedure: ??? Have a responsible adult stay with you. It is important to have someone help care for you until you are awake and alert. ??? Rest as needed. ??? Do not: ? Participate in activities in which you could fall or become injured. ? Drive. ? Use heavy machinery. ? Drink alcohol. ? Take sleeping pills or medicines that cause drowsiness. ? Make important decisions or sign legal documents. ? Take care of children on your own. Eating and drinking ??? Follow any instructions from your health care provider about eating or drinking restrictions. ??? When you feel hungry, start by eating small amounts of foods that are soft and easy to digest (bland), such as toast. Gradually return to your regular diet. ??? Drink enough fluid to keep your urine pale yellow. ??? If you vomit, rehydrate by drinking water, juice, or clear broth. General instructions ??? If you have sleep apnea, surgery and certain medicines can increase your risk for breathing problems. Follow instructions from your health care provider about wearing your sleep device: ? Anytime you are sleeping, including during daytime naps. ? While taking prescription pain medicines, sleeping medicines, or medicines that make you drowsy. ??? Return to your normal activities as told by your health care provider. Ask your health care provider what activities are safe for you. ??? Take ktea-mfw-kwugszu and prescription medicines only as told by your health care provider. ??? If you smoke, do not smoke without supervision. ??? Keep all follow-up visits as told by your health care provider. This is important. Contact a health care provider if: ??? You have nausea or vomiting that does not get better with medicine. ??? You cannot eat or drink without vomiting. ??? You have pain that does not get better with medicine. ??? You are unable to pass urine. ??? You develop a skin rash. ??? You have a fever. ??? You have redness around your IV site that gets worse. Get help right away if: ??? You have difficulty breathing. ??? You have chest pain. ??? You have blood in your urine or stool, or you vomit blood. Summary ??? After the procedure, it is common to have a sore throat or nausea. It is also common to feel tired. ??? Have a responsible adult stay with you for the first 24 hours after general anesthesia. It is important to have someone help care for you until you are awake and alert. ??? When you feel hungry, start by eating small amounts of foods that are soft and easy to digest (bland), such as toast. Gradually return to your regular diet. ??? Drink enough fluid to keep your urine pale yellow. ??? Return to your normal activities as told by your health care provider. Ask your health care provider what activities are safe for you. This information is not intended to replace advice given to you by your health care provider. Make sure you discuss any questions you have with your health care provider. Document Revised: 10/20/2018 Document Reviewed: 06/02/2018 [employer] Patient Education ? 2020 [employer]. documented in this encounter Plan of Treatment Not on file documented as of this encounter Visit Diagnoses Not on filedocumented in this encounter Care Teams Paper Mill Superintendent Relationship Specialty Start Date End Date Akhil Brown MD [address] [place] [id number] PCP - General Family Medicine 06/09/23 documented as of this encounter
--- OUTSIDE RECORDS SUMMARY | 2025-06-13 10:09 | XMS_ITS | Encounter Summary ---
Author Organization [employer] ([place], [place], [place], [place]) Address [address] [place] [address] Care Team Providers Care Plumbing Technician Name Role Phone Tatum Brown MD Primary Care Provider [phone]- [phone] Encounter Details Date Type Department Care Team (Late st Contact Info) Description 09/17/2021 Transcribed Document [facility] [place] [address] ProviderNayeli MD [address] [place] [id number] Social History Tobacco Use Types Packs/Day Years Used Date Smoking Tobacco: Never Assessed Comments Unknown Sex and Gender Information Value Date Recorded Sex Assigned at Not on file Legal Sex Female 3:37 PM CDT Gender Identity Not on file Sexual Orientation Not on file documented as of this encounter Miscellaneous Notes * Cerner Conversion Note - Nayeli Nava MD - 09/17/2021 4:42 PM 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 Nursing Discharge Summary Entered On: 09/17/2021 16:45 EST Performed On: 09/17/2021 16:42 EST by TATUM FOFANA RN Discharge Documentation Discharge Date/Time : 09/17/2021 15:55 EST Patient Disposition, General : Discharge Discharge To : Home with ambulatory/outpatient follow-up Mode Of Departure, General Discharge : Wheelchair with adult, Other: Caliber transport Accompanied By, Discharge : Other: caliber transporter IV Discontinued : Yes Personal Belongings With Patient : Yes Pt's Own Supply of Medications Returned : No patient supply of medications to return Prescriptions Given to Patient : Electronically sent Medications Given to Patient : No Discharge Instructions Reviewed With, Opportunity For Questions Given : Other: Report given to Radha at [employer]. Patient Education Completed : Yes Teaching Method : Explanation, Printed materials Teaching Evaluation : Verbalizes understanding, Other: Report given to Radha at [employer]. TATUM FOFANA RN - 09/17/2021 16:42 EST Electronically signed by [facility] Conversion [employer] Cerner at 02/14/2023 9:20 AM CDT documented in this encounter Plan of Treatment Not on file documented as of this encounter Visit Diagnoses Not on filedocumented in this encounter Care Teams Plumbing Technician Relationship Specialty Start Date End Date Tatum Brown MD [address] [place] [id number] PCP - General Family Medicine 06/09/23 documented as of this encounter
--- OUTSIDE RECORDS SUMMARY | 2025-06-13 10:09 | XMS_ITS | Encounter Summary ---
Author Organization [employer] ([place], [place], [place], [place]) Address [address] [place] [address] Care Team Providers Care Bicycle I Assembler Name Role Phone Akhil Brown MD Primary Care Provider [phone]- [phone] Encounter Details Date Type Department Care Team (Late st Contact Info) Description 09/16/2021 Transcribed Document [facility] Family Medicine [address] [place] [id number] ProviderNayeli MD [address] [place] [id number] Social History Tobacco Use Types Packs/Day Years Used Date Smoking Tobacco: Never Assessed Comments Unknown Sex and Gender Information Value Date Recorded Sex Assigned at Not on file Legal Sex Female 3:37 PM CDT Gender Identity Not on file Sexual Orientation Not on file documented as of this encounter Miscellaneous Notes * Cerner Conversion Note - Nayeli Nava MD - 09/16/2021 8:00 AM SHELL WORKER W[facility]TER Main OR IntraOp Summary Primary Physician: ELLIOT LOPEZ JR, JR, MD-ORT Finalized Date/Time: 09/17/21 08:34:00 Pt. Name: KARINA HENDRICKS /Sex: 1945 Female Med Rec #: [id number] Physician: ELLIOT LOPEZ JR, JR, MD-ORT Financial #: [id number] Pt. Type: O Room/Bed: [facility] Admit/Disch: 09/16/21 04:46:00 - Institution: [facility] IntraOp Case Attendance Entry 1 Entry 2 Entry 3 Case Attendee ELLIOT LOPEZ JR JR, RENÉ CHRISTINE, ANA BLAIR, RN -ORT Role Performed Surgeon/Proceduralist, EQUIPMENT SERVICE ASSOCIATE/Nurse Copier Field Service Technician Photostatic Copy Maker, First First Time In 09/16/21 07:26:00 09/16/21 07:26:00 09/16/21 07:26:00 Time Out 09/16/21 09:41:00 09/16/21 09:41:00 09/16/21 09:41:00 Procedure Hip Total Anterior Hip Total Anterior Hip Total Anterior Approach Approach Approach Other Attendee Superficial Wound Closed By: Last Modified By: ANA CALIX RN LONGSWORTH, GARY, ANA MEHTA RN 09/16/21 09:41:28 09/16/21 09:41:28 09/16/21 09:41:28 Entry 4 Entry 5 Entry 6 Case Attendee JAZMIN CMKAY, ST Zabala, ST Suhail OTHER, ATTENDEE #1 Role Performed Scrub, First Scrub, Second Vendor Time In 09/16/21 07:26:00 09/16/21 07:26:00 09/16/21 07:26:00 Time Out 09/16/21 09:41:00 09/16/21 09:41:00 09/16/21 09:41:00 Procedure Hip Total Anterior Hip Total Anterior Hip Total Anterior Approach Approach Approach Other Attendee AJIT ROGERS Superficial Wound Closed By: Last Modified By: ANA CALIX, ANA MEHTA, ANA MEHTA RN 09/16/21 09:41:28 09/16/21 09:41:28 09/16/21 09:41:28 Entry 7 Entry 8 Entry 9 Case Attendee OTHER, ATTENDEE #2 KAMALJIT CARLSON PA-C Schultz, Morgan, CORPORATE MEETING PLANNER Role Performed [facility] Product Specialist Physician elementary assistant principal Ict Help Desk Officer Time In 09/16/21 07:26:00 09/16/21 07:26:00 09/16/21 07:35:00 Time Out 09/16/21 09:41:00 09/16/21 09:41:00 09/16/21 09:41:00 Procedure Hip Total Anterior Hip Total Anterior Hip Total Anterior Approach Approach Approach Other Attendee SHANNON HURLEY Superficial Wound Closed By: Last Modified By: ANA CALIX, ANA MEHTA, RN ANA CALIX, CHECO 09/16/21 09:41:28 09/16/21 09:41:28 09/16/21 09:41:28 Entry 10 Case Attendee OTHER, ATTENDEE #3 Role Performed Vendor Time In 09/16/21 07:26:00 Time Out 09/16/21 09:41:00 Procedure Hip Total Anterior Approach Other Attendee [facility] Superficial Wound Closed By: Last Modified By: ANA CALIX RN 09/16/21 09:41:28 [facility] IntraOp Case Attendance Audit 09/16/21 09:41:28 Rn Review: VANESSA Modifier: OSMANYGA 1 <+> Time Out 1 <*> Procedure Hip Total Anterior Approach 2 <+> Time Out 2 <*> Procedure Hip Total Anterior Approach 3 <+> Time Out 3 <*> Procedure Hip Total Anterior Approach 4 <+> Time Out 4 <*> Procedure Hip Total Anterior Approach 5 <+> Time Out 5 <*> Procedure Hip Total Anterior Approach 6 <+> Time Out 6 <*> Procedure Hip Total Anterior Approach 7 <+> Time Out 7 <*> Procedure Hip Total Anterior Approach 8 <+> Time Out 8 <*> Procedure Hip Total Anterior Approach 9 <+> Time Out 9 <*> Procedure Hip Total Anterior Approach 10 <+> Time Out 10 <*> Procedure Hip Total Anterior Approach 09/16/21 08:15:18 Rn Review: VANESSA Modifier: OSMANYGA 1 <+> Time In 1 <*> Procedure Hip Total Anterior Approach 2 <+> Time In 2 <*> Procedure Hip Total Anterior Approach 3 <+> Time In 3 <*> Procedure Hip Total Anterior Approach 4 <+> Time In 4 <*> Procedure Hip Total Anterior Approach 5 <+> Time In 5 <*> Procedure Hip Total Anterior Approach 6 <+> Time In 6 <*> Procedure Hip Total Anterior Approach 7 <+> Time In 7 <*> Procedure Hip Total Anterior Approach 8 <+> Time In 8 <*> Procedure Hip Total Anterior Approach <+> 9 Case Attendee <+> 9 Role Performed <+> 9 Time In <+> 9 Procedure <+> 10 Case Attendee <+> 10 Role Performed <+> 10 Time In <+> 10 Procedure <+> 10 Other Attendee 09/16/21 07:11:25 Rn Review: LONGGA Modifier: LONGGA 7 <*> Procedure Hip Total Anterior Approach 7 <*> Other Attendee JOHANNA MARTINEZ 09/16/21 07:08:28 Rn Review: LONGGA Modifier: LONGGA <+> 1 Procedure 2 <*> Procedure Hip Total Anterior Approach 3 <*> Procedure Hip Total Anterior Approach 4 <*> Procedure Hip Total Anterior Approach 5 <*> Procedure Hip Total Anterior Approach 6 <*> Procedure Hip Total Anterior Approach 7 <*> Procedure Hip Total Anterior Approach 8 <*> Procedure Hip Total Anterior Approach 09/16/21 07:07:02 Rn Review: LONGGA Modifier: LONGGA 1 <*> Case Attendee ELLIOT LOPEZ JR, JR, MD-ORT 1 <*> Role Performed Surgeon/Proceduralist, First 2 <*> Case Attendee RENÉ CHRISTINE NA 2 <*> Role Performed EQUIPMENT SERVICE ASSOCIATE/Nurse Copier Field Service Technician 2 <*> Procedure Hip Total Anterior Approach 3 <*> Case Attendee ANA CALIX, CHECO 3 <*> Role Performed Photostatic Copy Maker, First 3 <*> Procedure Hip Total Anterior Approach Entry 4 was deleted. Higher numbered entries shifted one position to fill the gap. <-> 4 Case Attendee Jonathan Mathur, AYALA/PROTOZOOLOGY TEACHER <-> 4 Role Performed Training Administrator, First <-> 4 Procedure Hip Total Anterior Approach 5 <*> Case Attendee JAZMIN MCKAY ST 5 <*> Role Performed Scrub, First 5 <*> Procedure Hip Total Anterior Approach 6 <*> Case Attendee Suhail Zabala ST 6 <*> Role Performed Scrub, Second 6 <*> Procedure Hip Total Anterior Approach 6 <+> Other Attendee 7 <*> Case Attendee OTHER, ATTENDEE #1 7 <*> Role Performed Vendor 7 <*> Procedure Hip Total Anterior Approach 7 <*> Other Attendee AJIT ROGERS 09/16/21 07:05:12 Rn Review: LONGGA Modifier: LONGGA <+> 7 Role Performed <+> 7 Procedure <+> 7 Other Attendee <+> 8 Case Attendee <+> 8 Role Performed <+> 8 Procedure <+> 8 Other Attendee [facility] IntraOp Case Times Entry 1 Patient In Room Time 09/16/21 07:26:00 Out Room Time 09/16/21 09:41:00 Anesthesia Start Time 09/16/21 07:26:00 Stop Time 09/16/21 09:41:00 Anesthesia Ready 09/16/21 07:26:00 Surgery / Procedure Times Start Time 09/16/21 08:00:00 Stop Time 09/16/21 09:34:00 Last Modified By: ANA CALIX RN 09/16/21 09:41:23 [facility] IntraOp Case Times Audit 09/16/21 09:41:23 Rn Review: LONGGA Modifier: LONGGA <+> 1 Out Room Time <+> 1 Stop Time <+> 1 Stop Time 09/16/21 08:11:49 Rn Review: LONGGA Modifier: LONGGA <+> 1 Start Time [facility] IntraOp Cautery Entry 1 ESU Identification Cautery Type Monopolar ESU ID Number [id number] ID Type Hospital Number Cautery Settings Cut Setting 70 Coag Setting 70 ESU Grounding Pad Ground Pad Type Adult Grounding Pad Site Left thigh Grounding Pad ANA CALIX RN Applied By Grounding Pad Site Intact Skin Condition Before Cautery Grounding Pad Site Unchanged Skin Condition After Cautery Last Modified By: ANA CALIX RN 09/16/21 08:15:44 [facility] IntraOp Communication Entry 1 Communication To Family/Significant other Comment PROCEDURE STARTING Communication By ANA CALIX RN Date and Time 09/16/21 08:09:00 Last Modified By: ANA CALIX RN 09/16/21 08:16:07 [facility] IntraOp Counts Verification Entry 1 Procedure Hip Total Anterior Approach Count Info Count Type Sponge, Sharps Counts Verification Baseline/pre-procedure Sequence Count Results Correct, surgeon notified Counts Performed By Count Performed By Suhail Zabala ST (Scrub) Count Performed By ANA CALIX, CHECO (RN) Last Modified By: ANA CALIX RN 09/16/21 08:16:24 [facility] IntraOp Counts Final Entry 1 Procedure Hip Total Anterior Approach Final Count Info Count Type Sponge, Sharps Counts Verification Skin Closure/end of Sequence procedure Count Results Correct, surgeon notified Counts Performed By Count Performed By Suhail Zabala ST (Scrub) Count Performed By ANA CALIX, RN (RN) Last Modified By: ANA CALIX RN 09/16/21 09:10:51 [facility] IntraOp Cultures and Spec Summary Entry 1 Cultrures and Specimens Specimen Ordered: Yes Test(s) Routine/Path-Lab Requested/Final Disposition Last Modified By: ANA CALIX RN 09/16/21 07:11:28 [facility] IntraOp Delays Entry 1 Delay Reason No Delay Duration 0 Minute(s) Last Modified By: ANA CALIX RN 09/16/21 08:16:35 [facility] IntraOp Departure from OR Entry 1 Integumentary Assessment Integumentary WDL Assessment WDL Transfer/Handoff Transfer to PACU Phase I Handoff Method Bedside/Face to face Post-op Transport Bed (including Via specialty) Patient Transport RENÉ CHRISTINE NA, Accompanied by ANA CALIX, CHECO Last Modified By: ANA CALIX RN 09/16/21 09:11:13 [facility] IntraOp Dressing and Packing Entry 1 Type Dressing Location RIGHT HIP Wound Dressing Item Occlusive dressing Tape Type Paper Applied By KAMALJIT CARLSON PA-C Other Comments DERMABOND PRINEO, MEPILEX DRESSING Last Modified By: ANA CALIX RN 09/16/21 08:17:16 [facility] IntraOp Fire Risk Assessment Entry 1 Fire Info Surgical Site or 0- No Incision Above the Xyphoid Open O2 Source 0- No (Mask or Cannula) Available Ignition 1- Yes (ESU, Laser, Light Source) Fire Risk 1 Assessment Score Fire Score Fire Risk Yes Assessment Complete Fire Risk ANA CALIX RN Assessment Verified By Fire Risk 09/16/21 07:07:00 Assessment Verified Date/Time Fire Risk High Risk Protocol Yes Implemented Standard Fire Yes Safety Precautions Followed Last Modified By: ANA CALIX RN 09/16/21 07:07:08 [facility] IntraOp General Case Mold Changer 1 Case Information OR OR 05 SJE Case Level 1 Room Verified Yes Wound Class 1 - Clean Specialty Orthopedic Anesthesia Type General ASA Class 3 Diagnosis Preop Diagnosis DEGENERATIVE JOINT DISEASE, RIGHT HIP Postop Same As Preop Yes Postop Diagnosis DEGENERATIVE JOINT DISEASE, RIGHT HIP Wound Class Definitions Last Modified By: ANA CALIX RN 09/16/21 08:18:07 [facility] IntraOp General Case Data Audit 09/16/21 08:18:07 Rn Review: VANESSA Modifier: LONGGA <+> 1 ASA Class <+> 1 Wound Class <+> 1 Anesthesia Type <+> 1 Postop Same As Preop <+> 1 Preop Diagnosis <+> 1 Postop Diagnosis <+> 1 Room Verified [facility] IntraOp Implant Log Entry 1 Entry 2 Entry 3 Type Implant (Synthetic) Implant (Synthetic) Implant (Synthetic) Implant Log Implant Type Hardware Hardware Hardware Tissue Implant Type Implant [id number] CUP CLSTR-HOLE ALTN HEAD FEM 36MM 03.5MM Identification [id number] Description Implant Quantity 1 1 1 Implant Site RIGHT HIP RIGHT HIP RIGHT HIP Implant Identification Model Number Implant [id number] Identification Serial Number Implant Identification Lot Number Implant Exactech Exactech Identification Accounting Coordinator Name: Implant [id number] Identification Catalog Number Implant Size Implant Has an Yes Yes Yes Expiration Date Implant Expiration 01/26/26 04/28/31 04/29/26 Date Wasted Radioactive Material Time Implanted Tissue Implant Continue for Tissue Implant Documentation Tissue Identification Number Graft Prep Per Accounting Coordinator Instructions: Tissue Preparation Method: Reconstitution Solution: Reconstitution Solution Lot Number Reconstitution Solution Expiration Date: Thawing Solution Thawing Solution Lot Number Thawing Solution Expiration Date Preparation Materials, Other Preparation Materials, Other Lot Number Preparation Materials, Other Expiration Date Tissue Prepared/Processed By Accounting Coordinator Paperwork Completed Implant Type Comment Last Modified By: ANA CALIX, ANA MEHTA RN LONGSWORTH, GARY, RN 09/16/21 08:34:16 09/16/21 08:35:46 09/16/21 08:57:30 Entry 4 Type Implant (Synthetic) Implant Log Implant Type Hardware Tissue Implant Type Implant STEM FEM PRESS FIT SZ Identification [id number] Description Implant Quantity 1 Implant Site RIGHT HIP Implant Identification Model Number Implant [id number] Identification Serial Number Implant Identification Lot Number Implant Exactech Identification Accounting Coordinator Name: Implant [id number] Identification Catalog Number Implant Size Implant Has an Yes Expiration Date Implant Expiration 11/11/25 Date Wasted Radioactive Material Time Implanted Tissue Implant Continue for Tissue Implant Documentation Tissue Identification Number Graft Prep Per Accounting Coordinator Instructions: Tissue Preparation Method: Reconstitution Solution: Reconstitution Solution Lot Number Reconstitution Solution Expiration Date: Thawing Solution Thawing Solution Lot Number Thawing Solution Expiration Date Preparation Materials, Other Preparation Materials, Other Lot Number Preparation Materials, Other Expiration Date Tissue Prepared/Processed By Accounting Coordinator Paperwork Completed Implant Type Comment Last Modified By: ANA CALIX RN 09/16/21 08:59:20 [facility] IntraOp Implant Log Audit 09/16/21 08:59:20 Rn Review: LONGGA Modifier: LONGGA <+> 4 Implant Identification Description <+> 4 Implant Identification Serial Number <+> 4 Implant Identification Accounting Coordinator Name: <+> 4 Implant Expiration Date <+> 4 Implant Site <+> 4 Implant Quantity <+> 4 Implant Identification Catalog Number <+> 4 Implant Type <+> 4 Implant Has an Expiration Date <+> 4 Type 09/16/21 08:57:30 Rn Review: LONGGA Modifier: LONGGA <+> 3 Implant Identification Description <+> 3 Implant Identification Serial Number <+> 3 Implant Identification Accounting Coordinator Name: <+> 3 Implant Expiration Date <+> 3 Implant Site <+> 3 Implant Quantity <+> 3 Implant Identification Catalog Number <+> 3 Implant Type <+> 3 Implant Has an Expiration Date <+> 3 Type 09/16/21 08:35:46 Rn Review: LONGGA Modifier: LONGGA <+> 2 Implant Identification Description <+> 2 Implant Identification Serial Number <+> 2 Implant Identification Accounting Coordinator Name: <+> 2 Implant Expiration Date <+> 2 Implant Site <+> 2 Implant Quantity <+> 2 Implant Identification Catalog Number <+> 2 Implant Type <+> 2 Implant Has an Expiration Date <+> 2 Type Ryan IntraOp Intraoperative Assessment Entry 1 Handoff Method Bedside/Face to face Valid History / Yes Physical in Chart Preoperative Yes Checklist Reviewed/Evaluated Allergies Reviewed Yes Patient is Latex No Sensitive Isolation Not applicable Precautions Noted Level of WDL Consciousness (WDL = Alert, Oriented to Person, Place, and Time) Skin Assessment Yes Verified Present Upon IVs Arrival to OR Last Modified By: ANA CALIX RN 09/16/21 07:14:45 [facility] IntraOp Intraoperative Equipment Entry 1 Type Equipment Equipment Equipment Macie Suction System Intraop Monitoring Electrocardiogram Three lead placement (ECG) Electrode Placement Antiembolic Devices Antiembolic Devices Sequential compression device, knee high Antiembolic Device Left Location Antiembolic Device [id number] ID Number Scopes Photo/Video Documentation Photo No Video No Last Modified By: ANA CALIX RN 09/16/21 08:18:30 [facility] IntraOp Medication Admin Entry 1 Entry 2 Entry 3 Medication/Irrigant heparin 1000units/ml clonidine 1ml Ketorolac 30mg/ml vial 10ml - [id number] Combo Med List 1 - Combo Med 2 - Combo Med Time Administered Route of CELLSAVER [id number] INJECTION Administration Dose Dose 97923 0.16 1 Unit of Measure units ml ml Volume 30ML Administered By OTHER, ATTENDEE #2 ELLIOT LOPEZ JR, JR, HUFF JR, WALLACE JR, MD-ORJeaneth OSORIOORJeaneth Procedure Irrigation Irrigant Volume In Irrigant Volume Out Last Modified By: ANA CALIX RN LONGSWORTH, GARY, RN LONGSWORTH, GARY, RN 09/16/21 08:21:02 09/16/21 08:21:02 09/16/21 08:21:02 Entry 4 Entry 5 Medication/Irrigant ROPIVICAINE 5% lidocaine 1% w/ epinephrine 1:100,000 20ml vial - [id number] Combo Med List 3 - Combo Med 4 - Combo Med Time Administered Route of INJECTION INJECTION Administration Dose Dose 25 23.84 Unit of Measure ml ml Volume Administered By ELLIOT LOPEZ JR, JR, HUFF JR, WALLACE JR, MD-ORT JÚNIOR Procedure Irrigation Irrigant Volume In Irrigant Volume Out Last Modified By: ANA CALIX RN LONGSWORTH, GARY, RN 09/16/21 08:21:02 09/16/21 08:21:02 [facility] IntraOp Patient Positioning Entry 1 Procedure Hip Total Anterior Approach Body Position Supine Left Arm Position Secured on padded arm board Right Arm Position Secured across chest Left Leg Position Traction Right Leg Position Traction Feet Uncrossed Yes Pressure Points Yes Checked Positioning Devices Arm Board, Pillows, Table, Lamar Device Position HANA TABLE; PERINEAL POST Positioned By RENÉ CHRISTINE NA, ELLIOT LOPEZ JR, JR, MD-ORT, ANA CALIX, CHECO, KAMALJIT CARLSON PA-C Position Verified Positioning Yes Verified by Anesthesia Positioning Yes Verified by Surgeon Last Modified By: ANA CALIX RN 09/16/21 08:19:55 [facility] IntraOp Sign In Entry 1 Patient, Site, Yes Procedure Identified Surgical Consent Yes Confirmed Relevant Surgical Yes Documents Available Surgical Site Yes Marked by person performing procedure Anesthesia Machine Yes Check Completed Medication Checks Yes Completed Allergies Yes Airway Difficult Yes Airway/Aspiration Risk Difficult Yes Airway/Aspiration Intervention Equipment Available Blood Loss Risk Yes Blood Loss Yes Intervention Equipment Prepared and Ready Blood Identifiers Yes Verified Per Policy Hypothermia Risk Yes Warming Measures Yes Taken Last Modified By: ANA CALIX RN 09/16/21 07:07:34 [facility] Intra Op Sign Out Entry 1 RN Confirmation Surgical Yes Procedure(s) Identified Instrument, Sponge Yes and Sharps Counts Correct/Documented Equipment Problems Yes Documented Specimen Labeled Yes Correctly Urinary Catheter N/A Documented in IView Wound Yes classification reviewed, verified and updated post case in both the General Case Data and Procedure segments Cao Patient Yes Recovery Concerns Reviewed with Anesthesia Provider, Surgeon and RN Cao Patient Yes Management Concerns Reviewed with Anesthesia Provider, Surgeon and RN Safety Checklist Yes Elements Complete? RN Sign Out ANA CALIX RN Signature RN Sign Out 09/16/21 09:11:00 Signature Date/Time Plan of Care Outcome - Fire Risk OUTCOME STATEMENT: Goal met Patient is free from injury related to surgical fire Plan of Care Outcome - Pt Positioning OUTCOME STATEMENT: Goal met Absence of signs and symptoms of positioning injury. Plan of Care Outcome - Skin Prep OUTCOME STATEMENT: Goal met Intraoperative care is consistent with measures to prevent infection Plan of Care Outcome - Xray/Images OUTCOME STATEMENT: Goal met Absence of observable signs or symptoms of radiation injury Plan of Care Outcome - Counts OUTCOME STATEMENT: Goal met Absence of signs and symptoms of injury related to extraneous objects Last Modified By: ANA CALIX RN 09/16/21 09:11:31 [facility] IntraOp Skin Prep Entry 1 Procedure Hip Total Anterior Approach Prescribed Yes Pre-Surgical Prep Completed Prep Area RIGHT HIP Intraop Prep Integumentary WDL Assessment WDL Prep Agents Chloraprep, Alcohol Prep by ANA CALIX RN Hair Removal Methods No hair removal performed Last Modified By: ANA CALIX RN 09/16/21 07:08:00 [facility] IntraOp Surgical Procedures Entry 1 Procedure Hip Total Anterior Approach Additional RIGHT TOTAL HIP Procedure ARTHROPLASTY, DIRECT Description ANTERIOR APPROACH Primary Procedure Yes Primary Surgeon ELLIOT LOPEZ JR, JR, MD-ORT Start 09/16/21 08:00:00 Stop 09/16/21 09:34:00 Anesthesia Type General Specialty Orthopedic Wound Class 1 - Clean Last Modified By: ANA CALIX RN 09/16/21 09:34:57 [facility] IntraOp Surgical Procedures Audit 09/16/21 09:34:57 Rn Review: LONGGA Modifier: LONGGA 1 <*> Procedure Hip Total Anterior Approach 1 <+> Wound Class 09/16/21 09:34:46 Rn Review: LONGGA Modifier: LONGGA 1 <*> Procedure Hip Total Anterior Approach 1 <+> Stop 09/16/21 08:11:57 Rn Review: LONGGA Modifier: LONGGA <+> 1 Start [facility] IntraOp Temp Regulation Devices Entry 1 Temp Regulation Temperature Conductive warming Regulation Device device placed over patient Temperature 4162 Regulation Device Serial/Unit Number Temperature Upper body Regulation Site Temperature Device 43 Setting Temperature VANITARENÉ NA Regulation Device Applied by Last Modified By: ANA CALIX RN 09/16/21 08:19:14 [facility] IntraOp Time Out Entry 1 Procedure to be Hip Total Anterior Performed Approach Time Out Time Out Pause Time 09/16/21 08:00:00 All activity Yes suspended (unless life threatening emergency) Team Verbally Correct patient Confirms Information identity, Consent form is present and accurate, Agreement on the procedure to be done, Correct patient position, Relevant images/results properly labeled/appropriately displayed, Confirm antibiotics have been administered, Confirm the skin prep has dried, Confirm prosthesis/implant/devic e is present, Performed in location of procedure after prepped/draped, Performed before each procedure if multiple procedures Antibiotic Yes Prophylaxis Administered Or In Progress Within the Last 60 Minutes Beta Nick Yes Administered Venous Yes Thromboembolism Prophylaxis Required Anticipated Critical Events Surgeon None expected Anesthesia Provider Patient specific concerns Nursing Assures Sterility of instruments, Equipment concerns or issues, Implant Availability Essential Imaging Yes Labeled and Displayed Last Modified By: ANA CALIX RN 09/16/21 08:11:33 [facility] IntraOp X-Ray and Images Entry 1 X-Ray/Imaging Type Fluoroscopy Fluoroscopy Type C-Arm Site RIGHT HIP Interim Controller Name Derick Calhoun CORPORATE MEETING PLANNER Protective Devices Yes Used Last Modified By: ANA CALIX RN 09/16/21 08:13:13 Case Comments <None> Finalized By: Zakia Squires, RN Document Signatures Signed By: ANA CALIX RN 09/16/21 09:46 Zakia Squires RN 09/17/21 08:34 Unfinalized History Date/Time Username Reason for Unfinalizing Freetext Reason for Unfinalizing 09/17/21 08:32 DEIDRE Correct Billing Electronically signed by [facility] Conversion Turbine Subassembler Cerner at 02/14/2023 9:27 AM CDT documented in this encounter Plan of Treatment Not on file documented as of this encounter Visit Diagnoses Not on filedocumented in this encounter Care Teams Bicycle I Assembler Relationship Specialty Start Date End Date Akhil Brown MD [address] [place] [id number] PCP - General Family Medicine 06/09/23 documented as of this encounter
--- OUTSIDE RECORDS SUMMARY | 2025-06-13 10:09 | XMS_ITS | Encounter Summary ---
Author Organization [employer] ([place], [place], [place], [place]) Address [address] [place] [address] Care Team Providers Care Associate Director Of Biostatistics Name Role Phone Akhil Brown MD Primary Care Provider [phone]- [phone] Encounter Details Date Type Department Care Team (Late st Contact Info) Description 09/16/2021 Transcribed Document [facility] [place] [facility] [place] [address] ProviderNayeli MD [address] [place] [address] Social History Tobacco Use Types Packs/Day Years Used Date Smoking Tobacco: Never Assessed Comments Unknown Sex and Gender Information Value Date Recorded Sex Assigned at Not on file Legal Sex Female 3:37 PM CDT Gender Identity Not on file Sexual Orientation Not on file documented as of this encounter Miscellaneous Notes * Cerner Conversion Note - Nayeli ProviderMD - 09/16/2021 1:10 PM TRAY FILLER Treatment Intervention, OT Entered On: 09/17/2021 12:25 EST Performed On: 09/17/2021 12:17 EST by DAMASO CHATTERJEE OTR/Arun General Information, OT Visit Type, OT : Treatment Note Patient Orders : Order Date Order Ordering 09/16/2021 10:43 OT Evaluation and Treatment Ordered By: ELLIOT LOPEZ JR, JR, MD-ORT 09/16/2021 13:10 Occupational Therapy Additional Tx Ordered By: Active Diagnoses : 09/16/2021 12:00 Essential (primary) hypertension 09/16/2021 12:00 Hyperlipidemia, unspecified 09/16/2021 12:00 Hypothyroidism, unspecified 09/16/2021 12:00 Other amnesia 09/16/2021 12:00 Other specified personal risk factors, not elsewhere classified 09/16/2021 12:00 Pain in right hip 09/16/2021 12:00 Presence of right artificial hip joint 09/16/2021 12:00 Unilateral primary osteoarthritis, right hip 09/16/2021 12:00 Unspecified atrial fibrillation Therapy Diagnosis, OT : aftercare following R ATHA Admission Date : 09/16/2021 04:46 Personal Devices : Personal Devices No Devices Recorded Assistive Devices : Assistive Devices No Devices Recorded Precautions in Place : Fall prevention measures DAMASO CHATTERJEE OTR/Arun - 09/17/2021 12:17 EST General Status Patient Received Status : Supine in bed, Bed alarm activated, Other: IV Treatment Start Time : 09/17/2021 9:40 EST Patient Left Status : Up in chair, Chair alarm activated, RN/PCT informed, All needs met and within reach, Other: RADIOGRAPHER TECHNOLOGIST/PCT Informed Comment : RN ok'd to tx, ID and verified Treatment End Time : 09/17/2021 9:55 EST Treatment Time : 15 Minute(s) DAMASO CHATTERJEE OTR/Arun - 09/17/2021 12:17 EST Self Care/Home Management, OT Lower Body Dressing Assist Level, OT : Supervision or set-up Lower Body Dressing Device Comment, OT : education on LB dressing technique to don underwear with CGA/SBA and cues for safety Bed/Chair/WC Transfer Assist Level : Supervision or set-up Bed/Chair/WC Transfer Device : Belt, gait, Walker, front wheel Bed/Chair/WC Device Comment : CGA/SBA and cues for safety /hand placement DAMASO CHATTERJEE OTR/Arun - 09/17/2021 12:17 EST Mobility Device/Prosthesis/Wt Bearing Weight Bearing Status Maintained : Yes Weight Bearing Status : As tolerated Functional Mobility Device : Gait belt, Walker, front wheel DAMASO CHATTERJEE OTR/Arun - 09/17/2021 12:17 EST Functional Mobility Mobility Grid Supine to Sit : Rehab Modified independence Sit to Stand : Supervision/set-up Bed to Chair : Supervision/set-up Chair to Bed : Supervision/set-up DAMASO CHATTERJEE OTR/Arun - 09/17/2021 12:17 EST Functional MobilityComment : gait belt, pt using rw walks in bed <-> bathroom with CGA/SBA and transfer to recliner CGA/SBA. education on safety and use of rw DAMASO CHATTERJEE OTR/Arun - 09/17/2021 12:17 EST Education OT Occupational Therapy Education Grid Activity of Daily Living Training : Verbalizes understanding, Returns demonstration, Needs further teaching, Needs reinforcement Functional Mobility Training : Verbalizes understanding, Returns demonstration, Needs further teaching, Needs reinforcement DAMASO CHATTERJEE OTR/Arun - 09/17/2021 12:17 EST Plan of Care, OT OT Tx Plan/Goals Established w Patient : No Reason OT Treatment/Plan Not Established : acute care OT goals met, pt being discharged to rehab DAMASO CHATTERJEE OTR/Arun - 09/17/2021 12:17 EST Associate Dean Goals, OT Other LTG Grid Goal #1 Goal #2 Goal : pt to perform LB ADL min assist pt to perform functional ADL transfers CGA Date to Meet : 09/23/2021 EST 09/23/2021 EST Goal Status : Goal met Goal met Date Met : 09/17/2021 EST 09/17/2021 EST DAMASO CHATTERJEE OTR/Arun - 09/17/2021 12:17 EST DAMASO CHATTERJEE OTR/Arun - 09/17/2021 12:17 EST Treatment Note Subjective Comment : pt agrees to tx Patient's Response to Treatment : pt does have memory deficits and requires cues for safety Additional Objective Information : ADL Assessment : pt met 2/2 acute care OT goals Plan for Treatment : pt being discharged to rehab facility today and to benefit from OT at the next level of care DAMASO CHATTERJEE OTR/Arun - 09/17/2021 12:17 EST Pain Assessment Pain Scaled Used : 0-10 Pain scale Pain Score Pre-Intervention : 0 DAMASO CHATTERJEE OTR/Arun - 09/17/2021 12:17 EST Image 1 - Images currently included in the form version of this document have not been included in the text rendition version of the form. [facility] OT Charges OT Selfcare/Hm Mgmt Ea 15 Min : 1 DAMASO CHATTERJEE OTR/Arun - 09/17/2021 12:17 EST documented in this encounter Plan of Treatment Not on file documented as of this encounter Visit Diagnoses Not on filedocumented in this encounter Care Teams Associate Director Of Biostatistics Relationship Specialty Start Date End Date Akhil Brown MD [address] [place] [phone] PCP - General Family Medicine 06/09/23 documented as of this encounter
--- OUTSIDE RECORDS SUMMARY | 2025-06-13 10:09 | XMS_ITS | Encounter Summary ---
Author Organization [employer] ([place], [place], [place], [place]) Address [address] [place] [address] Care Team Providers Care Creative Arts Music Therapist Name Role Phone Akhil Brown MD Primary Care Provider +1- [phone] Encounter Details Date Type Department Care Team (Late st Contact Info) Description 09/16/2021 Transcribed Document [facility] [place] [facility] [place] [address] ProviderNayeli MD [address] [place] [address] Social History Tobacco Use Types Packs/Day Years Used Date Smoking Tobacco: Never Assessed Comments Unknown Sex and Gender Information Value Date Recorded Sex Assigned at Not on file Legal Sex Female 3:37 PM CDT Gender Identity Not on file Sexual Orientation Not on file documented as of this encounter Miscellaneous Notes * Cerner Conversion Note - Nayeli ProviderMD - 09/16/2021 11:13 AM DIRECTOR OF STUDENT LIFE Pain Assessment Entered On: 09/16/2021 13:46 EST Performed On: 09/16/2021 12:17 EST by Jennifer Soler RN Intervention Information: oxyCODONE Performed by Jennifer Soler RN on 09/16/2021 11:17:00 EST oxyCODONE,5mg Oral,Pain (Moderate 4-6) Pain Assessment Pain Assessment : Follow-up assessment Pain Scale Goal : 3 Pain Scale Used : 0-10 Scale Pain Improved by Intervention : Yes Jennifer Soler RN - 09/16/2021 13:46 EST Pain Scale Intensity : 2 Jennifer Soler RN - 09/16/2021 13:46 EST Image 4 - Images currently included in the form version of this document have not been included in the text rendition version of the form. documented in this encounter Plan of Treatment Not on file documented as of this encounter Visit Diagnoses Not on filedocumented in this encounter Care Teams Creative Arts Music Therapist Relationship Specialty Start Date End Date Akhil Brown MD [address] [place] [phone] PCP - General Family Medicine 06/09/23 documented as of this encounter
--- OUTSIDE RECORDS SUMMARY | 2025-06-13 10:10 | XMS_ITS | Encounter Summary ---
Author Organization [employer] ([place], [place], [place], [place]) Address [address] [place] [address] Care Team Providers Care Director Of Gift Planning Name Role Phone Akhil Brown MD Primary Care Provider +1- [phone] Encounter Details Date Type Department Care Team (Late st Contact Info) Description 09/16/2021 Transcribed Document [facility] [place] [facility] [place] [address] ProviderNayeli MD [address] [place] [address] Social History Tobacco Use Types Packs/Day Years Used Date Smoking Tobacco: Never Assessed Comments Unknown Sex and Gender Information Value Date Recorded Sex Assigned at Not on file Legal Sex Female 3:37 PM CDT Gender Identity Not on file Sexual Orientation Not on file documented as of this encounter Miscellaneous Notes * Cerner Conversion Note - Nayeli ProviderMD - 09/16/2021 7:[address] SCAN TECH Spiritual Care Short Form Entered On: 09/16/2021 7:50 EST Performed On: 09/16/2021 7:00 EST by CHINTAN LITTLEJOHN Chaplain General Information, Spiritual Care Spiritual Care Referred by : Nurse Reason for Visit : Initial Ministry Provided to : Patient Intervention/Comment/Summary Points : Pre-surgery visit to patient; she was ready for her surgery, looking forward to alleviation of pain and better mobility. Patient is Church and she has good family and buddhist support. Prayed with her for her surgery and recovery. Spiritual/Emotional Acuity : Low Spiritual Framework : Well integrated, provides significant strength/resource Active in a Jewish/Yadira Group : Yes Zoroastrian Preference : Church CIHNTAN LITTLEJOHN Chaplain - 09/16/2021 7:49 EST Electronically signed by [facility] Conversion Turn Down Attendant Cerner at 02/14/2023 9:18 AM CDT documented in this encounter Plan of Treatment Not on file documented as of this encounter Visit Diagnoses Not on filedocumented in this encounter Care Teams Director Of Gift Planning Relationship Specialty Start Date End Date Akhil Brown MD [address] [place] [phone] PCP - General Family Medicine 06/09/23 documented as of this encounter
--- OUTSIDE RECORDS SUMMARY | 2025-06-13 10:10 | XMS_ITS | Encounter Summary ---
Author Organization [employer] ([place], [place], [place], [place]) Address [address] [place] [address] Care Team Providers Care Chicken Cutter Name Role Phone Akhil Brown MD Primary Care Provider [phone]- [phone] Encounter Details Date Type Department Care Team (Late st Contact Info) Description 09/16/2021 Transcribed Document [facility] [place] [facility] [place] [address] ProviderNayeli MD [address] [place] [address] Social History Tobacco Use Types Packs/Day Years Used Date Smoking Tobacco: Never Assessed Comments Unknown Sex and Gender Information Value Date Recorded Sex Assigned at Not on file Legal Sex Female 3:37 PM CDT Gender Identity Not on file Sexual Orientation Not on file documented as of this encounter Miscellaneous Notes * Cerner Conversion Note - Nayeli Nava MD - 09/16/2021 12:42 PM INSTRUCTOR PRODUCT INSPECTION Initial Discharge Planning Entered On: 09/16/2021 12:50 EST Performed On: 09/16/2021 12:42 EST by JARROD EMERSON, RN Initial Assessment I Previously Documented Living Environment : No qualifying data available. Living Situation : Home Patient Lives With : Alone Is the Patient a Caregiver at Home? : No Emergency Contact #1 : Devi Hale Emergency Contact #1 Emergency Contact #1 Relationship : daughter Emergency Contact #2 : .na Emergency Contact #2 Phone Number : .na Emergency Contact #2 Relationship : na. Enter Doctors Name : Terrence Batista Md Does Patient have PCP Listed? : Yes Legal Guardian : No JARROD EMERSON, CHECO - 09/16/2021 12:42 EST Initial Assessment II Sensory and Motor Deficits : None Current Home Treatments and Equipment : Walker Services and Community Resources : Other: na Does the Patient have a Floor to SNF Benefit? : No JARROD EMERSON RN - 09/16/2021 12:42 EST Discharge Needs I Anticipated Discharge Date : 09/16/2021 EST Anticipated Discharge To, CM : alf facility Current Home Treatment/Equipment : Current Home Treatment/Equipment No qualifying data available. Post Acute/Home Treatments : Bedside commode, Wheelchair Documentation Status Complete : Yes JARROD EMERSON RN - 09/16/2021 12:42 EST Discharge Needs II Professional Skilled Services : Professional Skilled Services No qualifying data available. Services and Community Resources : Other: na Needs Assistance with Transportation : No Discharge Options Discussed with Patient : Discharge transportation, DME, Short term rehabilitation Patient Discharge Goal : Inpatient rehabilitation facility JARROD EMERSON RN - 09/16/2021 12:42 EST Narrative Note Narrative Note : 75 y/o female s/p RATH per Dr. Fitzgerald. Met with patient at bedside to discuss discharge needs and to verify demograpics and pcp. STATUS: patient lives alone but has family that helps her. She is iADLS PLAN: patient wants Rehab and choose [facility]. Referral sent out via [employer]. Patient has had both her covid vaccinations. DME: Patient has a standard walker but will need a front rolling walker and bedside commode. She will get that after leaving Rehab Facility CM: case management to continue to follow patient. TRANS: depends on how she is doing at time of discharge but she may need a caliber arranged JARROD EMERSON RN - 09/16/2021 12:42 EST Electronically signed by [facility] Conversion Card Clothier Cerner at 02/14/2023 9:22 AM CDT documented in this encounter Plan of Treatment Not on file documented as of this encounter Visit Diagnoses Not on filedocumented in this encounter Care Teams Chicken Cutter Relationship Specialty Start Date End Date Akhil Brown MD [address] [place] [phone] PCP - General Family Medicine 06/09/23 documented as of this encounter
--- OUTSIDE RECORDS SUMMARY | 2025-06-13 10:10 | XMS_ITS | Clinical Summary ---
Author Organization [facility] Address [address] [place] [address] Care Team Providers Care Entry Driver Operator Name Role Phone Richard Bai MD Primary Care Provider [phone] Allergies Active Allergy Reactions Criticality Noted Date Comments Diphenhydramine Irritability 03/25/2021 Medications valsartan-hydroc hlorothiazide (DIOVAN-HCT) 320-12.5 MG per tablet Take 1 tablet by mouth Daily. Active meloxicam (MOBIC) 15 MG tablet Take 15 mg by mouth Daily. Active venlafaxine XR (EFFEXOR-XR) 150 MG 24 hr capsule Take 150 mg by mouth Daily. Active sotalol (BETAPACE) 80 MG tablet Take 80 mg by mouth 2 (Two) Times a Day. 1/2 bid Active rivaroxaban (XARELTO) 20 MG tablet Take 20 mg by mouth Daily. Active atorvastatin (LIPITOR) 10 MG tablet Take 10 mg by mouth Daily. Active levothyroxine (Euthyrox) 25 MCG tablet Take 25 mcg by mouth Daily. Active cetirizine (zyrTEC) 10 MG tablet Take 10 mg by mouth Daily. Active memantine (NAMENDA) 10 MG tablet Take 10 mg by mouth 2 (Two) Times a Day. Active donepezil (ARICEPT) 10 MG tablet Take 10 mg by mouth Every Night. Active Active Problems Problem Noted Date Diagnosed Date Late onset Alzheimer's demen tia without behavioral disturbance 03/25/2021 Acquired hypothyroidism 03/25/2021 Paroxysmal atrial fibrillation 03/25/2021 Hypercholesterolemia 03/25/2021 Recurrent major depressive disorder, in full rem ission 03/25/2021 Immunizations Immunization Administration Dates Next Due COVID-19 (MODERNA) 1st,2nd,3rd Dose Monovalent 0 02/27/2021 Fluzone High-Dose 65+YRS 12/13/2018,07/18/2017 Td (TDVAX) 01/05/1997 Tdap 10/04/2019,07/18/2017 Family History Medical History Relation Name Comments COPD Father No Known Problems Mother Relation Name Status Comments Father Mother Social History Tobacco Use Types Packs/Day Years Used Date Smoking Tobacco: Never Smokeless Tobacco: Never Alcohol Use Standard Drinks/Week Comments Never 0 (1 standard drink = 0.6 oz pur e alcohol) AUDIT-C Answer Date Recorded Q1: How often do you have a drink containing alc ohol? Never 03/25/2021 Average Number of Drinks Not on file 021 Frequency of Binge Drinking Not on file 03/01 PHQ-2 Answer Date Recorded Retired Total Score 24 03/25/2021 Abuse Screen Answer Date Recorded Unsafe at Home or Work/School Not on file Feels Threatened by Someone? Not on file Does Anyone Keep You from Co ntacting Others or Doint Things Outside the Home? Not on file 08/12/2023 Physical Sign of Abuse Present Not on file 1 Housing Stability Answer Date Recorded Current Living Arrangements Not on file 07/31 Potentially Unsafe Housing Conditions Not on andrew e 08/12/2023 Family and Community Support Answer James e Recorded Help with Day-to-Day Activities Not on file 08/12/2023 Lonely or Isolated Not on file 08/12/2023 Employment Answer Date Recorded Do you want help finding or keeping work or a kirk b? Not on file 08/12/2023 Disabilities Answer Date Recorded Concentrating, Remembering, or Making Decisions Difficulty Not on file 08/12/2023 Doing Errands Independently Difficulty Not on fi le 08/12/2023 Education Answer Date Recorded Help with school or training? Not on file Preferred Language Not on file 08/12/2023 Comments Unknown Sex and Gender Information Value Date Recorded Sex Assigned at Not on file Legal Sex Female 9:06 AM EDT Gender Identity Not on file Sexual Orientation Not on file Last Filed Vital Signs Vital Sign Reading Time Taken Comments Blood Pressure 134/84 03/25/2021 10:25 AM EDT Pulse 68 03/25/2021 10:25 AM EDT Temperature 36.3 C (97.3 F) 03/25/2021 10:25 AM EDT Respiratory Rate 18 03/25/2021 10:25 AM EDT Oxygen Saturation - - Inhaled Oxygen Concentration - - Weight 85.3 kg (188 lb) 03/25/2021 10:25 AM EDT Height 180.3 cm (5' 11 ) 03/25/2021 10:25 AM EDT Body Mass Index 26.22 03/25/2021 10:25 AM EDT Plan of Treatment Health Maintenance Due Date Last Done Comments DXA SCAN 1945 LIPID PANEL 1945 Pneumococcal Vaccine 50+ (1 of 1 - PCV) 1995 ZOSTER VACCINE (1 of 2) 1995 RSV Vaccine - Adults (1 - 1- dose 75+ series) 2020 ANNUAL PHYSICAL 03/16/2021 HEPATITIS C SCREENING 03/16/2021 COVID-19 Vaccine (2 - season) 2024 INFLUENZA VACCINE 07/31/2025 12/13/2018, 07/18/2017 TDAP/TD VACCINES (4 - Td or Tdap) 10/04/2029 10/04/2019, 07/18/2017, 01/05/[address] [place] [address] MEDICARE A & B Member Subscriber Plan / Payer (Ef fective 2010-Present) Name:Karina Wilson Member ID:[id number] Relation to Subscriber:Self Name:Karina Wilson Subscriber ID:[id number] Payer ID:[id number] Group ID:Not on file Type:Not on file Address: [address] [employer] Care Teams Entry Driver Operator Relationship Specialty Start Date End Date Richard Bai MD [address] [place] [address] PCP - General Family Medicine 03/25/21
--- OUTSIDE RECORDS SUMMARY | 2025-06-13 10:10 | XMS_ITS | Patient Health Record ---
Author Organization [facility] Address [address] [place] [id number] Care Team Providers Care Telecasting Technician Name Role Phone Nina Batista Primary Care Provider Linda Vivar Unavailable [phone] Valentino Brown Unavailable [phone] Allergies Allergen (clinical drug ingredient) Drug/Non Drug [...] - 38 plat 134 100 - 400 Medications Medication SIG (Take, Route, Frequency, Duration) Notes Start Date End Date Status Diovan HCT 320-12.5 MG 1 tab(s) orally o nce a day; Duration: 90 days Active Venlafaxine HCl ER 150 MG 1 cap(s) orall y once a day; Duration: 90 days Active Xarelto 20 MG 1 tab(s) orally once a day (in the evening); Duration: 90 days Active Meloxicam 15 MG 1 tab(s) orally once a day; Duration: 90 Active Donepezil HCl 10 MG 1 tab(s) orally once a day (at bedtime) Not-Taking Memantine HCl 10 MG 1 tab(s) orally 2 ti mes a day Not-Taking Cetirizine HCl 10 MG 1 tab(s) orally onc e a day; Duration: 90 days Active B-12 1000 MCG 1 tab(s) orally once a day; Duration: 90 Active Atorvastatin Calcium 10 MG 1 tab(s) orally once a day; Duration: 90 days Active Sotalol HCl 80 MG 1/2 orally 2 times a day as needed; Duration: 90 days Active traZODone HCl 50 MG 1 tablet at bedtime as needed Orally Once a day; Duration: 30 day(s) Not-Taking Euthyrox 25 MCG Take 1 tablet by once daily; Duration: 90 days Active Doxycycline Hyclate 100 MG 1 tablet Orally Two times a day 09/06/2024 Active Promethazine-DM 6.25-15 MG/5ML 5 ml Orally every 6 hrs prn 09/06/2024 Active Immunizations Vaccine Route Administration Date Status Comme nts COVID 19 Moderna Unknown 03/27/2021 Administered COVID 19 Moderna Unknown 10/16/2021 Administered DT, 7 YEARS OR OLDER Unknown 01/05/1997 Administered Fluzone High Dose (65yr and older) IM Intramuscular 07/01/2015 Administered Fluzone High Dose (65yr and older) IM Intramuscular 07/22/2016 Administered Fluzone High Dose (65yr and older) IM Intramuscular 07/18/2017 Administered Fluzone High Dose (65yr and older) IM Intramuscular 12/13/2018 Administered Fluzone High Dose (65yr and older) Unknown 09/15/2023 Pending PNEUMOVAX 23 VACCINE IM Intramuscular 07/22/2016 Administe red Prevnar (PCV13) IM Intramuscular 07/01/2015 Administered Prevnar (PCV20) IM Intramuscular 12/22/2023 Administered Tetanus Tdap-Adacel (over 7yrs) IM Intramuscular 07/18/2017 Administered Tetanus Tdap-Adacel (over 7yrs) Unknown 10/04/2019 Administered xFluzone (6mos and older)-trivalent IM Intramuscular 07/10/2012 Administered lLvqvbfb-dyfitxdxj-yewfshe e pts. IM Intramuscular 10/09/2013 Administered Problems Problem Type SNOMED Code ICD Code Onset Dates Problem Status W/U Status Risk Notes Problem Restless legs syndrome (79475070) Restless leg syndrome (333.99) Active confirmed Problem Vitamin D deficiency (09277780) Vitamin D deficiency (E55.9) Active confirmed Problem Essential hypertension (99012451) Essential hypertension (I10) Active confirmed Problem Diverticulitis (60072301) Diverticulitis (K57.92) Active confirmed Problem Osteopenia (667349958) Osteopenia (M85.80) Active confirmed Problem Osteoarthritis (904561754) Osteoarthritis (M19.90) Active confirmed Problem Paroxysmal atrial fibrillation (656518392) Paroxysmal atrial fibrillation (I48.0) Active confirmed Problem Mixed hyperlipidemia (573480208) Mixed hyperlipidemia (E78.2) Active confirmed Problem Total hip replacement Prosthesis (002961106) Presence of right artificial hip joint (Z96.641) Active confirmed Problem Acquired hypothyroidism (246667696) Acquired hypothyroidism (E03.9) Active confirmed Problem Iron deficiency anemia (69126019) Iron deficiency anemia, unspecified iron deficiency anemia type (D50.9) Active confirmed Problem Recurrent falls (289757827) Frequent falls (R29.6) Active confirmed Problem Cataract (783259345) Cataracts, bilateral (H26.9) Active confirmed Problem Localized, primary osteoarthritis of the pelvic region and thigh (041760860) Primary osteoarthritis of left hip (M16.12) Active confirmed Problem Dyslipidemia (735299847) Dyslipidemia (E78.5) Active confirmed Problem Depression (596829812) Other depression (F32.89) Active confirmed Problem Postconcussion syndrome (16880107) Post concussive syndrome (F07.81) Active confirmed Problem Mild cognitive disorder (183004923) MCI (mild cognitive impairment) with memory loss (G31.84) Active confirmed Vital Signs Heart Rate 67 /min 09/06/2024 Blood pressure diastolic 96 mm Hg 09/06/2024 Height 69 in 09/06/2024 Blood pressure systolic 150 mm Hg 09/06/2024 Weight 152.4 lbs 09/06/2024 BMI 22.50 kg/m2 09/06/2024 Encounters Encounter Location Date Provider Diagnosis [facility] [address] [facility] [address] [place] [id number] 09/06/2024 Valentino Brown URI (upper respirato ry infection) J06.9 [facility] [address] [place] [id number] 05/07/2025 Nina Batista Assessments Encounter Date Diagnosis (ICD Code) Assessment Notes Treatment Notes Treatment Clinical Notes Section Notes 09/06/2024 URI (upper respiratory infection) (ICD-10 - J06.9) Plan Of Treatment No Information Insurance Providers Payer Name Payer Address Payer Phone Subscriber Number Group Number Insured Name Patient Relationship to Insured Coverage Start Date Coverage End Date MEDICARE PART B [address] [address] [place] [address] [id number] DELMIS HENDRICKS Self - patient is the insured [facility] [employer] [address] [place] [address] [id number] DELMIS HENDRICKS Self - patient is the insured Medications Administered Medication Instructions Date of Administration Dosage Notes B-12 01/21/2011 1 mL B-12 02/04/2011 1 mL B-12 02/18/2011 B-12 03/10/2011 B-12 12/14/2011 B-12 12/28/2011 0.5 mL B-12 01/04/2012 1 mL B-12 01/11/2012 1 mL B-12 02/15/2012 1 mL B-12 10/28/2015 1 mL Medical (General) History Medical History History ICD Code osteoarthritis IBS migraines 12/30/2008 echo EF>55%, concentric LVH atrial fib-followed by Dr. Gordon q 6 azul hs Hypothyroidism Hypertension Microcytic anemia and Leukopenia followe d by Dr. Jameson Anxiety and depression Hyperlipidemia PVD Mild cognitive impairment with memory lo ss followed by Dr. Benito Polyneuropathy with right foot drop B12 deficiency Surgical History Surgery Date(Month/Year) hysterectomy gallbladder removal left breast surgery-removal of gland Both eyes brow lift 02/2015 Removal of skin cancer from Nose 07/2017 Both Eyelid Lifts 04/2015 Vein ablation right leg - Dr. Gordon at [facility] [employer] 11/01/2017 Colonoscopy/Dr. Chaves/polyps and left- sided diverticulosis 01/09/2021 EGD/Dr. Chaves/ large hiatal hernia 12/29 Right NORMAN C-scope/ [facility]/ diverticulosis and hem orrhoids 12/2022 Left total Hip Redo/ Dr. Fitzgerald 07/01/2023 Hospitalization History Reason Date(Month/Year) Palpitations 12/30/2008 [facility] ER - fell 09/2019
--- OUTSIDE RECORDS SUMMARY | 2025-06-13 10:10 | XMS_ITS | Encounter Summary ---
Author Organization [employer] ([place], [place], [place], [place]) Address [address] [place] [address] Care Team Providers Care Slab Miller Operator Name Role Phone Akhil Brown MD Primary Care Provider [phone] Encounter Details Date Type Department Care Team (Late st Contact Info) Description 09/16/2021 Transcribed Document [facility] [place] [facility] [place] [address] ProviderNayeli MD [address] [place] [address] Social History Tobacco Use Types Packs/Day Years Used Date Smoking Tobacco: Never Assessed Comments Unknown Sex and Gender Information Value Date Recorded Sex Assigned at Not on file Legal Sex Female 3:37 PM CDT Gender Identity Not on file Sexual Orientation Not on file documented as of this encounter Miscellaneous Notes * Cerner Conversion Note - Nayeli Nava MD - 09/16/2021 12:50 PM VEHICLE MECHANIC On Going Discharge Planning Entered On: 09/16/2021 12:51 EST Performed On: 09/16/2021 12:50 EST by JARROD EMERSON RN Care Management Progress Note Discharge Arrangements : Patient Post-Acute Information Patient Name: KARINA WILSON Gender: Female : 45 Age: 75 Years No Post-Acute Placement(s) Listed No Post-Acute Service(s) Listed No [place] Referral(s) Listed Discharge Options Discussed with Patient : Discharge transportation, DME, Short term rehabilitation Barriers to Discharge Identified : Clinical Condition of Patient Barriers to Discharge Unresolved : Clinical Condition of Patient Patient Discharge Goal : Inpatient rehabilitation facility Patient Offered Choice/Affiliations Explained : Yes Designation of Choice Signed : Yes List/Info Provided Pt/Fam/Support Person : shelter facilities Were Referrals Sent to Post Acute Providers : Yes [facility] Quality Web Info Shared w Pt/Fam : No Does the Patient have a Floor to SNF Benefit? : Yes Is the Patient Meeting Medical Necessity : Yes Physician Agreeable to Move Forward with D/C Plan? : Yes Did you Attend Multidisciplinary Rounds? : No JARROD EMERSON RN - 09/16/2021 12:50 EST Narrative Progress Note Narrative Progress Note : 75 y/o female s/p RATH per Dr. Fitzgerald. Met with patient at bedside to discuss discharge needs and to verify demograpics and pcp. STATUS: patient lives alone but has family that helps her. She is iADLS PLAN: patient wants Rehab and choose [facility]. Referral sent out via [facility]. Patient has [...] caliber arranged JARROD EMERSON RN - 09/16/2021 12:50 EST Electronically signed by [facility] Conversion Meter/Relay Craftsman Cerner at 02/14/2023 9:15 AM CDT documented in this encounter Plan of Treatment Not on file documented as of this encounter Visit Diagnoses Not on filedocumented in this encounter Care Teams Slab Miller Operator Relationship Specialty Start Date End Date Akhil Brown MD [address] [place] [id number] PCP - General Family Medicine 06/09/23 documented as of this encounter
--- OUTSIDE RECORDS SUMMARY | 2025-06-13 10:10 | XMS_ITS | Encounter Summary ---
Author Organization [facility] ([place], [place], [place], [place]) Address [address] [place] [address] Care Team Providers Care Burlap Roll Coverer Name Role Phone Akhil Brown MD Primary Care Provider [phone] Encounter Details Date Type Department Care Team (Late st Contact Info) Description 09/17/2021 Transcribed Document [facility] – [place] Family Medicine [place] [address] ProviderNayeli MD [address] [place] [id number] Social History Tobacco Use Types Packs/Day Years Used Date Smoking Tobacco: Never Assessed Comments Unknown Sex and Gender Information Value Date Recorded Sex Assigned at Not on file Legal Sex Female 3:37 PM CDT Gender Identity Not on file Sexual Orientation Not on file documented as of this encounter Miscellaneous Notes * Cerner Conversion Note - Nayeli Nava MD - 09/17/2021 11:31 AM CLINICAL COURIER [place] [id number] KARINA WILSON :1945 Visit Time:09/16/2021 Your Visit Summary Your Care Team Admitting Physician - ELLIOT LOPEZ JR, JR, MD-ORT Attending Physician - ELLIOT LOPEZ JR, JR, MD-ORT Primary Care Physician - ELLIOT LOPEZ JR, JR, MD-ROMARIO Referring Physician - ELLIOT LOPEZ JR, JR, MD-ORT Your Diagnosis At risk for sleep apnea Atrial fibrillation Hyperlipidemia Hypertension Hypothyroid Memory deficit Right hip pain Status post total hip replacement, right Unilateral primary osteoarthritis, right hip, Unilateral primary osteoarthritis, right hip, Unilateral primary osteoarthritis, right hip These Are Your Goals walk with less pain Patient Discharge Goal Patient Discharge Goal: Inpatient rehabilitation facility Discharge Vitals Temperature 37.1 ??C Heart Rate (Monitored) 63 Blood Pressure 118/79 What to do next Instructions From Your Care Team Refer to handouts provided to you by physical therapy and occupational therapy. Must walk with walker x 2 weeks minimum, then PT will direct you Elevate affected lower extremity on 2-3 pillows while sleeping x 6-[address]. [address] a pillow under operative thigh to keep hip flexed while sleeping May shower on Tuesday, but keep incision covered with Glad Press and Seal. Dressing may be removed on the day after surgery. is post op day 1. Monitor for signs of infection. If you have drainage after day 10 notify MD who performed surgery. You will be on blood thinners x 45 days. Do not stop unless told to by MD. Use ice pack to incision several times per day for 20 minutes on and 40 minutes off You will receive the following meds at discharge: Acetaminophen 500mg ??? take 2 tablets every 8 hours x 30 days Colace 100mg ??? 1-2 capsules daily for constipation Tramadol 50mg ??? 1-2 tablets every 4-6 hours for pain Oxycodone 5mg ??? 1- tablets every 4-6 hours for pain Aspirin 81mg ??? take 1 tablet 2 times daily x 45 days Discharge Follow Up Instructions: Follow-up with them Dr. Ackerman as scheduled, Order Comment: Follow-up with PCP as scheduled or PRN Activity: As per Dr. Ackerman recommendations, Discharge Activity: Other (use Special Instructions) Diet: Discharge Diet: Resume usual diet as tolerated Follow-Up Appointments Follow Up with ELLIOT LOPEZ JR, JR, MD-ORT When 09/29/2021 10:00 AM EST Where: [address] [facility] [address] [place] [address]- Medications What How Much When Instructions Next Dose acetaminophen (acetaminophen 500 mg oral tablet) 2 Tablet(s) Oral Three Times A Day Duration: 30 Day(s) 1 pm aspirin (aspirin 81 mg oral delayed release tablet) 1 Tablet(s) Oral Two Times A Day Duration: 45 Day(s) 9 PM cefadroxil (cefadroxil 500 mg oral capsule) 1 Capsule(s) Oral Every 12 hours Duration: 3 Day(s) 9 PM docusate (docusate sodium 100 mg oral tablet) 1 Tablet(s) Oral Two Times A Day as needed for for constipation 9 PM ondansetron (ondansetron 4 mg oral tablet) 1 Tablet(s) Oral Every 8 Hours NEEDED oxyCODONE (oxyCODONE 5 mg oral tablet) See instructions Take 1-2 tablets by mouth every 4-6 hours as needed for severe pain 5 PM traMADol (traMADol 50 mg oral tablet) See instructions Take 1-2 tablets by mouth every 6 hours as needed for moderate pain 7 PM meloxicam (Mobic 15 mg oral tablet) 1 Tablet(s) Oral Every Day 09/18 cyanocobalamin (Vitamin B12 1000 mcg oral tablet) 1 Tablet(s) Oral Every Day 09/18 hydrochlorothiazide-valsartan (hydroCHLOROthiazide-valsartan 12.5 mg-320 mg oral tablet) 1 Tablet(s) Oral Every Day 09/18 levothyroxine 25 Microgram(s) Oral Every Day 09/18 memantine (Namenda 10 mg oral tablet) 1 Tablet(s) Oral Two Times A Day 9 PM sotalol 40 Milligram(s) Oral Two Times A Day 9 PM Take your medications faithfully. Do NOT skip medication. Do NOT stop taking medications without the direction of a physician. Carry a list of your medications with you at all times, and take this medication list with you to your first follow up visit. Report any side effects. Avoid herbal remedies unless discussed with your physician. As part of your treatment plan, your physician may have prescribed a limited course of a controlled substance. This medication may be given to help people with moderate or severe pain or for other medical conditions, but there are risks involved with treatment. Common side effects may include nausea, constipation, drowsiness, sweating, itching, dry mouth, and rash. More serious side effects may include cognitive and motor impairment, like problems with thinking, concentrating, alertness, and movement (e.g. slowed reflexes), and driving and operating heavy machinery can be dangerous. It is important for you to talk to your physician if you have these side effects or questions. These controlled substances can produce physical dependence and be habit-forming if taken for an extended period of time, which means that the body has gotten used to them and may experience withdrawal symptoms if they are abruptly stopped. Withdrawal symptoms can include runny nose, sweating, goose bumps, diarrhea, abdominal cramping, rapid heartbeat, difficulty sleeping, and nervousness. Please dispose of unused and medications per your retail pharmacy guidance. Allergies Benadryl (hyper) Immunizations This Visit No Immunizations Found Education Materials What to expect after the Procedure: After the procedure, it is common to have: ??? Pain and swelling. ??? A small amount of blood or clear fluid coming from your incision for up to 7 days ??? It is normal to have a moderate amount of bleeding from the site of the drain that was pulled on the morning after surgery. You can hold pressure on the area for 3-5 minutes and cover with a bandage as needed. Diet: ??? Resume usual diet ??? No alcoholic beverages while taking pain medication ??? Drink 8-10 glasses of water a day to prevent constipation from pain medication ??? Increase fiber to help prevent constipation. Straining can cause increased pressure and pain in your incision area ??? Increase protein to promote healing Driving: ??? Do not drive until your health care provider approves. Ask your health care provider when it is safe to drive if you have an immobilizer on your knee. ??? Do not drive or operate heavy machinery while taking prescription pain medicine. ??? Do not drive for 24 hours if you received a sedative. Activity: ??? Do not lift anything that is heavier than 10 lb (4.5 kg) until your health care provider approves. ??? No strenuous activity ??? Avoid high-impact activities, including running, jumping rope, and jumping jacks. ??? Avoid sitting for a long time without moving. Get up and move around at least every few hours. ??? Keep legs elevated while seated and place surgery leg on 2-3 pillows, this will decrease swelling ??? Continue using walker until cleared by physical therapy Bathing: ??? Do not take baths, swim, or use a hot tub for one month after surgery. ??? May shower on the third day after surgery by covering incision with Glad Brand Press and Seal saran wrap. After showering, dry off completely BEFORE removing saran wrap. ??? Use Press and Seal saran wrap to shower for one month after surgery ??? You must be seated to shower until you are no longer using the walker Other: ??? Use ice therapy for 20-30 minutes at a time and leave off for 20-30 minutes at a time. Always keep a towel or cloth between the ice pack and your skin ??? Continue to use Incentive Spirometer 10 times an hour while awake for one month to help prevent pneumonia ??? Leave Mepilex dressing on until follow-up appointment. ??? ASA 81mg twice a day for 45 days. Contact a health care provider if: ??? You have more redness, swelling, or pain around your incision. ??? You have more fluid or blood coming from your incision. ??? Your incision or drain site feels warm to the touch. ??? You have pus or a bad smell coming from your incision. ??? You have a fever. ??? Your incision breaks open after your health care provider removes your sutures, skin glue, or adhesive tape. ??? Your prosthesis feels loose. ??? You have knee pain that does not go away. Get help right away if you have: ??? Pain or swelling in your calf or thigh ??? Shortness of breath or diffiulty breathing ??? chest pain DVT: Blood Clot Blood clots are a common risk after an orthopedic surgery Symptoms: ??? Swelling of your leg or arm, especially if one side is much worse. ??? Warmth and redness of your leg or arm, especially if one side is much worse. ??? Pain in your arm or leg. If the clot is in your leg, symptoms may be more noticeable or worse when you stand or walk. ??? A feeling of pins and needles, if the clot is in the arm. The symptoms of a DVT that has traveled to the lungs (pulmonary embolism, PE) usually start suddenly and include: ??? Shortness of breath while active or at rest. ??? Coughing or coughing up blood or blood-tinged mucus. ??? Chest pain that is often worse with deep breaths. ??? Rapid or irregular heartbeat. ??? Feeling light-headed or dizzy. ??? Fainting. ??? Feeling anxious. ??? Sweating. There may also be pain and swelling in a leg if that is where the blood clot started. How is this prevented? Exercise regularly. For at least 30 minutes every day, engage in: -Activity that involves moving your arms and legs. -Activity that encourages good blood flow through your body by increasing your heart rate. ??? Exercise your arms and legs every hour during long-distance travel (over 4 hours). ??? Drink plenty of water and avoid drinking alcohol while traveling. ??? Avoid sitting or lying in bed for long periods of time without moving your legs. ??? Maintain a weight that is appropriate for your height. Ask your health care provider what weight is healthy for you. ??? If you are a woman who is over 35 years of age, avoid unnecessary use of medicines that contain estrogen. These include control pills. ??? Do not smoke, especially if you take estrogen medicines. If you need help quitting, ask your health care provider. ??? Wear compression stockings (if told by your health care provider) to help prevent blood clots from forming. High Fiber/High Protein Diet High fiber foods: To prevent constipation Grains Whole-grain breads. Multigrain cereal. Oats and oatmeal. Brown rice. Barley. Bulgur wheat. Millet. Bran muffins. Popcorn. [place] wafer crackers. Vegetables Sweet potatoes. Spinach. Kale. Artichokes. Cabbage. Broccoli. Green peas. Carrots. Squash. Fruits Berries. Pears. Apples. Oranges. Avocados. Prunes and raisins. Dried figs. Meats and Other Protein Sources [place], kidney, simon, and soy beans. Split peas. Lentils. Nuts and seeds. Dairy Fiber-fortified yogurt. Beverages Fiber-fortified soy milk. Fiber-fortified orange juice. Other Fiber bars. High-protein foods: To promote healing High-protein foods contain 4 grams (4 g) or more of protein per serving. They include: ??? Beef, ground sirloin (cooked) ??? 3 oz have 24 g of protein. ??? Cheese (hard) ??? 1 oz has 7 g of protein. ??? Chicken breast, boneless and skinless (cooked) ??? 3 oz have 13.4 g of protein. ??? Cottage cheese ??? 1/2 cup has 13.4 g of protein. ??? Egg ??? 1 egg has 6 g of protein. ??? Fish, filet (cooked) ??? 1 oz has 6???7 g of protein. ??? Garbanzo beans (canned or cooked) ??? 1/2 cup has 6???7 g of protein. ??? Kidney beans (canned or cooked) ??? 1/2 cup has 6???7 g of protein. ??? Brito (cooked) ??? 3 oz has 24 g of protein. ??? Milk ??? 1 cup (8 oz) has 8 g of protein. ??? Nuts (peanuts, pistachios, almonds) ??? 1 oz has 6 g of protein. ??? Peanut butter ??? 1 oz has 7???8 g of protein. ??? Pork tenderloin (cooked) ??? 3 oz has 18.4 g of protein. ??? Pumpkin seeds ??? 1 oz has 8.5 g of protein. ??? Soybeans (roasted) ??? 1 oz has 8 g of protein. ??? Soybeans (cooked) ??? 1/2 cup has 11 g of protein. ??? Soy milk ??? 1 cup (8 oz) has 5???10 g of protein. ??? Soy or vegetable randy ??? 1 randy has 11 g of protein. ??? Taylor seeds ??? 1 oz has 5.5 g of protein. ??? Tofu (firm) ??? 1/2 cup has 20 g of protein. ??? Tuna (canned in water) ??? 3 oz has 20 g of protein. ??? Yogurt ??? 6 oz has 8 g of protein. Fall Prevention ??? Use night lights. ??? Install grab bars by the toilet and in the tub and shower. Do not use towel bars as grab bars. ??? Use non-skid mats or decals on the floor of the tub or shower. ??? If you need to sit down while you are in the shower, use a plastic, non-slip stool. ??? Keep the floor dry. Immediately clean up any water that spills on the floor. ??? Remove soap buildup in the tub or shower on a regular basis. ??? Remove throw rugs and other tripping hazards from the floor. ??? Place frequently used items in lywc-rv-yexws places ??? Keep electrical cables out of the way. ??? Do not leave any items on the stairs. ??? Make sure that there are handrails on both sides of the stairs. Fix handrails that are broken or loose. Make sure that handrails are as long as the stairways. ??? Check any carpeting to make sure that it is firmly attached to the stairs. Fix any carpet that is loose or worn. ??? Avoid having throw rugs at the top or bottom of stairways, or secure the rugs with carpet tape to prevent them from moving. ??? Wear closed-toe shoes that fit well and support your feet. Wear shoes that have rubber soles or low heels. ??? Use mobility aids as needed, such as canes, walkers, scooters, and crutches. ??? Turn on lights if it is dark. Replace any light bulbs that burn out. ??? Set up furniture so that there are clear paths. Keep the furniture in the same spot. ??? Be aware of any and all pets. ??? Review your medicines with your healthcare provider. Some medicines can cause dizziness or changes in blood pressure, which increase your risk of falling. Hand Washing You should wash your hands whenever you think they are dirty. You should also wash your hands: ??? After: ??? Working or playing outside. ??? Touching an animal or its toys or leash. ??? Handling livestock. ??? Using the bathroom. ??? Using household wet char conveyor tender or toxic chemicals. ??? Touching or taking out the garbage. ??? Touching anything dirty around your home. ??? Handling soiled clothes or rags. ??? Taking care of a sick child. This includes touching used tissues, toys, and clothes. ??? Sneezing, coughing, or blowing your nose. ??? Using public transportation. ??? Shaking hands. ??? Using a phone, including your mobile phone. ??? Touching money. ??? Before and after: ??? Preparing food. ??? Feeding a baby or young child. ??? Eating. ??? Visiting or taking care of someone who is sick. ??? Changing a diaper. ??? Changing a bandage (dressing) or taking care of an injury or wound. ??? Giving or taking medicine. If soap and [...] 4. Repeat the process for each step. ??? Always keep both feet within the width of the walker's legs or wheels. ??? When using your walker, you should not feel like you need to lean forward or to the side to keep your hands on the handgrips. ??? Make sure you are following any weight-bearing instructions that your health care provider has given you. ??? Be careful not to let the walker get too far ahead of you as you walk. ??? If your walker does not glide well [...] 5. Step down with your stronger leg. General Anesthesia, Adult, Care After This sheet [...] activities are safe for you. ??? Take [id number]-igi-[id number] and prescription medicines only as told by [...] provider. Document Revised: 10/20/2018 Document Reviewed: 06/02/2018 [employer] Patient Education ?? 2020 [employer] tramadol (TRAM a dol) ConZip, Qdolo, Ultram, Ultram ER What is the most important information I should know about tramadol? MISUSE OF THIS MEDICINE CAN CAUSE ADDICTION, OVERDOSE, OR . Keep this medicine where others cannot get to it. Tramadol should not be given to a child younger than 12 years old, or anyone younger than 18 years old who recently had surgery to remove the tonsils or adenoids. Ultram ER should not be given to anyone younger than 18 years old. Taking tramadol during may cause life-threatening withdrawal symptoms in the . Fatal side effects may occur if you use also use alcohol or other drugs that cause drowsiness or slow breathing. What is tramadol? Tramadol is an pain medicine similar to an opioid. Tramadol is used to treat moderate to severe pain. The extended-release form of tramadol is for tdyxyx-tsn-uktjo treatment of pain. This form of tramadol is not for use on an as-needed basis for pain. Tramadol may also be used for purposes not listed in this medication guide. What should I discuss with my healthcare provider before taking tramadol? You should not take tramadol if you are allergic to it, or if you have: ?? severe asthma or breathing problems; ?? a stomach or bowel obstruction (including paralytic ileus); ?? if you have recently used alcohol, sedatives, tranquilizers, or narcotic medications; or ?? if you have used an MAO inhibitor in the past 14 days (such as isocarboxazid, linezolid, methylene blue injection, phenelzine, or tranylcypromine). Tramadol should not be given to a child younger than 12 years old. Ultram ER should not be given to anyone younger than 18 years old. Do not give tramadol to anyone younger than 18 years old who recently had surgery to remove the tonsils or adenoids. Seizures have occurred in some people taking tramadol. Your seizure risk may be higher if you have ever had: ?? a head injury, epilepsy or other seizure disorder; ?? drug or alcohol addiction; or ?? a metabolic disorder. Tell your doctor if you have ever had: ?? breathing problems, sleep apnea; ?? liver or kidney disease; ?? urination problems; ?? problems with your gallbladder, pancreas, or thyroid; ?? a stomach disorder; or ?? mental illness, or suicide attempt. If you use tramadol during , your baby could be born with life-threatening withdrawal symptoms, and may need medical treatment for several weeks. Ask a doctor before using tramadol if you are . Tell your doctor if you notice severe drowsiness or slow breathing in the nursing baby. How should I take tramadol? Follow the directions on your prescription label and read all medication guides. Never use tramadol in larger amounts, or for longer than prescribed. Tell your doctor if you feel an increased urge to take more of this medicine. Never share tramadol with another person, especially someone with a history of drug addiction. MISUSE CAN CAUSE ADDICTION, OVERDOSE, OR . Keep the medicine where others cannot get to it. Selling or giving away this medicine is against the law. Stop taking all other opioid medications when you start taking tramadol. Tramadol can be taken with or without food, but take it the same way each time. Swallow the capsule or tablet whole to avoid exposure to a potentially fatal overdose. Do not crush, chew, break, open, or dissolve. Measure liquid medicine with the supplied syringe or a dose-measuring device (not a kitchen spoon). Never crush or break a tramadol pill to inhale the powder or mix it into a liquid to inject the drug into your vein. This practice has resulted in . You may have withdrawal symptoms if you stop using tramadol suddenly. Ask your doctor before stopping the medicine. Store at room temperature away from moisture and heat. Keep track of your medicine. You should be aware if anyone is using it improperly or without a prescription. Do not keep leftover tramadol. Just one dose can cause in someone using it accidentally or improperly. Ask your pharmacist where to locate a drug take-back disposal program. If there is no take-back program, mix the leftover medicine with cat litter or coffee grounds in a sealed plastic bag throw the bag in the trash. What happens if I miss a dose? Since tramadol is used for pain, you are not likely to miss a dose. Skip any missed dose if it is almost time for your next dose. Do not use two doses at one time. What happens if I overdose? Seek emergency medical attention or call the Poison Help line at . An overdose can be fatal, especially in a child or other person using the medicine without a prescription. Overdose symptoms may include severe drowsiness, pinpoint pupils, slow breathing, or no breathing. Your doctor may recommend you get naloxone (a medicine to reverse an opioid overdose) and keep it with you at all times. A person caring for you can give the naloxone if you stop breathing or don't wake up. Your caregiver must still get emergency medical help and may need to perform CPR (cardiopulmonary resuscitation) on you while waiting for help to arrive. Anyone can buy naloxone from a pharmacy or local health department. Make sure any person caring for you knows where you keep naloxone and how to use it. What should I avoid while taking tramadol? Do not drink alcohol. Dangerous side effects or could occur. Avoid driving or hazardous activity until you know how this medicine will affect you. Dizziness or drowsiness can cause falls, accidents, or severe injuries. What are the possible side effects of tramadol? Get emergency medical help if you have signs of an allergic reaction (hives, difficult breathing, swelling in your face or throat) or a severe skin reaction (fever, sore throat, burning in your eyes, skin pain, red or purple skin rash that spreads and causes blistering and peeling). Tramadol can slow or stop your breathing, and may occur. A person caring for you should give naloxone and/or seek emergency medical attention if you have slow breathing with long pauses, blue colored lips, or if you are hard to wake up. Call your doctor at once if you have: ?? noisy breathing, sighing, shallow breathing, breathing that stops during sleep; ?? a slow heart rate or weak pulse; ?? a light-headed feeling, like you might pass out; ?? seizure (convulsions); or ?? low cortisol levels--nausea, vomiting, loss of appetite, dizziness, worsening tiredness or weakness. Seek medical attention right away if you have symptoms of serotonin syndrome, such as: agitation, hallucinations, fever, sweating, shivering, fast heart rate, muscle stiffness, twitching, loss of coordination, nausea, vomiting, or diarrhea. Serious breathing problems may be more likely in older adults and people who are debilitated or have wasting syndrome or chronic breathing disorders. Common side effects may include: ?? constipation, nausea, vomiting, stomach pain; ?? dizziness, drowsiness, tiredness; ?? headache; or ?? itching. This is not a complete list of side effects and others may occur. Call your doctor for medical advice about side effects. You may report side effects to FDA at 4-725-ZPA-2504. What other drugs will affect tramadol? You may have breathing problems or withdrawal symptoms if you start or stop taking certain other medicines. Tell your doctor if you also use an antibiotic, antifungal medication, heart or blood pressure medication, seizure medication, or medicine to treat HIV or hepatitis C. Many other drugs can be dangerous when used with tramadol. Tell your doctor if you also use: ?? medicine for allergies, asthma, blood pressure, motion sickness, irritable bowel, or overactive bladder; ?? other opioid medicines; ?? a benzodiazepine sedative like Valium, Klonopin, or Xanax; ?? sleep medicine, muscle relaxers, or other drugs that make you drowsy; or ?? drugs that affect serotonin, such as antidepressants, stimulants, or medicine for migraines or Parkinson's disease. This list is not complete. Other drugs may affect tramadol, including prescription and rhxu-zbo-auddsdh medicines, vitamins, and herbal products. Not all possible interactions are listed here. Many other drugs can be dangerous when used with tramadol. Tell your doctor if you also use: ?? medicine for allergies, asthma, blood pressure, motion sickness, irritable bowel, or overactive bladder; ?? other opioid medicines; ?? a benzodiazepine sedative like Valium, Klonopin, or Xanax; ?? sleep medicine, muscle relaxers, or other drugs that make you drowsy; ?? drugs that affect serotonin, such as antidepressants, stimulants, or medicine for migraines or Parkinson's disease. ?? drugs that affect serotonin levels in your body--a stimulant, or medicine for depression, Parkinson's disease, migraine headaches, serious infections, or nausea and vomiting. This list is not complete. Many other drugs may affect tramadol. This includes prescription and oirt-lcd-vlnxvyj medicines, vitamins, and herbal products. Not all possible drug interactions are listed here. Where can I get more information? Your doctor or pharmacist can provide more information about tramadol. Remember, keep this and all other medicines out of the reach of children, never share your medicines with others, and use this medication only for the indication prescribed. Every effort has been made to ensure that the information provided by [employer] is accurate, up-to-date, and complete, but no guarantee is made to that effect. Drug information contained herein may be time sensitive. [employer] information has been compiled for use by healthcare practitioners and consumers in the [place] and therefore [employer] does not warrant that uses outside of the [place] are appropriate, unless specifically indicated otherwise. [employer] drug information does not endorse drugs, diagnose patients or recommend therapy. [employer] drug information is an informational resource designed to assist licensed healthcare practitioners in caring for their patients and/or to serve consumers viewing this service as a supplement to, and not a substitute for, the expertise, skill, knowledge and judgment of healthcare practitioners. The absence of a warning for a given drug or drug combination in no way should be construed to indicate that the drug or drug combination is safe, effective or appropriate for any given patient. [facility] does not assume any responsibility for any aspect of healthcare administered with the aid of information [employer] provides. The information contained herein is not intended to cover all possible uses, directions, precautions, warnings, drug interactions, allergic reactions, or adverse effects. If you have questions about the drugs you are taking, check with your doctor, nurse or pharmacist. Copyright 7511-4468 [facility] [employer]. Version: 22.02. Revision Date: 04/14/2021. meloxicam (oral/injection) (ferdinand OKS i irais) Anjeso, Mobic, Qmiiz ODT, Vivlodex What is the most important information I should know about meloxicam? Meloxicam can increase your risk of fatal heart attack or stroke. Do not use this medicine just before or after heart bypass surgery (coronary artery bypass graft, or CABG). Meloxicam may also cause stomach or intestinal bleeding, which can be fatal. What is meloxicam? Meloxicam is a nonsteroidal anti-inflammatory drug (NSAID) that is used to treat osteoarthritis or rheumatoid arthritis in adults. Meloxicam is also used to treat juvenile rheumatoid arthritis in children who are at least 2 years old. The Anjeso brand of meloxicam is used to treat moderate to severe pain in adults. Vivlodex is for use only in adults. Qmiiz is for adults and children weighing at least 132 pounds (60 kilograms). Meloxicam may also be used for purposes not listed in this medication guide. What should I discuss with my healthcare provider before taking meloxicam? Meloxicam can increase your risk of fatal heart attack or stroke, even if you don't have any risk factors. Do not use this medicine just before or after heart bypass surgery (coronary artery bypass graft, or CABG). Meloxicam may also cause stomach or intestinal bleeding, which can be fatal. These conditions can occur without warning while you are using meloxicam, especially in older adults. You should not use meloxicam if you are allergic to it, or if you have ever had an asthma attack or severe allergic reaction after taking aspirin or an NSAID. You should not take meloxicam disintegrating tablets (Qmiiz ODT) if you have phenylketonuria (PKU). This form of meloxicam contains phenylalanine. Tell your doctor if you have ever had: ?? heart disease, high blood pressure, high cholesterol, diabetes, or if you smoke; ?? a heart attack, stroke, or blood clot; ?? ulcers or bleeding in your stomach; ?? asthma; ?? kidney disease (or if you are on dialysis); ?? liver disease; or ?? fluid retention. If you are , you should not take meloxicam unless your doctor tells you to. Taking an NSAID during the last 20 weeks of can cause serious heart or kidney problems in the unborn baby and possible complications with your . Meloxicam may cause a delay in ovulation (the release of an egg from an ovary). You should not take meloxicam if you are undergoing fertility treatment, or are otherwise trying to get . It may not be safe to breastfeed while using this medicine. Ask your doctor about any risk. Meloxicam is not approved for use by anyone younger than 2 years old. How should I take meloxicam? Follow all directions on your prescription label and read all medication guides. Use the lowest dose that is effective in treating your condition. Meloxicam oral is taken by mouth. Meloxicam injection is given as an infusion into a vein. A healthcare provider will give you this injection. You may take meloxicam oral with or without food. Remove an orally disintegrating tablet from the package only when you are ready to take the medicine. Place the tablet in your mouth and allow it to dissolve, without chewing. Swallow several times as the tablet dissolves. Your dose needs may change if you switch to a different brand, strength, or form of this medicine. Avoid medication errors by using only the form and strength your doctor prescribes. Meloxicam doses are based on weight (especially in children and teenagers). Your dose needs may change if you gain or lose weight. If you use this medicine long-term, you may need frequent medical tests. Store meloxicam tablets or capsules at room temperature, away from moisture and heat. Keep the bottle tightly closed when not in use. What happens if I miss a dose? Take the medicine as soon as you can, but skip the missed dose if it is almost time for your next dose. Do not take two doses at one time. What happens if I overdose? Seek emergency medical attention or call the Poison Help line at . What should I avoid while taking meloxicam? Avoid alcohol. Heavy drinking can increase your risk of stomach bleeding. Avoid taking aspirin while you are taking meloxicam, unless your doctor tells you to. Ask a doctor or pharmacist before using other medicines for pain, fever, swelling, or cold/flu symptoms. They may contain ingredients similar to meloxicam (such as aspirin, ibuprofen, ketoprofen, or naproxen). What are the possible side effects of meloxicam? Get emergency medical help if you have signs of an allergic reaction (hives, difficult breathing, swelling in your face or throat) or a severe skin reaction (fever, sore throat, burning eyes, skin pain, red or purple skin rash with blistering and peeling). Get emergency medical help if you have signs of a heart attack or stroke: chest pain spreading to your jaw or shoulder, sudden numbness or weakness on one side of the body, slurred speech, leg swelling, feeling short of breath. Stop using meloxicam and call your doctor at once if you have: ?? the first sign of any skin rash, no matter how mild; ?? shortness of breath (even with mild exertion); ?? swelling or rapid weight gain; ?? signs of stomach bleeding--bloody or tarry stools, coughing up blood or vomit that looks like coffee grounds; ?? liver problems--nausea, upper stomach pain, itching, tired feeling, flu-like symptoms, loss of appetite, dark urine, mina-colored stools, jaundice (yellowing of the skin or eyes); ?? low red blood cells (anemia)--pale skin, unusual tiredness, feeling light-headed, cold hands and feet; or ?? kidney problems--little or no urination, swelling in your feet or ankles, feeling tired or short of breath. Common side effects may include: ?? stomach pain, nausea, vomiting, heartburn; ?? diarrhea, constipation, gas; ?? dizziness; or ?? cold symptoms, flu symptoms. This is not a complete list of side effects and others may occur. Call your doctor for medical advice about side effects. You may report side effects to FDA at 9-825-AGA-2178. What other drugs will affect meloxicam? Ask your doctor before using meloxicam if you take an antidepressant. Taking certain antidepressants with an NSAID may cause you to bruise or bleed easily. Tell your doctor about all your other medicines, especially: ?? cyclosporine; ?? lithium; ?? methotrexate; ?? pemetrexed; ?? sodium polystyrene sulfonate (Kayexalate); ?? a blood thinner (warfarin, Coumadin, Jantoven); ?? heart or blood pressure medication, including a diuretic or 'water pill'; or ?? steroid medicine (such as prednisone). This list is not complete. Other drugs may affect meloxicam, including prescription and yddc-tfw-woevusg medicines, vitamins, and herbal products. Not all possible drug interactions are listed here. Where can I get more information? Your pharmacist can provide more information about meloxicam. Remember, keep this and all other medicines out of the reach of children, never share your medicines with others, and use this medication only for the indication prescribed. Every effort has been made to ensure that the information provided by [employer] is accurate, up-to-date, and complete, but no guarantee is made to that effect. Drug information contained herein may be time sensitive. [employer] information has been compiled for use by healthcare practitioners and consumers in the [place] and therefore [employer] does not warrant that uses outside of the [place] are appropriate, unless specifically indicated otherwise. [employer] drug information does not endorse drugs, diagnose patients or recommend therapy. [employer] drug information is an informational resource designed to assist licensed healthcare practitioners in caring for their patients and/or to serve consumers viewing this service as a supplement to, and not a substitute for, the expertise, skill, knowledge and judgment of healthcare practitioners. The absence of a warning for a given drug or drug combination in no way should be construed to indicate that the drug or drug combination is safe, effective or appropriate for any given patient. [facility] does not assume any responsibility for any aspect of healthcare administered with the aid of information [facility] provides. The information contained herein is not intended to cover all possible uses, directions, precautions, warnings, drug interactions, allergic reactions, or adverse effects. If you have questions about the drugs you are taking, check with your doctor, nurse or pharmacist. Copyright 0280-3932 [employer] Version: 14.. Revision Date: 09/02/2020. oxycodone (ox i KOE done) Oxaydo, OxyCONTIN, Oxyfast, OxyIR, Roxicodone, Xtampza ER What is the most important information I should know about oxycodone? MISUSE OF OPIOID MEDICINE CAN CAUSE ADDICTION, OVERDOSE, OR . Keep the medication in a place where others cannot get to it. Taking opioid medicine during may cause life-threatening withdrawal symptoms in the . Fatal side effects can occur if you use opioid medicine with alcohol, or with other drugs that cause drowsiness or slow your breathing. What is oxycodone? Oxycodone is an opioid pain medication used to treat moderate to severe pain. The extended-release form of oxycodone is for twpmrt-dae-rzfym treatment of pain and should not be used on an as-needed basis for pain. Oxycodone may also be used for purposes not listed in this medication guide. What should I discuss with my healthcare provider before using oxycodone? You should not use oxycodone if you are allergic to it, or if you have: ?? severe asthma or breathing problems; or ?? a blockage in your stomach or intestines. You should not use oxycodone unless you are already using a similar opioid medicine and are tolerant to it. Most brands of oxycodone are not approved for use in people under 18. OxyContin should not be given to a child younger than 11 years old. Tell your doctor if you have ever had: ?? breathing problems, sleep apnea; ?? a head injury, or seizures; ?? drug or alcohol addiction, or mental illness; ?? liver or kidney disease; ?? urination problems; or ?? problems with your gallbladder, pancreas, or thyroid. If you use opioid medicine while you are , your baby could become dependent on the drug. This can cause life-threatening withdrawal symptoms in the baby after it is born. Babies born dependent on opioids may need medical treatment for several weeks. Ask a doctor before using opioid medicine if you are . Tell your doctor if you notice severe drowsiness or slow breathing in the nursing baby. How should I use oxycodone? Follow the directions on your prescription label and read all medication guides. Never use oxycodone in larger amounts, or for longer than prescribed. Tell your doctor if you feel an increased urge to take more of this medicine. Never share opioid medicine with another person, especially someone with a history of drug abuse or addiction. MISUSE CAN CAUSE ADDICTION, OVERDOSE, OR . Keep the medication in a place where others cannot get to it. Selling or giving away opioid medicine is against the law. Stop taking all other bgxgef-ugn-sfopu opioid pain medicines when you start taking extended-release oxycodone. Take oxycodone with food. Swallow the capsule or tablet whole to avoid exposure to a potentially fatal overdose. Do not crush, chew, break, open, or dissolve. If you cannot swallow a capsule whole, open it and sprinkle the medicine into a spoonful of pudding or applesauce. Swallow the mixture right away without chewing. Do not save it for later use. Never crush or break an oxycodone pill to inhale the powder or mix it into a liquid to inject the drug into your vein. This can cause in . Measure liquid medicine carefully. Use the dosing syringe provided, or use a medicine dose-measuring device (not a kitchen spoon). You should not stop using oxycodone suddenly. Follow your doctor's instructions about tapering your dose. Store at room temperature, away from heat, moisture, and light. Keep track of your medicine. Oxycodone is a drug of abuse and you should be aware if anyone is using your medicine improperly or without a prescription. Do not keep leftover opioid medication. Just one dose can cause in someone using this medicine accidentally or improperly. Ask your pharmacist where to locate a drug take-back disposal program. If there is no take-back program, flush the unused medicine down the toilet. What happens if I miss a dose? Since oxycodone is used for pain, you are not likely to miss a dose. Skip any missed dose if it is almost time for your next dose. Do not use two doses at one time. What happens if I overdose? Seek emergency medical attention or call the Poison Help line at . An opioid overdose can be fatal, especially in a child or other person using the medicine without a prescription. Overdose symptoms may include severe drowsiness, pinpoint pupils, slow breathing, or no breathing. Your doctor may recommend you get naloxone (a medicine to reverse an opioid overdose) and keep it with you at all times. A person caring for you can give the naloxone if you stop breathing or don't wake up. Your caregiver must still get emergency medical help and may need to perform CPR (cardiopulmonary resuscitation) on you while waiting for help to arrive. Anyone can buy naloxone from a pharmacy or local health department. Make sure any person caring for you knows where you keep naloxone and how to use it. What should I avoid while using oxycodone? Do not drink alcohol. Dangerous side effects or could occur. Avoid driving or operating machinery until you know how oxycodone will affect you. Dizziness or severe drowsiness can cause falls or other accidents. Avoid medication errors. Always check the brand and strength of oxycodone you get from the pharmacy. What are the possible side effects of oxycodone? Get emergency medical help if you have signs of an allergic reaction: hives; difficult breathing; swelling of your face, lips, tongue, or throat. Opioid medicine can slow or stop your breathing, and may occur. A person caring for you should give naloxone and/or seek emergency medical attention if you have slow breathing with long pauses, blue colored lips, or if you are hard to wake up. Call your doctor at once if you have: ?? noisy breathing, sighing, shallow breathing, breathing that stops during sleep; ?? a slow heart rate or weak pulse; ?? a light-headed feeling, like you might pass out; ?? confusion, unusual thoughts or behavior; ?? seizure (convulsions); ?? low cortisol levels-- nausea, vomiting, loss of appetite, dizziness, worsening tiredness or weakness; or ?? high levels of serotonin in the body--agitation, hallucinations, fever, sweating, shivering, fast heart rate, muscle stiffness, twitching, loss of coordination, nausea, vomiting, diarrhea. Serious breathing problems may be more likely in older adults and in those who are debilitated or have wasting syndrome or chronic breathing disorders. Common side effects may include: ?? drowsiness, headache, dizziness, tiredness; or ?? constipation, stomach pain, nausea, vomiting. This is not a complete list of side effects and others may occur. Call your doctor for medical advice about side effects. You may report side effects to FDA at 6-881-NEA-6631. What other drugs will affect oxycodone? You may have breathing problems or withdrawal symptoms if you start or stop taking certain other medicines. Tell your doctor if you also use an antibiotic, antifungal medication, heart or blood pressure medication, seizure medication, or medicine to treat HIV or hepatitis C. Opioid medication can interact with many other drugs and cause dangerous side effects or . Be sure your doctor knows if you also use: ?? cold or allergy medicines, bronchodilator asthma/COPD medication, or a diuretic ('water pill'); ?? medicines for motion sickness, irritable bowel syndrome, or overactive bladder; ?? other opioids--opioid pain medicine or prescription cough medicine; ?? a sedative like Valium--diazepam, alprazolam, lorazepam, Xanax, Klonopin, Versed, and others; ?? drugs that make you sleepy or slow your breathing--a sleeping pill, muscle relaxer, medicine to treat mood disorders or mental illness; or ?? drugs that affect serotonin levels in your body--a stimulant, or medicine for depression, Parkinson's disease, migraine headaches, serious infections, or nausea and vomiting. This list is not complete and many other drugs may affect oxycodone. This includes prescription and mnph-kvm-mnoveyv medicines, vitamins, and herbal products. Not all possible drug interactions are listed here. Where can I get more information? Your pharmacist can provide more information about oxycodone. Remember, keep this and all other medicines out of the reach of children, never share your medicines with others, and use this medication only for the indication prescribed. Every effort has been made to ensure that the information provided by [employer] is accurate, up-to-date, and complete, but no guarantee is made to that effect. Drug information contained herein may be time sensitive. [employer] information has been compiled for use by healthcare practitioners and consumers in the [place] and therefore [employer] does not warrant that uses outside of the [place] are appropriate, unless specifically indicated otherwise. [employer] drug information does not endorse drugs, diagnose patients or recommend therapy. [employer] drug information is an informational resource designed to assist licensed healthcare practitioners in caring for their patients and/or to serve consumers viewing this service as a supplement to, and not a substitute for, the expertise, skill, knowledge and judgment of healthcare practitioners. The absence of a warning for a given drug or drug combination in no way should be construed to indicate that the drug or drug combination is safe, effective or appropriate for any given patient. [employer] does not assume any responsibility for any aspect of healthcare administered with the aid of information [employer] provides. The information contained herein is not intended to cover all possible uses, directions, precautions, warnings, drug interactions, allergic reactions, or adverse effects. If you have questions about the drugs you are taking, check with your doctor, nurse or pharmacist. Copyright 8452-2896 [employer] Version: 14.02. Revision Date: 11/27/2020. oxycodone (ox i KOE done) Oxaydo, OxyCONTIN, Oxyfast, OxyIR, Roxicodone, Xtampza ER What is the most important information I should know about oxycodone? MISUSE OF OPIOID MEDICINE CAN CAUSE ADDICTION, OVERDOSE, OR . Keep the medication in a place where others cannot get to it. Taking opioid medicine during may cause life-threatening withdrawal symptoms in the . Fatal side effects can occur if you use opioid medicine with alcohol, or with other drugs that cause drowsiness or slow your breathing. What is oxycodone? Oxycodone is an opioid pain medication used to treat moderate to severe pain. The extended-release form of oxycodone is for bmvvaz-zuf-jcmbv treatment of pain and should not be used on an as-needed basis for pain. Oxycodone may also be used for purposes not listed in this medication guide. What should I discuss with my healthcare provider before using oxycodone? You should not use oxycodone if you are allergic to it, or if you have: ?? severe asthma or breathing problems; or ?? a blockage in your stomach or intestines. You should not use oxycodone unless you are already using a similar opioid medicine and are tolerant to it. Most brands of oxycodone are not approved for use in people under 18. OxyContin should not be given to a child younger than 11 years old. Tell your doctor if you have ever had: ?? breathing problems, sleep apnea; ?? a head injury, or seizures; ?? drug or alcohol addiction, or mental illness; ?? liver or kidney disease; ?? urination problems; or ?? problems with your gallbladder, pancreas, or thyroid. If you use opioid medicine while you are , your baby could become dependent on the drug. This can cause life-threatening withdrawal symptoms in the baby after it is born. Babies born dependent on opioids may need medical treatment for several weeks. Ask a doctor before using opioid medicine if you are . Tell your doctor if you notice severe drowsiness or slow breathing in the nursing baby. How should I use oxycodone? Follow the directions on your prescription label and read all medication guides. Never use oxycodone in larger amounts, or for longer than prescribed. Tell your doctor if you feel an increased urge to take more of this medicine. Never share opioid medicine with another person, especially someone with a history of drug abuse or addiction. MISUSE CAN CAUSE ADDICTION, OVERDOSE, OR . Keep the medication in a place where others cannot get to it. Selling or giving away opioid medicine is against the law. Stop taking all other [id number] opioid pain medicines when you start taking extended-release oxycodone. Take oxycodone with food. Swallow the capsule or tablet whole to avoid exposure to a potentially fatal overdose. Do not crush, chew, break, open, or dissolve. If you cannot swallow a capsule whole, open it and sprinkle the medicine into a spoonful of pudding or applesauce. Swallow the mixture right away without chewing. Do not save it for later use. Never crush or break an oxycodone pill to inhale the powder or mix it into a liquid to inject the drug into your vein. This can cause in . Measure liquid medicine carefully. Use the dosing syringe provided, or use a medicine dose-measuring device (not a kitchen spoon). You should not stop using oxycodone suddenly. Follow your doctor's instructions about tapering your dose. Store at room temperature, away from heat, moisture, and light. Keep track of your medicine. Oxycodone is a drug of abuse and you should be aware if anyone is using your medicine improperly or without a prescription. Do not keep leftover opioid medication. Just one dose can cause in someone using this medicine accidentally or improperly. Ask your pharmacist where to locate a drug take-back disposal program. If there is no take-back program, flush the unused medicine down the toilet. What happens if I miss a dose? Since oxycodone is used for pain, you are not likely to miss a dose. Skip any missed dose if it is almost time for your next dose. Do not use two doses at one time. What happens if I overdose? Seek emergency medical attention or call the Poison Help line at . An opioid overdose can be fatal, especially in a child or other person using the medicine without a prescription. Overdose symptoms may include severe drowsiness, pinpoint pupils, slow breathing, or no breathing. Your doctor may recommend you get naloxone (a medicine to reverse an opioid overdose) and keep it with you at all times. A person caring for you can give the naloxone if you stop breathing or don't wake up. Your caregiver must still get emergency medical help and may need to perform CPR (cardiopulmonary resuscitation) on you while waiting for help to arrive. Anyone can buy naloxone from a pharmacy or local health department. Make sure any person caring for you knows where you keep naloxone and how to use it. What should I avoid while using oxycodone? Do not drink alcohol. Dangerous side effects or could occur. Avoid driving or operating machinery until you know how oxycodone will affect you. Dizziness or severe drowsiness can cause falls or other accidents. Avoid medication errors. Always check the brand and strength of oxycodone you get from the pharmacy. What are the possible side effects of oxycodone? Get emergency medical help if you have signs of an allergic reaction: hives; difficult breathing; swelling of your face, lips, tongue, or throat. Opioid medicine can slow or stop your breathing, and may occur. A person caring for you should give naloxone and/or seek emergency medical attention if you have slow breathing with long pauses, blue colored lips, or if you are hard to wake up. Call your doctor at once if you have: ?? noisy breathing, sighing, shallow breathing, breathing that stops during sleep; ?? a slow heart rate or weak pulse; ?? a light-headed feeling, like you might pass out; ?? confusion, unusual thoughts or behavior; ?? seizure (convulsions); ?? low cortisol levels-- nausea, vomiting, loss of appetite, dizziness, worsening tiredness or weakness; or ?? high levels of serotonin in the body--agitation, hallucinations, fever, sweating, shivering, fast heart rate, muscle stiffness, twitching, loss of coordination, nausea, vomiting, diarrhea. Serious breathing problems may be more likely in older adults and in those who are debilitated or have wasting syndrome or chronic breathing disorders. Common side effects may include: ?? drowsiness, headache, dizziness, tiredness; or ?? constipation, stomach pain, nausea, vomiting. This is not a complete list of side effects and others may occur. Call your doctor for medical advice about side effects. You may report side effects to FDA at 1-335-GGW-2112. What other drugs will affect oxycodone? You may have breathing problems or withdrawal symptoms if you start or stop taking certain other medicines. Tell your doctor if you also use an antibiotic, antifungal medication, heart or blood pressure medication, seizure medication, or medicine to treat HIV or hepatitis C. Opioid medication can interact with many other drugs and cause dangerous side effects or . Be sure your doctor knows if you also use: ?? cold or allergy medicines, bronchodilator asthma/COPD medication, or a diuretic ('water pill'); ?? medicines for motion sickness, irritable bowel syndrome, or overactive bladder; ?? other opioids--opioid pain medicine or prescription cough medicine; ?? a sedative like Valium--diazepam, alprazolam, lorazepam, Xanax, Klonopin, Versed, and others; ?? drugs that make you sleepy or slow your breathing--a sleeping pill, muscle relaxer, medicine to treat mood disorders or mental illness; or ?? drugs that affect serotonin levels in your body--a stimulant, or medicine for depression, Parkinson's disease, migraine headaches, serious infections, or nausea and vomiting. This list is not complete and many other drugs may affect oxycodone. This includes prescription and [id number] medicines, vitamins, and herbal products. Not all possible drug interactions are listed here. Where can I get more information? Your pharmacist can provide more information about oxycodone. Remember, keep this and all other medicines out of the reach of children, never share your medicines with others, and use this medication only for the indication prescribed. documented in this encounter Plan of Treatment Not on file documented as of this encounter Visit Diagnoses Not on filedocumented in this encounter Care Teams Burlap Roll Coverer Relationship Specialty Start Date End Date Akhil Brown MD [address] [place] [id number] PCP - General Family Medicine 06/09/23 documented as of this encounter
--- OUTSIDE RECORDS SUMMARY | 2025-06-13 10:10 | XMS_ITS | Encounter Summary ---
Author Organization [employer] ([place], [place], [place], [place]) Address [address] [place] [address] Care Team Providers Care Business Center Manager Name Role Phone Akhil Brown MD Primary Care Provider [phone]- [phone] Encounter Details Date Type Department Care Team (Late st Contact Info) Description 09/10/2021 Transcribed Document [facility] [place] Family Medicine [facility] [place] [address] ProviderNayeli MD [address] [place] [id number] Social History Tobacco Use Types Packs/Day Years Used Date Smoking Tobacco: Never Assessed Comments Unknown Sex and Gender Information Value Date Recorded Sex Assigned at Not on file Legal Sex Female 3:37 PM CDT Gender Identity Not on file Sexual Orientation Not on file documented as of this encounter Miscellaneous Notes * Cerner Conversion Note - Nayeli Nava MD - 09/10/2021 3:22 PM TRUCK WASHER PAT Adult Entered On: 09/10/2021 15:25 EST Performed On: 09/10/2021 15:22 EST by Janie Chawla RN Vital Measurements Temperature Source : Temporal artery scanning Temperature Mode : Fahrenheit Temperature, Fahrenheit : 97.9 Deg F Clinical Temperature, C : 36.6 Deg C Pulse Method : Non-Invasive BP Device Pulse Source : Radial, Left Peripheral Pulse Rate : 67 bpm Pulse Rhythm : Regular Respiratory Rate : 16 Breaths/Min Blood Pressure Location : Arm, left upper Blood Pressure Source : Non-Invasive BP Device Blood Pressure Position : Sitting Systolic Blood Pressure : 163 mmHg (HI) Diastolic Blood Pressure : 87 mmHg Oxygen Saturation : 97 % Oxygen Therapy Mode : Room air Janie Chawla RN - 09/10/2021 15:22 EST Height and Weight, Clinical Dosing Height Source : Stated Height Entry Format : [place] Height, Feet : 5 ft(Converted to: 152 cm, 60 Inch) Height, Inches : 10 Inch(Converted to: 0 ft 10 Inch, 25.40 cm) Clinical Height : 177.8 cm Weight Source : Standing scale Weight Entry Format : Addison Clinical Dosing Weight : 75.91 kg Weight, Pounds : 167 lb Body Surface Area (BSA) : 1.94 m2 Body Mass Index : 24 kg/m2 [place] Body Weight : 68 kg Janie Chawla RN - 09/10/2021 15:22 EST Health Histories Smoking Status : Never (less than 100 in lifetime; none in last 30 days) Smokeless Tobacco Status : Never Janie Chawla RN - 09/10/2021 15:22 EST Social History (As Of: 09/10/2021 15:25:59 EST) Tobacco: Never (less than 100 in lifetime) Smoking Status. Never Smokeless Tobacco Status. (Last Updated: 09/10/2021 15:24:15 EST by Janie Chawla RN) Alcohol: Alcohol Use History No. Use in Last 12 Months: No. (Last Updated: 09/10/2021 15:24:21 EST by Janie Chawla RN) Substance Abuse: Drug Use Hx: No. Use in Last 12 Months: No. (Last Updated: 09/10/2021 15:24:26 EST by Janie Chawla RN) Nutrition/Health: Regular (Last Updated: 09/10/2021 15:24:31 EST by Janie Chawla RN) Infectious Disease History Does patient have symptoms of COVID-19? : No Has the Patient Been Tested for COVID-19 in the last 14 days? : No, Patient stated Does the Patient state known exposure to a COVID-19 positive case in the last 14 days? : No Patient Vaccinated for COVID-19 : Fully vaccinated Janie Chawla RN - 09/10/2021 15:22 EST Infectious Disease Risk Screening Grid Cough < 2 wks of unknown origin : NO Cough > 2 weeks : NO Blood in Sputum : NO Fever or self-reported Fever : NO Rash of unknown origin : NO Headache : NO Stiff neck : NO Night Sweats : NO Unexplained Weight Loss : NO Diarrhea (3 episode per day) : NO Janie Chawla RN - 09/10/2021 15:22 EST Physical contact outside [place] in the last 30 days : No Hospitalized in Foreign Country : No Infectious Disease History : Chicken pox/Shingles, Measles, Mumps INF Disease TB Screening Calc : 0 INF Disease Recent Travel Calc : 0 Janie Chawla RN - 09/10/2021 15:22 EST COVID19 PreProcedure Screening Is this an Emergent or Add on Procedure? : No Date PreProcedure COVID-19 test known? : No Has patient been isolated since the test : N/A - PreProcedure, in-person visit Exposed to COVID19 symptoms since test? : N/A - PreProcedure, in-person visit Janie Chawla RN - 09/10/2021 15:26 EST Anesthesia/Transfusion History Family History of Anesthesia Reaction : No prior transfusion(s) Transfusion History : Prior anesthesia without reaction Family History of Anesthesia Reaction : None Janie Chawla RN - 09/10/2021 15:26 EST Advance Directive Patient has Advance Directive *Q : No, patient refuses Advance Directive information Janie Chawla RN - 09/10/2021 15:26 EST [place] Suicide Severity Rating Scale (C-SSRS) CSSRS Past Month Wish to be : No CSSRS Past Month Suicidal Thoughts : No CSSRS Lifetime Suicide Behavior : No Suicide Severity Rating Score : 0 Suicide Severity Rating : No Additional Care Required at this time Janie Chawla RN - 09/10/2021 15:26 EST Psychosocial History Currently in Unsafe Situation : No Jaine Chawla RN - 09/10/2021 15:26 EST Teaching/Learning Assessment Barriers To Learning : None evident Individuals Taught : Patient Readiness to Learn : Cooperative Baseline Knowledge of Topic : Limited Readiness to Learn : Explanation, Printed materials Learning Style Preferences Patient : None Learning Style Preferences Family : None Janie Chawla RN - 09/10/2021 15:26 EST Education Topics, Periop Preadmission Perioperative Education Grid CAUTI : Verbalizes understanding IV's : Verbalizes understanding NPO Status/Directions : Verbalizes understanding Pain Management : Verbalizes understanding Postoperative Care Preparations : Verbalizes understanding Preprocedure Preparations : Verbalizes understanding Preprocedure Tests/Labs : Verbalizes understanding Remove Body Piercings : Verbalizes understanding Responsible Adult : Verbalizes understanding Take/Hold Medications Pre-Procedure : Verbalizes understanding Janie Chawla RN - 09/10/2021 15:26 EST General Info Support Person/Pt Rep Name : Ann Savage Family/Rep/Phys Notified of Admit : No Emergency Contact #1 : Ann Hale Emergency Contact #1 Emergency Contact #1 Relationship : daughter Emergency Contact #2 : . Emergency Contact #2 Phone Number : . Emergency Contact #2 Relationship : . Primary Language : Icelandic Communication Barrier : None Superintendent House Needed : No Janie Chawla RN - 09/10/2021 15:26 EST Marvin Scale Marvin Sensory Perception : Slightly limited Marvin Moisture : Occasionally moist Marvin Activity : Walks occasionally Marvin Mobility : Slightly limited Marvin Nutrition : Adequate Marvin Friction and Shear : No apparent problem Marvin Score : 18 Janie Chawla RN - 09/10/2021 15:26 EST Sleep Apnea Risk Assmt Hx of Obstructive Sleep Apnea Diagnosis : No Snore Loudly : Yes Tired, Fatigued, or Sleepy During Day : Yes Observed Stopping Breathing During Sleep : No Have/Are Being Treated for Hypertension : Yes BMI Greater Than 35 kg/m2 : No Age over 50 Years Old : Yes Neck Circumference Greater Than 40 cm : No Gender Male : No STOP-BANG Sleep Apnea Risk Level Score : 4 Janie Chawla RN - 09/10/2021 15:26 EST Electronically signed by [facility] Conversion Desktop Support Manager Cerner at 02/14/2023 9:13 AM CDT documented in this encounter Plan of Treatment Not on file documented as of this encounter Visit Diagnoses Not on filedocumented in this encounter Care Teams Business Center Manager Relationship Specialty Start Date End Date Akhil Brown MD [address] [place] [phone] PCP - General Family Medicine 06/09/23 documented as of this encounter
--- OUTSIDE RECORDS SUMMARY | 2025-06-13 10:10 | XMS_ITS | Encounter Summary ---
Author Organization [employer] ([place], [place], [place], [place]) Address [address] [place] [address] Care Team Providers Care Flame Hardening Machine Setter Name Role Phone Akhil Brown MD Primary Care Provider +1- [phone] Encounter Details Date Type Department Care Team (Late st Contact Info) Description 09/17/2021 Transcribed Document [facility] [place] [address] ProviderNayeli MD [address] [place] [address] Social History Tobacco Use Types Packs/Day Years Used Date Smoking Tobacco: Never Assessed Comments Unknown Sex and Gender Information Value Date Recorded Sex Assigned at Not on file Legal Sex Female 3:37 PM CDT Gender Identity Not on file Sexual Orientation Not on file documented as of this encounter Miscellaneous Notes * Cerner Conversion Note - Nayeli ProviderMD - 09/17/2021 2:34 PM SCREEN PRINTING CLOTH SPREADER On Going Discharge Planning Entered On: 09/17/2021 14:35 EST Performed On: 09/17/2021 14:34 EST by JARROD EMERSON RN Care Management Progress Note Designation of Choice Signed : Yes Were Referrals Sent to Post Acute Providers : Yes Does the Patient have a Floor to SNF Benefit? : No Is the Patient Meeting Medical Necessity : Yes Physician Agreeable to Move Forward with D/C Plan? : Yes Did you Attend Multidisciplinary Rounds? : Yes JARROD EMERSON RN - 09/17/2021 14:35 EST Discharge Arrangements : Patient Post-Acute Information Patient Name: KARINA WILSON Gender: Female : 45 Age: 75 Years Mae Referral(s): Service: Organization: Business Address: Phone Number: Shelter Facility [facility] [address], [place], [address] Discharge Options Discussed with Patient : Discharge transportation, DME, Short term rehabilitation JARROD EMERSON RN - 09/17/2021 14:34 EST Barriers to Discharge Identified : None identified Barriers to Discharge Unresolved : All resolved JARROD EMERSON RN - 09/17/2021 14:35 EST Patient Discharge Goal : Inpatient rehabilitation facility Patient Offered Choice/Affiliations Explained : Yes List/Info Provided Pt/Fam/Support Person : nursing home facilities JARROD EMERSON RN - 09/17/2021 14:34 EST [facility] Quality Web Info Shared w Pt/Fam : Yes JARROD EMERSON RN - 09/17/2021 14:35 EST Narrative Progress Note Narrative Progress Note : [facility] called and stated they pushed the pickup time back to 1530 or 1600. Akhil notified and suma notified. Historical Progress Note : 75 y/o female s/p RATH per Dr. Fitzgerald. Met with patient at bedside to discuss discharge needs and to verify demograpics and pcp. STATUS: patient lives alone but has family that helps her. She is iADLS PLAN: patient wants Rehab and choose [facility]. Referral sent out via [facility]. Patient has [...] a caliber arranged JARROD EMERSON RN - 09/16/21 12:51:42 JARROD EMERSON RN - 09/17/2021 14:34 EST Electronically signed by [facility] Conversion Manufacturing Engineering Director Cerner at 02/14/2023 9:03 AM CDT documented in this encounter Plan of Treatment Not on file documented as of this encounter Visit Diagnoses Not on filedocumented in this encounter Care Teams Flame Hardening Machine Setter Relationship Specialty Start Date End Date Akhil Brown MD [address] [place] [phone] PCP - General Family Medicine 06/09/23 documented as of this encounter
--- OUTSIDE RECORDS SUMMARY | 2025-06-13 10:10 | XMS_ITS | Encounter Summary ---
Author Organization [employer] ([place], [place], [place], [place]) Address [address] [place] [address] Care Team Providers Care Plastics Supervisor Name Role Phone Akhil Brown MD Primary Care Provider [phone]- [phone] Encounter Details Date Type Department Care Team (Late st Contact Info) Description 09/16/2021 Transcribed Document [facility] [place] Family Medicine [address] [place] [address] ProviderNayeli MD [address] [place] [address] Social History Tobacco Use Types Packs/Day Years Used Date Smoking Tobacco: Never Assessed Comments Unknown Sex and Gender Information Value Date Recorded Sex Assigned at Not on file Legal Sex Female 3:37 PM CDT Gender Identity Not on file Sexual Orientation Not on file documented as of this encounter Miscellaneous Notes * Cerner Conversion Note - Nayeli Nava MD - 09/16/2021 7:08 PM 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 Ackerman Admitting diagnosis 1???unilateral primary osteoarthritis right hip 2???s/p R NORMAN through anterior approach 3???right hip pain 4???A. fib 5???HTN 6???HLP 7???hypothyroidism 8???at risk for FREDA 9???memory deficit History of present illness A pleasant 75 years old white female with a history of A. fib, HTN, HLP, hypothyroidism, FREDA, memory deficit in addition to right hip pain from osteoarthritis who is after medical clearance by her PCP she underwent right total hip arthroplasty through anterior approach by Dr. Ackerman. Patient had surgery and is recovering well is awake alert cooperative responsive under no acute distress and is answering questions appropriately. Currently patient is on femoral nerve block in addition to oral pain medications as per Dr. Ackerman recommendations and the pain is under control. Patient is on DVT prophylaxis as per Dr. Ackerman protocol. Patient did not urinated yet. Patient is on scheduled bowel regimen. Patient did not started on oral nutrition yet. Patient denies any chest pain, shortness of breath, diaphoresis nausea or vomiting. PT/OT on board. Review of Systems Constitutional: No fever, No chills. Eye: No visual disturbances. Ear/Nose/Mouth/Throat: No nasal congestion, No sore throat. Respiratory: No shortness of breath, No cough. Cardiovascular: No chest pain, No tachycardia. Gastrointestinal: No nausea, No vomiting, No abdominal pain. Genitourinary: No change in urine stream. Hematology/Lymphatics: No bleeding tendency. Endocrine: No polyuria, No cold intolerance, No heat intolerance. Immunologic: Negative. Musculoskeletal: Negative. Integumentary: No rash, No pruritus. Neurologic: No confusion, No numbness, No tingling, No headache. Psychiatric: No anxiety, No depression. All other systems are negative Health Status Allergies: Allergies (1) Active Reaction [...] EST Chloraseptic Menthol 1.4% topical spray: 5 [place], Oral, [place], Q2H, PRN for Sore Throat, Routine, Start [...] sotalol: 40 mg, Oral, BID, 0 Refill(s), Home Medications (7) Active Effexor XR 150 [...] 1,000 mcg = 1 Tab, Oral, Daily , Medications (32) Active Scheduled: (12) #NaCl 0.9% [...] Oral, Q4H phenol 1.4% throat spray 5 [place], Oral, Q2H promethazine 25 mg tab 12.5 [...] replacement, right Unilateral primary osteoarthritis, right hip Histories Family History: Family history is significant for DM, HTN, CAD and cancer Procedure history: hysterectomy. cholecystectomy. [facility] surg. Social History Patient is single and lives by herself. She has 3 children. There is no history of smoking or drinking alcohol. Physical Examination VS/Measurements Vital Signs/Vital Measures 09/16/2021 18:26 EST Systolic Blood Pressure 97 mmHg Diastolic Blood Pressure 78 mmHg Temperature Source Oral Temperature Mode Fahrenheit Temperature, Fahrenheit 98.2 Deg F Clinical Temperature, C 36.8 Deg C Heart Rate Monitored 57 bpm LOW Respiratory Rate 16 Breaths/Min Oxygen Saturation 95 % Oxygen Therapy Mode Room air 09/16/2021 14:45 EST Systolic Blood Pressure 134 mmHg Diastolic Blood Pressure 70 mmHg Mean Arterial Pressure (MAP)-BMDI 85 Temperature Source Oral Temperature Mode Fahrenheit Temperature, Fahrenheit 97.2 Deg F Clinical Temperature, C 36.2 Deg C Heart Rate Monitored 61 bpm Respiratory Rate 22 Breaths/Min HI Oxygen Saturation 100 % Oxygen Therapy Mode Room air, Trach collar 09/16/2021 12:32 EST Oxygen Therapy Mode Room air 09/16/2021 10:50 EST Systolic Blood Pressure 140 mmHg Diastolic Blood Pressure 73 mmHg Temperature Source Axillary Temperature, Fahrenheit 97.8 Deg F Heart Rate Monitored 60 bpm Respiratory Rate 20 Breaths/Min Oxygen Saturation 100 % Oxygen Therapy Mode Room air 09/16/2021 10:20 EST Systolic Blood Pressure 140 mmHg Diastolic Blood Pressure 71 mmHg Mean Arterial Pressure (MAP)-BMDI 99 Temperature Source Temporal artery scanning Temperature Mode Fahrenheit Temperature, Fahrenheit 98.5 Deg F Clinical Temperature, C 36.9 Deg C Heart Rate Monitored 62 bpm Respiratory Rate 18 Breaths/Min Oxygen Saturation 97 % Oxygen Therapy Mode Room air 09/16/2021 10:15 EST Systolic Blood Pressure 150 mmHg HI Diastolic Blood Pressure 79 mmHg Mean Arterial Pressure (MAP)-BMDI 107 Heart Rate Monitored 63 bpm Respiratory Rate 19 Breaths/Min Oxygen Saturation 95 % 09/16/2021 10:10 EST Systolic Blood Pressure 138 mmHg Diastolic Blood Pressure 71 mmHg Mean Arterial Pressure (MAP)-BMDI 98 Heart Rate Monitored 64 bpm Respiratory Rate 20 Breaths/Min Oxygen Saturation 93 % LOW 09/16/2021 10:05 EST Systolic Blood Pressure 141 mmHg HI Diastolic Blood Pressure 78 mmHg Mean Arterial Pressure (MAP)-BMDI 104 Heart Rate Monitored 66 bpm Respiratory Rate 18 Breaths/Min Oxygen Saturation 94 % 09/16/2021 10:00 EST Systolic Blood Pressure 143 mmHg HI Diastolic Blood Pressure 80 mmHg Mean Arterial Pressure (MAP)-BMDI 105 Heart Rate Monitored 65 bpm Respiratory Rate 19 Breaths/Min Oxygen Saturation 93 % LOW 09/16/2021 9:55 EST Systolic Blood Pressure 136 mmHg Diastolic Blood Pressure 73 mmHg Mean Arterial Pressure (MAP)-BMDI 99 Heart Rate Monitored 73 bpm Respiratory Rate 17 Breaths/Min Oxygen Saturation 93 % LOW 09/16/2021 9:50 EST Systolic Blood Pressure 145 mmHg HI Diastolic Blood Pressure 69 mmHg Mean Arterial Pressure (MAP)-BMDI 99 Heart Rate Monitored 76 bpm Respiratory Rate 20 Breaths/Min Oxygen Saturation 96 % Oxygen Therapy Mode Room air 09/16/2021 9:43 EST Systolic Blood Pressure 142 mmHg HI Diastolic Blood Pressure 75 mmHg Mean Arterial Pressure (MAP)-BMDI 101 Temperature Source Temporal artery scanning Temperature Mode Fahrenheit Temperature, Fahrenheit 98.6 Deg F Clinical Temperature, C 37 Deg C Heart Rate Monitored 84 bpm Respiratory Rate 16 Breaths/Min Oxygen Saturation 98 % Oxygen Therapy Mode Room air 09/16/2021 6:53 EST Systolic Blood Pressure 181 mmHg HI Diastolic Blood Pressure 89 mmHg Temperature Source Temporal artery scanning Temperature Mode Fahrenheit Temperature, Fahrenheit 98.1 Deg F Clinical Temperature, C 36.7 Deg C Pulse Rhythm Regular Peripheral Pulse Rate 69 bpm Respiratory Rate 16 Breaths/Min Oxygen Saturation 98 % Oxygen Therapy Mode Room air General: Alert and oriented, No acute distress. Eye: Pupils are equal, round and reactive to light, Normal conjunctiva, Vision unchanged. HENT: Normocephalic, Tympanic membranes are clear, Normal hearing, Oral mucosa is moist, No pharyngeal erythema, No sinus tenderness. Neck: Supple, Non-tender, No carotid bruit, No jugular venous distention, No lymphadenopathy, No thyromegaly. Respiratory: Lungs are clear to auscultation, Respirations are non-labored, Breath sounds are equal, Symmetrical chest wall expansion, No chest wall tenderness. Cardiovascular: Normal rate, Regular rhythm, No murmur, No gallop, Good pulses equal in all extremities, Normal peripheral perfusion, No edema. Gastrointestinal: Soft, Non-tender, Non-distended, Normal bowel sounds, No organomegaly. Genitourinary: No costovertebral angle tenderness, No inguinal tenderness, No urethral discharge, No lesions. Lymphatics: No lymphadenopathy neck, axilla, groin. Musculoskeletal: Normal range of motion, Normal strength, No tenderness, No swelling, No deformity, Normal gait. Integumentary: Warm, [place], Intact, No pallor, No rash, WOUND STABLE. Neurologic: Alert, Oriented, Normal sensory, Normal motor function, No focal deficits, Cranial Nerves II-XII are grossly intact, Normal deep tendon reflexes. Psychiatric: Cooperative, Appropriate mood & affect, Normal judgment, Non-suicidal. Review / Management Results review: Lab results 09/16/2021 7:19 EST ABO/Rh Repeat AB POS 09/16/2021 7:18 EST ABO/Rh AB POS Antibody Screen Negative ABSC . Impression and Plan Diagnosis Unilateral primary osteoarthritis, right hip - Admitting, Medical. Status post total hip replacement, right - Admitting, Medical. Right hip pain - Admitting, Medical. Atrial fibrillation - Discharge, Medical. Hypertension - Discharge, Medical. Hyperlipidemia - Discharge, Medical. Hypothyroid - Discharge, Medical. At risk for sleep apnea - Discharge, Medical. Memory deficit - Discharge, Medical. Course: Plan/Respirex @ BS and encourage patient to use. Sleep apnea precautions if needed. C-pap at night if needed. Hold all BP meds if BSP < 130 MMHg. If SBP < 90 mmHg, you may give 500 ml NS IVF over one hour. ACT: CONSULT PT/OT as per Dr. vega justin. For urinary retention use bladder scanner, you may anchor FC. If no or low UOP you may give 250 mL NS IV over one hour. AM Labs BMP & Hgb/HCT. If pt. spikes fever > 101* F, encourage pt to use Respirex first, then you may give Tylenol 650 mg PO/LA x 1. If no response in 2 hours, you may get blood cx. x2, chest x-ray, sputum CX, S, gram stain x3, UA, C&S. Patient may have chloroseptic spray or throat lozenges for soar throat. DVT prophylaxis. If at any time the HGB is less than 8 type and cross then transfuse 2 units of PRBCs. Premedicate with Tylenol 650 mg PO and Benadryl 25mg PO. Electrolytes Replacement Protocol. Pain control. Close monitoring fluid and electrolytes. Fall risk precautions. Sleep apnea precautions. Stress ulcer prophylaxis. TwT 85 mn patient seen and examined and reexamined, medical record reviewed, vitals reviewed, medications seen reviewed and reconciled, discussed with Pharm.D., discussed with the patient and with the staff, discussed with PT/OT, orders placed, consult note dictated . documented in this encounter Plan of Treatment Not on file documented as of this encounter Visit Diagnoses Not on filedocumented in this encounter Care Teams Plastics Supervisor Relationship Specialty Start Date End Date Akhli Brown MD [address] [place] [phone] PCP - General Family Medicine 06/09/23 documented as of this encounter
--- OUTSIDE RECORDS SUMMARY | 2025-06-13 10:10 | XMS_ITS | Encounter Summary ---
Author Organization [employer] ([place], [place], [place], [place]) Address [address] [place] [address] Care Team Providers Care Tilt Wall Supervisor Name Role Phone Akhil Brown MD Primary Care Provider [phone]- [phone] Encounter Details Date Type Department Care Team (Late st Contact Info) Description 09/16/2021 Transcribed Document [facility] [place] [address] [place] [address] ProviderNayeli MD [address] [place] [address] Social History Tobacco Use Types Packs/Day Years Used Date Smoking Tobacco: Never Assessed Comments Unknown Sex and Gender Information Value Date Recorded Sex Assigned at Not on file Legal Sex Female 3:37 PM CDT Gender Identity Not on file Sexual Orientation Not on file documented as of this encounter Miscellaneous Notes * Cerner Conversion Note - Nayeli Nava MD - 09/16/2021 10:43 AM 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 Dent in person concerning the consult. Nannette Quick, [facility] Unit Coord - 09/16/2021 10:56 EST documented in this encounter Plan of Treatment Not on file documented as of this encounter Visit Diagnoses Not on filedocumented in this encounter Care Teams Tilt Wall Supervisor Relationship Specialty Start Date End Date Akhil Brown MD [address] [place] [phone] PCP - General Family Medicine 06/09/23 documented as of this encounter
--- OUTSIDE RECORDS SUMMARY | 2025-06-13 10:10 | XMS_ITS | Encounter Summary ---
Author Organization [employer] ([place], [place], [place], [place]) Address [address] [place] [address] Care Team Providers Care Pie Filler Name Role Phone Akhil Brown MD Primary Care Provider +1- [phone] Encounter Details Date Type Department Care Team (Late st Contact Info) Description 09/17/2021 Transcribed Document [facility] [place] [address] [place] [address] ProviderNayeli MD [address] [place] [address] Social History Tobacco Use Types Packs/Day Years Used Date Smoking Tobacco: Never Assessed Comments Unknown Sex and Gender Information Value Date Recorded Sex Assigned at Not on file Legal Sex Female 3:37 PM CDT Gender Identity Not on file Sexual Orientation Not on file documented as of this encounter Miscellaneous Notes * Cerner Conversion Note - Nayeli Nava MD - 09/17/2021 11:04 AM 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 Patient: KARINA WILSON Age: 75 years Sex: Female : 1945 Associated Diagnoses: Unilateral primary osteoarthritis, right hip; Status post total hip replacement, right; Right hip pain; Atrial fibrillation; Hypertension; Hyperlipidemia; Hypothyroid; At risk for sleep apnea; Memory deficit Author: ROBB GRACE MD-INT Date of admission 09/16/2021 Date of discharge 09/17/2021 PCP Terrence Batista Orthopedic surgeon, MD Pernell Discharge physician, hospitalist, internal medicine, Brandi Joe MD Discharge diagnosis 1???unilateral primary osteoarthritis right hip 2???s/p R NORMAN through anterior approach 3???right hip pain Other discharge diagnosis 1???A. fib 2???HTN 3???HLP 4???hypothyroidism 5???at risk for FREDA 6???memory deficit Surgery See operative report dictated by Dr. Ackerman History of present illness, past medical history, past surgical history, family history, social history allergies See H&P and consult note Brief history of present illness and course during hospital stay --------- A pleasant 75 years old white female with a history of A. fib, HTN, HLP, hypothyroidism, FREDA, no motor deficit, in addition to right TPN who is after medical clearance by her PCP underwent R NORMAN through anterior approach by Dr. Ackerman. Postoperatively patient was awake alert cooperative responsive under no acute distress and was answering questions appropriately. Initially she was on femoral nerve block in addition to oral pain medications and her pain was under control. She is started on oral nutrition initially was clear liquid diet which was advanced to high-fiber diet and was tolerating well oral p.o. intake. There was no chest pain, shortness of breath, diaphoresis nausea or vomiting. She did not have any trouble with urination and her urine output is adequate. She is on scheduled bowel regimen. She is started on PT/OT but patient has some memory issues in addition she is unsteady unstable and has no support at home and for her wrist is not her sister go to long term facility to continue her care and rehab. Patient is stable for discharge Basic Information ???Seen and examined today, ???Doing well ???Had a good night last night ???Awake alert cooperative responsive under no acute distress ???Pain under control ???High spirit ???Eager to go to rehab ???No chest pain or trouble breathing ???Participating well with PT/OT ???No headache or dizziness when he got up with PT/OT ???No soreness after PT/OT ???Released by PT/OT to go to rehab ???Tolerating well oral p.o. intake ???No nausea or vomiting ???No trouble with urination ???Urine output is adequate ???Vitals reviewed ???Labs reviewed ???Lab results discussed with the patient ???Released by Dr. Ackerman to go to rehab ???Discharge medications seen, reviewed and reconciled ???DVT prophylaxis and anticoagulation as per Dr Ackerman protocol ???Patient is medically stable Review of Systems Constitutional: No weakness, No fatigue. Eye: No recent visual problem, No double vision, No visual disturbances. Ear/Nose/Mouth/Throat: No nasal congestion, No sore throat. Respiratory: No shortness of breath, No cough, No wheezing. Cardiovascular: No chest pain, No tachycardia. Gastrointestinal: No nausea, No vomiting. Genitourinary: Negative. Musculoskeletal: Negative. Integumentary: No rash, No pruritus. Neurologic: Alert and oriented X4, no dizziness. Health Status Allergies: Allergies (1) Active Reaction [...] EST Chloraseptic Menthol 1.4% topical spray: 5 [place], Oral, [place], Q2H, PRN for Sore Throat, Routine, Start [...] Infuse Over: 30 Minute(s), 09/16/21 6:26:00 EST Prescriptions Prescribed Mobic 15 mg oral tablet: 1 Tab, Oral, Daily, # 30 Tab, 0 Refill(s), called to pharmacy (Rx) acetaminophen 500 mg oral tablet: 2 Tab, Oral, TID, X 30 Day(s), # 180 Tab, 0 Refill(s), called to pharmacy (Rx) aspirin 81 mg oral delayed release tablet: 1 Tab, Oral, Tab, BID, # 90 Tab, 0 Refill(s), called to pharmacy (Rx) cefadroxil 500 mg oral capsule: 1 Cap, Oral, Q12H, X 3 Day(s), # 6 Cap, 0 Refill(s), called to pharmacy (Rx) docusate sodium 100 mg oral tablet: 1 Tab, Oral, Tab, BID, PRN for constipation, # 60 Tab, 0 Refill(s), called to pharmacy (Rx) ondansetron 4 mg oral tablet: 1 Tab, Oral, Q8H, # 30 Tab, 0 Refill(s), called to pharmacy (Rx) oxyCODONE 5 mg oral tablet: See Instructions, Take 1-2 tablets by mouth every 4-6 hours as needed for severe pain, # 20 Tab, 0 Refill(s), called to pharmacy (Rx) traMADol 50 mg oral tablet: See Instructions, Take 1-2 tablets by mouth every 6 hours as needed for moderate pain, # 60 Tab, 0 Refill(s), called to pharmacy (Rx) Documented Medications Documented Namenda 10 mg oral tablet: 1 Tab, Oral, Tab, BID, # 60 Tab, 0 Refill(s) Vitamin B12 1000 mcg oral tablet: 1 Tab, Oral, Daily, 0 Refill(s) hydroCHLOROthiazide-valsartan 12.5 mg-320 mg oral tablet: 1 Tab, Oral, Tab, Daily, # 90 Tab, 0 Refill(s) levothyroxine: 25 mcg, Oral, Daily, 0 Refill(s) sotalol: 40 mg, [...] Oral, Q4H phenol 1.4% throat spray 5 [place], Oral, Q2H promethazine 25 mg tab 12.5 [...] hip Physical Examination VS/Measurements Vital Measurements 09/17/2021 9:53 EST Systolic Blood Pressure 118 mmHg Diastolic Blood Pressure 79 mmHg Mean Arterial Pressure (MAP)-BMDI 83 Temperature Source Oral Temperature Mode Fahrenheit Temperature, Fahrenheit 98.7 Deg F Clinical Temperature, C 37.1 Deg C Heart Rate Monitored 63 bpm Oxygen Saturation 98 % General: Alert and oriented, No acute distress. [...] Gram/dL LOW Hct 29.6 % LOW . Condition: Stable. Discharge Plan Discharge Summary Plan Discharge Status: stable. Orders Order Profile (Selected) Inpatient Orders Ordered Discharge Notification Pharmacy: Start: 09/17/21 11:03:46 EST Discharge: Start: 09/17/21 11:03:00 EST, Discharge to: Correction unit/facility. Diagnosis Unilateral primary osteoarthritis, right hip - Admitting, Medical. Status post total hip replacement, right - Admitting, Medical. Right hip pain - Admitting, Medical. Atrial fibrillation - Discharge, Medical. Hypertension - Discharge, Medical. Hyperlipidemia - Discharge, Medical. Hypothyroid - Discharge, Medical. At risk for sleep apnea - Discharge, Medical. Memory deficit - Discharge, Medical. Course Improving. Stable. Plan/ pt is HD & CLINICALLY STABLE AFEBRILE OK TO D/C HOME ALL CONSULTANTS AGREE FOR HER D/C HOME ON HH / OUTPT.REHAB. . Orders Order Profile (Selected) Prescriptions Prescribed Mobic 15 mg oral tablet: 1 Tab, Oral, Daily, # 30 Tab, 0 Refill(s), called to pharmacy (Rx) acetaminophen 500 mg oral tablet: 2 Tab, Oral, TID, X 30 Day(s), # 180 Tab, 0 Refill(s), called to pharmacy (Rx) aspirin 81 mg oral delayed release tablet: 1 Tab, Oral, Tab, BID, # 90 Tab, 0 Refill(s), called to pharmacy (Rx) cefadroxil 500 mg oral capsule: 1 Cap, Oral, Q12H, X 3 Day(s), # 6 Cap, 0 Refill(s), called to pharmacy (Rx) docusate sodium 100 mg oral tablet: 1 Tab, Oral, Tab, BID, PRN for constipation, # 60 Tab, 0 Refill(s), called to pharmacy (Rx) ondansetron 4 mg oral tablet: 1 Tab, Oral, Q8H, # 30 Tab, 0 Refill(s), called to pharmacy (Rx) oxyCODONE 5 mg oral tablet: See Instructions, Take 1-2 tablets by mouth every 4-6 hours as needed for severe pain, # 20 Tab, 0 Refill(s), called to pharmacy (Rx) traMADol 50 mg oral tablet: See Instructions, Take 1-2 tablets by mouth every 6 hours as needed for moderate pain, # 60 Tab, 0 Refill(s), called to pharmacy (Rx) Documented Medications Documented Namenda 10 mg oral tablet: 1 Tab, Oral, Tab, BID, # 60 Tab, 0 Refill(s) Vitamin B12 1000 mcg oral tablet: 1 Tab, Oral, Daily, 0 Refill(s) hydroCHLOROthiazide-valsartan 12.5 mg-320 mg oral tablet: 1 Tab, Oral, Tab, Daily, # 90 Tab, 0 Refill(s) levothyroxine: 25 mcg, Oral, Daily, 0 Refill(s) sotalol: 40 mg, Oral, BID, 0 Refill(s). Impression and Plan twt 57 mn patient seen and examined, medical record reviewed, labs reviewed, vitals reviewed, medications reviewed and reconciled, discussed with Pharm.D., discussed with the patient, discussed with the staff, discussed with PT/OT, discussed with case management orders placed, discharge summary note dictated. Electronically signed by Grace, [facility] Conversion Consumer Insights Intern Cerner at 02/14/2023 9:20 AM CDT documented in this encounter Plan of Treatment Not on file documented as of this encounter Visit Diagnoses Not on filedocumented in this encounter Care Teams Pie Filler Relationship Specialty Start Date End Date Akhil Brown MD [address] [place] [phone] PCP - General Family Medicine 06/09/23 documented as of this encounter
--- OUTSIDE RECORDS SUMMARY | 2025-06-13 10:10 | XMS_ITS | Clinical Summary ---
Author Organization [employer] ([place], [place], [place], [place]) Address [address] [place] [address] Care Team Providers Care Missile And Missile Checkout Technician Name Role Phone Akhil Brown MD Primary Care Provider +1- [phone] Allergies Active Allergy Reactions Criticality Noted Date Comments Diphenhydramine Other (See Comments) Low 03/25/2021 Medications sotaloL (BETAPACE) 80 MG tablet 40 mg, Oral, BID, 0 Refill(s) 1 Active meloxicam (MOBIC) 15 MG tablet Take 1 tablet (15 mg total) by mouth daily. 3 Active Xarelto 20 mg tablet SMARTSI Tablet(s) By Mouth Every Evening 3 Active levothyroxine (SYNTHROID, LEVOTHROID) 25 MCG tablet Take 1 tablet (25 mcg total) by mouth daily. 3 Active valsartan-hydroc hlorothiazide (DIOVAN-HCT) 320-12.5 mg per tablet Take 1 tablet by mouth. Active venlafaxine (EFFEXOR-XR) 150 MG 24 hr capsule Take 1 capsule (150 mg total) by mouth daily. 3 Active cetirizine (ZyrTEC) 10 MG tablet Take 1 tablet (10 mg total) by mouth daily. 3 Active donepeziL (ARICEPT) 10 MG tabletIndication s:Moderate dementia with agitation, unspecified dementia type (HCC) Take 0.5 tab in AM for 1 week then 1 tab daily. 30 tablet 11 4 Active cholecalciferol, vitamin D3, 1,250 mcg (50,000 unit) capsule Take 1 cap weekly for 8 weeks then once monthly. 12 capsule 1 4 Active pyridoxine, vitamin B6, (vitamin B-6) 50 MG tablet Take 1 tablet (50 mg total) by mouth daily. 30 tablet 11 4 06/05/20 25 thiamine (vitamin B-1) 100 MG tablet Take 1 tablet (100 mg total) by mouth daily. 30 tablet 11 4 06/05/20 25 Active Problems Problem Noted Date Diagnosed Date Hip instability, left 07/01/2023 S/P total left hip arthroplasty 07/01/2023 Preop examination 06/16/2023 Primary osteoarthritis of left hip 06/16/2023 Paroxysmal A-fib 06/16/2023 Primary hypertension 06/16/2023 Thyroid disease 06/16/2023 Depression 06/16/2023 Family History Medical History Relation Name Comments COPD Father No Known Problem Mother Relation Name Status Comments Father Mother Social History Tobacco Use Types Packs/Day Years Used Date Smoking Tobacco: Never Smokeless Tobacco: Never Tobacco Cessation:Counseling Given: Not Answered Alcohol Use Standard Drinks/Week Comments Never 0 (1 standard drink = 0.6 oz pur e alcohol) PRAPARE - Transportation Answer Date Re corded In the past 12 months, has l ack of transportation kept you from medical appointments or from getting medications? No 07/01/2023 Lack of Transportation (Non-Medical) Not on file 07/01/2023 Food Insecurity Answer Date Recorded Food run out past 12 months Not on file 10/31 Food did not last past 12 months Not on file 11/18/2023 Employment Answer Date Recorded Help finding and keeping a job Not on file 0 11/18/2023 Family and Community Support Answer James e Recorded Help with Day to Day Activities Not on file 11/18/2023 Feeling Lonely or Isolated Not on file 11/18 Educational Attainment Answer Date Celestine rded Speak language other than Arabic at home Not on file 11/18/2023 Want help with school or training Not on file 11/18/2023 Substance Use Answer Date Recorded Used prescription meds for non-medical reasons N ot on file 11/18/2023 Used illegal drugs past 12 months Not on file 11/18/2023 Comments Unknown Sex and Gender Information Value Date Recorded Sex Assigned at Not on file Legal Sex Female 3:37 PM CDT Gender Identity Not on file Sexual Orientation Not on file Last Filed Vital Signs Vital Sign Reading Time Taken Comments Blood Pressure 132/82 05/31/2024 10:47 AM EDT Pulse 65 05/31/2024 10:47 AM EDT Temperature 36.7 C (98.1 F) 07/02/2023 1:47 PM EDT Respiratory Rate 18 07/02/2023 6:05 AM EDT Oxygen Saturation 94% 02/28/2024 1:23 PM EDT Inhaled Oxygen Concentration - - Weight 69.9 kg (154 lb) 05/31/2024 10:47 AM EDT Height 177.8 cm (5' 10 ) 05/31/2024 10:47 AM EDT Body Mass Index 22.1 05/31/2024 10:47 AM EDT Plan of Treatment Health Maintenance Due Date Last Done Comments DXA SCAN 1945 Hepatitis C Screening 1963 Pneumococcal 50+ years (1 of 1 - PCV) 1995 Shingles Vaccine (Zoster) (1 of 2) 1995 Medicare Initial AWV G0438 11/01/2011 Respiratory Syncytial Virus (RSV) Adult or (1 - 1-dose 75+ series) 2020 COVID-19 VACCINE (5 - 2023-2 5 season) 2024 12/03/2022, 10/16/2021, 03/27/2021, Additional history exists Falls Risk Screening 10/31/2024 Tobacco Cessation Counseling and Screening (12+) 05/31/2025 05/31/2024 Influenza Vaccine (#1) 2025 9, 12/13/2018, 07/18/2017, Additional history exists DTAP/TDAP/TD VACCINES (4 - T d or Tdap) 10/04/2029 10/04/2019, 07/18/2017, 01/05/1997 Medical Devices Implanted Type Area Tray Room Worker Device Identifier Shelf Expiration Date Model / Serial / Lot Cup Clstr-Hole Altn Pcg6 54mm [id number] - [id number] Implanted:Qty : 1 on 06/29/2023 by Pernell Fitzgerald MD at [facility] [employer] Left: Hip EXACTECH 03/16/203554 / [id number] / Liner Ntrl Grp 5 36mm Id 6 - [id number] Implanted:Qty : 1 on 06/29/2023 by Pernell Fitzgerald MD at [facility] [employer] Left: Hip EXACTECH 12/02/2027 / [id number] / Head Fem Delta 36mm +0mm - [id number] Implanted:Qty : 1 on 06/29/2023 by Pernell Fitzgerald MD at [facility] [employer] Left: Hip EXACTECH [id number] 01/31/2028 / [id number] / Stem Fem Alteon Olguin 118mm - [id number] Implanted:Qty : 1 on 06/29/2023 by Pernell Fitzgerald MD at [facility] [employer] Left: Hip EXACTECH [id number] 10/04/2026 19030- / [id number] / Head Fem Delta 36mm +0mm - [id number] Implanted:Qty : 1 on 07/01/2023 by Pernell Fitzgerald MD at [facility] [employer] Left: Hip EX[employer]ECH [id number] 01/31/2028 / [id number] / Liner Ntrl Altn Xle Grp6 36mm 6 - [id number] Implanted:Qty : 1 on 07/01/2023 by Pernell Fitzgerald MD at [facility] [employer] Left: Hip EX[employer]ECH [id number] 11/17/2027 / [id number] / [place] [address] MEDICARE PART A B HEALTH CLAIMS Advance Directives For more information, please contact: [phone] * Full Code (Latest Code Status on File) Date Activated Date Inactivated Comments 07/01/2023 12:57 PM 07/02/2023 3:27 PM * Full Code Date Activated Date Inactivated Comments 07/01/2023 9:50 AM 07/01/2023 12:57 PM If no pulse: No intervention If has pulse: Use intubation, mechanical ventilation, defibrillation, ACLS medications, or cardioversion as indicated. Call EXECUTIVE CONSULTANT * Full Code Date Activated Date Inactivated Comments 07/01/2023 9:46 AM 07/01/2023 9:50 AM * Full Code Date Activated Date Inactivated Comments 06/29/2023 10:44 AM 06/29/2023 3:37 PM * Full Code Date Activated Date Inactivated Comments 06/29/2023 6:14 AM 06/29/2023 10:44 AM Care Teams Missile And Missile Checkout Technician Relationship Specialty Start Date End Date Akhil Brown MD [address] [place] [phone] PCP - General Family Medicine 06/09/23
--- OUTSIDE RECORDS SUMMARY | 2025-06-13 10:10 | XMS_ITS | Encounter Summary ---
Author Organization [employer] ([place], [place], [place], [place]) Address [address] [place] [address] Care Team Providers Care Commercial Title Examiner Name Role Phone Akhil Brown MD Primary Care Provider +1- [phone] Encounter Details Date Type Department Care Team (Late st Contact Info) Description 09/16/2021 Transcribed Document [facility] [place] [address] ProviderNayeli MD [address] [place] [address] Social History Tobacco Use Types Packs/Day [...] Nayeli Nava MD - 09/16/2021 8:00 AM COAL LOADER [facility] [place] PACU Summary Primary Physician: ELLIOT LOPEZ JR, JR, MD-ORT Finalized Date/Time: 09/16/21 10:45:15 Pt. Name: KARINA WILSON D.O.B./Sex: 1945 Female Med Rec #: [id number] Physician: ELLIOT LOPEZ JR, JR, MD-ORT Financial #: [id number] Pt. Type: O Room/Bed: [facility] Admit/Disch: 09/16/21 04:46:00 - Institution: [facility] [place] PACU Case Times Entry 1 In PACU I 09/16/21 09:43:00 Ready for PACU 09/16/21 10:43:00 Discharge Discharge from PACU 09/16/21 10:43:00 I Last Modified By: Linh Oates RN 09/16/21 10:45:05 [facility] [place] PACU Case Times Audit 09/16/21 10:45:05 News Reel Cameraman: [email or web address] Modifier: CARRIEC <+> 1 Ready for PACU Discharge <+> 1 Discharge from PACU I Finalized By: Linh Oates RN Document Signatures Signed By: Linh Oates RN 09/16/21 10:45 documented in this encounter Plan of Treatment Not on file documented as of this encounter Visit Diagnoses Not on filedocumented in this encounter Care Teams Commercial Title Examiner Relationship Specialty Start Date End Date Akhil Brown MD [address] [place] [phone] PCP - General Family Medicine 06/09/23 documented as of this encounter
--- OUTSIDE RECORDS SUMMARY | 2025-06-13 10:10 | XMS_ITS | Encounter Summary ---
Author Organization [employer] ([place], [place], [place], [place]) Address [address] [place] [address] Care Team Providers Care Elementary Instructional Coach Name Role Phone Akhil Brown MD Primary Care Provider +1- [phone] Encounter Details Date Type Department Care Team (Late st Contact Info) Description 09/16/2021 Transcribed Document [facility] [place] [facility] [place] [address] ProviderNayeli MD [address] [place] [address] Social History Tobacco Use Types Packs/Day Years Used Date Smoking Tobacco: Never Assessed Comments Unknown Sex and Gender Information Value Date Recorded Sex Assigned at Not on file Legal Sex Female 3:37 PM CDT Gender Identity Not on file Sexual Orientation Not on file documented as of this encounter Miscellaneous Notes * Cerner Conversion Note - Nayeli ProviderMD - 09/16/2021 6:53 AM GRAY TENDER PAT Adult Entered On: 09/16/2021 6:55 EST Performed On: 09/16/2021 6:53 EST by MITCHELL ORTIZ, RN Vital Measurements Temperature Source : Temporal artery scanning Temperature Mode : Fahrenheit Temperature, Fahrenheit : 98.1 Deg F Clinical Temperature, C : 36.7 Deg C Peripheral Pulse Rate : 69 bpm Pulse Rhythm : Regular Respiratory Rate : 16 Breaths/Min Systolic Blood Pressure : 181 mmHg (HI) Diastolic Blood Pressure : 89 mmHg Oxygen Saturation : 98 % Oxygen Therapy Mode : Room air MITCHELL ORTIZ RN - 09/16/2021 6:53 EST Pain Assessment Pain Assessment : Initial assessment Pain Scale Used : 0-10 Scale MITCHELL ORTIZ RN - 09/16/2021 6:53 EST Height and Weight, Clinical Dosing Height Source : Stated Height Entry Format : [place] Height, Feet : 5 ft(Converted to: 152 cm, 60 Inch) Height, Inches : 10 Inch(Converted to: 0 ft 10 Inch, 25.40 cm) Clinical Height : 177.8 cm Weight Source : Standing scale Weight Entry Format : [place] Clinical Dosing Weight : 75.91 kg Weight, Pounds : 167 lb Body Surface Area (BSA) : 1.94 m2 Body Mass Index : 24 kg/m2 [place] Body Weight : 68 kg MITCHELL ORTIZ RN - 09/16/2021 6:53 EST Health Histories Smoking Status : Never (less than 100 in lifetime; none in last 30 days) Smokeless Tobacco Status : Never MITCHELL ORTIZ RN - 09/16/2021 6:53 EST Social History (As Of: 09/16/2021 06:55:51 EST) Tobacco: Never (less than 100 in [...] Patient Vaccinated for COVID-19 : Fully vaccinated MITCHELL ORTIZ RN - 09/16/2021 6:53 EST Infectious Disease Risk Screening Grid Cough < 2 wks of unknown origin : NO Cough > 2 weeks : NO Blood in Sputum : NO Fever or self-reported Fever : NO Rash of unknown origin : NO Headache : NO Stiff neck : NO Night Sweats : NO Unexplained Weight Loss : NO Diarrhea (3 episode per day) : NO MITCHELL ORTIZ RN - 09/16/2021 6:53 EST Physical contact outside [place] in the last 30 days : No Hospitalized in Foreign Country : No Infectious Disease History : Chicken pox/Shingles, Measles, Mumps INF Disease TB Screening Calc : 0 INF Disease Recent Travel Calc : 0 MITCHELL ORTIZ RN - 09/16/2021 6:53 EST COVID19 PreProcedure Screening Is this an Emergent or Add on Procedure? : No Date PreProcedure COVID-19 test known? : Yes Date of PreProcedure COVID-19 : 09/14/2021 EST Has patient been isolated since the test : Yes Exposed to COVID19 symptoms since test? : No MITCHELL ORTIZ RN - 09/16/2021 6:53 EST Anesthesia/Transfusion History Family History of Anesthesia Reaction : No prior transfusion(s) Blood Transfusion Acceptable to Patient : Yes Transfusion History : Prior anesthesia without reaction Family History of Anesthesia Reaction : None MITCHELL ORTIZ RN - 09/16/2021 6:53 EST Functional Assessment Functional ADL Evaluation Index EBN Bathing : Independent (2) Dressing : Independent (2) Toileting : Independent (2) Transferring Bed or Chair : Independent (2) Continence : Independent (2) Feeding : Independent (2) MITCHELL ORTIZ RN - 09/16/2021 6:53 EST ADL Index Score : 12 MITCHELL ORTIZ RN - 09/16/2021 6:53 EST Advance Directive Patient has Advance Directive *Q : No, patient refuses Advance Directive information MITCHELL ORTIZ RN - 09/16/2021 6:53 EST Spiritual/Cultural Needs Any Spiritual/Cultural Needs or Requests : Yes MITCHELL ORTIZ RN - 09/16/2021 6:53 EST [place] Suicide Severity Rating Scale (C-SSRS) CSSRS Past Month Wish to be : No CSSRS Past Month Suicidal Thoughts : No CSSRS Lifetime Suicide Behavior : No Suicide Severity Rating Score : 0 Suicide Severity Rating : No Additional Care Required at this time MITCHELL ORTIZ RN - 09/16/2021 6:53 EST Psychosocial History Currently in Unsafe Situation : No MITCHELL ORTIZ RN - 09/16/2021 6:53 EST Teaching/Learning Assessment Barriers To Learning : None evident Individuals Taught : Patient Readiness to Learn : Cooperative Readiness to Learn : Explanation Learning Style Preferences Patient : None Learning Style Preferences Family : None MITCHELL ORTIZ RN - 09/16/2021 6:53 EST Education Topics, Periop Preadmission Perioperative Education Grid IV's : Verbalizes understanding NPO Status/Directions : Verbalizes understanding Preprocedure Preparations : Verbalizes understanding Preprocedure Tests/Labs : Verbalizes understanding Responsible Adult : Verbalizes understanding MITCHELL ORTIZ RN - 09/16/2021 6:53 EST General Info Support Person/Pt Rep Name : Ann Savage Family/Rep/Phys Notified of Admit : No Emergency Contact #1 : Ann Hale Emergency Contact #1 Emergency Contact #1 Relationship : daughter Emergency Contact #2 : . Emergency Contact #2 Phone Number : . Emergency Contact #2 Relationship : . Primary Language : Greek Communication Barrier : None Diagrammer And Seamer Needed : No MITCHELL ORTIZ RN - 09/16/2021 6:53 EST Marvin Scale Marvin Sensory Perception : No impairment Marvin Moisture : Rarely moist Marvin Activity : Walks frequently Marvin Mobility : No limitation Marvin Nutrition : Excellent Marvin Friction and Shear : No apparent problem Marvin Score : 23 MITCHELL ORTIZ RN - 09/16/2021 6:53 EST Sleep Apnea Risk Assmt Hx of [...] Sleep Apnea Risk Level Score : 4 MITCHELL ORTIZ RN - 09/16/2021 6:53 EST Pain Scale Intensity : 0 MITCHELL ORTIZ RN - 09/16/2021 6:53 EST Image 4 - Images currently included in the form version of this document have not been included in the text rendition version of the form. Electronically signed by Daniel Edwards Conversion Freelance Court Stenographer Cerner at 02/14/2023 9:14 AM CDT documented in this encounter Plan of Treatment Not on file documented as of this encounter Visit Diagnoses Not on filedocumented in this encounter Care Teams Elementary Instructional Coach Relationship Specialty Start Date End Date Akhil Brown MD [address] [place] [phone] PCP - General Family Medicine 06/09/23 documented as of this encounter
--- OUTSIDE RECORDS SUMMARY | 2025-06-13 10:10 | XMS_ITS | Encounter Summary ---
Author Organization [employer] ([place], [place], [place], [place]) Address [address] [place] [address] Care Team Providers Care Finance Admin Name Role Phone Akhil Brown MD Primary Care Provider +1- [phone] Encounter Details Date Type Department Care Team (Late st Contact Info) Description 09/16/2021 Transcribed Document [facility] [place] Family Medicine [address] [place] [address] ProviderNayeli MD [address] [place] [address] Social History Tobacco Use Types Packs/Day Years Used Date Smoking Tobacco: Never Assessed Comments Unknown Sex and Gender Information Value Date Recorded Sex Assigned at Not on file Legal Sex Female 3:37 PM CDT Gender Identity Not on file Sexual Orientation Not on file documented as of this encounter Miscellaneous Notes * Cerner Conversion Note - Nayeli Nava MD - 09/16/2021 10:28 AM PROMOTIONAL DEMONSTRATOR DATE OF PROCEDURE: 09/16/2021 SURGEON: Pernell Fitzgerald Jr, MD PREOPERATIVE DIAGNOSIS: Right hip osteoarthritis. POSTOPERATIVE DIAGNOSIS: Right hip osteoarthritis. PROCEDURE PERFORMED: Direct anterior right hip replacement. ANESTHESIA: Regional plus local. COMPLICATIONS: None. BLOOD LOSS: 450 mL. Cell Saver return of 250. COMPONENTS USED: [employer] press-fit 56 acetabular component neutral poly liner to accept 36, -3.5 ceramic femoral head component, 11 standard taper wedge femoral component press-fit. DESCRIPTION OF PROCEDURE: The patient was taken to the operating room in supine position under general anesthesia, sterile prep and drape, time-out observed, IV antibiotics given. A 4-inch incision was made just lateral and distal to the anterior superior iliac spine. Deep fascia over the tensor, opened and the rectus tensor interval was opened down the circumflex vessels. These were cauterized and divided. Deep fascia was opened exposing the capsule. Capsulotomy performed and blunt retractors placed around the femoral neck with the neck osteotomy made just above the lesser trochanter at a 50 degrees angle with oscillating saw. The diseased femoral head was removed with a corkscrew and soft tissue removed from the periphery and bed of the acetabulum was removed. Sequential reaming up to size 56 was carried out. Good bleeding bone was established and a press-fit 56 cup was placed at 45 degrees abduction, 15 degrees anteversion under fluoro control with good stability. Neutral liner was impacted and seated the femur actually rotated extended and soft tissue released to allow the elevator to bring in proper position for broaching. Sequential broaching up to size 11 with good axial rotational stability was achieved, reduction with -3.5 neck length showed near equal leg lengths, slightly long on the right, but equal to the preoperative length and for stability. This was the proper length for the patient even the left leg was slightly shorter. Patient had a known osteoarthritis in the left hip. We will likely need a hip replacement on that side as well. After placing the final femoral component, the hip reduced, stability checked, and leg length confirmed to be the same. Irrigation, bleeding controlled, layered closure, sterile dressing, ice pack, and transferred the patient to the recovery room in good condition. /[id number] MD INÉS Lentz Jr/MELANI / INÉS / MODL /[id number] documented in this encounter Plan of Treatment Not on file documented as of this encounter Visit Diagnoses Not on filedocumented in this encounter Care Teams Finance Admin Relationship Specialty Start Date End Date Akhil Brown MD [address] [place] [phone] PCP - General Family Medicine 06/09/23 documented as of this encounter
--- OUTSIDE RECORDS SUMMARY | 2025-06-13 10:10 | XMS_ITS | Encounter Summary ---
Author Organization [employer] ([place], [place], [place], [place]) Address [address] [place] [address] Care Team Providers Care Refractory Mixer Name Role Phone Akhil Brown MD Primary Care Provider [phone] Encounter Details Date Type Department Care Team (Late st Contact Info) Description 09/16/2021 Transcribed Document [facility] [place] Family [place] [address] ProviderNayeli MD [address] [place] [address] Social History Tobacco Use Types Packs/Day Years Used Date Smoking Tobacco: Never Assessed Comments Unknown Sex and Gender Information Value Date Recorded Sex Assigned at Not on file Legal Sex Female 3:37 PM CDT Gender Identity Not on file Sexual Orientation Not on file documented as of this encounter Miscellaneous Notes * Cerner Conversion Note - Nayeli ProviderMD - 09/16/2021 10:43 AM PARAFFINER Evaluation, Occupational Therapy Entered On: 09/16/2021 11:41 EST Performed On: 09/16/2021 11:41 EST by DAMASO CHATTERJEE OTR/Arun General Information, OT Visit Type, OT : Initial evaluation Therapy Diagnosis, OT : aftercare following R ATHA Assisted by, OT : Physical Therapist Precautions in Place : Fall prevention measures General Information Comment, OT : pt is a pleasant 75 y.o. female admitted s/p R ATHA performed by and is WBAT. DAMASO CHATTERJEE OTR/Arun - 09/16/2021 12:05 EST Patient Orders : Order Date Order Ordering 09/16/2021 10:43 OT Evaluation and Treatment Ordered By: ELLIOT LOPEZ JR, JR, MD-ORT Active Diagnoses : No Qualifying Diagnoses Admission Date : 09/16/2021 04:46 Personal Devices : Personal Devices No Devices Recorded Assistive Devices : Assistive Devices No Devices Recorded DAMASO CHATTERJEE OTR/Arun - 09/16/2021 11:41 EST General Status Patient Received Status : Supine in bed, Other: daughter, scds , RN present Treatment Start Time : 09/16/2021 11:15 EST Patient Left Status : Up in chair, Chair alarm activated, RN/PCT informed, Family/Visitors at bedside, All needs met and within reach, Other: daughter and RN present, scds RN/PCT Informed Comment : RN Ok'd to tx, ID and verified Treatment End Time : 09/16/2021 11:31 EST Treatment Time : 16 Minute(s) DAMASO CHATTERJEE OTR/Arun - 09/16/2021 12:05 EST History and Environment, OT Living Situation, Therapy : Home Patient Lives With : Alone Persons Providing Information : Patient Home Equipment, Therapy : Walker Walker : Walker, standard Walker Comment : has an old standard walker Home Setup : One story Stairs : Yes Stair Location(s) : Outside Outside Stairs, Number of Steps : 1 DAMASO CHATTERJEE OTR/Arun - 09/16/2021 12:05 EST Prior LOF Bathing, OT : Independent Prior LOF Bed Mobility : Independent Prior LOF Upper Body Dressing, OT : Independent Prior LOF Lower Body Dressing, OT : Independent Prior LOF Toileting : Independent Prior LOF Transfer : Independent Prior LOF Grooming, OT : Independent Prior LOF for IADLs, OT : Independent DAMASO CHATTERJEE OTR/Arun - 09/16/2021 12:05 EST History and Environment Comment, OT : family lives close by DAMASO CHATTERJEE OTR/Arun - 09/16/2021 12:05 EST Upper Extremity Right UE Active ROM : WFL Right UE Strength : WFL Left UE Active ROM : WFL Left UE Strength : WFL Right UE Strength : WFL Left UE Strength : WFL DAMASO CHATTERJEE OTR/Arun - 09/16/2021 12:05 EST Self Care/Home Management, OT Lower Body Dressing Assist Level, OT : Assist, moderate Bed/Chair/WC Transfer Assist Level : Assist, minimal Bed/Chair/WC Transfer Device : Belt, gait, Walker, front wheel Bed/Chair/WC Device Comment : cues for safety to chair DAMASO CHATTERJEE OTR/Arun 09/16/2021 12:05 EST Mobility Device/Prosthesis/Wt Bearing Weight Bearing Status Maintained : Yes Weight Bearing Status : As tolerated Functional Mobility Device : Gait belt, Walker, front wheel Functional Mobility with Brace/Splint : No DAMASO CHATTERJEE OTR/Arun - 09/16/2021 12:05 EST Functional Mobility Mobility Grid Supine to Sit : Rehab Minimal assistance Sit to Stand : Rehab Minimal assistance Bed to Chair : Rehab Minimal assistance Stand to Sit : Rehab Minimal assistance DAMASO CHATTERJEE OTR/Arun 09/16/2021 12:05 EST Functional MobilityComment : gait belt, using rw pt walks to doorway with min assist and cues for safety , transfer to chair min assist and cues DAMASO CHATTERJEE OTR/Arun 09/16/2021 12:05 EST Activity Tolerance, OT Activity Comment : fair DAMASO CHATTERJEE OTR/Arun - 09/16/2021 13:04 EST Neurological/Sensory Overall Sensory Response : Intact DAMASO CHATTERJEE OTR/Arun 09/16/2021 13:04 EST Cognition Assessment, OT Orientation : Oriented x 4 DAMASO CHATTERJEE OTR/Arun 09/16/2021 13:04 EST Education OT Occupational Therapy Education Grid Activity of Daily Living Training : Returns demonstration, Needs further teaching Functional Mobility Training : Returns demonstration, Needs further teaching DAMASO CHATTERJEE OTR/Arun 09/16/2021 13:04 EST Indication Assessment, OT Occupational Therapy Indicated : Yes Problem List, OT : Impaired, activities daily living, Impaired functional mobility, Impaired, joint mobility, Impaired, standing balance, Impaired, strength, Impaired, transfers Rehabilitation Potential, OT : Good DAMASO CHATTERJEE OTR/Arun 09/16/2021 13:04 EST Plan of Care, OT OT Tx Plan/Goals Established w Patient : Yes OT Frequency Rehab : Three days per week Other OT Treatment Provided This Date : eval 8 minutes ADL 8 minutes - pt education.transfer, ADL OT Duration Rehab : Seven Days OT Treatments Planned : Activities of daily living, Balance training, Caregiver training, Functional mobility training, Safety education, Therapeutic activities DAMASO CHATTERJEE OTR/L - 09/16/2021 13:04 EST Snf Goals, OT Other LTG Grid Goal #1 Goal #2 Goal : pt to perform LB ADL min assist pt to perform functional ADL transfers CGA Date to Meet : 09/23/2021 EST 09/23/2021 EST Goal Status : Initial goal Initial goal DAMASO CHATTERJEE OTR/L - 09/16/2021 13:04 EST DAMASO CHATTERJEE OTR/L - 09/16/2021 13:04 EST Treatment Note Subjective Comment : pt agrees to tx Additional Objective Information : eval ADL Assessment : pt to benefit from skilled OT while inpt for safe return home to OF s/p R ATHA , pt is requesting rehab secondary to living alone and will not be able to take care of self . per daughter pt does have some memory deficits Plan for Treatment : skilled OT 3x/week for 7 days DAMASO CHATTERJEE OTR/L - 09/16/2021 13:04 EST Pain Assessment Pain Scaled Used : FACES Pain Score Pre-Intervention : 0 DAMASO CHATTERJEE OTR/L - 09/16/2021 13:04 EST Image 1 - Images currently included in the form version of this document have not been included in the text rendition version of the form. [facility] OT Charges OT Selfcare/Hm Mgmt Ea 15 Min : 1 OT Eval Low Complexity : 1 DAMASO CHATTERJEE OTR/L - 09/16/2021 13:04 EST documented in this encounter Plan of Treatment Not on file documented as of this encounter Visit Diagnoses Not on filedocumented in this encounter Care Teams Refractory Mixer Relationship Specialty Start Date End Date Akhil Brown MD [address] [place] [phone] PCP - General Family Medicine 06/09/23 documented as of this encounter
--- OUTSIDE RECORDS SUMMARY | 2025-06-13 10:10 | XMS_ITS | Clinical Summary ---
Author Organization Healthcare Address [address] [place] [address] Care Team Providers Care Activities Therapist Name Role Phone Veto Batista MD Primary Care Provider [phone] Allergies Active Allergy Reactions Criticality Noted Date Comments Diphenhydramine Other - please docum ent in the comment field Low 03/26/2022 Medications levothyroxine (Synthroid, Levoxyl) 25 MCG tablet Take 25 mcg by mouth 1 (one) time each day. 10/05/2021 Active Xarelto 20 MG tablet Take 20 mg by mouth 1 (one) time each day in the evening. 10/05/2021 Active venlafaxine XR (Effoxor-XR) 150 MG 24 hr capsule Take 150 mg by mouth 1 (one) time each day. 10/05/2021 Active atorvastatin (Lipitor) 10 MG tablet Take 10 mg by mouth 1 (one) time each day. 10/05/2021 Active Vitamin B-12 ER 1000 MCG tablet controlled-rele ase Take 1 tablet by mouth 1 (one) time each day. 10/05/2021 Active donepezil (Aricept) 10 MG tablet TAKE 1 TABLET BY MOUTH ONCE DAILY FOR MEMORY 10/02/2021 Active meloxicam (Mobic) 15 MG tablet Take 15 mg by mouth 1 (one) time each day. 10/05/2021 Active traMADol (Ultram) 50 MG tablet Take 50-100 mg by mouth every 6 (six) hours if needed. 06/04/2021 Active valsartan-hydro CHLOROthiazide (Diovan-HCT) 320-12.5 MG tablet Take 1 tablet by mouth 1 (one) time each day. Active cephalexin (Keflex) 500 MG capsule TAKE 1 CAPSULE BY MOUTH EVERY 12 HOURS FOR 10 DAYS 05/18/2022 Active Social History Tobacco Use Types Packs/Day Years Used Date Smoking Tobacco: Never Smokeless Tobacco: Never PHQ-2 Answer Date Recorded Patient Health Questionnaire-2 Score 1 03/26/2022 Comments Unknown Sex and Gender Information Value Date Recorded Sex Assigned at Not on file Legal Sex Female 8:04 PM EDT Gender Identity Not on file Sexual Orientation Not on file Last Filed Vital Signs Vital Sign Reading Time Taken Comments Blood Pressure 107/70 05/21/2022 1:32 PM EDT Pulse 62 05/21/2022 1:32 PM EDT Temperature 36.8 C (98.3 F) 05/21/2022 1:32 PM EDT Respiratory Rate - - Oxygen Saturation 97% 05/21/2022 1:32 PM EDT Inhaled Oxygen Concentration - - Weight 73.9 kg (163 lb) 05/21/2022 1:32 PM EDT Height 167.6 cm (5' 6 ) 05/21/2022 1:32 PM EDT Body Mass Index 26.31 05/21/2022 1:32 PM EDT Plan of Treatment Health Maintenance Due Date Last Done Comments [facility]-Bone Density Scan 1945 [facility]-Depression Screening 1945 [facility]-Infant/Child/Adol SDOH Screenings 1945 [facility]- SDOH Screenings 1963 [facility]-Adult SDOH Screenings 1963 [facility]-Pneumococcal Vaccine: 50+ Years (1 of 1 - PCV) 1995 [facility]-Zoster Vaccines (1 of 2) 1995 [facility]-RSV Vaccine: 60+ Years or (1 - 1-dose 75+ series) 2020 [id number] Vaccine ( season) 2024 10/16/2021, 03/27/2021, 02/27/2021 [facility]-Influenza Vaccine (#1) 07/01/202512/13, 07/18/2017 [facility]-DTaP,Tdap,and Td Vaccines (3 - Td or Tdap) 10/04/2029 10/04/2019, 07/18/2017, 01/05/1997 HPV Vaccines Aged Out No longer eligi ble based on patient's age to complete this topic [facility]-HIB Vaccines Aged Out No longer e ligible based on patient's age to complete this topic [facility]-Hepatitis A Vaccines Aged Out No longer eligible based on patient's age to complete this topic [facility]-IPV Vaccines Aged Out No longer e ligible based on patient's age to complete this topic [facility]-Rotavirus Vaccines Aged Out No lo nger eligible based on patient's age to complete this topic Insurance MEDICARE [facility] Care Teams Activities Therapist Relationship Specialty Start Date End Date Veto Batista MD [address] [place] [address] PCP - General 03/13/21
--- OUTSIDE RECORDS SUMMARY | 2025-06-13 10:10 | XMS_ITS | Encounter Summary ---
Author Organization [employer] ([place], [place], [place], [place]) Address [address] [place] [address] Care Team Providers Care Calculation Reviewer Name Role Phone Akhil Brown MD Primary Care Provider [phone] Encounter Details Date Type Department Care Team (Late st Contact Info) Description 09/17/2021 Transcribed Document [facility] [place] Family [place] [address] ProviderNayeli MD [address] [place] [address] Social History Tobacco Use Types Packs/Day Years Used Date Smoking Tobacco: Never Assessed Comments Unknown Sex and Gender Information Value Date Recorded Sex Assigned at Not on file Legal Sex Female 3:37 PM CDT Gender Identity Not on file Sexual Orientation Not on file documented as of this encounter Miscellaneous Notes * Cerner Conversion Note - Nayeli ProviderMD - 09/17/2021 11:03 AM MANAGER TRADE INDRA Entered On: 09/17/2021 11:04 EST Performed On: 09/17/2021 11:03 EST by ROBB GRACE MD-INT INDRA Indication of use for OOCS : Acute Illness OOCS Misuse Suspected : Other Was INDRA queried : Other Patient Advised to seek OOCS Treatment : Other Treatment to Include Limited Supply of OOCS : Other INDRA Result : Other INDRA Other Notes : As per Dr. Ackerman office records Patient cancelled on OOCS : Other INDRA : . ROBB GRACE MD-INT - 09/17/2021 11:03 EST Electronically signed by [facility] Conversion Circulation Crew Leader Cerner at 02/14/2023 9:06 AM CDT documented in this encounter Plan of Treatment Not on file documented as of this encounter Visit Diagnoses Not on filedocumented in this encounter Care Teams Calculation Reviewer Relationship Specialty Start Date End Date Akhil Brown MD [address] [place] [phone] PCP - General Family Medicine 06/09/23 documented as of this encounter
--- OUTSIDE RECORDS SUMMARY | 2025-06-13 10:10 | XMS_ITS | Referral Summary ---
Author Organization [employer] ([place], [place], [place], [place]) Address [address] [place] [address] Care Team Providers Care Director [place] Name Role Phone Akhil Brown MD Primary Care Provider [phone] Allergies Active Allergy Reactions Criticality Noted Date [...] hypertension 06/16/2023 Thyroid disease 06/16/2023 Depression 06/16/2023 Social History Tobacco Use Types Packs/Day Years [...] Date Celestine rded Speak language other than Luxembourgish at home Not on file 11/18/2023 Want [...] 05/31/2024 10:47 AM EDT Plan of Treatment Not on file Medical Devices Implanted Type Area Tour Counselor Device Identifier Shelf Expiration Date Model / Serial / Lot Cup Clstr-Hole Altn Pcg6 54mm [id number] - [id number] Implanted:Qty : 1 on 06/29/2023 by Pernell Fitzgerald MD at [facility] [employer] Left: Hip EXACTECH 03/16/20350654 / [id number] / Liner Ntrl Grp 5 36mm Id 6 - [id number] Implanted:Qty : 1 on 06/29/2023 by Pernell Fitzgerald MD at [facility] [employer] Left: Hip EXACTECH 12/02/20270536 / [id number] / Head Fem Delta 36mm +0mm - [id number] Implanted:Qty : 1 on 06/29/2023 by Pernell Fitzgerald MD at [facility] [employer] Left: Hip EXACTECH [id number] 01/31/2028 / [id number] / Stem Fem Alteon Olguin 118mm [id number] Implanted:Qty : 1 on 06/29/2023 by Pernell Fitzgerald MD at [facility] [employer] Left: Hip EXACTECH [id number] 10/04/2026 [id number] / Head Fem Delta 36mm +0mm - [id number] Implanted:Qty : 1 on 07/01/2023 by Pernell Fitzgerald MD at [facility] [employer] Left: Hip EXACTECH [id number] 01/31/2028 170-36 / [id number] / Liner Ntrl Altn Xle Grp6 36mm 6 - [id number] Implanted:Qty : 1 on 07/01/2023 by Pernell Fitzgerald MD at [facility] [employer] Left: Hip EXACTECH [id number] 11/17/2027 / [id number] / [place] [id number] MEDICARE PART A B [facility] CLAIMS Advance Directives For more information, please contact: [phone] * Full Code (Latest Code Status on File) Date Activated Date Inactivated Comments 07/01/2023 12:57 PM 07/02/2023 3:27 PM * Full Code Date Activated Date Inactivated Comments 07/01/2023 9:50 AM 07/01/2023 12:57 PM If no pulse: No intervention If has pulse: Use intubation, mechanical ventilation, defibrillation, ACLS medications, or cardioversion as indicated. Call BUFFING AND SUEDING MACHINE OPERATOR * Full Code Date Activated Date Inactivated Comments 07/01/2023 9:46 AM 07/01/2023 9:50 AM * Full Code Date Activated Date Inactivated Comments 06/29/2023 10:44 AM 06/29/2023 3:37 PM * Full Code Date Activated Date Inactivated Comments 06/29/2023 6:14 AM 06/29/2023 10:44 AM Care Teams Director [place] Relationship Specialty Start Date End Date Akhil Brown MD [address] [place] [phone] PCP - General Family Medicine 06/09/23
--- OUTSIDE RECORDS SUMMARY | 2025-06-13 10:10 | XMS_ITS | Encounter Summary ---
Author Organization [employer] ([place], [place], [place], [place]) Address [address] [place] [address] Care Team Providers Care Manual Training Teacher Name Role Phone Akhil Brown MD Primary Care Provider [phone]- [phone] Encounter Details Date Type Department Care Team (Late st Contact Info) Description 09/17/2021 Transcribed Document [facility] [place] Family Medicine [facility] [place] [address] ProviderNayeli MD [address] [place] [address] Social History Tobacco Use Types Packs/Day Years Used Date Smoking Tobacco: Never Assessed Comments Unknown Sex and Gender Information Value Date Recorded Sex Assigned at Not on file Legal Sex Female 3:37 PM CDT Gender Identity Not on file Sexual Orientation Not on file documented as of this encounter Miscellaneous Notes * Cerner Conversion Note - Nayeli ProviderMD - 09/17/2021 11:29 AM LABORATORY COURIER Stroke/Warfarin Instructions Entered On: 09/17/2021 11:29 EST Performed On: 09/17/2021 11:29 EST by Kayla Osullivan RN Stroke/Warfarin Instructions Stroke/TIA Discharge Ins : N/A Warfarin Discharge Ins : N/A Kayla Osullivan RN - 09/17/2021 11:29 EST documented in this encounter Plan of Treatment Not on file documented as of this encounter Visit Diagnoses Not on filedocumented in this encounter Care Teams Manual Training Teacher Relationship Specialty Start Date End Date Akhil Brown MD [address] [place] [phone] PCP - General Family Medicine 06/09/23 documented as of this encounter
[2025-06-13 10:30] VITALS: BP 157/103; PULSE 68; O2SAT 97
[2025-06-13 11:00] VITALS: BP 177/96; PULSE 56; O2SAT 98
--- NOTE | 2025-06-13 11:22 | [facility].EDGENADL ---
Discharge Plan Disposition Patient Disposition: Home, Self-Care Prescriptions Prescriptions: New amoxicillin-pot clavulanate 875-125 mg tablet 1 tab PO BID 7 Days Qty: 14 0RF No Action levothyroxine [Synthroid] 25 mcg tablet 25 mcg PO DAILY 90 Days Qty: 90 meloxicam 15 mg tablet 15 mg PO DAILY 90 Days Qty: 90 venlafaxine [Effexor XR] 150 mg capsule,extended release 24hr 150 mg PO DAILY 90 Days Qty: 90 atorvastatin [Lipitor] 10 mg tablet 10 mg PO HS 90 Days Qty: 90 Xarelto 20 mg tablet 20 mg PO HS 90 Days Qty: 90 valsartan-hydrochlorothiazide [Diovan HCT] 320-12.5 mg tablet 1 tab PO DAILY acetaminophen [Tylenol Extra Strength] 500 mg tablet 500 mg PO Q6H PRN (Reason: Pain) sotalol [Betapace] 80 mg tablet 40 mg PO BID PRN (Reason: Blood Pressure) cefdinir 300 mg capsule 300 mg PO BID 5 Days Qty: 10 0RF lidocaine 5 % adhesive patch,medicated 1 patch topical DAILY PRN (Reason: back pain) 30 Days Qty: 30 0RF Rx Instructions: leave on most painful area for up to 12 hrs Referrals Follow up/Referrals: Akhil Brown MD [Primary Care Provider, Medical] - See instructions Activity Restrictions/Add. Instructions Additional Instructions/Restrictions: Your superficial wounds were cleaned and dressed and not in need of further repair. They will heal by secondary intention and will close up on their own you need to keep them clean with soap and water and topical antibiotic ointment on them until they are healed. Please take your prophylactic antibiotics to completion and return with any spreading redness pus coming from the wounds high fevers etc. Clinical Impressions Clinical Impression: Dog bite, Arm abrasion Instructions Patient Instructions: Animal Bites Print Language Print Language: Thai Discharge ED Provider: Nina Mustafa General Adult HPI General Chief complaint: Animal Bite Stated complaint: [id number]- Dog bit left and right hands and arms Time Seen by Provider: 06/13/25 11:14 Mode of Arrival: Ambulatory Source of Information: Patient Description of Symptoms (Recalled from ER Triage Doc. by RN): pt states she was bit by her dog. per report pt's dog were fighting when she tried to get them apart. pt reports 3 bites. pt uncertain on last tetanus. History of Present Illness HPI narrative: Patient is a 79-year-old female presents today with bilateral upper extremity wounds following her dog attacking her and biting her. This has happened multiple times in the past. Patient's last tetanus was within the last year. She states the dog has attacked her multiple times in the past she is not concerned about rabies. This is not out of the ordinary where the character of this dog. Wounds were cleaned extensively prior to my evaluation by one of our nurses. Related Data Home Medications ?Medication ?Instructions ?Recorded ?Confirmed levothyroxine 25 mcg tablet 25 mcg PO DAILY thyroid 90 days 08/07/20 02/22/25 (Synthroid) #90 tabs meloxicam 15 mg tablet 15 mg PO DAILY Pain 90 days #90 08/07/20 02/22/25 tabs venlafaxine 150 mg 150 mg PO DAILY mood 90 days #90 08/07/20 02/22/25 capsule,extended release 24 hr caps (Effexor XR) valsartan 320 1 tab PO DAILY blood pressure 08/22/20 02/22/25 mg-hydrochlorothiazide 12.5 mg tablet (Diovan HCT) atorvastatin 10 mg tablet (Lipitor) 10 mg PO HS Cholesterol 90 days 11/13/20 02/22/25 #90 tabs rivaroxaban 20 mg tablet (Xarelto) 20 mg PO HS Blood thinner 90 days 11/13/20 02/22/25 #90 tabs acetaminophen 500 mg tablet 500 mg PO Q6H PRN Pain 05/14/21 02/22/25 (Tylenol Extra Strength) sotalol 80 mg tablet (Betapace) 40 mg PO BID PRN Blood Pressure 12/22/22 02/22/25 Previous Rx's ?Medication ?Instructions ?Recorded cefdinir 300 mg capsule 300 mg PO BID 5 days #10 caps 02/16/25 lidocaine 5 % topical patch 1 patch topical DAILY PRN back 02/24/25 pain 30 days #30 ea amoxicillin 875 mg-potassium 1 tab PO BID 7 days #14 tabs 06/13/25 clavulanate 125 mg tablet Allergies Allergy/AdvReac Type Severity Reaction Status Date / Time venom-honey bee Allergy Intermediate Unknown Verified 02/22/25 13:41 allergy reaction venom-wasp Allergy Intermediate Unknown Verified 02/22/25 13:41 allergy reaction diphenhydramine (From Allergy Unknown HYPER Verified 02/22/25 13:41 BENADRYL) tuberculin, purified protein Allergy Unknown I-HIVES Verified 02/22/25 13:41 deriva (TUBERCULIN, PURIFIED PROTEIN DERIVA) COVID-19 (SARS-CoV-2) Allergy Unknown Verified 02/22/25 13:41 vaccine, olga allergy reaction PFS PFS Disclaimer: The information contained in this section may have been updated after the patient was seen, as this information can be updated by other users. Medical History (Updated 06/13/25 @ 11:21 by Nina Mustafa MD) Schizophrenia Thyromegaly Lymphadenopathy History of cataract Palpitations SOB (shortness of breath) on exertion Chest pain Dementia Schizophrenia Hyperlipidemia Sinus bradycardia Osteoarthritis Hypothyroid Hypertension Atrial fibrillation History of anemia Uterine cancer Skin cancer Surgical History Hx of melanoma excision Hx of dilation and curettage History of hysterectomy History of cholecystectomy Family History Other Family history of diabetes mellitus type II Family history of hypertension Family history of myocardial infarction Social History (Updated 02/22/25 @ 13:39 by Marcello Benitez RN) Smoking Status: Unknown if ever smoked alcohol intake: never substance use type: denies use current occupational status: retired Travel in the last 8 weeks?: None household members: none housing: house lives independently: Yes marital status: education level: high school current occupational exposures/hazards: No caffeine: No in current or past relationships, have you been: made to feel afraid do you feel safe at home: Yes victim of physical abuse: No victim of emotional abuse: No victim of sexual abuse: No would you like helpful sources: No Have you lived/traveled outside [place] in past 30 days?: No Contact w/someone who lives/traveled outside [place] past 30 days?: No Exposure to someone with infectious disease in past 14 days?: No Do you have a fever (greater than 100.4 F or 38 C)?: No Have you tested positive for COVID-19?: No Exposed to someone with COVID-19 in past 14 days?: No Do you have a sore throat?: No Do you have a cough?: No Do you have any weakness?: No Do you have any diarrhea?: No Are you experiencing any unusual bleeding?: No Do you have any muscle aches/pain?: No Do you have any abdominal pain?: No Are you experiencing loss of taste or smell?: No Other Medical History Have you received the Flu Vaccine for this season: No Have you received the Pneumonia Vaccine: No ROS Obtained: Yes All systems reviewed & no additional complaints except as documented Physical Exam General General appearance: alert and in no apparent distress Respiratory Respiratory exam: Present normal lung sounds bilaterally Cardiovascular Cardiovascular exam: Present regular rate Extremities Exam Extremities exam: Present other (Bilateral multiple upper extremity superficial abrasions and very superficial tissue avulsions nothing requiring any type of tissue reapproximation no deeper wounds or puncture wounds noted all the wounds are very clean on my evaluation) Neurological Exam Neurological exam: Present alert and oriented X3 Medical Decision Making Medical Records Screening: Per USPSTF and CDC recommendations, given the prevalence of disease in our region, it is our hospital?s policy to screen for HIV and viral Hepatitis for all patients aged 18 and over and those with ongoing risk factors. Seht Inquiry Pt receiving controlled substance: No Vital Signs: 06/13/25 09:59 06/13/25 10:01 06/13/25 10:30 Temperature 97.9 F Temperature Source Oral Pulse Rate 68 68 Pulse Rate [Right Radial] 69 Respiratory Rate 18 Blood Pressure 167/96 H 157/103 H Blood Pressure [Right Arm] 156/115 H Blood Pressure Mean [Right Arm] 128 Blood Pressure Source [Right Arm] Automatic Cuff Blood Pressure Position [Right Arm] Sitting 02 Sat by Pulse Oximetry 98 98 97 Oxygen Delivery Method Room Air 06/13/25 11:00 Temperature Temperature Source Pulse Rate 56 L Pulse Rate [Right Radial] Respiratory Rate Blood Pressure 177/96 H Blood Pressure [Right Arm] Blood Pressure Mean [Right Arm] Blood Pressure Source [Right Arm] Blood Pressure Position [Right Arm] 02 Sat by Pulse Oximetry 98 Oxygen Delivery Method Orders (Tests/Meds): ED MEDICATIONS Generic Name Dose Route Start Last Admin Trade Name Freq PRN Reason Stop Dose Admin Amoxicillin/Clavulanate Potassium 1 each 06/13/25 11:19 Amoxicillin/Clavulanate Potassium 875/125mg Tablet PO 06/13/25 11:20 ONCE ONE Medical Decision Narrative: Patient with multiple superficial and clean wounds from her dog attacking her. Patient states that she is not concerned about rabies as this dog is done this multiple times in the past but she is going to seek to have the dog put down as this has been a recurrent problem. Nothing requires any type of primary closure and local wound care has been discussed Augmentin was given in the emergency department and prescription of prophylactic antibiotics sent home with the patient patient was given return precautions and discharged in stable condition. Critical Care Critical Care Time Critical Care Time: No
[2025-06-13] MEDS: AMOXICILLIN/CLAVULANATE POTASSIUM 875/125MG TABLET 1 EACH PO (11:26)
[2025-06-13 11:34] VITALS: BP 191/84; PULSE 58; RESP 18; TEMP 36.4; O2SAT 98
== END 2025-06-13 11:40 | disposition home or self-care (01) ==
PROVIDERS: Emergency Provider Student in an Organized Health Care Education/Training Program; PCP Family Medicine
DX: S50.811A Abrasion of right forearm, initial encounter (principal); S50.812A Abrasion of left forearm, initial encounter; W54.0XXA Bitten by dog, initial encounter
CPT/HCPCS: 99283